=== PATIENT | male | born 1965 | race Caucasian/White ===

== ENCOUNTER → 2016-11-28 | Outpatient (CLI) | payer OTHER ==
[~2016-11-28] MED LIST: DOBUTamine DRIP for NUC MED 500 MG in DEXTROSE/WATER 1 250ML.BAG IV ONE; DOBUTamine DRIP for NUC MED 500 MG/250 ML BAG IV ONE
--- NOTE | 2016-11-28 09:05 | US ---
EXAMINATION TYPE: US thyroid st tissue head/neck DATE OF EXAM: 11/28/2016 8:47 AM COMPARISON: No previous CLINICAL HISTORY: R07.9 Chest Pain,R22.1 Mass of neck. Left neck palpable area x 6 months TECHNOLOGIST IMPRESSION: Scanned left neck palpable area: 0.5 x 0.5 x 0.5cm hypoechoic area, 0.7 x 0 .4 x 0.6cm hypoechoic vascular area - possible lymph node Scanned right neck for comparison: appears wnl at this time IMPRESSION: 2 small hypoechoic nodules in the region of the palpable mass on the left. These are not classic for lymph nodes. A CT scan of the neck would be suggested.
--- NOTE | 2016-11-28 10:47 | ECHOS ---
DATE OF SERVICE: 11/28/2016 AGE: 51Y SEX: M HT: 67" WT: 200 lbs. Protocol Colby: Others: Dobutamine Stress Echo Stage: 2 Dur. of Exercise: 8 min, 18 secs. *Heart Rate Blood Pressure *Rest: 90 Rest: 140/90 * *Max. Achieved: 148 Maximum BP: 116/50 85% PMHR: 143 100% PMHR: 168 *METS: - INDICATIONS: Chest pain. MEDICATIONS: Vitamins. Mr. Ortiz is a 51-year-old gentleman with history of smoking and shortness of breath and chest pain, being evaluated for cardiac status. STRESS DATA: Baseline EKG showed sinus rhythm with normal IA interval and QRS duration with mild ST-T changes in the inferolateral leads. Blood pressure at rest is 140/90 with a pulse rate of 90. Patient was given IV dobutamine and was titrated to 30 mcg, achieving a maximum heart rate of 148 with a blood pressure of 116/50. EKGs taken and during the exercise showed more pronounced ST-T abnormalities in the inferolateral leads, but felt to be nonspecific because of baseline EKG changes. Patient did not experience any chest pain. Baseline echo images show normal wall motion and thickening. Exercise echo images taken at low-dose and high-dose dobutamine showed augmentation of the wall motion and thickening in all the segments. FINAL IMPRESSION: 1. Nondiagnostic dobutamine stress test because of baseline EKG abnormalities. 2. Negative dobutamine stress echo.
== END | disposition home or self-care (01) ==
LOC: RADUSMAIN 08:07
PROVIDERS: ATTEND Family Medicine
DX: E04.2 Nontoxic multinodular goiter (principal); R07.9 Chest pain, unspecified
CPT/HCPCS: 76536; 93017; 93350

== ENCOUNTER → 2016-12-07 | Outpatient (CLI) | payer OTHER ==
--- NOTE | 2016-12-07 07:39 | CT ---
EXAMINATION TYPE: CT soft tissue neck w con DATE OF EXAM: 12/07/2016 7:12 AM COMPARISON: NONE HISTORY: Lt neck mass CT DLP: 746 mGycm Automated exposure control for dose reduction was used. CONTRAST: CT scan of the neck is performed following with IV Contrast, patient injected with 100 ml mL of Omnip aque 300. Axial images are obtained, coronal and sagittal reformatted images are reviewed. FINDINGS: Visualized intracranial structures are unremarkable. There are mild emphysematous changes throughout the lungs. Vertebral body height and alignment are maintained. Atlantoaxial relationships are normal. There is n o significant degenerative change. In the region of the patient's neck mass there is a prominent external jugular vein. No soft tissue m asses seen. Major salivary glands are unremarkable. The parapharyngeal, oropharyngeal and laryngeal soft tissues are normal. The thyroid gland enhances homogeneously. There is some shotty deep cervical adenopathy. No pathologically enlarged lymph nodes are seen. IMPRESSION: 1. Emphysematous changes within the lungs. 2. No soft tissue mass in the region of the patient's neck mass. There is a prominent external jugula r vein.
== END | disposition home or self-care (01) ==
LOC: RADCTMAIN 06:44
PROVIDERS: ATTEND Family Medicine
DX: R22.1 Localized swelling, mass and lump, neck (principal)
CPT/HCPCS: 70491; Q9967

== ENCOUNTER 2020-01-15 16:24 | Emergency (ER) | payer BC, OTHER ==
--- NOTE | 2020-01-15 17:29 | ED ---
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 No trauma. Patient notes slightly PG mostly in his left ankle but he does not some swelling in both legs tightness of his left calf no significant tenderness of his right calf. No cervical medical history takes no medication. Patient denying current chest pain no shortness of breath. No prior history of blood clot or DVT, no history of PE. Patient does smoke no significant alcohol history MD Complaint: extremity pain, extremity swelling, other (Bilateral lower extr emity edema and swelling worsen left) -: days(s) Location: lower extremity, bilateral lower extremity History of Same: No Radiation: none Severity scale (1-10): 3 Consistency: constant Improves with: nothing Worsens with: nothing Associated Symptoms: denies other symptoms - Related Data Allergies Allergy/AdvReac Type Severity Reaction Status Date / Time No Known Allergies Allergy Unverified 01/15/20 16:30 Review of Systems ROS Statement: Those systems with pertinent positive or pertinent negative responses have been documented in the HPI. ROS Other: All systems not noted in ROS Statement are negative. Past Medical History Past Medical History: Hypertension History of Any Multi-Drug Resistant Organisms: None Reported Past Surgical History: Orthopedic Surgery Past Psychological History: No Psychological Hx Reported Smoking Status: Former smoker Past Alcohol Use History: None Reported Past Drug Use History: None Reported General Exam Limitations: no limitations General appearance: alert, in no apparent distress Head exam: Present: atraumatic, normocephalic, normal inspection Eye exam: Present: normal appearance, PERRL, EOMI. Absent: scleral icterus, conjunctival injection, periorbital swelling ENT exam: Present: normal exam, mucous membranes moist Neck exam: Present: normal inspection. Absent: tenderness, meningismus, lymphadenopathy Respiratory exam: Present: normal lung sounds bilaterally. Absent: respiratory distress, wheezes, rales, rhonchi, stridor Cardiovascular Exam: Present: regular rate, normal rhythm, normal heart sounds. Absent: systolic murmur, diastolic murmur, rubs, gallop, clicks GI/Abdominal exam: Present: soft, normal bowel sounds. Absent: distended, tenderness, guarding, rebound, rigid Extremities exam: Present: normal inspection, full ROM, normal capillary refill. Absent: tenderness, pedal edema, joint swelling, calf tenderness Back exam: Present: normal inspection Neurological exam: Present: alert, oriented X3, CN II-XII intact Psychiatric exam: Present: normal affect, normal mood Skin exam: Present: warm, dry, intact, normal color. 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 Patient will be discharged - Radiology Data Radiology results: report reviewed (X-ray left ankle negative for traumatic injury bilateral ultrasound of lower extremities is negative for DVT), image reviewed Disposition Clinical Impression: Bilateral leg edema Disposition: HOME SELF-CARE Condition: Good Instructions (If sedation given, give patient instructions): Leg Edema (ED) Is patient prescribed a controlled substance at d/c from ED?: No Referrals: Ashlee Granados MD [Primary Care Provider] - 1-2 days
--- NOTE | 2020-01-15 17:53 | XR ---
EXAMINATION TYPE: XR chest 2V DATE OF EXAM: 01/15/2020 COMPARISON: NONE HISTORY: Swelling and pain TECHNIQUE: FINDINGS: Heart and mediastinum are normal. There is small linear density at the left lung base. The other lung hirsch are clear. There are no hilar masses. Bony thorax is intact. IMPRESSION: Subsegmental atelectasis at the left lung base. Normal heart.
--- NOTE | 2020-01-15 18:18 | US ---
EXAMINATION TYPE: US venous doppler duplex LE DATE OF EXAM: 01/15/2020 5:24 PM COMPARISON: NONE CLINICAL HISTORY: pain. bilateral feet swelling, no h/o dvt SIDE PERFORMED: Bilateral TECHNIQUE: The lower extremity deep venous system is examined utilizing real time linear array sonog nicole with graded compression, doppler sonography and color-flow sonography. VESSELS IMAGED: External Iliac Vein (EIV) Common Femoral Vein Deep Femoral Vein Greater Saphenous Vein * Femoral Vein Popliteal Vein Small Saphenous Vein * Proximal Calf Veins (* superficial vessels) Right Leg: Appears negative for DVT Left Leg: Appears negative for DVT IMPRESSION: Normal exam. No evidence of deep vein thrombosis in both legs.
[2020-01-15 18:35] VITALS: BP 144/100; PULSE 88; RESP 17; TEMP 97.6
--- NOTE | 2020-01-15 18:54 | XR ---
EXAMINATION TYPE: XR ankle complete LT DATE OF EXAM: 01/15/2020 COMPARISON: NONE HISTORY: Ankle pain and swelling TECHNIQUE: 3 views FINDINGS: Ankle mortise is anatomic. There is mild soft tissue swelling around the ankle joint. There is plantar calcaneal spurring. I see no fracture. IMPRESSION: Calcaneal spurring. No fracture seen.
== END 2020-01-15 19:10 | disposition home or self-care (01) ==
LOC: EC 16:24
DX: R60.0 Localized edema (principal); I10 Essential (primary) hypertension; Z87.891 Personal history of nicotine dependence
CPT/HCPCS: 71046; 93970; 99284

== ENCOUNTER 2021-03-01 13:35 | Inpatient (IN) | payer BC, OTHER ==
[2021-03-01] MEDS ORDERED: methylPREDNISolone SOD SUCCI 125 MG/2 ML VIAL IV STA (13:44)
[2021-03-01] MEDS ORDERED: ALBUTEROL HFA INHALER INHALATION STA (13:46)
--- NOTE | 2021-03-01 14:04 | ED ---
SOB HPI - General Chief Complaint: Shortness of Breath Stated Complaint: LUCINDA Time Seen by Provider: 03/01/21 13:35 Source: EMS, RN notes reviewed Mode of arrival: EMS Limitations: physical limitation - History of Present Illness Initial Comments: This is a 55-year-old male with a history of hypertension a former smoker who quit 5 years ago who states he had the onset 3 days ago of shortness of breath fever of up to 105 exertional dyspnea some cough no chest pain. He was seen at an outpatient clinic today and diagnosed with COVID-19 he was found be hypoxemic dyspneic. He was transported here by EMS. He did have saturations reported in the 70s or lower. Upon arrival here the patient was dyspneic he did seem to have some mildly and has abdominal area and chest. He was awake alert oriented 3. MD Complaint: shortness of breath - Related Data Home Medications Medication Instructions Recorded Confirmed amLODIPine [Norvasc] 10 mg PO HS 03/01/21 03/01/21 lisinopriL [Zestril] 5 mg PO HS 03/01/21 03/01/21 Allergies Allergy/AdvReac Type Severity Reaction Status Date / Time No Known Allergies Allergy Verified 03/01/21 15:07 Review of Systems ROS Statement: Those systems with pertinent positive or pertinent negative responses have been documented in the HPI. ROS Other: All systems not noted in ROS Statement are negative. Past Medical History Past Medical History: Hypertension History of Any Multi-Drug Resistant Organisms: None Reported Past Surgical History: Orthopedic Surgery Past Psychological History: No Psychological Hx Reported Smoking Status: Former smoker Past Alcohol Use History: None Reported Past Drug Use History: None Reported General Exam - General Exam Comments Initial Comments: This is a well-developed well-nourished awake alert oriented times 3 male Limitations: physical limitation General appearance: alert, anxious, in distress Head exam: Present: atraumatic, normocephalic, normal inspection Eye exam: Present: normal appearance, PERRL, EOMI. Absent: scleral icterus, conjunctival injection, periorbital swelling ENT exam: Present: mucous membranes dry Neck exam: Present: normal inspection. Absent: tenderness, meningismus, lymphadenopathy Respiratory exam: Present: respiratory distress, wheezes, rales, decreased breath sounds, other (Tachypnea). Absent: rhonchi, stridor Cardiovascular Exam: Present: normal rhythm, tachycardia, normal heart sounds. Absent: systolic murmur, diastolic murmur, rubs, gallop, clicks GI/Abdominal exam: Present: soft, normal bowel sounds. Absent: distended, tenderness, guarding, rebound, rigid Extremities exam: Present: normal inspection, full ROM, normal capillary refill. Absent: tenderness, pedal edema, joint swelling, calf tenderness Back exam: Present: normal inspection Neurological exam: Present: alert, oriented X3, CN II-XII intact Psychiatric exam: Present: normal affect, normal mood Skin exam: Present: warm, dry, intact, other (Some mottling of the chest abdominal wall to remedy involvement). Absent: rash Course Vital Signs 03/01/21 03/01/21 03/01/21 13:36 13:44 15:15 Temperature 98.3 F Pulse Rate 129 H 131 H 120 H Respiratory 30 H 30 H 29 H Rate Blood Pressure 151/88 148/90 145/87 O2 Sat by Pulse 88 L 92 L 90 L Oximetry 03/01/21 03/01/21 16:00 16:47 Temperature Pulse Rate 114 H Respiratory 26 H Rate Blood Pressure 123/97 O2 Sat by Pulse 83 L 86 L Oximetry - Reevaluation(s) Reevaluation #1: 03/01/21 17:15 I did reevaluate the patient's multiple occasions he is feeling somewhat improved he has shown some improvement in his pulse oximetry. Medical Decision Making - Medical Decision Making I did discuss findings with the patient and with Dr. Potts who did come see the patient in emergency department CT was negative for evidence of PE. Patient will be admitted for inpatient evaluation and treatment of COVID-19 pneumonia as well as hypoxemia bronchospasm. He does have an elevated lactic acid secondary to dehydration - Lab Data Result diagrams: 03/01/21 13:48 03/01/21 15:51 Lab Results 03/01/21 03/01/21 03/01/21 Range/Units 13:48 13:48 13:48 WBC 4.7 (3.8-10.6) k/uL RBC 6.03 H (4.30-5.90) m/uL Hgb 18.9 H (13.0-17.5) gm/dL Hct 54.7 H (39.0-53.0) % MCV 90.7 (80.0-100.0) fL MCH 31.3 (25.0-35.0) pg MCHC 34.5 (31.0-37.0) g/dL RDW 14.3 (11.5-15.5) % Plt Count 171 (150-450) k/uL MPV 8.5 Neutrophils % 82 % Lymphocytes % 10 % Monocytes % 5 % Eosinophils % 1 % Basophils % 1 % Neutrophils # 3.9 (1.3-7.7) k/uL Lymphocytes # 0.5 L (1.0-4.8) k/uL Monocytes # 0.2 (0-1.0) k/uL Eosinophils # 0.0 (0-0.7) k/uL Basophils # 0.1 (0-0.2) k/uL PT 10.5 (9.0-12.0) sec INR 1.0 (<1.2) APTT 21.6 L (22.0-30.0) sec D-Dimer 1.11 H (<0.60) mg/L FEU Sodium (137-145) mmol/L Potassium (3.5-5.1) mmol/L Chloride (98-107) mmol/L Carbon Dioxide (22-30) mmol/L Anion Gap mmol/L BUN (9-20) mg/dL Creatinine (0.66-1.25) mg/dL Est GFR (CKD-EPI)AfAm (>60 ml/min/1.73 sqM) Est GFR (CKD-EPI)NonAf (>60 ml/min/1.73 sqM) Glucose (74-99) mg/dL Lactic Ac Sepsis Rflx Plasma Lactic Acid Kavon 3.1 H* (0.7-2.0) mmol/L Calcium (8.4-10.2) mg/dL Magnesium (1.6-2.3) mg/dL Total Bilirubin (0.2-1.3) mg/dL AST (17-59) U/L ALT (4-49) U/L Alkaline Phosphatase (38-126) U/L Creatine Kinase (55-170) U/L Troponin I (0.000-0.034) ng/mL NT-Pro-B Natriuret Pep pg/mL Total Protein (6.3-8.2) g/dL Albumin (3.5-5.0) g/dL 05//21 05/05/21 05/05/21 Range/Units 13:48 13:48 14:42 WBC (3.8-10.6) k/uL RBC (4.30-5.90) m/uL Hgb (13.0-17.5) gm/dL Hct (39.0-53.0) % MCV (80.0-100.0) fL MCH (25.0-35.0) pg MCHC (31.0-37.0) g/dL RDW (11.5-15.5) % Plt Count (150-450) k/uL MPV Neutrophils % % Lymphocytes % % Monocytes % % Eosinophils % % Basophils % % Neutrophils # (1.3-7.7) k/uL Lymphocytes # (1.0-4.8) k/uL Monocytes # (0-1.0) k/uL Eosinophils # (0-0.7) k/uL Basophils # (0-0.2) k/uL PT (9.0-12.0) sec INR (<1.2) APTT (22.0-30.0) sec D-Dimer (<0.60) mg/L FEU Sodium (137-145) mmol/L Potassium (3.5-5.1) mmol/L Chloride (98-107) mmol/L Carbon Dioxide (22-30) mmol/L Anion Gap mmol/L BUN (9-20) mg/dL Creatinine (0.66-1.25) mg/dL Est GFR (CKD-EPI)AfAm (>60 ml/min/1.73 sqM) Est GFR (CKD-EPI)NonAf (>60 ml/min/1.73 sqM) Glucose (74-99) mg/dL Lactic Ac Sepsis Rflx Y Plasma Lactic Acid Kavon (0.7-2.0) mmol/L Calcium (8.4-10.2) mg/dL Magnesium (1.6-2.3) mg/dL Total Bilirubin (0.2-1.3) mg/dL AST (17-59) U/L ALT (4-49) U/L Alkaline Phosphatase (38-126) U/L Creatine Kinase (55-170) U/L Troponin I <0.012 (0.000-0.034) ng/mL NT-Pro-B Natriuret Pep 133 pg/mL Total Protein (6.3-8.2) g/dL Albumin (3.5-5.0) g/dL 03/01/21 Range/Units 15:51 WBC (3.8-10.6) k/uL RBC (4.30-5.90) m/uL Hgb (13.0-17.5) gm/dL Hct (39.0-53.0) % MCV (80.0-100.0) fL MCH (25.0-35.0) pg MCHC (31.0-37.0) g/dL RDW (11.5-15.5) % Plt Count (150-450) k/uL MPV Neutrophils % % Lymphocytes % % Monocytes % % Eosinophils % % Basophils % % Neutrophils # (1.3-7.7) k/uL Lymphocytes # (1.0-4.8) k/uL Monocytes # (0-1.0) k/uL Eosinophils # (0-0.7) k/uL Basophils # (0-0.2) k/uL PT (9.0-12.0) sec INR (<1.2) APTT (22.0-30.0) sec D-Dimer (<0.60) mg/L FEU Sodium 137 (137-145) mmol/L Potassium 4.3 (3.5-5.1) mmol/L Chloride 101 (98-107) mmol/L Carbon Dioxide 24 (22-30) mmol/L Anion Gap 12 mmol/L BUN 34 H (9-20) mg/dL Creatinine 1.42 H (0.66-1.25) mg/dL Est GFR (CKD-EPI)AfAm 64 (>60 ml/min/1.73 sqM) Est GFR (CKD-EPI)NonAf 55 (>60 ml/min/1.73 sqM) Glucose 168 H (74-99) mg/dL Lactic Ac Sepsis Rflx Plasma Lactic Acid Kavon (0.7-2.0) mmol/L Calcium 8.1 L (8.4-10.2) mg/dL Magnesium 2.1 (1.6-2.3) mg/dL Total Bilirubin 0.4 (0.2-1.3) mg/dL AST 58 (17-59) U/L ALT 30 (4-49) U/L Alkaline Phosphatase 85 (38-126) U/L Creatine Kinase 112 (55-170) U/L Troponin I (0.000-0.034) ng/mL NT-Pro-B Natriuret Pep pg/mL Total Protein 6.4 (6.3-8.2) g/dL Albumin 3.6 (3.5-5.0) g/dL - EKG Data -: EKG Interpreted by Me EKG shows normal: sinus rhythm EKG Comments: Sinus tachycardia rate 131. Interval 112 QRS duration 80 QT since QTC 386/[address] configuration - Radiology Data Radiology results: report reviewed (Imaging reviewed evidence of bilateral infiltrates consistent with COVID-19. No evidence of pulmonary emboli at this time), image reviewed Critical Care Time Critical Care Time: Yes Total Critical Care Time: 39 Critical Care Time: Critical care time includes initial presentation with history physical labs x- rays discussed with paramedics on arrival frequent reevaluation the patient response to treatment. Discussed with the patient regarding the findings discussed with the main physician admission orders and documentation of the above Disposition Clinical Impression: Pneumonia due to COVID-19 virus, Bronchospasm, acute, Dehydration, Hypoxemia, Lactic acidosis Disposition: ADMITTED IP TO THIS HOSP Condition: Serious Referrals: Ashlee Granados MD [Primary Care Provider] - 1-2 days
--- NOTE | 2021-03-01 14:09 | XR ---
EXAMINATION TYPE: XR chest 1V portable DATE OF EXAM: 03/01/2021 HISTORY: Dyspnea, Covid postitive COMPARISON: 01/15/2020 TECHNIQUE: Single view of the chest is submitted. FINDINGS: Demonstrated are scattered senescent parenchymal change. Interval development of interstitial perihilar and basilar infiltrates compatible with Covid 19 pneum onia. The heart is stable. Hilar and mediastinal structures are within normal limits. Degenerative changes are seen of the dorsal spine. IMPRESSION: 1. Interval development of interstitial perihilar and basilar infiltrates compatible with Covid 19 p neumonia.
[2021-03-01 14:21] LABS: Basophils # (A) 0.1 k/uL (0-0.2); Basophils % (A) 1 %; Eosinophils % (A) 1 %; HCT 54.7 % (39.0-53.0); HGB 18.9 gm/dL (13.0-17.5); Lymphocytes # (A) 0.5 k/uL (1.0-4.8); Lymphocytes % (A) 10 %; MCH 31.3 pg (25.0-35.0); MCHC 34.5 g/dL (31.0-37.0); MCV 90.7 fL (80.0-100.0); Mean Platelet Volume 8.5; Monocytes # (A) 0.2 k/uL (0-1.0); Monocytes % (A) 5 %; Neutrophils # (A) 3.9 k/uL (1.3-7.7); Neutrophils % (A) 82 %; Platelet Count 171 k/uL (150-450); RBC 6.03 m/uL (4.30-5.90); RDW 14.3 % (11.5-15.5); WBC 4.7 k/uL (3.8-10.6)
[2021-03-01 14:49] LABS: Partial Thromboplastin Time 21.6 sec (22.0-30.0); Prothrombin Time 10.5 sec (9.0-12.0)
[2021-03-01] MEDS ORDERED: SODIUM CHLORIDE 0.9% 1,000 ML IV STA ×2 (14:51)
--- NOTE | 2021-03-01 16:03 | CT ---
EXAMINATION TYPE: CT angio chest DATE OF EXAM: 03/01/2021 3:54 PM COMPARISON: Chest x-ray earlier today. HISTORY: Shortness of breath. Positive d-dimer. CT DLP: 548.2 mGycm Automated exposure control for dose reduction was used. CONTRAST: CTA scan of the thorax is performed with IV Contrast, patient injected with 100 mL of Isovue 370, pul monary embolism protocol. MIP images are created and reviewed. FINDINGS: LUNGS: Moderate emphysematous change greatest in the upper lungs. Overall mosaic attenuation with mor e confluent opacities in the lower lungs. No pleural effusion or pneumothorax. MEDIASTINUM: There is satisfactory enhancement of the pulmonary artery and its branches, there is no CT evidence for pulmonary embolism. Satisfactory enhancement of the aorta without dissection or aneu rysm There are prominent bilateral hilar lymph nodes. Coronary artery calcification noted. No cardi omegaly or pericardial effusion is seen. OTHER: Visualized liver hypodense consistent with diffuse fatty infiltration. Levoconvex scoliosis c entered upper to mid thoracic spine. IMPRESSION: No CT evidence for acute pulmonary embolism. Multifocal and confluent groundglass opaciti es with lower lung organizing consolidations bilaterally consistent with covid-19 infection.
[2021-03-01 16:22] LABS: Albumin 3.6 g/dL (3.5-5.0); Calcium 8.1 mg/dL (8.4-10.2); Magnesium 2.1 mg/dL (1.6-2.3); Potassium 4.3 mmol/L (3.5-5.1); Total Bilirubin 0.4 mg/dL (0.2-1.3); Total Protein 6.4 g/dL (6.3-8.2)
[2021-03-01] MEDS ORDERED: ACETAMINOPHEN TAB 325 MG TAB PO PRN (17:27)
[2021-03-01] MEDS ORDERED: NALOXONE 0.4 MG/ML 1 ML VIAL IV PRN (17:28)
[2021-03-01 18:38] LABS: Partial Thromboplastin Time 22.6 sec (22.0-30.0); Prothrombin Time 10.3 sec (9.0-12.0)
[2021-03-01 19:09] LABS: C Reactive Protein 15.4 mg/dL (<1.0)
[2021-03-01] MEDS: ALBUTEROL HFA INHALER INHALATION PRN (20:23)
[2021-03-01] MEDS ORDERED: lisinopriL 5 MG TAB PO SCH (21:00)
[2021-03-01] MEDS: amLODIPine 10 MG TAB PO SCH (21:19)
[2021-03-01] MEDS: FAMOTIDINE 20 MG TAB PO SCH (21:19)
--- NOTE | 2021-03-02 00:08 | P.HPIM ---
History of Present Illness H&P Date: 03/01/21 Chief Complaint: LUCINDA Patient is a 55-year-old male with a known history of hypertension and previous history of smoking presents to ER due to worsening shortness of breath since Saturday. Patient states that he flew from [place] about 3 days ago and since then he has been having fever exertional dyspnea and cough and shortness of breath which has been worsening since then. Patient was seen at outpatient clinic today and was diagnosed with COVID-19. Patient was found to be hypoxic and was having exertional dyspnea and sent to ER. Pulse ox was in the 70s as reported. Patient was dyspneic on on admission and was placed on 100% nonrebreather at 15 L oxygen and FiO2 90%. Her oxygen saturations went up to 88 to 90%. On admission blood pressure was 151/88 respiratory rate 30 heart rate 129 and pulse ox 88% on 15 L oxygen via nonrebreather. Chest x-ray showed interval development of interstitial perihilar and basilar infiltrates compatible with COVID-19 pneumonia. CTA chest showed no evidence of PE. Multifocal and confluent groundglass opacities with lower lung organizing consolidation bilaterally consistent with COVID-19 infection EKG showed sinus tachycardia Review of Systems Constitutional: Patient does have fever. no chills . generalized weakness and fatique. Abdomen: Patient denied nausea vomiting and diarrhea and abdominal pain. Cardiovascular: Patient denies any chest pain. +short of breath no palpitations. Respiratory:Patient does have cough without sputum production. + shortness of breath Neurologic: Patient denied any numbness or tingling headache. Musculoskeletal: Patient denies any complaints of joint swelling or deformity. Skin: Negative Psychiatric: Negative Endocrine: No heat or cold intolerance. No recent weight gain. Genitourinary: No dysuria or hematuria. All other 14 point ROS negative except the above Past Medical History Past Medical History: Hypertension History of Any Multi-Drug Resistant Organisms: None Reported Past Surgical History: Orthopedic Surgery Past Psychological History: No Psychological Hx Reported Smoking Status: Former smoker Past Alcohol Use History: None Reported Past Drug Use History: None Reported Medications and Allergies Home Medications Medication Instructions Recorded Confirmed Type amLODIPine [Norvasc] 10 mg PO HS 03/01/21 03/01/21 History lisinopriL [Zestril] 5 mg PO HS 03/01/21 03/01/21 History Allergies Allergy/AdvReac Type Severity Reaction Status Date / Time No Known Allergies Allergy Verified 03/01/21 15:07 Physical Exam Vitals: Vital Signs Temp Pulse Pulse Resp BP BP Pulse Ox 03/01/21 20:00 98.2 F 116 H 22 137/75 03/01/21 18:15 109 H 26 H 122/75 89 L 03/01/21 16:47 114 H 26 H 123/97 86 L 03/01/21 16:00 83 L 03/01/21 15:15 120 H 29 H 145/87 90 L 03/01/21 13:44 131 H 30 H 148/90 92 L 03/01/21 13:36 98.3 F 129 H 30 H 151/88 88 L Intake and Output 03/01/21 03/01/21 03/02/21 14:59 22:59 06:59 Other: Weight 99.79 kg 99.79 kg PHYSICAL EXAMINATION: Patient is lying in the bed comfortably, appears to be in mild distress, awake alert and oriented.. HEENT: Normocephalic. Neck is supple. Pupils reactive. Nostrils clear. Oral cavity is moist. Ears reveal no drainage. Neck reveals no JVD, carotid bruits, or thyromegaly. CHEST EXAMINATION: Trachea is central. Symmetrical expansion. Bilateral coarse breath sounds. No wheezing or rhonchi.. CARDIAC: Normal S1, S2 with no gallops. No murmurs ABDOMEN: Soft. Bowel sounds normal. No organomegaly. No abdominal bruits. Extremities: reveal no edema. No clubbing or cyanosis Neurologically awake, alert, oriented x3 with well-coordinated movements. No focal deficits noted Skin: No rash or skin lesions. Psychiatric: Coperative. Nonsuicidal Musculoskeletal: No joint swelling or deformity. Normal range of motion. Results CBC & Chem 7: 03/01/21 13:48 03/01/21 15:51 Labs: Abnormal Lab Results - Last 24 Hours (Table) 03/01/21 03/01/21 03/01/21 Range/Units 13:48 13:48 13:48 RBC 6.03 H (4.30-5.90) m/uL Hgb 18.9 H (13.0-17.5) gm/dL Hct 54.7 H (39.0-53.0) % Lymphocytes # 0.5 L (1.0-4.8) k/uL APTT 21.6 L (22.0-30.0) sec D-Dimer 1.11 H (<0.60) mg/L FEU BUN (9-20) mg/dL Creatinine (0.66-1.25) mg/dL Glucose (74-99) mg/dL Plasma Lactic Acid Kavon 3.1 H* (0.7-2.0) mmol/L Calcium (8.4-10.2) mg/dL Lactate Dehydrogenase (313-618) U/L C-Reactive Protein (<1.0) mg/dL 03/01/21 03/01/21 Range/Units 15:51 18:21 RBC (4.30-5.90) m/uL Hgb (13.0-17.5) gm/dL Hct (39.0-53.0) % Lymphocytes # (1.0-4.8) k/uL APTT (22.0-30.0) sec D-Dimer (<0.60) mg/L FEU BUN 34 H (9-20) mg/dL Creatinine 1.42 H (0.66-1.25) mg/dL Glucose 168 H (74-99) mg/dL Plasma Lactic Acid Kavon (0.7-2.0) mmol/L Calcium 8.1 L (8.4-10.2) mg/dL Lactate Dehydrogenase 2539 H (313-618) U/L C-Reactive Protein 15.4 H (<1.0) mg/dL Thrombosis Risk Factor Assmnt - DVT/VTE Prophylaxis DVT/VTE Prophylaxis: Pharmacologic Prophylaxis ordered Assessment and Plan Assessment: Acute hypoxic respiratory failure secondary to COVID-19 pneumonia Acute COVID-19 pneumonia with multifocal groundglass opacities with lower lung organizing consolidation. Elevated D-dimer level with no evidence of PE on CTA chest Lactic acidosis secondary to hypoxia improved now Leukopenia Acute kidney injury with creatinine 1.42 Elevated inflammatory markers Hypertension DVT prophylaxis Lovenox. Plan: Patient will be continued on oxygen supplementation at 15 L via nonrebreather. Patient was started on dexamethasone 6 mg daily, Lovenox 40 mg subcu daily and breathing treatments will be started. Continue with multivitamins and follow-up closely. Pulmonary will be consulted and further recommendations based on clinical course. Prognosis guarded at this time. Time with Patient: Greater than 30
[2021-03-02 07:55] LABS: Basophils % (A) 0 %; Eosinophils % (A) 0 %; HCT 47.3 % (39.0-53.0); HGB 16.6 gm/dL (13.0-17.5); Lymphocytes # (A) 0.4 k/uL (1.0-4.8); Lymphocytes % (A) 9 %; MCH 31.7 pg (25.0-35.0); MCHC 35.1 g/dL (31.0-37.0); MCV 90.2 fL (80.0-100.0); Mean Platelet Volume 7.7; Monocytes # (A) 0.3 k/uL (0-1.0); Monocytes % (A) 6 %; Neutrophils # (A) 3.5 k/uL (1.3-7.7); Neutrophils % (A) 83 %; Platelet Count 168 k/uL (150-450); RBC 5.24 m/uL (4.30-5.90); WBC 4.2 k/uL (3.8-10.6)
[2021-03-02 08:03] LABS: African American GFR (CKD) >90 (>60 ml/min/1.73 sqM); Anion Gap 9 mmol/L; Blood Urea Nitrogen 26 mg/dL (9-20); C Reactive Protein 8.9 mg/dL (<1.0); Calcium 8.3 mg/dL (8.4-10.2); Carbon Dioxide 23 mmol/L (22-30); Chloride 106 mmol/L (98-107); Glucose 191 mg/dL (74-99); Non-African American GFR(CKD) >90 (>60 ml/min/1.73 sqM); Potassium 4.5 mmol/L (3.5-5.1); Sodium 138 mmol/L (137-145)
[2021-03-02 08:40] LABS: LDH 2581 U/L (313-618)
[2021-03-02] MEDS ORDERED: dexAMETHasone 2 MG TAB PO SCH (09:00)
[2021-03-02] MEDS: ASCORBIC ACID 500 MG TAB PO SCH (09:39)
[2021-03-02] MEDS: ZINC SULFATE 220 MG CAP PO SCH (09:39)
[2021-03-02] MEDS: FAMOTIDINE 20 MG TAB PO SCH ×2 (09:39→21:43)
[2021-03-02] MEDS: ENOXAPARIN 40 MG/0.4 ML SYRINGE SQ SCH (09:40)
[2021-03-02] MEDS: CHOLECALCIFEROL 25 MCG (1000 IU) TABLET PO SCH (09:40)
--- NOTE | 2021-03-02 10:08 | P.CNPUL ---
History of Present Illness Consult date: 03/02/21 Reason for consult: dyspnea, hypoxemia History of present illness: 55-year-old male patient, diagnosed having COVID-19 infection, as the patient started getting symptomatic approximately 5 days ago. He started having some fevers initially and following that he started having increased cough and shortness of breath and for that reason he came into the hospital. He was diagnosed having COVID-19 pneumonia. In the emergency department, the patient was hypoxic with pulse ox of 70% and he was short of breath. He was placed on 100% nonrebreather facemask and his pulse ox was brought up to 90%. He was hemodynamically stable. His chest x-ray showed bilateral interstitial pulmonary infiltrates most on the lower lobes although difficulties are rather diffuse. His blood work at a time of admission showed normal white cell count of 4.2 with a lymphopenia. His d-dimer is at 1.1, he had an acute kidney injury with a creatinine of 1.4 which improvement in the creatinine is down to 0.9, LDH is significantly elevated at 2539, with a CRP level of 15.4 and appropriate acetone level of 0.4. Coagulation profile is within normal limits. Blood sugar was 168. He also underwent a CT angiogram of the chest that showed no evidence of any pulmonary embolism. There was found to have emphysema and a background in addition to bilateral groundglass pulmonary infiltrates scattered throughout the lung hirsch bilaterally both in the upper and lower lobes. Some minimal areas of consolidation in the lung bases. The rest is essentially consistent with groundglass pulmonary infiltrates. No mediastinal lymphadenopathy. No pulmonary embolism. 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 He was in [place] on his last trip, he started getting symptomatic approximately 5 days ago. He was in [place] and [place] the week prior. It, the patient's oxidation got worse and the patient was placed on high flow oxygen and currently is on 60 L of oxygen by nasal cannula with a 90% FiO2 and a nonrebreather facemask. He is currently on Decadron 6 mg by mouth on a daily basis and the patient is also on Lovenox 40 mg subcu daily. Comorbid conditions include COPD and hypertension. 69 was quite dehydrated as the patient was not taken oral intake and he was quite intrava scularly depleted with an acute kidney injury. Review of Systems Constitutional: Reports fatigue, Reports fever, Reports lethargy Eyes: denies as per HPI, denies blurred vision, denies bulging eye, denies decreased vision, denies diplopia, denies discharge, denies dry eye, denies irritation, denies itching, denies pain, denies photophobia, denies loss of peripheral vision, denies loss of vision, denies tunnel vision/blind spots Ears: deny: decreased hearing, ear discharge, earache, tinnitus Ears, nose, mouth and throat: Reports as per HPI Cardiovascular: Reports decreased exercise tolerance, Reports dyspnea on exertion Respiratory: Reports cough, Reports dyspnea Gastrointestinal: Reports as per HPI Genitourinary: Reports as per HPI Musculoskeletal: Reports as per HPI Musculoskeletal: absent: ankle pain, ankle stiffness, ankle swelling, as per HPI, elbow pain, elbow stiffness, elbow swelling, foot pain, foot stiffness, rafa t swelling, hand pain, hand stiffness, hand swelling, hip pain, hip stiffness, hip swelling, knee pain, knee stiffness, knee swelling, shoulder pain, shoulder stiffness, shoulder swelling, wrist pain, wrist stiffness, wrist swelling Integumentary: Reports as per HPI Neurological: Reports as per HPI Psychiatric: Reports as per HPI Endocrine: Reports as per HPI Hematologic/Lymphatic: Reports as per HPI Allergic/Immunologic: Reports as per HPI Past Medical History Past Medical History: COPD, Hypertension History of Any Multi-Drug Resistant Organisms: None Reported Past Surgical History: Orthopedic Surgery Past Psychological History: No Psychological Hx Reported Smoking Status: Former smoker Past Alcohol Use History: None Reported Past Drug Use History: None Reported Medications and Allergies Home Medications Medication Instructions Recorded Confirmed Type amLODIPine [Norvasc] 10 mg PO HS 03/01/21 03/01/21 History lisinopriL [Zestril] 5 mg PO HS 03/01/21 03/01/21 History Allergies Allergy/AdvReac Type Severity Reaction Status Date / Time No Known Allergies Allergy Verified 03/01/21 15:07 Physical Exam Vitals: Vital Signs Temp Pulse Pulse Resp BP BP Pulse Ox 03/02/21 04:00 107 H 20 130/75 91 L 03/02/21 02:00 109 H 20 03/02/21 00:00 98.2 F 109 H 20 123/75 03/01/21 20:00 98.2 F 116 H 22 137/75 03/01/21 18:15 109 H 26 H 122/75 89 L 03/01/21 16:47 114 H 26 H 123/97 86 L 03/01/21 16:00 83 L 03/01/21 15:15 120 H 29 H 145/87 90 L 03/01/21 13:44 131 H 30 H 148/90 92 L 03/01/21 13:36 98.3 F 129 H 30 H 151/88 88 L Intake and Output 03/01/21 03/02/21 03/02/21 22:59 06:59 14:59 Output Total 500 Balance -500 Output: Urine 500 Other: Voiding Method Urinal Weight 99.79 kg 97 kg Having some labored breathing and his a mild degree of respiratory distress currently on high flow oxygen at 60 L with 100% nonrebreather facemask Head exam was generally normal. There was no scleral icterus or corneal arcus. Mucous membranes were moist. Neck was supple and without jugular venous distension, thyromegaly, or carotid bruits. Carotids were easily palpable bilaterally. There was no adenopathy. Lungs sounds are diminished and the patient has crackles in the mid and lower lung hirsch bilaterally. Scattered expiratory wheeze Cardiac exam revealed the PMI to be normally situated and sized. The rhythm was regular and no extrasystoles were noted during several minutes of auscultation. The first and second heart sounds were normal and physiologic splitting of the second heart sound was noted. There were no murmurs, rubs, clicks, or gallops. Abdominal exam revealed normal bowel sounds. The abdomen was soft, non-tender, and without masses, organomegaly, or appreciable enlargement of the abdominal aorta. Examination of the extremities revealed easily palpable radial, femoral and pedal pulses. There was no cyanosis, clubbing or edema. Examination of the skin revealed no evidence of significant rashes, suspicious appearing nevi or other concerning lesions. Neurologically, the patient is awake and alert and the patient does not have any focal neurological deficit. Cranial nerves are essentially intact. Results - Laboratory Findings CBC and BMP: 03/02/21 06:58 03/02/21 06:58 PT/INR, D-dimer PT 10.3 sec (9.0-12.0) 03/01/21 18:21 INR 1.0 (<1.2) 03/01/21 18: D-Dimer 1.11 mg/L FEU (<0.60) H 03/01/21 13:48 Abnormal lab findings: Abnormal Labs 03/01/21 03/01/21 03/01/21 13:48 13:48 13:48 RBC 6.03 H Hgb 18.9 H Hct 54.7 H Lymphocytes # 0.5 L APTT 21.6 L D-Dimer 1.11 H BUN Creatinine Glucose Plasma Lactic Acid Kavon 3.1 H* Calcium Lactate Dehydrogenase C-Reactive Protein Procalcitonin 03/01/21 03/01/21 03/01/21 15:51 18:21 18:21 RBC Hgb Hct Lymphocytes # APTT D-Dimer BUN 34 H Creatinine 1.42 H Glucose 168 H Plasma Lactic Acid Kavon Calcium 8.1 L Lactate Dehydrogenase 2539 H C-Reactive Protein 15.4 H Procalcitonin 0.40 H 03/02/21 03/02/21 06:58 06:58 RBC Hgb Hct Lymphocytes # 0.4 L APTT D-Dimer BUN 26 H Creatinine Glucose 191 H Plasma Lactic Acid Kavon Calcium 8.3 L Lactate Dehydrogenase 2581 H C-Reactive Protein 8.9 H Procalcitonin - Diagnostic Findings Chest x-ray: image reviewed CT scan - chest: image reviewed Assessment and Plan Plan: 1 Acute COVID-19 related pneumonia with diffuse but the pulmonary infiltrates/groundglass changes. Patient started getting symptoms approximately 5 days ago and the patient was diagnosed having COVID-19 infection on 03/01/2021 and a diagnosis was established at [facility]. He is quite hypoxic and he presented with significant shortness of breath and hypoxemia the time of admission and currently is on high flow oxygen 60 L with an FiO2 of 90% and the patient is also utilizing 100% on a beta facemasks. 2 Acute hypoxic respiratory failure secondary to above 3 elevated inflammatory markers secondary to COVID-19 related infection/pneumonia 4 COPD 5 acute kidney injury, improving 6 hypertension Plan Continue high flow oxygen and titrate oxygen flow to maintain a saturation above 90%. For now, the patient is going to require high flow oxygen 6 L with an FiO2 of 90% and 100% on a beta facemask. We'll may utilize BiPAP or noninvasive modes for respiratory support based on his overall clinical condition and his oxygenation. High risk for intubation mechanical ventilation at this point in time. Continue with Decadron and increase the dose to 6 mg every 12 hours Order Tocilizumab 700 grams IV piggyback as the patient is felt to be in his inflammatory phase without any clear signs of an infection and he would benefit from a combination of immunosuppression including this medication and Decadron Lovenox 40 mg subcu daily prophylaxis Vitamin C vitamin D and zinc oxide IV fluids at 75 mL an hour normal saline Transfer the patient to the ICU for further monitoring Monitor inflammatory markers We'll continue to follow
[2021-03-02 11:35] LABS: Ferritin 2293.6 ng/mL (22.0-322.0)
[2021-03-02] MEDS ORDERED: TOCILIZUMAB 720 MG in SODIUM CHLORIDE 0.9% 64 ML IV ONE (12:00)
[2021-03-02 12:51] LABS: Glucose,Whole Blood 169 mg/dL (75-99)
[2021-03-02] MEDS: ALBUTEROL HFA INHALER INHALATION PRN ×3 (14:09→21:14)
[2021-03-02] MEDS ORDERED: FLUTICASONE 50MCG/SPRAY NASAL 16GM EA NOSTRIL PRN (14:46)
[2021-03-02 16:29] LABS: Glucose,Whole Blood 183 mg/dL (75-99)
[2021-03-02] MEDS: SODIUM CHLORIDE 0.9% 1,000 ML IV SCH (16:40)
[2021-03-02] MEDS: DEXAMETHASONE SOD PHOSPHATE 10 MG/ML 1 ML VIAL IV SCH (21:42)
[2021-03-02] MEDS: amLODIPine 10 MG TAB PO SCH (21:43)
[2021-03-02 22:17] LABS: Glucose,Whole Blood 178 mg/dL (75-99)
[2021-03-03 04:54] LABS: C Reactive Protein 4.6 mg/dL (<1.0)
--- NOTE | 2021-03-03 05:48 | XR ---
EXAMINATION TYPE: XR chest 1V portable DATE OF EXAM: 03/03/2021 CLINICAL HISTORY: Difficulty breathing and covid progress study. TECHNIQUE: Single AP portable upright view of the chest is obtained. COMPARISON: Chest x-ray and CT chest from 2 days earlier FINDINGS: Persistent bilateral multifocal and confluent opacities greatest in the lower lungs. Cardi ac silhouette size is stable and upper limits of normal. Underlying scoliosis is present. IMPRESSION: Bilateral multifocal and confluent opacities consistent with covid-19 infection, no signi ficant change from 2 days earlier.
[2021-03-03] MEDS: SODIUM CHLORIDE 0.9% 1,000 ML IV SCH ×2 (07:34→22:25)
[2021-03-03] MEDS: ALBUTEROL HFA INHALER INHALATION PRN ×3 (08:00→19:30)
--- NOTE | 2021-03-03 08:27 | P.PN ---
Subjective Progress Note Date: 03/03/21 55-year-old male patient, diagnosed having COVID-19 infection, as the patient started getting symptomatic approximately 5 days ago. He started having some fevers initially and following that he started having increased cough and shortness of breath and for that reason he came into the hospital. He was di agnosed having COVID-19 pneumonia. In the emergency department, the patient was hypoxic with pulse ox of 70% and he was short of breath. He was placed on 100% nonrebreather facemask and his pulse ox was brought up to 90%. He was hemodynamically stable. His chest x-ray showed bilateral interstitial pulmonary infiltrates most on the lower lobes although difficulties are rather diffuse. His blood work at a time of admission showed normal white cell count of 4.2 with a lymphopenia. His d-dimer is at 1.1, he had an acute kidney injury with a creatinine of 1.4 which improvement in the creatinine is down to 0.9, LDH is significantly elevated at 2539, with a CRP level of 15.4 and appropriate acetone level of 0.4. Coagulation profile is within normal limits. Blood sugar was 168. He also underwent a CT angiogram of the chest that showed no evidence of any pulmonary embolism. There was found to have emphysema and a background in addition to bilateral groundglass pulmonary infiltrates scattered throughout the lung hirsch bilaterally both in the upper and lower lobes. Some minimal areas of consolidation in the lung bases. The rest is essentially consistent with groundglass pulmonary infiltrates. No mediastinal lymphadenopathy. No pulmonary embolism. 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 He was in [place] on his last trip, he started getting symptomatic approximately 5 days ago. He was in [place] and [place] the week prior. It, the patient's oxidation got worse and the patient was placed on high flow oxygen and currently is on 60 L of oxygen by nasal cannula with a 90% FiO2 and a nonrebreather facemask. He is currently on Decadron 6 mg by mouth on a daily basis and the patient is also on Lovenox 40 mg subcu daily. Comorbid conditions include COPD and hypertension. 70 was quite dehydrated as the patient was not taken oral intake and he was quite intravascularly depleted with an acute kidney injury. On 03/03/2021 patient seen in follow-up in the intensive care unit, he is resting in bed on his left side, he is currently on Airvo 60 L and FiO2 of 90% and 100% nonrebreather mask and his pulse ox is 90-95%. He has 0.9 normal saline at 75 ML per hour, no other drips, he status post Tocilizumab 720 mg IV infusion yesterday on 03/02/2021. He is on Decadron 6 mg twice daily, she is on prophylactic dose of Lovenox, CTA chest showed no evidence of pulmonary embolism. Today's d-dimer is 1.16, LDH is 2590, and CRP is 4.6. Clinically patient states he is breathing easier, and she doesn't desaturate as low with repositioning, he has been positioning self in bed, and self proning, tolerating activity well, no nausea vomiting or diarrhea, and today she states she's actually feeling hungry. Today's chest x-ray also bilateral multifocal and confluent opacities consistent with COVID-19 infection stable in appearance compared to days ago. Objective - Vital Signs Vital signs: Vital Signs Temp 98.5 F 03/02/21 22:00 Pulse 92 03/03/21 08:00 Resp 41 H 03/03/21 08:00 BP 125/70 03/03/21 07:00 Pulse Ox 96 03/03/21 08:00 Intake & Output 03/02/21 03/03/21 03/03/21 18:59 06:59 18:59 Intake Total 450 1900 75 Output Total 710 850 50 Balance -260 1050 25 Weight 98.5 kg 96.1 kg Intake: IV 150 900 75 Sodium Chloride 0.9% 1, 150 900 75 000 ml @ 75 mls/hr IV . [id number] ELENA Rx#:[id number] Intake, IV Titration 60 Amount Sodium Chloride 0.9% 1, 60 000 ml @ 130 mls/hr IV . [id number] STA Rx#:[id number] Oral 240 1000 Output: Urine 710 850 50 Other: Voiding Method Urinal Indwelling Catheter - Exam GENERAL EXAM: Alert, , 55-year-old white male, laying on his left side in bed in the intensive care unit, on Airvo at 60 L and FiO2 of 90% and 100% nonrebreather mask, with pulse ox ranging between 90-95%comfortable in no apparent distress. HEAD: Normocephalic/atraumatic. EYES: Normal reaction of pupils, equal size. Conjunctiva pink, sclera white. NOSE: Clear with pink turbinates. THROAT: No erythema or exudates. NECK: No masses, no JVD, no thyroid enlargement, no adenopathy. CHEST: No chest wall deformity. Symmetrical expansion. LUNGS: Equal air entry with diminished breath sounds at the bases, no crackles, no rhonchi no wheezes CVS: Regular rate and rhythm, normal S1 and S2, no gallops, no murmurs, no rubs ABDOMEN: Soft, nontender. No hepatosplenomegaly, normal bowel sounds, no guarding or rigidity. EXTREMITIES: No clubbing, no edema, no cyanosis, 2+ pulses and upper and lower extremities. MUSCULOSKELETAL: Muscle strength and tone normal. SPINE: No scoliosis or deformity SKIN: No rashes CENTRAL NERVOUS SYSTEM: Alert and oriented -3. No focal deficits, tone is normal in all 4 extremities. PSYCHIATRIC: Alert and oriented -3. Appropriate affect. Intact judgment and insight. - Labs CBC & Chem 7: 03/02/21 06:58 03/02/21 06:58 Labs: Abnormal Lab Results - Last 24 Hours (Table) 03/02/21 03/02/21 03/02/21 Range/Units 06:58 06:58 12:49 D-Dimer 0.97 H (<0.60) mg/L FEU BUN 26 H (9-20) mg/dL Glucose 191 H (74-99) mg/dL POC Glucose (mg/dL) 169 H (75-99) mg/dL Calcium 8.3 L (8.4-10.2) mg/dL Ferritin 2293.6 H (22.0-322.0) ng/mL Lactate Dehydrogenase 2581 H (313-618) U/L C-Reactive Protein 8.9 H (<1.0) mg/dL 03/02/21 03/02/21 03/03/21 Range/Units 16:28 22:15 04:03 D-Dimer 1.16 H (<0.60) mg/L FEU BUN (9-20) mg/dL Glucose (74-99) mg/dL POC Glucose (mg/dL) 183 H 178 H (75-99) mg/dL Calcium (8.4-10.2) mg/dL Ferritin (22.0-322.0) ng/mL Lactate Dehydrogenase (313-618) U/L C-Reactive Protein (<1.0) mg/dL 03/03/21 Range/Units 04:03 D-Dimer (<0.60) mg/L FEU BUN (9-20) mg/dL Glucose (74-99) mg/dL POC Glucose (mg/dL) (75-99) mg/dL Calcium (8.4-10.2) mg/dL Ferritin (22.0-322.0) ng/mL Lactate Dehydrogenase 2590 H (313-618) U/L C-Reactive Protein 4.6 H (<1.0) mg/dL Microbiology - Last 24 Hours (Table) 03/01/21 14:14 Blood Culture - Preliminary Blood No Growth after 24 hours 03/01/21 14:14 Blood Culture - Preliminary Blood No Growth after 24 hours Assessment and Plan Plan: Assessment: 1 Acute COVID-19 related pneumonia with diffuse but the pulmonary infiltrates/groundglass changes. Patient started getting symptoms approximately 5 days ago and the patient was diagnosed having COVID-19 infection on 03/01/2021 and a diagnosis was established at [facility]. He is quite hypoxic and he presented with significant shortness of breath and hypoxemia the time of admission and currently is on high flow oxygen 60 L with an FiO2 of 90% and the patient is also utilizing 100% on a beta facemasks. Transferred to the intensive care unit on 03/02/2021 and received a dose of Tocilizumab on 03/02/2021 2 Acute hypoxic respiratory failure secondary to above 3 elevated inflammatory markers secondary to COVID-19 related infection/pneumonia 4 COPD 5 acute kidney injury, improving 6 hypertension Plan: Continue Airvo and NRB facemask to keep O2 sat saturation at 89-90% or above Today's chest x-ray has been reviewed showing stable findings of bilateral infiltrates Work of breathing is easier today Status post Tocilizumab Decadron 6 mg twice daily Laboratory markers and d-dimer were noted, and dose Lovenox Supplemental nutrition in the form of Ensure, and diet as tolerated We'll continue close monitoring in intensive care unit I performed a history & physical examination of the patient and discussed their management with my nurse practitioner, Carola Bourgeois. I reviewed the nurse practitioner's note and agree with the documented findings and plan of care. Lung sounds are positive for diminished breath sounds. The findings and the impression was discussed with the patient. I attest to the documentation by the nurse practitioner. Time with Patient: Greater than 30
[2021-03-03 08:41] LABS: Basophils % (A) 1 %; Eosinophils % (A) 0 %; HCT 45.5 % (39.0-53.0); HGB 15.2 gm/dL (13.0-17.5); Lymphocytes # (A) 0.3 k/uL (1.0-4.8); Lymphocytes % (A) 8 %; MCH 30.5 pg (25.0-35.0); MCHC 33.5 g/dL (31.0-37.0); Mean Platelet Volume 8.7; Monocytes # (A) 0.3 k/uL (0-1.0); Monocytes % (A) 7 %; Neutrophils # (A) 3.6 k/uL (1.3-7.7); Neutrophils % (A) 83 %; Platelet Count 127 k/uL (150-450); WBC 4.3 k/uL (3.8-10.6)
[2021-03-03] MEDS: DEXAMETHASONE SOD PHOSPHATE 10 MG/ML 1 ML VIAL IV SCH ×2 (08:47→22:25)
[2021-03-03] MEDS: ENOXAPARIN 40 MG/0.4 ML SYRINGE SQ SCH (08:47)
[2021-03-03] MEDS: FAMOTIDINE 20 MG TAB PO SCH ×2 (08:47→21:00)
[2021-03-03] MEDS: CHOLECALCIFEROL 25 MCG (1000 IU) TABLET PO SCH (08:48)
[2021-03-03] MEDS: ZINC SULFATE 220 MG CAP PO SCH (08:48)
[2021-03-03] MEDS: ASCORBIC ACID 500 MG TAB PO SCH (08:48)
[2021-03-03 08:53] LABS: ALT 29 U/L (4-49); AST 49 U/L (17-59); African American GFR (CKD) >90 (>60 ml/min/1.73 sqM); Albumin 3.4 g/dL (3.5-5.0); Alkaline Phosphatase 78 U/L (38-126); Anion Gap 8 mmol/L; Blood Urea Nitrogen 28 mg/dL (9-20); Calcium 8.2 mg/dL (8.4-10.2); Carbon Dioxide 26 mmol/L (22-30); Chloride 107 mmol/L (98-107); Glucose 171 mg/dL (74-99); Magnesium 2.3 mg/dL (1.6-2.3); Non-African American GFR(CKD) >90 (>60 ml/min/1.73 sqM); Sodium 141 mmol/L (137-145); Total Bilirubin 0.6 mg/dL (0.2-1.3); Total Protein 6.2 g/dL (6.3-8.2)
[2021-03-03 11:43] LABS: Glucose,Whole Blood 161 mg/dL (75-99)
[2021-03-03] MEDS: amLODIPine 10 MG TAB PO SCH (21:00)
--- NOTE | 2021-03-03 22:39 | P.PN ---
Subjective Progress Note Date: 03/02/21 Principal diagnosis: Acute hypoxic respiratory failure secondary to COVID-19 pneumonia Patient is a 55-year-old male with a known history of hypertension and previous history of smoking presents to ER due to worsening shortness of breath since Saturday. Patient states that he flew from [place] about 3 days ago and since then he has been having fever exertional dyspnea and cough and shortness of breath which has been worsening since then. Patient was seen at outpatient [facility] and was diagnosed with COVID-19. Patient was found to be hypoxic and was having exertional dyspnea and sent to ER. Pulse ox was in the 70s as reported. Patient was dyspneic on on admission and was placed on 100% nonrebreather at 15 L oxygen and FiO2 90%. Her oxygen saturations went up to 88 to 90%. On admission blood pressure was 151/88 respiratory rate 30 heart rate 129 and pulse ox 88% on 15 L oxygen via nonrebreather. Chest x-ray showed interval development of interstitial perihilar and basilar infiltrates compatible with COVID-19 pneumonia. CTA chest showed no evidence of PE. Multifocal and confluent groundglass opacities with lower lung organizing consolidation bilaterally consistent with COVID-19 infection EKG showed sinus tachycardia 03/02/2021 Patient is currently resting in the bed 100% nonrebreather with 90% FiO2. Patient has been afebrile. Tachycardic and tachypneic and appears to use accessory muscles. Patient is being transferred to intensive care unit. Lab oratory data showed WBC 4.2 hemoglobin 16.6 and platelets 168 D-dimer 0.97 Sodium 138 potassium 4.5 chloride 106 BUN 26 creatinine 0.92 calcium 8.3 ferritin two 293.6 CRP trending down to 8.9 and procalcitonin level was 0.4 Pulmonary is on board. Current medications reviewed. Objective - Vital Signs Vital signs: Vital Signs Temp 99.1 F 03/02/21 12:12 Pulse 111 H 03/02/21 12:12 Resp 40 H 03/02/21 12:12 BP 146/97 03/02/21 12:12 Pulse Ox 85 L 03/02/21 12:12 Intake & Output 03/01/21 03/02/21 03/02/21 18:59 06:59 18:59 Intake Total 240 Output Total 500 Balance -500 240 Weight 99.79 kg 97 kg 98.5 kg Intake: Oral 240 Output: Urine 500 Other: Voiding Method Urinal Urinal - Exam PHYSICAL EXAMINATION: Patient is lying in the bed comfortably, appears to be in mild distress, awake alert and oriented.. HEENT: Normocephalic. Neck is supple. Pupils reactive. Nostrils clear. Oral cavity is moist. Ears reveal no drainage. Neck reveals no JVD, carotid bruits, or thyromegaly. CHEST EXAMINATION: Trachea is central. Symmetrical expansion. Bilateral coarse breath sounds. No wheezing or rhonchi.. CARDIAC: Normal S1, S2 with no gallops. No murmurs ABDOMEN: Soft. Bowel sounds normal. No organomegaly. No abdominal bruits. Extremities: reveal no edema. No clubbing or cyanosis Neurologically awake, alert, oriented x3 with well-coordinated movements. No focal deficits noted Skin: No rash or skin lesions. Psychiatric: Coperative. Nonsuicidal Musculoskeletal: No joint swelling or deformity. Normal range of motion. - Labs CBC & Chem 7: 03/03/21 07:59 03/03/21 07:59 Labs: Abnormal Lab Results - Last 24 Hours (Table) 03/01/21 03/01/21 03/01/21 Range/Units 13:48 13:48 13:48 RBC 6.03 H (4.30-5.90) m/uL Hgb 18.9 H (13.0-17.5) gm/dL Hct 54.7 H (39.0-53.0) % Lymphocytes # 0.5 L (1.0-4.8) k/uL APTT 21.6 L (22.0-30.0) sec D-Dimer 1.11 H (<0.60) mg/L FEU BUN (9-20) mg/dL Creatinine (0.66-1.25) mg/dL Glucose (74-99) mg/dL Plasma Lactic Acid Kavon 3.1 H* (0.7-2.0) mmol/L Calcium (8.4-10.2) mg/dL Ferritin (22.0-322.0) ng/mL Lactate Dehydrogenase (313-618) U/L C-Reactive Protein (<1.0) mg/dL Procalcitonin (0.02-0.09) ng/mL 0503/01/21 03/01/21 Range/Units 15:51 18:21 18:21 RBC (4.30-5.90) m/uL Hgb (13.0-17.5) gm/dL Hct (39.0-53.0) % Lymphocytes # (1.0-4.8) k/uL APTT (22.0-30.0) sec D-Dimer (<0.60) mg/L FEU BUN 34 H (9-20) mg/dL Creatinine 1.42 H (0.66-1.25) mg/dL Glucose 168 H (74-99) mg/dL Plasma Lactic Acid Kavon (0.7-2.0) mmol/L Calcium 8.1 L (8.4-10.2) mg/dL Ferritin (22.0-322.0) ng/mL Lactate Dehydrogenase 2539 H (313-618) U/L C-Reactive Protein 15.4 H (<1.0) mg/dL Procalcitonin 0.40 H (0.02-0.09) ng/mL 03/02/21 03/02/21 03/02/21 Range/Units 06:58 06:58 06:58 RBC (4.30-5.90) m/uL Hgb (13.0-17.5) gm/dL Hct (39.0-53.0) % Lymphocytes # 0.4 L (1.0-4.8) k/uL APTT (22.0-30.0) sec D-Dimer 0.97 H (<0.60) mg/L FEU BUN 26 H (9-20) mg/dL Creatinine (0.66-1.25) mg/dL Glucose 191 H (74-99) mg/dL Plasma Lactic Acid Kavon (0.7-2.0) mmol/L Calcium 8.3 L (8.4-10.2) mg/dL Ferritin 2293.6 H (22.0-322.0) ng/mL Lactate Dehydrogenase 2581 H (313-618) U/L C-Reactive Protein 8.9 H (<1.0) mg/dL Procalcitonin (0.02-0.09) ng/mL Assessment and Plan Assessment: Acute hypoxic respiratory failure secondary to COVID-19 pneumonia Acute COVID-19 pneumonia with multifocal groundglass opacities with lower lung organizing consolidation. Elevated D-dimer level with no evidence of PE on CTA chest Lactic acidosis secondary to hypoxia improved now Leukopenia Acute kidney injury with creatinine 1.42 Elevated inflammatory markers Hypertension DVT prophylaxis Lovenox. Plan: Patient will be continued on oxygen supplementation at 15 L via nonrebreather. Patient was started on dexamethasone 6 mg daily--> BID, Lovenox 40 mg subcu daily and breathing treatments will be started. Patient was given a dose of Tocilizumab on 03/02/2021 Due to worsening respiratory status patient is being transferred to MICU. Continue with multivitamins and follow-up closely. Pulmonary will be consulted and further recommendations based on clinical course. Prognosis guarded at this time. Time with Patient: Greater than 30
[2021-03-03 23:17] LABS: Glucose,Whole Blood 143 mg/dL (75-99)
[2021-03-04 03:56] LABS: Basophils % (A) 1 %; Eosinophils % (A) 1 %; HCT 47.8 % (39.0-53.0); HGB 16.4 gm/dL (13.0-17.5); Lymphocytes # (A) 0.4 k/uL (1.0-4.8); Lymphocytes % (A) 6 %; MCH 31.1 pg (25.0-35.0); MCHC 34.4 g/dL (31.0-37.0); MCV 90.5 fL (80.0-100.0); Mean Platelet Volume 7.4; Monocytes # (A) 0.4 k/uL (0-1.0); Monocytes % (A) 7 %; Neutrophils % (A) 84 %; Platelet Count 231 k/uL (150-450); RBC 5.28 m/uL (4.30-5.90); RDW 13.7 % (11.5-15.5); WBC 5.9 k/uL (3.8-10.6)
[2021-03-04 04:07] LABS: African American GFR (CKD) >90 (>60 ml/min/1.73 sqM); Anion Gap 7 mmol/L; Blood Urea Nitrogen 26 mg/dL (9-20); Calcium 8.4 mg/dL (8.4-10.2); Carbon Dioxide 26 mmol/L (22-30); Chloride 106 mmol/L (98-107); Glucose 201 mg/dL (74-99); Non-African American GFR(CKD) >90 (>60 ml/min/1.73 sqM); Sodium 139 mmol/L (137-145)
[2021-03-04 04:21] LABS: LDH 2574 U/L (313-618)
[2021-03-04 04:49] LABS: C Reactive Protein 2.5 mg/dL (<1.0)
[2021-03-04] MEDS: SODIUM CHLORIDE 0.9% 1,000 ML IV SCH (04:50)
[2021-03-04 06:45] LABS: Glucose,Whole Blood 176 mg/dL (75-99)
[2021-03-04] MEDS: ALBUTEROL HFA INHALER INHALATION PRN ×2 (07:57→16:23)
--- NOTE | 2021-03-04 08:16 | XR ---
EXAMINATION TYPE: XR chest 1V portable DATE OF EXAM: 03/04/2021 COMPARISON: 03/03/2021 INDICATION: Covid TECHNIQUE: Single frontal view of the chest is obtained. FINDINGS: The heart size is mildly prominent. The pulmonary vasculature is normal. Diffuse mild increased lung markings are present bilaterally. This may have mildly improved over the interval. IMPRESSION: 1. Diffuse mild nonspecific infiltrate can be compatible with atypical pneumonia.
--- NOTE | 2021-03-04 09:05 | P.PN ---
Subjective Progress Note Date: 03/04/21 55-year-old male patient, diagnosed having COVID-19 infection, as the patient started getting symptomatic approximately 5 days ago. He started having some fevers initially and following that he started having increased cough and shortness of breath and for that reason he came into the hospital. He was diagnosed having COVID-19 pneumonia. In the emergency department, the patient was hypoxic with pulse ox of 70% and he was short of breath. He was placed on 100% nonrebreather facemask and his pulse ox was brought up to 90%. He was hemodynamically stable. His chest x-ray showed bilateral interstitial pulmonary infiltrates most on the lower lobes although difficulties are rather diffuse. His blood work at a time of admission showed normal white cell count of 4.2 with a lymphopenia. His d-dimer is at 1.1, he had an acute kidney injury with a creatinine of 1.4 which improvement in the creatinine is down to 0.9, LDH is significantly elevated at 2539, with a CRP level of 15.4 and appropriate acetone level of 0.4. Coagulation profile is within normal limits. Blood sugar was 168. He also underwent a CT angiogram of the chest that showed no evidence of any pulmonary embolism. There was found to have emphysema and a background in addition to bilateral groundglass pulmonary infiltrates scattered throughout the lung hirsch bilaterally both in the upper and lower lobes. Some minimal areas of consolidation in the lung bases. The rest is essentially consistent with groundglass pulmonary infiltrates. No mediastinal lymphadenopathy. No pulmonary embolism. 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 He was in [place] on his last trip, he started getting symptomatic approximately 5 days ago. He was in [place] and [place] the week prior. It, the patient's oxidation got worse and the patient was placed on high flow oxygen and currently is on 60 L of oxygen by nasal cannula with a 90% FiO2 and a nonrebreather facemask. He is currently on Decadron 6 mg by mouth on a daily basis and the patient is also on Lovenox 40 mg subcu daily. Comorbid conditions include COPD and hypertension. 70 was quite dehydrated as the patient was not taken oral intake and he was quite intravascularly depleted with an acute kidney injury. On 03/03/2021 patient seen in follow-up in the intensive care unit, he is resti ng in bed on his left side, he is currently on Airvo 60 L and FiO2 of 90% and 100% nonrebreather mask and his pulse ox is 90-95%. He has 0.9 normal saline at 75 ML per hour, no other drips, he status post Tocilizumab 720 mg IV infusion yesterday on 03/02/2021. He is on Decadron 6 mg twice daily, she is on prophylactic dose of Lovenox, CTA chest showed no evidence of pulmonary embolism. Today's d-dimer is 1.16, LDH is 2590, and CRP is 4.6. Clinically patient states he is breathing easier, and she doesn't desaturate as low with repositioning, he has been positioning self in bed, and self proning, tolerating activity well, no nausea vomiting or diarrhea, and today she states she's actually feeling hungry. Today's chest x-ray also bilateral multifocal and confluent opacities consistent with COVID-19 infection stable in appearance compared to days ago. 03/04/2021, the patient is in the intensive care unit. He remains on a low 60 L with an FiO2 of 90% and the 100% on a beta facemasks. Chest x-ray shows some limited improvement in infiltrates on the right. Infiltrates on the left arm essentially unchanged. He is switching body positions. He is able to go pruning. His pulse ox is currently somewhere between 89-91%. He remains on Decadron. He is also on Lovenox. Inflammatory markers include a d-dimer of 1.27. LDH is still elevated at 2574 and his CRP is down to 2.5. Electrodes are normal. Awake. Alert. Communicating. Taken oral intake. No nausea. No emesis. No altered mentation. Weak. Feels fatigued. Afebrile. No diarrhea. During no treatment for anxiety at this point in time. No altered mentation. No signs of any bleeding. Chest x-ray was noted. He is on Decadron 6 mg IV every 12 hours. The Objective - Vital Signs Vital signs: Vital Signs Temp 97.5 F L 03/04/21 08:00 Pulse 95 03/04/21 08:00 Resp 16 03/04/21 08:00 BP 116/72 03/04/21 08:00 Pulse Ox 89 L 03/04/21 08:00 Intake & Output 03/03/21 03/04/21 03/04/21 18:59 06:59 18:59 Intake Total 975 825 150 Output Total 870 930 240 Balance 105 -105 -90 Weight 98.1 kg Intake: IV 975 825 150 Sodium Chloride 0.9% 1, 975 825 150 000 ml @ 75 mls/hr IV . [id number] [facility] Rx#:[id number] Output: Urine 870 930 240 Other: Voiding Method Indwelling Catheter Indwelling Catheter - Exam GENERAL EXAM: Alert, , 55-year-old white male, laying on his left side in bed in the intensive care unit, on Airvo at 60 L and FiO2 of 90% and 100% nonrebreather mask, with pulse ox ranging between 90-95%comfortable in no apparent distress. HEAD: Normocephalic/atraumatic. EYES: Normal reaction of pupils, equal size. Conjunctiva pink, sclera white. NOSE: Clear with pink turbinates. THROAT: No erythema or exudates. NECK: No masses, no JVD, no thyroid enlargement, no adenopathy. CHEST: No chest wall deformity. Symmetrical expansion. LUNGS: Equal air entry with diminished breath sounds at the bases, no crackles, no rhonchi no wheezes CVS: Regular rate and rhythm, normal S1 and S2, no gallops, no murmurs, no rubs ABDOMEN: Soft, nontender. No hepatosplenomegaly, normal bowel sounds, no guarding or rigidity. EXTREMITIES: No clubbing, no edema, no cyanosis, 2+ pulses and upper and lower extremities. MUSCULOSKELETAL: Muscle strength and tone normal. SPINE: No scoliosis or deformity SKIN: No rashes CENTRAL NERVOUS SYSTEM: Alert and oriented -3. No focal deficits, tone is normal in all 4 extremities. PSYCHIATRIC: Alert and oriented -3. Appropriate affect. Intact judgment and insight. - Labs CBC & Chem 7: 03/04/21 03:46 03/04/21 03:46 Labs: Abnormal Lab Results - Last 24 Hours (Table) 03/03/21 03/03/21 03/04/21 Range/Units 11:41 23:04 03:46 Lymphocytes # 0.4 L (1.0-4.8) k/uL D-Dimer (<0.60) mg/L FEU BUN (9-20) mg/dL Glucose (74-99) mg/dL POC Glucose (mg/dL) 161 H 143 H (75-99) mg/dL Lactate Dehydrogenase (313-618) U/L C-Reactive Protein (<1.0) mg/dL 03/04/21 03/04/21 03/04/21 Range/Units 03:46 03:46 06:45 Lymphocytes # (1.0-4.8) k/uL D-Dimer 1.27 H (<0.60) mg/L FEU BUN 26 H (9-20) mg/dL Glucose 201 H (74-99) mg/dL POC Glucose (mg/dL) 176 H (75-99) mg/dL Lactate Dehydrogenase 2574 H (313-618) U/L C-Reactive Protein 2.5 H (<1.0) mg/dL Microbiology - Last 24 Hours (Table) 03/01/21 14:14 Blood Culture - Preliminary Blood No Growth after 48 hours 03/01/21 14:14 Blood Culture - Preliminary Blood No Growth after 48 hours Assessment and Plan Plan: 1 Acute COVID-19 related pneumonia with diffuse but the pulmonary infiltrates/groundglass changes. Patient started getting symptoms approximately 5 days ago and the patient was diagnosed having COVID-19 infection on 03/01/2021 and a diagnosis was established at [facility]. He is quite hypoxic and he presented with significant shortness of breath and hypoxemia the time of admission and currently is on high flow oxygen 60 L with an FiO2 of 90% and the patient is also utilizing 100% on a beta facemasks. Transferred to the intensive care unit on 03/02/2021 and received a dose of Tocilizumab on 03/02/2021. On today's evaluation, he is on a high flow oxygen at the same setting of 60 L with an FiO2 of 90% and on and off is using the 100% on a beta facemasks. Clinically is stable and he feels slightly better. No decompensation in his overall re spiratory status. 2 Acute hypoxic respiratory failure secondary to above 3 elevated inflammatory markers secondary to COVID-19 related infection/pneumonia 4 COPD 5 acute kidney injury, improving 6 hypertension Plan: Continue Airvo and NRB facemask to keep O2 sat saturation at 89-90% or above Try to wean off the nonrebreather facemask and keep the patient only on high flow oxygen at the same flow of 60 L Today's chest x-ray has been reviewed showing stable findings of bilateral infiltrates unchanged Work of breathing is easier today Status post Tocilizumab Decadron 6 mg twice daily Laboratory markers and d-dimer were noted, and dose Lovenox Supplemental nutrition in the form of Ensure, and diet as tolerated We'll continue close monitoring in intensive care unit As stated earlier, he is at the high risk of developing respiratory failure requiring intubation mechanical ventilation and for that reason the patient will be kept in ICU and be monitored very closely. crtical care time, >30 min Time with Patient: Greater than 30
[2021-03-04] MEDS: ZINC SULFATE 220 MG CAP PO SCH (10:17)
[2021-03-04] MEDS: DEXAMETHASONE SOD PHOSPHATE 10 MG/ML 1 ML VIAL IV SCH ×2 (10:17→20:21)
[2021-03-04] MEDS: CHOLECALCIFEROL 25 MCG (1000 IU) TABLET PO SCH (10:17)
[2021-03-04] MEDS: ASCORBIC ACID 500 MG TAB PO SCH (10:17)
[2021-03-04] MEDS: ENOXAPARIN 40 MG/0.4 ML SYRINGE SQ SCH (10:18)
[2021-03-04] MEDS: FAMOTIDINE 20 MG TAB PO SCH ×2 (10:18→20:21)
[2021-03-04 11:22] LABS: Glucose,Whole Blood 159 mg/dL (75-99)
[2021-03-04 18:21] LABS: Glucose,Whole Blood 186 mg/dL (75-99)
[2021-03-04] MEDS: amLODIPine 10 MG TAB PO SCH (20:21)
[2021-03-04 20:46] LABS: Glucose,Whole Blood 277 mg/dL (75-99)
--- NOTE | 2021-03-04 22:39 | P.PN ---
Subjective Progress Note Date: 03/03/21 Principal diagnosis: Acute hypoxic respiratory failure secondary to COVID-19 pneumonia Patient is a 55-year-old male with a known history of hypertension and previous history of smoking presents to ER due to worsening shortness of breath since Saturday. Patient states that he flew from [place] about 3 days ago and since then he has been having fever exertional dyspnea and cough and shortness of breath which has been worsening since then. Patient was seen at outpatient clinic [facility] [place] and was diagnosed with COVID-19. Patient was found to be hypoxic and was having exertional dyspnea and sent to ER. Pulse ox was in the 70s as reported. Patient was dyspneic on on admission and was placed on 100% nonrebreather at 15 L oxygen and FiO2 90%. Her oxygen saturations went up to 88 to 90%. On admission blood pressure was 151/88 respiratory rate 30 heart rate 129 and pulse ox 88% on 15 L oxygen via nonrebreather. Chest x-ray showed interval development of interstitial perihilar and basilar infiltrates compatible with COVID-19 pneumonia. CTA chest showed no evidence of PE. Multifocal and confluent groundglass opacities with lower lung organizing consolidation bilaterally consistent with COVID-19 infection EKG showed sinus tachycardia 03/02/2021 Patient is currently resting in the bed 100% nonrebreather with 90% FiO2. Patient has been afebrile. Tachycardic and tachypneic and appears to use accessory muscles. Patient is being transferred to intensive care unit. Lab oratory data showed WBC 4.2 hemoglobin 16.6 and platelets 168 D-dimer 0.97 Sodium 138 potassium 4.5 chloride 106 BUN 26 creatinine 0.92 calcium 8.3 ferritin two 293.6 CRP trending down to 8.9 and procalcitonin level was 0.4 Pulmonary is on board. 03/03/2021 Patient is currently in MICU. Awake alert and oriented. On Airvo 60 L with FiO2 90% and is saturating at 90%. Patient is being cannula dexamethasone 6 mg twice daily and Lovenox. Patient received 1 dose of Tocilizumab on 03/02/2021. Laboratory data showed BUN 28 creatinine 0.76, D-dimer 1.16, CRP 4.6 and LDH 2.90. Patient is being monitored in the ICU. Pulmonary is on board. Denied any complaints of chest pain. Tolerating oral diet. No nausea vomiting or abdominal pain or diarrhea. Current medications reviewed.On Objective - Vital Signs Vital signs: Vital Signs Temp 98.6 F 03/03/21 20:00 Pulse 105 H 03/03/21 20:00 Resp 28 H 03/03/21 20:00 BP 125/82 03/03/21 20:00 Pulse Ox 89 L 03/03/21 20:00 Intake & Output 03/03/21 03/03/21 03/04/21 06:59 18:59 06:59 Intake Total 1900 975 75 Output Total 850 870 100 Balance 1050 105 -25 Weight 96.1 kg Intake: IV 900 975 75 Sodium Chloride 0.9% 1, 900 975 75 000 ml @ 75 mls/hr IV . [id number] [facility] Rx#:[id number] Oral 1000 Output: Urine 850 870 100 Other: Voiding Method Indwelling Catheter Indwelling Catheter Indwelling Catheter - Exam PHYSICAL EXAMINATION: Patient is lying in the bed comfortably, appears to be in mild distress, awake alert and oriented.. HEENT: Normocephalic. Neck is supple. Pupils reactive. Nostrils clear. Oral cavity is moist. Ears reveal no drainage. Neck reveals no JVD, carotid bruits, or thyromegaly. CHEST EXAMINATION: Trachea is central. Symmetrical expansion. Bilateral coarse breath sounds. No wheezing or rhonchi.. CARDIAC: Normal S1, S2 with no gallops. No murmurs ABDOMEN: Soft. Bowel sounds normal. No organomegaly. No abdominal bruits. Extremities: reveal no edema. No clubbing or cyanosis Neurologically awake, alert, oriented x3 with well-coordinated movements. No focal deficits noted Skin: No rash or skin lesions. Psychiatric: Coperative. Nonsuicidal Musculoskeletal: No joint swelling or deformity. Normal range of motion. - Labs CBC & Chem 7: 03/04/21 03:46 03/04/21 03:46 Labs: Abnormal Lab Results - Last 24 Hours (Table) 03/03/21 03/03/21 03/03/21 Range/Units 04:03 04:03 07:59 Plt Count 127 L (150-450) k/uL Lymphocytes # 0.3 L (1.0-4.8) k/uL D-Dimer 1.16 H (<0.60) mg/L FEU BUN (9-20) mg/dL Glucose (74-99) mg/dL POC Glucose (mg/dL) (75-99) mg/dL Calcium (8.4-10.2) mg/dL Lactate Dehydrogenase 2590 H (313-618) U/L C-Reactive Protein 4.6 H (<1.0) mg/dL Total Protein (6.3-8.2) g/dL Albumin (3.5-5.0) g/dL 03/03/21 03/03/21 Range/Units 07:59 11:41 Plt Count (150-450) k/uL Lymphocytes # (1.0-4.8) k/uL D-Dimer (<0.60) mg/L FEU BUN 28 H (9-20) mg/dL Glucose 171 H (74-99) mg/dL POC Glucose (mg/dL) 161 H (75-99) mg/dL Calcium 8.2 L (8.4-10.2) mg/dL Lactate Dehydrogenase (313-618) U/L C-Reactive Protein (<1.0) mg/dL Total Protein 6.2 L (6.3-8.2) g/dL Albumin 3.4 L (3.5-5.0) g/dL Microbiology - Last 24 Hours (Table) 03/01/21 14:14 Blood Culture - Preliminary Blood No Growth after 48 hours 03/01/21 14:14 Blood Culture - Preliminary Blood No Growth after 48 hours Assessment and Plan Assessment: Acute hypoxic respiratory failure secondary to COVID-19 pneumonia. on Airvo 40L Acute COVID-19 pneumonia with multifocal groundglass opacities with lower lung organizing consolidation. Elevated D-dimer level with no evidence of PE on CTA chest Lactic acidosis secondary to hypoxia improved now Leukopenia Acute kidney injury with creatinine 1.42 Elevated inflammatory markers Hypertension DVT prophylaxis Lovenox. Plan: Patient will be continued on oxygen supplementation at 15 L via nonrebreather. Patient was started on dexamethasone 6 mg daily--> BID, Lovenox 40 mg subcu daily and breathing treatments will be started. Patient was given a dose of Tocilizumab on 03/02/2021 Continue to monitor the patient in MICU. Continue with multivitamins and follow-up closely. Pulmonary will be consulted and further recommendations based on clinical course. Prognosis guarded at this time. Time with Patient: Greater than 30
[2021-03-05 04:38] LABS: C Reactive Protein 1.9 mg/dL (<1.0)
[2021-03-05] MEDS: INSULIN ASPART (NovoLOG) 100 UNIT/ML VIAL SQ SCH ×5 (05:38→22:26)
[2021-03-05] MEDS: SODIUM CHLORIDE 0.9% 1,000 ML IV SCH ×2 (05:40→12:53)
[2021-03-05 07:02] LABS: Glucose,Whole Blood 182 mg/dL (75-99)
--- NOTE | 2021-03-05 07:51 | XR ---
EXAMINATION TYPE: XR chest 1V portable DATE OF EXAM: 03/05/2021 COMPARISON: 03/04/2021 INDICATION: Covid TECHNIQUE: Single frontal view of the chest is obtained. FINDINGS: The heart size is mildly prominent. The pulmonary vasculature is normal. Scattered bilaterally increased lung markings. Findings can be compatible with atypical pneumonia IMPRESSION: 1. Diffuse scattered increased lung markings can be compatible with atypical pneumonia. 2. Mild cardiomegaly
[2021-03-05] MEDS: ALBUTEROL HFA INHALER INHALATION PRN (08:03)
--- NOTE | 2021-03-05 08:29 | P.PN ---
Subjective Progress Note Date: 03/05/21 55-year-old male patient, diagnosed having COVID-19 infection, as the patient started getting symptomatic approximately 5 days ago. He started having some fevers initially and following that he started having increased cough and shortness of breath and for that reason he came into the hospital. He was diagnosed having COVID-19 pneumonia. In the emergency department, the patient was hypoxic with pulse ox of 70% and he was short of breath. He was placed on 100% nonrebreather facemask and his pulse ox was brought up to 90%. He was hemodynamically stable. His chest x-ray showed bilateral interstitial pulmonary infiltrates most on the lower lobes although difficulties are rather diffuse. His blood work at a time of admission showed normal white cell count of 4.2 with a lymphopenia. His d-dimer is at 1.1, he had an acute kidney injury with a creatinine of 1.4 which improvement in the creatinine is down to 0.9, LDH is significantly elevated at 2539, with a CRP level of 15.4 and appropriate acetone level of 0.4. Coagulation profile is within normal limits. Blood sugar was 168. He also underwent a CT angiogram of the chest that showed no evidence of any pulmonary embolism. There was found to have emphysema and a background in addition to bilateral groundglass pulmonary infiltrates scattered throughout the lung hirsch bilaterally both in the upper and lower lobes. Some minimal areas of consolidation in the lung bases. The rest is essentially consistent with groundglass pulmonary infiltrates. No mediastinal lymphadenopathy. No pulmonary embolism. 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 He was in [place] on his last trip, he started getting symptomatic approximately 5 days ago. He was in [place] and [place] the week prior. It, the patient's oxidation got worse and the patient was placed on high flow oxygen and currently is on 60 L of oxygen by nasal cannula with a 90% FiO2 and a nonrebreather facemask. He is currently on Decadron 6 mg by mouth on a daily basis and the patient is also on Lovenox 40 mg subcu daily. Comorbid conditions include COPD and hypertension. 70 was quite dehydrated as the patient was not taken oral intake and he was quite intravascularly depleted with an acute kidney injury. On 03/03/2021 patient seen in follow-up in the intensive care unit, he is resti ng in bed on his left side, he is currently on Airvo 60 L and FiO2 of 90% and 100% nonrebreather mask and his pulse ox is 90-95%. He has 0.9 normal saline at 75 ML per hour, no other drips, he status post Tocilizumab 720 mg IV infusion yesterday on 03/02/2021. He is on Decadron 6 mg twice daily, she is on prophylactic dose of Lovenox, CTA chest showed no evidence of pulmonary embolism. Today's d-dimer is 1.16, LDH is 2590, and CRP is 4.6. Clinically patient states he is breathing easier, and she doesn't desaturate as low with repositioning, he has been positioning self in bed, and self proning, tolerating activity well, no nausea vomiting or diarrhea, and today she states she's actually feeling hungry. Today's chest x-ray also bilateral multifocal and confluent opacities consistent with COVID-19 infection stable in appearance compared to days ago. 03/04/2021, the patient is in the intensive care unit. He remains on a low 60 L with an FiO2 of 90% and the 100% on a beta facemasks. Chest x-ray shows some limited improvement in infiltrates on the right. Infiltrates on the left arm essentially unchanged. He is switching body positions. He is able to go pruning. His pulse ox is currently somewhere between 89-91%. He remains on Decadron. He is also on Lovenox. Inflammatory markers include a d-dimer of 1.27. LDH is still elevated at 2574 and his CRP is down to 2.5. Electrodes are normal. Awake. Alert. Communicating. Taken oral intake. No nausea. No emesis. No altered mentation. Weak. Feels fatigued. Afebrile. No diarrhea. During no treatment for anxiety at this point in time. No altered mentation. No signs of any bleeding. Chest x-ray was noted. He is on Decadron 6 mg IV every 12 hours. 9 2020, the patient remains in the intensive care unit. There is a very borderline case of severe COVID-19 related pneumonia with diffuse bilateral pulmonary infiltrates and hypoxic respiratory failure was condition has been decompensated while on the floor and the patient got transferred to the intensive care unit for further monitoring. The patient is currently on high flow oxygen at 60 L with an FiO2 of 90% and he is also utilizing 100% nonrebreat her facemask. His current pulse ox is 90%. Chest x-ray showing diffuse bilateral pulmonary infiltrates consistent with pneumonia. The patient is short of breath. He is very fatigued and tired. He is awake and alert. He is spending most of the time in bed. He assumes different positions of the body and he is pruning himself on several hours during the day. He is able to tolerate oral intake. His oral intake is diminished yet it seems to be adequate at this point in time. No nausea. No vomiting. No diarrhea. No abdominal pain. No chest pain. No fever. Blood work for today is still pending. I have a d-dimer of 2.88. Meanwhile, the patient remains on Decadron at a dose of 60 mg IV push every 12 hours. The patient also is on Lovenox 40 mg subcu for DVT prophylaxis. No other significant events overnight. The patient reports that his condition is stable. He is receiving IV fluids with normal saline at the rate of 75 mL an hour. His overall fluid balance over the past 24 hours has been 0 balance. Objective - Vital Signs Vital signs: Vital Signs Temp 98.5 F 03/05/21 04:00 Pulse 85 03/05/21 06:00 Resp 23 03/05/21 06:00 BP 137/94 03/05/21 06:00 Pulse Ox 86 L 03/05/21 06:00 Intake & Output 03/04/21 03/05/21 03/05/21 18:59 06:59 18:59 Intake Total 600 900 Output Total 850 1160 Balance -250 -260 Intake: IV 600 900 Sodium Chloride 0.9% 1, 600 900 000 ml @ 75 mls/hr IV . [id number] [facility] Rx#:[id number] Output: Urine 850 1160 Other: Voiding Method Indwelling Catheter Indwelling Catheter - Exam GENERAL EXAM: Alert, , 55-year-old white male, laying on his left side in bed in the intensive care unit, on Airvo at 60 L and FiO2 of 90% and 100% nonrebreather mask, with pulse ox ranging between 90-95%comfortable in no apparent distress. HEAD: Normocephalic/atraumatic. EYES: Normal reaction of pupils, equal size. Conjunctiva pink, sclera white. NOSE: Clear with pink turbinates. THROAT: No erythema or exudates. NECK: No masses, no JVD, no thyroid enlargement, no adenopathy. CHEST: No chest wall deformity. Symmetrical expansion. LUNGS: Equal air entry with diminished breath sounds at the bases, no crackles, no rhonchi no wheezes CVS: Regular rate and rhythm, normal S1 and S2, no gallops, no murmurs, no rubs ABDOMEN: Soft, nontender. No hepatosplenomegaly, normal bowel sounds, no guarding or rigidity. EXTREMITIES: No clubbing, no edema, no cyanosis, 2+ pulses and upper and lower extremities. MUSCULOSKELETAL: Muscle strength and tone normal. SPINE: No scoliosis or deformity SKIN: No rashes CENTRAL NERVOUS SYSTEM: Alert and oriented -3. No focal deficits, tone is normal in all 4 extremities. PSYCHIATRIC: Alert and oriented -3. Appropriate affect. Intact judgment and insight. - Labs CBC & Chem 7: 03/04/21 03:46 03/04/21 03:46 Labs: Abnormal Lab Results - Last 24 Hours (Table) 03/04/21 03/04/21 03/04/21 Range/Units 11:21 18:20 20:44 D-Dimer (<0.60) mg/L FEU POC Glucose (mg/dL) 159 H 186 H 277 H (75-99) mg/dL Lactate Dehydrogenase (313-618) U/L C-Reactive Protein (<1.0) mg/dL 03/05/21 03/05/21 03/05/21 Range/Units 03:59 03:59 07:00 D-Dimer 2.88 H (<0.60) mg/L FEU POC Glucose (mg/dL) 182 H (75-99) mg/dL Lactate Dehydrogenase 2465 H (313-618) U/L C-Reactive Protein 1.9 H (<1.0) mg/dL Microbiology - Last 24 Hours (Table) 03/01/21 14:14 Blood Culture - Preliminary Blood No Growth after 72 hours 03/01/21 14:14 Blood Culture - Preliminary Blood No Growth after 72 hours Assessment and Plan Plan: 1 Acute COVID-19 related pneumonia with diffuse but the pulmonary infiltrates/groundglass changes. Patient started getting symptoms approximately 5 days ago and the patient was diagnosed having COVID-19 infection on 03/01/2021 and a diagnosis was established at [facility]. He is quite hypoxic and he presented with significant shortness of breath and hypoxemia the time of admission and currently is on high flow oxygen 60 L with an FiO2 of 90% and the patient is also utilizing 100% on a beta facemasks. Transferred to the intensive care unit on 03/02/2021 and received a dose of Tocilizumab on 03/02/2021. For now, he is on a high flow oxygen at the same setting of 60 L with an FiO2 of 90% and on and off is using the 100% on a beta facemasks. His condition has remained stable over the past 24-48 hours without any further interval decompensation. Chest x-ray still showing diffuse bilateral pulmonary infiltrates consistent with COVID-19 pneumonia. Oxygenation remains borderline. He remains and he is considered to be a high-risk of requiring intubation mechanical ventilation specially if there is any further decompensation worsening of his history status. 2 Acute hypoxic respiratory failure secondary to above 3 elevated inflammatory markers secondary to COVID-19 related infe ction/pneumonia 4 COPD 5 acute kidney injury, improving 6 hypertension Plan: Continue Airvo and NRB facemask to keep O2 sat saturation at 89-90% or above Try to wean off the nonrebreather facemask and keep the patient only on high flow oxygen at the same flow of 60 L Today's chest x-ray has been reviewed showing stable findings of bilateral infiltrates unchanged is done with diffuse bilateral pulmonary infiltrates and COVID-19 related pneumonia which remains essentially unchanged and stable. prone positioning for several hours during the day Status post Tocilizumab Decadron 6 mg twice daily [place] IV to milligrams subcu daily Laboratory markers and d-dimer were note Supplemental nutrition in the form of Ensure, and diet as tolerated We'll continue close monitoring in intensive care unit He remains at a high risk of developing respiratory failure requiring intubation mechanical ventilation and for that reason the patient will be kept in ICU and be monitored very closely. crtical care time, >30 min Time with Patient: Greater than 30
[2021-03-05] MEDS: FAMOTIDINE 20 MG TAB PO SCH ×2 (09:46→22:26)
[2021-03-05] MEDS: ASCORBIC ACID 500 MG TAB PO SCH (09:46)
[2021-03-05] MEDS: ENOXAPARIN 40 MG/0.4 ML SYRINGE SQ SCH (09:49)
[2021-03-05] MEDS: CHOLECALCIFEROL 25 MCG (1000 IU) TABLET PO SCH (09:49)
[2021-03-05] MEDS: DEXAMETHASONE SOD PHOSPHATE 10 MG/ML 1 ML VIAL IV SCH ×2 (09:49→22:25)
[2021-03-05] MEDS: ZINC SULFATE 220 MG CAP PO SCH (09:49)
[2021-03-05 12:49] LABS: Glucose,Whole Blood 142 mg/dL (75-99)
[2021-03-05 16:52] LABS: Glucose,Whole Blood 185 mg/dL (75-99)
[2021-03-05 20:54] LABS: Glucose,Whole Blood 157 mg/dL (75-99)
[2021-03-05] MEDS: amLODIPine 10 MG TAB PO SCH (22:25)
--- NOTE | 2021-03-06 00:59 | P.PN ---
Subjective Progress Note Date: 03/04/21 Principal diagnosis: Acute hypoxic respiratory failure secondary to COVID-19 pneumonia Patient is a 55-year-old male with a known history of hypertension and previous history of smoking presents to ER due to worsening shortness of breath since Saturday. Patient states that he flew from [place] about 3 days ago and since then he has been having fever exertional dyspnea and cough and shortness of breath which has been worsening since then. Patient was [facility] [place] and was diagnosed with COVID-19. Patient was found to be hypoxic and was having exertional dyspnea and sent to ER. Pulse ox was in the 70s as reported. Patient was dyspneic on on admission and was placed on 100% nonrebreather at 15 L oxygen and FiO2 90%. Her oxygen saturations went up to 88 to 90%. On admission blood pressure was 151/88 respiratory rate 30 heart rate 129 and pulse ox 88% on 15 L oxygen via nonrebreather. Chest x-ray showed interval development of interstitial perihilar and basilar infiltrates compatible with COVID-19 pneumonia. CTA chest showed no evidence of PE. Multifocal and confluent groundglass opacities with lower lung organizing consolidation bilaterally consistent with COVID-19 infection EKG showed sinus tachycardia 03/02/2021 Patient is currently resting in the bed 100% nonrebreather with 90% FiO2. Patient has been afebrile. Tachycardic and tachypneic and appears to use accessory muscles. Patient is being transferred to intensive care unit. Lab oratory data showed WBC 4.2 hemoglobin 16.6 and platelets 168 D-dimer 0.97 Sodium 138 potassium 4.5 chloride 106 BUN 26 creatinine 0.92 calcium 8.3 ferritin two 293.6 CRP trending down to 8.9 and procalcitonin level was 0.4 Pulmonary is on board. 03/03/2021 Patient is currently in MICU. Awake alert and oriented. On Airvo 60 L with FiO2 90% and is saturating at 90%. Patient is being cannula dexamethasone 6 mg twice daily and Lovenox. Patient received 1 dose of Tocilizumab on 03/02/2021. Laboratory data showed BUN 28 creatinine 0.76, D-dimer 1.16, CRP 4.6 and LDH 2.90. Patient is being monitored in the ICU. Pulmonary is on board. Denied any complaints of chest pain. Tolerating oral diet. No nausea vomiting or abdominal pain or diarrhea. 03/04/2021. Patient is currently in MICU. Requiring 60 L oxygen with FiO2 90%. Patient is getting prone ventilation. Chest x-ray showed diffuse mild nonspecific infiltrate can be compatible with atypical pneumonia. Laboratory pressure WBC 5.9 hemoglobin 16.4 platelets 231 lymphocytes 0.4 D- dimer 1.27 BUN 26 and creatinine 0.77 potassium 5.0 sodium 139 LDH 2574 and CRP 2.5 patient is afebrile. Remains dexamethasone IV 6 mg twice daily and Lovenox 40 mg subcu daily. Also on IV hydration with normal saline at 75 cc/h. Critical care team is on board. Current medications reviewed.On Objective - Vital Signs Vital signs: Vital Signs Temp 97.8 F 03/04/21 16:00 Pulse 82 03/04/21 16:00 Resp 46 H 03/04/21 16:00 BP 137/97 03/04/21 16:00 Pulse Ox 85 L 03/04/21 16:23 Intake & Output 03/03/21 03/04/21 03/04/21 18:59 06:59 18:59 Intake Total 975 825 450 Output Total 870 930 730 Balance 105 -105 -280 Weight 98.1 kg Intake: IV 975 825 450 Sodium Chloride 0.9% 1, 975 825 450 000 ml @ 75 mls/hr IV . [id number] [facility] Rx#:[id number] Output: Urine 870 930 730 Other: Voiding Method Indwelling Catheter Indwelling Catheter Indwelling Catheter - Exam PHYSICAL EXAMINATION: Patient is lying in the bed comfortably, appears to be in mild distress, awake alert and oriented.. HEENT: Normocephalic. Neck is supple. Pupils reactive. Nostrils clear. Oral cavity is moist. Ears reveal no drainage. Neck reveals no JVD, carotid bruits, or thyromegaly. CHEST EXAMINATION: Trachea is central. Symmetrical expansion. Bilateral coarse breath sounds. No wheezing or rhonchi.. CARDIAC: Normal S1, S2 with no gallops. No murmurs ABDOMEN: Soft. Bowel sounds normal. No organomegaly. No abdominal bruits. Extremities: reveal no edema. No clubbing or cyanosis Neurologically awake, alert, oriented x3 with well-coordinated movements. No focal deficits noted Skin: No rash or skin lesions. Psychiatric: Coperative. Nonsuicidal Musculoskeletal: No joint swelling or deformity. Normal range of motion. - Labs CBC & Chem 7: 03/04/21 03:46 03/04/21 03:46 Labs: Abnormal Lab Results - Last 24 Hours (Table) 03/03/21 03/04/21 03/04/21 Range/Units 23:04 03:46 03:46 Lymphocytes # 0.4 L (1.0-4.8) k/uL D-Dimer 1.27 H (<0.60) mg/L FEU BUN (9-20) mg/dL Glucose (74-99) mg/dL POC Glucose (mg/dL) 143 H (75-99) mg/dL Lactate Dehydrogenase (313-618) U/L C-Reactive Protein (<1.0) mg/dL 03/04/21 03/04/21 03/04/21 Range/Units 03:46 06:45 11:21 Lymphocytes # (1.0-4.8) k/uL D-Dimer (<0.60) mg/L FEU BUN 26 H (9-20) mg/dL Glucose 201 H (74-99) mg/dL POC Glucose (mg/dL) 176 H 159 H (75-99) mg/dL Lactate Dehydrogenase 2574 H (313-618) U/L C-Reactive Protein 2.5 H (<1.0) mg/dL Microbiology - Last 24 Hours (Table) 03/01/21 14:14 Blood Culture - Preliminary Blood No Growth after 72 hours 03/01/21 14:14 Blood Culture - Preliminary Blood No Growth after 72 hours Assessment and Plan Assessment: Acute hypoxic respiratory failure secondary to COVID-19 pneumonia. on Airvo 60L fio2 90% Acute COVID-19 pneumonia with multifocal groundglass opacities with lower lung organizing consolidation. Elevated D-dimer level with no evidence of PE on CTA chest Lactic acidosis secondary to hypoxia improved now Leukopenia Acute kidney injury with creatinine 1.42 Elevated inflammatory markers Hypertension DVT prophylaxis Lovenox. Plan: Patient will be continued on oxygen supplementation at 15 L via nonrebreather. Patient was started on dexamethasone 6 mg daily--> BID, Lovenox 40 mg subcu daily and breathing treatments will be started. Patient was given a dose of Tocilizumab on 03/02/2021 Continue to monitor the patient in MICU. Continue with multivitamins and follow-up closely. Pulmonary will be consulted and further recommendations based on clinical course. Prognosis guarded at this time. Time with Patient: Greater than 30
--- NOTE | 2021-03-06 01:03 | P.PN ---
Subjective Progress Note Date: 03/05/21 Principal diagnosis: Acute hypoxic respiratory failure secondary to COVID-19 pneumonia Patient is a 55-year-old male with a known history of hypertension and previous history of smoking presents to ER due to worsening shortness of breath since Saturday. Patient states that he flew from [place] about 3 days ago and since then he has been having fever exertional dyspnea and cough and shortness of breath which has been worsening since then. Patient was seen [place] [facility] [place] and was diagnosed with COVID-19. Patient was found to be hypoxic and was having exertional dyspnea and sent to ER. Pulse ox was in the 70s as reported. Patient was dyspneic on on admission and was placed on 100% nonrebreather at 15 L oxygen and FiO2 90%. Her oxygen saturations went up to 88 to 90%. On admission blood pressure was 151/88 respiratory rate 30 heart rate 129 and pulse ox 88% on 15 L oxygen via nonrebreather. Chest x-ray showed interval development of interstitial perihilar and basilar infiltrates compatible with COVID-19 pneumonia. CTA chest showed no evidence of PE. Multifocal and confluent groundglass opacities with lower lung organizing consolidation bilaterally consistent with COVID-19 infection EKG showed sinus tachycardia 03/02/2021 Patient is currently resting in the bed 100% nonrebreather with 90% FiO2. Patient has been afebrile. Tachycardic and tachypneic and appears to use accessory muscles. Patient is being transferred to intensive care unit. Lab oratory data showed WBC 4.2 hemoglobin 16.6 and platelets 168 D-dimer 0.97 Sodium 138 potassium 4.5 chloride 106 BUN 26 creatinine 0.92 calcium 8.3 ferritin two 293.6 CRP trending down to 8.9 and procalcitonin level was 0.4 Pulmonary is on board. 03/03/2021 Patient is currently in MICU. Awake alert and oriented. On Airvo 60 L with FiO2 90% and is saturating at 90%. Patient is being cannula dexamethasone 6 mg twice daily and Lovenox. Patient received 1 dose of Tocilizumab on 03/02/2021. Laboratory data showed BUN 28 creatinine 0.76, D-dimer 1.16, CRP 4.6 and LDH 2.90. Patient is being monitored in the ICU. Pulmonary is on board. Denied any complaints of chest pain. Tolerating oral diet. No nausea vomiting or abdominal pain or diarrhea. 03/04/2021. Patient is currently in MICU. Requiring 60 L oxygen with FiO2 90%. Patient is getting prone ventilation. Chest x-ray showed diffuse mild nonspecific infiltrate can be compatible with atypical pneumonia. Laboratory pressure WBC 5.9 hemoglobin 16.4 platelets 231 lymphocytes 0.4 D- dimer 1.27 BUN 26 and creatinine 0.77 potassium 5.0 sodium 139 LDH 2574 and CRP 2.5 patient is afebrile. Remains dexamethasone IV 6 mg twice daily and Lovenox 40 mg subcu daily. Also on IV hydration with normal saline at 75 cc/h. Critical care team is on board. 03/05/2021 Patient remains in MICU. Awake and alert. Currently requiring 60 L oxygen with FiO2 90%. Pulse ox around 90% to 89%. Patient has been afebrile. Chest x-ray showed diffuse scattered increased lung markings can be compatible with atypical pneumonia. Mild cardiomegaly. Laboratory data showed D-dimer 2.88, LDH 2465 and CRP 1.9. Blood sugar is controlled. Patient is being continued dexamethasone 6 mg IV twice daily and Lovenox and multivitamins and IV hydration with normal saline at 75 cc/h. Pulmonary is on board. Current medications reviewed.On Objective - Vital Signs Vital signs: Vital Signs Temp 98.1 F 03/05/21 20:00 Pulse 95 03/05/21 20:00 Resp 33 H 03/05/21 20:00 BP 125/77 03/05/21 20:00 Pulse Ox 88 L 03/05/21 23:33 Intake & Output 03/05/21 03/05/21 03/06/21 06:59 18:59 06:59 Intake Total 900 900 150 Output Total 1160 1125 245 Balance -260 -225 -95 Intake: IV 900 900 150 Sodium Chloride 0.9% 1, 900 900 150 000 ml @ 75 mls/hr IV . [id number] [facility] Rx#:[id number] Output: Urine 1160 1125 245 Other: Voiding Method Indwelling Catheter Indwelling Catheter - Exam PHYSICAL EXAMINATION: Patient is lying in the bed comfortably, appears to be in mild distress, awake alert and oriented.. HEENT: Normocephalic. Neck is supple. Pupils reactive. Nostrils clear. Oral cavity is moist. Ears reveal no drainage. Neck reveals no JVD, carotid bruits, or thyromegaly. CHEST EXAMINATION: Trachea is central. Symmetrical expansion. Bilateral coarse breath sounds. No wheezing or rhonchi.. CARDIAC: Normal S1, S2 with no gallops. No murmurs ABDOMEN: Soft. Bowel sounds normal. No organomegaly. No abdominal bruits. Extremities: reveal no edema. No clubbing or cyanosis Neurologically awake, alert, oriented x3 with well-coordinated movements. No focal deficits noted Skin: No rash or skin lesions. Psychiatric: Coperative. Nonsuicidal Musculoskeletal: No joint swelling or deformity. Normal range of motion. - Labs CBC & Chem 7: 03/04/21 03:46 03/04/21 03:46 Labs: Abnormal Lab Results - Last 24 Hours (Table) 03/05/21 03/05/21 03/05/21 Range/Units 03:59 03:59 07:00 D-Dimer 2.88 H (<0.60) mg/L FEU POC Glucose (mg/dL) 182 H (75-99) mg/dL Lactate Dehydrogenase 2465 H (313-618) U/L C-Reactive Protein 1.9 H (<1.0) mg/dL 03/05/21 03/05/21 03/05/21 Range/Units 12:48 16:40 20:52 D-Dimer (<0.60) mg/L FEU POC Glucose (mg/dL) 142 H 185 H 157 H (75-99) mg/dL Lactate Dehydrogenase (313-618) U/L C-Reactive Protein (<1.0) mg/dL Microbiology - Last 24 Hours (Table) 03/01/21 14:14 Blood Culture - Preliminary Blood No Growth after 96 hours 03/01/21 14:14 Blood Culture - Preliminary Blood No Growth after 96 hours Assessment and Plan Assessment: Acute hypoxic respiratory failure secondary to COVID-19 pneumonia. on Airvo 60L fio2 90% Acute COVID-19 pneumonia with multifocal groundglass opacities with lower lung organizing consolidation. Elevated D-dimer level with no evidence of PE on CTA chest Lactic acidosis secondary to hypoxia improved now Leukopenia Acute kidney injury with creatinine 1.42 Elevated inflammatory markers Hypertension DVT prophylaxis Lovenox. Plan: Patient will be continued on oxygen supplementation at 15 L via nonrebreather intermittently and Air vo 60L with 90% Fio2. continue on dexamethasone 6 mg daily--> BID, Lovenox 40 mg subcu daily and breathing treatments . Patient was given a dose of Tocilizumab on 03/02/2021 Continue to monitor the patient in MICU. Continue with multivitamins and follow-up closely. Pulmonary will be consulted and further recommendations based on clinical course. Prognosis guarded at this time. Time with Patient: Greater than 30
[2021-03-06 03:45] LABS: Basophils # (A) 0.1 k/uL (0-0.2); Basophils % (A) 1 %; Eosinophils # (A) 0.1 k/uL (0-0.7); Eosinophils % (A) 2 %; HCT 50.8 % (39.0-53.0); Lymphocytes # (A) 0.8 k/uL (1.0-4.8); Lymphocytes % (A) 11 %; MCH 30.1 pg (25.0-35.0); MCHC 33.5 g/dL (31.0-37.0); MCV 89.8 fL (80.0-100.0); Mean Platelet Volume 7.3; Monocytes # (A) 0.4 k/uL (0-1.0); Monocytes % (A) 5 %; Neutrophils # (A) 6.4 k/uL (1.3-7.7); Neutrophils % (A) 80 %; Platelet Count 262 k/uL (150-450); RBC 5.65 m/uL (4.30-5.90); RDW 13.9 % (11.5-15.5); WBC 7.9 k/uL (3.8-10.6)
[2021-03-06 03:57] LABS: ALT 108 U/L (4-49); AST 41 U/L (17-59); African American GFR (CKD) >90 (>60 ml/min/1.73 sqM); Albumin 3.6 g/dL (3.5-5.0); Alkaline Phosphatase 109 U/L (38-126); Anion Gap 6 mmol/L; Blood Urea Nitrogen 29 mg/dL (9-20); Calcium 8.6 mg/dL (8.4-10.2); Carbon Dioxide 24 mmol/L (22-30); Chloride 105 mmol/L (98-107); Glucose 146 mg/dL (74-99); Magnesium 2.2 mg/dL (1.6-2.3); Non-African American GFR(CKD) >90 (>60 ml/min/1.73 sqM); Phosphorus 4.4 mg/dL (2.5-4.5); Potassium 4.9 mmol/L (3.5-5.1); Sodium 135 mmol/L (137-145); Total Bilirubin 0.7 mg/dL (0.2-1.3); Total Protein 6.3 g/dL (6.3-8.2)
--- NOTE | 2021-03-06 07:19 | XR ---
EXAMINATION TYPE: XR chest 1V portable DATE OF EXAM: 03/06/2021 COMPARISON: 03/05/2021 HISTORY: Cough TECHNIQUE: Single frontal view of the chest is obtained. FINDINGS: Diffuse interstitial pattern with bibasilar subsegmental consolidation. No pneumothorax. H eart size normal. IMPRESSION: Bilateral interstitial infiltrate stable.
[2021-03-06] MEDS: ALBUTEROL HFA INHALER INHALATION PRN ×3 (07:34→19:17)
[2021-03-06] MEDS: ENOXAPARIN 40 MG/0.4 ML SYRINGE SQ SCH (08:05)
[2021-03-06] MEDS: DEXAMETHASONE SOD PHOSPHATE 10 MG/ML 1 ML VIAL IV SCH ×2 (08:05→22:00)
[2021-03-06] MEDS: ASCORBIC ACID 500 MG TAB PO SCH (08:05)
[2021-03-06] MEDS: FAMOTIDINE 20 MG TAB PO SCH ×2 (08:05→22:00)
[2021-03-06] MEDS: CHOLECALCIFEROL 25 MCG (1000 IU) TABLET PO SCH (08:05)
[2021-03-06] MEDS: ZINC SULFATE 220 MG CAP PO SCH (08:06)
[2021-03-06] MEDS: INSULIN ASPART (NovoLOG) 100 UNIT/ML VIAL SQ SCH ×4 (08:33→22:18)
[2021-03-06] MEDS: SODIUM CHLORIDE 0.9% 1,000 ML IV SCH ×2 (08:33→14:15)
[2021-03-06 11:23] LABS: Glucose,Whole Blood 174 mg/dL (75-99)
--- NOTE | 2021-03-06 12:06 | P.PN ---
Subjective Progress Note Date: 03/06/21 55-year-old male patient, diagnosed having COVID-19 infection, as the patient started getting symptomatic approximately 5 days ago. He started having some fevers initially and following that he started having increased cough and shortness of breath and for that reason he came into the hospital. He was di agnosed having COVID-19 pneumonia. In the emergency department, the patient was hypoxic with pulse ox of 70% and he was short of breath. He was placed on 100% nonrebreather facemask and his pulse ox was brought up to 90%. He was hemodynamically stable. His chest x-ray showed bilateral interstitial pulmonary infiltrates most on the lower lobes although difficulties are rather diffuse. His blood work at a time of admission showed normal white cell count of 4.2 with a lymphopenia. His d-dimer is at 1.1, he had an acute kidney injury with a creatinine of 1.4 which improvement in the creatinine is down to 0.9, LDH is significantly elevated at 2539, with a CRP level of 15.4 and appropriate acetone level of 0.4. Coagulation profile is within normal limits. Blood sugar was 168. He also underwent a CT angiogram of the chest that showed no evidence of any pulmonary embolism. There was found to have emphysema and a background in addition to bilateral groundglass pulmonary infiltrates scattered throughout the lung hirsch bilaterally both in the upper and lower lobes. Some minimal areas of consolidation in the lung bases. The rest is essentially consistent with groundglass pulmonary infiltrates. No mediastinal lymphadenopathy. No pulmonary embolism. 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 He was in [place] on his last trip, he started getting symptomatic approximately 5 days ago. He was in [place] and [place] the week prior. It, the patient's oxidation got worse and the patient was placed on high flow oxygen and currently is on 60 L of oxygen by nasal cannula with a 90% FiO2 and a nonrebreather facemask. He is currently on Decadron 6 mg by mouth on a daily basis and the patient is also on Lovenox 40 mg subcu daily. Comorbid conditions include COPD and hypertension. 69 was quite dehydrated as the patient was not taken oral intake and he was quite intravascularly depleted with an acute kidney injury. On 03/03/2021 patient seen in follow-up in the intensive care unit, he is resting in bed on his left side, he is currently on Airvo 60 L and FiO2 of 90% and 100% nonrebreather mask and his pulse ox is 90-95%. He has 0.9 normal saline at 75 ML per hour, no other drips, he status post Tocilizumab 720 mg IV infusion yesterday on 03/02/2021. He is on Decadron 6 mg twice daily, she is on prophylactic dose of Lovenox, CTA chest showed no evidence of pulmonary embolism. Today's d-dimer is 1.16, LDH is 2590, and CRP is 4.6. Clinically patient states he is breathing easier, and she doesn't desaturate as low with repositioning, he has been positioning self in bed, and self proning, tolerating activity well, no nausea vomiting or diarrhea, and today she states she's actually feeling hungry. Today's chest x-ray also bilateral multifocal and confluent opacities consistent with COVID-19 infection stable in appearance compared to days ago. On 03/06/2021 patient seen in follow-up in the intensive care unit. He remains on high flow oxygen, per Airvo at 60 L/m, and FiO2 of 90% in addition to her percent nonrebreather mask with a pulse ox between 85-87%, he is laying on his left side, he is unable to tolerate proning. His IV fluids are infusing at 75 ML per hour, his chest x-ray today shows bilateral interstitial infiltrates that are stable in appearance. Overall seems to be in no acute distress. His labs have been reviewed showing white blood cell, 7.9, hemoglobin of 17, his sodium is 135, the rest of electrolytes were within normal limits, BUN of 29 creatinine of 0.70, AST of 41, ALT of 108, alkaline phosphatase of 109. His last d-dimer from yesterday was 2.88, and patient remains on prophylactic dose of Lovenox at 40 mg once daily, he remains on IV Decadron 6 mg daily. He is on vitamins including vitamin C, vitamin D and zinc, he is on normal saline at 75 ML per hour, his appetite has been fair, as a matter fact his been ordering takeout via [employer]. His blood pressure has been stable, his been afebrile, he is in sinus mechanism. No complaints of chest discomfort no cough. Objective - Vital Signs Vital signs: Vital Signs Temp 97.7 F 03/06/21 09:00 Pulse 93 05/10/21 11:00 Resp 27 H 03/06/21 11:00 BP 113/76 03/06/21 11:00 Pulse Ox 87 L 03/06/21 11:00 Intake & Output 03/05/21 03/06/21 03/06/21 18:59 06:59 18:59 Intake Total 900 900 375 Output Total 1125 1030 330 Balance -225 -130 45 Weight 97.9 kg Intake: IV 900 900 375 Sodium Chloride 0.9% 1, 900 900 375 000 ml @ 75 mls/hr IV . [id number] [facility] Rx#:[id number] Output: Urine 1125 1030 330 Other: Voiding Method Indwelling Catheter Indwelling Catheter Indwelling Catheter - Exam GENERAL EXAM: Alert, , 55-year-old white male, laying on his left side in bed in the intensive care unit, on Airvo at 60 L and FiO2 of 90% and 100% nonrebreather mask, with pulse ox ranging between 85-89%comfortable in no appar ent distress. HEAD: Normocephalic/atraumatic. EYES: Normal reaction of pupils, equal size. Conjunctiva pink, sclera white. NOSE: Clear with pink turbinates. THROAT: No erythema or exudates. NECK: No masses, no JVD, no thyroid enlargement, no adenopathy. CHEST: No chest wall deformity. Symmetrical expansion. LUNGS: Equal air entry with diminished breath sounds at the bases, no crackles, no rhonchi no wheezes CVS: Regular rate and rhythm, normal S1 and S2, no gallops, no murmurs, no rubs ABDOMEN: Soft, nontender. No hepatosplenomegaly, normal bowel sounds, no guarding or rigidity. EXTREMITIES: No clubbing, no edema, no cyanosis, 2+ pulses and upper and lower extremities. MUSCULOSKELETAL: Muscle strength and tone normal. SPINE: No scoliosis or deformity SKIN: No rashes CENTRAL NERVOUS SYSTEM: Alert and oriented -3. No focal deficits, tone is normal in all 4 extremities. PSYCHIATRIC: Alert and oriented -3. Appropriate affect. Intact judgment and insight. - Labs CBC & Chem 7: 03/06/21 03:30 03/06/21 03:30 Labs: Abnormal Lab Results - Last 24 Hours (Table) 05/09/21 05/09/21 05/09/21 Range/Units 12:48 16:40 20:52 Lymphocytes # (1.0-4.8) k/uL Sodium (137-145) mmol/L BUN (9-20) mg/dL Glucose (74-99) mg/dL POC Glucose (mg/dL) 142 H 185 H 157 H (75-99) mg/dL ALT (4-49) U/L 03/06/21 03/06/21 03/06/21 Range/Units 03:30 03:30 11:20 Lymphocytes # 0.8 L (1.0-4.8) k/uL Sodium 135 L (137-145) mmol/L BUN 29 H (9-20) mg/dL Glucose 146 H (74-99) mg/dL POC Glucose (mg/dL) 174 H (75-99) mg/dL ALT 108 H (4-49) U/L Microbiology - Last 24 Hours (Table) 03/01/21 14:14 Blood Culture - Preliminary Blood No Growth after 96 hours 03/01/21 14:14 Blood Culture - Preliminary Blood No Growth after 96 hours Assessment and Plan Plan: Assessment: #1. Acute COVID-19 related pneumonia with diffuse but the pulmonary infiltrates/groundglass changes. Patient started getting symptoms approximately 5 days ago and the patient was diagnosed having COVID-19 infection on 03/01/2021 and a diagnosis was established at [facility]. He is quite hypoxic and he presented with significant shortness of breath and hypoxemia the time of admissi on and currently is on high flow oxygen 60 L with an FiO2 of 90% and the patient is also utilizing 100% on a beta facemasks. Transferred to the intensive care unit on 03/02/2021 and received a dose of Tocilizumab on 03/02/2021 #2. Acute hypoxic respiratory failure secondary to above #3. elevated inflammatory markers secondary to COVID-19 related infection/pneumonia #4. COPD #5. acute kidney injury, improving #6. hypertension Plan: Continue Airvo and NRB facemask to keep O2 sat saturation at 89-90% or above Today's chest x-ray has been reviewed showing stable findings of bilateral infiltrates Continue encouraging the patient to self prone or change positions from side to side Continue current dose Decadron Continue Lovenox, will obtain follow-up d-dimer Supplemental nutrition in the form of Ensure, and diet as tolerated Patient does not want intubation, and mechanical ventilation, or heroic life- sustaining measures in case of further deterioration CODE STATUS will be updated to DO NOT RESUSCITATE We'll continue supportive treatment I performed a history & physical examination of the patient and discussed their management with my nurse practitioner, Carola Bourgeois. I reviewed the nurse practitioner's note and agree with the documented findings and plan of care. Lung sounds are positive for diminished breath sounds. The findings and the impression was discussed with the patient. I attest to the documentation by the nurse practitioner. Time with Patient: Greater than 30
[2021-03-06] MEDS: ALPRAZolam 0.5 MG TAB PO PRN ×2 (12:20→16:40)
[2021-03-06 16:39] LABS: Glucose,Whole Blood 206 mg/dL (75-99)
[2021-03-06] MEDS: amLODIPine 10 MG TAB PO SCH (22:00)
[2021-03-06 22:08] LABS: Glucose,Whole Blood 175 mg/dL (75-99)
[2021-03-07 03:57] LABS: Basophils % (A) 1 %; Eosinophils # (A) 0.1 k/uL (0-0.7); Eosinophils % (A) 1 %; HGB 17.2 gm/dL (13.0-17.5); Lymphocytes # (A) 0.4 k/uL (1.0-4.8); Lymphocytes % (A) 5 %; MCH 32.2 pg (25.0-35.0); MCHC 35.7 g/dL (31.0-37.0); MCV 90.2 fL (80.0-100.0); Mean Platelet Volume 7.6; Monocytes # (A) 0.3 k/uL (0-1.0); Monocytes % (A) 4 %; Neutrophils # (A) 6.9 k/uL (1.3-7.7); Neutrophils % (A) 89 %; Platelet Count 247 k/uL (150-450); RBC 5.32 m/uL (4.30-5.90); RDW 13.9 % (11.5-15.5); WBC 7.8 k/uL (3.8-10.6)
[2021-03-07 04:10] LABS: ALT 85 U/L (4-49); AST 39 U/L (17-59); African American GFR (CKD) >90 (>60 ml/min/1.73 sqM); Albumin 3.4 g/dL (3.5-5.0); Alkaline Phosphatase 106 U/L (38-126); Anion Gap 7 mmol/L; Blood Urea Nitrogen 25 mg/dL (9-20); C Reactive Protein 0.8 mg/dL (<1.0); Calcium 8.2 mg/dL (8.4-10.2); Carbon Dioxide 24 mmol/L (22-30); Chloride 105 mmol/L (98-107); Glucose 187 mg/dL (74-99); LDH 1831 U/L (313-618); Non-African American GFR(CKD) >90 (>60 ml/min/1.73 sqM); Potassium 5.5 mmol/L (3.5-5.1); Sodium 136 mmol/L (137-145); Total Bilirubin 0.7 mg/dL (0.2-1.3)
[2021-03-07] MEDS: ALPRAZolam 0.5 MG TAB PO PRN ×3 (05:14→20:32)
--- NOTE | 2021-03-07 07:08 | XR ---
EXAMINATION TYPE: XR chest 1V portable DATE OF EXAM: 03/07/2021 COMPARISON: 03/06/2021 HISTORY: Difficulty breathing TECHNIQUE: Single frontal view of the chest is obtained. FINDINGS: Bilateral consolidation and small effusion. Coarsened interstitium. No pneumothorax. Heart size normal. IMPRESSION: Bilateral infiltrates are stable.
[2021-03-07] MEDS: ASCORBIC ACID 500 MG TAB PO SCH (08:06)
[2021-03-07] MEDS: SODIUM CHLORIDE 0.9% 1,000 ML IV SCH ×2 (08:06→16:59)
[2021-03-07] MEDS: ZINC SULFATE 220 MG CAP PO SCH (08:07)
[2021-03-07] MEDS: DEXAMETHASONE SOD PHOSPHATE 10 MG/ML 1 ML VIAL IV SCH ×2 (08:07→20:34)
[2021-03-07] MEDS: FAMOTIDINE 20 MG TAB PO SCH ×2 (08:07→20:32)
[2021-03-07] MEDS: CHOLECALCIFEROL 25 MCG (1000 IU) TABLET PO SCH (08:07)
[2021-03-07] MEDS: ENOXAPARIN 40 MG/0.4 ML SYRINGE SQ SCH (08:07)
[2021-03-07] MEDS: ALBUTEROL HFA INHALER INHALATION PRN ×2 (08:21→19:57)
[2021-03-07] MEDS: INSULIN ASPART (NovoLOG) 100 UNIT/ML VIAL SQ SCH ×4 (08:27→20:34)
[2021-03-07 08:36] LABS: Glucose,Whole Blood 202 mg/dL (75-99)
[2021-03-07] MEDS ORDERED: SODIUM POLYSTYRENE SULFONATE 15 GM/60 ML BOTTLE PO STA (09:12)
[2021-03-07 11:38] LABS: Magnesium 2.2 mg/dL (1.6-2.3); Phosphorus 3.8 mg/dL (2.5-4.5)
[2021-03-07 12:04] LABS: Glucose,Whole Blood 159 mg/dL (75-99)
--- NOTE | 2021-03-07 12:39 | P.PN ---
Subjective Progress Note Date: 03/07/21 Principal diagnosis: Acute hypoxic respiratory failure secondary to COVID-19 pneumonia 55-year-old male patient, diagnosed having COVID-19 infection, as the patient started getting symptomatic approximately 5 days ago. He started having some fevers initially and following that he started having increased cough and shortness of breath and for that reason he came into the hospital. He was diagnosed having COVID-19 pneumonia. In the emergency department, the patient was hypoxic with pulse ox of 70% and he was short of breath. He was placed on 100% nonrebreather facemask and his pulse ox was brought up to 90%. He was hemodynamically stable. His chest x-ray showed bilateral interstitial pulmonary infiltrates most on the lower lobes although difficulties are rather diffuse. His blood work at a time of admission showed normal white cell count of 4.2 with a lymphopenia. His d-dimer is at 1.1, he had an acute kidney injury with a creatinine of 1.4 which improvement in the creatinine is down to 0.9, LDH is significantly elevated at 2539, with a CRP level of 15.4 and appropriate acetone level of 0.4. Coagulation profile is within normal limits. Blood sugar was 16 8. He also underwent a CT angiogram of the chest that showed no evidence of any pulmonary embolism. There was found to have emphysema and a background in addition to bilateral groundglass pulmonary infiltrates scattered throughout the lung hirsch bilaterally both in the upper and lower lobes. Some minimal areas of consolidation in the lung bases. The rest is essentially consistent with groundglass pulmonary infiltrates. No mediastinal lymphadenopathy. No pulmonary embolism. 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 He was in [place] and [place] the week prior. It, the patient's oxidation got worse and the patient was placed on high flow oxygen and currently is on 60 L of oxygen by nasal cannula with a 90% FiO2 and a nonrebreather facemask. He is currently on Decadron 6 mg by mouth on a daily basis and the patient is also on Lovenox 40 mg subcu daily. Comorbid conditions include COPD and hypertension. 70 was quite dehydrated as the patient was not taken oral intake and he was quite intravascularly depleted with an acute kidney injury. On 03/03/2021 patient seen in follow-up in the intensive care unit, he is resting in bed on his left side, he is currently on Airvo 60 L and FiO2 of 90% and 100% nonrebreather mask and his pulse ox is 90-95%. He has 0.9 normal saline at 75 ML per hour, no other drips, he status post Tocilizumab 720 mg IV infusion yesterday on 03/02/2021. He is on Decadron 6 mg twice daily, she is on prophylactic dose of Lovenox, CTA chest showed no evidence of pulmonary embolis m. Today's d-dimer is 1.16, LDH is 2590, and CRP is 4.6. Clinically patient states he is breathing easier, and she doesn't desaturate as low with repositioning, he has been positioning self in bed, and self proning, tolerating activity well, no nausea vomiting or diarrhea, and today she states she's actually feeling hungry. Today's chest x-ray also bilateral multifocal and confluent opacities consistent with COVID-19 infection stable in appearance compared to days ago. On 03/06/2021 patient seen in follow-up in the intensive care unit. He remains on high flow oxygen, per Airvo at 60 L/m, and FiO2 of 90% in addition to her percent nonrebreather mask with a pulse ox between 85-87%, he is laying on his left side, he is unable to tolerate proning. His IV fluids are infusing at 75 ML per hour, his chest x-ray today shows bilateral interstitial infiltrates that are stable in appearance. Overall seems to be in no acute distress. His labs have been reviewed showing white blood cell, 7.9, hemoglobin of 17, his sodium is 135, the rest of electrolytes were within normal limits, BUN of 29 creatinine of 0.70, AST of 41, ALT of 108, alkaline phosphatase of 109. His last d-dimer from yesterday was 2.88, and patient remains on prophylactic dose of Lovenox at 40 mg once daily, he remains on IV Decadron 6 mg daily. He is on vitamins including vitamin C, vitamin D and zinc, he is on normal saline at 75 ML per hour, his appetite has been fair, as a matter fact his been ordering takeout via [employer]. His blood pressure has been stable, his been afebrile, he is in sinus mechanism. No complaints of chest discomfort no cough. Patient was reevaluated today on 03/07/2021, remains on high flow oxygen, we are utilizing airvo at 90% FiO2 and 60 L flow he is also on a nonrebreather mask on the percent, O2 saturation is 87% at best. Patient feels better when he lays on his left side, and his saturations improved, however he desaturates significantly when he lays flat. Patient is hemodynamically stable, his IV fluid is 0.9 normal saline at 75 mL/h, he is not requiring any pressors, however his potassium was noted to be a bit high today at 5.5, and the patient will receive a dose Kayexalate. Overall the patient states that he doesn't feel too bad, coping with his profound hypoxemia and again he does not want to be on mechanical ventilation no matter what. CBC is relatively normal. Electrolytes are normal except for elevated potassium. Renal profile is normal. Chest x-ray continues to show bilateral infiltrates consistent with COVID-19 pneumonia not much of a change in the last 24 hours. Objective - Vital Signs Vital signs: Vital Signs Temp 98.3 F 03/07/21 08:00 Pulse 92 03/07/21 09:00 Resp 28 H 03/07/21 09:00 BP 99/70 03/07/21 09:00 Pulse Ox 85 L 03/07/21 09:00 Intake & Output 03/06/21 03/07/21 03/07/21 18:59 06:59 18:59 Intake Total 900 900 150 Output Total 830 745 160 Balance 70 155 -10 Weight 98 kg Intake: IV 900 900 150 Sodium Chloride 0.9% 1, 900 900 150 000 ml @ 75 mls/hr IV . [id number] [facility] Rx#:[id number] Output: Urine 830 745 160 Other: Voiding Method Indwelling Catheter Indwelling Catheter Indwelling Catheter - Exam Physical Exam revealed 55-year-old white male on a relatively high FiO2 via nonrebreather mask and airvo, not in distress clinically. Head: Atraumatic, normocephalic. HEENT:[Neck is supple.] [No neck masses.] [No thyromegaly.] [No JVD.] Chest: Symmetrical expansion fine crackles at the bases no rhonchi and no wheezes.] Cardiac Exam: [Normal S1 and S2, no S3 gallop, no murmur.] Abdomen: [Soft, nontender, no megaly, no rebound, no guarding, normal bowel sounds.] Extremities: [No clubbing, no edema, no cyanosis.] Neurological Exam: [No focal neurologic deficit.] Alert and oriented 3. Psychiatric: Normal mood, affect and normal mental status examination. Skin: No rashes. Musculoskeletal: No deformities and no limitation in range of motion. - Labs CBC & Chem 7: 03/07/21 03:20 03/07/21 03:20 Labs: Abnormal Lab Results - Last 24 Hours (Table) 03/06/21 03/06/21 03/07/21 Range/Units 16:38 22:07 03:20 Lymphocytes # 0.4 L (1.0-4.8) k/uL D-Dimer (<0.60) mg/L FEU Sodium (137-145) mmol/L Potassium (3.5-5.1) mmol/L BUN (9-20) mg/dL Glucose (74-99) mg/dL POC Glucose (mg/dL) 206 H 175 H (75-99) mg/dL Calcium (8.4-10.2) mg/dL ALT (4-49) U/L Lactate Dehydrogenase (313-618) U/L Total Protein (6.3-8.2) g/dL Albumin (3.5-5.0) g/dL 03/07/21 03/07/21 03/07/21 Range/Units 03:20 03:20 08:25 Lymphocytes # (1.0-4.8) k/uL D-Dimer 3.78 H (<0.60) mg/L FEU Sodium 136 L (137-145) mmol/L Potassium 5.5 H (3.5-5.1) mmol/L BUN 25 H (9-20) mg/dL Glucose 187 H (74-99) mg/dL POC Glucose (mg/dL) 202 H (75-99) mg/dL Calcium 8.2 L (8.4-10.2) mg/dL ALT 85 H (4-49) U/L Lactate Dehydrogenase 1831 H (313-618) U/L Total Protein 6.0 L (6.3-8.2) g/dL Albumin 3.4 L (3.5-5.0) g/dL 03/07/21 Range/Units 12:02 Lymphocytes # (1.0-4.8) k/uL D-Dimer (<0.60) mg/L FEU Sodium (137-145) mmol/L Potassium (3.5-5.1) mmol/L BUN (9-20) mg/dL Glucose (74-99) mg/dL POC Glucose (mg/dL) 159 H (75-99) mg/dL Calcium (8.4-10.2) mg/dL ALT (4-49) U/L Lactate Dehydrogenase (313-618) U/L Total Protein (6.3-8.2) g/dL Albumin (3.5-5.0) g/dL Microbiology - Last 24 Hours (Table) 03/01/21 14:14 Blood Culture - Preliminary Blood No Growth after 120 hours 03/01/21 14:14 Blood Culture - Preliminary Blood No Growth after 120 hours Assessment and Plan Assessment: Impression: Acute hypoxic respiratory failure due to COVID-19 pneumonia his initial diagnosis was made on 03/01/2021, patient is requiring relatively high FiO2 and his O2 saturation is marginal. Patient was brought down to the ICU on 03/02 and he received a dose of toci elevated inflammatory markers secondary to above. History of underlying COPD. Acute kidney injury. Hypertension. Recommendation: Continue present supportive care measures Titrate FiO2 accordingly and maintain O2 saturation hopefully in the high 80s and low 90s. Encourage Prone position if possible. Continue Lovenox. Continue Decadron. CODE STATUS remains DO NOT RESUSCITATE. We'll continue to follow in the ICU Time with Patient: Less than 30
[2021-03-07 16:51] LABS: Glucose,Whole Blood 245 mg/dL (75-99)
[2021-03-07 20:23] LABS: Glucose,Whole Blood 217 mg/dL (75-99)
[2021-03-07] MEDS: amLODIPine 10 MG TAB PO SCH (20:32)
--- NOTE | 2021-03-07 23:05 | P.PN ---
Subjective Progress Note Date: 03/06/21 Principal diagnosis: Acute hypoxic respiratory failure secondary to COVID-19 pneumonia Patient is a 55-year-old male with a known history of hypertension and previous history of smoking presents to ER due to worsening shortness of breath since Saturday. Patient states that he flew from [place] about 3 days ago and since then he has been having fever exertional dyspnea and cough and shortness of breath which has been worsening since then. Patient was seen [facility] and was diagnosed with COVID-19. Patient was found to be hypoxic and was having exertional dyspnea and sent to ER. Pulse ox was in the 70s as reported. Patient was dyspneic on on admission and was placed on 100% nonrebreather at 15 L oxygen and FiO2 90%. Her oxygen saturations went up to 88 to 90%. On admission blood pressure was 151/88 respiratory rate 30 heart rate 129 and pulse ox 88% on 15 L oxygen via nonrebreather. Chest x-ray showed interval development of interstitial perihilar and basilar infiltrates compatible with COVID-19 pneumonia. CTA chest showed no evidence of PE. Multifocal and confluent groundglass opacities with lower lung organizing consolidation bilaterally consistent with COVID-19 infection EKG showed sinus tachycardia 03/02/2021 Patient is currently resting in the bed 100% nonrebreather with 90% FiO2. Patient has been afebrile. Tachycardic and tachypneic and appears to use accessory muscles. Patient is being transferred to intensive care unit. Lab oratory data showed WBC 4.2 hemoglobin 16.6 and platelets 168 D-dimer 0.97 Sodium 138 potassium 4.5 chloride 106 BUN 26 creatinine 0.92 calcium 8.3 ferritin two 293.6 CRP trending down to 8.9 and procalcitonin level was 0.4 Pulmonary is on board. 03/03/2021 Patient is currently in MICU. Awake alert and oriented. On Airvo 60 L with FiO2 90% and is saturating at 90%. Patient is being cannula dexamethasone 6 mg twice daily and Lovenox. Patient received 1 dose of Tocilizumab on 03/02/2021. Laboratory data showed BUN 28 creatinine 0.76, D-dimer 1.16, CRP 4.6 and LDH 2.90. Patient is being monitored in the ICU. Pulmonary is on board. Denied any complaints of chest pain. Tolerating oral diet. No nausea vomiting or abdominal pain or diarrhea. 03/04/2021. Patient is currently in MICU. Requiring 60 L oxygen with FiO2 90%. Patient is getting prone ventilation. Chest x-ray showed diffuse mild nonspecific infiltrate can be compatible with atypical pneumonia. Laboratory pressure WBC 5.9 hemoglobin 16.4 platelets 231 lymphocytes 0.4 D- dimer 1.27 BUN 26 and creatinine 0.77 potassium 5.0 sodium 139 LDH 2574 and CRP 2.5 patient is afebrile. Remains dexamethasone IV 6 mg twice daily and Lovenox 40 mg subcu daily. Also on IV hydration with normal saline at 75 cc/h. Critical care team is on board. 03/05/2021 Patient remains in MICU. Awake and alert. Currently requiring 60 L oxygen with FiO2 90%. Pulse ox around 90% to 89%. Patient has been afebrile. Chest x-ray showed diffuse scattered increased lung markings can be compatible with atypical pneumonia. Mild cardiomegaly. Laboratory data showed D-dimer 2.88, LDH 2465 and CRP 1.9. Blood sugar is controlled. Patient is being continued dexamethasone 6 mg IV twice daily and Lovenox and multivitamins and IV hydration with normal saline at 75 cc/h. Pulmonary is on board. 03/06/2021 Patient is currently in MICU. Remains high flow oxygen with 100% nonrebreather intermittently and Airvo 60 L with FiO2 90% patient is a study yet upper 80s. Chest x-ray showed bilateral infiltrates that are stable in appearance. Patient is resting in the bed awake alert and oriented. Laboratory data showed WBC 7.9 hemoglobin 17, sodium 135, BUN 20 and creatinine 0.7 D-dimer was 2.88. Patient is on Lovenox, IV dexamethasone 6 mg daily and multi vitamins. Continue IV hydration. Current medications reviewed.On Objective - Vital Signs Vital signs: Vital Signs Temp 98.1 F 03/06/21 20:00 Pulse 104 H 03/06/21 21:00 Resp 40 H 03/06/21 21:00 BP 123/75 03/06/21 21:00 Pulse Ox 80 L 03/06/21 21:00 Intake & Output 03/06/21 03/06/21 03/07/21 06:59 18:59 06:59 Intake Total 900 900 150 Output Total 1030 830 120 Balance -130 70 30 Weight 97.9 kg Intake: IV 900 900 150 Sodium Chloride 0.9% 1, 900 900 150 000 ml @ 75 mls/hr IV . [id number] [facility] Rx#:[id number] Output: Urine 1030 830 120 Other: Voiding Method Indwelling Catheter Indwelling Catheter Indwelling Catheter - Exam PHYSICAL EXAMINATION: Patient is lying in the bed comfortably, appears to be in mild distress, awake alert and oriented.. HEENT: Normocephalic. Neck is supple. Pupils reactive. Nostrils clear. Oral cavity is moist. Ears reveal no drainage. Neck reveals no JVD, carotid bruits, or thyromegaly. CHEST EXAMINATION: Trachea is central. Symmetrical expansion. Bilateral coarse breath sounds. No wheezing or rhonchi.. CARDIAC: Normal S1, S2 with no gallops. No murmurs ABDOMEN: Soft. Bowel sounds normal. No organomegaly. No abdominal bruits. Extremities: reveal no edema. No clubbing or cyanosis Neurologically awake, alert, oriented x3 with well-coordinated movements. No focal deficits noted Skin: No rash or skin lesions. Psychiatric: Coperative. Nonsuicidal Musculoskeletal: No joint swelling or deformity. Normal range of motion. - Labs CBC & Chem 7: 03/07/21 03:20 03/07/21 03:20 Labs: Abnormal Lab Results - Last 24 Hours (Table) 03/06/21 03/06/21 03/06/21 Range/Units 03:30 03:30 11:20 Lymphocytes # 0.8 L (1.0-4.8) k/uL Sodium 135 L (137-145) mmol/L BUN 29 H (9-20) mg/dL Glucose 146 H (74-99) mg/dL POC Glucose (mg/dL) 174 H (75-99) mg/dL ALT 108 H (4-49) U/L 03/06/21 Range/Units 16:38 Lymphocytes # (1.0-4.8) k/uL Sodium (137-145) mmol/L BUN (9-20) mg/dL Glucose (74-99) mg/dL POC Glucose (mg/dL) 206 H (75-99) mg/dL ALT (4-49) U/L Microbiology - Last 24 Hours (Table) 03/01/21 14:14 Blood Culture - Preliminary Blood No Growth after 120 hours 03/01/21 14:14 Blood Culture - Preliminary Blood No Growth after 120 hours Assessment and Plan Assessment: Acute hypoxic respiratory failure secondary to COVID-19 pneumonia. on Airvo 60L fio2 90% Acute COVID-19 pneumonia with multifocal groundglass opacities with lower lung organizing consolidation. Elevated D-dimer level with no evidence of PE on CTA chest Lactic acidosis secondary to hypoxia improved now Leukopenia Acute kidney injury with creatinine 1.42 Elevated inflammatory markers Hypertension DVT prophylaxis Lovenox. Plan: Patient will be continued on oxygen supplementation at 15 L via nonrebreather intermittently and Air vo 60L with 90% Fio2. continue on dexamethasone 6 mg daily--> BID, Lovenox 40 mg subcu daily and breathing treatments . Patient was given a dose of Tocilizumab on 03/02/2021 Continue to monitor the patient in MICU. Continue with multivitamins and follow-up closely. Pulmonary will be consulted and further recommendations based on clinical course. Prognosis guarded at this time. Time with Patient: Greater than 30
--- NOTE | 2021-03-07 23:13 | P.PN ---
Subjective Progress Note Date: 03/07/21 Principal diagnosis: Acute hypoxic respiratory failure secondary to COVID-19 pneumonia Patient is a 55-year-old male with a known history of hypertension and previous history of smoking presents to ER due to worsening shortness of breath since Saturday. Patient states that he flew from [place] about 3 days ago and since then he has been having fever exertional dyspnea and cough and shortness of breath which has been worsening since then. Patient was seen [place] [facility] [place] and was diagnosed with COVID-19. Patient was found to be hypoxic and was having exertional dyspnea and sent to ER. Pulse ox was in the 70s as reported. Patient was dyspneic on on admission and was placed on 100% nonrebreather at 15 L oxygen and FiO2 90%. Her oxygen saturations went up to 88 to 90%. On admission blood pressure was 151/88 respiratory rate 30 heart rate 129 and pulse ox 88% on 15 L oxygen via nonrebreather. Chest x-ray showed interval development of interstitial perihilar and basilar infiltrates compatible with COVID-19 pneumonia. CTA chest showed no evidence of PE. Multifocal and confluent groundglass opacities with lower lung organizing consolidation bilaterally consistent with COVID-19 infection EKG showed sinus tachycardia 03/02/2021 Patient is currently resting in the bed 100% nonrebreather with 90% FiO2. Patient has been afebrile. Tachycardic and tachypneic and appears to use accessory muscles. Patient is being transferred to intensive care unit. Lab oratory data showed WBC 4.2 hemoglobin 16.6 and platelets 168 D-dimer 0.97 Sodium 138 potassium 4.5 chloride 106 BUN 26 creatinine 0.92 calcium 8.3 ferritin two 293.6 CRP trending down to 8.9 and procalcitonin level was 0.4 Pulmonary is on board. 03/03/2021 Patient is currently in MICU. Awake alert and oriented. On Airvo 60 L with FiO2 90% and is saturating at 90%. Patient is being cannula dexamethasone 6 mg twice daily and Lovenox. Patient received 1 dose of Tocilizumab on 03/02/2021. Laboratory data showed BUN 28 creatinine 0.76, D-dimer 1.16, CRP 4.6 and LDH 2.90. Patient is being monitored in the ICU. Pulmonary is on board. Denied any complaints of chest pain. Tolerating oral diet. No nausea vomiting or abdominal pain or diarrhea. 03/04/2021. Patient is currently in MICU. Requiring 60 L oxygen with FiO2 90%. Patient is getting prone ventilation. Chest x-ray showed diffuse mild nonspecific infiltrate can be compatible with atypical pneumonia. Laboratory pressure WBC 5.9 hemoglobin 16.4 platelets 231 lymphocytes 0.4 D- dimer 1.27 BUN 26 and creatinine 0.77 potassium 5.0 sodium 139 LDH 2574 and CRP 2.5 patient is afebrile. Remains dexamethasone IV 6 mg twice daily and Lovenox 40 mg subcu daily. Also on IV hydration with normal saline at 75 cc/h. Critical care team is on board. 03/05/2021 Patient remains in MICU. Awake and alert. Currently requiring 60 L oxygen with FiO2 90%. Pulse ox around 90% to 89%. Patient has been afebrile. Chest x-ray showed diffuse scattered increased lung markings can be compatible with atypical pneumonia. Mild cardiomegaly. Laboratory data showed D-dimer 2.88, LDH 2465 and CRP 1.9. Blood sugar is controlled. Patient is being continued dexamethasone 6 mg IV twice daily and Lovenox and multivitamins and IV hydration with normal saline at 75 cc/h. Pulmonary is on board. 03/06/2021 Patient is currently in MICU. Remains high flow oxygen with 100% nonrebreather intermittently and Airvo 60 L with FiO2 90% patient is a study yet upper 80s. Chest x-ray showed bilateral infiltrates that are stable in appearance. Patient is resting in the bed awake alert and oriented. Laboratory data showed WBC 7.9 hemoglobin 17, sodium 135, BUN 20 and creatinine 0.7 D-dimer was 2.88. Patient is on Lovenox, IV dexamethasone 6 mg daily and multi vitamins. Continue IV hydration. 03/08/2021 Patient is currently resting in the bed. Requiring high flow oxygen 60 L with FiO2 90% and saturating at 90%. Awake alert and oriented. No complaints of chest pain. Chest x-ray showed bilateral infiltrates are stable. Patient is getting IV hydration with normal saline at 75 cc/h. Continued on dexamethasone 6 mg IV twice daily, Lovenox 40 mg subcu daily. Continue on multivitamins. Blood pressure is stable. Patient is tachypneic and mildly tachycardic. Afebrile. No complaints of nausea or vomiting abdominal pain or diarrhea. Lab data showed sodium 136 potassium 5.5 BUN 25 and creatinine 0.67 blood sugar 187 LDH 1831, CRP 0.8 AST 39 ALT 85. Pulmonary is on board. Current medications reviewed.On Objective - Vital Signs Vital signs: Vital Signs Temp 98.3 F 03/07/21 20:00 Pulse 101 H 03/07/21 20:00 Resp 50 H 03/07/21 20:00 BP 125/83 03/07/21 20:00 Pulse Ox 89 L 03/07/21 20:00 Intake & Output 03/07/21 03/07/21 03/08/21 06:59 18:59 06:59 Intake Total 900 825 625 Output Total 745 920 350 Balance 155 -95 275 Weight 98 kg 98 kg Intake: IV 900 825 225 Sodium Chloride 0.9% 1, 900 825 225 000 ml @ 75 mls/hr IV . [id number] [facility] Rx#:[id number] Oral 400 Output: Urine 745 920 350 Other: Voiding Method Indwelling Catheter Indwelling Catheter Indwelling Catheter - Exam PHYSICAL EXAMINATION: Patient is lying in the bed comfortably, appears to be in mild distress, awake alert and oriented.. HEENT: Normocephalic. Neck is supple. Pupils reactive. Nostrils clear. Oral cavity is moist. Ears reveal no drainage. Neck reveals no JVD, carotid bruits, or thyromegaly. CHEST EXAMINATION: Trachea is central. Symmetrical expansion. Bilateral coarse breath sounds. No wheezing or rhonchi.. CARDIAC: Normal S1, S2 with no gallops. No murmurs ABDOMEN: Soft. Bowel sounds normal. No organomegaly. No abdominal bruits. Extremities: reveal no edema. No clubbing or cyanosis Neurologically awake, alert, oriented x3 with well-coordinated movements. No focal deficits noted Skin: No rash or skin lesions. Psychiatric: Coperative. Nonsuicidal Musculoskeletal: No joint swelling or deformity. Normal range of motion. - Labs CBC & Chem 7: 03/07/21 03:20 03/07/21 03:20 Labs: Abnormal Lab Results - Last 24 Hours (Table) 03/06/21 03/07/21 03/07/21 Range/Units 22:07 03:20 03:20 Lymphocytes # 0.4 L (1.0-4.8) k/uL D-Dimer 3.78 H (<0.60) mg/L FEU Sodium (137-145) mmol/L Potassium (3.5-5.1) mmol/L BUN (9-20) mg/dL Glucose (74-99) mg/dL POC Glucose (mg/dL) 175 H (75-99) mg/dL Calcium (8.4-10.2) mg/dL ALT (4-49) U/L Lactate Dehydrogenase (313-618) U/L Total Protein (6.3-8.2) g/dL Albumin (3.5-5.0) g/dL 03/07/21 03/07/21 03/07/21 Range/Units 03:20 08:25 12:02 Lymphocytes # (1.0-4.8) k/uL D-Dimer (<0.60) mg/L FEU Sodium 136 L (137-145) mmol/L Potassium 5.5 H (3.5-5.1) mmol/L BUN 25 H (9-20) mg/dL Glucose 187 H (74-99) mg/dL POC Glucose (mg/dL) 202 H 159 H (75-99) mg/dL Calcium 8.2 L (8.4-10.2) mg/dL ALT 85 H (4-49) U/L Lactate Dehydrogenase 1831 H (313-618) U/L Total Protein 6.0 L (6.3-8.2) g/dL Albumin 3.4 L (3.5-5.0) g/dL 03/07/21 03/07/21 Range/Units 16:49 20:22 Lymphocytes # (1.0-4.8) k/uL D-Dimer (<0.60) mg/L FEU Sodium (137-145) mmol/L Potassium (3.5-5.1) mmol/L BUN (9-20) mg/dL Glucose (74-99) mg/dL POC Glucose (mg/dL) 245 H 217 H (75-99) mg/dL Calcium (8.4-10.2) mg/dL ALT (4-49) U/L Lactate Dehydrogenase (313-618) U/L Total Protein (6.3-8.2) g/dL Albumin (3.5-5.0) g/dL Microbiology - Last 24 Hours (Table) 03/01/21 14:14 Blood Culture - Final Blood No Growth after 144 hours 03/01/21 14:14 Blood Culture - Final Blood No Growth after 144 hours Assessment and Plan Assessment: Acute hypoxic respiratory failure secondary to COVID-19 pneumonia. on Airvo 60L fio2 90% Acute COVID-19 pneumonia with multifocal groundglass opacities with lower lung organizing consolidation. Elevated D-dimer level with no evidence of PE on CTA chest Lactic acidosis secondary to hypoxia improved now Leukopenia Acute kidney injury with creatinine 1.42 Elevated inflammatory markers Hypertension DVT prophylaxis Lovenox. Plan: Patient will be continued on oxygen supplementation at 15 L via nonrebreather intermittently and Air vo 60L with 90% Fio2. continue on dexamethasone 6 mg daily--> BID, Lovenox 40 mg subcu daily and breathing treatments . Patient was given a dose of Tocilizumab on 03/02/2021 Continue to monitor the patient in MICU. Continue with multivitamins and follow-up closely. Pulmonary will be consulted and further recommendations based on clinical course. Prognosis guarded at this time. Time with Patient: Greater than 30
[2021-03-08] MEDS: ALPRAZolam 0.5 MG TAB PO PRN ×2 (03:31→19:36)
[2021-03-08 03:42] LABS: Basophils % (A) 0 %; Eosinophils # (A) 0.1 k/uL (0-0.7); Eosinophils % (A) 1 %; HCT 49.9 % (39.0-53.0); HGB 16.8 gm/dL (13.0-17.5); Lymphocytes # (A) 0.3 k/uL (1.0-4.8); Lymphocytes % (A) 3 %; MCH 30.5 pg (25.0-35.0); MCHC 33.7 g/dL (31.0-37.0); MCV 90.5 fL (80.0-100.0); Mean Platelet Volume 7.5; Monocytes # (A) 0.4 k/uL (0-1.0); Monocytes % (A) 4 %; Neutrophils # (A) 9.2 k/uL (1.3-7.7); Neutrophils % (A) 91 %; Platelet Count 281 k/uL (150-450); RBC 5.51 m/uL (4.30-5.90); RDW 13.9 % (11.5-15.5); WBC 10.1 k/uL (3.8-10.6)
[2021-03-08 04:05] LABS: ALT 66 U/L (4-49); AST 28 U/L (17-59); African American GFR (CKD) >90 (>60 ml/min/1.73 sqM); Albumin 3.3 g/dL (3.5-5.0); Alkaline Phosphatase 115 U/L (38-126); Anion Gap 6 mmol/L; Blood Urea Nitrogen 26 mg/dL (9-20); Calcium 8.7 mg/dL (8.4-10.2); Carbon Dioxide 23 mmol/L (22-30); Chloride 107 mmol/L (98-107); Glucose 226 mg/dL (74-99); Non-African American GFR(CKD) >90 (>60 ml/min/1.73 sqM); Sodium 136 mmol/L (137-145); Total Bilirubin 0.6 mg/dL (0.2-1.3); Total Protein 5.8 g/dL (6.3-8.2)
[2021-03-08 04:18] LABS: Potassium 4.8 mmol/L (3.5-5.1)
[2021-03-08] MEDS: SODIUM CHLORIDE 0.9% 1,000 ML IV SCH ×2 (05:06→20:13)
[2021-03-08 06:30] LABS: Glucose,Whole Blood 232 mg/dL (75-99)
[2021-03-08] MEDS: INSULIN ASPART (NovoLOG) 100 UNIT/ML VIAL SQ SCH ×4 (06:31→19:36)
--- NOTE | 2021-03-08 07:18 | XR ---
EXAMINATION TYPE: XR chest 1V portable DATE OF EXAM: 03/08/2021 HISTORY: Shortness of breath. COMPARISON: 03/07/2021 TECHNIQUE: Single view of the chest is submitted. FINDINGS: Demonstrated are scattered senescent parenchymal change. Coarse interstitial infiltrates persist with mild improved aeration at the lung bases. The heart is stable. Hilar and mediastinal structures are within normal limits. Degenerative changes are seen of the dorsal spine. IMPRESSION: 1. Coarse interstitial infiltrates persist with mild improved aeration at the lung bases.
[2021-03-08] MEDS: ENOXAPARIN 40 MG/0.4 ML SYRINGE SQ SCH (08:20)
[2021-03-08] MEDS: CHOLECALCIFEROL 25 MCG (1000 IU) TABLET PO SCH (08:20)
[2021-03-08] MEDS: ASCORBIC ACID 500 MG TAB PO SCH (08:20)
[2021-03-08] MEDS: ZINC SULFATE 220 MG CAP PO SCH (08:21)
[2021-03-08] MEDS: DEXAMETHASONE SOD PHOSPHATE 10 MG/ML 1 ML VIAL IV SCH ×2 (08:21→20:10)
[2021-03-08] MEDS: FAMOTIDINE 20 MG TAB PO SCH ×2 (08:21→19:36)
[2021-03-08] MEDS: ALBUTEROL HFA INHALER INHALATION PRN (11:41)
[2021-03-08 11:58] LABS: Glucose,Whole Blood 175 mg/dL (75-99)
--- NOTE | 2021-03-08 13:52 | P.PN ---
Subjective Progress Note Date: 03/08/21 Principal diagnosis: Acute hypoxic respiratory failure secondary to COVID-19 pneumonia 55-year-old male patient, diagnosed having COVID-19 infection, as the patient started getting symptomatic approximately 5 days ago. He started having some fevers initially and following that he started having increased cough and shortness of breath and for that reason he came into the hospital. He was diagnosed having COVID-19 pneumonia. In the emergency department, the patient was hypoxic with pulse ox of 70% and he was short of breath. He was placed on 100% nonrebreather facemask and his pulse ox was brought up to 90%. He was hemodynamically stable. His chest x-ray showed bilateral interstitial pulmonary infiltrates most on the lower lobes although difficulties are rather diffuse. His blood work at a time of admission showed normal white cell count of 4.2 with a lymphopenia. His d-dimer is at 1.1, he had an acute kidney injury with a creatinine of 1.4 which improvement in the creatinine is down to 0.9, LDH is significantly elevated at 2539, with a CRP level of 15.4 and appropriate acetone level of 0.4. Coagulation profile is within normal limits. Blood sugar was 16 8. He also underwent a CT angiogram of the chest that showed no evidence of any pulmonary embolism. There was found to have emphysema and a background in addition to bilateral groundglass pulmonary infiltrates scattered throughout the lung hirsch bilaterally both in the upper and lower lobes. Some minimal areas of consolidation in the lung bases. The rest is essentially consistent with groundglass pulmonary infiltrates. No mediastinal lymphadenopathy. No pulmonary embolism. 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 He was in [place] on his last trip, he started getting symptomatic approximately 5 days ago. He was in [place] and [place] the week prior. It, the patient's oxidation got worse and the patient was placed on high flow oxygen and currently is on 60 L of oxygen by nasal cannula with a 90% FiO2 and a nonrebreather facemask. He is currently on Decadron 6 mg by mouth on a daily basis and the patient is also on Lovenox 40 mg subcu daily. Comorbid conditions include COPD and hypertension. 69 was quite dehydrated as the patient was not taken oral intake and he was quite intravascularly depleted with an acute kidney injury. On 03/03/2021 patient seen in follow-up in the intensive care unit, he is resting in bed on his left side, he is currently on Airvo 60 L and FiO2 of 90% and 100% nonrebreather mask and his pulse ox is 90-95%. He has 0.9 normal saline at 75 ML per hour, no other drips, he status post Tocilizumab 720 mg IV infusion yesterday on 03/02/2021. He is on Decadron 6 mg twice daily, she is on prophylactic dose of Lovenox, CTA chest showed no evidence of pulmonary embolis m. Today's d-dimer is 1.16, LDH is 2590, and CRP is 4.6. Clinically patient states he is breathing easier, and she doesn't desaturate as low with repositioning, he has been positioning self in bed, and self proning, tolerating activity well, no nausea vomiting or diarrhea, and today she states she's actually feeling hungry. Today's chest x-ray also bilateral multifocal and confluent opacities consistent with COVID-19 infection stable in appearance compared to days ago. On 03/06/2021 patient seen in follow-up in the intensive care unit. He remains on high flow oxygen, per Airvo at 60 L/m, and FiO2 of 90% in addition to her percent nonrebreather mask with a pulse ox between 85-87%, he is laying on his left side, he is unable to tolerate proning. His IV fluids are infusing at 75 ML per hour, his chest x-ray today shows bilateral interstitial infiltrates that are stable in appearance. Overall seems to be in no acute distress. His labs have been reviewed showing white blood cell, 7.9, hemoglobin of 17, his sodium is 135, the rest of electrolytes were within normal limits, BUN of 29 creatinine of 0.70, AST of 41, ALT of 108, alkaline phosphatase of 109. His last d-dimer from yesterday was 2.88, and patient remains on prophylactic dose of Lovenox at 40 mg once daily, he remains on IV Decadron 6 mg daily. He is on vitamins including vitamin C, vitamin D and zinc, he is on normal saline at 75 ML per hour, his appetite has been fair, as a matter fact his been ordering takeout via [employer]. His blood pressure has been stable, his been afebrile, he is in sinus mechanism. No complaints of chest discomfort no cough. Patient was reevaluated today on 03/07/2021, remains on high flow oxygen, we are utilizing airvo at 90% FiO2 and 60 L flow he is also on a nonrebreather mask on the percent, O2 saturation is 87% at best. Patient feels better when he lays on his left side, and his saturations improved, however he desaturates significantly when he lays flat. Patient is hemodynamically stable, his IV fluid is 0.9 normal saline at 75 mL/h, he is not requiring any pressors, however his potassium was noted to be a bit high today at 5.5, and the patient will receive a dose Kayexalate. Overall the patient states that he doesn't feel too bad, coping with his profound hypoxemia and again he does not want to be on mechanical ventilation no matter what. CBC is relatively normal. Electrolytes are normal except for elevated potassium. Renal profile is normal. Chest x-ray continues to show bilateral infiltrates consistent with COVID-19 pneumonia not much of a change in the last 24 hours. Patient was reevaluated today on 03/08/2021, patient is basically about the same, no major tire changer the last 24 hours. Patient remains on relatively high FiO2 90% and 60 L flow remains on a nonrebreather mask, O2 saturations are in the high 80s clinically however the patient feels better especially when he is laying on his left side. Chest x-ray showed worsening infiltrate in the left lung significant improvement of the infiltrates in the right lung. Patient remains hemodynamically stable, not requiring any pressors. CBC is relatively normal left lites are normal renal profile is normal and again no major tire changer the last 24 hours prognosis remains extremely guarded. Objective - Vital Signs Vital signs: Vital Signs Temp 98.5 F 03/08/21 12:00 Pulse 89 03/08/21 13:00 Resp 29 H 03/08/21 13:00 BP 132/82 03/08/21 13:00 Pulse Ox 90 L 03/08/21 13:00 Intake & Output 03/07/21 03/08/21 03/08/21 18:59 06:59 18:59 Intake Total 825 1300 525 Output Total 920 1250 505 Balance -95 50 20 Weight 98 kg Intake: IV 825 900 525 Sodium Chloride 0.9% 1, 825 900 525 000 ml @ 75 mls/hr IV . [id number] [facility] Rx#:[id number] Oral 400 Output: Urine 920 1250 505 Other: Voiding Method Indwelling Catheter Indwelling Catheter Indwelling Catheter - Exam Physical Exam revealed 55-year-old white male on a relatively high FiO2 via nonrebreather mask and airvo, not in distress clinically. Head: Atraumatic, normocephalic. HEENT:[Neck is supple.] [No neck masses.] [No thyromegaly.] [No JVD.] Chest: Symmetrical expansion fine crackles at the bases no rhonchi and no wheezes.] Cardiac Exam: [Normal S1 and S2, no S3 gallop, no murmur.] Abdomen: [Soft, nontender, no megaly, no rebound, no guarding, normal bowel sounds.] Extremities: [No clubbing, no edema, no cyanosis.] Neurological Exam: [No focal neurologic deficit.] Alert and oriented 3. Psychiatric: Normal mood, affect and normal mental status examination. Skin: No rashes. Musculoskeletal: No deformities and no limitation in range of motion. - Labs CBC & Chem 7: 03/08/21 03:22 03/08/21 03:22 Labs: Abnormal Lab Results - Last 24 Hours (Table) 03/07/21 03/07/21 03/08/21 Range/Units 16:49 20:22 03:22 Neutrophils # (1.3-7.7) k/uL Lymphocytes # (1.0-4.8) k/uL D-Dimer 3.66 H (<0.60) mg/L FEU Sodium (137-145) mmol/L BUN (9-20) mg/dL Creatinine (0.66-1.25) mg/dL Glucose (74-99) mg/dL POC Glucose (mg/dL) 245 H 217 H (75-99) mg/dL ALT (4-49) U/L Total Protein (6.3-8.2) g/dL Albumin (3.5-5.0) g/dL 03/08/21 03/08/21 03/08/21 Range/Units 03:22 03:22 06:28 Neutrophils # 9.2 H (1.3-7.7) k/uL Lymphocytes # 0.3 L (1.0-4.8) k/uL D-Dimer (<0.60) mg/L FEU Sodium 136 L (137-145) mmol/L BUN 26 H (9-20) mg/dL Creatinine 0.65 L (0.66-1.25) mg/dL Glucose 226 H (74-99) mg/dL POC Glucose (mg/dL) 232 H (75-99) mg/dL ALT 66 H (4-49) U/L Total Protein 5.8 L (6.3-8.2) g/dL Albumin 3.3 L (3.5-5.0) g/dL 03/08/21 Range/Units 11:57 Neutrophils # (1.3-7.7) k/uL Lymphocytes # (1.0-4.8) k/uL D-Dimer (<0.60) mg/L FEU Sodium (137-145) mmol/L BUN (9-20) mg/dL Creatinine (0.66-1.25) mg/dL Glucose (74-99) mg/dL POC Glucose (mg/dL) 175 H (75-99) mg/dL ALT (4-49) U/L Total Protein (6.3-8.2) g/dL Albumin (3.5-5.0) g/dL Microbiology - Last 24 Hours (Table) 03/01/21 14:14 Blood Culture - Final Blood No Growth after 144 hours 03/01/21 14:14 Blood Culture - Final Blood No Growth after 144 hours Assessment and Plan Assessment: Impression: Acute hypoxic respiratory failure due to COVID-19 pneumonia his initial diagnosis was made on 03/01/2021, patient is requiring relatively high FiO2 and his O2 saturation is marginal. Patient was brought down to the ICU on 03/02 and he received a dose of toci elevated inflammatory markers secondary to above. History of underlying COPD. Acute kidney injury. Hypertension. Recommendation: Continue present supportive care measures Titrate oxygen/FiO2 accordingly. Advised to try different positions including proposition and position on the right side. Patient seems to prepare laying on his left side and he feels best in that position. Continue Lovenox. Continue Decadron. Continue DO NOT RESUSCITATE CODE STATUS. We'll continue to follow in the ICU Time with Patient: Less than 30
[2021-03-08 17:10] LABS: Glucose,Whole Blood 260 mg/dL (75-99)
[2021-03-08 19:33] LABS: Glucose,Whole Blood 195 mg/dL (75-99)
[2021-03-08] MEDS: amLODIPine 10 MG TAB PO SCH (19:36)
[2021-03-09] MEDS: MORPHINE SULFATE 2 MG/ML SYRINGE IVP PRN (02:28)
[2021-03-09] MEDS: ALPRAZolam 0.5 MG TAB PO PRN ×2 (02:28→21:06)
[2021-03-09 04:47] LABS: Basophils % (A) 0 %; Eosinophils # (A) 0.1 k/uL (0-0.7); Eosinophils % (A) 1 %; HCT 50.9 % (39.0-53.0); HGB 16.3 gm/dL (13.0-17.5); Lymphocytes # (A) 0.3 k/uL (1.0-4.8); Lymphocytes % (A) 3 %; MCH 29.2 pg (25.0-35.0); MCV 91.5 fL (80.0-100.0); Mean Platelet Volume 7.8; Monocytes # (A) 0.4 k/uL (0-1.0); Monocytes % (A) 3 %; Neutrophils # (A) 10.1 k/uL (1.3-7.7); Neutrophils % (A) 93 %; Platelet Count 299 k/uL (150-450); RBC 5.57 m/uL (4.30-5.90); RDW 14.4 % (11.5-15.5); WBC 10.8 k/uL (3.8-10.6)
[2021-03-09 05:03] LABS: ALT 60 U/L (4-49); AST 30 U/L (17-59); African American GFR (CKD) >90 (>60 ml/min/1.73 sqM); Albumin 3.4 g/dL (3.5-5.0); Alkaline Phosphatase 129 U/L (38-126); Anion Gap 9 mmol/L; Blood Urea Nitrogen 22 mg/dL (9-20); Calcium 8.8 mg/dL (8.4-10.2); Carbon Dioxide 22 mmol/L (22-30); Chloride 103 mmol/L (98-107); Glucose 261 mg/dL (74-99); Non-African American GFR(CKD) >90 (>60 ml/min/1.73 sqM); Sodium 134 mmol/L (137-145); Total Bilirubin 0.6 mg/dL (0.2-1.3); Total Protein 5.9 g/dL (6.3-8.2)
--- NOTE | 2021-03-09 06:32 | XR ---
EXAMINATION TYPE: XR chest 1V portable DATE OF EXAM: 03/09/2021 COMPARISON: 03/08/2021. HISTORY: Pneumonia TECHNIQUE: Single frontal view of the chest is obtained. FINDINGS: . There is left retrocardiac consolidation and slightly more pronounced than prior examina tion. This could represent pneumonia and/or worsening atelectasis. There may be minor interval develo pment of atelectasis at the right lung base. Increased interstitial markings involving the left lung and decreased left-sided lung volume is again demonstrated. Mediastinum is within normal limits. Hear t appears slightly prominent. There is no pleural effusion or pneumothorax. IMPRESSION: Slight worsening.
[2021-03-09 06:38] LABS: Glucose,Whole Blood 221 mg/dL (75-99)
[2021-03-09] MEDS: INSULIN ASPART (NovoLOG) 100 UNIT/ML VIAL SQ SCH ×4 (06:42→21:07)
[2021-03-09] MEDS: SODIUM CHLORIDE 0.9% 1,000 ML IV SCH ×2 (07:32→21:19)
[2021-03-09] MEDS: ASCORBIC ACID 500 MG TAB PO SCH (07:33)
[2021-03-09] MEDS: CHOLECALCIFEROL 25 MCG (1000 IU) TABLET PO SCH (07:33)
[2021-03-09] MEDS: DEXAMETHASONE SOD PHOSPHATE 10 MG/ML 1 ML VIAL IV SCH ×2 (07:33→21:06)
[2021-03-09] MEDS: ENOXAPARIN 40 MG/0.4 ML SYRINGE SQ SCH (07:33)
[2021-03-09] MEDS: ZINC SULFATE 220 MG CAP PO SCH (07:34)
[2021-03-09] MEDS: FAMOTIDINE 20 MG TAB PO SCH ×2 (07:34→21:07)
[2021-03-09] MEDS: ALBUTEROL HFA INHALER INHALATION PRN ×3 (07:39→19:51)
[2021-03-09 11:27] LABS: Glucose,Whole Blood 221 mg/dL (75-99)
--- NOTE | 2021-03-09 13:18 | P.PN ---
Subjective Progress Note Date: 03/09/21 55-year-old male patient, diagnosed having COVID-19 infection, as the patient started getting symptomatic approximately 5 days ago. He started having some fevers initially and following that he started having increased cough and shortness of breath and for that reason he came into the hospital. He was di agnosed having COVID-19 pneumonia. In the emergency department, the patient was hypoxic with pulse ox of 70% and he was short of breath. He was placed on 100% nonrebreather facemask and his pulse ox was brought up to 90%. He was hemodynamically stable. His chest x-ray showed bilateral interstitial pulmonary infiltrates most on the lower lobes although difficulties are rather diffuse. His blood work at a time of admission showed normal white cell count of 4.2 with a lymphopenia. His d-dimer is at 1.1, he had an acute kidney injury with a creatinine of 1.4 which improvement in the creatinine is down to 0.9, LDH is significantly elevated at 2539, with a CRP level of 15.4 and appropriate acetone level of 0.4. Coagulation profile is within normal limits. Blood sugar was 168. He also underwent a CT angiogram of the chest that showed no evidence of any pulmonary embolism. There was found to have emphysema and a background in addition to bilateral groundglass pulmonary infiltrates scattered throughout the lung hirsch bilaterally both in the upper and lower lobes. Some minimal areas of consolidation in the lung bases. The rest is essentially consistent with groundglass pulmonary infiltrates. No mediastinal lymphadenopathy. No pulmonary embolism. 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 He was in [place] and [place] the week prior. It, the patient's oxidation got worse and the patient was placed on high flow oxygen and currently is on 60 L of oxygen by nasal cannula with a 90% FiO2 and a nonrebreather facemask. He is currently on Decadron 6 mg by mouth on a daily basis and the patient is also on Lovenox 40 mg subcu daily. Comorbid conditions include COPD and hypertension. 70 was quite dehydrated as the patient was not taken oral intake and he was quite intravascularly depleted with an acute kidney injury. On 03/03/2021 patient seen in follow-up in the intensive care unit, he is resting in bed on his left side, he is currently on Airvo 60 L and FiO2 of 90% and 100% nonrebreather mask and his pulse ox is 90-95%. He has 0.9 normal saline at 75 ML per hour, no other drips, he status post Tocilizumab 720 mg IV infusion yesterday on 03/02/2021. He is on Decadron 6 mg twice daily, she is on prophylactic dose of Lovenox, CTA chest showed no evidence of pulmonary embolism. Today's d-dimer is 1.16, LDH is 2590, and CRP is 4.6. Clinically patient states he is breathing easier, and she doesn't desaturate as low with repositioning, he has been positioning self in bed, and self proning, tolerating activity well, no nausea vomiting or diarrhea, and today she states she's actually feeling hungry. Today's chest x-ray also bilateral multifocal and confluent opacities consistent with COVID-19 infection stable in appearance compared to days ago. On 03/06/2021 patient seen in follow-up in the intensive care unit. He remains on high flow oxygen, per Airvo at 60 L/m, and FiO2 of 90% in addition to her percent nonrebreather mask with a pulse ox between 85-87%, he is laying on his left side, he is unable to tolerate proning. His IV fluids are infusing at 75 ML per hour, his chest x-ray today shows bilateral interstitial infiltrates that are stable in appearance. Overall seems to be in no acute distress. His labs have been reviewed showing white blood cell, 7.9, hemoglobin of 17, his sodium is 135, the rest of electrolytes were within normal limits, BUN of 29 creatinine of 0.70, AST of 41, ALT of 108, alkaline phosphatase of 109. His last d-dimer from yesterday was 2.88, and patient remains on prophylactic dose of Lovenox at 40 mg once daily, he remains on IV Decadron 6 mg daily. He is on vitamins including vitamin C, vitamin D and zinc, he is on normal saline at 75 ML per hour, his appetite has been fair, as a matter fact his been ordering takeout via [employer]. His blood pressure has been stable, his been afebrile, he is in sinus mechanism. No complaints of chest discomfort no cough. On 03/09/2021 patient seen in follow-up in intensive care unit, he is currently on Airvo at 60 L and FiO2 of 90%, in addition to 100% nonrebreather mask, his pulse ox was around 86-88%, he is very short of breath even with conversation, however in no acute distress, he has been repositioning self in bed, mostly prefers to lay on the left side, his been afebrile, hemodynamically he is stable, he is in sinus mechanism, he is receiving IV fluids at 75 ML per hour, his appetite is fair, and his family has been ordering him takeout food. Today's labs have been reviewed, his white blood cell count is 10.8, hemoglobin is 16.3, his d-dimer 3.79, stable, sodium is 134, the rest of electrolytes are within normal limits, BUN is 22 creatinine 0.64. Remains on Decadron 6 mg twice daily, he remains on Lovenox 40 mg once daily. On nausea vomiting or diarrhea, no chest discomfort, no swollen or tender calves. Patient is requesting to be transferred out of intensive care unit and he would like to go home tomorrow, which we told him that he is not anywhere close to going home yet Objective - Vital Signs Vital signs: Vital Signs Temp 97.6 F 03/09/21 08:00 Pulse 92 03/09/21 11:00 Resp 28 H 03/09/21 11:00 BP 123/77 03/09/21 11:00 Pulse Ox 88 L 03/09/21 11:00 Intake & Output 03/08/21 03/09/21 03/09/21 18:59 06:59 18:59 Intake Total 900 1305 450 Output Total 1215 1205 700 Balance -315 100 -250 Intake: IV 900 825 450 Sodium Chloride 0.9% 1, 900 825 450 000 ml @ 75 mls/hr IV . [id number] [facility] Rx#:[id number] Oral 480 Output: Urine 1215 1205 700 Other: Voiding Method Indwelling Catheter Indwelling Catheter Indwelling Catheter # Bowel Movements 1 1 - Exam GENERAL EXAM: Alert, , 55-year-old white male, laying on his left side in bed in the intensive care unit, on Airvo at 60 L and FiO2 of 90% and 100% nonrebreather mask, with pulse ox ranging between 85-89%comfortable in no apparent distress. HEAD: Normocephalic/atraumatic. EYES: Normal reaction of pupils, equal size. Conjunctiva pink, sclera white. NOSE: Clear with pink turbinates. THROAT: No erythema or exudates. NECK: No masses, no JVD, no thyroid enlargement, no adenopathy. CHEST: No chest wall deformity. Symmetrical expansion. LUNGS: Equal air entry with diminished breath sounds at the bases, no crackles, no rhonchi no wheezes CVS: Regular rate and rhythm, normal S1 and S2, no gallops, no murmurs, no rubs ABDOMEN: Soft, nontender. No hepatosplenomegaly, normal bowel sounds, no guarding or rigidity. EXTREMITIES: No clubbing, no edema, no cyanosis, 2+ pulses and upper and lower extremities. MUSCULOSKELETAL: Muscle strength and tone normal. SPINE: No scoliosis or deformity SKIN: No rashes CENTRAL NERVOUS SYSTEM: Alert and oriented -3. No focal deficits, tone is normal in all 4 extremities. PSYCHIATRIC: Alert and oriented -3. Appropriate affect. Intact judgment and insight. - Labs CBC & Chem 7: 03/09/21 04:01 03/09/21 04:01 Labs: Abnormal Lab Results - Last 24 Hours (Table) 03/08/21 03/08/21 03/09/21 Range/Units 17:09 19:32 04:01 WBC (3.8-10.6) k/uL Neutrophils # (1.3-7.7) k/uL Lymphocytes # (1.0-4.8) k/uL D-Dimer 3.79 H (<0.60) mg/L FEU Sodium (137-145) mmol/L BUN (9-20) mg/dL Creatinine (0.66-1.25) mg/dL Glucose (74-99) mg/dL POC Glucose (mg/dL) 260 H 195 H (75-99) mg/dL ALT (4-49) U/L Alkaline Phosphatase (38-126) U/L Total Protein (6.3-8.2) g/dL Albumin (3.5-5.0) g/dL 03/09/21 03/09/21 03/09/21 Range/Units 04:01 04:01 06:37 WBC 10.8 H (3.8-10.6) k/uL Neutrophils # 10.1 H (1.3-7.7) k/uL Lymphocytes # 0.3 L (1.0-4.8) k/uL D-Dimer (<0.60) mg/L FEU Sodium 134 L (137-145) mmol/L BUN 22 H (9-20) mg/dL Creatinine 0.64 L (0.66-1.25) mg/dL Glucose 261 H (74-99) mg/dL POC Glucose (mg/dL) 221 H (75-99) mg/dL ALT 60 H (4-49) U/L Alkaline Phosphatase 129 H (38-126) U/L Total Protein 5.9 L (6.3-8.2) g/dL Albumin 3.4 L (3.5-5.0) g/dL 03/09/21 Range/Units 11:16 WBC (3.8-10.6) k/uL Neutrophils # (1.3-7.7) k/uL Lymphocytes # (1.0-4.8) k/uL D-Dimer (<0.60) mg/L FEU Sodium (137-145) mmol/L BUN (9-20) mg/dL Creatinine (0.66-1.25) mg/dL Glucose (74-99) mg/dL POC Glucose (mg/dL) 221 H (75-99) mg/dL ALT (4-49) U/L Alkaline Phosphatase (38-126) U/L Total Protein (6.3-8.2) g/dL Albumin (3.5-5.0) g/dL Assessment and Plan Plan: Assessment: #1. Acute COVID-19 related pneumonia with diffuse but the pulmonary infiltrates/groundglass changes. Patient started getting symptoms approximately 5 days ago and the patient was diagnosed having COVID-19 infection on 03/01/2021 and a diagnosis was established at [facility]. He is quite hypoxic and he presented with significant shortness of breath and hypoxemia the time of admission and currently is on high flow oxygen 60 L with an FiO2 of 90% and the patient is also utilizing 100% on a beta facemasks. Transferred to the intensive care unit on 03/02/2021 and received a dose of Tocilizumab on 03/02/2021 #2. Acute hypoxic respiratory failure secondary to above #3. elevated inflammatory markers secondary to COVID-19 related infection/pneumonia #4. COPD #5. acute kidney injury, improving #6. hypertension Plan: Continue Airvo and NRB facemask to keep O2 sat saturation at 89-90% or above Today's chest x-ray has been reviewed showing slight worsening in the appearance of bilateral airspace disease Continue encouraging the patient to self prone or change positions from side to side Continue current dose Decadron Continue Lovenox, will obtain follow-up d-dimer Supplemental nutrition in the form of Ensure, and diet as tolerated Patient's oxygenation has been slow to improve, however it has not worsened either, and he has remained fairly stable over last several days He is requesting to be transferred out of intensive care unit to regular floor He can transfer out of intensive care unit to undergo medical surgical floor without telemetry Follow-up inflammatory markers, follow-up d-dimer tomorrow CODE STATUS will be updated to DO NOT RESUSCITATE We'll continue supportive treatment I performed a history & physical examination of the patient and discussed their management with my nurse practitioner, Carola Bourgeois. I reviewed the nurse practitioner's note and agree with the documented findings and plan of care. Lung sounds are positive for diminished breath sounds. The findings and the impression was discussed with the patient. I attest to the documentation by the nurse practitioner. Time with Patient: Less than 30
[2021-03-09 14:16] LABS: Glucose,Whole Blood 243 mg/dL (75-99)
[2021-03-09 17:21] LABS: Glucose,Whole Blood 283 mg/dL (75-99)
[2021-03-09 20:52] LABS: Glucose,Whole Blood 293 mg/dL (75-99)
[2021-03-09] MEDS: amLODIPine 10 MG TAB PO SCH (21:06)
--- NOTE | 2021-03-09 22:38 | P.PN ---
Subjective Progress Note Date: 03/08/21 Principal diagnosis: Acute hypoxic respiratory failure secondary to COVID-19 pneumonia Patient is a 55-year-old male with a known history of hypertension and previous history of smoking presents to ER due to worsening shortness of breath since Saturday. Patient states that he flew from [place] about 3 days ago and since then he has been having fever exertional dyspnea and cough and shortness of breath which has been worsening since then. Patient was seen at [facility] and was diagnosed with COVID-19. Patient was found to be hypoxic and was having exertional dyspnea and sent to ER. Pulse ox was in the 70s as reported. Patient was dyspneic on on admission and was placed on 100% nonrebreather at 15 L oxygen and FiO2 90%. Her oxygen saturations went up to 88 to 90%. On admission blood pressure was 151/88 respiratory rate 30 heart rate 129 and pulse ox 88% on 15 L oxygen via nonrebreather. Chest x-ray showed interval development of interstitial perihilar and basilar infiltrates compatible with COVID-19 pneumonia. CTA chest showed no evidence of PE. Multifocal and confluent groundglass opacities with lower lung organizing consolidation bilaterally consistent with COVID-19 infection EKG showed sinus tachycardia 03/02/2021 Patient is currently resting in the bed 100% nonrebreather with 90% FiO2. Patient has been afebrile. Tachycardic and tachypneic and appears to use accessory muscles. Patient is being transferred to intensive care unit. Lab oratory data showed WBC 4.2 hemoglobin 16.6 and platelets 168 D-dimer 0.97 Sodium 138 potassium 4.5 chloride 106 BUN 26 creatinine 0.92 calcium 8.3 ferritin two 293.6 CRP trending down to 8.9 and procalcitonin level was 0.4 Pulmonary is on board. 03/03/2021 Patient is currently in MICU. Awake alert and oriented. On Airvo 60 L with FiO2 90% and is saturating at 90%. Patient is being cannula dexamethasone 6 mg twice daily and Lovenox. Patient received 1 dose of Tocilizumab on 03/02/2021. Laboratory data showed BUN 28 creatinine 0.76, D-dimer 1.16, CRP 4.6 and LDH 2.90. Patient is being monitored in the ICU. Pulmonary is on board. Denied any complaints of chest pain. Tolerating oral diet. No nausea vomiting or abdominal pain or diarrhea. 03/04/2021. Patient is currently in MICU. Requiring 60 L oxygen with FiO2 90%. Patient is getting prone ventilation. Chest x-ray showed diffuse mild nonspecific infiltrate can be compatible with atypical pneumonia. Laboratory pressure WBC 5.9 hemoglobin 16.4 platelets 231 lymphocytes 0.4 D- dimer 1.27 BUN 26 and creatinine 0.77 potassium 5.0 sodium 139 LDH 2574 and CRP 2.5 patient is afebrile. Remains dexamethasone IV 6 mg twice daily and Lovenox 40 mg subcu daily. Also on IV hydration with normal saline at 75 cc/h. Critical care team is on board. 03/05/2021 Patient remains in MICU. Awake and alert. Currently requiring 60 L oxygen with FiO2 90%. Pulse ox around 90% to 89%. Patient has been afebrile. Chest x-ray showed diffuse scattered increased lung markings can be compatible with atypical pneumonia. Mild cardiomegaly. Laboratory data showed D-dimer 2.88, LDH 2465 and CRP 1.9. Blood sugar is controlled. Patient is being continued dexamethasone 6 mg IV twice daily and Lovenox and multivitamins and IV hydration with normal saline at 75 cc/h. Pulmonary is on board. 03/06/2021 Patient is currently in MICU. Remains high flow oxygen with 100% nonrebreather intermittently and Airvo 60 L with FiO2 90% patient is a study yet upper 80s. Chest x-ray showed bilateral infiltrates that are stable in appearance. Patient is resting in the bed awake alert and oriented. Laboratory data showed WBC 7.9 hemoglobin 17, sodium 135, BUN 20 and creatinine 0.7 D-dimer was 2.88. Patient is on Lovenox, IV dexamethasone 6 mg daily and multi vitamins. Continue IV hydration. 03/07/2021 Patient is currently resting in the bed. Requiring high flow oxygen 60 L with FiO2 90% and saturating at 90%. Awake alert and oriented. No complaints of chest pain. Chest x-ray showed bilateral infiltrates are stable. Patient is getting IV hydration with normal saline at 75 cc/h. Continued on dexamethasone 6 mg IV twice daily, Lovenox 40 mg subcu daily. Continue on multivitamins. Blood pressure is stable. Patient is tachypneic and mildly tachycardic. Afebrile. No complaints of nausea or vomiting abdominal pain or diarrhea. Lab data showed sodium 136 potassium 5.5 BUN 25 and creatinine 0.67 blood sugar 187 LDH 1831, CRP 0.8 AST 39 ALT 85. Pulmonary is on board. 03/08/2021 Patient is in the MICU. Awake alert and oriented. Remains on high flow oxygen at 60 L with 90% FiO2 and is saturating at upper 80s. Denied any complaints of chest pain or worsening breathing status. Chest x-ray showed coarse interstitial infiltrates persist with mild improved aeration at the lung bases. Patient has been afebrile. Laboratory data showed WBC 10.1 hemoglobin 16.8 and platelets 281 and lymphocytes 0.3 D-dimer 3.66 Sodium 136 potassium 4.8 BUN 26 and creatinine 0.65 and blood sugar is 226 patient is being continued on dexamethasone and Lovenox and multivitamins and breathing treatments. Current medications reviewed.On Objective - Vital Signs Vital signs: Vital Signs Temp 98 F 03/08/21 20:00 Pulse 98 03/08/21 21:00 Resp 46 H 03/08/21 21:00 BP 119/70 03/08/21 21:00 Pulse Ox 89 L 03/08/21 21:00 Intake & Output 03/08/21 03/08/21 03/09/21 06:59 18:59 06:59 Intake Total 1300 900 150 Output Total 1250 1215 355 Balance 50 -315 -205 Intake: IV 900 900 150 Sodium Chloride 0.9% 1, 900 900 150 000 ml @ 75 mls/hr IV . [id number] [facility] Rx#:[id number] Oral 400 Output: Urine 1250 1215 355 Other: Voiding Method Indwelling Catheter Indwelling Catheter Indwelling Catheter # Bowel Movements 1 - Exam PHYSICAL EXAMINATION: Patient is lying in the bed comfortably, appears to be in mild distress, awake alert and oriented.. HEENT: Normocephalic. Neck is supple. Pupils reactive. Nostrils clear. Oral cavity is moist. Ears reveal no drainage. Neck reveals no JVD, carotid bruits, or thyromegaly. CHEST EXAMINATION: Trachea is central. Symmetrical expansion. Bilateral coarse breath sounds. No wheezing or rhonchi.. CARDIAC: Normal S1, S2 with no gallops. No murmurs ABDOMEN: Soft. Bowel sounds normal. No organomegaly. No abdominal bruits. Extremities: reveal no edema. No clubbing or cyanosis Neurologically awake, alert, oriented x3 with well-coordinated movements. No focal deficits noted Skin: No rash or skin lesions. Psychiatric: Coperative. Nonsuicidal Musculoskeletal: No joint swelling or deformity. Normal range of motion. - Labs CBC & Chem 7: 03/09/21 04:01 03/09/21 04:01 Labs: Abnormal Lab Results - Last 24 Hours (Table) 03/08/21 03/08/21 03/08/21 Range/Units 03:22 03:22 03:22 Neutrophils # 9.2 H (1.3-7.7) k/uL Lymphocytes # 0.3 L (1.0-4.8) k/uL D-Dimer 3.66 H (<0.60) mg/L FEU Sodium 136 L (137-145) mmol/L BUN 26 H (9-20) mg/dL Creatinine 0.65 L (0.66-1.25) mg/dL Glucose 226 H (74-99) mg/dL POC Glucose (mg/dL) (75-99) mg/dL ALT 66 H (4-49) U/L Total Protein 5.8 L (6.3-8.2) g/dL Albumin 3.3 L (3.5-5.0) g/dL 03/08/21 03/08/21 03/08/21 Range/Units 06:28 11:57 17:09 Neutrophils # (1.3-7.7) k/uL Lymphocytes # (1.0-4.8) k/uL D-Dimer (<0.60) mg/L FEU Sodium (137-145) mmol/L BUN (9-20) mg/dL Creatinine (0.66-1.25) mg/dL Glucose (74-99) mg/dL POC Glucose (mg/dL) 232 H 175 H 260 H (75-99) mg/dL ALT (4-49) U/L Total Protein (6.3-8.2) g/dL Albumin (3.5-5.0) g/dL 03/08/21 Range/Units 19:32 Neutrophils # (1.3-7.7) k/uL Lymphocytes # (1.0-4.8) k/uL D-Dimer (<0.60) mg/L FEU Sodium (137-145) mmol/L BUN (9-20) mg/dL Creatinine (0.66-1.25) mg/dL Glucose (74-99) mg/dL POC Glucose (mg/dL) 195 H (75-99) mg/dL ALT (4-49) U/L Total Protein (6.3-8.2) g/dL Albumin (3.5-5.0) g/dL Assessment and Plan Assessment: Acute hypoxic respiratory failure secondary to COVID-19 pneumonia. on Airvo 60L fio2 90% Acute COVID-19 pneumonia with multifocal groundglass opacities with lower lung organizing consolidation. Elevated D-dimer level with no evidence of PE on CTA chest Lactic acidosis secondary to hypoxia improved now Leukopenia Acute kidney injury with creatinine 1.42 Elevated inflammatory markers Hypertension DVT prophylaxis Lovenox. Plan: Patient will be continued on oxygen supplementation at 15 L via nonrebreather intermittently and Air vo 60L with 90% Fio2. continue on dexamethasone 6 mg daily--> BID, Lovenox 40 mg subcu daily and breathing treatments . Patient was given a dose of Tocilizumab on 03/02/2021 Continue to monitor the patient in MICU. Continue with multivitamins and follow-up closely. Pulmonary will be consulted and further recommendations based on clinical course. Prognosis guarded at this time. Time with Patient: Greater than 30
--- NOTE | 2021-03-09 22:41 | P.PN ---
Subjective Progress Note Date: 03/09/21 Principal diagnosis: Acute hypoxic respiratory failure secondary to COVID-19 pneumonia Patient is a 55-year-old male with a known history of hypertension and previous history of smoking presents to ER due to worsening shortness of breath since Saturday. Patient states that he flew from [place] about 3 days ago and since then he has been having fever exertional dyspnea and cough and shortness of breath which has been worsening since then. Patient was seen [facility] and was diagnosed with COVID-19. Patient was found to be hypoxic and was having exertional dyspnea and sent to ER. Pulse ox was in the 70s as reported. Patient was dyspneic on on admission and was placed on 100% nonrebreather at 15 L oxygen and FiO2 90%. Her oxygen saturations went up to 88 to 90%. On admission blood pressure was 151/88 respiratory rate 30 heart rate 129 and pulse ox 88% on 15 L oxygen via nonrebreather. Chest x-ray showed interval development of interstitial perihilar and basilar infiltrates compatible with COVID-19 pneumonia. CTA chest showed no evidence of PE. Multifocal and confluent groundglass opacities with lower lung organizing consolidation bilaterally consistent with COVID-19 infection EKG showed sinus tachycardia 03/02/2021 Patient is currently resting in the bed 100% nonrebreather with 90% FiO2. Patient has been afebrile. Tachycardic and tachypneic and appears to use accessory muscles. Patient is being transferred to intensive care unit. Lab oratory data showed WBC 4.2 hemoglobin 16.6 and platelets 168 D-dimer 0.97 Sodium 138 potassium 4.5 chloride 106 BUN 26 creatinine 0.92 calcium 8.3 ferritin two 293.6 CRP trending down to 8.9 and procalcitonin level was 0.4 Pulmonary is on board. 03/03/2021 Patient is currently in MICU. Awake alert and oriented. On Airvo 60 L with FiO2 90% and is saturating at 90%. Patient is being cannula dexamethasone 6 mg twice daily and Lovenox. Patient received 1 dose of Tocilizumab on 03/02/2021. Laboratory data showed BUN 28 creatinine 0.76, D-dimer 1.16, CRP 4.6 and LDH 2.90. Patient is being monitored in the ICU. Pulmonary is on board. Denied any complaints of chest pain. Tolerating oral diet. No nausea vomiting or abdominal pain or diarrhea. 03/04/2021. Patient is currently in MICU. Requiring 60 L oxygen with FiO2 90%. Patient is getting prone ventilation. Chest x-ray showed diffuse mild nonspecific infiltrate can be compatible with atypical pneumonia. Laboratory pressure WBC 5.9 hemoglobin 16.4 platelets 231 lymphocytes 0.4 D- dimer 1.27 BUN 26 and creatinine 0.77 potassium 5.0 sodium 139 LDH 2574 and CRP 2.5 patient is afebrile. Remains dexamethasone IV 6 mg twice daily and Lovenox 40 mg subcu daily. Also on IV hydration with normal saline at 75 cc/h. Critical care team is on board. 03/05/2021 Patient remains in MICU. Awake and alert. Currently requiring 60 L oxygen with FiO2 90%. Pulse ox around 90% to 89%. Patient has been afebrile. Chest x-ray showed diffuse scattered increased lung markings can be compatible with atypical pneumonia. Mild cardiomegaly. Laboratory data showed D-dimer 2.88, LDH 2465 and CRP 1.9. Blood sugar is controlled. Patient is being continued dexamethasone 6 mg IV twice daily and Lovenox and multivitamins and IV hydration with normal saline at 75 cc/h. Pulmonary is on board. 03/06/2021 Patient is currently in MICU. Remains high flow oxygen with 100% nonrebreather intermittently and Airvo 60 L with FiO2 90% patient is a study yet upper 80s. Chest x-ray showed bilateral infiltrates that are stable in appearance. Patient is resting in the bed awake alert and oriented. Laboratory data showed WBC 7.9 hemoglobin 17, sodium 135, BUN 20 and creatinine 0.7 D-dimer was 2.88. Patient is on Lovenox, IV dexamethasone 6 mg daily and multi vitamins. Continue IV hydration. 03/07/2021 Patient is currently resting in the bed. Requiring high flow oxygen 60 L with FiO2 90% and saturating at 90%. Awake alert and oriented. No complaints of chest pain. Chest x-ray showed bilateral infiltrates are stable. Patient is getting IV hydration with normal saline at 75 cc/h. Continued on dexamethasone 6 mg IV twice daily, Lovenox 40 mg subcu daily. Continue on multivitamins. Blood pressure is stable. Patient is tachypneic and mildly tachycardic. Afebrile. No complaints of nausea or vomiting abdominal pain or diarrhea. Lab data showed sodium 136 potassium 5.5 BUN 25 and creatinine 0.67 blood sugar 187 LDH 1831, CRP 0.8 AST 39 ALT 85. Pulmonary is on board. 03/08/2021 Patient is in the MICU. Awake alert and oriented. Remains on high flow oxygen at 60 L with 90% FiO2 and is saturating at upper 80s. Denied any complaints of chest pain or worsening breathing status. Chest x-ray showed coarse interstitial infiltrates persist with mild improved aeration at the lung bases. Patient has been afebrile. Laboratory data showed WBC 10.1 hemoglobin 16.8 and platelets 281 and lymphocytes 0.3 D-dimer 3.66 Sodium 136 potassium 4.8 BUN 26 and creatinine 0.65 and blood sugar is 226 patient is being continued on dexamethasone and Lovenox and multivitamins and breathing treatments. 03/09/2021 Patient is transferred to medical floor from MICU. Still requiring high flow oxygen at 60 L and FiO2 90% and saturating at 90 to 91%. Denied any complaints of chest pain or worsening shortness of. Awake alert and oriented x3. Patient is being continued on dexamethasone, Lovenox which will be changed to twice daily. D-dimer is 3.79 today. Lab data showed WBC 10.8 hemoglobin 16.3 and platelets 299 BUN 22 and creatinine 0.64. Patient remains on IV hydration with normal saline at 75 cc/h. Chest x-ray showed slight worsening. Current medications reviewed.On Objective - Vital Signs Vital signs: Vital Signs Temp 99.1 F 03/09/21 18:18 Pulse 99 03/09/21 18:18 Resp 22 03/09/21 18:18 BP 121/69 03/09/21 18:18 Pulse Ox 90 L 03/09/21 18:18 Intake & Output 03/09/21 03/09/21 03/10/21 06:59 18:59 06:59 Intake Total 1305 1500 Output Total 1205 700 Balance 100 800 Weight 95.8 kg Intake: IV 825 450 Sodium Chloride 0.9% 1, 825 450 000 ml @ 75 mls/hr IV . [id number] [facility] Rx#:[id number] Intake, IV Titration 600 Amount Sodium Chloride 0.9% 1, 600 000 ml @ 75 mls/hr IV . [id number] [facility] Rx#:[id number] Oral 480 450 Output: Urine 1205 700 Other: Voiding Method Indwelling Catheter Indwelling Catheter # Voids 4 # Bowel Movements 1 1 - Exam PHYSICAL EXAMINATION: Patient is lying in the bed comfortably, appears to be in mild distress, awake alert and oriented.. HEENT: Normocephalic. Neck is supple. Pupils reactive. Nostrils clear. Oral cavity is moist. Ears reveal no drainage. Neck reveals no JVD, carotid bruits, or thyromegaly. CHEST EXAMINATION: Trachea is central. Symmetrical expansion. Bilateral coarse breath sounds. No wheezing or rhonchi.. CARDIAC: Normal S1, S2 with no gallops. No murmurs ABDOMEN: Soft. Bowel sounds normal. No organomegaly. No abdominal bruits. Extremities: reveal no edema. No clubbing or cyanosis Neurologically awake, alert, oriented x3 with well-coordinated movements. No focal deficits noted Skin: No rash or skin lesions. Psychiatric: Coperative. Nonsuicidal Musculoskeletal: No joint swelling or deformity. Normal range of motion. - Labs CBC & Chem 7: 03/09/21 04:01 03/09/21 04:01 Labs: Abnormal Lab Results - Last 24 Hours (Table) 03/09/21 03/09/21 03/09/21 Range/Units 04:01 04:01 04:01 WBC 10.8 H (3.8-10.6) k/uL Neutrophils # 10.1 H (1.3-7.7) k/uL Lymphocytes # 0.3 L (1.0-4.8) k/uL D-Dimer 3.79 H (<0.60) mg/L FEU Sodium 134 L (137-145) mmol/L BUN 22 H (9-20) mg/dL Creatinine 0.64 L (0.66-1.25) mg/dL Glucose 261 H (74-99) mg/dL POC Glucose (mg/dL) (75-99) mg/dL ALT 60 H (4-49) U/L Alkaline Phosphatase 129 H (38-126) U/L Total Protein 5.9 L (6.3-8.2) g/dL Albumin 3.4 L (3.5-5.0) g/dL 03/09/21 03/09/21 03/09/21 Range/Units 06:37 11:16 14:14 WBC (3.8-10.6) k/uL Neutrophils # (1.3-7.7) k/uL Lymphocytes # (1.0-4.8) k/uL D-Dimer (<0.60) mg/L FEU Sodium (137-145) mmol/L BUN (9-20) mg/dL Creatinine (0.66-1.25) mg/dL Glucose (74-99) mg/dL POC Glucose (mg/dL) 221 H 221 H 243 H (75-99) mg/dL ALT (4-49) U/L Alkaline Phosphatase (38-126) U/L Total Protein (6.3-8.2) g/dL Albumin (3.5-5.0) g/dL 03/09/21 03/09/21 Range/Units 17:19 20:51 WBC (3.8-10.6) k/uL Neutrophils # (1.3-7.7) k/uL Lymphocytes # (1.0-4.8) k/uL D-Dimer (<0.60) mg/L FEU Sodium (137-145) mmol/L BUN (9-20) mg/dL Creatinine (0.66-1.25) mg/dL Glucose (74-99) mg/dL POC Glucose (mg/dL) 283 H 293 H (75-99) mg/dL ALT (4-49) U/L Alkaline Phosphatase (38-126) U/L Total Protein (6.3-8.2) g/dL Albumin (3.5-5.0) g/dL Assessment and Plan Assessment: Acute hypoxic respiratory failure secondary to COVID-19 pneumonia. on Airvo 60L fio2 90% Acute COVID-19 pneumonia with multifocal groundglass opacities with lower lung organizing consolidation. Elevated D-dimer level with no evidence of PE on CTA chest Lactic acidosis secondary to hypoxia improved now Leukopenia Acute kidney injury with creatinine 1.42 on admission. improved. Elevated inflammatory markers Hypertension DVT prophylaxis Lovenox. Plan: Patient will be continued on oxygen supplementation at 15 L via nonrebreather intermittently and Air vo 60L with 90% Fio2. continue on dexamethasone 6 mg daily--> BID, Lovenox 40 mg subcu daily-- >BID and breathing treatments . Patient was given a dose of Tocilizumab on 03/02/2021 Continue with multivitamins and follow-up closely. Pulmonary will be consulted and further recommendations based on clinical course. Prognosis guarded at this time. Time with Patient: Greater than 30
[2021-03-10 07:16] LABS: Glucose,Whole Blood 194 mg/dL (75-99)
[2021-03-10] MEDS: ALBUTEROL HFA INHALER INHALATION PRN ×3 (08:13→21:08)
[2021-03-10] MEDS: INSULIN ASPART (NovoLOG) 100 UNIT/ML VIAL SQ SCH ×4 (08:21→21:01)
[2021-03-10] MEDS: CHOLECALCIFEROL 25 MCG (1000 IU) TABLET PO SCH (08:22)
[2021-03-10] MEDS: ZINC SULFATE 220 MG CAP PO SCH (08:22)
[2021-03-10] MEDS: FAMOTIDINE 20 MG TAB PO SCH ×2 (08:22→20:30)
[2021-03-10] MEDS: ASCORBIC ACID 500 MG TAB PO SCH (08:22)
[2021-03-10] MEDS: DEXAMETHASONE SOD PHOSPHATE 10 MG/ML 1 ML VIAL IV SCH (08:23)
[2021-03-10] MEDS ORDERED: ENOXAPARIN 40 MG/0.4 ML SYRINGE SQ SCH (09:00)
[2021-03-10] MEDS: SODIUM CHLORIDE 0.9% 1,000 ML IV SCH (10:51)
[2021-03-10 11:33] LABS: Glucose,Whole Blood 205 mg/dL (75-99)
[2021-03-10 12:59] LABS: African American GFR (CKD) 122.3 (60.0-200.0); BUN/Creat Ratio 38.57 Ratio (12.00-20.00); C Reactive Protein <0.4 mg/dL (0.0-0.8); Calcium 8.6 mg/dL (8.7-10.3); Carbon Dioxide 22.8 mmol/L (21.6-31.8); Chloride 102 mmol/L (96-109); Glucose 200 mg/dL (70-110); LDH 832 U/L (120-246); Non-African American GFR(CKD) 105.5 (60.0-200.0); Potassium 4.7 mmol/L (3.5-5.5); Sodium 135 mmol/L (135-145)
--- NOTE | 2021-03-10 13:47 | P.PN ---
Subjective Progress Note Date: 03/10/21 Principal diagnosis: COVID-19 pneumonia 55-year-old male patient, diagnosed having COVID-19 infection, as the patient started getting symptomatic approximately 5 days ago. He started having some fevers initially and following that he started having increased cough and shortness of breath and for that reason he came into the hospital. He was diagnosed having COVID-19 pneumonia. In the emergency department, the patient was hypoxic with pulse ox of 70% and he was short of breath. He was placed on 100% nonrebreather facemask and his pulse ox was brought up to 90%. He was hemodynamically stable. His chest x-ray showed bilateral interstitial pulmonary infiltrates most on the lower lobes although difficulties are rather diffuse. His blood work at a time of admission showed normal white cell count of 4.2 with a lymphopenia. His d-dimer is at 1.1, he had an acute kidney injury with a creatinine of 1.4 which improvement in the creatinine is down to 0.9, LDH is significantly elevated at 2539, with a CRP level of 15.4 and appropriate acetone level of 0.4. Coagulation profile is within normal limits. Blood sugar was 168. He also underwent a CT angiogram of the chest that showed no evidence of any pulmonary embolism. There was found to have emphysema and a background in addition to bilateral groundglass pulmonary infiltrates scattered throughout the lung hirsch bilaterally both in the upper and lower lobes. Some minimal areas of consolidation in the lung bases. The rest is essentially consistent with groundglass pulmonary infiltrates. No mediastinal lymphadenopathy. No pulmonary embolism. 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 He was in [place] on his last trip, he started getting symptomatic approximately 5 days ago. He was in [place] and [place] the week prior. It, the patient's oxidation got worse and the patient was placed on high flow oxygen and currently is on 60 L of oxygen by nasal cannula with a 90% FiO2 and a nonrebreather facemask. He is currently on Decadron 6 mg by mouth on a daily basis and the patient is also on Lovenox 40 mg subcu daily. Comorbid conditions include COPD and hypertension. 69 was quite dehydrated as the patient was not taken oral intake and he was quite intravascularly depleted with an acute kidney injury. On 03/03/2021 patient seen in follow-up in the intensive care unit, he is resting in bed on his left side, he is currently on Airvo 60 L and FiO2 of 90% and 100% nonrebreather mask and his pulse ox is 90-95%. He has 0.9 normal saline at 75 ML per hour, no other drips, he status post Tocilizumab 720 mg IV infusion yesterday on 03/02/2021. He is on Decadron 6 mg twice daily, she is on prophylactic dose of Lovenox, CTA chest showed no evidence of pulmonary embolism. Today's d-dimer is 1.16, LDH is 2590, and CRP is 4.6. Clinically patient states he is breathing easier, and she doesn't desaturate as low with repositioning, he has been positioning self in bed, and self proning, tolerating activity well, no nausea vomiting or diarrhea, and today she states she's actually feeling hungry. Today's chest x-ray also bilateral multifocal and confluent opacities consistent with COVID-19 infection stable in appearance compared to days ago. On 03/06/2021 patient seen in follow-up in the intensive care unit. He remains on high flow oxygen, per Airvo at 60 L/m, and FiO2 of 90% in addition to her percent nonrebreather mask with a pulse ox between 85-87%, he is laying on his left side, he is unable to tolerate proning. His IV fluids are infusing at 75 ML per hour, his chest x-ray today shows bilateral interstitial infiltrates that are stable in appearance. Overall seems to be in no acute distress. His labs have been reviewed showing white blood cell, 7.9, hemoglobin of 17, his sodium is 135, the rest of electrolytes were within normal limits, BUN of 29 creatinine of 0.70, AST of 41, ALT of 108, alkaline phosphatase of 109. His last d-dimer from yesterday was 2.88, and patient remains on prophylactic dose of Lovenox at 40 mg once daily, he remains on IV Decadron 6 mg daily. He is on vitamins including vitamin C, vitamin D and zinc, he is on normal saline at 75 ML per hour, his appetite has been fair, as a matter fact his been ordering takeout via [employer]. His blood pressure has been stable, his been afebrile, he is in sinus mechanism. No complaints of chest discomfort no cough. On 03/09/2021 patient seen in follow-up in intensive care unit, he is currently on Airvo at 60 L and FiO2 of 90%, in addition to 100% nonrebreather mask, his pulse ox was around 86-88%, he is very short of breath even with conversation, however in no acute distress, he has been repositioning self in bed, mostly prefers to lay on the left side, his been afebrile, hemodynamically he is stable, he is in sinus mechanism, he is receiving IV fluids at 75 ML per hour, his appetite is fair, and his family has been ordering him takeout food. Today's labs have been reviewed, his white blood cell count is 10.8, hemoglobin is 16.3, his d-dimer 3.79, stable, sodium is 134, the rest of electrolytes are within normal limits, BUN is 22 creatinine 0.64. Remains on Decadron 6 mg twice daily, he remains on Lovenox 40 mg once daily. On nausea vomiting or diarrhea, no chest discomfort, no swollen or tender calves. Patient is requesting to be transferred out of intensive care unit and he would like to go home tomorrow, which we told him that he is not anywhere close to going home yet The patient is seen today February 28 12/05/2020 in follow-up on the regular medical floor. He is currently resting fairly comfortably in bed. Awake and alert in no acute distress. He is still requiring AirVo high flow oxygen at 60 L and 90% FiO2 plus a nonrebreather mask to maintain O2 saturations in the low 90s. Curre ntly afebrile. Hemodynamically stable. Blood cultures reveal no growth. D- dimer up to 5.12. Sodium 135. Potassium 4.7. Creatinine 0.7. Glucose 200. LDH 832. C-reactive protein less than 0.4. He remains on Decadron, Lovenox, vitamin supplements. Objective - Vital Signs Vital signs: Vital Signs Temp 97.9 F 03/10/21 13:16 Pulse 103 H 03/10/21 13:16 Resp 22 03/10/21 13:16 BP 117/74 03/10/21 13:16 Pulse Ox 92 L 03/10/21 13:16 Intake & Output 03/09/21 03/10/21 03/10/21 18:59 06:59 18:59 Intake Total 1500 Output Total 700 1300 Balance 800 -1300 Weight 95.8 kg Intake: IV 450 Sodium Chloride 0.9% 1, 450 000 ml @ 75 mls/hr IV . [id number] ELENA Rx#:[id number] Intake, IV Titration 600 Amount Sodium Chloride 0.9% 1, 600 000 ml @ 75 mls/hr IV . [id number] ELENA Rx#:[id number] Oral 450 Output: Urine 700 1300 Other: Voiding Method Indwelling Catheter Indwelling Catheter Indwelling Catheter # Voids 4 # Bowel Movements 1 - Exam GENERAL EXAM: Alert, pleasant 55-year-old gentleman, on AirVo high flow oxygen at 60 L and 90% FiO2 plus a nonrebreather mask, fairly comfortable in no apparent distress. HEAD: Normocephalic. EYES: Normal reaction of pupils, equal size. NOSE: Clear with pink turbinates. THROAT: No erythema or exudates. NECK: No masses, no JVD. CHEST: No chest wall deformity. LUNGS: Equal air entry with coarse crackles in the bilateral posterior bases. CVS: S1 and S2 normal with no audible murmur, regular rhythm. ABDOMEN: No hepatosplenomegaly, normal bowel sounds, no guarding or rigidity. SPINE: No scoliosis or deformity SKIN: No rashes CENTRAL NERVOUS SYSTEM: No focal deficits, tone is normal in all 4 extremities. EXTREMITIES: There is no peripheral edema. No clubbing, no cyanosis. Peripheral pulses are intact. - Labs CBC & Chem 7: 03/09/21 04:01 03/10/21 06:34 Labs: Abnormal Lab Results - Last 24 Hours (Table) 03/09/21 03/09/21 03/09/21 Range/Units 14:14 17:19 20:51 D-Dimer (<0.60) mg/L FEU BUN/Creatinine Ratio (12.00-20.00) Ratio Glucose (70-110) mg/dL POC Glucose (mg/dL) 243 H 283 H 293 H (75-99) mg/dL Calcium (8.7-10.3) mg/dL Lactate Dehydrogenase (120-246) U/L 03/10/21 03/10/21 03/10/21 Range/Units 06:34 06:34 07:14 D-Dimer 5.12 H (<0.60) mg/L FEU BUN/Creatinine Ratio 38.57 H (12.00-20.00) Ratio Glucose 200 H (70-110) mg/dL POC Glucose (mg/dL) 194 H (75-99) mg/dL Calcium 8.6 L (8.7-10.3) mg/dL Lactate Dehydrogenase 832 H (120-246) U/L 03/10/21 Range/Units 11:31 D-Dimer (<0.60) mg/L FEU BUN/Creatinine Ratio (12.00-20.00) Ratio Glucose (70-110) mg/dL POC Glucose (mg/dL) 205 H (75-99) mg/dL Calcium (8.7-10.3) mg/dL Lactate Dehydrogenase (120-246) U/L Assessment and Plan Assessment: 1 Acute COVID-19 related pneumonia with diffuse but the pulmonary i nfiltrates/groundglass changes. Patient started getting symptoms approximately 5 days ago and the patient was diagnosed having COVID-19 infection on 03/01/2021 and a diagnosis was established at [facility]. He is quite hypoxic and he presented with significant shortness of breath and hypoxemia the time of admission and currently is on high flow oxygen 60 L with an FiO2 of 90% and the patient is also utilizing 100% on a nonrebreather facemask. Transferred to the intensive care unit on 03/02/2021 and received a dose of Tocilizumab on 03/02/2021 2 Acute hypoxic respiratory failure secondary to above 3 Elevated inflammatory markers secondary to COVID-19 related infection/pneumonia 4 COPD 5 Acute kidney injury, recovered, creatinine 0.7 6 Hypertension Plan: The patient was seen and evaluated by Dr. Alcaraz Increase Lovenox to 45 mg subcu twice a day Discontinue Decadron Initiate Solu-Medrol 60 mg every 6 hours Titrate the FiO2 as tolerated Follow-up chest x-ray and labs in a.m. Overall condition remains quite guarded DO NOT RESUSCITATE/DO NOT INTUBATE CODE STATUS per patient request We will continue to follow and make further recommendations based on his clinical status I, the cosigning physician, performed a history & physical examination of the patient. Lungs sounds are coarse crackles in the bilateral bases. Maintaining good O2 saturations in the 90s on AirVo 60 L and 90% FiO2 plus a nonrebreather mask. I discussed the assessment and plan of care with my nurse practitioner, Ann Gomes. I attest to the above note as dictated by her.
[2021-03-10] MEDS: methylPREDNISolone SOD SUCCI 125 MG/2 ML VIAL IV SCH ×2 (14:09→17:39)
[2021-03-10 16:23] LABS: Glucose,Whole Blood 213 mg/dL (75-99)
--- NOTE | 2021-03-10 17:22 | P.PN ---
Subjective Progress Note Date: 03/10/21 Principal diagnosis: Acute hypoxic respiratory failure secondary to COVID-19 pneumonia. on Airvo 60L fio2 90% Acute COVID-19 pneumonia with multifocal groundglass opacities with lower lung organizing consolidation. Elevated D-dimer level with no evidence of PE on CTA chest Lactic acidosis secondary to hypoxia 55-year-old male with a known history of hypertension and previous history of smoking presents to ER due to worsening shortness of breath since Saturday. Patient states that he flew from [place] about 3 days ago and since then he has been having fever exertional dyspnea and cough and shortness of breath which has been worsening since then. Patient was seen at outpatient clinic today and was diagnosed with COVID-19. Patient was found to be hypoxic and was having exertional dyspnea and sent to ER. Pulse ox was in the 70s as reported. Irasema taylor was dyspneic on on admission and was placed on 100% nonrebreather at 15 L oxygen and FiO2 90%. Her oxygen saturations went up to 88 to 90%. On admission blood pressure was 151/88 respiratory rate 30 heart rate 129 and pulse ox 88% on 15 L oxygen via nonrebreather. Chest x-ray showed interval development of interstitial perihilar and basilar infiltrates compatible with COVID-19 pneumonia. CTA chest showed no evidence of PE. Multifocal and confluent groundglass opacities with lower lung organizing consolidation bilaterally consistent with COVID-19 infection EKG showed sinus tachycardia 03/10/2021 Patient is seen and evaluated in follow-up on the regular medical floor. He is currently resting fairly comfortably in bed. Awake and alert in no acute distress. He is still requiring AirVo high flow oxygen at 60 L and 90% FiO2 plus a nonrebreather mask to maintain O2 saturations in the low 90s. Currently afebrile. Hemodynamically stable. Blood cultures reveal no growth. D-dimer up to 5.12. Sodium 135. Potassium 4.7. Creatinine 0.7. Glucose 200. LDH 832. C-reactive protein less than 0.4. He remains on Decadron, Lovenox, vitamin supplements. Pulmonary on board and recommending to increase Lovenox to 45 mg subcu twice a day; Decadron switched to IV Solu-Medrol 60 mg every 6 hours; continue to titrate FiO2 as able Repeat chest x-ray tomorrow morning; CODE STATUS has been changed to DO NOT RESUSCITATE/DO NOT INTUBATE per patient and family request Objective - Vital Signs Vital signs: Vital Signs Temp 97.9 F 03/10/21 13:16 Pulse 103 H 03/10/21 13:16 Resp 22 03/10/21 13:16 BP 117/74 03/10/21 13:16 Pulse Ox 92 L 03/10/21 13:16 Intake & Output 03/09/21 03/10/21 03/10/21 18:59 06:59 18:59 Intake Total 1500 Output Total 700 1300 Balance 800 -1300 Weight 95.8 kg Intake: IV 450 Sodium Chloride 0.9% 1, 450 000 ml @ 75 mls/hr IV . [id number] ELENA Rx#:[id number] Intake, IV Titration 600 Amount Sodium Chloride 0.9% 1, 600 000 ml @ 75 mls/hr IV . [id number] ELENA Rx#:[id number] Oral 450 Output: Urine 700 1300 Other: Voiding Method Indwelling Catheter Indwelling Catheter Indwelling Catheter # Voids 4 # Bowel Movements 1 - Exam Patient is lying in the bed comfortably, appears to be in mild distress, awake alert and oriented.. HEENT: Normocephalic. Neck is supple. Pupils reactive. Nostrils clear. Oral cavity is moist. Ears reveal no drainage. Neck reveals no JVD, carotid bruits, or thyromegaly. CHEST EXAMINATION: Trachea is central. Symmetrical expansion. Bilateral coarse breath sounds. No wheezing or rhonchi.. CARDIAC: Normal S1, S2 with no gallops. No murmurs ABDOMEN: Soft. Bowel sounds normal. No organomegaly. No abdominal bruits. Extremities: reveal no edema. No clubbing or cyanosis Neurologically awake, alert, oriented x3 with well-coordinated movements. No focal deficits noted Skin: No rash or skin lesions. Psychiatric: Coperative. Nonsuicidal Musculoskeletal: No joint swelling or deformity. Normal range of motion. - Labs CBC & Chem 7: 03/09/21 04:01 03/10/21 06:34 Labs: Abnormal Lab Results - Last 24 Hours (Table) 03/09/21 03/09/21 03/09/21 Range/Units 14:14 17:19 20:51 D-Dimer (<0.60) mg/L FEU BUN/Creatinine Ratio (12.00-20.00) Ratio Glucose (70-110) mg/dL POC Glucose (mg/dL) 243 H 283 H 293 H (75-99) mg/dL Calcium (8.7-10.3) mg/dL Lactate Dehydrogenase (120-246) U/L 03/10/21 03/10/21 03/10/21 Range/Units 06:34 06:34 07:14 D-Dimer 5.12 H (<0.60) mg/L FEU BUN/Creatinine Ratio 38.57 H (12.00-20.00) Ratio Glucose 200 H (70-110) mg/dL POC Glucose (mg/dL) 194 H (75-99) mg/dL Calcium 8.6 L (8.7-10.3) mg/dL Lactate Dehydrogenase 832 H (120-246) U/L 03/10/21 Range/Units 11:31 D-Dimer (<0.60) mg/L FEU BUN/Creatinine Ratio (12.00-20.00) Ratio Glucose (70-110) mg/dL POC Glucose (mg/dL) 205 H (75-99) mg/dL Calcium (8.7-10.3) mg/dL Lactate Dehydrogenase (120-246) U/L Assessment and Plan Assessment: Acute hypoxic respiratory failure secondary to COVID-19 pneumonia. on Airvo 60L fio2 90% Acute COVID-19 pneumonia with multifocal groundglass opacities with lower lung organizing consolidation. Elevated D-dimer level with no evidence of PE on CTA chest Lactic acidosis secondary to hypoxia improved now Leukopenia Acute kidney injury with creatinine 1.42 on admission. improved. Elevated inflammatory markers Hypertension DVT prophylaxis Lovenox. Plan: Patient will be continued on oxygen supplementation at 15 L via nonrebreather intermittently and Air vo 60L with 90% Fio2. continue on dexamethasone 6 mg daily--> BID, Lovenox 40 mg subcu daily-- >BID and breathing treatments . Patient was given a dose of Tocilizumab on 03/02/2021 Continue with multivitamins and follow-up closely. Pulmonary will be consulted and further recommendations based on clinical course. Prognosis guarded at this time.
[2021-03-10] MEDS: ALPRAZolam 0.5 MG TAB PO PRN (20:30)
[2021-03-10] MEDS: amLODIPine 10 MG TAB PO SCH (20:30)
[2021-03-10] MEDS: ENOXAPARIN 60 MG/0.6 ML SYRINGE SQ SCH (20:31)
[2021-03-10 20:36] LABS: Glucose,Whole Blood 180 mg/dL (75-99)
[2021-03-11] MEDS: methylPREDNISolone SOD SUCCI 125 MG/2 ML VIAL IV SCH ×4 (00:31→17:39)
[2021-03-11] MEDS: SODIUM CHLORIDE 0.9% 1,000 ML IV SCH ×3 (04:13→20:25)
[2021-03-11 07:12] LABS: Glucose,Whole Blood 254 mg/dL (75-99)
--- NOTE | 2021-03-11 07:23 | XR ---
EXAMINATION TYPE: XR chest 1V portable DATE OF EXAM: 03/11/2021 COMPARISON: 03/09/2021 HISTORY: Shortness of breath TECHNIQUE: Single frontal view of the chest is obtained. FINDINGS: Basilar infiltrates with diffuse interstitial pattern stable. Heart size unchanged. No pne umothorax. Hyperinflation of lungs. Osseous structures stable. IMPRESSION: Diffuse interstitial and alveolar infiltrate stable. Correlate for underlying COPD.
[2021-03-11] MEDS: CHOLECALCIFEROL 25 MCG (1000 IU) TABLET PO SCH (08:11)
[2021-03-11] MEDS: FAMOTIDINE 20 MG TAB PO SCH ×2 (08:11→20:40)
[2021-03-11] MEDS: ASCORBIC ACID 500 MG TAB PO SCH (08:11)
[2021-03-11] MEDS: ZINC SULFATE 220 MG CAP PO SCH (08:11)
[2021-03-11] MEDS: ENOXAPARIN 60 MG/0.6 ML SYRINGE SQ SCH ×2 (08:11→20:41)
[2021-03-11] MEDS: INSULIN ASPART (NovoLOG) 100 UNIT/ML VIAL SQ SCH ×4 (08:12→20:42)
--- NOTE | 2021-03-11 11:07 | P.PN ---
Subjective Progress Note Date: 03/11/21 Principal diagnosis: COVID-19 pneumonia 55-year-old male patient, diagnosed having COVID-19 infection, as the patient started getting symptomatic approximately 5 days ago. He started having some fevers initially and following that he started having increased cough and shortness of breath and for that reason he came into the hospital. He was diagnosed having COVID-19 pneumonia. In the emergency department, the patient was hypoxic with pulse ox of 70% and he was short of breath. He was placed on 100% nonrebreather facemask and his pulse ox was brought up to 90%. He was hemodynamically stable. His chest x-ray showed bilateral interstitial pulmonary infiltrates most on the lower lobes although difficulties are rather diffuse. His blood work at a time of admission showed normal white cell count of 4.2 with a lymphopenia. His d-dimer is at 1.1, he had an acute kidney injury with a creatinine of 1.4 which improvement in the creatinine is down to 0.9, LDH is significantly elevated at 2539, with a CRP level of 15.4 and appropriate acetone level of 0.4. Coagulation profile is within normal limits. Blood sugar was 168. He also underwent a CT angiogram of the chest that showed no evidence of any pulmonary embolism. There was found to have emphysema and a background in addition to bilateral groundglass pulmonary infiltrates scattered throughout the lung hirsch bilaterally both in the upper and lower lobes. Some minimal areas of consolidation in the lung bases. The rest is essentially consistent with groundglass pulmonary infiltrates. No mediastinal lymphadenopathy. No pulmonary embolism. 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 He was in [place] on his last trip, he started getting symptomatic approximately 5 days ago. He was in [place] and [place] the week prior. It, the patient's oxidation got worse and the patient was placed on high flow oxygen and currently is on 60 L of oxygen by nasal cannula with a 90% FiO2 and a nonrebreather facemask. He is currently on Decadron 6 mg by mouth on a daily basis and the patient is also on Lovenox 40 mg subcu daily. Comorbid conditions include COPD and hypertension. 69 was quite dehydrated as the patient was not taken oral intake and he was quite intravascularly depleted with an acute kidney injury. On 03/03/2021 patient seen in follow-up in the intensive care unit, he is resting in bed on his left side, he is currently on Airvo 60 L and FiO2 of 90% and 100% nonrebreather mask and his pulse ox is 90-95%. He has 0.9 normal saline at 75 ML per hour, no other drips, he status post Tocilizumab 720 mg IV infusion yesterday on 03/02/2021. He is on Decadron 6 mg twice daily, she is on prophylactic dose of Lovenox, CTA chest showed no evidence of pulmonary embolism. Today's d-dimer is 1.16, LDH is 2590, and CRP is 4.6. Clinically patient states he is breathing easier, and she doesn't desaturate as low with repositioning, he has been positioning self in bed, and self proning, tolerating activity well, no nausea vomiting or diarrhea, and today she states she's actually feeling hungry. Today's chest x-ray also bilateral multifocal and confluent opacities consistent with COVID-19 infection stable in appearance compared to days ago. On 03/06/2021 patient seen in follow-up in the intensive care unit. He remains on high flow oxygen, per Airvo at 60 L/m, and FiO2 of 90% in addition to her percent nonrebreather mask with a pulse ox between 85-87%, he is laying on his left side, he is unable to tolerate proning. His IV fluids are infusing at 75 ML per hour, his chest x-ray today shows bilateral interstitial infiltrates that are stable in appearance. Overall seems to be in no acute distress. His labs have been reviewed showing white blood cell, 7.9, hemoglobin of 17, his sodium is 135, the rest of electrolytes were within normal limits, BUN of 29 creatinine of 0.70, AST of 41, ALT of 108, alkaline phosphatase of 109. His last d-dimer from yesterday was 2.88, and patient remains on prophylactic dose of Lovenox at 40 mg once daily, he remains on IV Decadron 6 mg daily. He is on vitamins including vitamin C, vitamin D and zinc, he is on normal saline at 75 ML per hour, his appetite has been fair, as a matter fact his been ordering takeout via [employer]. His blood pressure has been stable, his been afebrile, he is in sinus mechanism. No complaints of chest discomfort no cough. On 03/09/2021 patient seen in follow-up in intensive care unit, he is currently on Airvo at 60 L and FiO2 of 90%, in addition to 100% nonrebreather mask, his pulse ox was around 86-88%, he is very short of breath even with conversation, however in no acute distress, he has been repositioning self in bed, mostly prefers to lay on the left side, his been afebrile, hemodynamically he is stable, he is in sinus mechanism, he is receiving IV fluids at 75 ML per hour, his appetite is fair, and his family has been ordering him takeout food. Today's labs have been reviewed, his white blood cell count is 10.8, hemoglobin is 16.3, his d-dimer 3.79, stable, sodium is 134, the rest of electrolytes are within normal limits, BUN is 22 creatinine 0.64. Remains on Decadron 6 mg twice daily, he remains on Lovenox 40 mg once daily. On nausea vomiting or diarrhea, no chest discomfort, no swollen or tender calves. Patient is requesting to be transferred out of intensive care unit and he would like to go home tomorrow, which we told him that he is not anywhere close to going home yet The patient is seen today Mar 10 2021 in follow-up on the regular medical floor. He is currently resting fairly comfortably in bed. Awake and alert in no acute distress. He is still requiring AirVo high flow oxygen at 60 L and 90% FiO2 plus a nonrebreather mask to maintain O2 saturations in the low 90s. Currently afebrile. Hemodynamically stable. Blood cultures reveal no growth. D-dimer up to 5.12. Sodium 135. Potassium 4.7. Creatinine 0.7. Glucose 200. LDH 832. C-reactive protein less than 0.4. He remains on Decadron, Lovenox, vitamin supplements. The patient is seen today 03/11/2021 in follow-up on the regular medical floor. He is currently resting in bed laying on his left side which is his preferred positioning. He is still on airflow high flow oxygen at 60 L and 90% FiO2 plus a nonrebreather mask. Not making much progress. Chest x-ray continues to show diffuse interstitial alveolar infiltrates. Stable compared to previous. D- dimer 6.68. Blood glucose 254. He remains on Lovenox 45 mg subcu twice a day. Continued on vitamin supplements. IV Solu-Medrol. His appetite is good. Working with the incentive spirometer. Objective - Vital Signs Vital signs: Vital Signs Temp 98.3 F 03/11/21 10:00 Pulse 92 03/11/21 10:00 Resp 20 03/11/21 10:00 BP 116/74 03/11/21 10:00 Pulse Ox 97 03/11/21 10:00 Intake & Output 03/10/21 03/11/21 03/11/21 18:59 06:59 18:59 Output Total 450 1300 Balance -450 -1300 Output: Urine 450 1300 Other: Voiding Method Indwelling Catheter Indwelling Catheter Indwelling Catheter - Exam GENERAL EXAM: Alert, pleasant 55-year-old gentleman, on AirVo high flow oxygen at 60 L and 90% FiO2 plus a nonrebreather mask, fairly comfortable in no apparent distress. HEAD: Normocephalic. EYES: Normal reaction of pupils, equal size. NOSE: Clear with pink turbinates. THROAT: No erythema or exudates. NECK: No masses, no JVD. CHEST: No chest wall deformity. LUNGS: Equal air entry with coarse crackles in the bilateral posterior bases. CVS: S1 and S2 normal with no audible murmur, regular rhythm. ABDOMEN: No hepatosplenomegaly, normal bowel sounds, no guarding or rigidity. SPINE: No scoliosis or deformity SKIN: No rashes CENTRAL NERVOUS SYSTEM: No focal deficits, tone is normal in all 4 extremities. EXTREMITIES: There is no peripheral edema. No clubbing, no cyanosis. Peripheral pulses are intact. - Labs CBC & Chem 7: 03/09/21 04:01 03/10/21 06:34 Labs: Abnormal Lab Results - Last 24 Hours (Table) 03/10/21 03/10/21 03/10/21 Range/Units 06:34 11:31 16:20 D-Dimer (<0.60) mg/L FEU BUN/Creatinine Ratio 38.57 H (12.00-20.00) Ratio Glucose 200 H (70-110) mg/dL POC Glucose (mg/dL) 205 H 213 H (75-99) mg/dL Calcium 8.6 L (8.7-10.3) mg/dL Lactate Dehydrogenase 832 H (120-246) U/L 03/10/21 03/11/21 03/11/21 Range/Units 20:35 06:36 07:09 D-Dimer 6.68 H (<0.60) mg/L FEU BUN/Creatinine Ratio (12.00-20.00) Ratio Glucose (70-110) mg/dL POC Glucose (mg/dL) 180 H 254 H (75-99) mg/dL Calcium (8.7-10.3) mg/dL Lactate Dehydrogenase (120-246) U/L Assessment and Plan Assessment: 1 Acute COVID-19 related pneumonia with diffuse but the pulmonary infiltrates/groundglass changes. Patient started getting symptoms approximately 5 days prior to and was diagnosed having COVID-19 infection on 03/01/2021 and a diagnosis was established at [facility]. He means hypoxic and currently is on AirVo high flow oxygen 60 L with an FiO2 of 90% and the patient is also utilizing 100% on a nonrebreather facemask. Transferred to the intensive care unit on 03/02/2021 and received a dose of Tocilizumab on 03/02/2021. Now being seen on the regular medical floor 2 Acute hypoxic respiratory failure secondary to above 3 Elevated inflammatory markers secondary to COVID-19 related infection/pneumonia 4 COPD 5 Acute kidney injury, recovered, creatinine 0.7 6 Hypertension Plan: The patient was seen and evaluated by Dr. Alcaraz Chest x-ray and labs reviewed Continue Lovenox to 45 mg subcu twice a day Continue Solu-Medrol 60 mg every 6 hours Titrate the FiO2 as tolerated Increase the incentive spirometry use and encourage cough and deep breathing Increase his activity as tolerated Overall condition remains quite guarded DO NOT RESUSCITATE/DO NOT INTUBATE CODE STATUS per patient request We will continue to follow I, the cosigning physician, performed a history & physical examination of the patient. Lungs sounds are coarse crackles in the bilateral bases. Maintaining good O2 saturations in the 90s on AirVo 60 L and 90% FiO2 plus a nonrebreather mask. I discussed the assessment and plan of care with my nurse practitioner, Ann Gomes. I attest to the above note as dictated by her.
[2021-03-11 11:41] LABS: Glucose,Whole Blood 202 mg/dL (75-99)
[2021-03-11 16:33] LABS: Glucose,Whole Blood 291 mg/dL (75-99)
[2021-03-11 20:17] LABS: Glucose,Whole Blood 372 mg/dL (75-99)
[2021-03-11] MEDS: amLODIPine 10 MG TAB PO SCH (20:41)
[2021-03-11] MEDS: ALPRAZolam 0.5 MG TAB PO PRN (20:41)
[2021-03-12] MEDS: methylPREDNISolone SOD SUCCI 125 MG/2 ML VIAL IV SCH ×4 (00:01→17:13)
[2021-03-12 07:22] LABS: Glucose,Whole Blood 286 mg/dL (75-99)
[2021-03-12] MEDS: FAMOTIDINE 20 MG TAB PO SCH ×2 (07:50→21:10)
[2021-03-12] MEDS: ASCORBIC ACID 500 MG TAB PO SCH (07:50)
[2021-03-12] MEDS: ZINC SULFATE 220 MG CAP PO SCH (07:50)
[2021-03-12] MEDS: CHOLECALCIFEROL 25 MCG (1000 IU) TABLET PO SCH (07:51)
[2021-03-12] MEDS: INSULIN ASPART (NovoLOG) 100 UNIT/ML VIAL SQ SCH ×4 (07:51→21:13)
[2021-03-12] MEDS: ENOXAPARIN 60 MG/0.6 ML SYRINGE SQ SCH ×2 (07:51→21:13)
[2021-03-12] MEDS: ALBUTEROL HFA INHALER INHALATION PRN ×2 (08:26→21:16)
[2021-03-12 11:43] LABS: Glucose,Whole Blood 243 mg/dL (75-99)
--- NOTE | 2021-03-12 14:20 | P.PN ---
Subjective Progress Note Date: 03/12/21 Principal diagnosis: COVID-19 pneumonia 55-year-old male patient, diagnosed having COVID-19 infection, as the patient started getting symptomatic approximately 5 days ago. He started having some fevers initially and following that he started having increased cough and shortness of breath and for that reason he came into the hospital. He was diagnosed having COVID-19 pneumonia. In the emergency department, the patient was hypoxic with pulse ox of 70% and he was short of breath. He was placed on 100% nonrebreather facemask and his pulse ox was brought up to 90%. He was hemodynamically stable. His chest x-ray showed bilateral interstitial pulmonary infiltrates most on the lower lobes although difficulties are rather diffuse. His blood work at a time of admission showed normal white cell count of 4.2 with a lymphopenia. His d-dimer is at 1.1, he had an acute kidney injury with a creatinine of 1.4 which improvement in the creatinine is down to 0.9, LDH is significantly elevated at 2539, with a CRP level of 15.4 and appropriate acetone level of 0.4. Coagulation profile is within normal limits. Blood sugar was 168. He also underwent a CT angiogram of the chest that showed no evidence of any pulmonary embolism. There was found to have emphysema and a background in addition to bilateral groundglass pulmonary infiltrates scattered throughout the lung hirsch bilaterally both in the upper and lower lobes. Some minimal areas of consolidation in the lung bases. The rest is essentially consistent with groundglass pulmonary infiltrates. No mediastinal lymphadenopathy. No pulmonary embolism. 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 He was in [place] and [place] the week prior. It, the patient's oxidation got worse and the patient was placed on high flow oxygen and currently is on 60 L of oxygen by nasal cannula with a 90% FiO2 and a nonrebreather facemask. He is currently on Decadron 6 mg by mouth on a daily basis and the patient is also on Lovenox 40 mg subcu daily. Comorbid conditions include COPD and hypertension. 70 was quite dehydrated as the patient was not taken oral intake and he was quite intravascularly depleted with an acute kidney injury. On 03/03/2021 patient seen in follow-up in the intensive care unit, he is resting in bed on his left side, he is currently on Airvo 60 L and FiO2 of 90% and 100% nonrebreather mask and his pulse ox is 90-95%. He has 0.9 normal saline at 75 ML per hour, no other drips, he status post Tocilizumab 720 mg IV infusion yesterday on 03/02/2021. He is on Decadron 6 mg twice daily, she is on prophylactic dose of Lovenox, CTA chest showed no evidence of pulmonary embolism. Today's d-dimer is 1.16, LDH is 2590, and CRP is 4.6. Clinically patient states he is breathing easier, and she doesn't desaturate as low with repositioning, he has been positioning self in bed, and self proning, tolerating activity well, no nausea vomiting or diarrhea, and today she states she's actually feeling hungry. Today's chest x-ray also bilateral multifocal and confluent opacities consistent with COVID-19 infection stable in appearance compared to days ago. On 03/06/2021 patient seen in follow-up in the intensive care unit. He remains on high flow oxygen, per Airvo at 60 L/m, and FiO2 of 90% in addition to her percent nonrebreather mask with a pulse ox between 85-87%, he is laying on his left side, he is unable to tolerate proning. His IV fluids are infusing at 75 ML per hour, his chest x-ray today shows bilateral interstitial infiltrates that are stable in appearance. Overall seems to be in no acute distress. His labs have been reviewed showing white blood cell, 7.9, hemoglobin of 17, his sodium is 135, the rest of electrolytes were within normal limits, BUN of 29 creatinine of 0.70, AST of 41, ALT of 108, alkaline phosphatase of 109. His last d-dimer from yesterday was 2.88, and patient remains on prophylactic dose of Lovenox at 40 mg once daily, he remains on IV Decadron 6 mg daily. He is on vitamins including vitamin C, vitamin D and zinc, he is on normal saline at 75 ML per hour, his appetite has been fair, as a matter fact his been ordering takeout via [employer]. His blood pressure has been stable, his been afebrile, he is in sinus mechanism. No complaints of chest discomfort no cough. On 03/09/2021 patient seen in follow-up in intensive care unit, he is currently on Airvo at 60 L and FiO2 of 90%, in addition to 100% nonrebreather mask, his pulse ox was around 86-88%, he is very short of breath even with conversation, however in no acute distress, he has been repositioning self in bed, mostly prefers to lay on the left side, his been afebrile, hemodynamically he is stable, he is in sinus mechanism, he is receiving IV fluids at 75 ML per hour, his appetite is fair, and his family has been ordering him takeout food. Today's labs have been reviewed, his white blood cell count is 10.8, hemoglobin is 16.3, his d-dimer 3.79, stable, sodium is 134, the rest of electrolytes are within normal limits, BUN is 22 creatinine 0.64. Remains on Decadron 6 mg twice daily, he remains on Lovenox 40 mg once daily. On nausea vomiting or diarrhea, no chest discomfort, no swollen or tender calves. Patient is requesting to be transferred out of intensive care unit and he would like to go home tomorrow, which we told him that he is not anywhere close to going home yet The patient is seen today Mar 10 2021 in follow-up on the regular medical floor. He is currently resting fairly comfortably in bed. Awake and alert in no acute distress. He is still requiring AirVo high flow oxygen at 60 L and 90% FiO2 plus a nonrebreather mask to maintain O2 saturations in the low 90s. Currently afebrile. Hemodynamically stable. Blood cultures reveal no growth. D-dimer up to 5.12. Sodium 135. Potassium 4.7. Creatinine 0.7. Glucose 200. LDH 832. C-reactive protein less than 0.4. He remains on Decadron, Lovenox, vitamin supplements. The patient is seen today 03/11/2021 in follow-up on the regular medical floor. He is currently resting in bed laying on his left side which is his preferred positioning. He is still on airflow high flow oxygen at 60 L and 90% FiO2 plus a nonrebreather mask. Not making much progress. Chest x-ray continues to show diffuse interstitial alveolar infiltrates. Stable compared to previous. D- dimer 6.68. Blood glucose 254. He remains on Lovenox 45 mg subcu twice a day. Continued on vitamin supplements. IV Solu-Medrol. His appetite is good. Working with the incentive spirometer. The patient is seen today 03/12/2021 in follow-up on the regular medical floor. He is currently resting comfortably in bed. No worsening shortness of breath, cough or congestion. Still dyspneic with exertion and conversation. He is able to be turned down on the airflow to 60 L and 85% FiO2 was then nonrebreather mask. O2 saturations in the low 90s. He remains on bronchodilators, IV Solu- Medrol, vitamin supplements. Lovenox at 45 mg subcu twice a day. Appetite is good. Continues to work well with the incentive spirometer. He has been slow to progress. Objective - Vital Signs Vital signs: Vital Signs Temp 97.9 F 03/12/21 10:00 Pulse 110 H 03/12/21 10:00 Resp 20 03/12/21 10:00 BP 134/91 03/12/21 10:00 Pulse Ox 90 L 03/12/21 10:00 Intake & Output 03/11/21 03/12/21 03/12/21 18:59 06:59 18:59 Output Total 700 900 Balance -700 -900 Output: Urine 700 900 Other: Voiding Method Indwelling Catheter Indwelling Catheter Indwelling Catheter # Bowel Movements 1 - Exam GENERAL EXAM: Alert, pleasant 55-year-old gentleman, on AirVo high flow oxygen at 60 L and 85% FiO2 plus a nonrebreather mask, fairly comfortable in no apparent distress. HEAD: Normocephalic. EYES: Normal reaction of pupils, equal size. NOSE: Clear with pink turbinates. THROAT: No erythema or exudates. NECK: No masses, no JVD. CHEST: No chest wall deformity. LUNGS: Equal air entry with coarse crackles in the bilateral posterior bases. CVS: S1 and S2 normal with no audible murmur, regular rhythm. ABDOMEN: No hepatosplenomegaly, normal bowel sounds, no guarding or rigidity. SPINE: No scoliosis or deformity SKIN: No rashes CENTRAL NERVOUS SYSTEM: No focal deficits, tone is normal in all 4 extremities. EXTREMITIES: There is no peripheral edema. No clubbing, no cyanosis. Peripheral pulses are intact. - Labs CBC & Chem 7: 03/09/21 04:01 03/10/21 06:34 Labs: Abnormal Lab Results - Last 24 Hours (Table) 03/11/21 03/11/21 03/12/21 Range/Units 16:27 20:15 07:06 POC Glucose (mg/dL) 291 H 372 H 286 H (75-99) mg/dL 03/12/21 Range/Units 11:39 POC Glucose (mg/dL) 243 H (75-99) mg/dL Assessment and Plan Assessment: 1 Acute COVID-19 related pneumonia with diffuse bilateral pulmonary infiltrates/groundglass changes. Patient started getting symptoms approximately 5 days prior to and was diagnosed having COVID-19 infection on 03/01/2021 and a diagnosis was established at [facility]. He means hypoxic and currently is on AirVo high flow oxygen 60 L with an FiO2 of 85% and the patient is also utilizing 100% on a nonrebreather facemask. Received Tocilizumab on 03/02/2021. 2 Acute hypoxic respiratory failure secondary to above 3 Elevated inflammatory markers secondary to COVID-19 related infection/pneumonia 4 COPD 5 Acute kidney injury, recovered, creatinine 0.7 6 Hypertension Plan: The patient was seen and evaluated by Dr. Alcaraz Continue the current treatment plan Titrate the FiO2 as tolerated Increase the incentive spirometry use and encourage cough and deep breathing Overall condition remains quite guarded DO NOT RESUSCITATE/DO NOT INTUBATE CODE STATUS per patient request Follow-up chest x-ray and inflammatory markers in the a.m. We will continue to follow I, the cosigning physician, performed a history & physical examination of the patient. Lungs sounds are coarse crackles in the bilateral bases. Maintaining good O2 saturations in the 90s on AirVo 60 L and 85% FiO2 plus a nonrebreather mask. I discussed the assessment and plan of care with my nurse practitioner, Ann Gomes. I attest to the above note as dictated by her.
[2021-03-12 16:28] LABS: Glucose,Whole Blood 375 mg/dL (75-99)
[2021-03-12] MEDS: SODIUM CHLORIDE 0.9% 1,000 ML IV SCH (16:30)
--- NOTE | 2021-03-12 17:06 | P.PN ---
Subjective Progress Note Date: 03/11/21 Principal diagnosis: Acute hypoxic respiratory failure secondary to COVID-19 pneumonia. on Airvo 60L fio2 90% Acute COVID-19 pneumonia with multifocal groundglass opacities with lower lung organizing consolidation. Elevated D-dimer level with no evidence of PE on CTA chest Lactic acidosis secondary to hypoxia 55-year-old male with a known history of hypertension and previous history of smoking presents to ER due to worsening shortness of breath since Saturday. Patient states that he flew from [place] about 3 days ago and since then he has been having fever exertional dyspnea and cough and shortness of breath which has been worsening since then. Patient was seen at outpatient clinic today and was diagnosed with COVID-19. Patient was found to be hypoxic and was having exertional dyspnea and sent to ER. Pulse ox was in the 70s as reported. Irasema taylor was dyspneic on on admission and was placed on 100% nonrebreather at 15 L oxygen and FiO2 90%. Her oxygen saturations went up to 88 to 90%. On admission blood pressure was 151/88 respiratory rate 30 heart rate 129 and pulse ox 88% on 15 L oxygen via nonrebreather. Chest x-ray showed interval development of interstitial perihilar and basilar infiltrates compatible with COVID-19 pneumonia. CTA chest showed no evidence of PE. Multifocal and confluent groundglass opacities with lower lung organizing consolidation bilaterally consistent with COVID-19 infection EKG showed sinus tachycardia 03/10/2021 Patient is seen and evaluated in follow-up on the regular medical floor. He is currently resting fairly comfortably in bed. Awake and alert in no acute distress. He is still requiring AirVo high flow oxygen at 60 L and 90% FiO2 plus a nonrebreather mask to maintain O2 saturations in the low 90s. Currently afebrile. Hemodynamically stable. Blood cultures reveal no growth. D-dimer up to 5.12. Sodium 135. Potassium 4.7. Creatinine 0.7. Glucose 200. LDH 832. C-reactive protein less than 0.4. He remains on Decadron, Lovenox, vitamin supplements. Pulmonary on board and recommending to increase Lovenox to 45 mg subcu twice a day; Decadron switched to IV Solu-Medrol 60 mg every 6 hours; continue to titrate FiO2 as able Repeat chest x-ray tomorrow morning; CODE STATUS has been changed to DO NOT RESUSCITATE/DO NOT INTUBATE per patient and family request 03/11/2021 Patient is seen in follow-up on the regular medical floor. He is currently resting in bed laying on his left side which is his preferred positioning. He is still on airflow high flow oxygen at 60 L and 90% FiO2 plus a nonrebreather mask. Not making much progress. Chest x-ray continues to show diffuse interstitial alveolar infiltrates. Stable compared to previous. D-dimer 6.68. Blood glucose 254. He remains on Lovenox 45 mg subcu twice a day. Continued on vitamin supplements. IV Solu-Medrol. His appetite is good. Working with the incentive spirometer. Objective - Vital Signs Vital signs: Vital Signs Temp 98.3 F 03/11/21 10:00 Pulse 92 03/11/21 10:00 Resp 20 03/11/21 10:00 BP 116/74 03/11/21 10:00 Pulse Ox 97 03/11/21 10:00 Intake & Output 03/10/21 03/11/21 03/11/21 18:59 06:59 18:59 Output Total 450 1300 Balance -450 -1300 Output: Urine 450 1300 Other: Voiding Method Indwelling Catheter Indwelling Catheter Indwelling Catheter - Exam Patient is lying in the bed comfortably, appears to be in mild distress, awake alert and oriented.. HEENT: Normocephalic. Neck is supple. Pupils reactive. Nostrils clear. Oral cavity is moist. Ears reveal no drainage. Neck reveals no JVD, carotid bruits, or thyromegaly. CHEST EXAMINATION: Trachea is central. Symmetrical expansion. Bilateral coarse breath sounds. No wheezing or rhonchi.. CARDIAC: Normal S1, S2 with no gallops. No murmurs ABDOMEN: Soft. Bowel sounds normal. No organomegaly. No abdominal bruits. Extremities: reveal no edema. No clubbing or cyanosis Neurologically awake, alert, oriented x3 with well-coordinated movements. No focal deficits noted Skin: No rash or skin lesions. Psychiatric: Coperative. Nonsuicidal Musculoskeletal: No joint swelling or deformity. Normal range of motion. - Labs CBC & Chem 7: 03/09/21 04:01 03/10/21 06:34 Labs: Abnormal Lab Results - Last 24 Hours (Table) 03/10/21 03/10/2121 Range/Units 06:34 16:20 20:35 D-Dimer (<0.60) mg/L FEU BUN/Creatinine Ratio 38.57 H (12.00-20.00) Ratio Glucose 200 H (70-110) mg/dL POC Glucose (mg/dL) 213 H 180 H (75-99) mg/dL Calcium 8.6 L (8.7-10.3) mg/dL Lactate Dehydrogenase 832 H (120-246) U/L 03/11/21 03/11/21 Range/Units 06:36 07:09 D-Dimer 6.68 H (<0.60) mg/L FEU BUN/Creatinine Ratio (12.00-20.00) Ratio Glucose (70-110) mg/dL POC Glucose (mg/dL) 254 H (75-99) mg/dL Calcium (8.7-10.3) mg/dL Lactate Dehydrogenase (120-246) U/L Assessment and Plan Assessment: Acute hypoxic respiratory failure secondary to COVID-19 pneumonia. on Airvo 60L fio2 90% Acute COVID-19 pneumonia with multifocal groundglass opacities with lower lung organizing consolidation. Elevated D-dimer level with no evidence of PE on CTA chest Lactic acidosis secondary to hypoxia improved now Leukopenia Acute kidney injury with creatinine 1.42 on admission. improved. Elevated inflammatory markers Hypertension DVT prophylaxis Lovenox. Plan: Patient will be continued on oxygen supplementation at 15 L via nonrebreather intermittently and Air vo 60L with 90% Fio2. continue on dexamethasone 6 mg daily--> BID, Lovenox 40 mg subcu daily-- >BID and breathing treatments . Patient was given a dose of Tocilizumab on 03/02/2021 Continue with multivitamins and follow-up closely. Pulmonary will be consulted and further recommendations based on clinical course. Prognosis guarded at this time.
--- NOTE | 2021-03-12 17:08 | P.PN ---
Subjective Progress Note Date: 03/12/21 Principal diagnosis: Acute hypoxic respiratory failure secondary to COVID-19 pneumonia. on Airvo 60L fio2 90% Acute COVID-19 pneumonia with multifocal groundglass opacities with lower lung organizing consolidation. Elevated D-dimer level with no evidence of PE on CTA chest Lactic acidosis secondary to hypoxia 55-year-old male with a known history of hypertension and previous history of smoking presents to ER due to worsening shortness of breath since Saturday. Patient states that he flew from [place] about 3 days ago and since then he has been having fever exertional dyspnea and cough and shortness of breath which has been worsening since then. Patient was seen at outpatient clinic today and was diagnosed with COVID-19. Patient was found to be hypoxic and was having exertional dyspnea and sent to ER. Pulse ox was in the 70s as reported. Irasema taylor was dyspneic on on admission and was placed on 100% nonrebreather at 15 L oxygen and FiO2 90%. Her oxygen saturations went up to 88 to 90%. On admission blood pressure was 151/88 respiratory rate 30 heart rate 129 and pulse ox 88% on 15 L oxygen via nonrebreather. Chest x-ray showed interval development of interstitial perihilar and basilar infiltrates compatible with COVID-19 pneumonia. CTA chest showed no evidence of PE. Multifocal and confluent groundglass opacities with lower lung organizing consolidation bilaterally consistent with COVID-19 infection EKG showed sinus tachycardia 03/10/2021 Patient is seen and evaluated in follow-up on the regular medical floor. He is currently resting fairly comfortably in bed. Awake and alert in no acute distress. He is still requiring AirVo high flow oxygen at 60 L and 90% FiO2 plus a nonrebreather mask to maintain O2 saturations in the low 90s. Currently afebrile. Hemodynamically stable. Blood cultures reveal no growth. D-dimer up to 5.12. Sodium 135. Potassium 4.7. Creatinine 0.7. Glucose 200. LDH 832. C-reactive protein less than 0.4. He remains on Decadron, Lovenox, vitamin supplements. Pulmonary on board and recommending to increase Lovenox to 45 mg subcu twice a day; Decadron switched to IV Solu-Medrol 60 mg every 6 hours; continue to titrate FiO2 as able Repeat chest x-ray tomorrow morning; CODE STATUS has been changed to DO NOT RESUSCITATE/DO NOT INTUBATE per patient and family request 03/11/2021 Patient is seen in follow-up on the regular medical floor. He is currently resting in bed laying on his left side which is his preferred positioning. He is still on airflow high flow oxygen at 60 L and 90% FiO2 plus a nonrebreather mask. Not making much progress. Chest x-ray continues to show diffuse interstitial alveolar infiltrates. Stable compared to previous. D-dimer 6.68. Blood glucose 254. He remains on Lovenox 45 mg subcu twice a day. Continued on vitamin supplements. IV Solu-Medrol. His appetite is good. Working with the incentive spirometer. 03/12/2021 Patient is seen and evaluated in follow-up on the regular medical floor. He is currently resting comfortably in bed. No worsening shortness of breath, cough or congestion. Still dyspneic with exertion and conversation. He is able to be turned down on the airflow to 60 L and 85% FiO2 was then nonrebreather mask. O2 saturations in the low 90s. He remains on bronchodilators, IV Solu-Medrol, vitamin supplements. Lovenox at 45 mg subcu twice a day. Appetite is good. Continues to work well with the incentive spirometer. We will continue with current management; titrate FiO2 as able; patient has been encouraged to use incentive spirometry; inflammatory markers and follow-up chest x-ray tomorrow morning; pulmonary on board and recommending to continue current treatment Objective - Vital Signs Vital signs: Vital Signs Temp 98.3 F 03/12/21 14:00 Pulse 112 H 03/12/21 14:00 Resp 22 03/12/21 14:00 BP 131/94 03/12/21 14:00 Pulse Ox 90 L 03/12/21 16:50 Intake & Output 03/11/21 03/12/21 03/12/21 18:59 06:59 18:59 Output Total 603 595 6960 Balance -700 -900 -1100 Output: Urine 830 482 0588 Other: Voiding Method Indwelling Catheter Indwelling Catheter Indwelling Catheter # Bowel Movements 1 - Exam Patient is lying in the bed comfortably, appears to be in mild distress, awake alert and oriented.. HEENT: Normocephalic. Neck is supple. Pupils reactive. Nostrils clear. Oral ca vity is moist. Ears reveal no drainage. Neck reveals no JVD, carotid bruits, or thyromegaly. CHEST EXAMINATION: Trachea is central. Symmetrical expansion. Bilateral coarse breath sounds. No wheezing or rhonchi.. CARDIAC: Normal S1, S2 with no gallops. No murmurs ABDOMEN: Soft. Bowel sounds normal. No organomegaly. No abdominal bruits. Extremities: reveal no edema. No clubbing or cyanosis Neurologically awake, alert, oriented x3 with well-coordinated movements. No focal deficits noted Skin: No rash or skin lesions. Psychiatric: Coperative. Nonsuicidal Musculoskeletal: No joint swelling or deformity. Normal range of motion. - Labs CBC & Chem 7: 03/09/21 04:01 03/10/21 06:34 Labs: Abnormal Lab Results - Last 24 Hours (Table) 03/11/21 03/12/21 03/12/21 Range/Units 20:15 07:06 11:39 POC Glucose (mg/dL) 372 H 286 H 243 H (75-99) mg/dL 03/12/21 Range/Units 16:13 POC Glucose (mg/dL) 375 H (75-99) mg/dL Assessment and Plan Assessment: Acute hypoxic respiratory failure secondary to COVID-19 pneumonia. on Airvo 60L fio2 90% Acute COVID-19 pneumonia with multifocal groundglass opacities with lower lung organizing consolidation. Elevated D-dimer level with no evidence of PE on CTA chest Lactic acidosis secondary to hypoxia improved now Leukopenia Acute kidney injury with creatinine 1.42 on admission. improved. Elevated inflammatory markers Hypertension DVT prophylaxis Lovenox. Plan: Patient will be continued on oxygen supplementation at 15 L via nonrebreather intermittently and Air vo 60L with 90% Fio2. continue on dexamethasone 6 mg daily--> BID, Lovenox 40 mg subcu daily-- >BID and breathing treatments . Patient was given a dose of Tocilizumab on 03/02/2021 Continue with multivitamins and follow-up closely. Pulmonary will be consulted and further recommendations based on clinical course. Prognosis guarded at this time.
[2021-03-12 20:29] LABS: Glucose,Whole Blood 338 mg/dL (75-99)
[2021-03-12] MEDS: amLODIPine 10 MG TAB PO SCH (21:13)
[2021-03-12] MEDS: ALPRAZolam 0.5 MG TAB PO PRN (21:19)
[2021-03-13] MEDS: methylPREDNISolone SOD SUCCI 125 MG/2 ML VIAL IV SCH ×5 (00:09→23:12)
[2021-03-13] MEDS: SODIUM CHLORIDE 0.9% 1,000 ML IV SCH ×2 (05:15→17:17)
[2021-03-13 06:48] LABS: Glucose,Whole Blood 302 mg/dL (75-99)
[2021-03-13] MEDS: ENOXAPARIN 60 MG/0.6 ML SYRINGE SQ SCH (07:34)
[2021-03-13] MEDS: INSULIN ASPART (NovoLOG) 100 UNIT/ML VIAL SQ SCH ×3 (07:34→17:14)
[2021-03-13] MEDS: FAMOTIDINE 20 MG TAB PO SCH ×2 (07:35→19:59)
[2021-03-13] MEDS: ASCORBIC ACID 500 MG TAB PO SCH (07:35)
[2021-03-13] MEDS: CHOLECALCIFEROL 25 MCG (1000 IU) TABLET PO SCH (07:35)
[2021-03-13] MEDS: ZINC SULFATE 220 MG CAP PO SCH (07:35)
--- NOTE | 2021-03-13 08:35 | XR ---
EXAMINATION TYPE: XR chest 1V portable DATE OF EXAM: 03/13/2021 CLINICAL HISTORY: Difficulty breathing and covid progress study. TECHNIQUE: Single AP portable upright view of the chest is obtained. COMPARISON: Chest x-ray from 2 days earlier and older studies FINDINGS: Multifocal left lung opacity redemonstrated. Left-sided volume loss with mediastinal shift again seen. Improved right lung reticulonodular opacity. Cardiac silhouette size stable and within n ormal limits. Osseous structures are intact IMPRESSION: Multifocal left lung opacities and left-sided volume loss redemonstrated thoughts stable. Improved right lung multifocal reticulonodular opacities.
[2021-03-13 09:34] LABS: C Reactive Protein <0.4 mg/dL (0.0-0.8); LDH 633 U/L (120-246)
[2021-03-13] MEDS: ALBUTEROL HFA INHALER INHALATION PRN (11:22)
[2021-03-13 11:57] LABS: Glucose,Whole Blood 308 mg/dL (75-99)
--- NOTE | 2021-03-13 14:26 | P.PN ---
Subjective Principal diagnosis: Acute hypoxic respiratory failure secondary to COVID-19 pneumonia. on Airvo 60L fio2 90% Acute COVID-19 pneumonia with multifocal groundglass opacities with lower lung organizing consolidation. Elevated D-dimer level with no evidence of PE on CTA chest Lactic acidosis secondary to hypoxia 55-year-old male with a known history of hypertension and previous history of smoking presents to ER due to worsening shortness of breath since Saturday. Patient states that he flew from [place] about 3 days ago and since then he has been having fever exertional dyspnea and cough and shortness of breath which has been worsening since then. Patient was seen at outpatient clinic today and was diagnosed with COVID-19. Patient was found to be hypoxic and was having exertional dyspnea and sent to ER. Pulse ox was in the 70s as reported. Patient was dyspneic on on admission and was placed on 100% nonrebreather at 15 L oxygen and FiO2 90%. Her oxygen saturations went up to 88 to 90%. On admission blood pressure was 151/88 respiratory rate 30 heart rate 129 and pulse ox 88% on 15 L oxygen via nonrebreather. Chest x-ray showed interval development of interstitial perihilar and basilar infiltrates compatible with COVID-19 pneumonia. CTA chest showed no evidence of PE. Multifocal and confluent groundglass opacities with lower lung organizing consolidation bilaterally consistent with COVID-19 infection EKG showed sinus tachycardia 03/10/2021 Patient is seen and evaluated in follow-up on the regular medical floor. He is currently resting fairly comfortably in bed. Awake and alert in no acute distress. He is still requiring AirVo high flow oxygen at 60 L and 90% FiO2 plus a nonrebreather mask to maintain O2 saturations in the low 90s. Currently afebrile. Hemodynamically stable. Blood cultures reveal no growth. D-dimer up to 5.12. Sodium 135. Potassium 4.7. Creatinine 0.7. Glucose 200. LDH 832. C-reactive protein less than 0.4. He remains on Decadron, Lovenox, vitamin supplements. Pulmonary on board and recommending to increase Lovenox to 45 mg subcu twice a day; Decadron switched to IV Solu-Medrol 60 mg every 6 hours; continue to titrate FiO2 as able Repeat chest x-ray tomorrow morning; CODE STATUS has been changed to DO NOT RESUSCITATE/DO NOT INTUBATE per patient and family request 03/11/2021 Patient is seen in follow-up on the regular medical floor. He is currently resting in bed laying on his left side which is his preferred positioning. He is still on airflow high flow oxygen at 60 L and 90% FiO2 plus a nonrebreather mask. Not making much progress. Chest x-ray continues to show diffuse interstitial alveolar infiltrates. Stable compared to previous. D-dimer 6.68. Blood glucose 254. He remains on Lovenox 45 mg subcu twice a day. Continued on vitamin supplements. IV Solu-Medrol. His appetite is good. Working with the incentive spirometer. 03/12/2021 Patient is seen and evaluated in follow-up on the regular medical floor. He is currently resting comfortably in bed. No worsening shortness of breath, cough or congestion. Still dyspneic with exertion and conversation. He is able to be turned down on the airflow to 60 L and 85% FiO2 was then nonrebreather mask. O2 saturations in the low 90s. He remains on bronchodilators, IV Solu-Medrol, vitamin supplements. Lovenox at 45 mg subcu twice a day. Appetite is good. Continues to work well with the incentive spirometer. We will continue with current management; titrate FiO2 as able; patient has been encouraged to use incentive spirometry; inflammatory markers and follow-up chest x-ray tomorrow morning; pulmonary on board and recommending to continue current treatment. 03/13/2021 Patient remains on aivo with FiO2 of 85% and 60 L of oxygen although saturating 99% patient is feeling better bit tachycardic. Constitutional: Denied any fatigue denied any fever. Cardio vascular: denied any chest pain, palpitations Gastrointestinal denied any nausea vomiting Pulmonary: As mentioned in the interval history Neurologic denied any new focal deficits All inpatient medications were reviewed and appropriate changes in these medications as dictated in the interval history and assessment and plan. Objective - Vital Signs Vital signs: Vital Signs Temp 97.2 F L 03/13/21 10:00 Pulse 111 H 03/13/21 10:00 Resp 18 03/13/21 10:00 BP 127/85 03/13/21 10:00 Pulse Ox 99 03/13/21 10:00 Intake & Output 03/12/21 03/13/21 03/13/21 18:59 06:59 18:59 Intake Total 118 Output Total 1100 1600 Balance -1100 -1600 118 Intake: Oral 118 Output: Urine 1100 1600 Other: Voiding Method Indwelling Catheter Indwelling Catheter Indwelling Catheter - Exam PHYSICAL EXAMINATION: GENERAL: The patient is alert and oriented x3, not in any acute distress. Well developed, well nourished. HEENT: Pupils are round and equally reacting to light. EOMI. No scleral icterus. No conjunctival pallor. Normocephalic, atraumatic. No pharyngeal erythema. No thyromegaly. CARDIOVASCULAR: S1 and S2 present. No murmurs, rubs, or gallops. PULMONARY: Bilateral rhonchi no wheezing was appreciated ABDOMEN: Soft, nontender, nondistended, normoactive bowel sounds. No palpable organomegaly. MUSCULOSKELETAL: No joint swelling or deformity. EXTREMITIES: No cyanosis, clubbing, or pedal edema. NEUROLOGICAL: Gross neurological examination did not reveal any focal deficits. SKIN: No rashes. Note: Because of COVID 19 isolation, some of the history and physical exam findings are indirect and obtained from nursing staff, and other physician examinations to avoid unnecessary contact with the patient. - Labs CBC & Chem 7: 03/09/21 04:01 03/10/21 06:34 Labs: Abnormal Lab Results - Last 24 Hours (Table) 03/12/21 03/12/21 03/13/21 Range/Units 16:13 20:20 06:02 D-Dimer 2.70 H (<0.60) mg/L FEU POC Glucose (mg/dL) 375 H 338 H (75-99) mg/dL Lactate Dehydrogenase (120-246) U/L 03/13/21 03/13/21 03/13/21 Range/Units 06:02 06:47 11:55 D-Dimer (<0.60) mg/L FEU POC Glucose (mg/dL) 302 H 308 H (75-99) mg/dL Lactate Dehydrogenase 633 H (120-246) U/L Assessment and Plan Plan: Acute hypoxic respiratory failure secondary to COVID-19 pneumonia. on Airvo 60L fio2 at 85%, saturating well is on Decadron, Lovenox, head Tocilizumab on 03/02/2021 Acute COVID-19 pneumonia with multifocal groundglass opacities with lower lung organizing consolidation. Elevated D-dimer level with no evidence of PE on CTA chest Lactic acidosis secondary to hypoxia improved now Leukopenia Acute kidney injury with creatinine 1.42 on admission. improved. Elevated inflammatory markers Hypertension DVT prophylaxis Lovenox.
--- NOTE | 2021-03-13 14:59 | P.PN ---
Subjective Progress Note Date: 03/13/21 55-year-old male patient, diagnosed having COVID-19 infection, as the patient started getting symptomatic approximately 5 days ago. He started having some fevers initially and following that he started having increased cough and shortness of breath and for that reason he came into the hospital. He was di agnosed having COVID-19 pneumonia. In the emergency department, the patient was hypoxic with pulse ox of 70% and he was short of breath. He was placed on 100% nonrebreather facemask and his pulse ox was brought up to 90%. He was hemodynamically stable. His chest x-ray showed bilateral interstitial pulmonary infiltrates most on the lower lobes although difficulties are rather diffuse. His blood work at a time of admission showed normal white cell count of 4.2 with a lymphopenia. His d-dimer is at 1.1, he had an acute kidney injury with a creatinine of 1.4 which improvement in the creatinine is down to 0.9, LDH is significantly elevated at 2539, with a CRP level of 15.4 and appropriate acetone level of 0.4. Coagulation profile is within normal limits. Blood sugar was 168. He also underwent a CT angiogram of the chest that showed no evidence of any pulmonary embolism. There was found to have emphysema and a background in addition to bilateral groundglass pulmonary infiltrates scattered throughout the lung hirsch bilaterally both in the upper and lower lobes. Some minimal areas of consolidation in the lung bases. The rest is essentially consistent with groundglass pulmonary infiltrates. No mediastinal lymphadenopathy. No pulmonary embolism. 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 He was in [place] on his last trip, he started getting symptomatic approximately 5 days ago. He was in [place] and [place] the week prior. It, the patient's oxidation got worse and the patient was placed on high flow oxygen and currently is on 60 L of oxygen by nasal cannula with a 90% FiO2 and a nonrebreather facemask. He is currently on Decadron 6 mg by mouth on a daily basis and the patient is also on Lovenox 40 mg subcu daily. Comorbid conditions include COPD and hypertension. 69 was quite dehydrated as the patient was not taken oral intake and he was quite intravascularly depleted with an acute kidney injury. On 03/03/2021 patient seen in follow-up in the intensive care unit, he is resting in bed on his left side, he is currently on Airvo 60 L and FiO2 of 90% and 100% nonrebreather mask and his pulse ox is 90-95%. He has 0.9 normal saline at 75 ML per hour, no other drips, he status post Tocilizumab 720 mg IV infusion yesterday on 03/02/2021. He is on Decadron 6 mg twice daily, she is on prophylactic dose of Lovenox, CTA chest showed no evidence of pulmonary embolism. Today's d-dimer is 1.16, LDH is 2590, and CRP is 4.6. Clinically patient states he is breathing easier, and she doesn't desaturate as low with repositioning, he has been positioning self in bed, and self proning, tolerating activity well, no nausea vomiting or diarrhea, and today she states she's actually feeling hungry. Today's chest x-ray also bilateral multifocal and confluent opacities consistent with COVID-19 infection stable in appearance compared to days ago. On 03/06/2021 patient seen in follow-up in the intensive care unit. He remains on high flow oxygen, per Airvo at 60 L/m, and FiO2 of 90% in addition to her percent nonrebreather mask with a pulse ox between 85-87%, he is laying on his left side, he is unable to tolerate proning. His IV fluids are infusing at 75 ML per hour, his chest x-ray today shows bilateral interstitial infiltrates that are stable in appearance. Overall seems to be in no acute distress. His labs have been reviewed showing white blood cell, 7.9, hemoglobin of 17, his sodium is 135, the rest of electrolytes were within normal limits, BUN of 29 creatinine of 0.70, AST of 41, ALT of 108, alkaline phosphatase of 109. His last d-dimer from yesterday was 2.88, and patient remains on prophylactic dose of Lovenox at 40 mg once daily, he remains on IV Decadron 6 mg daily. He is on vitamins including vitamin C, vitamin D and zinc, he is on normal saline at 75 ML per hour, his appetite has been fair, as a matter fact his been ordering takeout via [employer]. His blood pressure has been stable, his been afebrile, he is in sinus mechanism. No complaints of chest discomfort no cough. On 03/09/2021 patient seen in follow-up in intensive care unit, he is currently on Airvo at 60 L and FiO2 of 90%, in addition to 100% nonrebreather mask, his pulse ox was around 86-88%, he is very short of breath even with conversation, however in no acute distress, he has been repositioning self in bed, mostly prefers to lay on the left side, his been afebrile, hemodynamically he is stable, he is in sinus mechanism, he is receiving IV fluids at 75 ML per hour, his appetite is fair, and his family has been ordering him takeout food. Today's labs have been reviewed, his white blood cell count is 10.8, hemoglobin is 16.3, his d-dimer 3.79, stable, sodium is 134, the rest of electrolytes are within normal limits, BUN is 22 creatinine 0.64. Remains on Decadron 6 mg twice daily, he remains on Lovenox 40 mg once daily. On nausea vomiting or diarrhea, no chest discomfort, no swollen or tender calves. Patient is requesting to be transferred out of intensive care unit and he would like to go home tomorrow, which we told him that he is not anywhere close to going home yet On 03/13/2021 patient seen in follow-up on medical surgical floor, he is still on Airvo currently at 60 L and FiO2 of 90% in addition to partial rebreather mask and his pulse ox earlier on the full 100% nonrebreather and Airvo was 99% and for that reason the tab was removed from inside the mask and tone in 20 partial rebreather mask. He is still very short of breath with any activity and conversation, but essentially stable, has not gotten worse, his been afebrile. D-dimer is 2.7, his Lovenox will be adjusted, his d-dimer is improving and so are his inflammatory markers, his LDH is down to 633, and CRP is less than 0.4. Patient continues on IV Solu-Medrol 60 g every 6 hours, he is on multivitamins, and his current dose Lovenox is 45 mg subcu twice daily. No nausea vomiting or diarrhea, he is tolerating oral intake. Today's chest x-ray shows multifocal left lung opacities and a left-sided volume loss improved right lung multifocal reticulonodular opacities. Objective - Vital Signs Vital signs: Vital Signs Temp 97.2 F L 03/13/21 14:30 Pulse 119 H 03/13/21 14:30 Resp 18 03/13/21 14:30 BP 127/70 03/13/21 14:30 Pulse Ox 91 L 03/13/21 14:30 Intake & Output 03/12/21 03/13/21 03/13/21 18:59 06:59 18:59 Intake Total 118 Output Total 1100 1600 Balance -1100 -1600 118 Intake: Oral 118 Output: Urine 1100 1600 Other: Voiding Method Indwelling Catheter Indwelling Catheter Indwelling Catheter - Exam GENERAL EXAM: Alert, , 55-year-old white male, laying on his left side in bed on medical surgical unit, on Airvo at 60 L and FiO2 of 90% and partial rebreather mask, with pulse ox ranging between 91%comfortable in no apparent distress. HEAD: Normocephalic/atraumatic. EYES: Normal reaction of pupils, equal size. Conjunctiva pink, sclera white. NOSE: Clear with pink turbinates. THROAT: No erythema or exudates. NECK: No masses, no JVD, no thyroid enlargement, no adenopathy. CHEST: No chest wall deformity. Symmetrical expansion. LUNGS: Equal air entry with diminished breath sounds at the bases, no crackles, no rhonchi no wheezes CVS: Regular rate and rhythm, normal S1 and S2, no gallops, no murmurs, no rubs ABDOMEN: Soft, nontender. No hepatosplenomegaly, normal bowel sounds, no guarding or rigidity. EXTREMITIES: No clubbing, no edema, no cyanosis, 2+ pulses and upper and lower extremities. MUSCULOSKELETAL: Muscle strength and tone normal. SPINE: No scoliosis or deformity SKIN: No rashes CENTRAL NERVOUS SYSTEM: Alert and oriented -3. No focal deficits, tone is normal in all 4 extremities. PSYCHIATRIC: Alert and oriented -3. Appropriate affect. Intact judgment and insight. - Labs CBC & Chem 7: 03/09/21 04:01 03/10/21 06:34 Labs: Abnormal Lab Results - Last 24 Hours (Table) 03/12/21 03/12/21 03/13/21 Range/Units 16:13 20:20 06:02 D-Dimer 2.70 H (<0.60) mg/L FEU POC Glucose (mg/dL) 375 H 338 H (75-99) mg/dL Lactate Dehydrogenase (120-246) U/L 03/13/21 03/13/21 03/13/21 Range/Units 06:02 06:47 11:55 D-Dimer (<0.60) mg/L FEU POC Glucose (mg/dL) 302 H 308 H (75-99) mg/dL Lactate Dehydrogenase 633 H (120-246) U/L Assessment and Plan Plan: Assessment: #1. Acute COVID-19 related pneumonia with diffuse but the pulmonary infiltrates/groundglass changes. Patient started getting symptoms approximately 5 days ago and the patient was diagnosed having COVID-19 infection on 03/01/2021 and a diagnosis was established at [facility]. He is quite hypoxic and he presented with significant shortness of breath and hypoxemia the time of admission and currently is on high flow oxygen 60 L with an FiO2 of 90% and the patient is also utilizing 100% on a beta facemasks. Transferred to the intensive care unit on 03/02/2021 and received a dose of Tocilizumab on 03/02/2021. On 03/13/2021 remains on Airvo at 60 L and FiO2 of 90% in addition to partial rebreather mask #2. Acute hypoxic respiratory failure secondary to above #3. elevated inflammatory markers secondary to COVID-19 related infection/pneumo eliud #4. COPD #5. acute kidney injury, improving #6. hypertension Plan: Continue weaning FiO2 to keep O2 sats ration is at 88% or above Remains on Airvo and partial rebreather mask Patient's oxygenation has been slow to improve, however it has not worsened either, and he has remained fairly stable over last several days His d-dimer and inflammatory markers are improving We'll dropped on his d-dimer to 40 mg once daily Continue current dose IV Solu-Medrol and multivitamins We'll continue supportive treatment I performed a history & physical examination of the patient and discussed their management with my nurse practitioner, Carola Bourgeois. I reviewed the nurse practitioner's note and agree with the documented findings and plan of care. Lung sounds are positive for diminished breath sounds. The findings and the impression was discussed with the patient. I attest to the documentation by the nurse practitioner. Time with Patient: Less than 30
[2021-03-13 17:01] LABS: Glucose,Whole Blood 509 mg/dL (75-99)
[2021-03-13] MEDS ORDERED: INSULIN REGULAR 100 UNIT/ML VIAL (IV) IV ONE (18:00)
[2021-03-13] MEDS: INSULIN REGULAR 100 UNIT in SODIUM CHLORIDE 0.9% 100 ML IV SCH (18:01)
[2021-03-13 18:03] LABS: Glucose,Whole Blood 485 mg/dL (75-99)
[2021-03-13 18:46] LABS: Glucose,Whole Blood 388 mg/dL (75-99)
[2021-03-13 19:29] LABS: Glucose,Whole Blood 324 mg/dL (75-99)
[2021-03-13 19:58] LABS: Glucose,Whole Blood 332 mg/dL (75-99)
[2021-03-13] MEDS: amLODIPine 10 MG TAB PO SCH (19:59)
[2021-03-13 20:36] LABS: Glucose,Whole Blood 265 mg/dL (75-99)
[2021-03-13 21:03] LABS: Glucose,Whole Blood 255 mg/dL (75-99)
[2021-03-13 21:38] LABS: Glucose,Whole Blood 205 mg/dL (75-99)
[2021-03-13] MEDS: ALPRAZolam 0.5 MG TAB PO PRN (23:12)
[2021-03-13 23:35] LABS: Glucose,Whole Blood 176 mg/dL (75-99)
[2021-03-14 01:26] LABS: Glucose,Whole Blood 162 mg/dL (75-99)
[2021-03-14 03:32] LABS: Glucose,Whole Blood 190 mg/dL (75-99)
[2021-03-14] MEDS: methylPREDNISolone SOD SUCCI 125 MG/2 ML VIAL IV SCH ×3 (05:36→17:41)
[2021-03-14 05:37] LABS: Glucose,Whole Blood 156 mg/dL (75-99)
[2021-03-14 07:34] LABS: Glucose,Whole Blood 282 mg/dL (75-99)
[2021-03-14] MEDS: CHOLECALCIFEROL 25 MCG (1000 IU) TABLET PO SCH (09:26)
[2021-03-14] MEDS: SODIUM CHLORIDE 0.9% 1,000 ML IV SCH ×2 (09:27→21:50)
[2021-03-14] MEDS: ASCORBIC ACID 500 MG TAB PO SCH (09:27)
[2021-03-14] MEDS: ZINC SULFATE 220 MG CAP PO SCH (09:27)
[2021-03-14] MEDS: ENOXAPARIN 40 MG/0.4 ML SYRINGE SQ SCH (09:27)
[2021-03-14] MEDS: FAMOTIDINE 20 MG TAB PO SCH ×2 (09:27→21:48)
[2021-03-14 09:36] LABS: Glucose,Whole Blood 256 mg/dL (75-99)
[2021-03-14] MEDS: INSULIN REGULAR 100 UNIT in SODIUM CHLORIDE 0.9% 100 ML IV SCH (11:20)
[2021-03-14 11:25] LABS: Glucose,Whole Blood 177 mg/dL (75-99)
--- NOTE | 2021-03-14 13:02 | P.PN ---
Subjective Progress Note Date: 03/14/21 55-year-old male patient, diagnosed having COVID-19 infection, as the patient started getting symptomatic approximately 5 days ago. He started having some fevers initially and following that he started having increased cough and shortness of breath and for that reason he came into the hospital. He was di agnosed having COVID-19 pneumonia. In the emergency department, the patient was hypoxic with pulse ox of 70% and he was short of breath. He was placed on 100% nonrebreather facemask and his pulse ox was brought up to 90%. He was hemodynamically stable. His chest x-ray showed bilateral interstitial pulmonary infiltrates most on the lower lobes although difficulties are rather diffuse. His blood work at a time of admission showed normal white cell count of 4.2 with a lymphopenia. His d-dimer is at 1.1, he had an acute kidney injury with a creatinine of 1.4 which improvement in the creatinine is down to 0.9, LDH is significantly elevated at 2539, with a CRP level of 15.4 and appropriate acetone level of 0.4. Coagulation profile is within normal limits. Blood sugar was 168. He also underwent a CT angiogram of the chest that showed no evidence of any pulmonary embolism. There was found to have emphysema and a background in addition to bilateral groundglass pulmonary infiltrates scattered throughout the lung hirsch bilaterally both in the upper and lower lobes. Some minimal areas of consolidation in the lung bases. The rest is essentially consistent with groundglass pulmonary infiltrates. No mediastinal lymphadenopathy. No pulmonary embolism. 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 He was in [place] and [place] the week prior. It, the patient's oxidation got worse and the patient was placed on high flow oxygen and currently is on 60 L of oxygen by nasal cannula with a 90% FiO2 and a nonrebreather facemask. He is currently on Decadron 6 mg by mouth on a daily basis and the patient is also on Lovenox 40 mg subcu daily. Comorbid conditions include COPD and hypertension. 70 was quite dehydrated as the patient was not taken oral intake and he was quite intravascularly depleted with an acute kidney injury. On 03/03/2021 patient seen in follow-up in the intensive care unit, he is resting in bed on his left side, he is currently on Airvo 60 L and FiO2 of 90% and 100% nonrebreather mask and his pulse ox is 90-95%. He has 0.9 normal saline at 75 ML per hour, no other drips, he status post Tocilizumab 720 mg IV infusion yesterday on 03/02/2021. He is on Decadron 6 mg twice daily, she is on prophylactic dose of Lovenox, CTA chest showed no evidence of pulmonary embolism. Today's d-dimer is 1.16, LDH is 2590, and CRP is 4.6. Clinically patient states he is breathing easier, and she doesn't desaturate as low with repositioning, he has been positioning self in bed, and self proning, tolerating activity well, no nausea vomiting or diarrhea, and today she states she's actually feeling hungry. Today's chest x-ray also bilateral multifocal and confluent opacities consistent with COVID-19 infection stable in appearance compared to days ago. On 03/06/2021 patient seen in follow-up in the intensive care unit. He remains on high flow oxygen, per Airvo at 60 L/m, and FiO2 of 90% in addition to her percent nonrebreather mask with a pulse ox between 85-87%, he is laying on his left side, he is unable to tolerate proning. His IV fluids are infusing at 75 ML per hour, his chest x-ray today shows bilateral interstitial infiltrates that are stable in appearance. Overall seems to be in no acute distress. His labs have been reviewed showing white blood cell, 7.9, hemoglobin of 17, his sodium is 135, the rest of electrolytes were within normal limits, BUN of 29 creatinine of 0.70, AST of 41, ALT of 108, alkaline phosphatase of 109. His last d-dimer from yesterday was 2.88, and patient remains on prophylactic dose of Lovenox at 40 mg once daily, he remains on IV Decadron 6 mg daily. He is on vitamins including vitamin C, vitamin D and zinc, he is on normal saline at 75 ML per hour, his appetite has been fair, as a matter fact his been ordering takeout via [employer]. His blood pressure has been stable, his been afebrile, he is in sinus mechanism. No complaints of chest discomfort no cough. On 03/09/2021 patient seen in follow-up in intensive care unit, he is currently on Airvo at 60 L and FiO2 of 90%, in addition to 100% nonrebreather mask, his pulse ox was around 86-88%, he is very short of breath even with conversation, however in no acute distress, he has been repositioning self in bed, mostly prefers to lay on the left side, his been afebrile, hemodynamically he is stable, he is in sinus mechanism, he is receiving IV fluids at 75 ML per hour, his appetite is fair, and his family has been ordering him takeout food. Today's labs have been reviewed, his white blood cell count is 10.8, hemoglobin is 16.3, his d-dimer 3.79, stable, sodium is 134, the rest of electrolytes are within normal limits, BUN is 22 creatinine 0.64. Remains on Decadron 6 mg twice daily, he remains on Lovenox 40 mg once daily. On nausea vomiting or diarrhea, no chest discomfort, no swollen or tender calves. Patient is requesting to be transferred out of intensive care unit and he would like to go home tomorrow, which we told him that he is not anywhere close to going home yet On 03/13/2021 patient seen in follow-up on medical surgical floor, he is still on Airvo currently at 60 L and FiO2 of 90% in addition to partial rebreather mask and his pulse ox earlier on the full 100% nonrebreather and Airvo was 99% and for that reason the tab was removed from inside the mask and tone in 20 partial rebreather mask. He is still very short of breath with any activity and conversation, but essentially stable, has not gotten worse, his been afebrile. D-dimer is 2.7, his Lovenox will be adjusted, his d-dimer is improving and so are his inflammatory markers, his LDH is down to 633, and CRP is less than 0.4. Patient continues on IV Solu-Medrol 60 g every 6 hours, he is on multivitamins, and his current dose Lovenox is 45 mg subcu twice daily. No nausea vomiting or diarrhea, he is tolerating oral intake. Today's chest x-ray shows multifocal left lung opacities and a left-sided volume loss improved right lung multifocal reticulonodular opacities. On 03/14/2031 patient seen in follow-up on medical surgical floor, continues to require high flow oxygen, remains on Airvo at 60 L and FiO2 of 82% and partial nonrebreather mask 92-94%. He states he is feeling just fine, he is asking when he can go home. Denies any acute distress, his been repositioning self in bed, mostly from side to side. He has been afebrile, hemodynamically has been stable, no complaints of chest discomfort, his last chest x-ray from yesterday showed multifocal left lung opacities and left-sided volume loss that appear to be stable in appearance, and improved right lung multifocal reticulonodular opacities. Yesterday's d-dimer was trending down, and was down to 2.7 and his Lovenox dose was adjusted down to 40 mg once daily, his inflammatory markers were improving. He's been tolerating oral intake, no nausea vomiting or diarrhea. His blood cultures have shown no growth, has had no fever or chills, he remains on high-dose IV steroids 60 mg every 6 hours, IV fluids at 75 ML per hour. Is on multivitamins, and prophylactic dose Lovenox Objective - Vital Signs Vital signs: Vital Signs Temp 97.3 F L 03/14/21 10:30 Pulse 111 H 03/14/21 10:30 Resp 18 03/14/21 10:30 BP 117/79 03/14/21 05:40 Pulse Ox 91 L 03/14/21 10:30 Intake & Output 03/13/21 03/14/21 03/14/21 18:59 06:59 18:59 Intake Total 139 80.000 Output Total 1500 1500 Balance -1361 -1420.000 Intake: Intake, IV Titration 21 80.000 Amount Insulin Regular 100 unit 21 80.000 In Sodium Chloride 0.9% 100 ml @ Titrate IV .Q0M [facility] Rx#:[id number] Oral 118 Output: Urine 1500 1500 Other: Voiding Method Indwelling Catheter Indwelling Catheter Indwelling Catheter - Exam GENERAL EXAM: Alert, , 55-year-old white male, laying on his left side in bed on medical surgical unit, on Airvo at 60 L and FiO2 of 90% and partial rebreather mask, with pulse ox ranging between 91%comfortable in no apparent distress. HEAD: Normocephalic/atraumatic. EYES: Normal reaction of pupils, equal size. Conjunctiva pink, sclera white. NOSE: Clear with pink turbinates. THROAT: No erythema or exudates. NECK: No masses, no JVD, no thyroid enlargement, no adenopathy. CHEST: No chest wall deformity. Symmetrical expansion. LUNGS: Equal air entry with diminished breath sounds at the bases, no crackles, no rhonchi no wheezes CVS: Regular rate and rhythm, normal S1 and S2, no gallops, no murmurs, no rubs ABDOMEN: Soft, nontender. No hepatosplenomegaly, normal bowel sounds, no guarding or rigidity. EXTREMITIES: No clubbing, no edema, no cyanosis, 2+ pulses and upper and lower extremities. MUSCULOSKELETAL: Muscle strength and tone normal. SPINE: No scoliosis or deformity SKIN: No rashes CENTRAL NERVOUS SYSTEM: Alert and oriented -3. No focal deficits, tone is normal in all 4 extremities. PSYCHIATRIC: Alert and oriented -3. Appropriate affect. Intact judgment and insight. - Labs CBC & Chem 7: 03/09/21 04:01 03/10/21 06:34 Labs: Abnormal Lab Results - Last 24 Hours (Table) 03/13/21 03/13/21 03/13/21 Range/Units 17:00 18:01 18:44 POC Glucose (mg/dL) 509 H 485 H 388 H (75-99) mg/dL 03/13/21 03/13/21 03/13/21 Range/Units 19:27 19:57 20:34 POC Glucose (mg/dL) 324 H 332 H 265 H (75-99) mg/dL 03/13/21 03/13/21 03/13/21 Range/Units 21:02 21:36 23:33 POC Glucose (mg/dL) 255 H 205 H 176 H (75-99) mg/dL 03/14/21 03/14/21 03/14/21 Range/Units 01:24 03:30 05:35 POC Glucose (mg/dL) 162 H 190 H 156 H (75-99) mg/dL 03/14/21 03/14/21 03/14/21 Range/Units 07:33 09:35 11:23 POC Glucose (mg/dL) 282 H 256 H 177 H (75-99) mg/dL Assessment and Plan Plan: Assessment: #1. Acute COVID-19 related pneumonia with diffuse but the pulmonary infiltrates/groundglass changes. Patient started getting symptoms approximately 5 days ago and the patient was diagnosed having COVID-19 infection on 03/01/2021 and a diagnosis was established at [facility]. He is quite hypoxic and he presented with significant shortness of breath and hypoxemia the time of admission and currently is on high flow oxygen 60 L with an FiO2 of 90% and the patient is also utilizing 100% on a beta facemasks. Transferred to the intensive care unit on 03/02/2021 and received a dose of Tocilizumab on 03/02/2021. On 03/13/2021 remains on Airvo at 60 L and FiO2 of 90% in addition to partial rebreather mask #2. Acute hypoxic respiratory failure secondary to above #3. elevated inflammatory markers secondary to COVID-19 related infection/pneumonia, and inflammatory markers are improving #4. COPD #5. acute kidney injury, resolved #6. hypertension Plan: Remains on Airvo and partial rebreather mask Encourage the patient to prone in bed, and reposition self in bed Wean FiO2, and his partial rebreather mask and probably be removed D-dimer and inflammatory marker follow-up tomorrow Continue IV Solu-Medrol, continue current dose Lovenox We'll continue supportive treatment I performed a history & physical examination of the patient and discussed their management with my nurse practitioner, Carola Bourgeois. I reviewed the nurse practitioner's note and agree with the documented findings and plan of care. Lung sounds are positive for diminished breath sounds. The findings and the impression was discussed with the patient. I attest to the documentation by the nurse practitioner. Time with Patient: Less than 30
[2021-03-14 13:33] LABS: Glucose,Whole Blood 327 mg/dL (75-99)
--- NOTE | 2021-03-14 15:11 | P.PN ---
Subjective Progress Note Date: 03/14/21 Acute hypoxic respiratory failure secondary to COVID-19 pneumonia. on Airvo 60L fio2 90% Acute COVID-19 pneumonia with multifocal groundglass opacities with lower lung organizing consolidation. Elevated D-dimer level with no evidence of PE on CTA chest Lactic acidosis secondary to hypoxia 55-year-old male with a known history of hypertension and previous history of smoking presents to ER due to worsening shortness of breath since Saturday. Patient states that he flew from [place] about 3 days ago and since then he has been having fever exertional dyspnea and cough and shortness of breath which has been worsening since then. Patient was seen at outpatient clinic today and was diagnosed with COVID-19. Patient was found to be hypoxic and was having exertional dyspnea and sent to ER. Pulse ox was in the 70s as reported. Patient was dyspneic on on admission and was placed on 100% nonrebreather at 15 L oxygen and FiO2 90%. Her oxygen saturations went up to 88 to 90%. On admission blood pressure was 151/88 respiratory rate 30 heart rate 129 and pulse ox 88% on 15 L oxygen via nonrebreather. Chest x-ray showed interval development of interstitial perihilar and basilar infiltrates compatible with COVID-19 pneumonia. CTA chest showed no evidence of PE. Multifocal and confluent groundglass opacities with lower lung organizing consolidation bilaterally consistent with COVID-19 infection EKG showed sinus tachycardia 03/10/2021 Patient is seen and evaluated in follow-up on the regular medical floor. He is currently resting fairly comfortably in bed. Awake and alert in no acute distr ess. He is still requiring AirVo high flow oxygen at 60 L and 90% FiO2 plus a nonrebreather mask to maintain O2 saturations in the low 90s. Currently afebrile. Hemodynamically stable. Blood cultures reveal no growth. D-dimer up to 5.12. Sodium 135. Potassium 4.7. Creatinine 0.7. Glucose 200. LDH 832. C-reactive protein less than 0.4. He remains on Decadron, Lovenox, vitamin supplements. Pulmonary on board and recommending to increase Lovenox to 45 mg subcu twice a day; Decadron switched to IV Solu-Medrol 60 mg every 6 hours; continue to titrate FiO2 as able Repeat chest x-ray tomorrow morning; CODE STATUS has been changed to DO NOT RESUSCITATE/DO NOT INTUBATE per patient and family request 03/11/2021 Patient is seen in follow-up on the regular medical floor. He is currently resting in bed laying on his left side which is his preferred positioning. He is still on airflow high flow oxygen at 60 L and 90% FiO2 plus a nonrebreather mask. Not making much progress. Chest x-ray continues to show diffuse interstitial alveolar infiltrates. Stable compared to previous. D-dimer 6.68. Blood glucose 254. He remains on Lovenox 45 mg subcu twice a day. Continued on vitamin supplements. IV Solu-Medrol. His appetite is good. Working with the incentive spirometer. 03/12/2021 Patient is seen and evaluated in follow-up on the regular medical floor. He is currently resting comfortably in bed. No worsening shortness of breath, cough or congestion. Still dyspneic with exertion and conversation. He is able to be turned down on the airflow to 60 L and 85% FiO2 was then nonrebreather mask. O2 saturations in the low 90s. He remains on bronchodilators, IV Solu-Medrol, vitamin supplements. Lovenox at 45 mg subcu twice a day. Appetite is good. Continues to work well with the incentive spirometer. We will continue with current management; titrate FiO2 as able; patient has been encouraged to use incentive spirometry; inflammatory markers and follow-up chest x-ray tomorrow morning; pulmonary on board and recommending to continue current treatment. 03/13/2021 Patient remains on aivo with FiO2 of 85% and 60 L of oxygen although saturating 99% patient is feeling better bit tachycardic. 03/14/2021 Patient is seen and evaluated and follow-up continues to be on Airvo with a flow rate of 60 and an FiO2 of 82 with 91% oxygen saturation. Patient also continues to use a partial nonrebreather intermittently. Patient states he hasn't been up out of the bed much although continues to rotate from side to side on his own. Patient is tolerating diet with no reported nausea or vomiting noted. Pulmonary is following closely. Blood sugars continue to be elevated and patient is on an insulin drip at 13 mL's per hour currently. Patient also continues with IV Solu-Medrol every 6 hours along with vitamin and zinc supplements and Lovenox has been adjusted to 40 mg subcutaneous daily. Will repeat basic labs along with inflammatory markers and monitor closely. Constitutional: Denied any fatigue denied any fever. Cardio vascular: denied any chest pain, palpitations Gastrointestinal denied any nausea vomiting Pulmonary: As mentioned in the interval history Neurologic denied any new focal deficits All inpatient medications were reviewed and appropriate changes in these medications as dictated in the interval history and assessment and plan. Objective - Vital Signs Vital signs: Vital Signs Temp 97.5 F L 03/14/21 05:40 Pulse 99 03/14/21 05:40 Resp 21 03/14/21 05:40 BP 117/79 03/14/21 05:40 Pulse Ox 92 L 03/14/21 05:40 Intake & Output 03/13/21 03/14/21 03/14/21 18:59 06:59 18:59 Intake Total 139 80.000 Output Total 1500 1500 Balance -1361 -1420.000 Intake: Intake, IV Titration 21 80.000 Amount Insulin Regular 100 unit 21 80.000 In Sodium Chloride 0.9% 100 ml @ Titrate IV .Q0M [facility] Rx#:[id number] Oral 118 Output: Urine 1500 1500 Other: Voiding Method Indwelling Catheter Indwelling Catheter - Exam GENERAL: The patient is alert and oriented x3, not in any acute distress. Well developed, well nourished. HEENT: Pupils are round and equally reacting to light. EOMI. No scleral icterus. No conjunctival pallor. Normocephalic, atraumatic. No pharyngeal erythema. No thyromegaly. CARDIOVASCULAR: S1 and S2 present. No murmurs, rubs, or gallops. PULMONARY: Diminished breath sounds with scattered Bilateral rhonchi noted on exam ABDOMEN: Soft, non-tender, non-distended, normoactive bowel sounds. No palpable organomegaly. MUSCULOSKELETAL: No joint swelling or deformity. EXTREMITIES: No cyanosis, clubbing, or pedal edema. NEUROLOGICAL: Gross neurological examination did not reveal any focal deficits. SKIN: No rashes. - Labs CBC & Chem 7: 03/09/21 04:01 03/10/21 06:34 Labs: Abnormal Lab Results - Last 24 Hours (Table) 03/13/21 03/13/21 03/13/21 Range/Units 06:02 11:55 17:00 POC Glucose (mg/dL) 308 H 509 H (75-99) mg/dL Lactate Dehydrogenase 633 H (120-246) U/L 03/13/21 03/13/21 03/13/21 Range/Units 18:01 18:44 19:27 POC Glucose (mg/dL) 485 H 388 H 324 H (75-99) mg/dL Lactate Dehydrogenase (120-246) U/L 03/13/21 03/13/21 03/13/21 Range/Units 19:57 20:34 21:02 POC Glucose (mg/dL) 332 H 265 H 255 H (75-99) mg/dL Lactate Dehydrogenase (120-246) U/L 03/13/21 03/13/21 03/14/21 Range/Units 21:36 23:33 01:24 POC Glucose (mg/dL) 205 H 176 H 162 H (75-99) mg/dL Lactate Dehydrogenase (120-246) U/L 03/14/21 03/14/21 03/14/21 Range/Units 03:30 05:35 07:33 POC Glucose (mg/dL) 190 H 156 H 282 H (75-99) mg/dL Lactate Dehydrogenase (120-246) U/L Assessment and Plan Assessment: Acute hypoxic respiratory failure secondary to COVID-19 pneumonia. on Airvo 60L fio2 at 90%, saturating well is on IV Solu-Medrol, Lovenox, received Tocilizumab on 03/02/2021 Acute COVID-19 pneumonia with multifocal groundglass opacities with lower lung organizing consolidation. Hyperglycemia secondary to steroids, continue with insulin drip and monitor sugars closely Elevated D-dimer level with no evidence of PE on CTA chest Lactic acidosis secondary to hypoxia improved now Leukopenia Acute kidney injury with creatinine 1.42 on admission. improved. Elevated inflammatory markers Hypertension DVT prophylaxis Lovenox. Plan: Continue with current medications and continue to wean FiO2 as tolerated. Continue with inhalers and IV steroids at this time. Patient is also maintained on insulin drip for elevated blood sugars most likely due to steroids and will continue to monitor closely. Follow-up with repeat basic labs along with inflammatory markers. Patient continues to be on Airvo with a flow rate of 60 and an FiO2 of 90% and also partial nonrebreather intermittently. Patient instructed to continue with prone position as tolerated.
[2021-03-14 15:37] LABS: Glucose,Whole Blood 265 mg/dL (75-99)
[2021-03-14 17:00] LABS: Glucose,Whole Blood 238 mg/dL (75-99)
[2021-03-14 19:25] LABS: Glucose,Whole Blood 208 mg/dL (75-99)
[2021-03-14 21:20] LABS: Glucose,Whole Blood 253 mg/dL (75-99)
[2021-03-14] MEDS: ALPRAZolam 0.5 MG TAB PO PRN (21:49)
[2021-03-14] MEDS: amLODIPine 10 MG TAB PO SCH (21:49)
[2021-03-14 23:15] LABS: Glucose,Whole Blood 221 mg/dL (75-99)
[2021-03-15] MEDS: methylPREDNISolone SOD SUCCI 125 MG/2 ML VIAL IV SCH ×5 (00:01→23:19)
[2021-03-15] MEDS: INSULIN REGULAR 100 UNIT in SODIUM CHLORIDE 0.9% 100 ML IV SCH (00:57)
[2021-03-15 00:59] LABS: Glucose,Whole Blood 177 mg/dL (75-99)
[2021-03-15 03:16] LABS: Glucose,Whole Blood 220 mg/dL (75-99)
[2021-03-15 05:06] LABS: Glucose,Whole Blood 194 mg/dL (75-99)
[2021-03-15 07:00] LABS: Glucose,Whole Blood 167 mg/dL (75-99)
[2021-03-15] MEDS: ENOXAPARIN 40 MG/0.4 ML SYRINGE SQ SCH (09:28)
[2021-03-15] MEDS: ZINC SULFATE 220 MG CAP PO SCH (09:28)
[2021-03-15] MEDS: CHOLECALCIFEROL 25 MCG (1000 IU) TABLET PO SCH (09:29)
[2021-03-15] MEDS: FAMOTIDINE 20 MG TAB PO SCH ×2 (09:29→20:30)
[2021-03-15] MEDS: ASCORBIC ACID 500 MG TAB PO SCH (09:29)
[2021-03-15 09:42] LABS: Glucose,Whole Blood 267 mg/dL (75-99)
[2021-03-15 10:44] LABS: Basophils # (A) 0.03 X 10*3/uL (0.00-0.10); Basophils % (A) 0.2 %; Eosinophils # (A) 0 X 10*3/uL (0.04-0.35); Eosinophils % (A) 0 %; HCT 55.5 % (39.6-50.0); HGB 18.4 g/dL (13.0-17.0); Lymphocytes # (A) 0.46 X 10*3/uL (0.90-5.00); Lymphocytes % (A) 2.8 %; MCH 30.1 pg (27.0-32.0); MCHC 33.2 g/dL (32.0-37.0); MCV 90.7 fL (80.0-97.0); Mean Platelet Volume 10.5 fL (9.5-12.2); Monocytes # (A) 0.73 X 10*3/uL (0.20-1.00); Monocytes % (A) 4.4 %; Neutrophils # (A) 15.33 X 10*3/uL (1.80-7.70); Neutrophils % (A) 91.7 %; Platelet Count 289 X 10*3/uL (140-440); RBC 6.12 X 10*6/uL (4.40-5.60); RDW 13.8 % (11.5-14.5)
[2021-03-15 11:04] LABS: African American GFR (CKD) 115.7 (60.0-200.0); C Reactive Protein <0.4 mg/dL (0.0-0.8); Calcium 8.8 mg/dL (8.7-10.3); Carbon Dioxide 27.6 mmol/L (21.6-31.8); Chloride 100 mmol/L (96-109); Glucose 209 mg/dL (70-110); LDH 550 U/L (120-246); Non-African American GFR(CKD) 99.9 (60.0-200.0); Potassium 5.2 mmol/L (3.5-5.5); Sodium 137 mmol/L (135-145)
[2021-03-15 11:09] LABS: Glucose,Whole Blood 227 mg/dL (75-99)
[2021-03-15] MEDS: SODIUM CHLORIDE 0.9% 1,000 ML IV SCH ×2 (11:34→23:20)
[2021-03-15] MEDS ORDERED: INSULIN ASPART (NovoLOG) 100 UNIT/ML VIAL SQ SCH (12:30)
--- NOTE | 2021-03-15 12:55 | P.PN ---
Subjective Progress Note Date: 03/15/21 55-year-old male patient, diagnosed having COVID-19 infection, as the patient started getting symptomatic approximately 5 days ago. He started having some fevers initially and following that he started having increased cough and shortness of breath and for that reason he came into the hospital. He was di agnosed having COVID-19 pneumonia. In the emergency department, the patient was hypoxic with pulse ox of 70% and he was short of breath. He was placed on 100% nonrebreather facemask and his pulse ox was brought up to 90%. He was hemodynamically stable. His chest x-ray showed bilateral interstitial pulmonary infiltrates most on the lower lobes although difficulties are rather diffuse. His blood work at a time of admission showed normal white cell count of 4.2 with a lymphopenia. His d-dimer is at 1.1, he had an acute kidney injury with a creatinine of 1.4 which improvement in the creatinine is down to 0.9, LDH is significantly elevated at 2539, with a CRP level of 15.4 and appropriate acetone level of 0.4. Coagulation profile is within normal limits. Blood sugar was 168. He also underwent a CT angiogram of the chest that showed no evidence of any pulmonary embolism. There was found to have emphysema and a background in addition to bilateral groundglass pulmonary infiltrates scattered throughout the lung hirsch bilaterally both in the upper and lower lobes. Some minimal areas of consolidation in the lung bases. The rest is essentially consistent with groundglass pulmonary infiltrates. No mediastinal lymphadenopathy. No pulmonary embolism. 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 He was in [place] on his last trip, he started getting symptomatic approximately 5 days ago. He was in [place] and [place] the week prior. It, the patient's oxidation got worse and the patient was placed on high flow oxygen and currently is on 60 L of oxygen by nasal cannula with a 90% FiO2 and a nonrebreather facemask. He is currently on Decadron 6 mg by mouth on a daily basis and the patient is also on Lovenox 40 mg subcu daily. Comorbid conditions include COPD and hypertension. 69 was quite dehydrated as the patient was not taken oral intake and he was quite intravascularly depleted with an acute kidney injury. On 03/03/2021 patient seen in follow-up in the intensive care unit, he is resting in bed on his left side, he is currently on Airvo 60 L and FiO2 of 90% and 100% nonrebreather mask and his pulse ox is 90-95%. He has 0.9 normal saline at 75 ML per hour, no other drips, he status post Tocilizumab 720 mg IV infusion yesterday on 03/02/2021. He is on Decadron 6 mg twice daily, she is on prophylactic dose of Lovenox, CTA chest showed no evidence of pulmonary embolism. Today's d-dimer is 1.16, LDH is 2590, and CRP is 4.6. Clinically patient states he is breathing easier, and she doesn't desaturate as low with repositioning, he has been positioning self in bed, and self proning, tolerating activity well, no nausea vomiting or diarrhea, and today she states she's actually feeling hungry. Today's chest x-ray also bilateral multifocal and confluent opacities consistent with COVID-19 infection stable in appearance compared to days ago. On 03/06/2021 patient seen in follow-up in the intensive care unit. He remains on high flow oxygen, per Airvo at 60 L/m, and FiO2 of 90% in addition to her percent nonrebreather mask with a pulse ox between 85-87%, he is laying on his left side, he is unable to tolerate proning. His IV fluids are infusing at 75 ML per hour, his chest x-ray today shows bilateral interstitial infiltrates that are stable in appearance. Overall seems to be in no acute distress. His labs have been reviewed showing white blood cell, 7.9, hemoglobin of 17, his sodium is 135, the rest of electrolytes were within normal limits, BUN of 29 creatinine of 0.70, AST of 41, ALT of 108, alkaline phosphatase of 109. His last d-dimer from yesterday was 2.88, and patient remains on prophylactic dose of Lovenox at 40 mg once daily, he remains on IV Decadron 6 mg daily. He is on vitamins including vitamin C, vitamin D and zinc, he is on normal saline at 75 ML per hour, his appetite has been fair, as a matter fact his been ordering takeout via [employer]. His blood pressure has been stable, his been afebrile, he is in sinus mechanism. No complaints of chest discomfort no cough. On 03/09/2021 patient seen in follow-up in intensive care unit, he is currently on Airvo at 60 L and FiO2 of 90%, in addition to 100% nonrebreather mask, his pulse ox was around 86-88%, he is very short of breath even with conversation, however in no acute distress, he has been repositioning self in bed, mostly prefers to lay on the left side, his been afebrile, hemodynamically he is stable, he is in sinus mechanism, he is receiving IV fluids at 75 ML per hour, his appetite is fair, and his family has been ordering him takeout food. Today's labs have been reviewed, his white blood cell count is 10.8, hemoglobin is 16.3, his d-dimer 3.79, stable, sodium is 134, the rest of electrolytes are within normal limits, BUN is 22 creatinine 0.64. Remains on Decadron 6 mg twice daily, he remains on Lovenox 40 mg once daily. On nausea vomiting or diarrhea, no chest discomfort, no swollen or tender calves. Patient is requesting to be transferred out of intensive care unit and he would like to go home tomorrow, which we told him that he is not anywhere close to going home yet On 03/13/2021 patient seen in follow-up on medical surgical floor, he is still on Airvo currently at 60 L and FiO2 of 90% in addition to partial rebreather mask and his pulse ox earlier on the full 100% nonrebreather and Airvo was 99% and for that reason the tab was removed from inside the mask and tone in 20 partial rebreather mask. He is still very short of breath with any activity and conversation, but essentially stable, has not gotten worse, his been afebrile. D-dimer is 2.7, his Lovenox will be adjusted, his d-dimer is improving and so are his inflammatory markers, his LDH is down to 633, and CRP is less than 0.4. Patient continues on IV Solu-Medrol 60 g every 6 hours, he is on multivitamins, and his current dose Lovenox is 45 mg subcu twice daily. No nausea vomiting or diarrhea, he is tolerating oral intake. Today's chest x-ray shows multifocal left lung opacities and a left-sided volume loss improved right lung multifocal reticulonodular opacities. On 03/14/2031 patient seen in follow-up on medical surgical floor, continues to require high flow oxygen, remains on Airvo at 60 L and FiO2 of 82% and partial nonrebreather mask 92-94%. He states he is feeling just fine, he is asking when he can go home. Denies any acute distress, his been repositioning self in bed, mostly from side to side. He has been afebrile, hemodynamically has been stable, no complaints of chest discomfort, his last chest x-ray from yesterday showed multifocal left lung opacities and left-sided volume loss that appear to be stable in appearance, and improved right lung multifocal reticulonodular opacities. Yesterday's d-dimer was trending down, and was down to 2.7 and his Lovenox dose was adjusted down to 40 mg once daily, his inflammatory markers were improving. He's been tolerating oral intake, no nausea vomiting or diarrhea. His blood cultures have shown no growth, has had no fever or chills, he remains on high-dose IV steroids 60 mg every 6 hours, IV fluids at 75 ML per hour. Is on multivitamins, and prophylactic dose Lovenox On 03/15/2021 patient seen in follow-up on medical surgical floor, patient continues to require high flow oxygen per Airvo at 60 L and FiO2 of 70%, and maintaining O2 saturations between 86-89%. Nonrebreather mask has been removed, hemodynamically stable, his breathing is stable, no worsening, does have exertional dyspnea, but no acute distress, has been afebrile. On planes of chest discomfort, no cough. Last chest x-ray from couple days ago showed multifocal left lung opacities and left-sided volume loss, with improved right lung multifocal reticulonodular opacities. Patient remains on high-dose IV Solu-Medrol 60 mg every 6 hours, remains on Lovenox 40 mg daily, today's d-dimer is 4.33. White blood cell count is 16.7, hemoglobin is 18.4, electrolytes within normal limits, BUN of 36 and creatinine 0.8. Inflammatory markers are improving, LDH is 550 and CRP is less than 0.4 Objective - Vital Signs Vital signs: Vital Signs Temp 98.4 F 03/15/21 10:00 Pulse 106 H 03/15/21 10:00 Resp 22 03/15/21 10:00 BP 128/79 03/15/21 10:00 Pulse Ox 89 L 03/15/21 10:00 Intake & Output 03/14/21 03/15/21 03/15/21 18:59 06:59 18:59 Intake Total 799.616 63.600 29.575 Output Total 500 2200 Balance 299.616 -2136.400 29.575 Intake: Intake, IV Titration 49.616 63.600 29.575 Amount Insulin Regular 100 unit 49.616 63.600 29.575 In Sodium Chloride 0.9% 100 ml @ Titrate IV .Q0M [facility] Rx#:[id number] Oral 750 Output: Urine 500 2200 Stool 0 0 Other: Voiding Method Indwelling Catheter Indwelling Catheter Indwelling Catheter - Exam GENERAL EXAM: Alert, , 55-year-old white male, laying on his left side in bed on medical surgical unit, on Airvo at 60 L and FiO2 of 70%, with a pulse ox between 86-89% HEAD: Normocephalic/atraumatic. EYES: Normal reaction of pupils, equal size. Conjunctiva pink, sclera white. NOSE: Clear with pink turbinates. THROAT: No erythema or exudates. NECK: No masses, no JVD, no thyroid enlargement, no adenopathy. CHEST: No chest wall deformity. Symmetrical expansion. LUNGS: Equal air entry with diminished breath sounds at the bases, no crackles, no rhonchi no wheezes CVS: Regular rate and rhythm, normal S1 and S2, no gallops, no murmurs, no rubs ABDOMEN: Soft, nontender. No hepatosplenomegaly, normal bowel sounds, no guarding or rigidity. EXTREMITIES: No clubbing, no edema, no cyanosis, 2+ pulses and upper and lower extremities. MUSCULOSKELETAL: Muscle strength and tone normal. SPINE: No scoliosis or deformity SKIN: No rashes CENTRAL NERVOUS SYSTEM: Alert and oriented -3. No focal deficits, tone is normal in all 4 extremities. PSYCHIATRIC: Alert and oriented -3. Appropriate affect. Intact judgment and insight. - Labs CBC & Chem 7: 03/15/21 06:17 03/15/21 06:17 Labs: Abnormal Lab Results - Last 24 Hours (Table) 03/14/21 03/14/21 03/14/21 Range/Units 13:32 15:34 16:59 WBC (4.50-10.00) X 10*3/uL RBC (4.40-5.60) X 10*6/uL Hgb (13.0-17.0) g/dL Hct (39.6-50.0) % Immature Gran # (0.00-0.04) X 10*3/uL Neutrophils # (1.80-7.70) X 10*3/uL Lymphocytes # (0.90-5.00) X 10*3/uL Eosinophils # (0.04-0.35) X 10*3/uL D-Dimer (<0.60) mg/L FEU BUN (9.0-27.0) mg/dL BUN/Creatinine Ratio (12.00-20.00) Ratio Glucose (70-110) mg/dL POC Glucose (mg/dL) 327 H 265 H 238 H (75-99) mg/dL Lactate Dehydrogenase (120-246) U/L 03/14/21 03/14/21 03/14/21 Range/Units 19:24 21:19 23:13 WBC (4.50-10.00) X 10*3/uL RBC (4.40-5.60) X 10*6/uL Hgb (13.0-17.0) g/dL Hct (39.6-50.0) % Immature Gran # (0.00-0.04) X 10*3/uL Neutrophils # (1.80-7.70) X 10*3/uL Lymphocytes # (0.90-5.00) X 10*3/uL Eosinophils # (0.04-0.35) X 10*3/uL D-Dimer (<0.60) mg/L FEU BUN (9.0-27.0) mg/dL BUN/Creatinine Ratio (12.00-20.00) Ratio Glucose (70-110) mg/dL POC Glucose (mg/dL) 208 H 253 H 221 H (75-99) mg/dL Lactate Dehydrogenase (120-246) U/L 03/15/21 03/15/21 03/15/21 Range/Units 00:57 03:14 05:04 WBC (4.50-10.00) X 10*3/uL RBC (4.40-5.60) X 10*6/uL Hgb (13.0-17.0) g/dL Hct (39.6-50.0) % Immature Gran # (0.00-0.04) X 10*3/uL Neutrophils # (1.80-7.70) X 10*3/uL Lymphocytes # (0.90-5.00) X 10*3/uL Eosinophils # (0.04-0.35) X 10*3/uL D-Dimer (<0.60) mg/L FEU BUN (9.0-27.0) mg/dL BUN/Creatinine Ratio (12.00-20.00) Ratio Glucose (70-110) mg/dL POC Glucose (mg/dL) 177 H 220 H 194 H (75-99) mg/dL Lactate Dehydrogenase (120-246) U/L 03/15/21 03/15/21 03/15/21 Range/Units 06:17 06:17 06:17 WBC 16.70 H (4.50-10.00) X 10*3/uL RBC 6.12 H (4.40-5.60) X 10*6/uL Hgb 18.4 H (13.0-17.0) g/dL Hct 55.5 H (39.6-50.0) % Immature Gran # 0.15 H (0.00-0.04) X 10*3/uL Neutrophils # 15.33 H (1.80-7.70) X 10*3/uL Lymphocytes # 0.46 L (0.90-5.00) X 10*3/uL Eosinophils # 0 L (0.04-0.35) X 10*3/uL D-Dimer 4.33 H (<0.60) mg/L FEU BUN 36.0 H (9.0-27.0) mg/dL BUN/Creatinine Ratio 45.00 H (12.00-20.00) Ratio Glucose 209 H (70-110) mg/dL POC Glucose (mg/dL) (75-99) mg/dL Lactate Dehydrogenase 550 H (120-246) U/L 03/15/21 03/15/21 03/15/21 Range/Units 06:56 09:31 11:08 WBC (4.50-10.00) X 10*3/uL RBC (4.40-5.60) X 10*6/uL Hgb (13.0-17.0) g/dL Hct (39.6-50.0) % Immature Gran # (0.00-0.04) X 10*3/uL Neutrophils # (1.80-7.70) X 10*3/uL Lymphocytes # (0.90-5.00) X 10*3/uL Eosinophils # (0.04-0.35) X 10*3/uL D-Dimer (<0.60) mg/L FEU BUN (9.0-27.0) mg/dL BUN/Creatinine Ratio (12.00-20.00) Ratio Glucose (70-110) mg/dL POC Glucose (mg/dL) 167 H 267 H 227 H (75-99) mg/dL Lactate Dehydrogenase (120-246) U/L Assessment and Plan Plan: Assessment: #1. Acute COVID-19 related pneumonia with diffuse but the pulmonary infiltrates/groundglass changes. Patient started getting symptoms approximately 5 days ago and the patient was diagnosed having COVID-19 infection on 03/01/2021 and a diagnosis was established at [facility]. He is quite hypoxic and he presented with significant shortness of breath and hypoxemia the time of admission and currently is on high flow oxygen 60 L with an FiO2 of 90% and the patient is also utilizing 100% on a beta facemasks. Transferred to the intensive care unit on 03/02/2021 and received a dose of Tocilizumab on 03/02/2021. On 03/13/2021 remains on Airvo at 60 L and FiO2 of 90% in addition to partial rebreather mask #2. Acute hypoxic respiratory failure secondary to above #3. elevated inflammatory markers secondary to COVID-19 related i nfection/pneumonia, and inflammatory markers are improving #4. COPD #5. acute kidney injury, resolved #6. hypertension Plan: Remains on Airvo, at 60 L and FiO2 is down to 70% Partial rebreather mask removed, breathing comfortably Continue current dose Solu-Medrol, increase Lovenox to 45 mg twice daily Continue following d-dimer on a daily basis Continue multivitamins, continue Xanax Encouraged patient to self prone in bed, and reposition We'll continue to closely follow Making slow improvement I performed a history & physical examination of the patient and discussed their management with my nurse practitioner, Carola Bourgeois. I reviewed the nurse practitioner's note and agree with the documented findings and plan of care. Lung sounds are positive for diminished breath sounds. The findings and the impression was discussed with the patient. I attest to the documentation by the nurse practitioner. Time with Patient: Less than 30
[2021-03-15] MEDS ORDERED: INSULIN DETEMIR (LEVEMIR) 100 UNIT/ML SYR SQ STA (13:37)
[2021-03-15 16:50] LABS: Glucose,Whole Blood 200 mg/dL (75-99)
[2021-03-15] MEDS: ALBUTEROL HFA INHALER INHALATION PRN ×2 (17:02→21:04)
--- NOTE | 2021-03-15 17:02 | P.PN ---
Subjective Progress Note Date: 03/15/21 Acute hypoxic respiratory failure secondary to COVID-19 pneumonia. on Airvo 60L fio2 90% Acute COVID-19 pneumonia with multifocal groundglass opacities with lower lung organizing consolidation. Elevated D-dimer level with no evidence of PE on CTA chest Lactic acidosis secondary to hypoxia 55-year-old male with a known history of hypertension and previous history of smoking presents to ER due to worsening shortness of breath since Saturday. Patient states that he flew from [place] about 3 days ago and since then he has been having fever exertional dyspnea and cough and shortness of breath which has been worsening since then. Patient was seen at outpatient clinic today and was diagnosed with COVID-19. Patient was found to be hypoxic and was having exertional dyspnea and sent to ER. Pulse ox was in the 70s as reported. Patient was dyspneic on on admission and was placed on 100% nonrebreather at 15 L oxygen and FiO2 90%. Her oxygen saturations went up to 88 to 90%. On admission blood pressure was 151/88 respiratory rate 30 heart rate 129 and pulse ox 88% on 15 L oxygen via nonrebreather. Chest x-ray showed interval development of interstitial perihilar and basilar infiltrates compatible with COVID-19 pneumonia. CTA chest showed no evidence of PE. Multifocal and confluent groundglass opacities with lower lung organizing consolidation bilaterally consistent with COVID-19 infection EKG showed sinus tachycardia 03/10/2021 Patient is seen and evaluated in follow-up on the regular medical floor. He is currently resting fairly comfortably in bed. Awake and alert in no acute distr ess. He is still requiring AirVo high flow oxygen at 60 L and 90% FiO2 plus a nonrebreather mask to maintain O2 saturations in the low 90s. Currently afebrile. Hemodynamically stable. Blood cultures reveal no growth. D-dimer up to 5.12. Sodium 135. Potassium 4.7. Creatinine 0.7. Glucose 200. LDH 832. C-reactive protein less than 0.4. He remains on Decadron, Lovenox, vitamin supplements. Pulmonary on board and recommending to increase Lovenox to 45 mg subcu twice a day; Decadron switched to IV Solu-Medrol 60 mg every 6 hours; continue to titrate FiO2 as able Repeat chest x-ray tomorrow morning; CODE STATUS has been changed to DO NOT RESUSCITATE/DO NOT INTUBATE per patient and family request 03/11/2021 Patient is seen in follow-up on the regular medical floor. He is currently resting in bed laying on his left side which is his preferred positioning. He is still on airflow high flow oxygen at 60 L and 90% FiO2 plus a nonrebreather mask. Not making much progress. Chest x-ray continues to show diffuse interstitial alveolar infiltrates. Stable compared to previous. D-dimer 6.68. Blood glucose 254. He remains on Lovenox 45 mg subcu twice a day. Continued on vitamin supplements. IV Solu-Medrol. His appetite is good. Working with the incentive spirometer. 03/12/2021 Patient is seen and evaluated in follow-up on the regular medical floor. He is currently resting comfortably in bed. No worsening shortness of breath, cough or congestion. Still dyspneic with exertion and conversation. He is able to be turned down on the airflow to 60 L and 85% FiO2 was then nonrebreather mask. O2 saturations in the low 90s. He remains on bronchodilators, IV Solu-Medrol, vitamin supplements. Lovenox at 45 mg subcu twice a day. Appetite is good. Continues to work well with the incentive spirometer. We will continue with current management; titrate FiO2 as able; patient has been encouraged to use incentive spirometry; inflammatory markers and follow-up chest x-ray tomorrow morning; pulmonary on board and recommending to continue current treatment. 03/13/2021 Patient remains on aivo with FiO2 of 85% and 60 L of oxygen although saturating 99% patient is feeling better bit tachycardic. 03/14/2021 Patient is seen and evaluated and follow-up continues to be on Airvo with a flow rate of 60 and an FiO2 of 82 with 91% oxygen saturation. Patient also continues to use a partial nonrebreather intermittently. Patient states he hasn't been up out of the bed much although continues to rotate from side to side on his own. Patient is tolerating diet with no reported nausea or vomiting noted. Pulmonary is following closely. Blood sugars continue to be elevated and patient is on an insulin drip at 13 mL's per hour currently. Patient also continues with IV Solu-Medrol every 6 hours along with vitamin and zinc supplements and Lovenox has been adjusted to 40 mg subcutaneous daily. Will repeat basic labs along with inflammatory markers and monitor closely. 03/15/2021 Patient is seen in follow-up continues on airvo with titrating as tolerated current flow rate is 60 and FiO2 has been decreased to 70 and maintaining 87-90% oxygen saturation. Patient continues on IV steroids every 6 hours and was on insulin drip and will transition to sliding scale along with long-acting and monitor closely. Inflammatory markers trending down although d-dimer is elevated again at 4.33 and increasing Lovenox to twice daily. White blood count 16.70 and hemoglobin is 18.4. Constitutional: Denied any fatigue denied any fever. Cardio vascular: denied any chest pain, palpitations Gastrointestinal denied any nausea vomiting Pulmonary: As mentioned in the interval history Neurologic denied any new focal deficits All inpatient medications were reviewed and appropriate changes in these medications as dictated in the interval history and assessment and plan. Objective - Vital Signs Vital signs: Vital Signs Temp 98.4 F 03/15/21 10:00 Pulse 106 H 03/15/21 10:00 Resp 22 03/15/21 10:00 BP 128/79 03/15/21 10:00 Pulse Ox 89 L 03/15/21 10:00 Intake & Output 03/14/21 03/15/21 03/15/21 18:59 06:59 18:59 Intake Total 799.616 63.600 29.575 Output Total 500 2200 Balance 299.616 -2136.400 29.575 Intake: Intake, IV Titration 49.616 63.600 29.575 Amount Insulin Regular 100 unit 49.616 63.600 29.575 In Sodium Chloride 0.9% 100 ml @ Titrate IV .Q0M [facility] Rx#:[id number] Oral 750 Output: Urine 500 2200 Stool 0 0 Other: Voiding Method Indwelling Catheter Indwelling Catheter Indwelling Catheter - Exam GENERAL: The patient is alert and oriented x3, not in any acute distress. Well developed, well nourished. HEENT: Pupils are round and equally reacting to light. EOMI. No scleral icterus. No conjunctival pallor. Normocephalic, atraumatic. No pharyngeal erythema. No thyromegaly. CARDIOVASCULAR: S1 and S2 present. No murmurs, rubs, or gallops. PULMONARY: Diminished breath sounds with scattered Bilateral rhonchi noted on exam ABDOMEN: Soft, non-tender, non-distended, normoactive bowel sounds. No palpable organomegaly. MUSCULOSKELETAL: No joint swelling or deformity. EXTREMITIES: No cyanosis, clubbing, or pedal edema. NEUROLOGICAL: Gross neurological examination did not reveal any focal deficits. SKIN: No rashes. - Labs CBC & Chem 7: 03/15/21 06:17 03/15/21 06:17 Labs: Abnormal Lab Results - Last 24 Hours (Table) 03/14/21 03/14/21 03/14/21 Range/Units 13:32 15:34 16:59 WBC (4.50-10.00) X 10*3/uL RBC (4.40-5.60) X 10*6/uL Hgb (13.0-17.0) g/dL Hct (39.6-50.0) % Immature Gran # (0.00-0.04) X 10*3/uL Neutrophils # (1.80-7.70) X 10*3/uL Lymphocytes # (0.90-5.00) X 10*3/uL Eosinophils # (0.04-0.35) X 10*3/uL D-Dimer (<0.60) mg/L FEU BUN (9.0-27.0) mg/dL BUN/Creatinine Ratio (12.00-20.00) Ratio Glucose (70-110) mg/dL POC Glucose (mg/dL) 327 H 265 H 238 H (75-99) mg/dL Lactate Dehydrogenase (120-246) U/L 03/14/21 03/14/21 03/14/21 Range/Units 19:24 21:19 23:13 WBC (4.50-10.00) X 10*3/uL RBC (4.40-5.60) X 10*6/uL Hgb (13.0-17.0) g/dL Hct (39.6-50.0) % Immature Gran # (0.00-0.04) X 10*3/uL Neutrophils # (1.80-7.70) X 10*3/uL Lymphocytes # (0.90-5.00) X 10*3/uL Eosinophils # (0.04-0.35) X 10*3/uL D-Dimer (<0.60) mg/L FEU BUN (9.0-27.0) mg/dL BUN/Creatinine Ratio (12.00-20.00) Ratio Glucose (70-110) mg/dL POC Glucose (mg/dL) 208 H 253 H 221 H (75-99) mg/dL Lactate Dehydrogenase (120-246) U/L 03/15/21 03/15/21 03/15/21 Range/Units 00:57 03:14 05:04 WBC (4.50-10.00) X 10*3/uL RBC (4.40-5.60) X 10*6/uL Hgb (13.0-17.0) g/dL Hct (39.6-50.0) % Immature Gran # (0.00-0.04) X 10*3/uL Neutrophils # (1.80-7.70) X 10*3/uL Lymphocytes # (0.90-5.00) X 10*3/uL Eosinophils # (0.04-0.35) X 10*3/uL D-Dimer (<0.60) mg/L FEU BUN (9.0-27.0) mg/dL BUN/Creatinine Ratio (12.00-20.00) Ratio Glucose (70-110) mg/dL POC Glucose (mg/dL) 177 H 220 H 194 H (75-99) mg/dL Lactate Dehydrogenase (120-246) U/L 03/15/21 03/15/21 03/15/21 Range/Units 06:17 06:17 06:17 WBC 16.70 H (4.50-10.00) X 10*3/uL RBC 6.12 H (4.40-5.60) X 10*6/uL Hgb 18.4 H (13.0-17.0) g/dL Hct 55.5 H (39.6-50.0) % Immature Gran # 0.15 H (0.00-0.04) X 10*3/uL Neutrophils # 15.33 H (1.80-7.70) X 10*3/uL Lymphocytes # 0.46 L (0.90-5.00) X 10*3/uL Eosinophils # 0 L (0.04-0.35) X 10*3/uL D-Dimer 4.33 H (<0.60) mg/L FEU BUN 36.0 H (9.0-27.0) mg/dL BUN/Creatinine Ratio 45.00 H (12.00-20.00) Ratio Glucose 209 H (70-110) mg/dL POC Glucose (mg/dL) (75-99) mg/dL Lactate Dehydrogenase 550 H (120-246) U/L 03/15/21 03/15/21 03/15/21 Range/Units 06:56 09:31 11:08 WBC (4.50-10.00) X 10*3/uL RBC (4.40-5.60) X 10*6/uL Hgb (13.0-17.0) g/dL Hct (39.6-50.0) % Immature Gran # (0.00-0.04) X 10*3/uL Neutrophils # (1.80-7.70) X 10*3/uL Lymphocytes # (0.90-5.00) X 10*3/uL Eosinophils # (0.04-0.35) X 10*3/uL D-Dimer (<0.60) mg/L FEU BUN (9.0-27.0) mg/dL BUN/Creatinine Ratio (12.00-20.00) Ratio Glucose (70-110) mg/dL POC Glucose (mg/dL) 167 H 267 H 227 H (75-99) mg/dL Lactate Dehydrogenase (120-246) U/L Assessment and Plan Assessment: Acute hypoxic respiratory failure secondary to COVID-19 pneumonia. on Airvo 60L fio2 at 70%, saturating well is on IV Solu-Medrol, Lovenox, received Tocilizumab on 03/02/2021 Acute COVID-19 pneumonia with multifocal groundglass opacities with lower lung organizing consolidation. Hyperglycemia secondary to steroids, we'll transition to sliding scale and long- acting and continue to monitor Accu-Cheks before meals and at bedtime Elevated D-dimer level with no evidence of PE on CTA chest, d-dimer at 4.33 and will increase Lovenox to twice daily Lactic acidosis secondary to hypoxia improved now Leukopenia Acute kidney injury with creatinine 1.42, improved current creatinine is 0.8 Elevated inflammatory markers Hypertension DVT prophylaxis Lovenox. Plan: Continue with current medications and continue to wean FiO2 as tolerated. Continue with inhalers and IV steroids at this time. Will transition to sliding scale and long-acting and continue to monitor Accu-Cheks before meals and at bedtime and discontinue insulin drip Patient continues to be on Airvo with a flow rate of 60 and an FiO2 of 70% pulmonary is following.. Patient instructed to continue with prone position as tolerated.
[2021-03-15] MEDS: INSULIN ASPART (NovoLOG) 100 UNIT/ML VIAL SQ SCH ×2 (17:25→21:09)
[2021-03-15] MEDS: ENOXAPARIN 60 MG/0.6 ML SYRINGE SQ SCH (20:30)
[2021-03-15] MEDS: amLODIPine 10 MG TAB PO SCH (20:31)
[2021-03-15] MEDS: ALPRAZolam 0.5 MG TAB PO PRN (20:33)
[2021-03-15 20:57] LABS: Glucose,Whole Blood 312 mg/dL (75-99)
[2021-03-16] MEDS: methylPREDNISolone SOD SUCCI 125 MG/2 ML VIAL IV SCH ×3 (05:31→16:59)
[2021-03-16 07:00] LABS: Glucose,Whole Blood 277 mg/dL (75-99)
[2021-03-16] MEDS ORDERED: INSULIN DETEMIR (LEVEMIR) 100 UNIT/ML SYR SQ SCH (07:00)
[2021-03-16] MEDS: ZINC SULFATE 220 MG CAP PO SCH (07:18)
[2021-03-16] MEDS: ASCORBIC ACID 500 MG TAB PO SCH (07:18)
[2021-03-16] MEDS: FAMOTIDINE 20 MG TAB PO SCH ×2 (07:18→20:54)
[2021-03-16] MEDS: INSULIN ASPART (NovoLOG) 100 UNIT/ML VIAL SQ SCH ×4 (07:18→20:54)
[2021-03-16] MEDS: ENOXAPARIN 60 MG/0.6 ML SYRINGE SQ SCH ×2 (07:19→20:53)
[2021-03-16] MEDS: CHOLECALCIFEROL 25 MCG (1000 IU) TABLET PO SCH (07:19)
[2021-03-16] MEDS: ALBUTEROL HFA INHALER INHALATION PRN ×3 (08:49→18:31)
[2021-03-16 11:35] LABS: Glucose,Whole Blood 206 mg/dL (75-99)
--- NOTE | 2021-03-16 12:29 | P.PN ---
Subjective Progress Note Date: 03/16/21 55-year-old male patient, diagnosed having COVID-19 infection, as the patient started getting symptomatic approximately 5 days ago. He started having some fevers initially and following that he started having increased cough and shortness of breath and for that reason he came into the hospital. He was di agnosed having COVID-19 pneumonia. In the emergency department, the patient was hypoxic with pulse ox of 70% and he was short of breath. He was placed on 100% nonrebreather facemask and his pulse ox was brought up to 90%. He was hemodynamically stable. His chest x-ray showed bilateral interstitial pulmonary infiltrates most on the lower lobes although difficulties are rather diffuse. His blood work at a time of admission showed normal white cell count of 4.2 with a lymphopenia. His d-dimer is at 1.1, he had an acute kidney injury with a creatinine of 1.4 which improvement in the creatinine is down to 0.9, LDH is significantly elevated at 2539, with a CRP level of 15.4 and appropriate acetone level of 0.4. Coagulation profile is within normal limits. Blood sugar was 168. He also underwent a CT angiogram of the chest that showed no evidence of any pulmonary embolism. There was found to have emphysema and a background in addition to bilateral groundglass pulmonary infiltrates scattered throughout the lung hirsch bilaterally both in the upper and lower lobes. Some minimal areas of consolidation in the lung bases. The rest is essentially consistent with groundglass pulmonary infiltrates. No mediastinal lymphadenopathy. No pulmonary embolism. 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 He was in [place] on his last trip, he started getting symptomatic approximately 5 days ago. He was in [place] and [place] the week prior. It, the patient's oxidation got worse and the patient was placed on high flow oxygen and currently is on 60 L of oxygen by nasal cannula with a 90% FiO2 and a nonrebreather facemask. He is currently on Decadron 6 mg by mouth on a daily basis and the patient is also on Lovenox 40 mg subcu daily. Comorbid conditions include COPD and hypertension. 69 was quite dehydrated as the patient was not taken oral intake and he was quite intravascularly depleted with an acute kidney injury. On 03/03/2021 patient seen in follow-up in the intensive care unit, he is resting in bed on his left side, he is currently on Airvo 60 L and FiO2 of 90% and 100% nonrebreather mask and his pulse ox is 90-95%. He has 0.9 normal saline at 75 ML per hour, no other drips, he status post Tocilizumab 720 mg IV infusion yesterday on 03/02/2021. He is on Decadron 6 mg twice daily, she is on prophylactic dose of Lovenox, CTA chest showed no evidence of pulmonary embolism. Today's d-dimer is 1.16, LDH is 2590, and CRP is 4.6. Clinically patient states he is breathing easier, and she doesn't desaturate as low with repositioning, he has been positioning self in bed, and self proning, tolerating activity well, no nausea vomiting or diarrhea, and today she states she's actually feeling hungry. Today's chest x-ray also bilateral multifocal and confluent opacities consistent with COVID-19 infection stable in appearance compared to days ago. On 03/06/2021 patient seen in follow-up in the intensive care unit. He remains on high flow oxygen, per Airvo at 60 L/m, and FiO2 of 90% in addition to her percent nonrebreather mask with a pulse ox between 85-87%, he is laying on his left side, he is unable to tolerate proning. His IV fluids are infusing at 75 ML per hour, his chest x-ray today shows bilateral interstitial infiltrates that are stable in appearance. Overall seems to be in no acute distress. His labs have been reviewed showing white blood cell, 7.9, hemoglobin of 17, his sodium is 135, the rest of electrolytes were within normal limits, BUN of 29 creatinine of 0.70, AST of 41, ALT of 108, alkaline phosphatase of 109. His last d-dimer from yesterday was 2.88, and patient remains on prophylactic dose of Lovenox at 40 mg once daily, he remains on IV Decadron 6 mg daily. He is on vitamins including vitamin C, vitamin D and zinc, he is on normal saline at 75 ML per hour, his appetite has been fair, as a matter fact his been ordering takeout via [employer]. His blood pressure has been stable, his been afebrile, he is in sinus mechanism. No complaints of chest discomfort no cough. On 03/09/2021 patient seen in follow-up in intensive care unit, he is currently on Airvo at 60 L and FiO2 of 90%, in addition to 100% nonrebreather mask, his pulse ox was around 86-88%, he is very short of breath even with conversation, however in no acute distress, he has been repositioning self in bed, mostly prefers to lay on the left side, his been afebrile, hemodynamically he is stable, he is in sinus mechanism, he is receiving IV fluids at 75 ML per hour, his appetite is fair, and his family has been ordering him takeout food. Today's labs have been reviewed, his white blood cell count is 10.8, hemoglobin is 16.3, his d-dimer 3.79, stable, sodium is 134, the rest of electrolytes are within normal limits, BUN is 22 creatinine 0.64. Remains on Decadron 6 mg twice daily, he remains on Lovenox 40 mg once daily. On nausea vomiting or diarrhea, no chest discomfort, no swollen or tender calves. Patient is requesting to be transferred out of intensive care unit and he would like to go home tomorrow, which we told him that he is not anywhere close to going home yet On 03/13/2021 patient seen in follow-up on medical surgical floor, he is still on Airvo currently at 60 L and FiO2 of 90% in addition to partial rebreather mask and his pulse ox earlier on the full 100% nonrebreather and Airvo was 99% and for that reason the tab was removed from inside the mask and tone in 20 partial rebreather mask. He is still very short of breath with any activity and conversation, but essentially stable, has not gotten worse, his been afebrile. D-dimer is 2.7, his Lovenox will be adjusted, his d-dimer is improving and so are his inflammatory markers, his LDH is down to 633, and CRP is less than 0.4. Patient continues on IV Solu-Medrol 60 g every 6 hours, he is on multivitamins, and his current dose Lovenox is 45 mg subcu twice daily. No nausea vomiting or diarrhea, he is tolerating oral intake. Today's chest x-ray shows multifocal left lung opacities and a left-sided volume loss improved right lung multifocal reticulonodular opacities. On 03/14/2031 patient seen in follow-up on medical surgical floor, continues to require high flow oxygen, remains on Airvo at 60 L and FiO2 of 82% and partial nonrebreather mask 92-94%. He states he is feeling just fine, he is asking when he can go home. Denies any acute distress, his been repositioning self in bed, mostly from side to side. He has been afebrile, hemodynamically has been stable, no complaints of chest discomfort, his last chest x-ray from yesterday showed multifocal left lung opacities and left-sided volume loss that appear to be stable in appearance, and improved right lung multifocal reticulonodular opacities. Yesterday's d-dimer was trending down, and was down to 2.7 and his Lovenox dose was adjusted down to 40 mg once daily, his inflammatory markers were improving. He's been tolerating oral intake, no nausea vomiting or diarrhea. His blood cultures have shown no growth, has had no fever or chills, he remains on high-dose IV steroids 60 mg every 6 hours, IV fluids at 75 ML per hour. Is on multivitamins, and prophylactic dose Lovenox On 03/15/2021 patient seen in follow-up on medical surgical floor, patient continues to require high flow oxygen per Airvo at 60 L and FiO2 of 70%, and maintaining O2 saturations between 86-89%. Nonrebreather mask has been removed, hemodynamically stable, his breathing is stable, no worsening, does have exertional dyspnea, but no acute distress, has been afebrile. On planes of chest discomfort, no cough. Last chest x-ray from couple days ago showed multifocal left lung opacities and left-sided volume loss, with improved right lung multifocal reticulonodular opacities. Patient remains on high-dose IV Solu-Medrol 60 mg every 6 hours, remains on Lovenox 40 mg daily, today's d-dimer is 4.33. White blood cell count is 16.7, hemoglobin is 18.4, electrolytes within normal limits, BUN of 36 and creatinine 0.8. Inflammatory markers are improving, LDH is 550 and CRP is less than 0.4 On 03/16/2021 patient seen in follow-up on medical surgical floor. He still remains on Airvo however FiO2 is currently down to 65%, and the flow is currently at 60 L/m, his pulse ox is 90-94%, seems to be breathing comfortably, appears to be in no acute distress, he sleep right now, we did not wake him. His vital signs have been stable in the last 24 hours, his had no fever or chills, no new chest x-ray, no new labs. 0.9 is infusing at 75 ML per hour, he remains on Lovenox 45 mg twice daily, follow d-dimer will be ordered for tomhi row, and patient remains on Solu-Medrol at 60 mg every 6 hours. Objective - Vital Signs Vital signs: Vital Signs Temp 98.8 F 03/16/21 10:00 Pulse 100 03/16/21 10:00 Resp 20 03/16/21 10:00 BP 125/86 03/16/21 10:00 Pulse Ox 94 L 03/16/21 10:00 Intake & Output 03/15/21 03/16/21 03/16/21 18:59 06:59 18:59 Intake Total 29.575 Output Total 800 1450 300 Balance -770.425 -1450 -300 Intake: Intake, IV Titration 29.575 Amount Insulin Regular 100 unit 29.575 In Sodium Chloride 0.9% 100 ml @ Titrate IV .Q0M [facility] Rx#:[id number] Output: Urine 800 1450 300 Stool 0 Other: Voiding Method Indwelling Catheter Urinal Urinal # Voids 2 # Bowel Movements 1 - Exam GENERAL EXAM: Alert, , 55-year-old white male, laying on his left side in bed on medical surgical unit, on Airvo at 60 L and FiO2 of %65, with a pulse ox between 90-94% HEAD: Normocephalic/atraumatic. EYES: Normal reaction of pupils, equal size. Conjunctiva pink, sclera white. NOSE: Clear with pink turbinates. THROAT: No erythema or exudates. NECK: No masses, no JVD, no thyroid enlargement, no adenopathy. CHEST: No chest wall deformity. Symmetrical expansion. LUNGS: Equal air entry with diminished breath sounds at the bases, no crackles, no rhonchi no wheezes CVS: Regular rate and rhythm, normal S1 and S2, no gallops, no murmurs, no rubs ABDOMEN: Soft, nontender. No hepatosplenomegaly, normal bowel sounds, no guar ding or rigidity. EXTREMITIES: No clubbing, no edema, no cyanosis, 2+ pulses and upper and lower extremities. MUSCULOSKELETAL: Muscle strength and tone normal. SPINE: No scoliosis or deformity SKIN: No rashes CENTRAL NERVOUS SYSTEM: Alert and oriented -3. No focal deficits, tone is normal in all 4 extremities. PSYCHIATRIC: Alert and oriented -3. Appropriate affect. Intact judgment and insight. - Labs CBC & Chem 7: 03/15/21 06:17 03/15/21 06:17 Labs: Abnormal Lab Results - Last 24 Hours (Table) 03/15/21 03/15/21 03/16/21 Range/Units 16:48 20:55 06:58 POC Glucose (mg/dL) 200 H 312 H 277 H (75-99) mg/dL 03/16/21 Range/Units 11:34 POC Glucose (mg/dL) 206 H (75-99) mg/dL Assessment and Plan Plan: Assessment: #1. Acute COVID-19 related pneumonia with diffuse but the pulmonary infiltrates/groundglass changes. Patient started getting symptoms approximately 5 days ago and the patient was diagnosed having COVID-19 infection on 03/01/2021 and a diagnosis was established at [facility]. He is quite hypoxic and he presented with significant shortness of breath and hypoxemia the time of admission and currently is on high flow oxygen 60 L with an FiO2 of 90% and the patient is also utilizing 100% on a beta facemasks. Transferred to the intensive care unit on 03/02/2021 and received a dose of Tocilizumab on 03/02/2021. On 03/13/2021 remains on Airvo at 60 L and FiO2 of 90% in addition to partial rebreather mask #2. Acute hypoxic respiratory failure secondary to above #3. elevated inflammatory markers secondary to COVID-19 related i nfection/pneumonia, and inflammatory markers are improving #4. COPD #5. acute kidney injury, resolved #6. hypertension Plan: Remains on Airvo, at 60 L and FiO2 is down to 65% Continue current dose Solu-Medrol, increase Lovenox to 45 mg twice daily Continue following d-dimer on a daily basis We'll obtain a follow-up d-dimer today, and tomorrow Continue multivitamins, continue Solu-Medrol We'll continue to closely follow Making slow improvement I performed a history & physical examination of the patient and discussed their management with my nurse practitioner, Carola Bourgeois. I reviewed the nurse practitioner's note and agree with the documented findings and plan of care. Lung sounds are positive for diminished breath sounds. The findings and the impression was discussed with the patient. I attest to the documentation by the nurse practitioner. Time with Patient: Less than 30
[2021-03-16] MEDS: SODIUM CHLORIDE 0.9% 1,000 ML IV SCH (12:40)
[2021-03-16 16:41] LABS: Glucose,Whole Blood 377 mg/dL (75-99)
--- NOTE | 2021-03-16 16:44 | P.PN ---
Subjective Progress Note Date: 03/16/21 Acute hypoxic respiratory failure secondary to COVID-19 pneumonia. on Airvo 60L fio2 90% Acute COVID-19 pneumonia with multifocal groundglass opacities with lower lung organizing consolidation. Elevated D-dimer level with no evidence of PE on CTA chest Lactic acidosis secondary to hypoxia 55-year-old male with a known history of hypertension and previous history of smoking presents to ER due to worsening shortness of breath since Saturday. Patient states that he flew from [place] about 3 days ago and since then he has been having fever exertional dyspnea and cough and shortness of breath which has been worsening since then. Patient was seen at outpatient clinic today and was diagnosed with COVID-19. Patient was found to be hypoxic and was having exertional dyspnea and sent to ER. Pulse ox was in the 70s as reported. Patient was dyspneic on on admission and was placed on 100% nonrebreather at 15 L oxygen and FiO2 90%. Her oxygen saturations went up to 88 to 90%. On admission blood pressure was 151/88 respiratory rate 30 heart rate 129 and pulse ox 88% on 15 L oxygen via nonrebreather. Chest x-ray showed interval development of interstitial perihilar and basilar infiltrates compatible with COVID-19 pneumonia. CTA chest showed no evidence of PE. Multifocal and confluent groundglass opacities with lower lung organizing consolidation bilaterally consistent with COVID-19 infection EKG showed sinus tachycardia 03/10/2021 Patient is seen and evaluated in follow-up on the regular medical floor. He is currently resting fairly comfortably in bed. Awake and alert in no acute distr ess. He is still requiring AirVo high flow oxygen at 60 L and 90% FiO2 plus a nonrebreather mask to maintain O2 saturations in the low 90s. Currently afebrile. Hemodynamically stable. Blood cultures reveal no growth. D-dimer up to 5.12. Sodium 135. Potassium 4.7. Creatinine 0.7. Glucose 200. LDH 832. C-reactive protein less than 0.4. He remains on Decadron, Lovenox, vitamin supplements. Pulmonary on board and recommending to increase Lovenox to 45 mg subcu twice a day; Decadron switched to IV Solu-Medrol 60 mg every 6 hours; continue to titrate FiO2 as able Repeat chest x-ray tomorrow morning; CODE STATUS has been changed to DO NOT RESUSCITATE/DO NOT INTUBATE per patient and family request 03/11/2021 Patient is seen in follow-up on the regular medical floor. He is currently resting in bed laying on his left side which is his preferred positioning. He is still on airflow high flow oxygen at 60 L and 90% FiO2 plus a nonrebreather mask. Not making much progress. Chest x-ray continues to show diffuse interstitial alveolar infiltrates. Stable compared to previous. D-dimer 6.68. Blood glucose 254. He remains on Lovenox 45 mg subcu twice a day. Continued on vitamin supplements. IV Solu-Medrol. His appetite is good. Working with the incentive spirometer. 03/12/2021 Patient is seen and evaluated in follow-up on the regular medical floor. He is currently resting comfortably in bed. No worsening shortness of breath, cough or congestion. Still dyspneic with exertion and conversation. He is able to be turned down on the airflow to 60 L and 85% FiO2 was then nonrebreather mask. O2 saturations in the low 90s. He remains on bronchodilators, IV Solu-Medrol, vitamin supplements. Lovenox at 45 mg subcu twice a day. Appetite is good. Continues to work well with the incentive spirometer. We will continue with current management; titrate FiO2 as able; patient has been encouraged to use incentive spirometry; inflammatory markers and follow-up chest x-ray tomorrow morning; pulmonary on board and recommending to continue current treatment. 03/13/2021 Patient remains on aivo with FiO2 of 85% and 60 L of oxygen although saturating 99% patient is feeling better bit tachycardic. 03/14/2021 Patient is seen and evaluated and follow-up continues to be on Airvo with a flow rate of 60 and an FiO2 of 82 with 91% oxygen saturation. Patient also continues to use a partial nonrebreather intermittently. Patient states he hasn't been up out of the bed much although continues to rotate from side to side on his own. Patient is tolerating diet with no reported nausea or vomiting noted. Pulmonary is following closely. Blood sugars continue to be elevated and patient is on an insulin drip at 13 mL's per hour currently. Patient also continues with IV Solu-Medrol every 6 hours along with vitamin and zinc supplements and Lovenox has been adjusted to 40 mg subcutaneous daily. Will repeat basic labs along with inflammatory markers and monitor closely. 03/15/2021 Patient is seen in follow-up continues on airvo with titrating as tolerated current flow rate is 60 and FiO2 has been decreased to 70 and maintaining 87-90% oxygen saturation. Patient continues on IV steroids every 6 hours and was on insulin drip and will transition to sliding scale along with long-acting and monitor closely. Inflammatory markers trending down although d-dimer is elevated again at 4.33 and increasing Lovenox to twice daily. White blood count 16.70 and hemoglobin is 18.4. 03/16/2021 Patient is seen in follow-up maintained on Airvo with a flow rate of 60 and an FiO2 of 60 maintaining 89-94% oxygen saturation. Last night patient was having some irritation and redness and feeling of fullness in the bladder and did have indwelling Cabrera catheter which I ordered to discontinue and patient was able to fully void and felt much better with no difficulties in urinating. Patient has been urinating in the urinal no problems today. Blood sugars are variable and off the insulin drip and will continue with sliding scale and will increase long-acting and repeat a.m. labs. Constitutional: Denied any fatigue denied any fever. Cardio vascular: denied any chest pain, palpitations Gastrointestinal denied any nausea vomiting Pulmonary: As mentioned in the interval history Neurologic denied any new focal deficits All inpatient medications were reviewed and appropriate changes in these medications as dictated in the interval history and assessment and plan. Objective - Vital Signs Vital signs: Vital Signs Temp 98.8 F 03/16/21 10:00 Pulse 100 03/16/21 10:00 Resp 20 03/16/21 10:00 BP 125/86 03/16/21 10:00 Pulse Ox 94 L 03/16/21 10:00 Intake & Output 03/15/21 03/16/21 03/16/21 18:59 06:59 18:59 Intake Total 29.575 Output Total 800 1450 300 Balance -770.425 -1450 -300 Intake: Intake, IV Titration 29.575 Amount Insulin Regular 100 unit 29.575 In Sodium Chloride 0.9% 100 ml @ Titrate IV .Q0M [facility] Rx#:[id number] Output: Urine 800 1450 300 Stool 0 Other: Voiding Method Indwelling Catheter Urinal Urinal # Voids 2 # Bowel Movements 1 - Exam GENERAL: The patient is alert and oriented x3, not in any acute distress. Well developed, well nourished. HEENT: Pupils are round and equally reacting to light. EOMI. No scleral icterus. No conjunctival pallor. Normocephalic, atraumatic. No pharyngeal erythema. No thyromegaly. CARDIOVASCULAR: S1 and S2 present. No murmurs, rubs, or gallops. PULMONARY: Diminished breath sounds with scattered Bilateral rhonchi noted on exam ABDOMEN: Soft, non-tender, non-distended, normoactive bowel sounds. No palpable organomegaly. MUSCULOSKELETAL: No joint swelling or deformity. EXTREMITIES: No cyanosis, clubbing, or pedal edema. NEUROLOGICAL: Gross neurological examination did not reveal any focal deficits. SKIN: No rashes. - Labs CBC & Chem 7: 03/15/21 06:17 03/15/21 06:17 Labs: Abnormal Lab Results - Last 24 Hours (Table) 03/15/21 03/15/21 03/16/21 Range/Units 16:48 20:55 06:58 POC Glucose (mg/dL) 200 H 312 H 277 H (75-99) mg/dL Assessment and Plan Assessment: Acute hypoxic respiratory failure secondary to COVID-19 pneumonia. on Airvo 60L fio2 at 60%, saturating well is on IV Solu-Medrol, Lovenox, received Tocilizumab on 03/02/2021 Acute COVID-19 pneumonia with multifocal groundglass opacities with lower lung organizing consolidation. Hyperglycemia secondary to steroids, continue with sliding scale and long-acting and will increase long-acting and continue to monitor Accu-Cheks before meals and at bedtime Elevated D-dimer level with no evidence of PE on CTA chest, d-dimer at 4.33 and will increase Lovenox to twice daily Lactic acidosis secondary to hypoxia improved now Leukopenia Acute kidney injury with creatinine 1.42, improved current creatinine is 0.8 Elevated inflammatory markers Hypertension DVT prophylaxis Lovenox. Plan: Continue with current medications and continue to wean FiO2 as tolerated. Continue with inhalers and IV steroids at this time. Will transition to sliding scale and increase long-acting and continue to monitor Accu-Cheks before meals and at bedtime. Indwelling Cabrera catheter discontinued as patient was having some irritation and redness around the catheter site and feelings of fullness and unable to void fully. Patient is voiding with no difficulties and no discomfort status post indwelling catheter removal. Patient continues to be on Airvo with a flow rate of 60 and an FiO2 of 60% pulmonary is following.. Patient instructed to continue with prone position as tolerated.
[2021-03-16 20:45] LABS: Glucose,Whole Blood 569 mg/dL (75-99)
[2021-03-16] MEDS: ALPRAZolam 0.5 MG TAB PO PRN (20:54)
[2021-03-16] MEDS: amLODIPine 10 MG TAB PO SCH (20:55)
[2021-03-17] MEDS: methylPREDNISolone SOD SUCCI 125 MG/2 ML VIAL IV SCH ×5 (00:58→23:32)
[2021-03-17 03:54] LABS: Glucose,Whole Blood 264 mg/dL (75-99)
[2021-03-17] MEDS: SODIUM CHLORIDE 0.9% 1,000 ML IV SCH ×2 (03:58→17:06)
[2021-03-17 06:43] LABS: Basophils % (A) 0 %; Eosinophils # (A) 0.1 k/uL (0-0.7); Eosinophils % (A) 0 %; HCT 53.7 % (39.0-53.0); HGB 17.9 gm/dL (13.0-17.5); Lymphocytes # (A) 0.2 k/uL (1.0-4.8); Lymphocytes % (A) 1 %; MCH 30.8 pg (25.0-35.0); MCHC 33.3 g/dL (31.0-37.0); MCV 92.4 fL (80.0-100.0); Mean Platelet Volume 7.2; Monocytes # (A) 0.8 k/uL (0-1.0); Monocytes % (A) 5 %; Neutrophils # (A) 16.2 k/uL (1.3-7.7); Neutrophils % (A) 94 %; Platelet Count 177 k/uL (150-450); RBC 5.81 m/uL (4.30-5.90); RDW 14.1 % (11.5-15.5); WBC 17.3 k/uL (3.8-10.6)
[2021-03-17 06:52] LABS: African American GFR (CKD) >90 (>60 ml/min/1.73 sqM); Anion Gap 7 mmol/L; Blood Urea Nitrogen 34 mg/dL (9-20); Calcium 8.2 mg/dL (8.4-10.2); Carbon Dioxide 24 mmol/L (22-30); Chloride 103 mmol/L (98-107); Glucose 229 mg/dL (74-99); LDH 1381 U/L (313-618); Non-African American GFR(CKD) >90 (>60 ml/min/1.73 sqM); Potassium 4.8 mmol/L (3.5-5.1); Sodium 134 mmol/L (137-145)
[2021-03-17 06:57] LABS: Glucose,Whole Blood 246 mg/dL (75-99)
[2021-03-17] MEDS: ASCORBIC ACID 500 MG TAB PO SCH (07:10)
[2021-03-17] MEDS: ZINC SULFATE 220 MG CAP PO SCH (07:10)
[2021-03-17] MEDS: INSULIN ASPART (NovoLOG) 100 UNIT/ML VIAL SQ SCH ×4 (07:10→21:19)
[2021-03-17] MEDS: FAMOTIDINE 20 MG TAB PO SCH ×2 (07:10→21:18)
[2021-03-17] MEDS: CHOLECALCIFEROL 25 MCG (1000 IU) TABLET PO SCH (07:10)
[2021-03-17] MEDS: INSULIN DETEMIR (LEVEMIR) 100 UNIT/ML SYR SQ SCH ×2 (07:11→21:21)
[2021-03-17] MEDS: ENOXAPARIN 60 MG/0.6 ML SYRINGE SQ SCH (07:11)
[2021-03-17] MEDS: ALBUTEROL HFA INHALER INHALATION PRN ×3 (09:11→16:08)
[2021-03-17 11:47] LABS: Glucose,Whole Blood 240 mg/dL (75-99)
--- NOTE | 2021-03-17 14:37 | P.PN ---
Subjective Progress Note Date: 03/17/21 Principal diagnosis: Acute hypoxemic respiratory failure secondary to coronavirus pneumonia. On 03/13/2021 patient seen in follow-up on medical surgical floor, he is still on Airvo currently at 60 L and FiO2 of 90% in addition to partial rebreather mask and his pulse ox earlier on the full 100% nonrebreather and Airvo was 99% and for that reason the tab was removed from inside the mask and tone in 20 partial rebreather mask. He is still very short of breath with any activity and conversation, but essentially stable, has not gotten worse, his been afebrile. D-dimer is 2.7, his Lovenox will be adjusted, his d-dimer is improving and so are his inflammatory markers, his LDH is down to 633, and CRP is less than 0.4. Patient continues on IV Solu-Medrol 60 g every 6 hours, he is on multivitamins, and his current dose Lovenox is 45 mg subcu twice daily. No nausea vomiting or diarrhea, he is tolerating oral intake. Today's chest x-ray shows multifocal left lung opacities and a left-sided volume loss improved right lung multifocal reticulonodular opacities. On 03/14/2031 patient seen in follow-up on medical surgical floor, continues to require high flow oxygen, remains on Airvo at 60 L and FiO2 of 82% and partial nonrebreather mask 92-94%. He states he is feeling just fine, he is asking when he can go home. Denies any acute distress, his been repositioning self in bed, mostly from side to side. He has been afebrile, hemodynamically has been stable, no complaints of chest discomfort, his last chest x-ray from yesterday showed multifocal left lung opacities and left-sided volume loss that appear to be stable in appearance, and improved right lung multifocal reticulonodular opacities. Yesterday's d-dimer was trending down, and was down to 2.7 and his L ovenox dose was adjusted down to 40 mg once daily, his inflammatory markers were improving. He's been tolerating oral intake, no nausea vomiting or diarrhea. His blood cultures have shown no growth, has had no fever or chills, he remains on high-dose IV steroids 60 mg every 6 hours, IV fluids at 75 ML per hour. Is on multivitamins, and prophylactic dose Lovenox On 03/15/2021 patient seen in follow-up on medical surgical floor, patient continues to require high flow oxygen per Airvo at 60 L and FiO2 of 70%, and maintaining O2 saturations between 86-89%. Nonrebreather mask has been removed, hemodynamically stable, his breathing is stable, no worsening, does have exertional dyspnea, but no acute distress, has been afebrile. On planes of chest discomfort, no cough. Last chest x-ray from couple days ago showed multifocal left lung opacities and left-sided volume loss, with improved right lung multifocal reticulonodular opacities. Patient remains on high-dose IV Solu-Medrol 60 mg every 6 hours, remains on Lovenox 40 mg daily, today's d-dimer is 4.33. White blood cell count is 16.7, hemoglobin is 18.4, electrolytes within normal limits, BUN of 36 and creatinine 0.8. Inflammatory markers are improving, LDH is 550 and CRP is less than 0.4 On 03/16/2021 patient seen in follow-up on medical surgical floor. He still remains on Airvo however FiO2 is currently down to 65%, and the flow is currently at 60 L/m, his pulse ox is 90-94%, seems to be breathing comfortably, appears to be in no acute distress, he sleep right now, we did not wake him. His vital signs have been stable in the last 24 hours, his had no fever or chills, no new chest x-ray, no new labs. 0.9 is infusing at 75 ML per hour, he remains on Lovenox 45 mg twice daily, follow d-dimer will be ordered for kimberley dumont, and patient remains on Solu-Medrol at 60 mg every 6 hours. Progress note dated 03/17/2021. Currently, the patient appears to be doing better. He is lying on his left side. He remains on AIRVO, with settings of 55 L/m, and 55%. This is better than it was yesterday. His saturations are in the low 90s. Clinically he feels like he is getting better. He feels less short of breath. He seemed to be pretty upbeat. Labs today include a white count 17.3, hemoglobin 17.9, hematocrit 53.7, and platelet count of 177,000. D-dimer 0.82. Sodium 134, potassium 4.8, chlorides 103, CO2 24, anion gap is 7, BUN 34, creatinine 0.6. Pro-calcitonin level is 0.15. LDH is 1381. Objective - Vital Signs Vital signs: Vital Signs Temp 98.4 F 03/17/21 10:00 Pulse 105 H 03/17/21 10:00 Resp 20 03/17/21 10:00 BP 118/77 03/17/21 10:00 Pulse Ox 87 L 03/17/21 10:00 Intake & Output 03/16/21 03/17/21 03/17/21 18:59 06:59 18:59 Output Total 300 250 Balance -300 -250 Output: Urine 300 250 Stool 0 Other: Voiding Method Urinal Urinal Urinal # Voids 3 - Exam No acute distress, oriented 3. AIRVO cannula in place, with saturations in the low 90s. HEENT examination is grossly unremarkable. Neck supple. Full range of motion. No adenopathy thyromegaly or neck vein distention. Cardiovascular examination reveals regular rhythm rate. S1-S2 normal. No S3 or S4. No discernible murmur noted. Heart rate about 100 bpm. Heart sounds are distant. Lungs reveal few some bilateral rhonchi and crackles. Breath sounds equal bilaterally but diminished throughout. There are no wheezes. Abdomen soft bowel sounds are heard. No masses or tenderness. Extremities are intact. No cyanosis clubbing or edema. Skin is without rash or lesion. Neurologic examination is brief but nonfocal. - Labs CBC & Chem 7: 03/17/21 06:19 03/17/21 06:19 Labs: Abnormal Lab Results - Last 24 Hours (Table) 03/16/21 03/16/21 03/17/21 Range/Units 16:40 20:42 03:52 WBC (3.8-10.6) k/uL Hgb (13.0-17.5) gm/dL Hct (39.0-53.0) % Neutrophils # (1.3-7.7) k/uL Lymphocytes # (1.0-4.8) k/uL D-Dimer (<0.60) mg/L FEU Sodium (137-145) mmol/L BUN (9-20) mg/dL Creatinine (0.66-1.25) mg/dL Glucose (74-99) mg/dL POC Glucose (mg/dL) 377 H 569 H 264 H (75-99) mg/dL Calcium (8.4-10.2) mg/dL Lactate Dehydrogenase (313-618) U/L Procalcitonin (0.02-0.09) ng/mL 03/17/21 03/17/21 03/17/21 Range/Units 06:19 06:19 06:19 WBC 17.3 H (3.8-10.6) k/uL Hgb 17.9 H (13.0-17.5) gm/dL Hct 53.7 H (39.0-53.0) % Neutrophils # 16.2 H (1.3-7.7) k/uL Lymphocytes # 0.2 L (1.0-4.8) k/uL D-Dimer 0.82 H (<0.60) mg/L FEU Sodium (137-145) mmol/L BUN (9-20) mg/dL Creatinine (0.66-1.25) mg/dL Glucose (74-99) mg/dL POC Glucose (mg/dL) (75-99) mg/dL Calcium (8.4-10.2) mg/dL Lactate Dehydrogenase (313-618) U/L Procalcitonin 0.15 H (0.02-0.09) ng/mL 03/17/21 03/17/21 03/17/21 Range/Units 06:19 06:56 11:45 WBC (3.8-10.6) k/uL Hgb (13.0-17.5) gm/dL Hct (39.0-53.0) % Neutrophils # (1.3-7.7) k/uL Lymphocytes # (1.0-4.8) k/uL D-Dimer (<0.60) mg/L FEU Sodium 134 L (137-145) mmol/L BUN 34 H (9-20) mg/dL Creatinine 0.60 L (0.66-1.25) mg/dL Glucose 229 H (74-99) mg/dL POC Glucose (mg/dL) 246 H 240 H (75-99) mg/dL Calcium 8.2 L (8.4-10.2) mg/dL Lactate Dehydrogenase 1381 H (313-618) U/L Procalcitonin (0.02-0.09) ng/mL Assessment and Plan Assessment: #1. Acute COVID-19 related pneumonia with diffuse but the pulmonary infiltrates/groundglass changes. Patient started getting symptoms approximately 5 days ago and the patient was diagnosed having COVID-19 infection on 03/01/2021 and a diagnosis was established at [facility] [employer]. He is quite hypoxic and he presented with significant shortness of breath and hypoxemia the time of admission and currently is on high flow oxygen 60 L with an FiO2 of 90% and the patient is also utilizing 100% on a beta facemasks. Transferred to the intensive care unit on 03/02/2021 and received a dose of Tocilizumab on 03/02/2021. On 03/13/2021 remains on Airvo at 60 L and FiO2 of 90% in addition to partial rebreather mask. #2. Acute hypoxic respiratory failure secondary to above. #3. elevated inflammatory markers secondary to COVID-19 related infection/pneumonia, and inflammatory markers are improving. #4. COPD. #5. acute kidney injury, resolved. #6. hypertension. Plan: Plan dated 03/17/2021. The patient will have a portable chest x-ray ordered for tomorrow. Additional recommendations and suggestions are forthcoming. Prognosis is guarded. Cl inically, the patient does feel better, and his oxygen requirements have decreased. We will continue to follow make recommendations where appropriate. Labs x-rays and medications are all reviewed. Time with Patient: Less than 30
--- NOTE | 2021-03-17 15:14 | P.PN ---
Subjective Progress Note Date: 03/17/21 Acute hypoxic respiratory failure secondary to COVID-19 pneumonia. on Airvo 60L fio2 90% Acute COVID-19 pneumonia with multifocal groundglass opacities with lower lung organizing consolidation. Elevated D-dimer level with no evidence of PE on CTA chest Lactic acidosis secondary to hypoxia 55-year-old male with a known history of hypertension and previous history of smoking presents to ER due to worsening shortness of breath since Saturday. Patient states that he flew from [place] about 3 days ago and since then he has been having fever exertional dyspnea and cough and shortness of breath which has been worsening since then. Patient was seen at outpatient clinic today and was diagnosed with COVID-19. Patient was found to be hypoxic and was having exertional dyspnea and sent to ER. Pulse ox was in the 70s as reported. Patient was dyspneic on on admission and was placed on 100% nonrebreather at 15 L oxygen and FiO2 90%. Her oxygen saturations went up to 88 to 90%. On admission blood pressure was 151/88 respiratory rate 30 heart rate 129 and pulse ox 88% on 15 L oxygen via nonrebreather. Chest x-ray showed interval development of interstitial perihilar and basilar infiltrates compatible with COVID-19 pneumonia. CTA chest showed no evidence of PE. Multifocal and confluent groundglass opacities with lower lung organizing consolidation bilaterally consistent with COVID-19 infection EKG showed sinus tachycardia 03/10/2021 Patient is seen and evaluated in follow-up on the regular medical floor. He is currently resting fairly comfortably in bed. Awake and alert in no acute distr ess. He is still requiring AirVo high flow oxygen at 60 L and 90% FiO2 plus a nonrebreather mask to maintain O2 saturations in the low 90s. Currently afebrile. Hemodynamically stable. Blood cultures reveal no growth. D-dimer up to 5.12. Sodium 135. Potassium 4.7. Creatinine 0.7. Glucose 200. LDH 832. C-reactive protein less than 0.4. He remains on Decadron, Lovenox, vitamin supplements. Pulmonary on board and recommending to increase Lovenox to 45 mg subcu twice a day; Decadron switched to IV Solu-Medrol 60 mg every 6 hours; continue to titrate FiO2 as able Repeat chest x-ray tomorrow morning; CODE STATUS has been changed to DO NOT RESUSCITATE/DO NOT INTUBATE per patient and family request 03/11/2021 Patient is seen in follow-up on the regular medical floor. He is currently resting in bed laying on his left side which is his preferred positioning. He is still on airflow high flow oxygen at 60 L and 90% FiO2 plus a nonrebreather mask. Not making much progress. Chest x-ray continues to show diffuse interstitial alveolar infiltrates. Stable compared to previous. D-dimer 6.68. Blood glucose 254. He remains on Lovenox 45 mg subcu twice a day. Continued on vitamin supplements. IV Solu-Medrol. His appetite is good. Working with the incentive spirometer. 03/12/2021 Patient is seen and evaluated in follow-up on the regular medical floor. He is currently resting comfortably in bed. No worsening shortness of breath, cough or congestion. Still dyspneic with exertion and conversation. He is able to be turned down on the airflow to 60 L and 85% FiO2 was then nonrebreather mask. O2 saturations in the low 90s. He remains on bronchodilators, IV Solu-Medrol, vitamin supplements. Lovenox at 45 mg subcu twice a day. Appetite is good. Continues to work well with the incentive spirometer. We will continue with current management; titrate FiO2 as able; patient has been encouraged to use incentive spirometry; inflammatory markers and follow-up chest x-ray tomorrow morning; pulmonary on board and recommending to continue current treatment. 03/13/2021 Patient remains on aivo with FiO2 of 85% and 60 L of oxygen although saturating 99% patient is feeling better bit tachycardic. 03/14/2021 Patient is seen and evaluated and follow-up continues to be on Airvo with a flow rate of 60 and an FiO2 of 82 with 91% oxygen saturation. Patient also continues to use a partial nonrebreather intermittently. Patient states he hasn't been up out of the bed much although continues to rotate from side to side on his own. Patient is tolerating diet with no reported nausea or vomiting noted. Pulmonary is following closely. Blood sugars continue to be elevated and patient is on an insulin drip at 13 mL's per hour currently. Patient also continues with IV Solu-Medrol every 6 hours along with vitamin and zinc supplements and Lovenox has been adjusted to 40 mg subcutaneous daily. Will repeat basic labs along with inflammatory markers and monitor closely. 03/15/2021 Patient is seen in follow-up continues on airvo with titrating as tolerated current flow rate is 60 and FiO2 has been decreased to 70 and maintaining 87-90% oxygen saturation. Patient continues on IV steroids every 6 hours and was on insulin drip and will transition to sliding scale along with long-acting and monitor closely. Inflammatory markers trending down although d-dimer is elevated again at 4.33 and increasing Lovenox to twice daily. White blood count 16.70 and hemoglobin is 18.4. 03/16/2021 Patient is seen in follow-up maintained on Airvo with a flow rate of 60 and an FiO2 of 60 maintaining 89-94% oxygen saturation. Last night patient was having some irritation and redness and feeling of fullness in the bladder and did have indwelling Cabrera catheter which I ordered to discontinue and patient was able to fully void and felt much better with no difficulties in urinating. Patient has been urinating in the urinal no problems today. Blood sugars are variable and off the insulin drip and will continue with sliding scale and will increase long-acting and repeat a.m. labs. 03/17/2021 Patient is seen and evaluated in follow-up continuing to wean FiO2 as tolerated. Patient continues on Airvo with current settings of a flow rate of 55 and FiO2 of 55 maintaining low 90s oxygen saturation. Patient states his breathing is slightly improved although remains dyspneic with minimal exertion and continues to a on his side to side alternating. Continues to have elevated blood sugars and attempting to avoid an insulin drip again and will continue with long-acting and will add long-acting at night as well and continue sliding scale. Patient has been educated multiple times on his choice of foods as he continues to drink pop, eat chocolate doughnuts and candy throughout the day. pedorthist has been consulted. Continue with consistent carb diet. Will repeat a.m. chest x-ray. White blood count 17.3, sodium 134 with a potassium of 4.8 and creatinine is 0.60. LDH is 1381 and pro-calcitonin is 0.15. D-dimer has gone d own to 0.82 and will titrate Lovenox to daily. Constitutional: Denied any fatigue denied any fever. Cardio vascular: denied any chest pain, palpitations Gastrointestinal denied any nausea vomiting Pulmonary: As mentioned in the interval history Neurologic denied any new focal deficits All inpatient medications were reviewed and appropriate changes in these medications as dictated in the interval history and assessment and plan. Objective - Vital Signs Vital signs: Vital Signs Temp 97.5 F L 03/17/21 05:35 Pulse 112 H 03/17/21 05:35 Resp 18 03/17/21 05:35 BP 117/74 03/17/21 05:35 Pulse Ox 85 L 03/17/21 05:35 Intake & Output 03/16/21 03/17/21 03/17/21 18:59 06:59 18:59 Output Total 300 250 Balance -300 -250 Output: Urine 300 250 Stool 0 Other: Voiding Method Urinal Urinal # Voids 3 - Exam GENERAL: The patient is alert and oriented x3, not in any acute distress. Well developed, well nourished. HEENT: Pupils are round and equally reacting to light. EOMI. No scleral icterus. No conjunctival pallor. Normocephalic, atraumatic. No pharyngeal erythema. No thyromegaly. CARDIOVASCULAR: S1 and S2 present. No murmurs, rubs, or gallops. PULMONARY: Diminished breath sounds with scattered Bilateral rhonchi noted on exam ABDOMEN: Soft, non-tender, non-distended, normoactive bowel sounds. No palpable organomegaly. MUSCULOSKELETAL: No joint swelling or deformity. EXTREMITIES: No cyanosis, clubbing, or pedal edema. NEUROLOGICAL: Gross neurological examination did not reveal any focal deficits. SKIN: No rashes. - Labs CBC & Chem 7: 03/17/21 06:19 03/17/21 06:19 Labs: Abnormal Lab Results - Last 24 Hours (Table) 03/16/21 03/16/21 03/16/21 Range/Units 11:34 16:40 20:42 WBC (3.8-10.6) k/uL Hgb (13.0-17.5) gm/dL Hct (39.0-53.0) % Neutrophils # (1.3-7.7) k/uL Lymphocytes # (1.0-4.8) k/uL D-Dimer (<0.60) mg/L FEU Sodium (137-145) mmol/L BUN (9-20) mg/dL Creatinine (0.66-1.25) mg/dL Glucose (74-99) mg/dL POC Glucose (mg/dL) 206 H 377 H 569 H (75-99) mg/dL Calcium (8.4-10.2) mg/dL Lactate Dehydrogenase (313-618) U/L 03/17/21 03/17/21 03/17/21 Range/Units 03:52 06:19 06:19 WBC 17.3 H (3.8-10.6) k/uL Hgb 17.9 H (13.0-17.5) gm/dL Hct 53.7 H (39.0-53.0) % Neutrophils # 16.2 H (1.3-7.7) k/uL Lymphocytes # 0.2 L (1.0-4.8) k/uL D-Dimer 0.82 H (<0.60) mg/L FEU Sodium (137-145) mmol/L BUN (9-20) mg/dL Creatinine (0.66-1.25) mg/dL Glucose (74-99) mg/dL POC Glucose (mg/dL) 264 H (75-99) mg/dL Calcium (8.4-10.2) mg/dL Lactate Dehydrogenase (313-618) U/L 03/17/21 03/17/21 Range/Units 06:19 06:56 WBC (3.8-10.6) k/uL Hgb (13.0-17.5) gm/dL Hct (39.0-53.0) % Neutrophils # (1.3-7.7) k/uL Lymphocytes # (1.0-4.8) k/uL D-Dimer (<0.60) mg/L FEU Sodium 134 L (137-145) mmol/L BUN 34 H (9-20) mg/dL Creatinine 0.60 L (0.66-1.25) mg/dL Glucose 229 H (74-99) mg/dL POC Glucose (mg/dL) 246 H (75-99) mg/dL Calcium 8.2 L (8.4-10.2) mg/dL Lactate Dehydrogenase 1381 H (313-618) U/L Assessment and Plan Assessment: Acute hypoxic respiratory failure secondary to COVID-19 pneumonia. on Airvo 55L fio2 at 55%, saturating well is on IV Solu-Medrol, Lovenox, received Tocilizumab on 03/02/2021 Acute COVID-19 pneumonia with multifocal groundglass opacities with lower lung organizing consolidation. Hyperglycemia secondary to steroids, continue with sliding scale and long-acting and will increase long-acting and continue to monitor Accu-Cheks before meals and at bedtime Elevated D-dimer level with no evidence of PE on CTA chest, d-dimer at 0.82 and we'll decrease Lovenox to daily Lactic acidosis secondary to hypoxia improved now Leukopenia Acute kidney injury with creatinine 1.42, improved current creatinine is 0.6 Elevated inflammatory markers Hypertension DVT prophylaxis Lovenox. Plan: Continue with current medications and continue to wean FiO2 as tolerated. Continue with inhalers and IV steroids at this time. Will transition to sliding scale and increase long-acting and will continue with long-acting twice daily an d continue to monitor Accu-Cheks before meals and at bedtime. Patient also educated on choice of foods as he continues to snack on junk foods throughout the day. Patient continues to be on Airvo with a flow rate of 55 and an FiO2 of 55% pulmonary is following.. Patient instructed to continue with prone position as tolerated. Will repeat a.m. chest x-ray.
[2021-03-17 17:11] LABS: Glucose,Whole Blood 316 mg/dL (75-99)
[2021-03-17 20:58] LABS: Glucose,Whole Blood 335 mg/dL (75-99)
[2021-03-17] MEDS: amLODIPine 10 MG TAB PO SCH (21:19)
[2021-03-17] MEDS: ALPRAZolam 0.5 MG TAB PO PRN (21:19)
[2021-03-18] MEDS: methylPREDNISolone SOD SUCCI 125 MG/2 ML VIAL IV SCH ×4 (05:12→23:01)
[2021-03-18 07:15] LABS: Glucose,Whole Blood 201 mg/dL (75-99)
--- NOTE | 2021-03-18 07:20 | XR ---
EXAMINATION TYPE: XR chest 1V portable DATE OF EXAM: 03/18/2021 CLINICAL HISTORY: Difficulty breathing and covid pneumonia progress study. TECHNIQUE: Single AP portable upright view of the chest is obtained. COMPARISON: Chest x-ray from 5 days earlier and older studies FINDINGS: Multifocal left lung opacity redemonstrated. Left-sided volume loss with mediastinal shift again seen. Persistent right basilar reticulonodular opacity. Cardiac silhouette size stable and wit hin normal limits. Osseous structures are intact. IMPRESSION: Multifocal left lung opacities and left-sided volume loss redemonstrated thought stable. Persistent right basilar reticulonodular opacity. No significant change from most recent x-ray.
[2021-03-18] MEDS: ALBUTEROL HFA INHALER INHALATION PRN ×2 (08:05→11:51)
[2021-03-18] MEDS: INSULIN ASPART (NovoLOG) 100 UNIT/ML VIAL SQ SCH ×4 (08:22→20:39)
[2021-03-18] MEDS: ENOXAPARIN 60 MG/0.6 ML SYRINGE SQ SCH (08:23)
[2021-03-18] MEDS: CHOLECALCIFEROL 25 MCG (1000 IU) TABLET PO SCH (08:23)
[2021-03-18] MEDS: INSULIN DETEMIR (LEVEMIR) 100 UNIT/ML SYR SQ SCH ×2 (08:23→20:40)
[2021-03-18] MEDS: FAMOTIDINE 20 MG TAB PO SCH ×2 (08:23→20:39)
[2021-03-18] MEDS: ASCORBIC ACID 500 MG TAB PO SCH (08:24)
[2021-03-18] MEDS: ZINC SULFATE 220 MG CAP PO SCH (08:24)
[2021-03-18 11:31] LABS: Glucose,Whole Blood 326 mg/dL (75-99)
--- NOTE | 2021-03-18 12:53 | P.PN ---
Subjective Progress Note Date: 03/18/21 Principal diagnosis: COVID-19 pneumonia 55-year-old male patient, diagnosed having COVID-19 infection, as the patient started getting symptomatic approximately 5 days ago. He started having some fevers initially and following that he started having increased cough and shortness of breath and for that reason he came into the hospital. He was diagnosed having COVID-19 pneumonia. In the emergency department, the patient was hypoxic with pulse ox of 70% and he was short of breath. He was placed on 100% nonrebreather facemask and his pulse ox was brought up to 90%. He was hemodynamically stable. His chest x-ray showed bilateral interstitial pulmonary infiltrates most on the lower lobes although difficulties are rather diffuse. His blood work at a time of admission showed normal white cell count of 4.2 with a lymphopenia. His d-dimer is at 1.1, he had an acute kidney injury with a creatinine of 1.4 which improvement in the creatinine is down to 0.9, LDH is significantly elevated at 2539, with a CRP level of 15.4 and appropriate acetone level of 0.4. Coagulation profile is within normal limits. Blood sugar was 168. He also underwent a CT angiogram of the chest that showed no evidence of any pulmonary embolism. There was found to have emphysema and a background in addition to bilateral groundglass pulmonary infiltrates scattered throughout the lung hirsch bilaterally both in the upper and lower lobes. Some minimal areas of consolidation in the lung bases. The rest is essentially consistent with groundglass pulmonary infiltrates. No mediastinal lymphadenopathy. No pulmonary embolism. 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 He was in [place] and [place] the week prior. It, the patient's oxidation got worse and the patient was placed on high flow oxygen and currently is on 60 L of oxygen by nasal cannula with a 90% FiO2 and a nonrebreather facemask. He is currently on Decadron 6 mg by mouth on a daily basis and the patient is also on Lovenox 40 mg subcu daily. Comorbid conditions include COPD and hypertension. 69 was quite dehydrated as the patient was not taken oral intake and he was quite intravascularly depleted with an acute kidney injury. On 03/03/2021 patient seen in follow-up in the intensive care unit, he is resting in bed on his left side, he is currently on Airvo 60 L and FiO2 of 90% and 100% nonrebreather mask and his pulse ox is 90-95%. He has 0.9 normal saline at 75 ML per hour, no other drips, he status post Tocilizumab 720 mg IV infusion yesterday on 03/02/2021. He is on Decadron 6 mg twice daily, she is on prophylactic dose of Lovenox, CTA chest showed no evidence of pulmonary embolism. Today's d-dimer is 1.16, LDH is 2590, and CRP is 4.6. Clinically patient states he is breathing easier, and she doesn't desaturate as low with repositioning, he has been positioning self in bed, and self proning, tolerating activity well, no nausea vomiting or diarrhea, and today she states she's actually feeling hungry. Today's chest x-ray also bilateral multifocal and confluent opacities consistent with COVID-19 infection stable in appearance compared to days ago. On 03/06/2021 patient seen in follow-up in the intensive care unit. He remains on high flow oxygen, per Airvo at 60 L/m, and FiO2 of 90% in addition to her percent nonrebreather mask with a pulse ox between 85-87%, he is laying on his left side, he is unable to tolerate proning. His IV fluids are infusing at 75 ML per hour, his chest x-ray today shows bilateral interstitial infiltrates that are stable in appearance. Overall seems to be in no acute distress. His labs have been reviewed showing white blood cell, 7.9, hemoglobin of 17, his sodium is 135, the rest of electrolytes were within normal limits, BUN of 29 creatinine of 0.70, AST of 41, ALT of 108, alkaline phosphatase of 109. His last d-dimer from yesterday was 2.88, and patient remains on prophylactic dose of Lovenox at 40 mg once daily, he remains on IV Decadron 6 mg daily. He is on vitamins including vitamin C, vitamin D and zinc, he is on normal saline at 75 ML per hour, his appetite has been fair, as a matter fact his been ordering takeout via [employer]. His blood pressure has been stable, his been afebrile, he is in sinus mechanism. No complaints of chest discomfort no cough. On 03/09/2021 patient seen in follow-up in intensive care unit, he is currently on Airvo at 60 L and FiO2 of 90%, in addition to 100% nonrebreather mask, his pulse ox was around 86-88%, he is very short of breath even with conversation, however in no acute distress, he has been repositioning self in bed, mostly prefers to lay on the left side, his been afebrile, hemodynamically he is stable, he is in sinus mechanism, he is receiving IV fluids at 75 ML per hour, his appetite is fair, and his family has been ordering him takeout food. Today's labs have been reviewed, his white blood cell count is 10.8, hemoglobin is 16.3, his d-dimer 3.79, stable, sodium is 134, the rest of electrolytes are within normal limits, BUN is 22 creatinine 0.64. Remains on Decadron 6 mg twice daily, he remains on Lovenox 40 mg once daily. On nausea vomiting or diarrhea, no chest discomfort, no swollen or tender calves. Patient is requesting to be transferred out of intensive care unit and he would like to go home tomorrow, which we told him that he is not anywhere close to going home yet The patient is seen today Mar 10 2021 in follow-up on the regular medical floor. He is currently resting fairly comfortably in bed. Awake and alert in no acute distress. He is still requiring AirVo high flow oxygen at 60 L and 90% FiO2 plus a nonrebreather mask to maintain O2 saturations in the low 90s. Currently afebrile. Hemodynamically stable. Blood cultures reveal no growth. D-dimer up to 5.12. Sodium 135. Potassium 4.7. Creatinine 0.7. Glucose 200. LDH 832. C-reactive protein less than 0.4. He remains on Decadron, Lovenox, vitamin supplements. The patient is seen today 03/11/2021 in follow-up on the regular medical floor. He is currently resting in bed laying on his left side which is his preferred positioning. He is still on airflow high flow oxygen at 60 L and 90% FiO2 plus a nonrebreather mask. Not making much progress. Chest x-ray continues to show diffuse interstitial alveolar infiltrates. Stable compared to previous. D- dimer 6.68. Blood glucose 254. He remains on Lovenox 45 mg subcu twice a day. Continued on vitamin supplements. IV Solu-Medrol. His appetite is good. Working with the incentive spirometer. The patient is seen today 03/12/2021 in follow-up on the regular medical floor. He is currently resting comfortably in bed. No worsening shortness of breath, cough or congestion. Still dyspneic with exertion and conversation. He is able to be turned down on the airflow to 60 L and 85% FiO2 was then nonrebreather mask. O2 saturations in the low 90s. He remains on bronchodilators, IV Solu- Medrol, vitamin supplements. Lovenox at 45 mg subcu twice a day. Appetite is good. Continues to work well with the incentive spirometer. He has been slow to progress. The patient is seen today 03/18/2021 in follow-up on the regular medical floor. He is currently laying on his left side. Awake and alert in no acute distress. Remains on airflow high flow oxygen at 15 L and 50% FiO2 with O2 saturations 87- 90%. Chest x-ray continues to show multifocal left lung opacities and left- sided volume loss redemonstrated those stable. Persistent right basilar reticulonodular opacity. No significant change from previous. Blood glucose 326. Pro-calcitonin 0.15. He remains on IV Solu-Medrol, Lovenox, vitamin supplements. His Lovenox was decreased yesterday to daily dosing. His INR came back down to 0.82. Objective - Vital Signs Vital signs: Vital Signs Temp 97.9 F 03/18/21 10:00 Pulse 110 H 03/18/21 10:00 Resp 20 03/18/21 10:00 BP 113/66 03/18/21 10:00 Pulse Ox 87 L 03/18/21 11:51 Intake & Output 03/17/21 03/18/21 03/18/21 18:59 06:59 18:59 Intake Total 200 Output Total 900 0 Balance -900 200 Intake: Oral 200 Output: Urine 900 Stool 0 Other: Voiding Method Urinal Urinal Urinal # Voids 2 - Exam GENERAL EXAM: Alert, pleasant 55-year-old gentleman, on AirVo high flow oxygen at 50 L and 50% FiO2, fairly comfortable in no apparent distress. HEAD: Normocephalic. EYES: Normal reaction of pupils, equal size. NOSE: Clear with pink turbinates. THROAT: No erythema or exudates. NECK: No masses, no JVD. CHEST: No chest wall deformity. LUNGS: Equal air entry with coarse crackles in the bilateral posterior bases. CVS: S1 and S2 normal with no audible murmur, regular rhythm. ABDOMEN: No hepatosplenomegaly, normal bowel sounds, no guarding or rigidity. SPINE: No scoliosis or deformity SKIN: No rashes CENTRAL NERVOUS SYSTEM: No focal deficits, tone is normal in all 4 extremities. EXTREMITIES: There is no peripheral edema. No clubbing, no cyanosis. Peripheral pulses are intact. - Labs CBC & Chem 7: 03/17/21 06:19 03/17/21 06:19 Labs: Abnormal Lab Results - Last 24 Hours (Table) 03/17/21 03/17/21 03/18/21 Range/Units 17:10 20:55 07:04 POC Glucose (mg/dL) 316 H 335 H 201 H (75-99) mg/dL 03/18/21 Range/Units 11:21 POC Glucose (mg/dL) 326 H (75-99) mg/dL Assessment and Plan Assessment: 1 Acute COVID-19 related pneumonia with diffuse bilateral pulmonary infiltrates/groundglass changes. Patient started getting symptoms approximately 5 days prior to and was diagnosed having COVID-19 infection on 03/01/2021 and a diagnosis was established at [facility]. He remains hypoxic and currently is on AirVo high flow oxygen 50 L with an FiO2 of 50%. Received Tocilizumab on 03/02/2021. 2 Acute hypoxic respiratory failure secondary to above 3 Elevated inflammatory markers secondary to COVID-19 related infection/ pneumonia 4 COPD 5 Acute kidney injury, recovered, creatinine 0.6 6 Hypertension Plan: The patient was seen and evaluated by Dr. Harvey Continue the current treatment plan Titrate the FiO2 as tolerated Increase the incentive spirometry use and encourage cough and deep breathing We will continue to follow I, the cosigning physician, performed a history & physical examination of the patient. Lungs sounds are coarse crackles in the bilateral bases. Maintaining good O2 saturations in the 90s on AirVo 50 L and 50% FiO2. I discussed the assessment and plan of care with my nurse practitioner, Ann Gomes. I attest to the above note as dictated by her.
--- NOTE | 2021-03-18 16:35 | P.PN ---
Subjective Progress Note Date: 03/18/21 Acute hypoxic respiratory failure secondary to COVID-19 pneumonia. on Airvo 60L fio2 90% Acute COVID-19 pneumonia with multifocal groundglass opacities with lower lung organizing consolidation. Elevated D-dimer level with no evidence of PE on CTA chest Lactic acidosis secondary to hypoxia 55-year-old male with a known history of hypertension and previous history of smoking presents to ER due to worsening shortness of breath since Saturday. Patient states that he flew from [place] about 3 days ago and since then he has been having fever exertional dyspnea and cough and shortness of breath which has been worsening since then. Patient was seen at outpatient clinic today and was diagnosed with COVID-19. Patient was found to be hypoxic and was having exertional dyspnea and sent to ER. Pulse ox was in the 70s as reported. Patient was dyspneic on on admission and was placed on 100% nonrebreather at 15 L oxygen and FiO2 90%. Her oxygen saturations went up to 88 to 90%. On admission blood pressure was 151/88 respiratory rate 30 heart rate 129 and pulse ox 88% on 15 L oxygen via nonrebreather. Chest x-ray showed interval development of interstitial perihilar and basilar infiltrates compatible with COVID-19 pneumonia. CTA chest showed no evidence of PE. Multifocal and confluent groundglass opacities with lower lung organizing consolidation bilaterally consistent with COVID-19 infection EKG showed sinus tachycardia 03/10/2021 Patient is seen and evaluated in follow-up on the regular medical floor. He is currently resting fairly comfortably in bed. Awake and alert in no acute distr ess. He is still requiring AirVo high flow oxygen at 60 L and 90% FiO2 plus a nonrebreather mask to maintain O2 saturations in the low 90s. Currently afebrile. Hemodynamically stable. Blood cultures reveal no growth. D-dimer up to 5.12. Sodium 135. Potassium 4.7. Creatinine 0.7. Glucose 200. LDH 832. C-reactive protein less than 0.4. He remains on Decadron, Lovenox, vitamin supplements. Pulmonary on board and recommending to increase Lovenox to 45 mg subcu twice a day; Decadron switched to IV Solu-Medrol 60 mg every 6 hours; continue to titrate FiO2 as able Repeat chest x-ray tomorrow morning; CODE STATUS has been changed to DO NOT RESUSCITATE/DO NOT INTUBATE per patient and family request 03/11/2021 Patient is seen in follow-up on the regular medical floor. He is currently resting in bed laying on his left side which is his preferred positioning. He is still on airflow high flow oxygen at 60 L and 90% FiO2 plus a nonrebreather mask. Not making much progress. Chest x-ray continues to show diffuse interstitial alveolar infiltrates. Stable compared to previous. D-dimer 6.68. Blood glucose 254. He remains on Lovenox 45 mg subcu twice a day. Continued on vitamin supplements. IV Solu-Medrol. His appetite is good. Working with the incentive spirometer. 03/12/2021 Patient is seen and evaluated in follow-up on the regular medical floor. He is currently resting comfortably in bed. No worsening shortness of breath, cough or congestion. Still dyspneic with exertion and conversation. He is able to be turned down on the airflow to 60 L and 85% FiO2 was then nonrebreather mask. O2 saturations in the low 90s. He remains on bronchodilators, IV Solu-Medrol, vitamin supplements. Lovenox at 45 mg subcu twice a day. Appetite is good. Continues to work well with the incentive spirometer. We will continue with current management; titrate FiO2 as able; patient has been encouraged to use incentive spirometry; inflammatory markers and follow-up chest x-ray tomorrow morning; pulmonary on board and recommending to continue current treatment. 03/13/2021 Patient remains on aivo with FiO2 of 85% and 60 L of oxygen although saturating 99% patient is feeling better bit tachycardic. 03/14/2021 Patient is seen and evaluated and follow-up continues to be on Airvo with a flow rate of 60 and an FiO2 of 82 with 91% oxygen saturation. Patient also continues to use a partial nonrebreather intermittently. Patient states he hasn't been up out of the bed much although continues to rotate from side to side on his own. Patient is tolerating diet with no reported nausea or vomiting noted. Pulmonary is following closely. Blood sugars continue to be elevated and patient is on an insulin drip at 13 mL's per hour currently. Patient also continues with IV Solu-Medrol every 6 hours along with vitamin and zinc supplements and Lovenox has been adjusted to 40 mg subcutaneous daily. Will repeat basic labs along with inflammatory markers and monitor closely. 03/15/2021 Patient is seen in follow-up continues on airvo with titrating as tolerated current flow rate is 60 and FiO2 has been decreased to 70 and maintaining 87-90% oxygen saturation. Patient continues on IV steroids every 6 hours and was on insulin drip and will transition to sliding scale along with long-acting and monitor closely. Inflammatory markers trending down although d-dimer is elevated again at 4.33 and increasing Lovenox to twice daily. White blood count 16.70 and hemoglobin is 18.4. 03/16/2021 Patient is seen in follow-up maintained on Airvo with a flow rate of 60 and an FiO2 of 60 maintaining 89-94% oxygen saturation. Last night patient was having some irritation and redness and feeling of fullness in the bladder and did have indwelling Cabrera catheter which I ordered to discontinue and patient was able to fully void and felt much better with no difficulties in urinating. Patient has been urinating in the urinal no problems today. Blood sugars are variable and off the insulin drip and will continue with sliding scale and will increase long-acting and repeat a.m. labs. 03/17/2021 Patient is seen and evaluated in follow-up continuing to wean FiO2 as tolerated. Patient continues on Airvo with current settings of a flow rate of 55 and FiO2 of 55 maintaining low 90s oxygen saturation. Patient states his breathing is slightly improved although remains dyspneic with minimal exertion and continues to a on his side to side alternating. Continues to have elevated blood sugars and attempting to avoid an insulin drip again and will continue with long-acting and will add long-acting at night as well and continue sliding scale. Patient has been educated multiple times on his choice of foods as he continues to drink pop, eat chocolate doughnuts and candy throughout the day. art educator has been consulted. Continue with consistent carb diet. Will repeat a.m. chest x-ray. White blood count 17.3, sodium 134 with a potassium of 4.8 and creatinine is 0.60. LDH is 1381 and pro-calcitonin is 0.15. D-dimer has gone d own to 0.82 and will titrate Lovenox to daily. 03/18/2021 Patient seen on follow-up, on Airvo 50 L a minute, marginal O2 saturations, no fever. Does get somewhat short of breath when speaking. Chest x-ray showing multifocal opacities left-sided volume loss, stable from previous. He is continued on IV Solu-Medrol 60 every 6 hours, hyperglycemic blood glucose 326. Constitutional: Denied any fatigue denied any fever. Cardio vascular: denied any chest pain, palpitations Gastrointestinal denied any nausea vomiting Pulmonary: As mentioned in the interval history Neurologic denied any new focal deficits All inpatient medications were reviewed and appropriate changes in these medications as dictated in the interval history and assessment and plan. Objective - Vital Signs Vital signs: Vital Signs Temp 97.8 F 03/18/21 15:28 Pulse 116 H 03/18/21 15:28 Resp 22 03/18/21 15:28 BP 116/77 03/18/21 15:28 Pulse Ox 85 L 03/18/21 15:28 Intake & Output 03/17/21 03/18/21 03/18/21 18:59 06:59 18:59 Intake Total 200 Output Total 900 0 Balance -900 200 Intake: Oral 200 Output: Urine 900 Stool 0 Other: Voiding Method Urinal Urinal Urinal # Voids 2 2 # Bowel Movements 1 - Exam GENERAL: The patient is alert and oriented x3, not in any acute distress. Well developed, well nourished. HEENT: Pupils are round and equally reacting to light. EOMI. No scleral icterus. No conjunctival pallor. Normocephalic, atraumatic. No pharyngeal erythema. No thyromegaly. CARDIOVASCULAR: S1 and S2 present. No murmurs, rubs, or gallops. PULMONARY: Diminished breath sounds with scattered Bilateral rhonchi noted on exam ABDOMEN: Soft, non-tender, non-distended, normoactive bowel sounds. No palpable organomegaly. MUSCULOSKELETAL: No joint swelling or deformity. EXTREMITIES: No cyanosis, clubbing, or pedal edema. NEUROLOGICAL: Gross neurological examination did not reveal any focal deficits. SKIN: No rashes. - Labs CBC & Chem 7: 03/17/21 06:19 03/17/21 06:19 Labs: Abnormal Lab Results - Last 24 Hours (Table) 03/17/21 03/17/21 03/18/21 Range/Units 17:10 20:55 07:04 POC Glucose (mg/dL) 316 H 335 H 201 H (75-99) mg/dL 03/18/21 Range/Units 11:21 POC Glucose (mg/dL) 326 H (75-99) mg/dL Assessment and Plan Assessment: Acute hypoxic respiratory failure secondary to COVID-19 pneumonia. on Airvo 55L fio2 at 50%, saturating well is on IV Solu-Medrol, Lovenox, received Tocilizumab on 03/02/2021 Acute COVID-19 pneumonia with multifocal groundglass opacities with lower lung organizing consolidation. Hyperglycemia secondary to steroids, continue with sliding scale and long-acting and will increase long-acting and continue to monitor Accu-Cheks before meals and at bedtime Elevated D-dimer level with no evidence of PE on CTA chest, d-dimer at 0.82 and we'll decrease Lovenox to daily Lactic acidosis secondary to hypoxia improved now Leukopenia Acute kidney injury with creatinine 1.42, improved current creatinine is 0.6 Elevated inflammatory markers Hypertension DVT prophylaxis Lovenox. Plan: Continue with current medications and continue to wean FiO2 as tolerated. C ontinue with inhalers and IV steroids at this time. Continue on sliding scale coverage and continues on Levemir, we will increase evening dose to 32 units. Accu-Cheks before meals and at bedtime. Patient also educated on choice of foods as he continues to snack on junk foods throughout the day. Patient continues to be on Airvo with a flow rate of 55 and an FiO2 of 55%, O2 saturations are marginal pulmonary is following.. Patient instructed to continue with prone position as tolerated. Chest x-ray stable
[2021-03-18 17:14] LABS: Glucose,Whole Blood 278 mg/dL (75-99)
[2021-03-18 20:27] LABS: Glucose,Whole Blood 362 mg/dL (75-99)
[2021-03-18] MEDS: ALPRAZolam 0.5 MG TAB PO PRN (20:39)
[2021-03-18] MEDS: amLODIPine 10 MG TAB PO SCH (20:39)
[2021-03-18] MEDS: SODIUM CHLORIDE 0.9% 1,000 ML IV SCH (20:40)
[2021-03-19] MEDS: methylPREDNISolone SOD SUCCI 125 MG/2 ML VIAL IV SCH ×2 (05:26→11:55)
[2021-03-19 07:11] LABS: Glucose,Whole Blood 215 mg/dL (75-99)
[2021-03-19] MEDS: ALBUTEROL HFA INHALER INHALATION PRN ×3 (07:49→20:57)
[2021-03-19] MEDS: CHOLECALCIFEROL 25 MCG (1000 IU) TABLET PO SCH (08:07)
[2021-03-19] MEDS: INSULIN DETEMIR (LEVEMIR) 100 UNIT/ML SYR SQ SCH ×2 (08:08→20:07)
[2021-03-19] MEDS: ZINC SULFATE 220 MG CAP PO SCH (08:08)
[2021-03-19] MEDS: ASCORBIC ACID 500 MG TAB PO SCH (08:08)
[2021-03-19] MEDS: FAMOTIDINE 20 MG TAB PO SCH ×2 (08:08→20:06)
[2021-03-19] MEDS: ENOXAPARIN 60 MG/0.6 ML SYRINGE SQ SCH (08:09)
[2021-03-19] MEDS: INSULIN ASPART (NovoLOG) 100 UNIT/ML VIAL SQ SCH ×4 (08:09→20:06)
[2021-03-19 11:38] LABS: Glucose,Whole Blood 274 mg/dL (75-99)
--- NOTE | 2021-03-19 13:40 | P.PN ---
Subjective Progress Note Date: 03/19/21 Principal diagnosis: Acute hypoxemic respiratory failure secondary to coronavirus pneumonia. On 03/13/2021 patient seen in follow-up on medical surgical floor, he is still on Airvo currently at 60 L and FiO2 of 90% in addition to partial rebreather mask and his pulse ox earlier on the full 100% nonrebreather and Airvo was 99% and for that reason the tab was removed from inside the mask and tone in 20 partial rebreather mask. He is still very short of breath with any activity and conversation, but essentially stable, has not gotten worse, his been afebrile. D-dimer is 2.7, his Lovenox will be adjusted, his d-dimer is improving and so are his inflammatory markers, his LDH is down to 633, and CRP is less than 0.4. Patient continues on IV Solu-Medrol 60 g every 6 hours, he is on multivitamins, and his current dose Lovenox is 45 mg subcu twice daily. No nausea vomiting or diarrhea, he is tolerating oral intake. Today's chest x-ray shows multifocal left lung opacities and a left-sided volume loss improved right lung multifocal reticulonodular opacities. On 03/14/2031 patient seen in follow-up on medical surgical floor, continues to require high flow oxygen, remains on Airvo at 60 L and FiO2 of 82% and partial nonrebreather mask 92-94%. He states he is feeling just fine, he is asking when he can go home. Denies any acute distress, his been repositioning self in bed, mostly from side to side. He has been afebrile, hemodynamically has been stable, no complaints of chest discomfort, his last chest x-ray from yesterday showed multifocal left lung opacities and left-sided volume loss that appear to be stable in appearance, and improved right lung multifocal reticulonodular opacities. Yesterday's d-dimer was trending down, and was down to 2.7 and his L ovenox dose was adjusted down to 40 mg once daily, his inflammatory markers were improving. He's been tolerating oral intake, no nausea vomiting or diarrhea. His blood cultures have shown no growth, has had no fever or chills, he remains on high-dose IV steroids 60 mg every 6 hours, IV fluids at 75 ML per hour. Is on multivitamins, and prophylactic dose Lovenox On 03/15/2021 patient seen in follow-up on medical surgical floor, patient continues to require high flow oxygen per Airvo at 60 L and FiO2 of 70%, and maintaining O2 saturations between 86-89%. Nonrebreather mask has been removed, hemodynamically stable, his breathing is stable, no worsening, does have exertional dyspnea, but no acute distress, has been afebrile. On planes of chest discomfort, no cough. Last chest x-ray from couple days ago showed multifocal left lung opacities and left-sided volume loss, with improved right lung multifocal reticulonodular opacities. Patient remains on high-dose IV Solu-Medrol 60 mg every 6 hours, remains on Lovenox 40 mg daily, today's d-dimer is 4.33. White blood cell count is 16.7, hemoglobin is 18.4, electrolytes within normal limits, BUN of 36 and creatinine 0.8. Inflammatory markers are improving, LDH is 550 and CRP is less than 0.4 On 03/16/2021 patient seen in follow-up on medical surgical floor. He still remains on Airvo however FiO2 is currently down to 65%, and the flow is currently at 60 L/m, his pulse ox is 90-94%, seems to be breathing comfortably, appears to be in no acute distress, he sleep right now, we did not wake him. His vital signs have been stable in the last 24 hours, his had no fever or chills, no new chest x-ray, no new labs. 0.9 is infusing at 75 ML per hour, he remains on Lovenox 45 mg twice daily, follow d-dimer will be ordered for kimberley dumont, and patient remains on Solu-Medrol at 60 mg every 6 hours. Progress note dated 03/17/2021. Currently, the patient appears to be doing better. He is lying on his left side. He remains on AIRVO, with settings of 55 L/m, and 55%. This is better than it was yesterday. His saturations are in the low 90s. Clinically he feels like he is getting better. He feels less short of breath. He seemed to be pretty upbeat. Labs today include a white count 17.3, hemoglobin 17.9, hematocrit 53.7, and platelet count of 177,000. D-dimer 0.82. Sodium 134, potassium 4.8, chlorides 103, CO2 24, anion gap is 7, BUN 34, creatinine 0.6. Pro-calcitonin level is 0.15. LDH is 1381. Progress note dated 03/19/2021. Currently, the patient does feel better. He is again seen in room 479. The patient remains on AIRVO. He is at 50 L/m and 45%. Clinically, the patient looks better. He actually states that he feels better. He denies any chest pain or chest discomfort. No fever or chills. No new lab data to report. Chest x-ray from March 18 was reviewed already. Objective - Vital Signs Vital signs: Vital Signs Temp 96.5 F L 03/19/21 10:00 Pulse 111 H 03/19/21 10:00 Resp 20 03/19/21 10:00 BP 124/79 03/19/21 10:00 Pulse Ox 86 L 03/19/21 10:00 Intake & Output 03/18/21 03/19/21 03/19/21 18:59 06:59 18:59 Intake Total 200 Output Total 1500 750 0 Balance -1300 -750 0 Intake: Oral 200 Output: Urine 1500 750 Stool 0 0 Other: Voiding Method Urinal Urinal Urinal # Voids 2 1 # Bowel Movements 1 - Exam No acute distress, oriented 3. AIRVO cannula in place, with saturations in the low 90s. HEENT examination is grossly unremarkable. Neck supple. Full range of motion. No adenopathy thyromegaly or neck vein distention. Cardiovascular examination reveals regular rhythm rate. S1-S2 normal. No S3 or S4. No discernible murmur noted. Heart rate about 105 bpm. Heart sounds are distant. Lungs reveal few some bilateral rhonchi and crackles. Breath sounds equal bilaterally but diminished throughout. There are no wheezes. Abdomen soft bowel sounds are heard. No masses or tenderness. Extremities are intact. No cyanosis clubbing or edema. Skin is without rash or lesion. Neurologic examination is brief but nonfocal. - Labs CBC & Chem 7: 03/17/21 06:19 03/17/21 06:19 Labs: Abnormal Lab Results - Last 24 Hours (Table) 03/18/21 03/18/21 03/19/21 Range/Units 17:10 20:25 07:10 POC Glucose (mg/dL) 278 H 362 H 215 H (75-99) mg/dL 03/19/21 Range/Units 11:36 POC Glucose (mg/dL) 274 H (75-99) mg/dL Assessment and Plan Assessment: #1. Acute COVID-19 related pneumonia with diffuse but the pulmonary infiltrat es/groundglass changes. Patient started getting symptoms approximately 5 days ago and the patient was diagnosed having COVID-19 infection on 03/01/2021 and a diagnosis was established at [facility]. He is quite hypoxic and he presented with significant shortness of breath and hypoxemia the time of admission and currently is on high flow oxygen 60 L with an FiO2 of 90% and the patient is also utilizing 100% on a beta facemasks. Transferred to the intensive care unit on 03/02/2021 and received a dose of Tocilizumab on 03/02/2021. On 03/19/2021 remains on AIRVO at 50 L/m and FiO2 of 46%. #2. Acute hypoxic respiratory failure secondary to above. #3. elevated inflammatory markers secondary to COVID-19 related infection/pneumonia, and inflammatory markers are improving. #4. COPD. #5. acute kidney injury, resolved. #6. hypertension. Plan: Plan dated 03/17/2021. The patient will have a portable chest x-ray ordered for tomorrow. Additional recommendations and suggestions are forthcoming. Prognosis is guarded. Clinically, the patient does feel better, and his oxygen requirements have decreased. We will continue to follow make recommendations where appropriate. Labs x-rays and medications are all reviewed. Plan dated 03/19/2021. The patient appears to be clinically better. He is responding to therapy slowly. His been weaned down on AIRVO to 15 L/m and FiO2 of 46%. He's been steadily being titrated. The patient has no major complaints today. Additional recommendations and suggestions are forthcoming. Prognosis is guarded. Chest x-ray from March 18 is reviewed. No additional recommendations are made at this time. Prognosis is still thought to be guarded. Time with Patient: Less than 30
--- NOTE | 2021-03-19 15:25 | P.PN ---
Subjective Acute hypoxic respiratory failure secondary to COVID-19 pneumonia. on Airvo 60L fio2 90% Acute COVID-19 pneumonia with multifocal groundglass opacities with lower lung organizing consolidation. Elevated D-dimer level with no evidence of PE on CTA chest Lactic acidosis secondary to hypoxia 55-year-old male with a known history of hypertension and previous history of smoking presents to ER due to worsening shortness of breath since Saturday. Irasema taylor states that he flew from [place] about 3 days ago and since then he has been having fever exertional dyspnea and cough and shortness of breath which has been worsening since then. Patient was seen at outpatient clinic today and was diagnosed with COVID-19. Patient was found to be hypoxic and was having exertional dyspnea and sent to ER. Pulse ox was in the 70s as reported. Patient was dyspneic on on admission and was placed on 100% nonrebreather at 15 L oxygen and FiO2 90%. Her oxygen saturations went up to 88 to 90%. On admission blood pressure was 151/88 respiratory rate 30 heart rate 129 and pulse ox 88% on 15 L oxygen via nonrebreather. Chest x-ray showed interval development of interstitial perihilar and basilar infiltrates compatible with COVID-19 pneumonia. CTA chest showed no evidence of PE. Multifocal and confluent groundglass opacities with lower lung organizing consolidation bilaterally consistent with COVID-19 infection EKG showed sinus tachycardia 03/10/2021 Patient is seen and evaluated in follow-up on the regular medical floor. He is currently resting fairly comfortably in bed. Awake and alert in no acute distress. He is still requiring AirVo high flow oxygen at 60 L and 90% FiO2 plus a nonrebreather mask to maintain O2 saturations in the low 90s. Currently afebrile. Hemodynamically stable. Blood cultures reveal no growth. D-dimer up to 5.12. Sodium 135. Potassium 4.7. Creatinine 0.7. Glucose 200. LDH 832. C-reactive protein less than 0.4. He remains on Decadron, Lovenox, vitamin supplements. Pulmonary on board and recommending to increase Lovenox to 45 mg subcu twice a day; Decadron switched to IV Solu-Medrol 60 mg every 6 hours; continue to titrate FiO2 as able Repeat chest x-ray tomorrow morning; CODE STATUS has been changed to DO NOT RESUSCITATE/DO NOT INTUBATE per patient and family request 03/11/2021 Patient is seen in follow-up on the regular medical floor. He is currently resting in bed laying on his left side which is his preferred positioning. He is still on airflow high flow oxygen at 60 L and 90% FiO2 plus a nonrebreather mask. Not making much progress. Chest x-ray continues to show diffuse interstitial alveolar infiltrates. Stable compared to previous. D-dimer 6.68. Blood glucose 254. He remains on Lovenox 45 mg subcu twice a day. Continued on vitamin supplements. IV Solu-Medrol. His appetite is good. Working with the incentive spirometer. 03/12/2021 Patient is seen and evaluated in follow-up on the regular medical floor. He is currently resting comfortably in bed. No worsening shortness of breath, cough or congestion. Still dyspneic with exertion and conversation. He is able to be turned down on the airflow to 60 L and 85% FiO2 was then nonrebreather mask. O2 saturations in the low 90s. He remains on bronchodilators, IV Solu-Medrol, vitamin supplements. Lovenox at 45 mg subcu twice a day. Appetite is good. Continues to work well with the incentive spirometer. We will continue with current management; titrate FiO2 as able; patient has been encouraged to use incentive spirometry; inflammatory markers and follow-up chest x-ray tomorrow morning; pulmonary on board and recommending to continue current treatment. 03/13/2021 Patient remains on aivo with FiO2 of 85% and 60 L of oxygen although saturating 99% patient is feeling better bit tachycardic. 03/14/2021 Patient is seen and evaluated and follow-up continues to be on Airvo with a flow rate of 60 and an FiO2 of 82 with 91% oxygen saturation. Patient also continues to use a partial nonrebreather intermittently. Patient states he hasn't been up out of the bed much although continues to rotate from side to side on his own. Patient is tolerating diet with no reported nausea or vomiting noted. Pulmonary is following closely. Blood sugars continue to be elevated and patient is on an insulin drip at 13 mL's per hour currently. Patient also continues with IV Solu-Medrol every 6 hours along with vitamin and zinc supplements and Lovenox has been adjusted to 40 mg subcutaneous daily. Will repeat basic labs along with inflammatory markers and monitor closely. 03/15/2021 Patient is seen in follow-up continues on airvo with titrating as tolerated current flow rate is 60 and FiO2 has been decreased to 70 and maintaining 87-90% oxygen saturation. Patient continues on IV steroids every 6 hours and was on insulin drip and will transition to sliding scale along with long-acting and monitor closely. Inflammatory markers trending down although d-dimer is elevated again at 4.33 and increasing Lovenox to twice daily. White blood count 16.70 and hemoglobin is 18.4. 03/16/2021 Patient is seen in follow-up maintained on Airvo with a flow rate of 60 and an FiO2 of 60 maintaining 89-94% oxygen saturation. Last night patient was having some irritation and redness and feeling of fullness in the bladder and did have indwelling Cabrera catheter which I ordered to discontinue and patient was able to fully void and felt much better with no difficulties in urinating. Patient has been urinating in the urinal no problems today. Blood sugars are variable and off the insulin drip and will continue with sliding scale and will increase long-acting and repeat a.m. labs. 03/17/2021 Patient is seen and evaluated in follow-up continuing to wean FiO2 as tolerated. Patient continues on Airvo with current settings of a flow rate of 55 and FiO2 of 55 maintaining low 90s oxygen saturation. Patient states his breathing is slightly improved although remains dyspneic with minimal exertion and continues to a on his side to side alternating. Continues to have elevated blood sugars and attempting to avoid an insulin drip again and will continue with long-acting and will add long-acting at night as well and continue sliding scale. Patient has been educated multiple times on his choice of foods as he continues to drink pop, eat chocolate doughnuts and candy throughout the day. personal development educator has been consulted. Continue with consistent carb diet. Will repeat a.m. chest x-ray. White blood count 17.3, sodium 134 with a potassium of 4.8 and creatinine is 0.60. LDH is 1381 and pro-calcitonin is 0.15. D-dimer has gone down to 0.82 and will titrate Lovenox to daily. 03/18/2021 Patient seen on follow-up, on Airvo 50 L a minute, marginal O2 saturations, no fever. Does get somewhat short of breath when speaking. Chest x-ray showing multifocal opacities left-sided volume loss, stable from previous. He is continued on IV Solu-Medrol 60 every 6 hours, hyperglycemic blood glucose 326. 03/19/2021 Patient seen on reevaluation, on [place] O 40 L a minute, O2 saturations are marginal. Increased respiratory rate, tachycardic, blood pressure is stable, patient is quite anxious to go home despite his high oxygen requirements, explained that his oxygen requirements would have to come down significantly until he can be discharged. His continued on IV Solu-Medrol 40 twice daily, Colin sánchez, had difficulty sleeping last night was started on Restoril. Blood sugars are running in the 200s, we will hold off on adjusting insulin as steroids have been cut down. Constitutional: Denied any fatigue denied any fever. Cardio vascular: denied any chest pain, palpitations Gastrointestinal denied any nausea vomiting Pulmonary: As mentioned in the interval history Neurologic denied any new focal deficits All inpatient medications were reviewed and appropriate changes in these medications as dictated in the interval history and assessment and plan. Objective - Vital Signs Vital signs: Vital Signs Temp 96.5 F L 03/19/21 10:00 Pulse 111 H 03/19/21 10:00 Resp 20 03/19/21 10:00 BP 124/79 03/19/21 10:00 Pulse Ox 86 L 03/19/21 10:00 Intake & Output 03/18/21 03/19/21 03/19/21 18:59 06:59 18:59 Intake Total 200 Output Total 1500 750 0 Balance -1300 -750 0 Intake: Oral 200 Output: Urine 1500 750 Stool 0 0 Other: Voiding Method Urinal Urinal Urinal # Voids 2 1 # Bowel Movements 1 - Exam GENERAL: The patient is alert and oriented x3, not in any acute distress. Well developed, well nourished. HEENT: Pupils are round and equally reacting to light. EOMI. No scleral icterus. No conjunctival pallor. Normocephalic, atraumatic. No pharyngeal erythema. No thyromegaly. CARDIOVASCULAR: S1 and S2 present. No murmurs, rubs, or gallops. PULMONARY: Diminished breath sounds with scattered Bilateral rhonchi noted on exam ABDOMEN: Soft, non-tender, non-distended, normoactive bowel sounds. No palpable organomegaly. MUSCULOSKELETAL: No joint swelling or deformity. EXTREMITIES: No cyanosis, clubbing, or pedal edema. NEUROLOGICAL: Gross neurological examination did not reveal any focal deficits. SKIN: No rashes. - Labs CBC & Chem 7: 03/17/21 06:19 03/17/21 06:19 Labs: Abnormal Lab Results - Last 24 Hours (Table) 03/18/21 03/18/21 03/19/21 Range/Units 17:10 20:25 07:10 POC Glucose (mg/dL) 278 H 362 H 215 H (75-99) mg/dL 03/19/21 Range/Units 11:36 POC Glucose (mg/dL) 274 H (75-99) mg/dL Assessment and Plan Assessment: Acute hypoxic respiratory failure secondary to COVID-19 pneumonia. on Airvo 55L fio2 at 50%, saturating well is on IV Solu-Medrol, Lovenox, received Tocilizumab on 03/02/2021 Acute COVID-19 pneumonia with multifocal groundglass opacities with lower lung organizing consolidation. Hyperglycemia secondary to steroids, continue with sliding scale and long-acting and will increase long-acting and continue to monitor Accu-Cheks before meals and at bedtime Elevated D-dimer level with no evidence of PE on CTA chest, d-dimer at 0.82 and we'll decrease Lovenox to daily Lactic acidosis secondary to hypoxia improved now Leukopenia Acute kidney injury with creatinine 1.42, improved current creatinine is 0.6 Elevated inflammatory markers Hypertension DVT prophylaxis Lovenox. Plan: Continue with current medications and continue to wean FiO2 as tolerated. Continue with, IV Solu-Medrol cut down to 40 twice daily. Continues on Levemir 40 units daily, 25 units at night, blood sugars running in the 200s to hold off on adjusting insulin steroids of been cut down Was started on Restoril due to difficulty sleeping, possible steroid-related effect as well. Patient is on Arvo 40 L a minute marginal O2 saturations. Patient is anxious to be discharged home, was explained that of oxygen requirements have come down significantly prior to discharge.
[2021-03-19 17:13] LABS: Glucose,Whole Blood 326 mg/dL (75-99)
[2021-03-19 19:57] LABS: Glucose,Whole Blood 321 mg/dL (75-99)
[2021-03-19] MEDS: amLODIPine 10 MG TAB PO SCH (20:06)
[2021-03-19] MEDS: methylPREDNISolone SOD SUCCI 40 MG/ML 1 ML VIAL IV SCH (20:07)
[2021-03-19] MEDS: SODIUM CHLORIDE 0.9% 1,000 ML IV SCH ×2 (20:07→23:29)
[2021-03-19] MEDS ORDERED: TEMAZEPAM 15 MG CAP PO SCH (21:00)
[2021-03-19] MEDS ORDERED: TEMAZEPAM 30 MG CAP PO SCH (21:00)
[2021-03-20] MEDS: MORPHINE SULFATE 2 MG/ML SYRINGE IVP PRN ×4 (02:57→20:56)
[2021-03-20] MEDS: ALBUTEROL HFA INHALER INHALATION PRN ×3 (03:32→21:43)
[2021-03-20] MEDS: ALPRAZolam 0.5 MG TAB PO PRN ×2 (05:18→22:03)
[2021-03-20 07:12] LABS: Glucose,Whole Blood 168 mg/dL (75-99)
--- NOTE | 2021-03-20 07:16 | XR ---
EXAMINATION TYPE: XR chest 1V DATE OF EXAM: 03/20/2021 COMPARISON: 03/18/2021 CLINICAL HISTORY: Difficulty breathing and covid pneumonia progress study. TECHNIQUE: Single AP portable upright view of the chest is obtained. COMPARISON: Chest x-ray from 03/18/2021 FINDINGS: Multifocal left lung airspace opacities redemonstrated. Left-sided volume loss with medias tinal shift again seen. Persistent right basilar reticulonodular opacity. Cardiac silhouette size sta ble and within normal limits. No pneumothorax. Osseous structures are intact. IMPRESSION: Multifocal left lung opacities and left-sided volume loss appear stable. Persistent right basilar reticulonodular opacity. No significant change from most recent x-ray.
[2021-03-20] MEDS: ENOXAPARIN 60 MG/0.6 ML SYRINGE SQ SCH (09:09)
[2021-03-20] MEDS: INSULIN DETEMIR (LEVEMIR) 100 UNIT/ML SYR SQ SCH ×2 (09:09→20:48)
[2021-03-20] MEDS: methylPREDNISolone SOD SUCCI 40 MG/ML 1 ML VIAL IV SCH (09:10)
[2021-03-20] MEDS: INSULIN ASPART (NovoLOG) 100 UNIT/ML VIAL SQ SCH ×4 (09:10→20:49)
[2021-03-20 10:53] LABS: African American GFR (CKD) >90 (>60 ml/min/1.73 sqM); Anion Gap 10 mmol/L; Blood Urea Nitrogen 39 mg/dL (9-20); Calcium 8.5 mg/dL (8.4-10.2); Carbon Dioxide 22 mmol/L (22-30); Chloride 104 mmol/L (98-107); Glucose 161 mg/dL (74-99); Non-African American GFR(CKD) >90 (>60 ml/min/1.73 sqM); Potassium 4.9 mmol/L (3.5-5.1); Sodium 136 mmol/L (137-145)
[2021-03-20] MEDS: SODIUM CHLORIDE 0.9% 1,000 ML IV SCH (11:13)
[2021-03-20 12:04] LABS: Glucose,Whole Blood 195 mg/dL (75-99)
[2021-03-20] MEDS ORDERED: NAPROXEN 250 MG TAB PO SCH (12:15)
--- NOTE | 2021-03-20 12:24 | P.PN ---
Subjective Progress Note Date: 03/20/21 Acute hypoxic respiratory failure secondary to COVID-19 pneumonia. on Airvo 60L fio2 90% Acute COVID-19 pneumonia with multifocal groundglass opacities with lower lung organizing consolidation. Elevated D-dimer level with no evidence of PE on CTA chest Lactic acidosis secondary to hypoxia 55-year-old male with a known history of hypertension and previous history of smoking presents to ER due to worsening shortness of breath since Saturday. Patient states that he flew from [place] about 3 days ago and since then he has been having fever exertional dyspnea and cough and shortness of breath which has been worsening since then. Patient was seen at outpatient clinic today and was diagnosed with COVID-19. Patient was found to be hypoxic and was having exertional dyspnea and sent to ER. Pulse ox was in the 70s as reported. Patient was dyspneic on on admission and was placed on 100% nonrebreather at 15 L oxygen and FiO2 90%. Her oxygen saturations went up to 88 to 90%. On admission blood pressure was 151/88 respiratory rate 30 heart rate 129 and pulse ox 88% on 15 L oxygen via nonrebreather. Chest x-ray showed interval development of interstitial perihilar and basilar infiltrates compatible with COVID-19 pneumonia. CTA chest showed no evidence of PE. Multifocal and confluent groundglass opacities with lower lung organizing consolidation bilaterally consistent with COVID-19 infection EKG showed sinus tachycardia 03/10/2021 Patient is seen and evaluated in follow-up on the regular medical floor. He is currently resting fairly comfortably in bed. Awake and alert in no acute distr ess. He is still requiring AirVo high flow oxygen at 60 L and 90% FiO2 plus a nonrebreather mask to maintain O2 saturations in the low 90s. Currently afebrile. Hemodynamically stable. Blood cultures reveal no growth. D-dimer up to 5.12. Sodium 135. Potassium 4.7. Creatinine 0.7. Glucose 200. LDH 832. C-reactive protein less than 0.4. He remains on Decadron, Lovenox, vitamin supplements. Pulmonary on board and recommending to increase Lovenox to 45 mg subcu twice a day; Decadron switched to IV Solu-Medrol 60 mg every 6 hours; continue to titrate FiO2 as able Repeat chest x-ray tomorrow morning; CODE STATUS has been changed to DO NOT RESUSCITATE/DO NOT INTUBATE per patient and family request 03/11/2021 Patient is seen in follow-up on the regular medical floor. He is currently resting in bed laying on his left side which is his preferred positioning. He is still on airflow high flow oxygen at 60 L and 90% FiO2 plus a nonrebreather mask. Not making much progress. Chest x-ray continues to show diffuse interstitial alveolar infiltrates. Stable compared to previous. D-dimer 6.68. Blood glucose 254. He remains on Lovenox 45 mg subcu twice a day. Continued on vitamin supplements. IV Solu-Medrol. His appetite is good. Working with the incentive spirometer. 03/12/2021 Patient is seen and evaluated in follow-up on the regular medical floor. He is currently resting comfortably in bed. No worsening shortness of breath, cough or congestion. Still dyspneic with exertion and conversation. He is able to be turned down on the airflow to 60 L and 85% FiO2 was then nonrebreather mask. O2 saturations in the low 90s. He remains on bronchodilators, IV Solu-Medrol, vitamin supplements. Lovenox at 45 mg subcu twice a day. Appetite is good. Continues to work well with the incentive spirometer. We will continue with current management; titrate FiO2 as able; patient has been encouraged to use incentive spirometry; inflammatory markers and follow-up chest x-ray tomorrow morning; pulmonary on board and recommending to continue current treatment. 03/13/2021 Patient remains on aivo with FiO2 of 85% and 60 L of oxygen although saturating 99% patient is feeling better bit tachycardic. 03/14/2021 Patient is seen and evaluated and follow-up continues to be on Airvo with a flow rate of 60 and an FiO2 of 82 with 91% oxygen saturation. Patient also continues to use a partial nonrebreather intermittently. Patient states he hasn't been up out of the bed much although continues to rotate from side to side on his own. Patient is tolerating diet with no reported nausea or vomiting noted. Pulmonary is following closely. Blood sugars continue to be elevated and patient is on an insulin drip at 13 mL's per hour currently. Patient also continues with IV Solu-Medrol every 6 hours along with vitamin and zinc supplements and Lovenox has been adjusted to 40 mg subcutaneous daily. Will repeat basic labs along with inflammatory markers and monitor closely. 03/15/2021 Patient is seen in follow-up continues on airvo with titrating as tolerated current flow rate is 60 and FiO2 has been decreased to 70 and maintaining 87-90% oxygen saturation. Patient continues on IV steroids every 6 hours and was on insulin drip and will transition to sliding scale along with long-acting and monitor closely. Inflammatory markers trending down although d-dimer is elevated again at 4.33 and increasing Lovenox to twice daily. White blood count 16.70 and hemoglobin is 18.4. 03/16/2021 Patient is seen in follow-up maintained on Airvo with a flow rate of 60 and an FiO2 of 60 maintaining 89-94% oxygen saturation. Last night patient was having some irritation and redness and feeling of fullness in the bladder and did have indwelling Cabrera catheter which I ordered to discontinue and patient was able to fully void and felt much better with no difficulties in urinating. Patient has been urinating in the urinal no problems today. Blood sugars are variable and off the insulin drip and will continue with sliding scale and will increase long-acting and repeat a.m. labs. 03/17/2021 Patient is seen and evaluated in follow-up continuing to wean FiO2 as tolerated. Patient continues on Airvo with current settings of a flow rate of 55 and FiO2 of 55 maintaining low 90s oxygen saturation. Patient states his breathing is slightly improved although remains dyspneic with minimal exertion and continues to a on his side to side alternating. Continues to have elevated blood sugars and attempting to avoid an insulin drip again and will continue with long-acting and will add long-acting at night as well and continue sliding scale. Patient has been educated multiple times on his choice of foods as he continues to drink pop, eat chocolate doughnuts and candy throughout the day. certified breastfeeding educator has been consulted. Continue with consistent carb diet. Will repeat a.m. chest x-ray. White blood count 17.3, sodium 134 with a potassium of 4.8 and creatinine is 0.60. LDH is 1381 and pro-calcitonin is 0.15. D-dimer has gone d own to 0.82 and will titrate Lovenox to daily. 03/18/2021 Patient seen on follow-up, on Airvo 50 L a minute, marginal O2 saturations, no fever. Does get somewhat short of breath when speaking. Chest x-ray showing multifocal opacities left-sided volume loss, stable from previous. He is continued on IV Solu-Medrol 60 every 6 hours, hyperglycemic blood glucose 326. 03/19/2021 Patient seen on reevaluation, on [place] O 40 L a minute, O2 saturations are marginal. Increased respiratory rate, tachycardic, blood pressure is stable, patient is quite anxious to go home despite his high oxygen requirements, explained that his oxygen requirements would have to come down significantly until he can be discharged. His continued on IV Solu-Medrol 40 twice daily, Colin sánchez, had difficulty sleeping last night was started on Restoril. Blood sugars are running in the 200s, we will hold off on adjusting insulin as steroids have been cut down. 03/20/2021 Patient is seen and evaluated in follow-up this morning is having some right- sided rib and flank pain on continues have shortness of breath with minimal exertion. Patient is requesting aleve for pain. Kidney function stable and will add Naprosyn. Chest x-ray shows slight focal left lung opacification left- sided volume loss appears stable with persistent right basilar reticulonodular opacities and no significant change from previous x-ray. Patient has been alternating positions from side to side and feels he slept on the side wrong and that is what is causing the discomfort. D-dimer repeated today slightly elevated at 1.62 and is maintained on Lovenox. TSH was done which was normal. Blood sugars variable although a little more controlled and will continue with long-acting twice daily along with sliding scale. Constitutional: Denied any fatigue denied any fever. Cardio vascular: denied any chest pain, palpitations Gastrointestinal denied any nausea vomiting Pulmonary: Having right-sided sharp rib and side pain Neurologic denied any new focal deficits All inpatient medications were reviewed and appropriate changes in these medications as dictated in the interval history and assessment and plan. Objective - Vital Signs Vital signs: Vital Signs Temp 98.6 F 03/20/21 07:51 Pulse 131 H 03/20/21 07:51 Resp 24 03/20/21 07:51 BP 130/98 03/20/21 07:51 Pulse Ox 84 L 03/20/21 07:51 Intake & Output 03/19/21 03/20/21 03/20/21 18:59 06:59 18:59 Intake Total 600 Output Total 0 500 Balance 600 -500 Intake: Intake, IV Titration 600 Amount Sodium Chloride 0.9% 1, 600 000 ml @ 75 mls/hr IV . [id number] [facility] Rx#:[id number] Output: Urine 500 Stool 0 Other: Voiding Method Urinal Urinal # Voids 4 - Exam GENERAL: The patient is alert and oriented x3, not in any acute distress. Well developed, well nourished. HEENT: Pupils are round and equally reacting to light. EOMI. No scleral icterus. No conjunctival pallor. Normocephalic, atraumatic. No pharyngeal erythema. No thyromegaly. CARDIOVASCULAR: S1 and S2 present. No murmurs, rubs, or gallops. PULMONARY: Diminished breath sounds with scattered Bilateral rhonchi noted on exam ABDOMEN: Soft, obese, non-tender, non-distended, normoactive bowel sounds. No palpable organomegaly. MUSCULOSKELETAL: No joint swelling or deformity. Right-sided rib discomfort EXTREMITIES: No cyanosis, clubbing, or pedal edema. NEUROLOGICAL: Gross neurological examination did not reveal any focal deficits. SKIN: No rashes. - Labs CBC & Chem 7: 03/17/21 06:19 03/20/21 10:11 Labs: Abnormal Lab Results - Last 24 Hours (Table) 03/19/21 03/19/21 03/19/21 Range/Units 11:36 17:11 19:55 POC Glucose (mg/dL) 274 H 326 H 321 H (75-99) mg/dL 03/20/21 Range/Units 07:11 POC Glucose (mg/dL) 168 H (75-99) mg/dL Assessment and Plan Assessment: Acute hypoxic respiratory failure secondary to COVID-19 pneumonia. on Airvo 45L fio2 at 55%, continues in the high 84-87% oxygen saturation and also using 15 L nonrebreather. Transition to oral prednisone, Lovenox, received Tocilizumab on 03/02/2021 Acute COVID-19 pneumonia with multifocal groundglass opacities with lower lung organizing consolidation. Hyperglycemia secondary to steroids, continue with sliding scale and long-acting and twice daily long-acting and continue to monitor Accu-Cheks before meals and at bedtime Elevated D-dimer level with no evidence of PE on CTA chest, d-dimer at 1.62 and maintained on Lovenox daily Lactic acidosis secondary to hypoxia improved now Leukopenia Acute kidney injury with creatinine 1.42, improved current creatinine is 0.56 Elevated inflammatory markers Hypertension DVT prophylaxis Lovenox. Plan: Continue with current medications and continue to wean FiO2 as tolerated. Continue with inhalers and have transitioned oral prednisone. Continue with sliding scale and twice daily long-acting and will continue and continue to monitor Accu-Cheks before meals and at bedtime. Patient continues to be on Airvo with a flow rate of 45 and an FiO2 of 55% pulmonary is following.. Also requiring 15 L nonrebreather. Patient is having some right-sided chest and rib pain and chest x-ray shows no significant change from previous. Patient instructed to continue with prone position as tolerated.
--- NOTE | 2021-03-20 13:31 | P.PN ---
Subjective Progress Note Date: 03/20/21 55-year-old male patient, diagnosed having COVID-19 infection 03/20/2021, the patient is being seen for a follow-up. Is a case of severe COVID-19 related pneumonia with diffuse but the pulmonary infiltrates/ARDS. He has required high flow oxygen and currently is on oxygen at 45 L with an FiO2 of 55%. The patient is also using 100% on a beta facemasks. Over the past 2 weeks, there has been some limited progress in his condition. Chest x-ray findings are essentially unchanged and stable. He is able to tolerate diet. Mentally is alert and awake in his communicating. Of course he is a bit di scouraged and disappointed due to his prolonged hospitalization. He d-dimer is at 1.62. His pro-calcitonin level is at 0.15. Normal renal function. Most recent LDH from 03/17/2021 is 1381. He is on medication which includes 40 mg of prednisone a daily basis, he remains on Lovenox 45 mg subcu once a day and he is also on Levemir 40 units in the morning 25 units in the evening and a NovoLog sliding scale coverage.No leg swelling. No nausea. No vomiting. No diarrhea. No abdominal pain. Objective - Vital Signs Vital signs: Vital Signs Temp 96.8 F L 03/20/21 10:00 Pulse 130 H 03/20/21 10:00 Resp 42 H 03/20/21 10:00 BP 123/85 03/20/21 10:00 Pulse Ox 87 L 03/20/21 10:00 Intake & Output 03/19/21 03/20/21 03/20/21 18:59 06:59 18:59 Intake Total 600 Output Total 0 500 Balance 600 -500 Intake: Intake, IV Titration 600 Amount Sodium Chloride 0.9% 1, 600 000 ml @ 75 mls/hr IV . [id number] [facility] Rx#:[id number] Output: Urine 500 Stool 0 Other: Voiding Method Urinal Urinal # Voids 4 - Exam GENERAL EXAM: Alert, pleasant 55-year-old gentleman, on AirVo high flow oxygen at 45 L and 55% FiO2, fairly comfortable in no apparent distress. He is back on 100% nonrebreather facemask HEAD: Normocephalic. EYES: Normal reaction of pupils, equal size. NOSE: Clear with pink turbinates. THROAT: No erythema or exudates. NECK: No masses, no JVD. CHEST: No chest wall deformity. LUNGS: Equal air entry with coarse crackles in the bilateral posterior bases. CVS: S1 and S2 normal with no audible murmur, regular rhythm. ABDOMEN: No hepatosplenomegaly, normal bowel sounds, no guarding or rigidity. SPINE: No scoliosis or deformity SKIN: No rashes CENTRAL NERVOUS SYSTEM: No focal deficits, tone is normal in all 4 extremities. EXTREMITIES: There is no peripheral edema. No clubbing, no cyanosis. Peripheral pulses are intact. - Labs CBC & Chem 7: 03/17/21 06:19 03/20/21 10:11 Labs: Abnormal Lab Results - Last 24 Hours (Table) 03/19/21 03/19/21 03/20/21 Range/Units 17:11 19:55 07:11 D-Dimer (<0.60) mg/L FEU Sodium (137-145) mmol/L BUN (9-20) mg/dL Creatinine (0.66-1.25) mg/dL Glucose (74-99) mg/dL POC Glucose (mg/dL) 326 H 321 H 168 H (75-99) mg/dL 03/20/21 03/20/21 03/20/21 Range/Units 10:11 10:11 12:03 D-Dimer 1.62 H (<0.60) mg/L FEU Sodium 136 L (137-145) mmol/L BUN 39 H (9-20) mg/dL Creatinine 0.56 L (0.66-1.25) mg/dL Glucose 161 H (74-99) mg/dL POC Glucose (mg/dL) 195 H (75-99) mg/dL Assessment and Plan Plan: 1 Acute COVID-19 related pneumonia with diffuse bilateral pulmonary infiltrates/groundglass changes. Patient started getting symptoms approximately 5 days prior to and was diagnosed having COVID-19 infection on 03/01/2021 and a diagnosis was established at [facility]. He remains hypoxic and currently is on AirVo high flow oxygen 45 L with an FiO2 of 55%. Received Tocilizumab on 03/02/2021. Fortunately, the patient's recovery has been extremely slow. The patient has COVID-19 related pneumonia with diffuse bilateral pulmonary infiltrates and the patient has limited recovery and he is still requiring high flow oxygen. He remains on prednisone 40 mg by mouth daily. He is on Lovenox 40 mg subcu every 24 hours. His most recent LDH from 03/17/2021 was still elevated. 2 Acute hypoxic respiratory failure secondary to above 3 Elevated inflammatory markers secondary to COVID-19 related infection/pneumonia 4 COPD 5 Acute kidney injury, recovered, creatinine 0.6 6 Hypertension Plan: IV fluids to KVO Encourage use of incentive spirometer Restoril 15 mg at bedtime Chest x-ray from today is essentially unchanged Continue the current treatment plan Titrate the FiO2 as tolerated Increase the incentive spirometry use and encourage cough and deep breathing We will continue to follow
[2021-03-20] MEDS: ASCORBIC ACID 500 MG TAB PO SCH (15:13)
[2021-03-20] MEDS: ZINC SULFATE 220 MG CAP PO SCH (15:13)
[2021-03-20] MEDS: CHOLECALCIFEROL 25 MCG (1000 IU) TABLET PO SCH (15:13)
[2021-03-20] MEDS: FAMOTIDINE 20 MG TAB PO SCH ×2 (15:13→20:47)
[2021-03-20] MEDS: predniSONE 20 MG TAB PO SCH (15:13)
[2021-03-20] MEDS: NAPROXEN 250 MG TAB PO PRN ×2 (16:55→20:46)
[2021-03-20 17:14] LABS: Glucose,Whole Blood 179 mg/dL (75-99)
[2021-03-20 20:39] LABS: Glucose,Whole Blood 217 mg/dL (75-99)
[2021-03-20] MEDS: TEMAZEPAM 15 MG CAP PO SCH (20:47)
[2021-03-20] MEDS: amLODIPine 10 MG TAB PO SCH (20:47)
[2021-03-21] MEDS: SODIUM CHLORIDE 0.9% 1,000 ML IV SCH ×2 (00:57→12:44)
[2021-03-21 07:01] LABS: Glucose,Whole Blood 81 mg/dL (75-99)
[2021-03-21] MEDS: INSULIN DETEMIR (LEVEMIR) 100 UNIT/ML SYR SQ SCH ×2 (08:21→21:31)
[2021-03-21] MEDS: predniSONE 20 MG TAB PO SCH (08:22)
[2021-03-21] MEDS: FAMOTIDINE 20 MG TAB PO SCH ×2 (08:22→21:30)
[2021-03-21] MEDS: ENOXAPARIN 40 MG/0.4 ML SYRINGE SQ SCH (08:22)
[2021-03-21] MEDS: ASCORBIC ACID 500 MG TAB PO SCH (08:22)
[2021-03-21] MEDS: INSULIN ASPART (NovoLOG) 100 UNIT/ML VIAL SQ SCH ×4 (08:22→21:31)
[2021-03-21] MEDS: ZINC SULFATE 220 MG CAP PO SCH (08:22)
[2021-03-21] MEDS: CHOLECALCIFEROL 25 MCG (1000 IU) TABLET PO SCH (08:22)
[2021-03-21] MEDS: ALBUTEROL HFA INHALER INHALATION PRN ×3 (09:27→16:18)
[2021-03-21 12:10] LABS: Glucose,Whole Blood 235 mg/dL (75-99)
--- NOTE | 2021-03-21 13:08 | P.PN ---
Subjective Progress Note Date: 03/21/21 55-year-old male patient, diagnosed having COVID-19 infection 03/20/2021, the patient is being seen for a follow-up. Is a case of severe COVID-19 related pneumonia with diffuse but the pulmonary infiltrates/ARDS. He has required high flow oxygen and currently is on oxygen at 45 L with an FiO2 of 55%. The patient is also using 100% on a beta facemasks. Over the past 2 weeks, there has been some limited progress in his condition. Chest x-ray findings are essentially unchanged and stable. He is able to tolerate diet. Mentally is alert and awake in his communicating. Of course he is a bit di scouraged and disappointed due to his prolonged hospitalization. He d-dimer is at 1.62. His pro-calcitonin level is at 0.15. Normal renal function. Most recent LDH from 03/17/2021 is 1381. He is on medication which includes 40 mg of prednisone a daily basis, he remains on Lovenox 45 mg subcu once a day and he is also on Levemir 40 units in the morning 25 units in the evening and a NovoLog sliding scale coverage.No leg swelling. No nausea. No vomiting. No diarrhea. No abdominal pain. 2020, the patient is feeling better according to himself. He feels less short of breath. He is off the 100% nonrebreather facemask and he remains on high flow oxygen at 55 L with an FiO2 of 85%. He is being titrated to maintain a saturation above 90%. This current pulse ox is 91%. Alert and awake and communicating. Tolerating diet. Labs showed a d-dimer of 1.62 from yesterday, sugars from today's at 235. Otherwise, the rest of the labs are still pending for now. He remains on prednisone 40 mg by mouth daily. He is on Lovenox 40 mg subcu every 24 hours. He remains on Levemir insulin 40 units daily a.m. and 25 units in p.m. along with a sliding scale coverage. Afebrile. No signs of any fluid overload. IV fluids are running at the rate of 75 mL an hour of normal saline. Remains on multivitamins. Remains on restoril for sleep. Objective - Vital Signs Vital signs: Vital Signs Temp 96.8 F L 03/21/21 11:26 Pulse 113 H 03/21/21 11:26 Resp 22 03/21/21 11:26 BP 107/74 03/21/21 11:26 Pulse Ox 91 L 03/21/21 11:26 Intake & Output 03/20/21 03/21/21 03/21/21 18:59 06:59 18:59 Output Total 0 Balance 0 Output: Stool 0 Other: Voiding Method Urinal Urinal Urinal # Voids 3 1 - Exam GENERAL EXAM: Alert, pleasant 55-year-old gentleman, on AirVo high flow oxygen at 55 L and 85% FiO2, fairly comfortable in no apparent distress. He is back on 100% nonrebreather facemask HEAD: Normocephalic. EYES: Normal reaction of pupils, equal size. NOSE: Clear with pink turbinates. THROAT: No erythema or exudates. NECK: No masses, no JVD. CHEST: No chest wall deformity. LUNGS: Equal air entry with coarse crackles in the bilateral posterior bases. CVS: S1 and S2 normal with no audible murmur, regular rhythm. ABDOMEN: No hepatosplenomegaly, normal bowel sounds, no guarding or rigidity. SPINE: No scoliosis or deformity SKIN: No rashes CENTRAL NERVOUS SYSTEM: No focal deficits, tone is normal in all 4 extremities. EXTREMITIES: There is no peripheral edema. No clubbing, no cyanosis. Peripheral pulses are intact. - Labs CBC & Chem 7: 03/17/21 06:19 03/20/21 10:11 Labs: Abnormal Lab Results - Last 24 Hours (Table) 03/20/21 03/20/21 03/21/21 Range/Units 17:12 20:38 12:08 POC Glucose (mg/dL) 179 H 217 H 235 H (75-99) mg/dL Assessment and Plan Plan: 1 Acute COVID-19 related pneumonia with diffuse bilateral pulmonary infiltrates/groundglass changes. Patient started getting symptoms approximately 5 days prior to and was diagnosed having COVID-19 infection on 03/01/2021 and a diagnosis was established at [facility]. He remains hypoxic and currently is on AirVo high flow oxygen 55 L with an FiO2 of 85%. Received Tocilizumab on 03/02/2021. Fortunately, the patient's recovery has been extremely slow. The patient has COVID-19 related pneumonia with diffuse bilateral pulmonary infiltrates and the patient has limited recovery and he is still requiring high flow oxygen. He remains on prednisone 40 mg by mouth daily. He is on Lovenox 40 mg subcu every 24 hours. His most recent LDH from 03/17/2021 was still elevated. This morning, he is off the 100% rebreather facemask and he is u tilizing only the high flow oxygen. 2 Acute hypoxic respiratory failure secondary to above 3 Elevated inflammatory markers secondary to COVID-19 related infection/pneumonia 4 COPD 5 Acute kidney injury, recovered, creatinine 0.6 6 Hypertension Plan: IV fluids to KVO Encourage use of incentive spirometer, currently pulling approximately 8000 on his incentive spirometer Continue prednisone 40 mg by mouth daily Continue Lovenox 40 mg subcu daily Restoril 15 mg at bedtime Chest x-ray from today is essentially unchanged Continue the current treatment plan Titrate the FiO2 as tolerated Increase the incentive spirometry use and encourage cough and deep breathing We will continue to follow
[2021-03-21 17:03] LABS: Glucose,Whole Blood 451 mg/dL (75-99)
--- NOTE | 2021-03-21 19:38 | P.PN ---
Subjective Progress Note Date: 03/21/21 Acute hypoxic respiratory failure secondary to COVID-19 pneumonia. on Airvo 60L fio2 90% Acute COVID-19 pneumonia with multifocal groundglass opacities with lower lung organizing consolidation. Elevated D-dimer level with no evidence of PE on CTA chest Lactic acidosis secondary to hypoxia 55-year-old male with a known history of hypertension and previous history of smoking presents to ER due to worsening shortness of breath since Saturday. Patient states that he flew from [place] about 3 days ago and since then he has been having fever exertional dyspnea and cough and shortness of breath which has been worsening since then. Patient was seen at outpatient clinic today and was diagnosed with COVID-19. Patient was found to be hypoxic and was having exertional dyspnea and sent to ER. Pulse ox was in the 70s as reported. Patient was dyspneic on on admission and was placed on 100% nonrebreather at 15 L oxygen and FiO2 90%. Her oxygen saturations went up to 88 to 90%. On admission blood pressure was 151/88 respiratory rate 30 heart rate 129 and pulse ox 88% on 15 L oxygen via nonrebreather. Chest x-ray showed interval development of interstitial perihilar and basilar infiltrates compatible with COVID-19 pneumonia. CTA chest showed no evidence of PE. Multifocal and confluent groundglass opacities with lower lung organizing consolidation bilaterally consistent with COVID-19 infection EKG showed sinus tachycardia 03/10/2021 Patient is seen and evaluated in follow-up on the regular medical floor. He is currently resting fairly comfortably in bed. Awake and alert in no acute distr ess. He is still requiring AirVo high flow oxygen at 60 L and 90% FiO2 plus a nonrebreather mask to maintain O2 saturations in the low 90s. Currently afebrile. Hemodynamically stable. Blood cultures reveal no growth. D-dimer up to 5.12. Sodium 135. Potassium 4.7. Creatinine 0.7. Glucose 200. LDH 832. C-reactive protein less than 0.4. He remains on Decadron, Lovenox, vitamin supplements. Pulmonary on board and recommending to increase Lovenox to 45 mg subcu twice a day; Decadron switched to IV Solu-Medrol 60 mg every 6 hours; continue to titrate FiO2 as able Repeat chest x-ray tomorrow morning; CODE STATUS has been changed to DO NOT RESUSCITATE/DO NOT INTUBATE per patient and family request 03/11/2021 Patient is seen in follow-up on the regular medical floor. He is currently resting in bed laying on his left side which is his preferred positioning. He is still on airflow high flow oxygen at 60 L and 90% FiO2 plus a nonrebreather mask. Not making much progress. Chest x-ray continues to show diffuse interstitial alveolar infiltrates. Stable compared to previous. D-dimer 6.68. Blood glucose 254. He remains on Lovenox 45 mg subcu twice a day. Continued on vitamin supplements. IV Solu-Medrol. His appetite is good. Working with the incentive spirometer. 03/12/2021 Patient is seen and evaluated in follow-up on the regular medical floor. He is currently resting comfortably in bed. No worsening shortness of breath, cough or congestion. Still dyspneic with exertion and conversation. He is able to be turned down on the airflow to 60 L and 85% FiO2 was then nonrebreather mask. O2 saturations in the low 90s. He remains on bronchodilators, IV Solu-Medrol, vitamin supplements. Lovenox at 45 mg subcu twice a day. Appetite is good. Continues to work well with the incentive spirometer. We will continue with current management; titrate FiO2 as able; patient has been encouraged to use incentive spirometry; inflammatory markers and follow-up chest x-ray tomorrow morning; pulmonary on board and recommending to continue current treatment. 03/13/2021 Patient remains on aivo with FiO2 of 85% and 60 L of oxygen although saturating 99% patient is feeling better bit tachycardic. 03/14/2021 Patient is seen and evaluated and follow-up continues to be on Airvo with a flow rate of 60 and an FiO2 of 82 with 91% oxygen saturation. Patient also continues to use a partial nonrebreather intermittently. Patient states he hasn't been up out of the bed much although continues to rotate from side to side on his own. Patient is tolerating diet with no reported nausea or vomiting noted. Pulmonary is following closely. Blood sugars continue to be elevated and patient is on an insulin drip at 13 mL's per hour currently. Patient also continues with IV Solu-Medrol every 6 hours along with vitamin and zinc supplements and Lovenox has been adjusted to 40 mg subcutaneous daily. Will repeat basic labs along with inflammatory markers and monitor closely. 03/15/2021 Patient is seen in follow-up continues on airvo with titrating as tolerated current flow rate is 60 and FiO2 has been decreased to 70 and maintaining 87-90% oxygen saturation. Patient continues on IV steroids every 6 hours and was on insulin drip and will transition to sliding scale along with long-acting and monitor closely. Inflammatory markers trending down although d-dimer is elevated again at 4.33 and increasing Lovenox to twice daily. White blood count 16.70 and hemoglobin is 18.4. 03/16/2021 Patient is seen in follow-up maintained on Airvo with a flow rate of 60 and an FiO2 of 60 maintaining 89-94% oxygen saturation. Last night patient was having some irritation and redness and feeling of fullness in the bladder and did have indwelling Cabrera catheter which I ordered to discontinue and patient was able to fully void and felt much better with no difficulties in urinating. Patient has been urinating in the urinal no problems today. Blood sugars are variable and off the insulin drip and will continue with sliding scale and will increase long-acting and repeat a.m. labs. 03/17/2021 Patient is seen and evaluated in follow-up continuing to wean FiO2 as tolerated. Patient continues on Airvo with current settings of a flow rate of 55 and FiO2 of 55 maintaining low 90s oxygen saturation. Patient states his breathing is slightly improved although remains dyspneic with minimal exertion and continues to a on his side to side alternating. Continues to have elevated blood sugars and attempting to avoid an insulin drip again and will continue with long-acting and will add long-acting at night as well and continue sliding scale. Patient has been educated multiple times on his choice of foods as he continues to drink pop, eat chocolate doughnuts and candy throughout the day. parent educator has been consulted. Continue with consistent carb diet. Will repeat a.m. chest x-ray. White blood count 17.3, sodium 134 with a potassium of 4.8 and creatinine is 0.60. LDH is 1381 and pro-calcitonin is 0.15. D-dimer has gone d own to 0.82 and will titrate Lovenox to daily. 03/18/2021 Patient seen on follow-up, on Airvo 50 L a minute, marginal O2 saturations, no fever. Does get somewhat short of breath when speaking. Chest x-ray showing multifocal opacities left-sided volume loss, stable from previous. He is continued on IV Solu-Medrol 60 every 6 hours, hyperglycemic blood glucose 326. 03/19/2021 Patient seen on reevaluation, on [place] O 40 L a minute, O2 saturations are marginal. Increased respiratory rate, tachycardic, blood pressure is stable, patient is quite anxious to go home despite his high oxygen requirements, explained that his oxygen requirements would have to come down significantly until he can be discharged. His continued on IV Solu-Medrol 40 twice daily, Colin sánchez, had difficulty sleeping last night was started on Restoril. Blood sugars are running in the 200s, we will hold off on adjusting insulin as steroids have been cut down. 03/20/2021 Patient is seen and evaluated in follow-up this morning is having some right- sided rib and flank pain on continues have shortness of breath with minimal exertion. Patient is requesting aleve for pain. Kidney function stable and will add Naprosyn. Chest x-ray shows slight focal left lung opacification left- sided volume loss appears stable with persistent right basilar reticulonodular opacities and no significant change from previous x-ray. Patient has been alternating positions from side to side and feels he slept on the side wrong and that is what is causing the discomfort. D-dimer repeated today slightly elevated at 1.62 and is maintained on Lovenox. TSH was done which was normal. Blood sugars variable although a little more controlled and will continue with long-acting twice daily along with sliding scale. 03/21/2021 Patient seen this morning and weaning FI02 as tolerated. Currently remains on Airvo with a flow rate of 55 and Fi02 of 85% but not using additional oxygen with non-rebreather today and states he feels his breathing has improved. Patient continue to be dyspneic with minimal exertion. Patient denying any further right side pain on exam. Patient sugar was 80 this am and morning dose of long acting held and then continued steady rise in the 200s for lunch. Continue current medication regimen. Repeat labs and inflammatory markers with repeat chest xray in the am. Constitutional: Denied any fatigue denied any fever. Cardio vascular: denied any chest pain, palpitations Gastrointestinal denied any nausea vomiting Pulmonary: continued shortness of breath with exertion and position changes Neurologic denied any new focal deficits All inpatient medications were reviewed and appropriate changes in these medications as dictated in the interval history and assessment and plan. Objective - Vital Signs Vital signs: Vital Signs Temp 98.1 F 03/21/21 06:09 Pulse 110 H 03/21/21 06:09 Resp 22 03/20/21 20:00 BP 121/82 03/21/21 06:09 Pulse Ox 90 L 03/21/21 06:09 Intake & Output 03/20/21 03/21/21 03/21/21 18:59 06:59 18:59 Output Total 0 Balance 0 Output: Stool 0 Other: Voiding Method Urinal Urinal # Voids 3 1 - Exam GENERAL: The patient is alert and oriented x3, not in any acute distress. Well developed, well nourished. HEENT: Pupils are round and equally reacting to light. EOMI. No scleral icterus. No conjunctival pallor. Normocephalic, atraumatic. No pharyngeal erythema. No thyromegaly. CARDIOVASCULAR: S1 and S2 present. No murmurs, rubs, or gallops. PULMONARY: Diminished breath sounds with scattered Bilateral rhonchi noted on exam ABDOMEN: Soft, obese, non-tender, non-distended, normoactive bowel sounds. No palpable organomegaly. MUSCULOSKELETAL: No joint swelling or deformity. Right-sided rib discomfort EXTREMITIES: No cyanosis, clubbing, or pedal edema. NEUROLOGICAL: Gross neurological examination did not reveal any focal deficits. SKIN: No rashes. - Labs CBC & Chem 7: 03/17/21 06:19 03/20/21 10:11 Labs: Abnormal Lab Results - Last 24 Hours (Table) 03/20/21 03/20/21 03/20/21 Range/Units 10:11 10:11 12:03 D-Dimer 1.62 H (<0.60) mg/L FEU Sodium 136 L (137-145) mmol/L BUN 39 H (9-20) mg/dL Creatinine 0.56 L (0.66-1.25) mg/dL Glucose 161 H (74-99) mg/dL POC Glucose (mg/dL) 195 H (75-99) mg/dL 03/20/21 03/20/21 Range/Units 17:12 20:38 D-Dimer (<0.60) mg/L FEU Sodium (137-145) mmol/L BUN (9-20) mg/dL Creatinine (0.66-1.25) mg/dL Glucose (74-99) mg/dL POC Glucose (mg/dL) 179 H 217 H (75-99) mg/dL Assessment and Plan Assessment: Acute hypoxic respiratory failure secondary to COVID-19 pneumonia. on Airvo 55L fio2 at 85%, continues in the low 90% oxygen saturation and not requiring additional 15 L nonrebreather. Transition to oral prednisone, Lovenox, received Tocilizumab on 03/02/2021 Acute COVID-19 pneumonia with multifocal groundglass opacities with lower lung organizing consolidation. Hyperglycemia secondary to steroids, continue with sliding scale and long-acting and twice daily long-acting and continue to monitor Accu-Cheks before meals and at bedtime Elevated D-dimer level with no evidence of PE on CTA chest, d-dimer at 1.62 and maintained on Lovenox daily Lactic acidosis secondary to hypoxia improved now Leukopenia Acute kidney injury with creatinine 1.42, improved Elevated inflammatory markers Hypertension DVT prophylaxis Lovenox. Plan: Continue with current medications and continue to wean FiO2 as tolerated. Continue with inhalers and have transitioned oral prednisone. Continue with sliding scale and twice daily long-acting and will continue and continue to mon itor Accu-Cheks before meals and at bedtime. Patient continues to be on Airvo with a flow rate of 55 and an FiO2 of 85% pulmonary is following.. Not requiring additional 15 L nonrebreather today. Repeat chest xray, inflammatory markers, and basic labs in the am.
[2021-03-21 20:25] LABS: Glucose,Whole Blood 338 mg/dL (75-99)
[2021-03-21] MEDS: TEMAZEPAM 15 MG CAP PO SCH (21:29)
[2021-03-21] MEDS: amLODIPine 10 MG TAB PO SCH (21:31)
[2021-03-21] MEDS: NAPROXEN 250 MG TAB PO PRN (22:40)
[2021-03-21] MEDS: MORPHINE SULFATE 2 MG/ML SYRINGE IVP PRN (23:22)
[2021-03-21] MEDS: ALPRAZolam 0.5 MG TAB PO PRN (23:53)
[2021-03-22] MEDS: MORPHINE SULFATE 2 MG/ML SYRINGE IVP PRN ×2 (03:50→09:12)
[2021-03-22] MEDS: SODIUM CHLORIDE 0.9% 1,000 ML IV SCH ×2 (04:11→17:17)
[2021-03-22 07:17] LABS: Glucose,Whole Blood 100 mg/dL (75-99)
[2021-03-22 08:02] LABS: African American GFR (CKD) >90 (>60 ml/min/1.73 sqM); Anion Gap 7 mmol/L; Blood Urea Nitrogen 36 mg/dL (9-20); Calcium 8.4 mg/dL (8.4-10.2); Carbon Dioxide 25 mmol/L (22-30); Chloride 104 mmol/L (98-107); Glucose 100 mg/dL (74-99); LDH 1002 U/L (313-618); Non-African American GFR(CKD) >90 (>60 ml/min/1.73 sqM); Potassium 4.2 mmol/L (3.5-5.1); Sodium 136 mmol/L (137-145)
[2021-03-22 08:05] LABS: Basophils % (A) 0 %; Eosinophils # (A) 0.2 k/uL (0-0.7); Eosinophils % (A) 2 %; HCT 54.4 % (39.0-53.0); HGB 17.9 gm/dL (13.0-17.5); Lymphocytes # (A) 0.4 k/uL (1.0-4.8); Lymphocytes % (A) 4 %; MCH 29.7 pg (25.0-35.0); MCHC 32.8 g/dL (31.0-37.0); MCV 90.5 fL (80.0-100.0); Mean Platelet Volume 9.9; Monocytes # (A) 0.3 k/uL (0-1.0); Monocytes % (A) 3 %; Neutrophils % (A) 89 %; RBC 6.02 m/uL (4.30-5.90); RDW 14.8 % (11.5-15.5); WBC 10.1 k/uL (3.8-10.6)
[2021-03-22] MEDS: INSULIN DETEMIR (LEVEMIR) 100 UNIT/ML SYR SQ SCH ×2 (08:22→20:36)
[2021-03-22] MEDS: INSULIN ASPART (NovoLOG) 100 UNIT/ML VIAL SQ SCH ×4 (08:22→20:37)
[2021-03-22] MEDS: ENOXAPARIN 40 MG/0.4 ML SYRINGE SQ SCH (09:00)
[2021-03-22] MEDS: FAMOTIDINE 20 MG TAB PO SCH ×2 (09:00→20:34)
[2021-03-22] MEDS: ZINC SULFATE 220 MG CAP PO SCH (09:00)
[2021-03-22] MEDS: ASCORBIC ACID 500 MG TAB PO SCH (09:00)
[2021-03-22] MEDS: CHOLECALCIFEROL 25 MCG (1000 IU) TABLET PO SCH (09:00)
[2021-03-22] MEDS: predniSONE 20 MG TAB PO SCH (09:00)
[2021-03-22 09:08] LABS: C Reactive Protein 26.4 mg/dL (<1.0)
--- NOTE | 2021-03-22 09:13 | XR ---
EXAMINATION TYPE: XR chest 1V portable DATE OF EXAM: 03/22/2021 COMPARISON: 03/20/2021 HISTORY: Shortness of breath TECHNIQUE: Single frontal view of the chest is obtained. FINDINGS: Low lung volumes.Multifocal left lung airspace opacities redemonstrated. Left-sided volume loss with mediastinal shift again seen. Increasing right basilar airspace opacity with mild diffuse interstitial prominence. Cardiac silhouette size stable and within normal limits. No pneumothorax. IMPRESSION: 1. Multifocal left lung opacities and left-sided volume loss appear stable. These findings appear sta ble to slightly increased since prior exam. 2. Increasing right basilar airspace opacity. Mild diffuse right lung interstitial prominence.
[2021-03-22 09:24] LABS: Platelet Count 22 k/uL (150-450)
[2021-03-22 09:25] LABS: Anisocytosis (M) Present; Poikilocytosis (M) Present
[2021-03-22 11:27] LABS: Glucose,Whole Blood 122 mg/dL (75-99)
--- NOTE | 2021-03-22 15:55 | P.PN ---
Subjective Progress Note Date: 03/22/21 55-year-old male patient, diagnosed having COVID-19 infection, as the patient started getting symptomatic approximately 5 days ago. He started having some fevers initially and following that he started having increased cough and shortness of breath and for that reason he came into the hospital. He was di agnosed having COVID-19 pneumonia. In the emergency department, the patient was hypoxic with pulse ox of 70% and he was short of breath. He was placed on 100% nonrebreather facemask and his pulse ox was brought up to 90%. He was hemodynamically stable. His chest x-ray showed bilateral interstitial pulmonary infiltrates most on the lower lobes although difficulties are rather diffuse. His blood work at a time of admission showed normal white cell count of 4.2 with a lymphopenia. His d-dimer is at 1.1, he had an acute kidney injury with a creatinine of 1.4 which improvement in the creatinine is down to 0.9, LDH is significantly elevated at 2539, with a CRP level of 15.4 and appropriate acetone level of 0.4. Coagulation profile is within normal limits. Blood sugar was 168. He also underwent a CT angiogram of the chest that showed no evidence of any pulmonary embolism. There was found to have emphysema and a background in addition to bilateral groundglass pulmonary infiltrates scattered throughout the lung hirsch bilaterally both in the upper and lower lobes. Some minimal areas of consolidation in the lung bases. The rest is essentially consistent with groundglass pulmonary infiltrates. No mediastinal lymphadenopathy. No pulmonary embolism. 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 He was in [place] on his last trip, he started getting symptomatic approximately 5 days ago. He was in [place] and [place] the week prior. It, the patient's oxidation got worse and the patient was placed on high flow oxygen and currently is on 60 L of oxygen by nasal cannula with a 90% FiO2 and a nonrebreather facemask. He is currently on Decadron 6 mg by mouth on a daily basis and the patient is also on Lovenox 40 mg subcu daily. Comorbid conditions include COPD and hypertension. 69 was quite dehydrated as the patient was not taken oral intake and he was quite intravascularly depleted with an acute kidney injury. On 03/03/2021 patient seen in follow-up in the intensive care unit, he is resting in bed on his left side, he is currently on Airvo 60 L and FiO2 of 90% and 100% nonrebreather mask and his pulse ox is 90-95%. He has 0.9 normal saline at 75 ML per hour, no other drips, he status post Tocilizumab 720 mg IV infusion yesterday on 03/02/2021. He is on Decadron 6 mg twice daily, she is on prophylactic dose of Lovenox, CTA chest showed no evidence of pulmonary embolism. Today's d-dimer is 1.16, LDH is 2590, and CRP is 4.6. Clinically patient states he is breathing easier, and she doesn't desaturate as low with repositioning, he has been positioning self in bed, and self proning, tolerating activity well, no nausea vomiting or diarrhea, and today she states she's actually feeling hungry. Today's chest x-ray also bilateral multifocal and confluent opacities consistent with COVID-19 infection stable in appearance compared to days ago. On 03/06/2021 patient seen in follow-up in the intensive care unit. He remains on high flow oxygen, per Airvo at 60 L/m, and FiO2 of 90% in addition to her percent nonrebreather mask with a pulse ox between 85-87%, he is laying on his left side, he is unable to tolerate proning. His IV fluids are infusing at 75 ML per hour, his chest x-ray today shows bilateral interstitial infiltrates that are stable in appearance. Overall seems to be in no acute distress. His labs have been reviewed showing white blood cell, 7.9, hemoglobin of 17, his sodium is 135, the rest of electrolytes were within normal limits, BUN of 29 creatinine of 0.70, AST of 41, ALT of 108, alkaline phosphatase of 109. His last d-dimer from yesterday was 2.88, and patient remains on prophylactic dose of Lovenox at 40 mg once daily, he remains on IV Decadron 6 mg daily. He is on vitamins including vitamin C, vitamin D and zinc, he is on normal saline at 75 ML per hour, his appetite has been fair, as a matter fact his been ordering takeout via [employer]. His blood pressure has been stable, his been afebrile, he is in sinus mechanism. No complaints of chest discomfort no cough. On 03/09/2021 patient seen in follow-up in intensive care unit, he is currently on Airvo at 60 L and FiO2 of 90%, in addition to 100% nonrebreather mask, his pulse ox was around 86-88%, he is very short of breath even with conversation, however in no acute distress, he has been repositioning self in bed, mostly prefers to lay on the left side, his been afebrile, hemodynamically he is stable, he is in sinus mechanism, he is receiving IV fluids at 75 ML per hour, his appetite is fair, and his family has been ordering him takeout food. Today's labs have been reviewed, his white blood cell count is 10.8, hemoglobin is 16.3, his d-dimer 3.79, stable, sodium is 134, the rest of electrolytes are within normal limits, BUN is 22 creatinine 0.64. Remains on Decadron 6 mg twice daily, he remains on Lovenox 40 mg once daily. On nausea vomiting or diarrhea, no chest discomfort, no swollen or tender calves. Patient is requesting to be transferred out of intensive care unit and he would like to go home tomorrow, which we told him that he is not anywhere close to going home yet On 03/13/2021 patient seen in follow-up on medical surgical floor, he is still on Airvo currently at 60 L and FiO2 of 90% in addition to partial rebreather mask and his pulse ox earlier on the full 100% nonrebreather and Airvo was 99% and for that reason the tab was removed from inside the mask and tone in 20 partial rebreather mask. He is still very short of breath with any activity and conversation, but essentially stable, has not gotten worse, his been afebrile. D-dimer is 2.7, his Lovenox will be adjusted, his d-dimer is improving and so are his inflammatory markers, his LDH is down to 633, and CRP is less than 0.4. Patient continues on IV Solu-Medrol 60 g every 6 hours, he is on multivitamins, and his current dose Lovenox is 45 mg subcu twice daily. No nausea vomiting or diarrhea, he is tolerating oral intake. Today's chest x-ray shows multifocal left lung opacities and a left-sided volume loss improved right lung multifocal reticulonodular opacities. On 03/14/2031 patient seen in follow-up on medical surgical floor, continues to require high flow oxygen, remains on Airvo at 60 L and FiO2 of 82% and partial nonrebreather mask 92-94%. He states he is feeling just fine, he is asking when he can go home. Denies any acute distress, his been repositioning self in bed, mostly from side to side. He has been afebrile, hemodynamically has been stable, no complaints of chest discomfort, his last chest x-ray from yesterday showed multifocal left lung opacities and left-sided volume loss that appear to be stable in appearance, and improved right lung multifocal reticulonodular opacities. Yesterday's d-dimer was trending down, and was down to 2.7 and his Lovenox dose was adjusted down to 40 mg once daily, his inflammatory markers were improving. He's been tolerating oral intake, no nausea vomiting or diarrhea. His blood cultures have shown no growth, has had no fever or chills, he remains on high-dose IV steroids 60 mg every 6 hours, IV fluids at 75 ML per hour. Is on multivitamins, and prophylactic dose Lovenox On 03/15/2021 patient seen in follow-up on medical surgical floor, patient continues to require high flow oxygen per Airvo at 60 L and FiO2 of 70%, and maintaining O2 saturations between 86-89%. Nonrebreather mask has been removed, hemodynamically stable, his breathing is stable, no worsening, does have exertional dyspnea, but no acute distress, has been afebrile. On planes of chest discomfort, no cough. Last chest x-ray from couple days ago showed multifocal left lung opacities and left-sided volume loss, with improved right lung multifocal reticulonodular opacities. Patient remains on high-dose IV Solu-Medrol 60 mg every 6 hours, remains on Lovenox 40 mg daily, today's d-dimer is 4.33. White blood cell count is 16.7, hemoglobin is 18.4, electrolytes within normal limits, BUN of 36 and creatinine 0.8. Inflammatory markers are improving, LDH is 550 and CRP is less than 0.4 On 03/16/2021 patient seen in follow-up on medical surgical floor. He still remains on Airvo however FiO2 is currently down to 65%, and the flow is currently at 60 L/m, his pulse ox is 90-94%, seems to be breathing comfortably, appears to be in no acute distress, he sleep right now, we did not wake him. His vital signs have been stable in the last 24 hours, his had no fever or chills, no new chest x-ray, no new labs. 0.9 is infusing at 75 ML per hour, he remains on Lovenox 45 mg twice daily, follow d-dimer will be ordered for adriane larkin, and patient remains on Solu-Medrol at 60 mg every 6 hours. 03/22/2021 patient seen in follow-up on medical surgical floor, he remains on irritable at 55 L/m and FiO2 of 80%, and his pulse ox is 90%, he denies any worsening dyspnea. No fever or chills, hemodynamically he has been stable, no altered mentation, he is short of breath with conversation and exertion, and he has been for the most part bedbound. Yesterday patient set up on the edge of the bed with help and he states getting up position made him cough a lot and cause some chest discomfort however he would like to continue increasing his activity because it helps his lungs and his strength. His chest x-ray has been reviewed and multifocal opacities and left-sided volume loss that appears to be stable, there was increasing right basilar airspace opacity, and mild diffuse right lung interstitial prominence. Fluids have been hep-locked, he continues on prednisone at 40 mg daily, and Lovenox was discontinued today because the platelet count had dropped to 22,000, there is no obvious signs of bleeding, today's hemoglobin is 17.9, d-dimer today is 1.11, lites were unremarkable, B1 is 36, creatinine 0.56, patient remains on prednisone 40 mg daily. Ho hemoptysis, no hematemesis, no black tarry stools Objective - Vital Signs Vital signs: Vital Signs Temp 97.9 F 03/22/21 15:31 Pulse 65 03/22/21 15:31 Resp 21 03/22/21 15:31 BP 122/79 03/22/21 15:31 Pulse Ox 90 L 03/22/21 15:31 Intake & Output 03/21/21 03/22/21 03/22/21 18:59 06:59 18:59 Output Total 400 Balance -400 Weight 95.8 kg Output: Urine 400 Stool 0 Other: Voiding Method Urinal Urinal Urinal - Exam GENERAL EXAM: Alert, , 55-year-old white male, laying on his left side in bed on medical surgical unit, on Airvo at 55 L and FiO2 of %80, with a pulse ox between 90-94% HEAD: Normocephalic/atraumatic. EYES: Normal reaction of pupils, equal size. Conjunctiva pink, sclera white. NOSE: Clear with pink turbinates. THROAT: No erythema or exudates. NECK: No masses, no JVD, no thyroid enlargement, no adenopathy. CHEST: No chest wall deformity. Symmetrical expansion. LUNGS: Equal air entry with diminished breath sounds at the bases, no crackles, no rhonchi no wheezes CVS: Regular rate and rhythm, normal S1 and S2, no gallops, no murmurs, no rubs ABDOMEN: Soft, nontender. No hepatosplenomegaly, normal bowel sounds, no guarding or rigidity. EXTREMITIES: No clubbing, no edema, no cyanosis, 2+ pulses and upper and lower extremities. MUSCULOSKELETAL: Muscle strength and tone normal. SPINE: No scoliosis or deformity SKIN: No rashes CENTRAL NERVOUS SYSTEM: Alert and oriented -3. No focal deficits, tone is normal in all 4 extremities. PSYCHIATRIC: Alert and oriented -3. Appropriate affect. Intact judgment and insight. - Labs CBC & Chem 7: 03/22/21 07:33 03/22/21 07:33 Labs: Abnormal Lab Results - Last 24 Hours (Table) 03/21/21 03/21/21 03/22/21 Range/Units 17:02 20:22 07:16 RBC (4.30-5.90) m/uL Hgb (13.0-17.5) gm/dL Hct (39.0-53.0) % Plt Count (150-450) k/uL Neutrophils # (1.3-7.7) k/uL Lymphocytes # (1.0-4.8) k/uL D-Dimer (<0.60) mg/L FEU Sodium (137-145) mmol/L BUN (9-20) mg/dL Creatinine (0.66-1.25) mg/dL Glucose (74-99) mg/dL POC Glucose (mg/dL) 451 H 338 H 100 H (75-99) mg/dL Lactate Dehydrogenase (313-618) U/L C-Reactive Protein (<1.0) mg/dL 03/22/21 03/22/21 03/22/21 Range/Units 07:33 07:33 07:33 RBC 6.02 H (4.30-5.90) m/uL Hgb 17.9 H (13.0-17.5) gm/dL Hct 54.4 H (39.0-53.0) % Plt Count 22 L D (150-450) k/uL Neutrophils # 9.0 H (1.3-7.7) k/uL Lymphocytes # 0.4 L (1.0-4.8) k/uL D-Dimer 1.11 H (<0.60) mg/L FEU Sodium 136 L (137-145) mmol/L BUN 36 H (9-20) mg/dL Creatinine 0.56 L (0.66-1.25) mg/dL Glucose 100 H (74-99) mg/dL POC Glucose (mg/dL) (75-99) mg/dL Lactate Dehydrogenase 1002 H (313-618) U/L C-Reactive Protein 26.4 H (<1.0) mg/dL 03/22/21 Range/Units 11:26 RBC (4.30-5.90) m/uL Hgb (13.0-17.5) gm/dL Hct (39.0-53.0) % Plt Count (150-450) k/uL Neutrophils # (1.3-7.7) k/uL Lymphocytes # (1.0-4.8) k/uL D-Dimer (<0.60) mg/L FEU Sodium (137-145) mmol/L BUN (9-20) mg/dL Creatinine (0.66-1.25) mg/dL Glucose (74-99) mg/dL POC Glucose (mg/dL) 122 H (75-99) mg/dL Lactate Dehydrogenase (313-618) U/L C-Reactive Protein (<1.0) mg/dL Assessment and Plan Plan: Assessment: #1. Acute COVID-19 related pneumonia with diffuse but the pulmonary infiltrates/groundglass changes. Patient started getting symptoms approximately 5 days ago and the patient was diagnosed having COVID-19 infection on 03/01/2021 and a diagnosis was established at [facility]. He is quite hypoxic and he presented with significant shortness of breath and hypoxemia the time of admission and currently is on high flow oxygen 60 L with an FiO2 of 90% and the patient is also utilizing 100% on a beta facemasks. Transferred to the intensive care unit on 03/02/2021 and received a dose of Tocilizumab on 03/02/2021. 03/22/2021 patient remains on Airvo at 55 L and FiO2 of 80% #2. Acute hypoxic respiratory failure secondary to above #3. elevated inflammatory markers secondary to COVID-19 related infection/pneumonia, and inflammatory markers are improving #4. COPD #5. acute kidney injury, resolved #6. hypertension #7. Thrombocytopenia, rule out HIT Plan: Remains on Airvo, at 55 L and FiO2 is down to 80% Lovenox Is on hold related to thrombocytopenia Will send HIT antibodies, PT/INR, PTT Continue multivitamins, continue prednisone We'll continue to closely follow I performed a history & physical examination of the patient and discussed their management with my nurse practitioner, Carola Bourgeois. I reviewed the nurse practitioner's note and agree with the documented findings and plan of care. Lung sounds are positive for diminished breath sounds. The findings and the impression was discussed with the patient. I attest to the documentation by the nurse practitioner. Time with Patient: Less than 30
--- NOTE | 2021-03-22 16:16 | P.PN ---
Subjective Progress Note Date: 03/22/21 Acute hypoxic respiratory failure secondary to COVID-19 pneumonia. on Airvo 60L fio2 90% Acute COVID-19 pneumonia with multifocal groundglass opacities with lower lung organizing consolidation. Elevated D-dimer level with no evidence of PE on CTA chest Lactic acidosis secondary to hypoxia 55-year-old male with a known history of hypertension and previous history of smoking presents to ER due to worsening shortness of breath since Saturday. Patient states that he flew from [place] about 3 days ago and since then he has been having fever exertional dyspnea and cough and shortness of breath which has been worsening since then. Patient was seen at outpatient clinic today and was diagnosed with COVID-19. Patient was found to be hypoxic and was having exertional dyspnea and sent to ER. Pulse ox was in the 70s as reported. Patient was dyspneic on on admission and was placed on 100% nonrebreather at 15 L oxygen and FiO2 90%. Her oxygen saturations went up to 88 to 90%. On admission blood pressure was 151/88 respiratory rate 30 heart rate 129 and pulse ox 88% on 15 L oxygen via nonrebreather. Chest x-ray showed interval development of interstitial perihilar and basilar infiltrates compatible with COVID-19 pneumonia. CTA chest showed no evidence of PE. Multifocal and confluent groundglass opacities with lower lung organizing consolidation bilaterally consistent with COVID-19 infection EKG showed sinus tachycardia 03/10/2021 Patient is seen and evaluated in follow-up on the regular medical floor. He is currently resting fairly comfortably in bed. Awake and alert in no acute distr ess. He is still requiring AirVo high flow oxygen at 60 L and 90% FiO2 plus a nonrebreather mask to maintain O2 saturations in the low 90s. Currently afebrile. Hemodynamically stable. Blood cultures reveal no growth. D-dimer up to 5.12. Sodium 135. Potassium 4.7. Creatinine 0.7. Glucose 200. LDH 832. C-reactive protein less than 0.4. He remains on Decadron, Lovenox, vitamin supplements. Pulmonary on board and recommending to increase Lovenox to 45 mg subcu twice a day; Decadron switched to IV Solu-Medrol 60 mg every 6 hours; continue to titrate FiO2 as able Repeat chest x-ray tomorrow morning; CODE STATUS has been changed to DO NOT RESUSCITATE/DO NOT INTUBATE per patient and family request 03/11/2021 Patient is seen in follow-up on the regular medical floor. He is currently resting in bed laying on his left side which is his preferred positioning. He is still on airflow high flow oxygen at 60 L and 90% FiO2 plus a nonrebreather mask. Not making much progress. Chest x-ray continues to show diffuse interstitial alveolar infiltrates. Stable compared to previous. D-dimer 6.68. Blood glucose 254. He remains on Lovenox 45 mg subcu twice a day. Continued on vitamin supplements. IV Solu-Medrol. His appetite is good. Working with the incentive spirometer. 03/12/2021 Patient is seen and evaluated in follow-up on the regular medical floor. He is currently resting comfortably in bed. No worsening shortness of breath, cough or congestion. Still dyspneic with exertion and conversation. He is able to be turned down on the airflow to 60 L and 85% FiO2 was then nonrebreather mask. O2 saturations in the low 90s. He remains on bronchodilators, IV Solu-Medrol, vitamin supplements. Lovenox at 45 mg subcu twice a day. Appetite is good. Continues to work well with the incentive spirometer. We will continue with current management; titrate FiO2 as able; patient has been encouraged to use incentive spirometry; inflammatory markers and follow-up chest x-ray tomorrow morning; pulmonary on board and recommending to continue current treatment. 03/13/2021 Patient remains on aivo with FiO2 of 85% and 60 L of oxygen although saturating 99% patient is feeling better bit tachycardic. 03/14/2021 Patient is seen and evaluated and follow-up continues to be on Airvo with a flow rate of 60 and an FiO2 of 82 with 91% oxygen saturation. Patient also continues to use a partial nonrebreather intermittently. Patient states he hasn't been up out of the bed much although continues to rotate from side to side on his own. Patient is tolerating diet with no reported nausea or vomiting noted. Pulmonary is following closely. Blood sugars continue to be elevated and patient is on an insulin drip at 13 mL's per hour currently. Patient also continues with IV Solu-Medrol every 6 hours along with vitamin and zinc supplements and Lovenox has been adjusted to 40 mg subcutaneous daily. Will repeat basic labs along with inflammatory markers and monitor closely. 03/15/2021 Patient is seen in follow-up continues on airvo with titrating as tolerated current flow rate is 60 and FiO2 has been decreased to 70 and maintaining 87-90% oxygen saturation. Patient continues on IV steroids every 6 hours and was on insulin drip and will transition to sliding scale along with long-acting and monitor closely. Inflammatory markers trending down although d-dimer is elevated again at 4.33 and increasing Lovenox to twice daily. White blood count 16.70 and hemoglobin is 18.4. 03/16/2021 Patient is seen in follow-up maintained on Airvo with a flow rate of 60 and an FiO2 of 60 maintaining 89-94% oxygen saturation. Last night patient was having some irritation and redness and feeling of fullness in the bladder and did have indwelling Cabrera catheter which I ordered to discontinue and patient was able to fully void and felt much better with no difficulties in urinating. Patient has been urinating in the urinal no problems today. Blood sugars are variable and off the insulin drip and will continue with sliding scale and will increase long-acting and repeat a.m. labs. 03/17/2021 Patient is seen and evaluated in follow-up continuing to wean FiO2 as tolerated. Patient continues on Airvo with current settings of a flow rate of 55 and FiO2 of 55 maintaining low 90s oxygen saturation. Patient states his breathing is slightly improved although remains dyspneic with minimal exertion and continues to a on his side to side alternating. Continues to have elevated blood sugars and attempting to avoid an insulin drip again and will continue with long-acting and will add long-acting at night as well and continue sliding scale. Patient has been educated multiple times on his choice of foods as he continues to drink pop, eat chocolate doughnuts and candy throughout the day. inclusion paraeducator has been consulted. Continue with consistent carb diet. Will repeat a.m. chest x-ray. White blood count 17.3, sodium 134 with a potassium of 4.8 and creatinine is 0.60. LDH is 1381 and pro-calcitonin is 0.15. D-dimer has gone d own to 0.82 and will titrate Lovenox to daily. 03/18/2021 Patient seen on follow-up, on Airvo 50 L a minute, marginal O2 saturations, no fever. Does get somewhat short of breath when speaking. Chest x-ray showing multifocal opacities left-sided volume loss, stable from previous. He is continued on IV Solu-Medrol 60 every 6 hours, hyperglycemic blood glucose 326. 03/19/2021 Patient seen on reevaluation, on [place] O 40 L a minute, O2 saturations are marginal. Increased respiratory rate, tachycardic, blood pressure is stable, patient is quite anxious to go home despite his high oxygen requirements, explained that his oxygen requirements would have to come down significantly until he can be discharged. His continued on IV Solu-Medrol 40 twice daily, Colin sánchez, had difficulty sleeping last night was started on Restoril. Blood sugars are running in the 200s, we will hold off on adjusting insulin as steroids have been cut down. 03/20/2021 Patient is seen and evaluated in follow-up this morning is having some right- sided rib and flank pain on continues have shortness of breath with minimal exertion. Patient is requesting aleve for pain. Kidney function stable and will add Naprosyn. Chest x-ray shows slight focal left lung opacification left- sided volume loss appears stable with persistent right basilar reticulonodular opacities and no significant change from previous x-ray. Patient has been alternating positions from side to side and feels he slept on the side wrong and that is what is causing the discomfort. D-dimer repeated today slightly elevated at 1.62 and is maintained on Lovenox. TSH was done which was normal. Blood sugars variable although a little more controlled and will continue with long-acting twice daily along with sliding scale. 03/21/2021 Patient seen this morning and weaning FI02 as tolerated. Currently remains on Airvo with a flow rate of 55 and Fi02 of 85% but not using additional oxygen with non-rebreather today and states he feels his breathing has improved. Patient continue to be dyspneic with minimal exertion. Patient denying any further right side pain on exam. Patient sugar was 80 this am and morning dose of long acting held and then continued steady rise in the 200s for lunch. Continue current medication regimen. Repeat labs and inflammatory markers with repeat chest xray in the am. 03/22/2021. Patient is seen this morning in follow-up continues to have some right right- sided discomfort that he states occurred last night but was able to sit up in the chair and felt better. Patient continues on Airvo with continued attempts at weaning FiO2 as tolerated and currently the flow rate is 55 with an FiO2 of 80. Chest x-ray today shows multifocal left lung opacities and left-sided volume loss appears stable with increasing right basilar airspace opacification with mild diffuse right lung interstitial prominence. Platelets [address] Lovenox on hold for now. D-dimer trending down. LDH slightly down at 1002 although CRP is elevated at 26.4. BMP within normal limits. Blood sugar slightly on the lower side and will decrease daily long-acting and continue with current regimen. Constitutional: Denied any fatigue denied any fever. Cardio vascular: denied any chest pain, palpitations Gastrointestinal denied any nausea vomiting Pulmonary: continued shortness of breath with exertion and position changes Neurologic denied any new focal deficits All inpatient medications were reviewed and appropriate changes in these medications as dictated in the interval history and assessment and plan. Objective - Vital Signs Vital signs: Vital Signs Temp 97.9 F 03/22/21 15:31 Pulse 65 03/22/21 15:31 Resp 21 03/22/21 15:31 BP 122/79 03/22/21 15:31 Pulse Ox 90 L 03/22/21 15:31 Intake & Output 03/21/21 03/22/21 03/22/21 18:59 06:59 18:59 Output Total 400 Balance -400 Weight 95.8 kg Output: Urine 400 Stool 0 Other: Voiding Method Urinal Urinal Urinal - Exam GENERAL: The patient is alert and oriented x3, not in any acute distress. Well developed, well nourished. HEENT: Pupils are round and equally reacting to light. EOMI. No scleral icterus. No conjunctival pallor. Normocephalic, atraumatic. No pharyngeal erythema. No thyromegaly. CARDIOVASCULAR: S1 and S2 present. No murmurs, rubs, or gallops. PULMONARY: Diminished breath sounds with scattered Bilateral rhonchi noted on exam ABDOMEN: Soft, obese, non-tender, non-distended, normoactive bowel sounds. No palpable organomegaly. MUSCULOSKELETAL: No joint swelling or deformity. Right-sided rib discomfort EXTREMITIES: No cyanosis, clubbing, or pedal edema. NEUROLOGICAL: Gross neurological examination did not reveal any focal deficits. SKIN: No rashes. - Labs CBC & Chem 7: 03/22/21 07:33 03/22/21 07:33 Labs: Abnormal Lab Results - Last 24 Hours (Table) 03/21/21 03/21/21 03/22/21 Range/Units 17:02 20:22 07:16 RBC (4.30-5.90) m/uL Hgb (13.0-17.5) gm/dL Hct (39.0-53.0) % Plt Count (150-450) k/uL Neutrophils # (1.3-7.7) k/uL Lymphocytes # (1.0-4.8) k/uL D-Dimer (<0.60) mg/L FEU Sodium (137-145) mmol/L BUN (9-20) mg/dL Creatinine (0.66-1.25) mg/dL Glucose (74-99) mg/dL POC Glucose (mg/dL) 451 H 338 H 100 H (75-99) mg/dL Lactate Dehydrogenase (313-618) U/L C-Reactive Protein (<1.0) mg/dL 03/22/21 03/22/21 03/22/21 Range/Units 07:33 07:33 07:33 RBC 6.02 H (4.30-5.90) m/uL Hgb 17.9 H (13.0-17.5) gm/dL Hct 54.4 H (39.0-53.0) % Plt Count 22 L D (150-450) k/uL Neutrophils # 9.0 H (1.3-7.7) k/uL Lymphocytes # 0.4 L (1.0-4.8) k/uL D-Dimer 1.11 H (<0.60) mg/L FEU Sodium 136 L (137-145) mmol/L BUN 36 H (9-20) mg/dL Creatinine 0.56 L (0.66-1.25) mg/dL Glucose 100 H (74-99) mg/dL POC Glucose (mg/dL) (75-99) mg/dL Lactate Dehydrogenase 1002 H (313-618) U/L C-Reactive Protein 26.4 H (<1.0) mg/dL 03/22/21 Range/Units 11:26 RBC (4.30-5.90) m/uL Hgb (13.0-17.5) gm/dL Hct (39.0-53.0) % Plt Count (150-450) k/uL Neutrophils # (1.3-7.7) k/uL Lymphocytes # (1.0-4.8) k/uL D-Dimer (<0.60) mg/L FEU Sodium (137-145) mmol/L BUN (9-20) mg/dL Creatinine (0.66-1.25) mg/dL Glucose (74-99) mg/dL POC Glucose (mg/dL) 122 H (75-99) mg/dL Lactate Dehydrogenase (313-618) U/L C-Reactive Protein (<1.0) mg/dL Assessment and Plan Assessment: Acute hypoxic respiratory failure secondary to COVID-19 pneumonia. on Airvo 55L fio2 at 85%, continues in the low 90% oxygen saturation and not requiring additional 15 L nonrebreather. Transition to oral prednisone, Lovenox, received Tocilizumab on 03/02/2021 Acute thrombocytopenia; platelets found to be 22 today and will hold Lovenox and naproxen has been discontinued. Will repeat CBC Acute COVID-19 pneumonia with multifocal groundglass opacities with lower lung organizing consolidation. Hyperglycemia secondary to steroids, continue with sliding scale and long-acting and twice daily long-acting and continue to monitor Accu-Cheks before meals and at bedtime Elevated D-dimer level with no evidence of PE on CTA chest, d-dimer trending down Lactic acidosis secondary to hypoxia improved now Leukopenia Acute kidney injury, improved Elevated inflammatory markers Hypertension DVT prophylaxis SCDs/Lovenox on hold for thrombocytopenia. Plan: Continue with current medications and continue to wean FiO2 as tolerated. Continue with inhalers and have transitioned oral prednisone. Continue with sliding scale and twice daily long-acting and will continue and continue to monitor Accu-Cheks before meals and at bedtime. Daily long-acting continues to be held for blood sugar of 100 and will decrease dose of a.m. long-acting and continue with current regimen. Patient continues to be on Airvo with a flow rate of 55 and an FiO2 of 80% pulmonary is following. Will repeat CBC and monitor platelets closely.
[2021-03-22 16:51] LABS: INR 0.9 (<1.2); Partial Thromboplastin Time 22.6 sec (22.0-30.0)
[2021-03-22 17:03] LABS: Glucose,Whole Blood 355 mg/dL (75-99)
[2021-03-22] MEDS: ALPRAZolam 0.5 MG TAB PO PRN (20:33)
[2021-03-22] MEDS: HYDROcodone/APAP 5-325MG 1 EACH TAB PO PRN (20:34)
[2021-03-22 20:36] LABS: Glucose,Whole Blood 353 mg/dL (75-99)
[2021-03-22] MEDS: amLODIPine 10 MG TAB PO SCH (20:36)
[2021-03-22] MEDS: TEMAZEPAM 15 MG CAP PO SCH (20:36)
[2021-03-22] MEDS: ALBUTEROL HFA INHALER INHALATION PRN (21:46)
[2021-03-23] MEDS: HYDROcodone/APAP 5-325MG 1 EACH TAB PO PRN ×2 (04:27→11:07)
[2021-03-23] MEDS: ALPRAZolam 0.5 MG TAB PO PRN (04:27)
[2021-03-23] MEDS: SODIUM CHLORIDE 0.9% 1,000 ML IV SCH ×2 (05:29→18:21)
[2021-03-23 06:57] LABS: Glucose,Whole Blood 199 mg/dL (75-99)
[2021-03-23 07:40] LABS: Basophils # (A) 0.1 k/uL (0-0.2); Basophils % (A) 1 %; Eosinophils # (A) 0.2 k/uL (0-0.7); Eosinophils % (A) 2 %; HCT 49.2 % (39.0-53.0); HGB 16.7 gm/dL (13.0-17.5); Lymphocytes # (A) 0.6 k/uL (1.0-4.8); Lymphocytes % (A) 6 %; MCH 31.5 pg (25.0-35.0); MCV 92.7 fL (80.0-100.0); Monocytes # (A) 0.3 k/uL (0-1.0); Monocytes % (A) 3 %; Neutrophils # (A) 7.6 k/uL (1.3-7.7); Neutrophils % (A) 87 %; RBC 5.31 m/uL (4.30-5.90); RDW 14.5 % (11.5-15.5); WBC 8.8 k/uL (3.8-10.6)
[2021-03-23 07:49] LABS: Platelet Count 43 k/uL (150-450)
[2021-03-23] MEDS: FAMOTIDINE 20 MG TAB PO SCH ×2 (08:31→21:48)
[2021-03-23] MEDS: CHOLECALCIFEROL 25 MCG (1000 IU) TABLET PO SCH (08:32)
[2021-03-23] MEDS: INSULIN DETEMIR (LEVEMIR) 100 UNIT/ML SYR SQ SCH ×2 (08:33→21:41)
[2021-03-23] MEDS: ASCORBIC ACID 500 MG TAB PO SCH (08:33)
[2021-03-23] MEDS: ZINC SULFATE 220 MG CAP PO SCH (08:33)
[2021-03-23] MEDS: predniSONE 20 MG TAB PO SCH (08:33)
[2021-03-23] MEDS: INSULIN ASPART (NovoLOG) 100 UNIT/ML VIAL SQ SCH ×4 (08:34→21:41)
[2021-03-23] MEDS: ALPRAZolam 0.5 MG TAB PO SCH ×3 (11:07→21:48)
[2021-03-23 11:26] LABS: Glucose,Whole Blood 149 mg/dL (75-99)
[2021-03-23] MEDS ORDERED: MORPHINE SULFATE 2 MG/ML SYRINGE IVP PRN (12:15)
[2021-03-23] MEDS ORDERED: ADENOSINE 3 MG/ML 2 ML VIAL IVP STA (12:39)
[2021-03-23] MEDS ORDERED: LIDOCAINE 1% INJ 10MG/ML (20 ML MDV) SQ ONE (12:56)
--- NOTE | 2021-03-23 12:57 | P.PN ---
Subjective Progress Note Date: 03/23/21 55-year-old male patient, diagnosed having COVID-19 infection 03/23/2021, the patient is being seen for a follow-up. Earlier this morning, the patient was on high flow oxygen with 55 L with an FiO2 of 81%. Subsequently, he became progressively more dyspneic and hypoxic and the patient also developed right-sided chest pain. At that point, he was placed on 100% nonrebreather facemask in addition to his high flow oxygen. His current pulse ox is at 85%. His high flow oxygen is running at extremity liters with an FiO2 of 90%. A chest x-ray was done and showed development of a large right-sided pneumothorax. The patient has also ongoing diffuse pulmonary infiltration involving the left lung. He is currently short of breath. The Neck. Tachycardic. Heart rate is around 147, sinus. He is afebrile. He remains on prednisone orally 40 mg by mouth daily. There is COVID-19 related pneumoni a/ARDS. The patient will be transferred to the intensive care unit. I will put a Thoravent for him. His platelet count is improving is currently up to 43. HIV antibodies have been sent and results are still pending. LDH from yesterday was 1002 with a CRP level of 26.4. His inflammatory markers remain elevated although they're not as high as earlier values in regards to his LVH. He is awake. He is conscious. His communicating. He is a bit tachypneic and his current respiratory rate in the mid 30s. IV fluids are running at the rate of 75 mL an hour of normal saline. Remains on multivitamins. Remains on restoril for sleep. He remains on Levemir insulin 40 units daily a.m. and 25 units in p.m. along with a sliding scale coverage. Afebrile. No signs of any fluid overload. Objective - Vital Signs Vital signs: Vital Signs Temp 98.4 F 03/23/21 10:00 Pulse 162 H 03/23/21 11:01 Resp 29 H 03/23/21 11:01 BP 149/102 03/23/21 11:01 Pulse Ox 80 L 03/23/21 11:01 Intake & Output 03/22/21 03/23/21 03/23/21 18:59 06:59 18:59 Output Total 750 Balance -750 Output: Urine 750 Stool 0 Other: Voiding Method Urinal Urinal # Voids 2 - Exam GENERAL EXAM: Alert, pleasant 55-year-old gentleman, on AirVo high flow oxygen at 60 L and 90% FiO2, fairly comfortable in no apparent distress. He is back on 100% nonrebreather facemask HEAD: Normocephalic. EYES: Normal reaction of pupils, equal size. NOSE: Clear with pink turbinates. THROAT: No erythema or exudates. NECK: No masses, no JVD. CHEST: No chest wall deformity. LUNGS: Equal air entry with coarse crackles in the bilateral posterior bases. Breath sounds are diminished on the right compared to the left CVS: S1 and S2 normal with no audible murmur, regular rhythm. The patient is quite tachycardic, sinus with a heart rate in the 140s ABDOMEN: No hepatosplenomegaly, normal bowel sounds, no guarding or rigidity. SPINE: No scoliosis or deformity SKIN: No rashes CENTRAL NERVOUS SYSTEM: No focal deficits, tone is normal in all 4 extremities. EXTREMITIES: There is no peripheral edema. No clubbing, no cyanosis. Peripheral pulses are intact. - Labs CBC & Chem 7: 03/23/21 07:27 03/22/21 07:33 Labs: Abnormal Lab Results - Last 24 Hours (Table) 03/22/21 03/22/21 03/23/21 Range/Units 17:03 20:34 06:56 Plt Count (150-450) k/uL Lymphocytes # (1.0-4.8) k/uL POC Glucose (mg/dL) 355 H 353 H 199 H (75-99) mg/dL 03/23/21 03/23/21 Range/Units 07:27 11:25 Plt Count 43 L D (150-450) k/uL Lymphocytes # 0.6 L (1.0-4.8) k/uL POC Glucose (mg/dL) 149 H (75-99) mg/dL Assessment and Plan Plan: 1 Acute COVID-19 related pneumonia with diffuse bilateral pulmonary infiltrates/groundglass changes. Patient started getting symptoms approximately 5 days prior to and was diagnosed having COVID-19 infection on 03/01/2021 and a diagnosis was established at [facility]. He remains hypoxic and currently is on AirVo high flow oxygen 55 L with an FiO2 of 85%. Received Tocilizumab on 03/02/2021. Fortunately, the patient's recovery has been extremely slow. The patient has COVID-19 related pneumonia with diffuse bilateral pulmonary infiltrates and the patient has limited recovery and he is still requiring high flow oxygen. He remains on prednisone 40 mg by mouth daily. His most recent LDH from 03/17/2021 was still elevated. Repeat implementing markers was still showing elevated LDH although slightly improved at 1002. Nevertheless, this morning, the patient developed acute decompensation worsening shortness of breath and hypoxemia. Currently is on high flow oxygen 60 L with an FiO2 of 90% along with 100% nonrebreather facemask his current pulse ox is around 87%. Chest x-ray showing a new onset right-sided pneumothorax. 2 Acute hypoxic respiratory failure secondary to above 3 Elevated inflammatory markers secondary to COVID-19 related infection/pneumonia 4 COPD 5 Acute kidney injury, recovered, 6 Hypertension 7 diabetes mellitus with steroid-induced hyperglycemia currently on Levemir insulin 8 thrombocytopenia with stable platelet count of 42. Awaiting hit antibodies. Currently the patient is off Lovenox.\ Plan: IV fluids with 75 mL of normal saline Transfer the patient back to the intensive care unit Was inserted Thoravent and possibly a chest tube if incomplete reexpansion of the right lung Monitor the platelet count Awaiting hit antibody results Encourage use of incentive spirometer Continue prednisone 40 mg by mouth daily Continue Lovenox 40 mg subcu daily Restoril 15 mg at bedtime We will continue to follow her condition is critical at this point in time.
--- NOTE | 2021-03-23 13:02 | P.CRDCN ---
History of Present Illness History of present illness: Patient is a 55-year-old male with past medical history of hypertension and former smoker who presents to emergency department on 03/01/2021 due to worsening shortness of breath since 02/25/2021. Patient states that he was traveling from [place] and since then he has been having fever exertional dyspnea and cough and shortness of breath which has been worsening since then. Patient was seen at outpatient clinic and was diagnosed with COVID-19. Patient was found to be hypoxic and was having exertional dyspnea and sent to ER. He does not follow with a valve repairer. He denies history of [place], stroke, coronary artery disease, dyslipidemia. He denies any family history of cardiac disease. We are being consulted for tachycardia. Patient seen and examined at bedside, He is short of breath. Has significant Right sided chest pain. He is on a non-rebreather mask at 100% and Airvo. pulse ox is 80%, BP 149/102. He is tachypneic in 30s. EKG reveals supraventricular tachycardia HR 160s. Patient is not on telemetry. He is currently being maintained on amlodipine 10 mg daily, IV fluids, Lovenox subcu, Levemir Insulin. He is currently afebrile. Patient has significant right sided pain. Patient is alert and oriented x3. REVIEW OF SYSTEMS At the time of my exam: CONSTITUTIONAL: + fever + chills. CARDIOVASCULAR: Denies chest pain, shortness of breath, orthopnea, PND or palpitations. RESPIRATORY: +cough, +shortness of breath. GASTROINTESTINAL: Denies abdominal pain, diarrhea, constipation, nausea or vomiting. MUSCULOSKELETAL: Denies myalgias. NEUROLOGIC: Denies numbness, tingling, headacbe or weakness. ENDOCRINE: +Fatigue. Denies weight change, polydipsia or polyurina. GENITOURINARY: Denies burning, hematuria or urgency with micturation. HEMATOLOGIC: Denies history of anemia or bleeding. PHYSICAL EXAMINATION Blood pressure 149/102 heart rate 162 afebrile . CONSTITUTIONAL: No apparent distress. HEENT: Head is normocephalic. Pupils are equal, round. Sclerae anicteric. Mucous membranes of the mouth are moist. No JVD. No carotid bruit. CHEST EXAMINATION: Lungs crackles bilaterally. Right sided chest wall tenderness. HEART EXAMINATION: Regular Tachycardic rate and rhythm. S1, S2 heard. No murmurs, gallops or rub. ABDOMEN: Soft, nontender. Positive bowel sounds. EXTREMITIES: 2+ peripheral pulses, no lower extremity edema and no calf tenderness. NEUROLOGIC EXAMINATION: Patient is awake, alert and oriented x3. ASSESSMENT Supraventricular Tachycardia Acute COVID-19 related pneumonia Acute hypoxic respiratory failure Right Sided Pneumothorax Hypertension PLAN EKG completed and reviewed with Dr. Martinez, patient in SVT Recommend IV Adenosine, however, 4S unable to give an IV cardiac medications on the floor. Recommend RN call A team and have patient transferred to ICU Stat Chest Xray completed showed large right-sided pneumothorax Pulmonary following patient, plan to place chest tube in ICU Further recommendations to follow. Nurse Practitioner note has been reviewed, I agree with a documented findings and plan of care. Patient was seen and examined. Past Medical History Past Medical History: COPD, Hypertension History of Any Multi-Drug Resistant Organisms: None Reported Past Surgical History: Orthopedic Surgery Past Psychological History: No Psychological Hx Reported Smoking Status: Former smoker Past Alcohol Use History: None Reported Past Drug Use History: None Reported Medications and Allergies Home Medications Medication Instructions Recorded Confirmed Type amLODIPine [Norvasc] 10 mg PO HS 03/01/21 03/01/21 History lisinopriL [Zestril] 5 mg PO HS 03/01/21 03/01/21 History Allergies Allergy/AdvReac Type Severity Reaction Status Date / Time No Known Allergies Allergy Verified 03/01/21 15:07 Physical Exam Vitals: Vital Signs Temp Pulse Resp BP Pulse Ox 03/23/21 11:01 162 H 29 H 149/102 80 L 03/23/21 10:00 98.4 F 135 H 25 H 128/89 82 L 03/23/21 05:29 98.3 F 120 H 18 118/84 86 L 03/23/21 04:10 90 L 03/23/21 01:45 98.3 F 120 H 21 122/83 87 L 03/23/21 01:20 91 L 03/22/21 21:48 98.4 F 127 H 22 126/82 87 L 03/22/21 21:47 89 L 03/22/21 20:00 104 H 22 03/22/21 18:00 97.3 F L 128 H 17 130/91 87 L 03/22/21 16:30 88 L 03/22/21 15:31 97.9 F 65 21 122/79 90 L Intake and Output 03/22/21 03/23/21 03/23/21 22:59 06:59 14:59 Output Total 500 250 Balance -500 -250 Output: Urine 500 250 Stool 0 Other: Voiding Method Urinal # Voids 2 Results 03/23/21 07:27 03/22/21 07:33 Coagulation 03/22/21 Range/Units 16:01 PT 10.0 (9.0-12.0) sec APTT 22.6 (22.0-30.0) sec CBC 03/23/21 Range/Units 07:27 WBC 8.8 (3.8-10.6) k/uL RBC 5.31 (4.30-5.90) m/uL Hgb 16.7 (13.0-17.5) gm/dL Hct 49.2 (39.0-53.0) % Plt Count 43 L D (150-450) k/uL Current Medications Generic Name Dose Route Start Last Admin Trade Name Freq PRN Reason Stop Dose Admin Acetaminophen 650 mg 03/01/21 17:27 03/20/21 22:03 Acetaminophen Tab 325 Mg Tab PO 650 mg Q4HR PRN Administration Fever>101 Hydrocodone Bitart/Acetaminophen 1 each 03/22/21 12:51 03/23/21 11:07 Hydrocodone/Apap 5-325mg 1 Each Tab PO 1 each Q6HR PRN Administration Pain Albuterol Sulfate 2 puff 03/01/21 17:27 03/22/21 21:46 Albuterol Hfa Inhaler INHALATION 2 puff RT-Q6H PRN Administration Shortness Of Breath Or Wheezing Alprazolam 0.5 mg 03/23/21 13:00 03/23/21 11:07 Alprazolam 0.5 Mg Tab PO 0.5 mg QID ELENA Administration Amlodipine Besylate 10 mg 03/01/21 21:00 03/22/21 20:36 Amlodipine 10 Mg Tab PO 10 mg HS ELENA Administration Ascorbic Acid 1,000 mg 03/02/21 09:00 03/23/21 08:33 Ascorbic Acid 500 Mg Tab PO 1,000 mg DAILY ELENA Administration Cholecalciferol 125 mcg 03/02/21 09:00 03/23/21 08:32 Cholecalciferol 25 Mcg (1000 Iu) Tablet PO 125 mcg DAILY ELENA Administration Famotidine 10 mg 03/01/21 21:00 03/23/21 08:31 Famotidine 20 Mg Tab PO 10 mg BID ELENA Administration Fluticasone Propionate 2 spray 03/02/21 14:46 03/02/21 17:24 Fluticasone 50mcg/[place] Nasal 16gm EA NOSTRIL 2 spray DAILY PRN Administration Allergy Symptoms Sodium Chloride 1,000 mls @ 75 mls/hr 03/02/21 16:45 03/23/21 05:29 Saline 0.9% IV Not Given .[id number] ELENA Insulin Aspart 0 unit 03/15/21 17:30 03/23/21 08:34 Insulin Aspart (Novolog) 100 Unit/Ml Vial SQ 3 unit ACHS ELENA Administration Protocol Insulin Detemir 25 unit 03/17/21 21:00 03/22/21 20:36 Insulin Detemir (Levemir) 100 Unit/Ml Syr SQ 25 unit HS ELENA Administration Insulin Detemir 20 unit 03/23/21 07:00 03/23/21 08:33 Insulin Detemir (Levemir) 100 Unit/Ml Syr SQ 20 unit DAILY@0700 ELENA Administration Naloxone HCl 0.2 mg 03/01/21 17:28 Naloxone 0.4 Mg/Ml 1 Ml Vial IV Q2M PRN Opioid Reversal Prednisone 40 mg 03/20/21 10:15 03/23/21 08:33 Prednisone 20 Mg Tab PO 40 mg DAILY ELENA Administration Temazepam 15 mg 03/20/21 21:00 03/22/21 20:36 Temazepam 15 Mg Cap PO 15 mg HS ELENA Administration Zinc Sulfate 220 mg 03/02/21 09:00 03/23/21 08:33 Zinc Sulfate 220 Mg Cap PO 220 mg DAILY ELENA Administration Intake and Output 03/22/21 03/23/21 03/23/21 22:59 06:59 14:59 Output Total 500 250 Balance -500 -250 Output: Urine 500 250 Stool 0 Other: Voiding Method Urinal # Voids 2 03/23/21 07:27 03/22/21 07:33
--- NOTE | 2021-03-23 13:06 | XR ---
EXAMINATION TYPE: XR chest 1V portable DATE OF EXAM: 03/23/2021 COMPARISON: 03/22/2021 HISTORY: Right chest pain TECHNIQUE: Single frontal view of the chest is obtained. FINDINGS: There is a large 3 cm right pneumothorax. There is diffuse airspace opacities throughout t lungs are again visualized, left greater than right with mild mediastinal shift. Probable small le ft pleural effusion. Heart size appears stable. IMPRESSION: 1. There has been collapse of the right lung with a large 3 cm right pneumothorax. 2. Diffuse airspace opacities throughout the lungs are again visualized. Probable small left pleural effusion. Findings were discussed with the patient's nurse [facility] who stated patient was being transferred to [facility] ICU at time of dictation at 1:00 PM on 03/23/2021.
[2021-03-23 13:28] LABS: Basophils # (A) 0.1 k/uL (0-0.2); Basophils % (A) 1 %; Eosinophils # (A) 0.1 k/uL (0-0.7); Eosinophils % (A) 1 %; HCT 53.1 % (39.0-53.0); HGB 17.9 gm/dL (13.0-17.5); Lymphocytes # (A) 0.3 k/uL (1.0-4.8); Lymphocytes % (A) 3 %; MCH 30.9 pg (25.0-35.0); MCHC 33.7 g/dL (31.0-37.0); MCV 91.6 fL (80.0-100.0); Mean Platelet Volume 9.3; Monocytes # (A) 0.5 k/uL (0-1.0); Monocytes % (A) 5 %; Neutrophils # (A) 7.6 k/uL (1.3-7.7); Neutrophils % (A) 89 %; RBC 5.79 m/uL (4.30-5.90); RDW 14.5 % (11.5-15.5); WBC 8.6 k/uL (3.8-10.6)
[2021-03-23 13:30] LABS: Glucose,Whole Blood 143 mg/dL (75-99)
[2021-03-23 13:42] LABS: African American GFR (CKD) >90 (>60 ml/min/1.73 sqM); Anion Gap 9 mmol/L; Blood Urea Nitrogen 30 mg/dL (9-20); Calcium 8.7 mg/dL (8.4-10.2); Carbon Dioxide 24 mmol/L (22-30); Chloride 103 mmol/L (98-107); Glucose 152 mg/dL (74-99); LDH 1029 U/L (313-618); Non-African American GFR(CKD) >90 (>60 ml/min/1.73 sqM); Potassium 4.5 mmol/L (3.5-5.1); Sodium 136 mmol/L (137-145)
[2021-03-23 13:45] LABS: Platelet Count 36 k/uL (150-450)
[2021-03-23 13:56] LABS: C Reactive Protein 25.2 mg/dL (<1.0)
--- NOTE | 2021-03-23 13:56 | P.PN ---
Subjective Progress Note Date: 03/23/21 Acute hypoxic respiratory failure secondary to COVID-19 pneumonia. on Airvo 60L fio2 90% Acute COVID-19 pneumonia with multifocal groundglass opacities with lower lung organizing consolidation. Elevated D-dimer level with no evidence of PE on CTA chest Lactic acidosis secondary to hypoxia 55-year-old male with a known history of hypertension and previous history of smoking presents to ER due to worsening shortness of breath since Saturday. Patient states that he flew from [place] about 3 days ago and since then he has been having fever exertional dyspnea and cough and shortness of breath which has been worsening since then. Patient was seen at outpatient clinic today and was diagnosed with COVID-19. Patient was found to be hypoxic and was having exertional dyspnea and sent to ER. Pulse ox was in the 70s as reported. Patient was dyspneic on on admission and was placed on 100% nonrebreather at 15 L oxygen and FiO2 90%. Her oxygen saturations went up to 88 to 90%. On admission blood pressure was 151/88 respiratory rate 30 heart rate 129 and pulse ox 88% on 15 L oxygen via nonrebreather. Chest x-ray showed interval development of interstitial perihilar and basilar infiltrates compatible with COVID-19 pneumonia. CTA chest showed no evidence of PE. Multifocal and confluent groundglass opacities with lower lung organizing consolidation bilaterally consistent with COVID-19 infection EKG showed sinus tachycardia 03/10/2021 Patient is seen and evaluated in follow-up on the regular medical floor. He is currently resting fairly comfortably in bed. Awake and alert in no acute distr ess. He is still requiring AirVo high flow oxygen at 60 L and 90% FiO2 plus a nonrebreather mask to maintain O2 saturations in the low 90s. Currently afebrile. Hemodynamically stable. Blood cultures reveal no growth. D-dimer up to 5.12. Sodium 135. Potassium 4.7. Creatinine 0.7. Glucose 200. LDH 832. C-reactive protein less than 0.4. He remains on Decadron, Lovenox, vitamin supplements. Pulmonary on board and recommending to increase Lovenox to 45 mg subcu twice a day; Decadron switched to IV Solu-Medrol 60 mg every 6 hours; continue to titrate FiO2 as able Repeat chest x-ray tomorrow morning; CODE STATUS has been changed to DO NOT RESUSCITATE/DO NOT INTUBATE per patient and family request 03/11/2021 Patient is seen in follow-up on the regular medical floor. He is currently resting in bed laying on his left side which is his preferred positioning. He is still on airflow high flow oxygen at 60 L and 90% FiO2 plus a nonrebreather mask. Not making much progress. Chest x-ray continues to show diffuse interstitial alveolar infiltrates. Stable compared to previous. D-dimer 6.68. Blood glucose 254. He remains on Lovenox 45 mg subcu twice a day. Continued on vitamin supplements. IV Solu-Medrol. His appetite is good. Working with the incentive spirometer. 03/12/2021 Patient is seen and evaluated in follow-up on the regular medical floor. He is currently resting comfortably in bed. No worsening shortness of breath, cough or congestion. Still dyspneic with exertion and conversation. He is able to be turned down on the airflow to 60 L and 85% FiO2 was then nonrebreather mask. O2 saturations in the low 90s. He remains on bronchodilators, IV Solu-Medrol, vitamin supplements. Lovenox at 45 mg subcu twice a day. Appetite is good. Continues to work well with the incentive spirometer. We will continue with current management; titrate FiO2 as able; patient has been encouraged to use incentive spirometry; inflammatory markers and follow-up chest x-ray tomorrow morning; pulmonary on board and recommending to continue current treatment. 03/13/2021 Patient remains on aivo with FiO2 of 85% and 60 L of oxygen although saturating 99% patient is feeling better bit tachycardic. 03/14/2021 Patient is seen and evaluated and follow-up continues to be on Airvo with a flow rate of 60 and an FiO2 of 82 with 91% oxygen saturation. Patient also continues to use a partial nonrebreather intermittently. Patient states he hasn't been up out of the bed much although continues to rotate from side to side on his own. Patient is tolerating diet with no reported nausea or vomiting noted. Pulmonary is following closely. Blood sugars continue to be elevated and patient is on an insulin drip at 13 mL's per hour currently. Patient also continues with IV Solu-Medrol every 6 hours along with vitamin and zinc supplements and Lovenox has been adjusted to 40 mg subcutaneous daily. Will repeat basic labs along with inflammatory markers and monitor closely. 03/15/2021 Patient is seen in follow-up continues on airvo with titrating as tolerated current flow rate is 60 and FiO2 has been decreased to 70 and maintaining 87-90% oxygen saturation. Patient continues on IV steroids every 6 hours and was on insulin drip and will transition to sliding scale along with long-acting and monitor closely. Inflammatory markers trending down although d-dimer is elevated again at 4.33 and increasing Lovenox to twice daily. White blood count 16.70 and hemoglobin is 18.4. 03/16/2021 Patient is seen in follow-up maintained on Airvo with a flow rate of 60 and an FiO2 of 60 maintaining 89-94% oxygen saturation. Last night patient was having some irritation and redness and feeling of fullness in the bladder and did have indwelling Cabrera catheter which I ordered to discontinue and patient was able to fully void and felt much better with no difficulties in urinating. Patient has been urinating in the urinal no problems today. Blood sugars are variable and off the insulin drip and will continue with sliding scale and will increase long-acting and repeat a.m. labs. 03/17/2021 Patient is seen and evaluated in follow-up continuing to wean FiO2 as tolerated. Patient continues on Airvo with current settings of a flow rate of 55 and FiO2 of 55 maintaining low 90s oxygen saturation. Patient states his breathing is slightly improved although remains dyspneic with minimal exertion and continues to a on his side to side alternating. Continues to have elevated blood sugars and attempting to avoid an insulin drip again and will continue with long-acting and will add long-acting at night as well and continue sliding scale. Patient has been educated multiple times on his choice of foods as he continues to drink pop, eat chocolate doughnuts and candy throughout the day. adaptive physical educator has been consulted. Continue with consistent carb diet. Will repeat a.m. chest x-ray. White blood count 17.3, sodium 134 with a potassium of 4.8 and creatinine is 0.60. LDH is 1381 and pro-calcitonin is 0.15. D-dimer has gone d own to 0.82 and will titrate Lovenox to daily. 03/18/2021 Patient seen on follow-up, on Airvo 50 L a minute, marginal O2 saturations, no fever. Does get somewhat short of breath when speaking. Chest x-ray showing multifocal opacities left-sided volume loss, stable from previous. He is continued on IV Solu-Medrol 60 every 6 hours, hyperglycemic blood glucose 326. 03/19/2021 Patient seen on reevaluation, on [place] O 40 L a minute, O2 saturations are marginal. Increased respiratory rate, tachycardic, blood pressure is stable, patient is quite anxious to go home despite his high oxygen requirements, explained that his oxygen requirements would have to come down significantly until he can be discharged. His continued on IV Solu-Medrol 40 twice daily, Colin sánchez, had difficulty sleeping last night was started on Restoril. Blood sugars are running in the 200s, we will hold off on adjusting insulin as steroids have been cut down. 03/20/2021 Patient is seen and evaluated in follow-up this morning is having some right- sided rib and flank pain on continues have shortness of breath with minimal exertion. Patient is requesting aleve for pain. Kidney function stable and will add Naprosyn. Chest x-ray shows slight focal left lung opacification left- sided volume loss appears stable with persistent right basilar reticulonodular opacities and no significant change from previous x-ray. Patient has been alternating positions from side to side and feels he slept on the side wrong and that is what is causing the discomfort. D-dimer repeated today slightly elevated at 1.62 and is maintained on Lovenox. TSH was done which was normal. Blood sugars variable although a little more controlled and will continue with long-acting twice daily along with sliding scale. 03/21/2021 Patient seen this morning and weaning FI02 as tolerated. Currently remains on Airvo with a flow rate of 55 and Fi02 of 85% but not using additional oxygen with non-rebreather today and states he feels his breathing has improved. Patient continue to be dyspneic with minimal exertion. Patient denying any further right side pain on exam. Patient sugar was 80 this am and morning dose of long acting held and then continued steady rise in the 200s for lunch. Continue current medication regimen. Repeat labs and inflammatory markers with repeat chest xray in the am. 03/22/2021. Patient is seen this morning in follow-up continues to have some right right- sided discomfort that he states occurred last night but was able to sit up in the chair and felt better. Patient continues on Airvo with continued attempts at weaning FiO2 as tolerated and currently the flow rate is 55 with an FiO2 of 80. Chest x-ray today shows multifocal left lung opacities and left-sided volume loss appears stable with increasing right basilar airspace opacification with mild diffuse right lung interstitial prominence. Platelets [address] Lovenox on hold for now. D-dimer trending down. LDH slightly down at 1002 although CRP is elevated at 26.4. BMP within normal limits. Blood sugar slightly on the lower side and will decrease daily long-acting and continue with current regimen. 03/23/2021 Issue is seen and evaluated this morning and follow-up currently sitting up in the chair and continues on Airvo with settings of 55 and an FiO2 of 80 along with 15 L nonrebreather stating he is having continuing right-sided chest discomfort and inability to catch his breath. Chest x-ray was done showing a pneumothorax on the right approximately 3 cm. Patient was also noted to have elevated heart rate in the 130s to 160s and cardiology was consulted emergently. Pulmonary also following and was rounding and will be taking the patient to the ICU and will be placing a chest tube and will continue in the ICU for close monitoring. CODE STATUS was discussed with pulmonary and patient changed his status to full code. Constitutional: Denied any fatigue denied any fever. Cardio vascular: Reported right side chest pain, and palpitations Gastrointestinal denied any nausea vomiting Pulmonary: Reports increased shortness of breath inability to catch his breath Neurologic denied any new focal deficits, diffuse weak All inpatient medications were reviewed and appropriate changes in these medications as dictated in the interval history and assessment and plan. Objective - Vital Signs Vital signs: Vital Signs Temp 98.4 F 03/23/21 10:00 Pulse 162 H 03/23/21 11:01 Resp 29 H 03/23/21 11:01 BP 149/102 03/23/21 11:01 Pulse Ox 80 L 03/23/21 11:01 Intake & Output 03/22/21 03/23/21 03/23/21 18:59 06:59 18:59 Output Total 750 0 Balance -750 0 Output: Urine 750 Stool 0 0 Other: Voiding Method Urinal Urinal Urinal # Voids 2 - Exam GENERAL: The patient is alert and oriented x3, currently in respiratory distress unable to catch his breath on high flow along with nonrebreather and extremely anxious. Well developed, well nourished. HEENT: Pupils are round and equally reacting to light. EOMI. No scleral icterus. No conjunctival pallor. Normocephalic, atraumatic. No pharyngeal erythema. No thyromegaly. CARDIOVASCULAR: S1 and S2 present. No murmurs, rubs, or gallops. PULMONARY: Diminished breath sounds more so on the right than the left with some coarse rhonchi noted throughout the left ABDOMEN: Soft, obese, non-tender, non-distended, normoactive bowel sounds. No palpable organomegaly. MUSCULOSKELETAL: No joint swelling or deformity. Right-sided discomfort EXTREMITIES: No cyanosis, clubbing, or pedal edema. NEUROLOGICAL: Gross neurological examination did not reveal any focal deficits. Diffusely weak SKIN: No rashes. - Labs CBC & Chem 7: 03/23/21 13:09 03/22/21 07:33 Labs: Abnormal Lab Results - Last 24 Hours (Table) 03/22/21 03/22/21 03/23/21 Range/Units 17:03 20:34 06:56 Hgb (13.0-17.5) gm/dL Hct (39.0-53.0) % Plt Count (150-450) k/uL Lymphocytes # (1.0-4.8) k/uL POC Glucose (mg/dL) 355 H 353 H 199 H (75-99) mg/dL 03/23/21 03/23/21 03/23/21 Range/Units 07:27 11:25 13:09 Hgb 17.9 H (13.0-17.5) gm/dL Hct 53.1 H (39.0-53.0) % Plt Count 43 L D 36 L (150-450) k/uL Lymphocytes # 0.6 L 0.3 L (1.0-4.8) k/uL POC Glucose (mg/dL) 149 H (75-99) mg/dL 03/23/21 Range/Units 13:29 Hgb (13.0-17.5) gm/dL Hct (39.0-53.0) % Plt Count (150-450) k/uL Lymphocytes # (1.0-4.8) k/uL POC Glucose (mg/dL) 143 H (75-99) mg/dL Assessment and Plan Assessment: Acute hypoxic respiratory failure secondary to COVID-19 pneumonia. on Airvo 55L fio2 at 80% along with 15 L nonrebreather with low oxygen saturations in the 80s, stat chest x-ray ordered showing a collapse in the right lung with a large 3 cm right pneumothorax with diffuse airspace opacification is in his probable small left pleural effusion Right sided pneumothorax as noted on chest x-ray; pulmonary following and patient will be transferred to the ICU and have chest tube placement Acute thrombocytopenia; platelets improving slightly at 43 currently holding anticoagulant due to the low platelets Acute COVID-19 pneumonia with multifocal groundglass opacities with lower lung organizing consolidation. Hyperglycemia secondary to steroids, continue with sliding scale and long-acting and twice daily long-acting and continue to monitor Accu-Cheks before meals and at bedtime Elevated D-dimer level with no evidence of PE on CTA chest, d-dimer trending down Lactic acidosis secondary to hypoxia improved now Leukopenia Acute kidney injury, improved Elevated inflammatory markers Hypertension DVT prophylaxis SCDs/Lovenox on hold for thrombocytopenia. Plan: Continue with current medications and continue to wean FiO2 as tolerated. Patient being transferred to the ICU for close monitoring and chest tube placement status post increasing shortness of breath and right-sided chest pain with a chest x-ray done showing right-sided pneumothorax. Patient had an episode of elevated heart rate in the 130s and 160s and cardiology was consulted stat. Elevated heart rate most likely secondary to the pneumothorax. Continue with inhalers and have transitioned oral prednisone. Continue with sliding scale and twice daily long-acting and will continue and continue to monitor Accu-Cheks before meals and at bedtime. Daily long-acting continues to be held for blood sugar of 100 and will decrease dose of a.m. long-acting and continue with current regimen. Patient continues to be on Airvo with a flow rate of 55 and an FiO2 of 80% pulmonary is following. Will repeat a.m. labs and continue to monitor closely. Prognosis is guarded. Time with Patient: Greater than 30
--- NOTE | 2021-03-23 14:36 | XR ---
EXAMINATION TYPE: XR chest 1V portable DATE OF EXAM: 03/23/2021 COMPARISON: 03/23/2021 12:33 PM HISTORY: Right pneumothorax, Covid TECHNIQUE: Single frontal view of the chest is obtained. FINDINGS: Heart size is within normal limits. The previously seen right pneumothorax has significantl y decreased in size with small residual pneumothorax remaining. There is now a right-sided chest tube . There is a tiny residual component measuring 7 mm, previously 3 cm. Diffuse patchy airspace opaciti es are seen throughout the lungs, relatively stable when considering differences in technique. Small right pleural effusion. The left pleural effusion. No left pneumothorax. IMPRESSION: 1. Significant decrease in size of right pneumothorax with right-sided chest tube now seen. Small res idual pneumothorax remains. 2. Diffuse patchy airspace opacities are seen throughout the lungs. Small right pleural effusion.
--- NOTE | 2021-03-23 14:59 | P.PCN ---
Date of Procedure: 03/23/21 Preoperative Diagnosis: pneumothorax, right-sided Postoperative Diagnosis: pneumothorax, right-sided Procedure(s) Performed: Thoravent catheter insertion Anesthesia: local Surgeon: Lin Pruitt Pathology: other Condition: critical Disposition: ICU Operative Findings: A time-out was completed verifying correct patient, procedure, site, positioning, and special equipment if applicable. The patient was positioned appropriately fin a supine body position The patient' s right chest was prepped and draped in sterile fashion. 1% Lidocaine was used to anesthetize the surrounding skin area. A 2 cm skin incision was made in the third intercostal space, anterior chest, lateral to the sternum. Utilizing a fluoroscopy vent catheter, 13-Tai[place]ese, over trocar, the tube was easily passed just adjacent to the superior rib. The pleural space was entered bluntly and gush of air was observed. A finger was inserted into the pleural space to check for anatomy and guide tube insertion. The thoravent catheter was securely to the skin and a sterile dressing applied. A pleurevac was attached to the chest tube and a chest x-ray obtained. I personally performed this procedure and I was was present for the entire procedure. Estimated Blood Loss: 0 The patient tolerated the procedure well and there were no complications. the chest x-ray showed expansion of the right lung without evidence of any complication. There was obvious diminution of the right-sided pneumothorax.there is positive air leak within the Pleur-evac.
--- NOTE | 2021-03-23 16:31 | XR ---
EXAMINATION TYPE: XR chest 1V portable DATE OF EXAM: 03/23/2021 CLINICAL HISTORY: Central line placement. TECHNIQUE: Single AP portable sitting upright view of the chest is obtained. COMPARISON: Chest x-ray from earlier today FINDINGS: New Right internal jugular central venous catheter extends into the right brachial and axi llary artery and needs to be repositioned. Persistent bilateral right-sided chest tube with lateral tiny right pneumothorax. Persistent low lung volumes with multifocal and confluent reticulonodular opacities bilaterally. Persistent small to tin y right pleural effusion. Cardiac silhouette stable and within normal limits. Levoconvex scoliosis ce ntered mid thoracic spine redemonstrated. IMPRESSION: As above.
--- NOTE | 2021-03-23 16:36 | P.PCN ---
Date of Procedure: 03/23/21 Preoperative Diagnosis: COVID pneumonia Postoperative Diagnosis: COVID pneumonia and respiratory failure Procedure(s) Performed: Tripple lumen cath insertion Anesthesia: local Surgeon: Lin Pruitt Pathology: other Condition: critical Disposition: ICU Operative Findings: Indication: Hemodynamic monitoring/Intravenous access. A time-out was completed verifying correct patient, procedure, site, positioning, and implant(s) or special equipment if applicable. The patient was placed in a dependent position appropriate for central line placement based on the vein to be cannulated. The patients right neck was prepped and draped in sterile fashion. 1% Lidocaine was used to anesthetize the surrounding skin area. A triple lumen 9F Cordis catheter was introduced into the internal jugular vein using Seldinger technique. The catheter was threaded smoothly over the guide wire and appropriate blood return was obtained. Each lumen of the catheter was evacuated of air and flushed with sterile saline. The catheter was then sutured in place to the skin and a sterile dressing applied. Perfusion to the extremity distal to the point of catheter insertion was checked and found to be adequate. The patient tolerated the procedure well and there were no complications.
[2021-03-23] MEDS: HYDROmorphone 1 MG/ML 1 ML SYRINGE IVP PRN ×2 (16:39→19:33)
--- NOTE | 2021-03-23 16:47 | XR ---
EXAMINATION TYPE: XR chest 1V confirm line [facility] DATE OF EXAM: 03/23/2021 COMPARISON: chest xray same day earlier time HISTORY: line manipulation TECHNIQUE: Single frontal view of the chest is obtained. FINDINGS: There has been interval repositioning of the central venous catheter and the tip is now at the level of the superior vena cava. No other significant interval change. IMPRESSION: interval line reposition.
[2021-03-23 17:39] LABS: Glucose,Whole Blood 189 mg/dL (75-99)
[2021-03-23 20:58] LABS: Glucose,Whole Blood 140 mg/dL (75-99)
[2021-03-23] MEDS: TEMAZEPAM 15 MG CAP PO SCH (21:48)
[2021-03-23] MEDS: amLODIPine 10 MG TAB PO SCH (21:48)
[2021-03-23 21:55] LABS: ABG Base Excess -2.4 mmol/L; ABG HCO3 24 mmol/L (21-25); ABG Oxygen Saturation 67.1 % (94-97); ABG PCO2 48 mmHg (35-45); ABG PH 7.31 (7.35-7.45); ABG TCO2 25 mmol/L (19-24); Allen Test Performed? Yes
[2021-03-23] MEDS ORDERED: propofoL 100 ML IV ONE (22:01)
[2021-03-23 22:02] LABS: ABG PO2 39 mmHg (83-108)
[2021-03-23] MEDS ORDERED: IPRATROPIUM-ALBUTEROL 3 ML NEB INHALATION PRN (22:03)
--- NOTE | 2021-03-23 22:49 | XR ---
EXAMINATION TYPE: XR chest 1V portable DATE OF EXAM: 03/23/2021 COMPARISON: Today HISTORY: Tube placement TECHNIQUE: Single view FINDINGS: There is endotracheal tube 4.5 cm from the rimma. There is right jugular catheter with tip in the superior vena cava. There is nasogastric tube. There is a large right-sided tension pneumothorax. Heart is shifted to the left side. There is comple te collapse of the right lung. Mediastinum shifted to the left side. There is inflation of the right hemithorax and flattening of the diaphragm. IMPRESSION: Tension right-sided pneumothorax. The nursing staff in the ICU was contacted and this exa m discussed. The right-sided chest tube appears to be partly pulled out of the chest compared to the exam 6 hours ago. Right chest tube is probably not in the pleural space.
[2021-03-23] MEDS ORDERED: NOREPINEPHRIN 4 MG-0.9% NS PMX 4 MG/250 ML ML IV ONE (22:59)
[2021-03-23] MEDS ORDERED: LIDOCAINE 2% (PF) 20 MG/ML 5 ML VIAL ONE (23:09)
[2021-03-23] MEDS ORDERED: NOREPINEPHRINE 4 MG in SODIUM CHLORIDE 0.9% 250 ML IV SCH (23:15)
--- NOTE | 2021-03-23 23:36 | ED ---
Medical Decision Making - Medical Decision Making This is a procedure note. I was working in the emergency department and received a call from Dr. Pruitt. This patient is in the ICU and had an enlarging right-sided pneumothorax with concern of developing tension pneumothorax. I was requested that I see the patient about placing a chest tube. I went directly to the ICU and the patient was beginning to become more hypotensive despite being on pressors. I reviewed the chest x-ray that was at the bedside and proceeded to place the right-sided thoracostomy tube based on emergent consent. Chest tube placed in the standard fashion, without complication, see the note attached. Pressures began to improve immediately after release of pneumothorax. I was summoned back to the emergency department but chest x-ray is ordered and w ill be reviewed. Chest X-ray reviewed showing partial resolution of pneumothorax and moderate reinflation of right lung. - Lab Data Result diagrams: 03/23/21 13:09 03/23/21 13:09 Lab Results 03/01/21 03/01/21 03/01/21 Range/Units 13:48 13:48 13:48 WBC 4.7 (3.8-10.6) k/uL RBC 6.03 H (4.30-5.90) m/uL Hgb 18.9 H (13.0-17.5) gm/dL Hct 54.7 H (39.0-53.0) % MCV 90.7 (80.0-100.0) fL MCH 31.3 (25.0-35.0) pg MCHC 34.5 (31.0-37.0) g/dL RDW 14.3 (11.5-15.5) % Plt Count 171 (150-450) k/uL MPV 8.5 Neutrophils % 82 % Lymphocytes % 10 % Monocytes % 5 % Eosinophils % 1 % Basophils % 1 % Neutrophils # 3.9 (1.3-7.7) k/uL Lymphocytes # 0.5 L (1.0-4.8) k/uL Monocytes # 0.2 (0-1.0) k/uL Eosinophils # 0.0 (0-0.7) k/uL Basophils # 0.1 (0-0.2) k/uL PT 10.5 (9.0-12.0) sec INR 1.0 (<1.2) APTT 21.6 L (22.0-30.0) sec D-Dimer 1.11 H (<0.60) mg/L FEU Sodium (137-145) mmol/L Potassium (3.5-5.1) mmol/L Chloride (98-107) mmol/L Carbon Dioxide (22-30) mmol/L Anion Gap mmol/L BUN (9-20) mg/dL Creatinine (0.66-1.25) mg/dL Est GFR (CKD-EPI)AfAm (>60 ml/min/1.73 sqM) Est GFR (CKD-EPI)NonAf (>60 ml/min/1.73 sqM) Glucose (74-99) mg/dL Lactic Ac Sepsis Rflx Plasma Lactic Acid Kavon 3.1 H* (0.7-2.0) mmol/L Calcium (8.4-10.2) mg/dL Magnesium (1.6-2.3) mg/dL Total Bilirubin (0.2-1.3) mg/dL AST (17-59) U/L ALT (4-49) U/L Alkaline Phosphatase (38-126) U/L Creatine Kinase (55-170) U/L Troponin I (0.000-0.034) ng/mL NT-Pro-B Natriuret Pep pg/mL Total Protein (6.3-8.2) g/dL Albumin (3.5-5.0) g/dL 03/01/21 03/01/21 03/01/21 Range/Units 13:48 13:48 14:42 WBC (3.8-10.6) k/uL RBC (4.30-5.90) m/uL Hgb (13.0-17.5) gm/dL Hct (39.0-53.0) % MCV (80.0-100.0) fL MCH (25.0-35.0) pg MCHC (31.0-37.0) g/dL RDW (11.5-15.5) % Plt Count (150-450) k/uL MPV Neutrophils % % Lymphocytes % % Monocytes % % Eosinophils % % Basophils % % Neutrophils # (1.3-7.7) k/uL Lymphocytes # (1.0-4.8) k/uL Monocytes # (0-1.0) k/uL Eosinophils # (0-0.7) k/uL Basophils # (0-0.2) k/uL PT (9.0-12.0) sec INR (<1.2) APTT (22.0-30.0) sec D-Dimer (<0.60) mg/L FEU Sodium (137-145) mmol/L Potassium (3.5-5.1) mmol/L Chloride (98-107) mmol/L Carbon Dioxide (22-30) mmol/L Anion Gap mmol/L BUN (9-20) mg/dL Creatinine (0.66-1.25) mg/dL Est GFR (CKD-EPI)AfAm (>60 ml/min/1.73 sqM) Est GFR (CKD-EPI)NonAf (>60 ml/min/1.73 sqM) Glucose (74-99) mg/dL Lactic Ac Sepsis Rflx Y Plasma Lactic Acid Kavon (0.7-2.0) mmol/L Calcium (8.4-10.2) mg/dL Magnesium (1.6-2.3) mg/dL Total Bilirubin (0.2-1.3) mg/dL AST (17-59) U/L ALT (4-49) U/L Alkaline Phosphatase (38-126) U/L Creatine Kinase (55-170) U/L Troponin I <0.012 (0.000-0.034) ng/mL NT-Pro-B Natriuret Pep 133 pg/mL Total Protein (6.3-8.2) g/dL Albumin (3.5-5.0) g/dL 03/01/21 03/01/21 Range/Units 15:51 17:19 WBC (3.8-10.6) k/uL RBC (4.30-5.90) m/uL Hgb (13.0-17.5) gm/dL Hct (39.0-53.0) % MCV (80.0-100.0) fL MCH (25.0-35.0) pg MCHC (31.0-37.0) g/dL RDW (11.5-15.5) % Plt Count (150-450) k/uL MPV Neutrophils % % Lymphocytes % % Monocytes % % Eosinophils % % Basophils % % Neutrophils # (1.3-7.7) k/uL Lymphocytes # (1.0-4.8) k/uL Monocytes # (0-1.0) k/uL Eosinophils # (0-0.7) k/uL Basophils # (0-0.2) k/uL PT (9.0-12.0) sec INR (<1.2) APTT (22.0-30.0) sec D-Dimer (<0.60) mg/L FEU Sodium 137 (137-145) mmol/L Potassium 4.3 (3.5-5.1) mmol/L Chloride 101 (98-107) mmol/L Carbon Dioxide 24 (22-30) mmol/L Anion Gap 12 mmol/L BUN 34 H (9-20) mg/dL Creatinine 1.42 H (0.66-1.25) mg/dL Est GFR (CKD-EPI)AfAm 64 (>60 ml/min/1.73 sqM) Est GFR (CKD-EPI)NonAf 55 (>60 ml/min/1.73 sqM) Glucose 168 H (74-99) mg/dL Lactic Ac Sepsis Rflx Plasma Lactic Acid Kavon 1.5 (0.7-2.0) mmol/L Calcium 8.1 L (8.4-10.2) mg/dL Magnesium 2.1 (1.6-2.3) mg/dL Total Bilirubin 0.4 (0.2-1.3) mg/dL AST 58 (17-59) U/L ALT 30 (4-49) U/L Alkaline Phosphatase 85 (38-126) U/L Creatine Kinase 112 (55-170) U/L Troponin I (0.000-0.034) ng/mL NT-Pro-B Natriuret Pep pg/mL Total Protein 6.4 (6.3-8.2) g/dL Albumin 3.6 (3.5-5.0) g/dL Disposition Clinical Impression: Pneumonia due to COVID-19 virus, Bronchospasm, acute, Dehydration, Hypoxemia, Lactic acidosis Disposition: ADMITTED IP TO THIS [facility] Condition: Serious Procedures - [place] Protocol (Time Out) Nurse: Charmaine Brito T - Chest Tube Insertion Consent Obtained: emergent situation Side of Procedure: right Indication: Pneumothorax Placed on monitor/pulse oximetry: Yes Site Prep: Chloroprep, Sterile Drape Applied Local Anesthesia: Lidocaine 1% Insertion Site: 5th Intercostal Space Scalpel: #15 Open into Pleural Space Using: Tiffanie Clamp Tube Size (Swedish): 32 Returns: Air, Other (Pleural fluid) Sutured in Place: Yes Type of Suture: Silk Dressing Applied: Tape Attached to Suction: Yes Type of Suction: Pleuravac Patient Tolerated Procedure: well, no complications
[2021-03-23] MEDS: CISATRACURIUM 200 MG in SODIUM CHLORIDE 0.9% 180 ML IV SCH (23:42)
[2021-03-23] MEDS: NOREPINEPHRINE 8 MG in SODIUM CHLORIDE 0.9% 250 ML IV SCH ×2 (23:44→23:57)
--- NOTE | 2021-03-23 23:45 | XR ---
EXAMINATION TYPE: XR chest 1V portable DATE OF EXAM: 03/23/2021 COMPARISON: Today HISTORY: Tube placement TECHNIQUE: Single view FINDINGS: There is large right-sided pneumothorax with shift of heart and mediastinum to the left chase e. There is right jugular catheter with tip in the superior vena cava. Endotracheal tube is 5 cm from the rimma. There is depression of the right hemidiaphragm. IMPRESSION: There is tension right-sided pneumothorax without change. Malfunctioning right chest tube .
[2021-03-23 23:48] LABS: ABG Base Excess -8.2 mmol/L; ABG HCO3 21 mmol/L (21-25); ABG Oxygen Saturation 91.8 % (94-97); ABG PCO2 67 mmHg (35-45); ABG PO2 86 mmHg (83-108); ABG TCO2 23 mmol/L (19-24); Allen Test Performed? Yes
[2021-03-23 23:51] LABS: ABG PH 7.11 (7.35-7.45)
[2021-03-24] MEDS ORDERED: IPRATROPIUM-ALBUTEROL 3 ML NEB INHALATION SCH
--- NOTE | 2021-03-24 | XR ---
EXAMINATION TYPE: XR chest 1V portable DATE OF EXAM: 03/23/2021 COMPARISON: Today HISTORY: Tube placement TECHNIQUE: Single view FINDINGS: There are 2 right-sided chest tubes. The right larger chest tube is in good position with t he tip at the right lung apex. There is clearing of the large tension pneumothorax compared to recent exam. Trachea is midline. There is right jugular catheter with tip in the superior vena cava. The en dotracheal tube is 3 cm from the rimma. There is nasogastric tube in the stomach. There is coarse in terstitial pulmonary infiltrates. IMPRESSION: There is clearing of the tension pneumothorax. There is small amount of soft tissue air o n the right chest wall. No residual pneumothorax seen. Moderate pulmonary interstitial pneumonia.
[2021-03-24] MEDS: ALBUTEROL HFA INHALER INHALATION PRN ×5 (00:36→15:22)
[2021-03-24] MEDS: NOREPINEPHRINE 8 MG in SODIUM CHLORIDE 0.9% 250 ML IV SCH (04:29)
[2021-03-24 04:50] LABS: HCT 51.6 % (39.0-53.0); HGB 17.5 gm/dL (13.0-17.5); Hypochromasia Slight; MCH 32.8 pg (25.0-35.0); MCV 96.5 fL (80.0-100.0); Mean Platelet Volume 9.6; RBC 5.35 m/uL (4.30-5.90); RDW 14.8 % (11.5-15.5); WBC 14.3 k/uL (3.8-10.6)
[2021-03-24 05:07] LABS: Calcium 7.8 mg/dL (8.4-10.2)
[2021-03-24 05:16] LABS: ABG Base Excess -7.6 mmol/L; ABG HCO3 22 mmol/L (21-25); ABG Oxygen Saturation 93.9 % (94-97); ABG PO2 90 mmHg (83-108); ABG TCO2 25 mmol/L (19-24); Allen Test Performed? Yes
[2021-03-24 05:19] LABS: ABG PCO2 74 mmHg (35-45); ABG PH 7.09 (7.35-7.45)
[2021-03-24 05:39] LABS: C Reactive Protein 38.1 mg/dL (<1.0)
[2021-03-24 05:56] LABS: Platelet Count 54 k/uL (150-450)
[2021-03-24] MEDS ORDERED: SODIUM BICARB 8.4% 50 ML SYR (1 MEQ/ML) IV STA (06:04)
[2021-03-24] MEDS: DEXTROSE 5% IN WATER 1,000 ML with SODIUM BICARB (1 MEQ/ML) 150 ML IV SCH ×2 (06:30→20:19)
[2021-03-24 06:54] LABS: Band Neutrophils % 23 %; Lymphocytes # (M) 0.57 k/uL (1.0-4.8); Metamyelocytes # (M) 0.14 k/uL (0); Metamyelocytes % 1 %; Monocytes # (M) 0.43 k/uL (0-1.0); Neutrophils % (M) 70 %; Nucleated Red Blood Cells 0 /100 WBC (0-0); Total Cells Counted 200
[2021-03-24 06:56] LABS: Glucose,Whole Blood 177 mg/dL (75-99)
[2021-03-24 06:57] LABS: Large Platelets Present
[2021-03-24 06:58] LABS: Poikilocytosis (M) Present
[2021-03-24] MEDS: INSULIN DETEMIR (LEVEMIR) 100 UNIT/ML SYR SQ SCH ×2 (07:02→20:19)
[2021-03-24] MEDS: INSULIN ASPART (NovoLOG) 100 UNIT/ML VIAL SQ SCH ×3 (07:02→18:18)
[2021-03-24 08:09] LABS: ABG Base Excess -0.1 mmol/L; ABG HCO3 28 mmol/L (21-25); ABG PCO2 68 mmHg (35-45); ABG PH 7.22 (7.35-7.45); ABG PO2 103 mmHg (83-108); ABG TCO2 30 mmol/L (19-24); Allen Test Performed? Yes
--- NOTE | 2021-03-24 08:12 | XR ---
EXAMINATION TYPE: XR chest 1V portable DATE OF EXAM: 03/24/2021 COMPARISON: 03/23/2021 HISTORY: Tube placement TECHNIQUE: Portable AP semiupright single view chest FINDINGS: There are 2 right-sided chest tubes. The right larger chest tube is in good position with t he tip at the right lung apex.. There is right jugular catheter with tip in the superior vena cava. T he endotracheal tube is 5 cm from the rimma. There is enteric catheter coursing towards the stomach, tip not seen. There is coarse diffuse interstitial pulmonary airspace opacities. IMPRESSION: 1. Right-sided chest tubes. No residual pneumothorax seen. 2. Diffuse pulmonary interstitial airspace opacities are stable.
[2021-03-24] MEDS: ASCORBIC ACID 500 MG TAB PO SCH (08:37)
[2021-03-24] MEDS: FAMOTIDINE 20 MG TAB PO SCH (08:37)
[2021-03-24] MEDS: CHLORHEXIDINE GLUCONATE 15 ML CUP MUCOUS MEM SCH ×2 (08:37→20:19)
[2021-03-24] MEDS: CHOLECALCIFEROL 25 MCG (1000 IU) TABLET PO SCH (08:37)
[2021-03-24] MEDS: ALPRAZolam 0.5 MG TAB PO SCH (08:37)
[2021-03-24] MEDS: ZINC SULFATE 220 MG CAP PO SCH (08:37)
--- NOTE | 2021-03-24 10:24 | P.PN ---
Subjective Progress Note Date: 03/24/21 55-year-old male patient, diagnosed having COVID-19 infection 03/23/2021, the patient is being seen for a follow-up. Earlier this morning, the patient was on high flow oxygen with 55 L with an FiO2 of 81%. Subsequently, he became progressively more dyspneic and hypoxic and the patient also developed right-sided chest pain. At that point, he was placed on 100% nonrebreather facemask in addition to his high flow oxygen. His current pulse ox is at 85%. His high flow oxygen is running at extremity liters with an FiO2 of 90%. A chest x-ray was done and showed development of a large right-sided pneumothorax. The patient has also ongoing diffuse pulmonary infiltration involving the left lung. He is currently short of breath. The Neck. Tachycardic. Heart rate is around 147, sinus. He is afebrile. He remains on prednisone orally 40 mg by mouth daily. There is COVID-19 related pneumoni a/ARDS. The patient will be transferred to the intensive care unit. I will put a Thoravent for him. His platelet count is improving is currently up to 43. HIV antibodies have been sent and results are still pending. LDH from yesterday was 1002 with a CRP level of 26.4. His inflammatory markers remain elevated although they're not as high as earlier values in regards to his LVH. He is awake. He is conscious. His communicating. He is a bit tachypneic and his current respiratory rate in the mid 30s. IV fluids are running at the rate of 75 mL an hour of normal saline. Remains on multivitamins. Remains on restoril for sleep. He remains on Levemir insulin 40 units daily a.m. and 25 units in p.m. along with a sliding scale coverage. Afebrile. No signs of any fluid overload. \ 03/24, the patient is being seen in follow-up in intensive care unit. He is critically ill and currently intubated on a mechanical ventilator. Events from yesterday were noted. Noted initially the patient developed this moderate- sized right-sided pneumothorax. A Thoravent was inserted and it was successful and the right lung expanded. He was moved to the intensive care unit where he was kept on a combination of high flow oxygen and on the percent nonrebreather facemask. Nevertheless, overnight, his condition decompensated. He became progressively more hypoxic. He became progressively more agitated and restless. His pulse ox dropped further and his pO2 on a blood gas was down to 37. At that point, I decided to assess for intubation mechanical ventilation. The patient was intubated successfully and the patient currently has kristen tracheal tube #8. Post intubation, the patient became hypotensive. Immediately a chest x-ray was done that showed a large tension pneumothorax. Immediately a 28- Bruneian chest tube was inserted in the right lung with complete reexpansion of the right chest. Note that the Thoravent is still an adequate location the right chest. He has a right IJ triple-lumen catheter in place. At this point in time, the patient is an assist-control mode at the rate of 36 with a tidal volume of 400 and FiO2 of 100% with a PEEP of 15. Chest x-ray showing diffuse bilateral pulmonary infiltrates right more than left. There is no residual pneumothorax. The right-sided chest tube is in a good location. Output from the chest tube is in the order of 80 mL since the chest tube has been inserted. Also positive air leak. The patient is currently on propofol at 50 mg/kg/m. Patient is also paralyzed with Nimbex at 1 mcg/kg per minute. He is quite successful the mechanical ventilator. Note that post chest tube insertion, the patient improved and the patient's hemodynamics improved. He was taken off pressors. Currently is receiving IV fluids at the rate of 100 mL an hour of D5 150 mEq of sodium bicarbonate. This wish the bicarb infusion was done earlier this morning as the patient was getting acidotic and he has also developed some hyperkalemia. He received also a total of 150 mEq of sodium bicarb IV push which brought his potassium from 6.2 down to 5.4. The most recent blood gas shows a pH of 7.22 with a pCO2 of 68 and pO2 of 103. His peak airway pressure is 36. In terms of COVID-19 treatment, the patient has been maintained on oral prednisone 40 mg IV daily basis. His been on steroids for more than 3 weeks for now. He will be started on enteral feeding for nutritional support. His urine output is known that of 20 mL an hour. His platelet count today is up to 54 and the patient is off Lovenox for now. The antibodies for heparin-induced thrombocytopenia was negative. The d-dimer is down to 1.8. Objective - Vital Signs Vital signs: Vital Signs Temp 98.4 F 03/24/21 04:00 Pulse 126 H 03/24/21 09:30 Resp 36 H 03/24/21 09:30 BP 114/83 03/24/21 07:00 Pulse Ox 94 L 03/24/21 09:30 Intake & Output 03/23/21 03/24/21 03/24/21 18:59 06:59 18:59 Intake Total 225 1006.088 276.001 Output Total 200 320 75 Balance 25 686.088 201.001 Weight 89.8 kg Intake: IV 225 900 275 Dextrose 5% in Water 1, 200 000 ml @ 100 mls/hr IV . [id number] ELENA with Sodium Bicarb (1 Meq/ml) 150 ml Rx#:[id number] Sodium Chloride 0.9% 1, 225 900 75 000 ml @ 75 mls/hr IV . [id number] ELENA Rx#:[id number] Intake, IV Titration 106.088 1.001 Amount Cisatracurium 200 mg In 3.641 1.001 Sodium Chloride 0.9% 180 ml @ 1 MCG/KG/MIN 5.748 mls/hr IV .Q24H ELENA Rx#: [id number] Norepinephrine 8 mg In 2.255 Sodium Chloride 0.9% 250 ml @ 0.05 MCG/KG/MIN 9. 269 mls/hr IV .Q24H ELENA Rx#:[id number] propofoL 1,000 mg In 100.192 Empty Bag 1 bag @ Titrate IV .Q0M ELENA Rx#: [id number] Output: Chest Tube Drainage 140 Chest Tube Right 140 Urine 200 180 75 Stool 0 Other: Voiding Method Urinal Indwelling Catheter Indwelling Catheter Diaper # Voids 1 0 ABP, PAP, CO, CI - Last Documented Arterial Blood Pressure 100/62 - Exam GENERAL EXAM: Alert, pleasant 55-year-old gentleman, a mechanical ventilator. Sedated and paralyzed. Orogastric and orotracheal tube are both in place. HEAD: Normocephalic. EYES: Normal reaction of pupils, equal size. NOSE: Clear with pink turbinates. THROAT: No erythema or exudates. NECK: No masses, no JVD. CHEST: No chest wall deformity. LUNGS: Equal air entry with coarse crackles in the bilateral posterior bases. Breath sounds are diminished and symmetrical and the patient has a right-sided chest tube in place, a 28-Bruneian chest tube has been inserted successfully and there is positive air leak. Sedated and paralyzed this morning CVS: S1 and S2 normal with no audible murmur, regular rhythm. The patient is quite tachycardic, sinus with a heart rate in the 140s ABDOMEN: No hepatosplenomegaly, normal bowel sounds, no guarding or rigidity. SPINE: No scoliosis or deformity SKIN: No rashes CENTRAL NERVOUS SYSTEM: sedated and paralyzed this morning EXTREMITIES: There is no peripheral edema. No clubbing, no cyanosis. Peripheral pulses are intact. - Labs CBC & Chem 7: 03/24/21 04:30 03/24/21 08:12 Labs: Abnormal Lab Results - Last 24 Hours (Table) 03/23/21 03/23/21 03/23/21 Range/Units 11:25 13:09 13:09 WBC (3.8-10.6) k/uL Hgb 17.9 H (13.0-17.5) gm/dL Hct 53.1 H (39.0-53.0) % Plt Count 36 L (150-450) k/uL Neutrophils # (Manual) (1.3-7.7) k/uL Lymphocytes # 0.3 L (1.0-4.8) k/uL Lymphocytes # (Manual) (1.0-4.8) k/uL Metamyelocytes # (Man) (0) k/uL D-Dimer (<0.60) mg/L FEU ABG pH (7.35-7.45) ABG pCO2 (35-45) mmHg ABG pO2 (83-108) mmHg ABG HCO3 (21-25) mmol/L ABG Total CO2 (19-24) mmol/L ABG O2 Saturation (94-97) % Sodium 136 L (137-145) mmol/L Potassium (3.5-5.1) mmol/L Carbon Dioxide (22-30) mmol/L BUN 30 H (9-20) mg/dL Creatinine 0.63 L (0.66-1.25) mg/dL Glucose 152 H (74-99) mg/dL POC Glucose (mg/dL) 149 H (75-99) mg/dL Calcium (8.4-10.2) mg/dL Lactate Dehydrogenase 1029 H (313-618) U/L C-Reactive Protein 25.2 H (<1.0) mg/dL 03/23/21 03/23/21 03/23/21 Range/Units 13:29 17:38 20:56 WBC (3.8-10.6) k/uL Hgb (13.0-17.5) gm/dL Hct (39.0-53.0) % Plt Count (150-450) k/uL Neutrophils # (Manual) (1.3-7.7) k/uL Lymphocytes # (1.0-4.8) k/uL Lymphocytes # (Manual) (1.0-4.8) k/uL Metamyelocytes # (Man) (0) k/uL D-Dimer (<0.60) mg/L FEU ABG pH (7.35-7.45) ABG pCO2 (35-45) mmHg ABG pO2 (83-108) mmHg ABG HCO3 (21-25) mmol/L ABG Total CO2 (19-24) mmol/L ABG O2 Saturation (94-97) % Sodium (137-145) mmol/L Potassium (3.5-5.1) mmol/L Carbon Dioxide (22-30) mmol/L BUN (9-20) mg/dL Creatinine (0.66-1.25) mg/dL Glucose (74-99) mg/dL POC Glucose (mg/dL) 143 H 189 H 140 H (75-99) mg/dL Calcium (8.4-10.2) mg/dL Lactate Dehydrogenase (313-618) U/L C-Reactive Protein (<1.0) mg/dL 03/23/21 03/23/21 03/24/21 Range/Units 21:53 23:44 04:30 WBC 14.3 H (3.8-10.6) k/uL Hgb (13.0-17.5) gm/dL Hct (39.0-53.0) % Plt Count 54 L (150-450) k/uL Neutrophils # (Manual) 13.20 H (1.3-7.7) k/uL Lymphocytes # (1.0-4.8) k/uL Lymphocytes # (Manual) 0.57 L (1.0-4.8) k/uL Metamyelocytes # (Man) 0.14 H (0) k/uL D-Dimer (<0.60) mg/L FEU ABG pH 7.31 L 7.11 L* (7.35-7.45) ABG pCO2 48 H 67 H (35-45) mmHg ABG pO2 39 L* (83-108) mmHg ABG HCO3 (21-25) mmol/L ABG Total CO2 25 H (19-24) mmol/L ABG O2 Saturation 67.1 L 91.8 L (94-97) % Sodium (137-145) mmol/L Potassium (3.5-5.1) mmol/L Carbon Dioxide (22-30) mmol/L BUN (9-20) mg/dL Creatinine (0.66-1.25) mg/dL Glucose (74-99) mg/dL POC Glucose (mg/dL) (75-99) mg/dL Calcium (8.4-10.2) mg/dL Lactate Dehydrogenase (313-618) U/L C-Reactive Protein (<1.0) mg/dL 03/24/21 03/24/21 03/24/21 Range/Units 04:30 04:30 05:10 WBC (3.8-10.6) k/uL Hgb (13.0-17.5) gm/dL Hct (39.0-53.0) % Plt Count (150-450) k/uL Neutrophils # (Manual) (1.3-7.7) k/uL Lymphocytes # (1.0-4.8) k/uL Lymphocytes # (Manual) (1.0-4.8) k/uL Metamyelocytes # (Man) (0) k/uL D-Dimer 1.80 H (<0.60) mg/L FEU ABG pH 7.09 L* (7.35-7.45) ABG pCO2 74 H* (35-45) mmHg ABG pO2 (83-108) mmHg ABG HCO3 (21-25) mmol/L ABG Total CO2 25 H (19-24) mmol/L ABG O2 Saturation 93.9 L (94-97) % Sodium 136 L (137-145) mmol/L Potassium (3.5-5.1) mmol/L Carbon Dioxide 20 L (22-30) mmol/L BUN 49 H (9-20) mg/dL Creatinine 1.38 H (0.66-1.25) mg/dL Glucose 200 H (74-99) mg/dL POC Glucose (mg/dL) (75-99) mg/dL Calcium 7.8 L (8.4-10.2) mg/dL Lactate Dehydrogenase 2141 H (313-618) U/L C-Reactive Protein 38.1 H (<1.0) mg/dL 03/24/21 03/24/21 03/24/21 Range/Units 05:29 06:54 08:06 WBC (3.8-10.6) k/uL Hgb (13.0-17.5) gm/dL Hct (39.0-53.0) % Plt Count (150-450) k/uL Neutrophils # (Manual) (1.3-7.7) k/uL Lymphocytes # (1.0-4.8) k/uL Lymphocytes # (Manual) (1.0-4.8) k/uL Metamyelocytes # (Man) (0) k/uL D-Dimer (<0.60) mg/L FEU ABG pH 7.22 L (7.35-7.45) ABG pCO2 68 H (35-45) mmHg ABG pO2 (83-108) mmHg ABG HCO3 28 H (21-25) mmol/L ABG Total CO2 30 H (19-24) mmol/L ABG O2 Saturation (94-97) % Sodium (137-145) mmol/L Potassium 6.2 H* (3.5-5.1) mmol/L Carbon Dioxide (22-30) mmol/L BUN (9-20) mg/dL Creatinine (0.66-1.25) mg/dL Glucose (74-99) mg/dL POC Glucose (mg/dL) 177 H (75-99) mg/dL Calcium (8.4-10.2) mg/dL Lactate Dehydrogenase (313-618) U/L C-Reactive Protein (<1.0) mg/dL 03/24/21 Range/Units 08:12 WBC (3.8-10.6) k/uL Hgb (13.0-17.5) gm/dL Hct (39.0-53.0) % Plt Count (150-450) k/uL Neutrophils # (Manual) (1.3-7.7) k/uL Lymphocytes # (1.0-4.8) k/uL Lymphocytes # (Manual) (1.0-4.8) k/uL Metamyelocytes # (Man) (0) k/uL D-Dimer (<0.60) mg/L FEU ABG pH (7.35-7.45) ABG pCO2 (35-45) mmHg ABG pO2 (83-108) mmHg ABG HCO3 (21-25) mmol/L ABG Total CO2 (19-24) mmol/L ABG O2 Saturation (94-97) % Sodium (137-145) mmol/L Potassium 5.4 H (3.5-5.1) mmol/L Carbon Dioxide (22-30) mmol/L BUN (9-20) mg/dL Creatinine (0.66-1.25) mg/dL Glucose (74-99) mg/dL POC Glucose (mg/dL) (75-99) mg/dL Calcium (8.4-10.2) mg/dL Lactate Dehydrogenase (313-618) U/L C-Reactive Protein (<1.0) mg/dL Microbiology - Last 24 Hours (Table) 03/24/21 00:17 Sputum Culture - Preliminary Sputum 03/23/21 23:40 Urine Culture - Preliminary Urine,Catheterized Assessment and Plan Plan: 1 Acute COVID-19 related pneumonia with diffuse bilateral pulmonary infiltrates/groundglass changes. Patient started getting symptoms approximately 5 days prior to and was diagnosed having COVID-19 infection on 03/01/2021 and a diagnosis was established at [email or web address]. He remains hypoxic and currently is on AirVo high flow oxygen 55 L with an FiO2 of 85%. Received Tocilizumab on 03/02/2021. Fortunately, the patient's recovery has been extremely slow. The patient has COVID-19 related pneumonia with diffuse bilateral pulmonary infiltrates and the patient has limited recovery and he was requiring high flow oxygen. Condition decompensated yesterday with development of a large right- sided pneumothorax. Initially treated with oral ventilator on intubated and placed on a mechanical ventilator requiring a 28-Bruneian chest tube being inserted in the right lung. The chest is well expanded and there is no residual pneumothorax. Is positive air leak. Currently intubated on a mechanical ventilator, sedated and paralyzed. 2 Large right-sided pneumothorax, developed right-sided pneumothorax requiring placement of right-sided Thoravent on 03/23/2021 with re-expansion of right lung. Subsequently in the evening of 03/23/2021 patient developed recurrent right pneumothorax with tension requiring placement of #28 chest tube with re- expansion of right lung 2 Acute hypoxic respiratory failure secondary to above, patient required intubation and placement on mech vent on 03/23/2021, currently sedated and p aralyzed on FIO2 of 100%, PEEP 15, chest x-ray was noted, blood gases was noted. Positive air leak. 3 Elevated inflammatory markers secondary to COVID-19 related infection/pneumonia, d-dimer is low at this point in time 4 COPD 5 Acute kidney injury, recovered, 6 Hypertension 7 diabetes mellitus with steroid-induced hyperglycemia currently on Levemir insulin 8 thrombocytopenia, improving, up to 54, Lovenox remains on hold, HIIT antibodies negative 9 anemia hyperkalemia secondary to respiratory acidosis, treated with bicarb infusion and potassium level is down to 5.4 Plan: CXR reviewed, Right lung is re-expanded following placement of right chest tube continue with current vent setting, The FiO2 down to 80% Paralytic holiday Keep sedation for now with propofol Monitor platelet count and restart Lovenox once the patient's platelet count is above 50 K Initiate tube feeds Steroids will be switched to Decadron 4 mg or milligrams on a daily basis Hemodynamically stable Continue the bicarb infusion Monitor the potassium level Repeat blood. Around noontime Had a lengthy discussion with the daughter and updated her on the condition. Condition is critical. Prognosis is poor baseline above-mentioned comorbidities. I may consider an early tracheostomy tube on this patient pro bably by early next week. Meanwhile, I surgery consultation will be obtained. He may benefit from a early tracheostomy tube insertion of a PEG tube insertion. Critical care evaluation that was done more than 30 minutes. Time with Patient: Greater than 30
[2021-03-24 11:21] LABS: Glucose,Whole Blood 238 mg/dL (75-99)
--- NOTE | 2021-03-24 12:37 | P.GSCN ---
History of Present Illness Consult date: 03/24/21 Reason for Consult: Respiratory failure History of present illness: We were consulted to see Thom for tracheostomy and PEG tube placement possibly next week. Patient has been in the hospital for the last several weeks as a result of COVID-19 infection. Patient developed a right-sided pneumothorax. He was in the ICU and had progressive respiratory failure yesterday requiring intubation. Patient is on 80% FiO2 and high levels of PEEP at present. It appears this is his first intubation since admission. Review of Systems ROS unobtainable: due to endotracheal tube Past Medical History Past Medical History: COPD, Hypertension History of Any Multi-Drug Resistant Organisms: None Reported Past Surgical History: Orthopedic Surgery Past Psychological History: No Psychological Hx Reported Smoking Status: Former smoker Past Alcohol Use History: None Reported Past Drug Use History: None Reported Medications and Allergies Home Medications Medication Instructions Recorded Confirmed Type amLODIPine [Norvasc] 10 mg PO HS 03/01/21 03/01/21 History lisinopriL [Zestril] 5 mg PO HS 03/01/21 03/01/21 History Allergies Allergy/AdvReac Type Severity Reaction Status Date / Time No Known Allergies Allergy Verified 03/01/21 15:07 Surgical - Exam Vital Signs Temp Pulse Resp BP Pulse Ox 98.3 F 129 H 30 H 151/88 88 L 03/01/21 13:36 03/01/21 13:36 03/01/21 13:36 03/01/21 13:36 03/01/21 13:36 Physical exam: General: Well-developed, well-nourished HEENT: Normocephalic, sclerae nonicteric, endotracheal tube in place Chest: Right-sided chest tube in place Abdomen: Nontender, nondistended Extremities: Mild lower extremity edema Neuro: On ventilator Results - Labs 03/24/21 04:30 03/24/21 08:12 Abnormal Lab Results - Last 24 Hours (Table) 03/23/21 03/23/21 03/23/21 Range/Units 13:09 13:09 13:29 WBC (3.8-10.6) k/uL Hgb 17.9 H (13.0-17.5) gm/dL Hct 53.1 H (39.0-53.0) % Plt Count 36 L (150-450) k/uL Neutrophils # (Manual) (1.3-7.7) k/uL Lymphocytes # 0.3 L (1.0-4.8) k/uL Lymphocytes # (Manual) (1.0-4.8) k/uL Metamyelocytes # (Man) (0) k/uL D-Dimer (<0.60) mg/L FEU ABG pH (7.35-7.45) ABG pCO2 (35-45) mmHg ABG pO2 (83-108) mmHg ABG HCO3 (21-25) mmol/L ABG Total CO2 (19-24) mmol/L ABG O2 Saturation (94-97) % Sodium 136 L (137-145) mmol/L Potassium (3.5-5.1) mmol/L Carbon Dioxide (22-30) mmol/L BUN 30 H (9-20) mg/dL Creatinine 0.63 L (0.66-1.25) mg/dL Glucose 152 H (74-99) mg/dL POC Glucose (mg/dL) 143 H (75-99) mg/dL Calcium (8.4-10.2) mg/dL Lactate Dehydrogenase 1029 H (313-618) U/L C-Reactive Protein 25.2 H (<1.0) mg/dL 03/23/21 03/23/21 03/23/21 Range/Units 17:38 20:56 21:53 WBC (3.8-10.6) k/uL Hgb (13.0-17.5) gm/dL Hct (39.0-53.0) % Plt Count (150-450) k/uL Neutrophils # (Manual) (1.3-7.7) k/uL Lymphocytes # (1.0-4.8) k/uL Lymphocytes # (Manual) (1.0-4.8) k/uL Metamyelocytes # (Man) (0) k/uL D-Dimer (<0.60) mg/L FEU ABG pH 7.31 L (7.35-7.45) ABG pCO2 48 H (35-45) mmHg ABG pO2 39 L* (83-108) mmHg ABG HCO3 (21-25) mmol/L ABG Total CO2 25 H (19-24) mmol/L ABG O2 Saturation 67.1 L (94-97) % Sodium (137-145) mmol/L Potassium (3.5-5.1) mmol/L Carbon Dioxide (22-30) mmol/L BUN (9-20) mg/dL Creatinine (0.66-1.25) mg/dL Glucose (74-99) mg/dL POC Glucose (mg/dL) 189 H 140 H (75-99) mg/dL Calcium (8.4-10.2) mg/dL Lactate Dehydrogenase (313-618) U/L C-Reactive Protein (<1.0) mg/dL 03/23/21 03/24/21 03/24/21 Range/Units 23:44 04:30 04:30 WBC 14.3 H (3.8-10.6) k/uL Hgb (13.0-17.5) gm/dL Hct (39.0-53.0) % Plt Count 54 L (150-450) k/uL Neutrophils # (Manual) 13.20 H (1.3-7.7) k/uL Lymphocytes # (1.0-4.8) k/uL Lymphocytes # (Manual) 0.57 L (1.0-4.8) k/uL Metamyelocytes # (Man) 0.14 H (0) k/uL D-Dimer (<0.60) mg/L FEU ABG pH 7.11 L* (7.35-7.45) ABG pCO2 67 H (35-45) mmHg ABG pO2 (83-108) mmHg ABG HCO3 (21-25) mmol/L ABG Total CO2 (19-24) mmol/L ABG O2 Saturation 91.8 L (94-97) % Sodium 136 L (137-145) mmol/L Potassium (3.5-5.1) mmol/L Carbon Dioxide 20 L (22-30) mmol/L BUN 49 H (9-20) mg/dL Creatinine 1.38 H (0.66-1.25) mg/dL Glucose 200 H (74-99) mg/dL POC Glucose (mg/dL) (75-99) mg/dL Calcium 7.8 L (8.4-10.2) mg/dL Lactate Dehydrogenase 2141 H (313-618) U/L C-Reactive Protein 38.1 H (<1.0) mg/dL 03/24/21 03/24/21 03/24/21 Range/Units 04:30 05:10 05:29 WBC (3.8-10.6) k/uL Hgb (13.0-17.5) gm/dL Hct (39.0-53.0) % Plt Count (150-450) k/uL Neutrophils # (Manual) (1.3-7.7) k/uL Lymphocytes # (1.0-4.8) k/uL Lymphocytes # (Manual) (1.0-4.8) k/uL Metamyelocytes # (Man) (0) k/uL D-Dimer 1.80 H (<0.60) mg/L FEU ABG pH 7.09 L* (7.35-7.45) ABG pCO2 74 H* (35-45) mmHg ABG pO2 (83-108) mmHg ABG HCO3 (21-25) mmol/L ABG Total CO2 25 H (19-24) mmol/L ABG O2 Saturation 93.9 L (94-97) % Sodium (137-145) mmol/L Potassium 6.2 H* (3.5-5.1) mmol/L Carbon Dioxide (22-30) mmol/L BUN (9-20) mg/dL Creatinine (0.66-1.25) mg/dL Glucose (74-99) mg/dL POC Glucose (mg/dL) (75-99) mg/dL Calcium (8.4-10.2) mg/dL Lactate Dehydrogenase (313-618) U/L C-Reactive Protein (<1.0) mg/dL 03/24/21 03/24/21 03/24/21 Range/Units 06:54 08:06 08:12 WBC (3.8-10.6) k/uL Hgb (13.0-17.5) gm/dL Hct (39.0-53.0) % Plt Count (150-450) k/uL Neutrophils # (Manual) (1.3-7.7) k/uL Lymphocytes # (1.0-4.8) k/uL Lymphocytes # (Manual) (1.0-4.8) k/uL Metamyelocytes # (Man) (0) k/uL D-Dimer (<0.60) mg/L FEU ABG pH 7.22 L (7.35-7.45) ABG pCO2 68 H (35-45) mmHg ABG pO2 (83-108) mmHg ABG HCO3 28 H (21-25) mmol/L ABG Total CO2 30 H (19-24) mmol/L ABG O2 Saturation (94-97) % Sodium (137-145) mmol/L Potassium 5.4 H (3.5-5.1) mmol/L Carbon Dioxide (22-30) mmol/L BUN (9-20) mg/dL Creatinine (0.66-1.25) mg/dL Glucose (74-99) mg/dL POC Glucose (mg/dL) 177 H (75-99) mg/dL Calcium (8.4-10.2) mg/dL Lactate Dehydrogenase (313-618) U/L C-Reactive Protein (<1.0) mg/dL 03/24/21 Range/Units 11:20 WBC (3.8-10.6) k/uL Hgb (13.0-17.5) gm/dL Hct (39.0-53.0) % Plt Count (150-450) k/uL Neutrophils # (Manual) (1.3-7.7) k/uL Lymphocytes # (1.0-4.8) k/uL Lymphocytes # (Manual) (1.0-4.8) k/uL Metamyelocytes # (Man) (0) k/uL D-Dimer (<0.60) mg/L FEU ABG pH (7.35-7.45) ABG pCO2 (35-45) mmHg ABG pO2 (83-108) mmHg ABG HCO3 (21-25) mmol/L ABG Total CO2 (19-24) mmol/L ABG O2 Saturation (94-97) % Sodium (137-145) mmol/L Potassium (3.5-5.1) mmol/L Carbon Dioxide (22-30) mmol/L BUN (9-20) mg/dL Creatinine (0.66-1.25) mg/dL Glucose (74-99) mg/dL POC Glucose (mg/dL) 238 H (75-99) mg/dL Calcium (8.4-10.2) mg/dL Lactate Dehydrogenase (313-618) U/L C-Reactive Protein (<1.0) mg/dL Microbiology - Last 24 Hours (Table) 03/24/21 00:17 Sputum Culture - Preliminary Sputum 03/23/21 23:40 Urine Culture - Preliminary Urine,Catheterized Diabetes panel 03/23/21 03/24/21 03/24/21 Range/Units 13:09 04:30 05:29 Sodium 136 L 136 L (137-145) mmol/L Potassium 4.5 6.2 H* (3.5-5.1) mmol/L Chloride 103 103 (98-107) mmol/L Carbon Dioxide 24 20 L (22-30) mmol/L BUN 30 H 49 H (9-20) mg/dL Creatinine 0.63 L 1.38 H (0.66-1.25) mg/dL Glucose 152 H 200 H (74-99) mg/dL Calcium 8.7 7.8 L (8.4-10.2) mg/dL 03/24/21 Range/Units 08:12 Sodium (137-145) mmol/L Potassium 5.4 H (3.5-5.1) mmol/L Chloride (98-107) mmol/L Carbon Dioxide (22-30) mmol/L BUN (9-20) mg/dL Creatinine (0.66-1.25) mg/dL Glucose (74-99) mg/dL Calcium (8.4-10.2) mg/dL Calcium panel 03/23/21 03/24/21 Range/Units 13:09 04:30 Calcium 8.7 7.8 L (8.4-10.2) mg/dL Pituitary panel 03/23/21 03/24/21 03/24/21 Range/Units 13:09 04:30 05:29 Sodium 136 L 136 L (137-145) mmol/L Potassium 4.5 6.2 H* (3.5-5.1) mmol/L Chloride 103 103 (98-107) mmol/L Carbon Dioxide 24 20 L (22-30) mmol/L BUN 30 H 49 H (9-20) mg/dL Creatinine 0.63 L 1.38 H (0.66-1.25) mg/dL Glucose 152 H 200 H (74-99) mg/dL Calcium 8.7 7.8 L (8.4-10.2) mg/dL 03/24/21 Range/Units 08:12 Sodium (137-145) mmol/L Potassium 5.4 H (3.5-5.1) mmol/L Chloride (98-107) mmol/L Carbon Dioxide (22-30) mmol/L BUN (9-20) mg/dL Creatinine (0.66-1.25) mg/dL Glucose (74-99) mg/dL Calcium (8.4-10.2) mg/dL Adrenal panel 03/23/21 03/24/21 03/24/21 Range/Units 13:09 04:30 05:29 Sodium 136 L 136 L (137-145) mmol/L Potassium 4.5 6.2 H* (3.5-5.1) mmol/L Chloride 103 103 (98-107) mmol/L Carbon Dioxide 24 20 L (22-30) mmol/L BUN 30 H 49 H (9-20) mg/dL Creatinine 0.63 L 1.38 H (0.66-1.25) mg/dL Glucose 152 H 200 H (74-99) mg/dL Calcium 8.7 7.8 L (8.4-10.2) mg/dL 03/24/21 Range/Units 08:12 Sodium (137-145) mmol/L Potassium 5.4 H (3.5-5.1) mmol/L Chloride (98-107) mmol/L Carbon Dioxide (22-30) mmol/L BUN (9-20) mg/dL Creatinine (0.66-1.25) mg/dL Glucose (74-99) mg/dL Calcium (8.4-10.2) mg/dL Assessment and Plan Assessment: 55-year-old male with respiratory failure. We'll follow closely with you. Tentatively we will proceed with tracheostomy and PEG tube placement next week. We'll discuss further with the family prior to doing so.
[2021-03-24 12:43] LABS: ABG Base Excess 3.4 mmol/L; ABG HCO3 30 mmol/L (21-25); ABG Oxygen Saturation 96.2 % (94-97); ABG PCO2 66 mmHg (35-45); ABG PH 7.27 (7.35-7.45); ABG PO2 86 mmHg (83-108); ABG TCO2 32 mmol/L (19-24); Allen Test Performed? Yes
--- NOTE | 2021-03-24 13:08 | P.PN ---
Subjective Progress Note Date: 03/24/21 This is a 55-year-old male who was admitted for worsening shortness of breath with recent diagnosis of COVID-19 at an outpatient urgent center and is being closely monitored. Patient was recently transferred to the ICU after experiencing worsening dyspnea and inability to catch his breath while on Airvo along with nonrebreather and a stat chest x-ray was repeated showing a right- sided pneumothorax approximately 3 cm. Patient was brought immediately to the ICU and had chest tube placement by mechanics supervisor. Per nursing staff patient continued to have worsening dyspnea and was reevaluated by pulmonary and underwent mechanical ventilation and intubation. Patient is currently sedated. Pulmonary mechanics supervisor is following closely. Patient continued to have pneumothorax with repeat chest x-ray showing tension right-sided pneumothorax and ER physician inserted another chest tube with repeat chest x-ray showing clearing of the tension pneumothorax with a small amount of soft tissue air on the right chest wall with continued moderate pulmonary interstitial pneumonia noted. Multiple medical consultations following and surgery was also consulted with the possibility of tracheostomy intact PEG tube placement. Patient had been on Lovenox and current d-dimer is 1.8 and Lovenox is on hold as patient developed thrombocytopenia with a platelet count of 22. Platelets today slightly improved at [address] Carreno hematology and appreciate recommendations. Patient does have some petechia noted on the chest wall. Review of Systems: Unable to obtain as patient is currently intubated and sedated Labs: White blood count slightly elevated at 14.3, hemoglobin is 17.5, platelets are 54, d-dimer is 1.80, sodium is 136, potassium is 5.6, creatinine worsened at 1.38 and inflammatory markers are elevated as well with an LDH of 2141 and CRP is 38.1. HIIP was 0.166. Active Medications Acetaminophen (Acetaminophen Tab 325 Mg Tab) 650 mg PO Q4HR PRN PRN Reason: Fever>101 Last Admin: 03/20/21 22:03 Dose: 650 mg Documented by: Albuterol Sulfate (Albuterol Hfa Inhaler) 2 puff INHALATION RT-Q4H PRN PRN Reason: Shortness Of Breath Or Wheezing Last Admin: 03/24/21 11:07 Dose: 2 puff Documented by: Chlorhexidine Gluconate (Chlorhexidine Gluconate 15 Ml Cup) 15 ml MUCOUS MEM BID [facility] Last Admin: 03/24/21 08:37 Dose: 15 ml Documented by: Dexamethasone Sodium Phosphate (Dexamethasone Sod Phosphate 4 Mg/Ml 1 Ml Vial) 4 mg IV DAILY [facility] Hydromorphone HCl (Hydromorphone 1 Mg/Ml 1 Ml Syringe) 1 mg IVP Q3HR PRN PRN Reason: Pain Last Admin: 03/23/21 19:33 Dose: 1 mg Documented by: Propofol 1,000 mg/ IV Solution 100 mls @ 0 mls/hr IV .Q0M [facility]; Protocol Last Admin: 03/24/21 05:15 Dose: 50 mcg/kg/min, 28.74 mls/hr Documented by: Cisatracurium Besylate 200 mg/ (Sodium Chloride) 200 mls @ 5.748 mls/hr IV .Q24H [facility]; Protocol Last Titration: 03/24/21 12:10 Dose: 0 mcg/kg/min, 0 mls/hr Documented by: Norepinephrine Bitartrate 8 mg (/ Sodium Chloride) 258 mls @ 9.269 mls/hr IV .Q24H [facility]; Protocol Last Titration: 03/24/21 05:15 Dose: 0 mcg/kg/min, 0 mls/hr Documented by: Sodium Bicarbonate 150 ml/ (Dextrose/Water) 1,150 mls @ 100 mls/hr IV .[id number] [facility] Last Admin: 03/24/21 06:30 Dose: 100 mls/hr Documented by: Insulin Aspart (Insulin Aspart (Novolog) 100 Unit/Ml Vial) 0 unit SQ Q6H [facility]; Protocol Last Admin: 03/24/21 12:13 Dose: 3 unit Documented by: Insulin Detemir (Insulin Detemir (Levemir) 100 Unit/Ml Syr) 25 unit SQ HS [facility] Last Admin: 03/23/21 21:41 Dose: 25 unit Documented by: Insulin Detemir (Insulin Detemir (Levemir) 100 Unit/Ml Syr) 20 unit SQ DAILY@0700 [facility] Last Admin: 03/24/21 07:02 Dose: 20 unit Documented by: Naloxone HCl (Naloxone 0.4 Mg/Ml 1 Ml Vial) 0.2 mg IV Q2M PRN PRN Reason: Opioid Reversal Pantoprazole Sodium (Pantoprazole 40 Mg/10 Ml Vial) 40 mg IVP DAILY [facility] Objective - Vital Signs Vital signs: Vital Signs Temp 98.4 F 03/24/21 04:00 Pulse 128 H 03/24/21 08:00 Resp 36 H 03/24/21 08:00 BP 114/83 03/24/21 07:00 Pulse Ox 92 L 03/24/21 08:00 Intake & Output 03/23/21 03/24/21 03/24/21 18:59 06:59 18:59 Intake Total 225 1006.088 75 Output Total 200 320 10 Balance 25 686.088 65 Weight 89.8 kg Intake: IV 225 900 75 Sodium Chloride 0.9% 1, 225 900 75 000 ml @ 75 mls/hr IV . [id number] [facility] Rx#:[id number] Intake, IV Titration 106.088 Amount Cisatracurium 200 mg In 3.641 Sodium Chloride 0.9% 180 ml @ 1 MCG/KG/MIN 5.748 mls/hr IV .Q24H [facility] Rx#: [id number] Norepinephrine 8 mg In 2.255 Sodium Chloride 0.9% 250 ml @ 0.05 MCG/KG/MIN 9. 269 mls/hr IV .Q24H [facility] Rx#:[id number] propofoL 1,000 mg In 100.192 Empty Bag 1 bag @ Titrate IV .Q0M [facility] Rx#: [id number] Output: Chest Tube Drainage 140 Chest Tube Right 140 Urine 200 180 10 Stool 0 Other: Voiding Method Urinal Indwelling Catheter Diaper # Voids 1 0 ABP, PAP, CO, CI - Last Documented Arterial Blood Pressure 90/58 - Exam GENERAL: The patient is recently intubated on mechanical vent and sedated. Temp is 98.4F, heart rate is 128, respirations are 36, blood pressure is 90/58, oxygen saturation is 92% on 100% FiO2. HEENT: Pupils are round and equally reacting to light. EOMI. No scleral icterus. No conjunctival pallor. Normocephalic, atraumatic. No pharyngeal erythema. No thyromegaly. CARDIOVASCULAR: S1, S2 are muffled, tachycardic PULMONARY: Diminished breath sounds more so on the right than the left with some coarse rhonchi noted throughout ABDOMEN: Soft, obese, non-tender, non-distended, normoactive bowel sounds. No palpable organomegaly. Petechia noted on the chest and abdominal areas MUSCULOSKELETAL: No joint swelling or deformity. EXTREMITIES: No cyanosis, clubbing, or pedal edema. NEUROLOGICAL: Unable to assess as patient is currently intubated and sedated SKIN: Petechia noted on the upper chest and abdominal area. - Labs CBC & Chem 7: 03/24/21 04:30 03/24/21 08:12 Labs: Abnormal Lab Results - Last 24 Hours (Table) 03/23/21 03/23/21 03/23/21 Range/Units 11:25 13:09 13:09 WBC (3.8-10.6) k/uL Hgb 17.9 H (13.0-17.5) gm/dL Hct 53.1 H (39.0-53.0) % Plt Count 36 L (150-450) k/uL Neutrophils # (Manual) (1.3-7.7) k/uL Lymphocytes # 0.3 L (1.0-4.8) k/uL Lymphocytes # (Manual) (1.0-4.8) k/uL Metamyelocytes # (Man) (0) k/uL D-Dimer (<0.60) mg/L FEU ABG pH (7.35-7.45) ABG pCO2 (35-45) mmHg ABG pO2 (83-108) mmHg ABG HCO3 (21-25) mmol/L ABG Total CO2 (19-24) mmol/L ABG O2 Saturation (94-97) % Sodium 136 L (137-145) mmol/L Potassium (3.5-5.1) mmol/L Carbon Dioxide (22-30) mmol/L BUN 30 H (9-20) mg/dL Creatinine 0.63 L (0.66-1.25) mg/dL Glucose 152 H (74-99) mg/dL POC Glucose (mg/dL) 149 H (75-99) mg/dL Calcium (8.4-10.2) mg/dL Lactate Dehydrogenase 1029 H (313-618) U/L C-Reactive Protein 25.2 H (<1.0) mg/dL 03/23/21 03/23/21 03/23/21 Range/Units 13:29 17:38 20:56 WBC (3.8-10.6) k/uL Hgb (13.0-17.5) gm/dL Hct (39.0-53.0) % Plt Count (150-450) k/uL Neutrophils # (Manual) (1.3-7.7) k/uL Lymphocytes # (1.0-4.8) k/uL Lymphocytes # (Manual) (1.0-4.8) k/uL Metamyelocytes # (Man) (0) k/uL D-Dimer (<0.60) mg/L FEU ABG pH (7.35-7.45) ABG pCO2 (35-45) mmHg ABG pO2 (83-108) mmHg ABG HCO3 (21-25) mmol/L ABG Total CO2 (19-24) mmol/L ABG O2 Saturation (94-97) % Sodium (137-145) mmol/L Potassium (3.5-5.1) mmol/L Carbon Dioxide (22-30) mmol/L BUN (9-20) mg/dL Creatinine (0.66-1.25) mg/dL Glucose (74-99) mg/dL POC Glucose (mg/dL) 143 H 189 H 140 H (75-99) mg/dL Calcium (8.4-10.2) mg/dL Lactate Dehydrogenase (313-618) U/L C-Reactive Protein (<1.0) mg/dL 03/23/21 03/23/21 03/24/21 Range/Units 21:53 23:44 04:30 WBC 14.3 H (3.8-10.6) k/uL Hgb (13.0-17.5) gm/dL Hct (39.0-53.0) % Plt Count 54 L (150-450) k/uL Neutrophils # (Manual) 13.20 H (1.3-7.7) k/uL Lymphocytes # (1.0-4.8) k/uL Lymphocytes # (Manual) 0.57 L (1.0-4.8) k/uL Metamyelocytes # (Man) 0.14 H (0) k/uL D-Dimer (<0.60) mg/L FEU ABG pH 7.31 L 7.11 L* (7.35-7.45) ABG pCO2 48 H 67 H (35-45) mmHg ABG pO2 39 L* (83-108) mmHg ABG HCO3 (21-25) mmol/L ABG Total CO2 25 H (19-24) mmol/L ABG O2 Saturation 67.1 L 91.8 L (94-97) % Sodium (137-145) mmol/L Potassium (3.5-5.1) mmol/L Carbon Dioxide (22-30) mmol/L BUN (9-20) mg/dL Creatinine (0.66-1.25) mg/dL Glucose (74-99) mg/dL POC Glucose (mg/dL) (75-99) mg/dL Calcium (8.4-10.2) mg/dL Lactate Dehydrogenase (313-618) U/L C-Reactive Protein (<1.0) mg/dL 03/24/21 03/24/21 03/24/21 Range/Units 04:30 04:30 05:10 WBC (3.8-10.6) k/uL Hgb (13.0-17.5) gm/dL Hct (39.0-53.0) % Plt Count (150-450) k/uL Neutrophils # (Manual) (1.3-7.7) k/uL Lymphocytes # (1.0-4.8) k/uL Lymphocytes # (Manual) (1.0-4.8) k/uL Metamyelocytes # (Man) (0) k/uL D-Dimer 1.80 H (<0.60) mg/L FEU ABG pH 7.09 L* (7.35-7.45) ABG pCO2 74 H* (35-45) mmHg ABG pO2 (83-108) mmHg ABG HCO3 (21-25) mmol/L ABG Total CO2 25 H (19-24) mmol/L ABG O2 Saturation 93.9 L (94-97) % Sodium 136 L (137-145) mmol/L Potassium (3.5-5.1) mmol/L Carbon Dioxide 20 L (22-30) mmol/L BUN 49 H (9-20) mg/dL Creatinine 1.38 H (0.66-1.25) mg/dL Glucose 200 H (74-99) mg/dL POC Glucose (mg/dL) (75-99) mg/dL Calcium 7.8 L (8.4-10.2) mg/dL Lactate Dehydrogenase 2141 H (313-618) U/L C-Reactive Protein 38.1 H (<1.0) mg/dL 03/24/21 03/24/21 03/24/21 Range/Units 05:29 06:54 08:06 WBC (3.8-10.6) k/uL Hgb (13.0-17.5) gm/dL Hct (39.0-53.0) % Plt Count (150-450) k/uL Neutrophils # (Manual) (1.3-7.7) k/uL Lymphocytes # (1.0-4.8) k/uL Lymphocytes # (Manual) (1.0-4.8) k/uL Metamyelocytes # (Man) (0) k/uL D-Dimer (<0.60) mg/L FEU ABG pH 7.22 L (7.35-7.45) ABG pCO2 68 H (35-45) mmHg ABG pO2 (83-108) mmHg ABG HCO3 28 H (21-25) mmol/L ABG Total CO2 30 H (19-24) mmol/L ABG O2 Saturation (94-97) % Sodium (137-145) mmol/L Potassium 6.2 H* (3.5-5.1) mmol/L Carbon Dioxide (22-30) mmol/L BUN (9-20) mg/dL Creatinine (0.66-1.25) mg/dL Glucose (74-99) mg/dL POC Glucose (mg/dL) 177 H (75-99) mg/dL Calcium (8.4-10.2) mg/dL Lactate Dehydrogenase (313-618) U/L C-Reactive Protein (<1.0) mg/dL 03/24/21 Range/Units 08:12 WBC (3.8-10.6) k/uL Hgb (13.0-17.5) gm/dL Hct (39.0-53.0) % Plt Count (150-450) k/uL Neutrophils # (Manual) (1.3-7.7) k/uL Lymphocytes # (1.0-4.8) k/uL Lymphocytes # (Manual) (1.0-4.8) k/uL Metamyelocytes # (Man) (0) k/uL D-Dimer (<0.60) mg/L FEU ABG pH (7.35-7.45) ABG pCO2 (35-45) mmHg ABG pO2 (83-108) mmHg ABG HCO3 (21-25) mmol/L ABG Total CO2 (19-24) mmol/L ABG O2 Saturation (94-97) % Sodium (137-145) mmol/L Potassium 5.4 H (3.5-5.1) mmol/L Carbon Dioxide (22-30) mmol/L BUN (9-20) mg/dL Creatinine (0.66-1.25) mg/dL Glucose (74-99) mg/dL POC Glucose (mg/dL) (75-99) mg/dL Calcium (8.4-10.2) mg/dL Lactate Dehydrogenase (313-618) U/L C-Reactive Protein (<1.0) mg/dL Microbiology - Last 24 Hours (Table) 03/23/21 23:40 Urine Culture - Preliminary Urine,Catheterized Assessment and Plan Assessment: Acute hypoxic respiratory failure secondary to COVID-19 pneumonia, recently requiring mechanical ventilation and intubation Right sided pneumothorax on 03/23/2021 as noted on chest x-ray with 2 chest tube placements thrombocytopenia Acute COVID-19 pneumonia with multifocal groundglass opacities with lower lung organizing consolidation. Hyperglycemia secondary to steroids Elevated D-dimer level with no evidence of PE on CTA chest Lactic acidosis secondary to hypoxia improved now Leukopenia Acute kidney injury, improved Elevated inflammatory markers Hypertension DVT prophylaxis SCDs/Lovenox on hold for thrombocytopenia Full code Recommendations and discussion: Recommend to continue with current medications, management, and symptomatic treatment. Patient's prognosis is extremely guarded. Multiple medical consultations following. Yesterday patient had some worsening dyspnea and her stat chest x-ray showed a pneumothorax and patient was brought to the ICU for close monitoring and chest tube placement. Patient continued to have right- sided pneumothorax and repeat chest x-ray were done showing tension pneumothorax and ER physician was paged for an emergent chest tube placement with last night. Repeat chest x-ray showed no further tension pneumothorax and will continue with daily chest x-rays. Patient's respiratory status continued to deteriorate requiring mechanical intubation and is now currently on a ventilator with sedation. Patient's blood pressure is on the lower side although not requiring pressors at this time. Blood sugars continue to be variable and will continue with Accu-Cheks and current medication regimen. Patient may require insulin drip per protocol and nursing staff is aware. Patient will likely need enteral nutrition shortly and this was discussed with pulmonary mechanics supervisor. Hematology consulted as platelets continue to be low although are improving but anticoagulation is on hold at this time. Petechial rash noted on the chest wall. Patient is currently afebrile although continues to be tachycardia and tachypnea and on 100% FiO2. Surgery was also consulted for the possibility of trach and PEG tube placement sometime next week. Due to multiple complex medical issues prognosis is extremely guarded. Per mechanics supervisor family has been updated on current clinical status. Further recommendations to follow.
--- NOTE | 2021-03-24 15:39 | P.CONS ---
History of Present Illness - Reason for Consult Consult date: 03/24/21 Thrombocytopenia Requesting physician: Winsome Burrows - Chief Complaint covid - History of Present Illness Thom is a 55 year old male patient who was admitted with acute respiratory failure secondary to COVID 19 infection. On admission platelet count 22K, now greater than 50K. He is on mechanical ventilation Review of Systems ROS unobtainable: due to endotracheal tube Past Medical History Past Medical History: COPD, Hypertension History of Any Multi-Drug Resistant Organisms: None Reported Past Surgical History: Orthopedic Surgery Past Psychological History: No Psychological Hx Reported Smoking Status: Former smoker Past Alcohol Use History: None Reported Past Drug Use History: None Reported Medications and Allergies Home Medications Medication Instructions Recorded Confirmed Type amLODIPine [Norvasc] 10 mg PO HS 03/01/21 03/01/21 History lisinopriL [Zestril] 5 mg PO HS 03/01/21 03/01/21 History Allergies Allergy/AdvReac Type Severity Reaction Status Date / Time No Known Allergies Allergy Verified 03/01/21 15:07 Physical Exam Vitals: Vital Signs Temp Pulse Resp BP Pulse Ox 03/24/21 13:00 125 H 37 H 92 L 03/24/21 12:00 125 H 36 H 92 L 03/24/21 11:00 125 H 25 H 92 L 03/24/21 10:00 126 H 36 H 94 L 03/24/21 09:30 126 H 36 H 94 L 03/24/21 09:00 128 H 36 H 94 L 03/24/21 08:30 126 H 36 H 94 L 03/24/21 08:00 128 H 36 H 92 L 03/24/21 07:00 128 H 36 H 114/83 93 L 03/24/21 06:00 126 H 36 H 110/89 91 L 03/24/21 05:00 123 H 36 H 110/87 90 L 03/24/21 04:00 98.4 F 121 H 9 L 110/88 91 L 03/24/21 03:00 122 H 36 H 117/79 91 L 03/24/21 02:00 126 H 29 H 86/51 90 L 03/24/21 01:00 134 H 36 H 95/70 89 L 03/24/21 00:00 98.2 F 138 H 37 H 93/73 90 L 03/23/21 23:00 104 H 37 H 101/71 78 L 03/23/21 22:00 151 H 45 H 160/108 80 L 03/23/21 21:00 149 H 25 H 160/108 83 L 03/23/21 20:00 98.4 F 138 H 26 H 138/111 83 L 03/23/21 19:00 137 H 33 H 129/102 82 L 03/23/21 18:00 133 H 26 H 133/90 83 L 03/23/21 17:00 126 H 28 H 119/88 83 L 03/23/21 16:00 98.2 F 131 H 23 121/92 85 L Intake and Output 03/24/21 03/24/21 03/24/21 06:59 14:59 22:59 Intake Total 706.088 600.909 Output Total 320 195 Balance 386.088 405.909 Intake: IV 600 575 Dextrose 5% in Water 1, 500 000 ml @ 100 mls/hr IV . [id number] [facility] with Sodium Bicarb (1 Meq/ml) 150 ml Rx#:[id number] Sodium Chloride 0.9% 1, 600 75 000 ml @ 75 mls/hr IV . [id number] [facility] Rx#:[id number] Intake, IV Titration 106.088 25.909 Amount Cisatracurium 200 mg In 3.641 25.909 Sodium Chloride 0.9% 180 ml @ 1 MCG/KG/MIN 5.748 mls/hr IV .Q24H [facility] Rx#: [id number] Norepinephrine 8 mg In 2.255 Sodium Chloride 0.9% 250 ml @ 0.05 MCG/KG/MIN 9. 269 mls/hr IV .Q24H [facility] Rx#:[id number] propofoL 1,000 mg In 100.192 Empty Bag 1 bag @ Titrate IV .Q0M [facility] Rx#: [id number] Output: Chest Tube Drainage 140 Chest Tube Right 140 Urine 180 195 Other: Voiding Method Indwelling Catheter Indwelling Catheter # Voids 0 Weight 89.8 kg 89.8 kg ABP, PAP, CO, CI - Last 8 Hours Arterial Blood Pressure 104/65 Arterial Blood Pressure 98/62 Arterial Blood Pressure 99/60 Arterial Blood Pressure 102/62 Arterial Blood Pressure 100/62 Arterial Blood Pressure 91/59 Arterial Blood Pressure 97/60 Arterial Blood Pressure 90/58 mechanical Ventilation NAD Head NCAT Heart: Tachy Abd soft Lungs: Ventilator trace lower edema Results CBC & Chem 7: 03/24/21 04:30 03/24/21 08:12 Labs: Abnormal Lab Results - Last 24 Hours (Table) 03/23/21 03/23/21 03/23/21 Range/Units 17:38 20:56 21:53 WBC (3.8-10.6) k/uL Plt Count (150-450) k/uL Neutrophils # (Manual) (1.3-7.7) k/uL Lymphocytes # (Manual) (1.0-4.8) k/uL Metamyelocytes # (Man) (0) k/uL D-Dimer (<0.60) mg/L FEU ABG pH 7.31 L (7.35-7.45) ABG pCO2 48 H (35-45) mmHg ABG pO2 39 L* (83-108) mmHg ABG HCO3 (21-25) mmol/L ABG Total CO2 25 H (19-24) mmol/L ABG O2 Saturation 67.1 L (94-97) % Sodium (137-145) mmol/L Potassium (3.5-5.1) mmol/L Carbon Dioxide (22-30) mmol/L BUN (9-20) mg/dL Creatinine (0.66-1.25) mg/dL Glucose (74-99) mg/dL POC Glucose (mg/dL) 189 H 140 H (75-99) mg/dL Calcium (8.4-10.2) mg/dL Lactate Dehydrogenase (313-618) U/L C-Reactive Protein (<1.0) mg/dL 03/23/21 03/24/21 03/24/21 Range/Units 23:44 04:30 04:30 WBC 14.3 H (3.8-10.6) k/uL Plt Count 54 L (150-450) k/uL Neutrophils # (Manual) 13.20 H (1.3-7.7) k/uL Lymphocytes # (Manual) 0.57 L (1.0-4.8) k/uL Metamyelocytes # (Man) 0.14 H (0) k/uL D-Dimer (<0.60) mg/L FEU ABG pH 7.11 L* (7.35-7.45) ABG pCO2 67 H (35-45) mmHg ABG pO2 (83-108) mmHg ABG HCO3 (21-25) mmol/L ABG Total CO2 (19-24) mmol/L ABG O2 Saturation 91.8 L (94-97) % Sodium 136 L (137-145) mmol/L Potassium (3.5-5.1) mmol/L Carbon Dioxide 20 L (22-30) mmol/L BUN 49 H (9-20) mg/dL Creatinine 1.38 H (0.66-1.25) mg/dL Glucose 200 H (74-99) mg/dL POC Glucose (mg/dL) (75-99) mg/dL Calcium 7.8 L (8.4-10.2) mg/dL Lactate Dehydrogenase 2141 H (313-618) U/L C-Reactive Protein 38.1 H (<1.0) mg/dL 03/24/21 03/24/21 03/24/21 Range/Units 04:30 05:10 05:29 WBC (3.8-10.6) k/uL Plt Count (150-450) k/uL Neutrophils # (Manual) (1.3-7.7) k/uL Lymphocytes # (Manual) (1.0-4.8) k/uL Metamyelocytes # (Man) (0) k/uL D-Dimer 1.80 H (<0.60) mg/L FEU ABG pH 7.09 L* (7.35-7.45) ABG pCO2 74 H* (35-45) mmHg ABG pO2 (83-108) mmHg ABG HCO3 (21-25) mmol/L ABG Total CO2 25 H (19-24) mmol/L ABG O2 Saturation 93.9 L (94-97) % Sodium (137-145) mmol/L Potassium 6.2 H* (3.5-5.1) mmol/L Carbon Dioxide (22-30) mmol/L BUN (9-20) mg/dL Creatinine (0.66-1.25) mg/dL Glucose (74-99) mg/dL POC Glucose (mg/dL) (75-99) mg/dL Calcium (8.4-10.2) mg/dL Lactate Dehydrogenase (313-618) U/L C-Reactive Protein (<1.0) mg/dL 03/24/21 03/24/21 03/24/21 Range/Units 06:54 08:06 08:12 WBC (3.8-10.6) k/uL Plt Count (150-450) k/uL Neutrophils # (Manual) (1.3-7.7) k/uL Lymphocytes # (Manual) (1.0-4.8) k/uL Metamyelocytes # (Man) (0) k/uL D-Dimer (<0.60) mg/L FEU ABG pH 7.22 L (7.35-7.45) ABG pCO2 68 H (35-45) mmHg ABG pO2 (83-108) mmHg ABG HCO3 28 H (21-25) mmol/L ABG Total CO2 30 H (19-24) mmol/L ABG O2 Saturation (94-97) % Sodium (137-145) mmol/L Potassium 5.4 H (3.5-5.1) mmol/L Carbon Dioxide (22-30) mmol/L BUN (9-20) mg/dL Creatinine (0.66-1.25) mg/dL Glucose (74-99) mg/dL POC Glucose (mg/dL) 177 H (75-99) mg/dL Calcium (8.4-10.2) mg/dL Lactate Dehydrogenase (313-618) U/L C-Reactive Protein (<1.0) mg/dL 03/24/21 03/24/21 Range/Units 11:20 12:40 WBC (3.8-10.6) k/uL Plt Count (150-450) k/uL Neutrophils # (Manual) (1.3-7.7) k/uL Lymphocytes # (Manual) (1.0-4.8) k/uL Metamyelocytes # (Man) (0) k/uL D-Dimer (<0.60) mg/L FEU ABG pH 7.27 L (7.35-7.45) ABG pCO2 66 H (35-45) mmHg ABG pO2 (83-108) mmHg ABG HCO3 30 H (21-25) mmol/L ABG Total CO2 32 H (19-24) mmol/L ABG O2 Saturation (94-97) % Sodium (137-145) mmol/L Potassium (3.5-5.1) mmol/L Carbon Dioxide (22-30) mmol/L BUN (9-20) mg/dL Creatinine (0.66-1.25) mg/dL Glucose (74-99) mg/dL POC Glucose (mg/dL) 238 H (75-99) mg/dL Calcium (8.4-10.2) mg/dL Lactate Dehydrogenase (313-618) U/L C-Reactive Protein (<1.0) mg/dL Microbiology - Last 24 Hours (Table) 03/24/21 00:17 Sputum Culture - Preliminary Sputum 03/23/21 23:40 Urine Culture - Preliminary Urine,Catheterized Assessment and Plan (1) Acute respiratory failure due to COVID-19 Current Visit: Yes Status: Acute Code(s): U07.1 - COVID-19; J96.00 - ACUTE RESPIRATORY FAILURE, UNSP W HYPOXIA OR HYPERCAPNIA SNOMED Code(s): 510823658 (2) Thrombocytopenia associated with COVID-19 Current Visit: Yes Status: Acute Code(s): U07.1 - COVID-19; D69.59 - OTHER SECONDARY THROMBOCYTOPENIA SNOMED Code(s): 860439400 (3) Pneumonia due to COVID-19 virus Current Visit: Yes Status: Acute Code(s): U07.1 - COVID-19; J12.82 - Pneumonia due to coronavirus disease 2019 SNOMED Code(s): 233671227973073990 Plan: Assessment and recommendations: Thrombocytopenia Associated with COVID-19 - Secondary to infectious/inflammatory response - Monitor Coags, Hepatic Function, D-dimer, and Daily CBC/CMP - Monitor for DIC - Platelets have been trending up, they are now greater than 50k and therefore id no s/s bleeding anticoagualtion prophylaxis is recommended with increased risk of thrombolic event during covid-19 Physician attest: I have completed the full history and physical and developed the above impression and plan, agree with MICRO COMPUTER SPECIALIST dictation, dictated as a scribe.
[2021-03-24 15:47] LABS: Albumin 2.5 g/dL (3.5-5.0); Bilirubin, Delta 0.1 mg/dL (0.0-0.2); Bilirubin,Unconjugated 0.3 mg/dL (0.0-1.1); Calcium 6.9 mg/dL (8.4-10.2); Potassium 5.1 mmol/L (3.5-5.1); Total Bilirubin 0.4 mg/dL (0.2-1.3); Total Protein 5.2 g/dL (6.3-8.2)
[2021-03-24 15:51] LABS: Partial Thromboplastin Time 22.3 sec (22.0-30.0); Prothrombin Time 10.7 sec (9.0-12.0)
[2021-03-24 18:17] LABS: Glucose,Whole Blood 181 mg/dL (75-99)
[2021-03-24 18:37] LABS: Ferritin 5675.6 ng/mL (22.0-322.0)
[2021-03-25 00:02] LABS: Glucose,Whole Blood 210 mg/dL (75-99)
[2021-03-25] MEDS: INSULIN ASPART (NovoLOG) 100 UNIT/ML VIAL SQ SCH ×4 (00:19→17:45)
[2021-03-25] MEDS: CISATRACURIUM 200 MG in SODIUM CHLORIDE 0.9% 180 ML IV SCH (01:01)
[2021-03-25] MEDS ORDERED: SODIUM CHLORIDE 0.9% 1,000 ML IV ONE (01:28)
[2021-03-25 04:02] LABS: HCT 48.5 % (39.0-53.0); HGB 15.6 gm/dL (13.0-17.5); MCH 30.5 pg (25.0-35.0); MCHC 32.1 g/dL (31.0-37.0); Mean Platelet Volume 9.6; RBC 5.11 m/uL (4.30-5.90)
[2021-03-25 04:09] LABS: Platelet Count 62 k/uL (150-450)
[2021-03-25 04:26] LABS: Albumin 2.2 g/dL (3.5-5.0); Calcium 6.8 mg/dL (8.4-10.2); Potassium 4.9 mmol/L (3.5-5.1); Total Bilirubin 0.5 mg/dL (0.2-1.3); Total Protein 4.8 g/dL (6.3-8.2)
[2021-03-25 04:38] LABS: Band Neutrophils % 60 %; Lymphocytes # (M) 0.35 k/uL (1.0-4.8); Metamyelocytes # (M) 0.28 k/uL (0); Metamyelocytes % 4 %; Monocytes # (M) 0.21 k/uL (0-1.0); Neutrophils % (M) 28 %; Nucleated Red Blood Cells 0 /100 WBC (0-0); Total Cells Counted 200
[2021-03-25 04:39] LABS: Toxic Granulation Present; Toxic Vacuolation Present
[2021-03-25 04:54] LABS: ABG Base Excess 5.2 mmol/L; ABG HCO3 32 mmol/L (21-25); ABG Oxygen Saturation 92.6 % (94-97); ABG PH 7.27 (7.35-7.45); ABG PO2 72 mmHg (83-108); ABG TCO2 34 mmol/L (19-24); Allen Test Performed? Yes
[2021-03-25 04:56] LABS: ABG PCO2 71 mmHg (35-45)
[2021-03-25 05:56] LABS: Glucose,Whole Blood 179 mg/dL (75-99)
[2021-03-25] MEDS: INSULIN DETEMIR (LEVEMIR) 100 UNIT/ML SYR SQ SCH ×2 (06:10→20:18)
[2021-03-25 06:12] LABS: C Reactive Protein 36.3 mg/dL (<1.0)
[2021-03-25] MEDS: ALBUTEROL HFA INHALER INHALATION PRN ×3 (07:28→15:20)
--- NOTE | 2021-03-25 07:50 | XR ---
EXAMINATION TYPE: XR chest 1V portable DATE OF EXAM: 03/25/2021 COMPARISON: Chest x-ray 03/24/2021 HISTORY: Chest tube, intubated TECHNIQUE: Single frontal view of the chest is obtained. FINDINGS: Right-sided thoracic vent is been removed, right-sided chest tube remains in place. The [facility] jugular central venous catheter shows the distal tip near the cavoatrial junction level, endotrac heal tube and NG tube are overlying appropriate positions. Interstitium remains increased. Patchy air space disease has improved. No evident pneumothorax or sizable effusion. There is some subcutaneous e mphysema. Cardiac mediastinal silhouette is stable. Aorta is dense. Patient is rotated. IMPRESSION: There is some improvement in aeration as compared to prior exam. Correlate for edema, pn eumonia.
[2021-03-25] MEDS ORDERED: FUROSEMIDE 10 MG/ML 10 ML VIAL IV STA ×2 (08:54→08:59)
--- NOTE | 2021-03-25 09:01 | P.PN ---
Subjective Progress Note Date: 03/25/21 55-year-old male patient, diagnosed having COVID-19 infection 03/23/2021, the patient is being seen for a follow-up. Earlier this morning, the patient was on high flow oxygen with 55 L with an FiO2 of 81%. Subsequently, he became progressively more dyspneic and hypoxic and the patient also developed right-sided chest pain. At that point, he was placed on 100% nonrebreather facemask in addition to his high flow oxygen. His current pulse ox is at 85%. His high flow oxygen is running at extremity liters with an FiO2 of 90%. A chest x-ray was done and showed development of a large right-sided pneumothorax. The patient has also ongoing diffuse pulmonary infiltration involving the left lung. He is currently short of breath. The Neck. Tachycardic. Heart rate is around 147, sinus. He is afebrile. He remains on prednisone orally 40 mg by mouth daily. There is COVID-19 related pneumoni a/ARDS. The patient will be transferred to the intensive care unit. I will put a Thoravent for him. His platelet count is improving is currently up to 43. HIV antibodies have been sent and results are still pending. LDH from yesterday was 1002 with a CRP level of 26.4. His inflammatory markers remain elevated although they're not as high as earlier values in regards to his LVH. He is awake. He is conscious. His communicating. He is a bit tachypneic and his current respiratory rate in the mid 30s. IV fluids are running at the rate of 75 mL an hour of normal saline. Remains on multivitamins. Remains on restoril for sleep. He remains on Levemir insulin 40 units daily a.m. and 25 units in p.m. along with a sliding scale coverage. Afebrile. No signs of any fluid overload. \ 03/24, the patient is being seen in follow-up in intensive care unit. He is critically ill and currently intubated on a mechanical ventilator. Events from yesterday were noted. Noted initially the patient developed this moderate- sized right-sided pneumothorax. A Thoravent was inserted and it was successful and the right lung expanded. He was moved to the intensive care unit where he was kept on a combination of high flow oxygen and on the percent nonrebreather facemask. Nevertheless, overnight, his condition decompensated. He became progressively more hypoxic. He became progressively more agitated and restless. His pulse ox dropped further and his pO2 on a blood gas was down to 37. At that point, I decided to assess for intubation mechanical ventilation. The patient was intubated successfully and the patient currently has kritsen tracheal tube #8. Post intubation, the patient became hypotensive. Immediately a chest x-ray was done that showed a large tension pneumothorax. Immediately a 28- Kyrgyz chest tube was inserted in the right lung with complete reexpansion of the right chest. Note that the Thoravent is still an adequate location the right chest. He has a right IJ triple-lumen catheter in place. At this point in time, the patient is an assist-control mode at the rate of 36 with a tidal volume of 400 and FiO2 of 100% with a PEEP of 15. Chest x-ray showing diffuse bilateral pulmonary infiltrates right more than left. There is no residual pneumothorax. The right-sided chest tube is in a good location. Output from the chest tube is in the order of 80 mL since the chest tube has been inserted. Also positive air leak. The patient is currently on propofol at 50 mg/kg/m. Patient is also paralyzed with Nimbex at 1 mcg/kg per minute. He is quite successful the mechanical ventilator. Note that post chest tube insertion, the patient improved and the patient's hemodynamics improved. He was taken off pressors. Currently is receiving IV fluids at the rate of 100 mL an hour of D5 150 mEq of sodium bicarbonate. This wish the bicarb infusion was done earlier this morning as the patient was getting acidotic and he has also developed some hyperkalemia. He received also a total of 150 mEq of sodium bicarb IV push which brought his potassium from 6.2 down to 5.4. The most recent blood gas shows a pH of 7.22 with a pCO2 of 68 and pO2 of 103. His peak airway pressure is 36. In terms of COVID-19 treatment, the patient has been maintained on oral prednisone 40 mg IV daily basis. His been on steroids for more than 3 weeks for now. He will be started on enteral feeding for nutritional support. His urine output is known that of 20 mL an hour. His platelet count today is up to 54 and the patient is off Lovenox for now. The antibodies for heparin-induced thrombocytopenia was negative. The d-dimer is down to 1.8. 03/25/2021, the patient is in the intensive care unit, intubated on a mechanical ventilator, sedated and paralyzed. This occurred due to complications of COVID- 19 related pneumonia, ARDS, right-sided pneumothorax. At this point in time, the patient is sedated with propofol which is running at 50 mics of aspirin kilogram per minute and index is at 1 mcg/kg per minute. The patient is quite successful mechanical ventilator. He is an assist-control mode with permissive hypercapnia.. At the rate of 36 with a tidal volume of 400 and FiO2 of 100% with a PEEP of 14. He did have some desaturation in his FiO2 was brought up from 80% to 100%. PH is at 7.27 with a pCO2 of 71 and pO2 of 72 this was done on FiO2 of 100%. His peak airway pressures 34. His static pressures around 32. There is intermittent air leak from the chest tube. The chest x-ray showing diffuse bilateral pulmonary infiltrates consistent with ARDS and there is no evidence of any pneumothorax on today's chest x-ray. Hemodynamically, the patient is on no pressors. Nevertheless, the patient has developed an acute kidney injury. Creatinine is double since yesterday and the patient is not producing any urine output. His creatinine is up to 2.87 with a BUN of 71. I have him on a bicarb infusion to counteract his permissive hypercapnia. His potassium level is at 4.9 and his serum bicarbs at 32 and bicarb infusion is still running at 150 mEq of sodium bicarbonate the rate of 100 mL an hour. He has become somewhat alkalotic, this is essentially metabolic alkalosis. Nevertheless, the overall acid base status is still acidosis in the form of respiratory acidosis with permissive hypercapnia. His platelet count is currently at 62. He was seen by hematology oncology. Heparin-induced thrombocytopenia antibodies have been negative. Lovenox will be started on low- dose knowing that the patient has developed also an acute kidney injury. His d- dimer is down to 1.02. His inflammatory markers including LDH is down to 1212 and his CRP is also added 36. He is receiving enteral feeding for nutritional support and currently is on Nepro at the rate of 14 mL an hour. In terms of his steroids treatment, the patient hasn't placed on Decadron at a dose of 4 mg IV every 24 hours. Condition is critical. Family arrived and was given a full explanation condition. Objective - Vital Signs Vital signs: Vital Signs Temp 97.8 F 03/25/21 04:00 Pulse 134 H 03/25/21 08:00 Resp 36 H 03/25/21 08:00 BP 91/64 03/25/21 02:00 Pulse Ox 90 L 03/25/21 08:00 Intake & Output 03/24/21 03/25/21 03/25/21 18:59 06:59 18:59 Intake Total 2300.129 7119.260 197.237 Output Total 410 320 20 Balance 290.151 5299.260 177.237 Weight 89.8 kg 87.5 kg Intake: IV 1175 1100 100 Dextrose 5% in Water 1, 1100 1100 100 000 ml @ 100 mls/hr IV . [id number] ELENA with Sodium Bicarb (1 Meq/ml) 150 ml Rx#:[id number] Sodium Chloride 0.9% 1, 75 000 ml @ 75 mls/hr IV . [id number] [facility] Rx#:[id number] Intake, IV Titration 563.727 1038.260 97.237 Amount Cisatracurium 200 mg In 25.909 68.593 Sodium Chloride 0.9% 180 ml @ 1 MCG/KG/MIN 5.748 mls/hr IV .Q24H [facility] Rx#: [id number] Sodium Chloride 0.9% 1, 1000 000 ml @ 999 mls/hr IV . Q1H1M ONE Rx#:[id number] propofoL 1,000 mg In 100 178.667 97.237 Empty Bag 1 bag @ Titrate IV .Q0M [facility] Rx#: [id number] Tube Feeding 28 112 Other 30 60 Output: Chest Tube Drainage 60 Chest Tube Right 60 Urine 410 260 20 Other: Voiding Method Indwelling Catheter Indwelling Catheter Indwelling Catheter ABP, PAP, CO, CI - Last Documented Arterial Blood Pressure 100/63 - Exam GENERAL EXAM: Alert, pleasant 55-year-old gentleman, a mechanical ventilator. Sedated and paralyzed. Orogastric and orotracheal tube are both in place. HEAD: Normocephalic. EYES: Normal reaction of pupils, equal size. NOSE: Clear with pink turbinates. THROAT: No erythema or exudates. NECK: No masses, no JVD. CHEST: No chest wall deformity. LUNGS: Equal air entry with coarse crackles in the bilateral posterior bases. Breath sounds are diminished and symmetrical and the patient has a right-sided chest tube in place, a 28-Kyrgyz chest tube has been inserted successfully and there is positive air leak. Sedated and paralyzed this morning CVS: S1 and S2 normal with no audible murmur, regular rhythm. The patient is quite tachycardic, sinus ABDOMEN: No hepatosplenomegaly, normal bowel sounds, no guarding or rigidity. SPINE: No scoliosis or deformity SKIN: No rashes CENTRAL NERVOUS SYSTEM: sedated and paralyzed this morning EXTREMITIES: There is peripheral edema. No clubbing, no cyanosis. Peripheral pulses are intact. - Labs CBC & Chem 7: 03/25/21 03:50 03/25/21 03:50 Labs: Abnormal Lab Results - Last 24 Hours (Table) 03/24/21 03/24/21 03/24/21 Range/Units 04:30 11:20 12:40 Plt Count (150-450) k/uL Lymphocytes # (Manual) (1.0-4.8) k/uL Metamyelocytes # (Man) (0) k/uL Fibrinogen (200-500) mg/dL D-Dimer (<0.60) mg/L FEU ABG pH 7.27 L (7.35-7.45) ABG pCO2 66 H (35-45) mmHg ABG pO2 (83-108) mmHg ABG HCO3 30 H (21-25) mmol/L ABG Total CO2 32 H (19-24) mmol/L ABG O2 Saturation (94-97) % Sodium (137-145) mmol/L Chloride (98-107) mmol/L Carbon Dioxide (22-30) mmol/L BUN (9-20) mg/dL Creatinine (0.66-1.25) mg/dL Glucose (74-99) mg/dL POC Glucose (mg/dL) 238 H (75-99) mg/dL Calcium (8.4-10.2) mg/dL Ferritin 5675.6 H (22.0-322.0) ng/mL AST (17-59) U/L ALT (4-49) U/L Alkaline Phosphatase (38-126) U/L Lactate Dehydrogenase (313-618) U/L C-Reactive Protein (<1.0) mg/dL Total Protein (6.3-8.2) g/dL Albumin (3.5-5.0) g/dL 03/24/21 03/24/21 03/24/21 Range/Units 15:20 15:20 18:16 Plt Count (150-450) k/uL Lymphocytes # (Manual) (1.0-4.8) k/uL Metamyelocytes # (Man) (0) k/uL Fibrinogen 916 H (200-500) mg/dL D-Dimer (<0.60) mg/L FEU ABG pH (7.35-7.45) ABG pCO2 (35-45) mmHg ABG pO2 (83-108) mmHg ABG HCO3 (21-25) mmol/L ABG Total CO2 (19-24) mmol/L ABG O2 Saturation (94-97) % Sodium (137-145) mmol/L Chloride (98-107) mmol/L Carbon Dioxide (22-30) mmol/L BUN 62 H (9-20) mg/dL Creatinine 1.84 H (0.66-1.25) mg/dL Glucose 246 H (74-99) mg/dL POC Glucose (mg/dL) 181 H (75-99) mg/dL Calcium 6.9 L (8.4-10.2) mg/dL Ferritin (22.0-322.0) ng/mL AST 178 H (17-59) U/L ALT 446 H (4-49) U/L Alkaline Phosphatase 131 H (38-126) U/L Lactate Dehydrogenase (313-618) U/L C-Reactive Protein (<1.0) mg/dL Total Protein 5.2 L (6.3-8.2) g/dL Albumin 2.5 L (3.5-5.0) g/dL 03/25/21 03/25/21 03/25/21 Range/Units 00:01 03:50 03:50 Plt Count (150-450) k/uL Lymphocytes # (Manual) (1.0-4.8) k/uL Metamyelocytes # (Man) (0) k/uL Fibrinogen (200-500) mg/dL D-Dimer 1.02 H (<0.60) mg/L FEU ABG pH (7.35-7.45) ABG pCO2 (35-45) mmHg ABG pO2 (83-108) mmHg ABG HCO3 (21-25) mmol/L ABG Total CO2 (19-24) mmol/L ABG O2 Saturation (94-97) % Sodium 136 L (137-145) mmol/L Chloride 97 L (98-107) mmol/L Carbon Dioxide 32 H (22-30) mmol/L BUN 71 H (9-20) mg/dL Creatinine 2.87 H (0.66-1.25) mg/dL Glucose 231 H (74-99) mg/dL POC Glucose (mg/dL) 210 H (75-99) mg/dL Calcium 6.8 L (8.4-10.2) mg/dL Ferritin (22.0-322.0) ng/mL AST 142 H (17-59) U/L ALT 382 H (4-49) U/L Alkaline Phosphatase (38-126) U/L Lactate Dehydrogenase 1212 H (313-618) U/L C-Reactive Protein 36.3 H (<1.0) mg/dL Total Protein 4.8 L (6.3-8.2) g/dL Albumin 2.2 L (3.5-5.0) g/dL 03/25/21 03/25/21 03/25/21 Range/Units 03:50 04:50 05:55 Plt Count 62 L (150-450) k/uL Lymphocytes # (Manual) 0.35 L (1.0-4.8) k/uL Metamyelocytes # (Man) 0.28 H (0) k/uL Fibrinogen (200-500) mg/dL D-Dimer (<0.60) mg/L FEU ABG pH 7.27 L (7.35-7.45) ABG pCO2 71 H* (35-45) mmHg ABG pO2 72 L (83-108) mmHg ABG HCO3 32 H (21-25) mmol/L ABG Total CO2 34 H (19-24) mmol/L ABG O2 Saturation 92.6 L (94-97) % Sodium (137-145) mmol/L Chloride (98-107) mmol/L Carbon Dioxide (22-30) mmol/L BUN (9-20) mg/dL Creatinine (0.66-1.25) mg/dL Glucose (74-99) mg/dL POC Glucose (mg/dL) 179 H (75-99) mg/dL Calcium (8.4-10.2) mg/dL Ferritin (22.0-322.0) ng/mL AST (17-59) U/L ALT (4-49) U/L Alkaline Phosphatase (38-126) U/L Lactate Dehydrogenase (313-618) U/L C-Reactive Protein (<1.0) mg/dL Total Protein (6.3-8.2) g/dL Albumin (3.5-5.0) g/dL Microbiology - Last 24 Hours (Table) 03/24/21 00:17 Gram Stain - Preliminary Sputum Sputum Culture - Preliminary 03/23/21 23:40 Urine Culture - Preliminary Urine,Catheterized Assessment and Plan Plan: 1 Acute COVID-19 related pneumonia with diffuse bilateral pulmonary infiltrates/groundglass changes. Patient started getting symptoms approximately 5 days prior to and was diagnosed having COVID-19 infection on 03/01/2021 and a diagnosis was established at [facility]. He remains hypoxic and currently is on AirVo high flow oxygen 55 L with an FiO2 of 85%. Received Tocilizumab on 03/02/2021. Fortunately, the patient's recovery has been extremely slow. The patient has COVID-19 related pneumonia with diffuse bilateral pulmonary infiltrates and the patient has limited recovery and he was requiring high flow oxygen. Condition decompensated yesterday with development of a large right- sided pneumothorax. Initially treated with oral ventilator on intubated and placed on a mechanical ventilator requiring a 28-Kyrgyz chest tube being inserted in the right lung. The chest is well expanded and there is no residual pneumothorax. Is positive air leak. Currently intubated on a mechanical ventilator, sedated and paralyzed. On today's evaluation, the patient remains sedated and paralyzed. The chest x-ray from today showing ARDS. No evidence of any pneumothorax on the right-sided chest tube is still in place. There is positive air leak still. Blood gases was noted. We are allowing permissive hypercapnia and the patient is also on a bicarb infusion. No room for any further weaning. We'll keep him sedated and paralyzed for today. Oxygenation is quite borderline at this point in time. 2 Large right-sided pneumothorax, developed right-sided pneumothorax requiring placement of right-sided Thoravent on 03/23/2021 with re-expansion of right lung. Subsequently in the evening of 03/23/2021 patient developed recurrent right pneumothorax with tension requiring placement of #28 chest tube with re-expansion of right lung 2 Acute hypoxic respiratory failure secondary to above, patient required intuba tion and placement on mech vent on 03/23/2021, currently sedated and paralyzed on FIO2 of 100%, PEEP 14 3 Elevated inflammatory markers secondary to COVID-19 related infection/pneumonia, d-dimer is low at this point in time 4 COPD 5 Acute kidney injury, with progressive worsening renal function in the creatinine is up to 2.87 6 Hypertension 7 diabetes mellitus with steroid-induced hyperglycemia currently on Levemir insulin 8 thrombocytopenia, improving, up to 62, Lovenox remains on hold, HIIT antibodies negative 9 anemia hyperkalemia secondary to respiratory acidosis, treated with bicarb infusion and potassium level is down to 5.4 Plan: Continue vent support, no vent changes for today Keep the patient sedated and paralyzed A bolus of 1 L was given without any response in terms of urine output. We'll give him a dose of Lasix 80 mg IV push and consult nephrology Restart Lovenox at a dose of 30 mg subcu every 24 hours Continue enteral feeding Continue Decadron Monitor renal function Continue the bicarb infusion Monitor the potassium level Repeat blood. Around noontime Had a lengthy discussion with the daughter and updated her on the condition. Family arrived to the bedside yesterday and further discussion took place. Condition is critical. Prognosis is poor baseline above-mentioned comorbidities. I may consider an early tracheostomy tube on this patient probably by early next week. Meanwhile, I surgery consultation will be obtained. He may benefit from a early tracheostomy tube insertion of a PEG tube insertion. Critical care evaluation that was done more than 30 minutes. Time with Patient: Greater than 30
[2021-03-25] MEDS: ENOXAPARIN 30 MG/0.3 ML SYRINGE SQ SCH (09:30)
[2021-03-25] MEDS: CHLORHEXIDINE GLUCONATE 15 ML CUP MUCOUS MEM SCH ×2 (09:30→20:18)
[2021-03-25] MEDS: DEXAMETHASONE SOD PHOSPHATE 4 MG/ML 1 ML VIAL IV SCH (09:30)
[2021-03-25] MEDS: PANTOPRAZOLE 40 MG/10 ML VIAL IVP SCH (09:30)
[2021-03-25] MEDS: DEXTROSE 5% IN WATER 1,000 ML with SODIUM BICARB (1 MEQ/ML) 150 ML IV SCH ×3 (09:31→20:18)
--- NOTE | 2021-03-25 10:40 | P.PN ---
Progress Note - Text Progress Note Date: 03/25/21 Patient remains sedated on the ventilator. Patient is tolerating tube feeds at goal. Oxygen requirements with 100% FiO2 and 14 of PEEP. Labs noted. Low-dose Levophed has been started. Abdomen: Soft, nondistended, nontender Continue optimization of pulmonary status. Continue tube feeds at goal. Will remain on standby for possible trach and PEG next week.
[2021-03-25 11:36] LABS: ABG Base Excess 5.9 mmol/L; ABG HCO3 33 mmol/L (21-25); ABG Oxygen Saturation 91.2 % (94-97); ABG PH 7.26 (7.35-7.45); ABG PO2 68 mmHg (83-108); ABG TCO2 35 mmol/L (19-24)
[2021-03-25 11:38] LABS: ABG PCO2 74 mmHg (35-45); Allen Test Performed? no
[2021-03-25 12:26] LABS: Glucose,Whole Blood 174 mg/dL (75-99)
[2021-03-25] MEDS: MIDODRINE 5 MG TAB PO SCH ×2 (12:44→17:45)
--- NOTE | 2021-03-25 14:35 | CONS ---
CONSULTATION REASON FOR CONSULT: Renal failure. HISTORY OF PRESENT ILLNESS: Patient is a 55-year-old male who was initially admitted to the hospital on March 01 for respiratory failure. He was diagnosed with COVID pneumonia. He was initially hypoxic and was in the ICU and subsequently transferred to the floor. It appears that patient's respiratory status worsened and he was brought back to the ICU and then eventually intubated. Blood pressure had been low yesterday. Systolic blood pressure currently in the 90s occasionally dipping down into the 80s today. The patient the patient's FiO2 has been at 100%. He is currently on 14 of PEEP. He was also found to have a tension pneumothorax for which he has a chest tube in place. Patient received IV contrast on initial admission on 03/01/2021. He did not receive any IV contrast recently. His serum creatinine today it is at 2.87 and it was at 0.63 on 03/23/2021. Medication-rea, the patient is currently maintained on a bicarb drip. He did get one dose of Lasix with no significant improvement in urine output. Currently patient has an indwelling Cabrera catheter with urine output at 10-0 mL an hour. His heart rate is currently 134-135 beats per minute and this is mostly sinus tachycardia. He will be started on Levophed as well. PAST MEDICAL HISTORY: Significant for COPD, hypertension. PAST SURGICAL HISTORY: He has had orthopedic surgery. SOCIAL HISTORY: He is a former smoker. MEDICATIONS: Medications prior to admission included Zestril and Norvasc only. ALLERGIES: None. PHYSICAL EXAMINATION: On examination, currently patient is intubated. He is on the vent. The case is discussed with nursing staff. Patient is seen from the door. He is paralyzed. Urine output 0-5 an hour. Patient is tolerating tube feeds. There is some edema noted as per nursing staff. LAB: Show sodium 136, potassium 4.9, chloride 97, CO2 is 32, BUN 71, creatinine 2.87, albumin 2.2. ASSESSMENT: 1. Acute kidney injury, acute tubular necrosis, secondary to hypotension, underlying COVID pneumonia, currently oliguric. The patient may need to be started on dialysis if there is no improvement in renal function at this time. His potassium is borderline. There is no significant acidosis. We will continue to monitor on a daily basis for need for dialysis. 2. Acute hypoxic respiratory failure. 3. Respiratory acidosis with permissive hypercapnia. 4. Thrombocytopenia. 5. History of chronic obstructive pulmonary disease. 6. Large right-sided pneumothorax, currently with chest tube. PLAN: Agree with trying Lasix, if no response, patient will need to start dialysis, particularly if we are not able to oxygenate him. Thank you for this consultation. We will continue to follow the patient with you during his hospitalization. DANK / MARTHAN: [id number] /
[2021-03-25 17:35] LABS: Glucose,Whole Blood 159 mg/dL (75-99)
[2021-03-25 21:42] LABS: Calcium 6.7 mg/dL (8.4-10.2); Potassium 4.9 mmol/L (3.5-5.1)
--- NOTE | 2021-03-25 23:10 | PN ---
PROGRESS NOTE DATE OF SERVICE: 03/25/2021 This 55-year-old gentleman admitted with Covid 19 had multiple complications, being closely monitored in ICU. The patient had acute hypoxic respiratory failure. The patient also had a pneumothorax. The patient also had multifocal ground-glass opacities, multiple consultants are following the patient closely. Dr. rAnett was consulted for possible tracheostomy and PEG tube placement. According to Dr. Pruitt, the patient had features of ARDS. The patient also was on bicarb drip to counter hypercapnia. PAST MEDICAL HISTORY: Reviewed. REVIEW OF SYSTEMS: Could not be taken. CURRENT MEDICATIONS: Reviewed and include: Tylenol, Ventolin, Rocephin, dexamethasone. PHYSICAL EXAM: Patient is mechanically ventilated and sedated. Pulse 120. Blood pressure 94/52, respiration 16, temperature normal, pulse ox 92 percent. Vent settings are noted. HEENT: Conjunctivae normal. NECK: No JVD. CARDIOVASCULAR: S1, S2. RESPIRATIONS: Breath sounds diminished in the bases. A few scattered rhonchi. ABDOMEN: Soft, nontender. LEGS: Legs are no edema. No swelling. NERVOUS SYSTEM: No focal deficits. LABS: ABGs, pH are noted. pCO2 noted. WBC 7, hemoglobin 15.6. ASSESSMENT: 1. Acute hypoxic hypercarbic respiratory failure secondary to COVID-19 pneumonia with possibly ARDS on mechanical ventilation intubation. 2. Prolonged mechanical ventilation. 3. Right-sided pneumothorax on chest tubes. 4. Thrombocytopenia. 5. Acute Covid 19 pneumonia with multifocal ground-glass opacities with consolidation. 6. Hyperglycemia. 7. Elevated D-dimer. 8. Lactic acidosis. 9. Leukopenia. 10.Acute kidney injury. 11.Elevated inflammatory markers of Covid 19. 12.Hypertension. 13.FULL CODE. RECOMMENDATIONS AND DISCUSSION: In this 55-year-old gentleman who presented with multiple complex medical issues. We will monitor the patient closely. Continue the current medications, management and symptomatic treatment. Otherwise, closely follow with Dr. Pruitt. Tracheostomy and PEG tube. Otherwise continue with empiric antibiotics. The urine culture showed gram- negative bacilli. Final cultures pending at this time. The most recent chest x- ray which was reviewed personally by me showed significant persistent bilateral lesions. Further recommendations to follow. MMODL / IJN: [id number] / [facility]
[2021-03-26 00:14] LABS: Glucose,Whole Blood 172 mg/dL (75-99)
[2021-03-26] MEDS: INSULIN ASPART (NovoLOG) 100 UNIT/ML VIAL SQ SCH ×5 (00:24→23:46)
[2021-03-26 04:43] LABS: Basophils % (A) 0 %; Eosinophils % (A) 0 %; HCT 40.3 % (39.0-53.0); Lymphocytes # (A) 0.5 k/uL (1.0-4.8); Lymphocytes % (A) 5 %; MCH 29.2 pg (25.0-35.0); MCHC 31.2 g/dL (31.0-37.0); MCV 93.7 fL (80.0-100.0); Mean Platelet Volume 9.4; Monocytes # (A) 0.2 k/uL (0-1.0); Monocytes % (A) 3 %; Neutrophils # (A) 7.9 k/uL (1.3-7.7); Neutrophils % (A) 90 %; RDW 15.3 % (11.5-15.5); WBC 8.8 k/uL (3.8-10.6)
[2021-03-26 04:56] LABS: ABG Base Excess 11.1 mmol/L; ABG HCO3 37 mmol/L (21-25); ABG Oxygen Saturation 95.3 % (94-97); ABG PCO2 68 mmHg (35-45); ABG PH 7.34 (7.35-7.45); ABG PO2 82 mmHg (83-108); ABG TCO2 39 mmol/L (19-24); Allen Test Performed? Yes
[2021-03-26 04:58] LABS: Albumin 2.1 g/dL (3.5-5.0); Calcium 6.5 mg/dL (8.4-10.2); Potassium 4.4 mmol/L (3.5-5.1); Total Bilirubin 0.3 mg/dL (0.2-1.3); Total Protein 4.7 g/dL (6.3-8.2)
[2021-03-26 05:16] LABS: HGB 12.6 gm/dL (13.0-17.5); Platelet Count 72 k/uL (150-450)
[2021-03-26 05:38] LABS: C Reactive Protein 57.8 mg/dL (<1.0)
[2021-03-26] MEDS: CISATRACURIUM 200 MG in SODIUM CHLORIDE 0.9% 180 ML IV SCH ×2 (06:09→23:46)
[2021-03-26 06:15] LABS: Glucose,Whole Blood 96 mg/dL (75-99)
[2021-03-26] MEDS: INSULIN DETEMIR (LEVEMIR) 100 UNIT/ML SYR SQ SCH ×2 (06:29→18:30)
[2021-03-26] MEDS: MIDODRINE 5 MG TAB PO SCH ×3 (06:30→17:56)
[2021-03-26] MEDS: ALBUTEROL HFA INHALER INHALATION PRN ×4 (07:31→21:05)
--- NOTE | 2021-03-26 08:13 | XR ---
EXAMINATION TYPE: XR chest 1V portable DATE OF EXAM: 03/26/2021 COMPARISON: Chest x-ray 03/25/2021 HISTORY: Intubated TECHNIQUE: Single frontal view of the chest is obtained. FINDINGS: Endotracheal tube, orogastric tube, right jugular central venous catheter, right-sided shabnam st tube are stable overlying appropriate positions. Pleural parenchymal changes are similar to prior exam. Cardiac mediastinal silhouette does not show significant interval change. No sizable pneumothor ax. IMPRESSION: Findings are similar to prior exam. Correlate for possible interstitial edema, pneumonia
--- NOTE | 2021-03-26 08:46 | P.PN ---
Subjective Progress Note Date: 03/26/21 55-year-old male patient, diagnosed having COVID-19 infection 03/23/2021, the patient is being seen for a follow-up. Earlier this morning, the patient was on high flow oxygen with 55 L with an FiO2 of 81%. Subsequently, he became progressively more dyspneic and hypoxic and the patient also developed right-sided chest pain. At that point, he was placed on 100% nonrebreather facemask in addition to his high flow oxygen. His current pulse ox is at 85%. His high flow oxygen is running at extremity liters with an FiO2 of 90%. A chest x-ray was done and showed development of a large right-sided pneumothorax. The patient has also ongoing diffuse pulmonary infiltration involving the left lung. He is currently short of breath. The Neck. Tachycardic. Heart rate is around 147, sinus. He is afebrile. He remains on prednisone orally 40 mg by mouth daily. There is COVID-19 related pneumoni a/ARDS. The patient will be transferred to the intensive care unit. I will put a Thoravent for him. His platelet count is improving is currently up to 43. HIV antibodies have been sent and results are still pending. LDH from yesterday was 1002 with a CRP level of 26.4. His inflammatory markers remain elevated although they're not as high as earlier values in regards to his LVH. He is awake. He is conscious. His communicating. He is a bit tachypneic and his current respiratory rate in the mid 30s. IV fluids are running at the rate of 75 mL an hour of normal saline. Remains on multivitamins. Remains on restoril for sleep. He remains on Levemir insulin 40 units daily a.m. and 25 units in p.m. along with a sliding scale coverage. Afebrile. No signs of any fluid overload. \ 03/24, the patient is being seen in follow-up in intensive care unit. He is critically ill and currently intubated on a mechanical ventilator. Events from yesterday were noted. Noted initially the patient developed this moderate- sized right-sided pneumothorax. A Thoravent was inserted and it was successful and the right lung expanded. He was moved to the intensive care unit where he was kept on a combination of high flow oxygen and on the percent nonrebreather facemask. Nevertheless, overnight, his condition decompensated. He became progressively more hypoxic. He became progressively more agitated and restless. His pulse ox dropped further and his pO2 on a blood gas was down to 37. At that point, I decided to assess for intubation mechanical ventilation. The patient was intubated successfully and the patient currently has kristen tracheal tube #8. Post intubation, the patient became hypotensive. Immediately a chest x-ray was done that showed a large tension pneumothorax. Immediately a 28- Georgian chest tube was inserted in the right lung with complete reexpansion of the right chest. Note that the Thoravent is still an adequate location the right chest. He has a right IJ triple-lumen catheter in place. At this point in time, the patient is an assist-control mode at the rate of 36 with a tidal volume of 400 and FiO2 of 100% with a PEEP of 15. Chest x-ray showing diffuse bilateral pulmonary infiltrates right more than left. There is no residual pneumothorax. The right-sided chest tube is in a good location. Output from the chest tube is in the order of 80 mL since the chest tube has been inserted. Also positive air leak. The patient is currently on propofol at 50 mg/kg/m. Patient is also paralyzed with Nimbex at 1 mcg/kg per minute. He is quite successful the mechanical ventilator. Note that post chest tube insertion, the patient improved and the patient's hemodynamics improved. He was taken off pressors. Currently is receiving IV fluids at the rate of 100 mL an hour of D5 150 mEq of sodium bicarbonate. This wish the bicarb infusion was done earlier this morning as the patient was getting acidotic and he has also developed some hyperkalemia. He received also a total of 150 mEq of sodium bicarb IV push which brought his potassium from 6.2 down to 5.4. The most recent blood gas shows a pH of 7.22 with a pCO2 of 68 and pO2 of 103. His peak airway pressure is 36. In terms of COVID-19 treatment, the patient has been maintained on oral prednisone 40 mg IV daily basis. His been on steroids for more than 3 weeks for now. He will be started on enteral feeding for nutritional support. His urine output is known that of 20 mL an hour. His platelet count today is up to 54 and the patient is off Lovenox for now. The antibodies for heparin-induced thrombocytopenia was negative. The d-dimer is down to 1.8. 03/25/2021, the patient is in the intensive care unit, intubated on a mechanical ventilator, sedated and paralyzed. This occurred due to complications of COVID- 19 related pneumonia, ARDS, right-sided pneumothorax. At this point in time, the patient is sedated with propofol which is running at 50 mics of aspirin kilogram per minute and index is at 1 mcg/kg per minute. The patient is quite successful mechanical ventilator. He is an assist-control mode with permissive hypercapnia.. At the rate of 36 with a tidal volume of 400 and FiO2 of 100% with a PEEP of 14. He did have some desaturation in his FiO2 was brought up from 80% to 100%. PH is at 7.27 with a pCO2 of 71 and pO2 of 72 this was done on FiO2 of 100%. His peak airway pressures 34. His static pressures around 32. There is intermittent air leak from the chest tube. The chest x-ray showing diffuse bilateral pulmonary infiltrates consistent with ARDS and there is no evidence of any pneumothorax on today's chest x-ray. Hemodynamically, the patient is on no pressors. Nevertheless, the patient has developed an acute kidney injury. Creatinine is double since yesterday and the patient is not producing any urine output. His creatinine is up to 2.87 with a BUN of 71. I have him on a bicarb infusion to counteract his permissive hypercapnia. His potassium level is at 4.9 and his serum bicarbs at 32 and bicarb infusion is still running at 150 mEq of sodium bicarbonate the rate of 100 mL an hour. He has become somewhat alkalotic, this is essentially metabolic alkalosis. Nevertheless, the overall acid base status is still acidosis in the form of respiratory acidosis with permissive hypercapnia. His platelet count is currently at 62. He was seen by hematology oncology. Heparin-induced thrombocytopenia antibodies have been negative. Lovenox will be started on low- dose knowing that the patient has developed also an acute kidney injury. His d- dimer is down to 1.02. His inflammatory markers including LDH is down to 1212 and his CRP is also added 36. He is receiving enteral feeding for nutritional support and currently is on Nepro at the rate of 14 mL an hour. In terms of his steroids treatment, the patient hasn't placed on Decadron at a dose of 4 mg IV every 24 hours. Condition is critical. Family arrived and was given a full explanation condition. [id number], the patient is being seen in follow-up in the intensive care unit. He remains intubated, sedated and paralyzed. He is a case of COVID-19 related pneumonia. By ARDS and right-sided pneumothorax. This morning, he still sedated and paralyzed. Propofol still running at 50 g. Nimbex is still running at 1 mcg/kg per minute. Ventilator settings are essentially unchanged compared to yesterday with a rate of 36 and a tidal volume of 400 and FiO2 of 100% with a PEEP of 14. Peak airway pressures 34 which is essentially the same as yesterday. There is still intermittent air leak and the chest tube and output is minimal at this point in time. There is no evidence of pneumothorax on today's chest x-ray. The blood gases showed some limited improvement in oxygenation. PO2 is up to 82 with a pCO2 of 68 and a pH of 7.34. I dropped FiO2 down to 80%. At the same time, I'm going to give this patient a paralytic holiday today. In terms of his d-dimer, he is at 1.52 and he is on Lovenox 30 mg subcu daily. His inflammatory markers from today shows an LDH level of 97 7 which is improved, CRP level is up to 57.8. The patient remains on a bicarb infusion. Serum bicarb is 3060significant acidosis at this point in time. His acidosis is improved and is at 27.34 and the patient's potassium level is down to 4.4. Nevertheless, he has developed an acute kidney injury as mentioned earlier in his creatinine is at 4.59 and his urine output is order of 5 mL an hour. His net fluid balance is positive in the order of 3.1 and 3.2 L over the past 24-48 hours. As such, nephrology is on the case and the patient may be considered for hemodialysis for fluid retention. He is still requiring pressors and he is on low dose norepinephrine infusion running at 0.03 mics of aspirin kilogram per minute. The patient's platelet counts have been improving and t hey're up to 72,000. The patient also is on enteral feeding for nutritional support and the patient is receiving Nepro at the rate of 40 mL an hour which is the same as yesterday and the patient is tolerating the enteral feeding without any major issues. No other significant events otherwise for now. Objective - Vital Signs Vital signs: Vital Signs Temp 99.8 F H 03/26/21 04:00 Pulse 116 H 03/26/21 07:00 Resp 36 H 03/26/21 07:00 BP 91/63 03/26/21 05:00 Pulse Ox 94 L 03/26/21 07:00 Intake & Output 03/25/21 03/26/21 03/26/21 18:59 06:59 18:59 Intake Total 3482.187 3109.906 114 Output Total 70 352 5 Balance 8131.234 5915.906 109 Weight 90 kg Intake: IV 1200 1100 100 Dextrose 5% in Water 1, 1200 1100 100 000 ml @ 100 mls/hr IV . [id number] [facility] with Sodium Bicarb (1 Meq/ml) 150 ml Rx#:[id number] Intake, IV Titration 311.072 548.906 Amount Cisatracurium 200 mg In 167.458 Sodium Chloride 0.9% 180 ml @ 1 MCG/KG/MIN 5.748 mls/hr IV .Q24H [facility] Rx#: [id number] Norepinephrine 8 mg In 44.859 67.814 Sodium Chloride 0.9% 250 ml @ 0.05 MCG/KG/MIN 9. 269 mls/hr IV .Q24H [facility] Rx#:[id number] propofoL 1,000 mg In 266.213 313.634 Empty Bag 1 bag @ Titrate IV .Q0M [facility] Rx#: [id number] Tube Feeding 154 154 14 Other 90 120 Output: Chest Tube Drainage 200 Chest Tube Right 200 Urine 70 152 5 Other: Voiding Method Indwelling Catheter Indwelling Catheter ABP, PAP, CO, CI - Last Documented Arterial Blood Pressure 110/58 - Exam GENERAL EXAM: Alert, pleasant 55-year-old gentleman, a mechanical ventilator. Sedated and paralyzed. Orogastric and orotracheal tube are both in place. HEAD: Normocephalic. EYES: Normal reaction of pupils, equal size. NOSE: Clear with pink turbinates. THROAT: No erythema or exudates. NECK: No masses, no JVD. CHEST: No chest wall deformity. LUNGS: Equal air entry with coarse crackles in the bilateral posterior bases. Breath sounds are diminished and symmetrical and the patient has a right-sided chest tube in place, a 28-Georgian chest tube has been inserted successfully and there is positive air leak. Sedated and paralyzed this morning CVS: S1 and S2 normal with no audible murmur, regular rhythm. The patient is quite tachycardic, sinus ABDOMEN: No hepatosplenomegaly, normal bowel sounds, no guarding or rigidity. SPINE: No scoliosis or deformity SKIN: No rashes CENTRAL NERVOUS SYSTEM: sedated and paralyzed this morning EXTREMITIES: There is peripheral edema. No clubbing, no cyanosis. Peripheral pulses are intact. - Labs CBC & Chem 7: 03/26/21 04:20 03/26/21 04:20 Labs: Abnormal Lab Results - Last 24 Hours (Table) 03/25/21 03/25/21 03/25/21 Range/Units 11:35 12:25 17:34 Hgb (13.0-17.5) gm/dL Plt Count (150-450) k/uL Neutrophils # (1.3-7.7) k/uL Lymphocytes # (1.0-4.8) k/uL D-Dimer (<0.60) mg/L FEU ABG pH 7.26 L (7.35-7.45) ABG pCO2 74 H* (35-45) mmHg ABG pO2 68 L (83-108) mmHg ABG HCO3 33 H (21-25) mmol/L ABG Total CO2 35 H (19-24) mmol/L ABG O2 Saturation 91.2 L (94-97) % Sodium (137-145) mmol/L Chloride (98-107) mmol/L Carbon Dioxide (22-30) mmol/L BUN (9-20) mg/dL Creatinine (0.66-1.25) mg/dL Glucose (74-99) mg/dL POC Glucose (mg/dL) 174 H 159 H (75-99) mg/dL Calcium (8.4-10.2) mg/dL AST (17-59) U/L ALT (4-49) U/L Lactate Dehydrogenase (313-618) U/L C-Reactive Protein (<1.0) mg/dL Total Protein (6.3-8.2) g/dL Albumin (3.5-5.0) g/dL 0503/26/21 03/26/21 Range/Units 20:59 00:13 04:20 Hgb 12.6 L D (13.0-17.5) gm/dL Plt Count 72 L (150-450) k/uL Neutrophils # 7.9 H (1.3-7.7) k/uL Lymphocytes # 0.5 L (1.0-4.8) k/uL D-Dimer (<0.60) mg/L FEU ABG pH (7.35-7.45) ABG pCO2 (35-45) mmHg ABG pO2 (83-108) mmHg ABG HCO3 (21-25) mmol/L ABG Total CO2 (19-24) mmol/L ABG O2 Saturation (94-97) % Sodium 135 L (137-145) mmol/L Chloride 90 L (98-107) mmol/L Carbon Dioxide 35 H (22-30) mmol/L BUN 83 H (9-20) mg/dL Creatinine 4.33 H (0.66-1.25) mg/dL Glucose 153 H (74-99) mg/dL POC Glucose (mg/dL) 172 H (75-99) mg/dL Calcium 6.7 L (8.4-10.2) mg/dL AST (17-59) U/L ALT (4-49) U/L Lactate Dehydrogenase (313-618) U/L C-Reactive Protein (<1.0) mg/dL Total Protein (6.3-8.2) g/dL Albumin (3.5-5.0) g/dL 03/26/21 03/26/21 03/26/21 Range/Units 04:20 04:20 04:50 Hgb (13.0-17.5) gm/dL Plt Count (150-450) k/uL Neutrophils # (1.3-7.7) k/uL Lymphocytes # (1.0-4.8) k/uL D-Dimer 1.52 H (<0.60) mg/L FEU ABG pH 7.34 L (7.35-7.45) ABG pCO2 68 H (35-45) mmHg ABG pO2 82 L (83-108) mmHg ABG HCO3 37 H (21-25) mmol/L ABG Total CO2 39 H (19-24) mmol/L ABG O2 Saturation (94-97) % Sodium 135 L (137-145) mmol/L Chloride 89 L (98-107) mmol/L Carbon Dioxide 36 H (22-30) mmol/L BUN 89 H (9-20) mg/dL Creatinine 4.59 H (0.66-1.25) mg/dL Glucose 110 H (74-99) mg/dL POC Glucose (mg/dL) (75-99) mg/dL Calcium 6.5 L (8.4-10.2) mg/dL AST 68 H (17-59) U/L ALT 265 H (4-49) U/L Lactate Dehydrogenase 977 H (313-618) U/L C-Reactive Protein 57.8 H (<1.0) mg/dL Total Protein 4.7 L (6.3-8.2) g/dL Albumin 2.1 L (3.5-5.0) g/dL Microbiology - Last 24 Hours (Table) 03/23/21 23:40 Urine Culture - Preliminary Urine,Catheterized Gram Neg Bacilli Assessment and Plan Plan: 1 Acute COVID-19 related pneumonia with diffuse bilateral pulmonary infiltrates/groundglass changes. Patient started getting symptoms approximately 5 days prior to and was diagnosed having COVID-19 infection on 03/01/2021 and a diagnosis was established at [facility]. He remains hypoxic and currently is on AirVo high flow oxygen 55 L with an FiO2 of 85%. Received Tocilizumab on 03/02/2021. Fortunately, the patient's recovery has been extremely slow. The patient has COVID-19 related pneumonia with diffuse bilateral pulmonary infiltrates and the patient has limited recovery and he was requiring high flow oxygen. Condition decompensated yesterday with development of a large right- sided pneumothorax. The patient remains in ARDS. PEEP is at 14 with an FiO2 of 100%. Oxygenation is improved slightly. We'll try to wean down the FiO2 slowly down to 80% if possible. We'll also give the patient paralytic holiday. There is still persistent air leak and the right-sided chest tube which we'll be kept in place. We'll keep the sedation for now. Not ready for any further weaning at this point in time. Of significance, is development of an acute kidney injury in the creatinine is up to 4.59 2 Large right-sided pneumothorax, developed right-sided pneumothorax requiring placement of right-sided Thoravent on 03/23/2021 with re-expansion of right jaleel g. Subsequently in the evening of 03/23/2021 patient developed recurrent right pneumothorax with tension requiring placement of #28 chest tube with re- expansion of right lung 2 Acute hypoxic respiratory failure secondary to above, patient required intubation and placement on mech vent on 03/23/2021, currently sedated and paralyzed on FIO2 of 100%, PEEP 14 3 Elevated inflammatory markers secondary to COVID-19 related infection/pneumonia, d-dimer is low at this point in time 4 COPD 5 Acute kidney injury, with progressive worsening renal function in the creatinine is up to 4.59 6 Hypertension 7 diabetes mellitus with steroid-induced hyperglycemia currently on Levemir insulin 8 thrombocytopenia, improving, up to 62, Lovenox remains on hold, HIIT antibodies negative 9 anemia hyperkalemia secondary to respiratory acidosis, treated with bicarb infusion and potassium level is down to 4.4 Plan: Continue vent support, no vent changes for today temp to wean the FiO2 down to 80% and a low pulse ox is above 85% Keep the patient sedated and paralytic holiday be given today Lasix 80 mg IV every 12 hours and initiated consultation to vascular surgery for potential vascular access for any subsequent dialysis within next 24 hours Lovenox at a dose of 30 mg subcu every 24 hours Continue enteral feeding Continue Decadron Monitor renal function Discontinue the bicarb infusion Monitor the potassium level Repeat blood. Around noontime keep the chest tube in place and the patient has positive air leak Had a lengthy discussion with the daughter and updated her on the condition. Family arrived to the bedside yesterday and further discussion took place. Condition is critical. Prognosis is poor baseline above-mentioned comorbidities. I may consider an early tracheostomy tube on this patient probably by early next week. Meanwhile, I surgery consultation will be obtained. He may benefit from a early tracheostomy tube insertion of a PEG tube insertion. Critical care evaluation that was done more than 30 minutes.
[2021-03-26] MEDS: ENOXAPARIN 30 MG/0.3 ML SYRINGE SQ SCH (09:06)
[2021-03-26] MEDS: FUROSEMIDE 10 MG/ML 10 ML VIAL IV SCH ×2 (09:39→20:00)
[2021-03-26] MEDS: CHLORHEXIDINE GLUCONATE 15 ML CUP MUCOUS MEM SCH ×2 (09:39→20:00)
[2021-03-26] MEDS: PANTOPRAZOLE 40 MG/10 ML VIAL IVP SCH (09:39)
[2021-03-26] MEDS: DEXAMETHASONE SOD PHOSPHATE 4 MG/ML 1 ML VIAL IV SCH (09:39)
--- NOTE | 2021-03-26 10:19 | P.PN ---
Subjective Progress Note Date: 03/26/21 Principal diagnosis: Respiratory failure Patient remains paralyzed and sedated on the ventilator. Tolerating tube feeds at 40 mL per hour. FiO2 improved to 80% today. Remains on low-dose pressors. Objective - Vital Signs Vital signs: Vital Signs Temp 99.8 F H 03/26/21 04:00 Pulse 121 H 03/26/21 09:00 Resp 36 H 03/26/21 09:00 BP 91/63 03/26/21 05:00 Pulse Ox 89 L 03/26/21 09:00 Intake & Output 03/25/21 03/26/21 03/26/21 18:59 06:59 18:59 Intake Total 7309.698 9987.906 327.623 Output Total 70 352 20 Balance 1767.723 4212.906 307.623 Weight 90 kg Intake: IV 1200 1100 200 Dextrose 5% in Water 1, 1200 1100 200 000 ml @ 100 mls/hr IV . [id number] [facility] with Sodium Bicarb (1 Meq/ml) 150 ml Rx#:[id number] Intake, IV Titration 311.072 548.906 55.623 Amount Cisatracurium 200 mg In 167.458 16.573 Sodium Chloride 0.9% 180 ml @ 1 MCG/KG/MIN 5.748 mls/hr IV .Q24H [facility] Rx#: [id number] Norepinephrine 8 mg In 44.859 67.814 39.050 Sodium Chloride 0.9% 250 ml @ 0.05 MCG/KG/MIN 9. 269 mls/hr IV .Q24H [facility] Rx#:[id number] propofoL 1,000 mg In 266.213 313.634 Empty Bag 1 bag @ Titrate IV .Q0M [facility] Rx#: [id number] Tube Feeding 154 154 42 Other 90 120 30 Output: Chest Tube Drainage 200 Chest Tube Right 200 Urine 70 152 20 Other: Voiding Method Indwelling Catheter Indwelling Catheter Indwelling Catheter ABP, PAP, CO, CI - Last Documented Arterial Blood Pressure 114/58 - Exam Abdomen: Soft, nontender, nondistended Chest: Chest tube in place, equal breath sounds - Labs CBC & Chem 7: 03/26/21 04:20 03/26/21 04:20 Labs: Abnormal Lab Results - Last 24 Hours (Table) 03/25/21 03/25/21 03/25/21 Range/Units 11:35 12:25 17:34 Hgb (13.0-17.5) gm/dL Plt Count (150-450) k/uL Neutrophils # (1.3-7.7) k/uL Lymphocytes # (1.0-4.8) k/uL D-Dimer (<0.60) mg/L FEU ABG pH 7.26 L (7.35-7.45) ABG pCO2 74 H* (35-45) mmHg ABG pO2 68 L (83-108) mmHg ABG HCO3 33 H (21-25) mmol/L ABG Total CO2 35 H (19-24) mmol/L ABG O2 Saturation 91.2 L (94-97) % Sodium (137-145) mmol/L Chloride (98-107) mmol/L Carbon Dioxide (22-30) mmol/L BUN (9-20) mg/dL Creatinine (0.66-1.25) mg/dL Glucose (74-99) mg/dL POC Glucose (mg/dL) 174 H 159 H (75-99) mg/dL Calcium (8.4-10.2) mg/dL AST (17-59) U/L ALT (4-49) U/L Lactate Dehydrogenase (313-618) U/L C-Reactive Protein (<1.0) mg/dL Total Protein (6.3-8.2) g/dL Albumin (3.5-5.0) g/dL 03/25/21 03/26/21 03/26/21 Range/Units 20:59 00:13 04:20 Hgb 12.6 L D (13.0-17.5) gm/dL Plt Count 72 L (150-450) k/uL Neutrophils # 7.9 H (1.3-7.7) k/uL Lymphocytes # 0.5 L (1.0-4.8) k/uL D-Dimer (<0.60) mg/L FEU ABG pH (7.35-7.45) ABG pCO2 (35-45) mmHg ABG pO2 (83-108) mmHg ABG HCO3 (21-25) mmol/L ABG Total CO2 (19-24) mmol/L ABG O2 Saturation (94-97) % Sodium 135 L (137-145) mmol/L Chloride 90 L (98-107) mmol/L Carbon Dioxide 35 H (22-30) mmol/L BUN 83 H (9-20) mg/dL Creatinine 4.33 H (0.66-1.25) mg/dL Glucose 153 H (74-99) mg/dL POC Glucose (mg/dL) 172 H (75-99) mg/dL Calcium 6.7 L (8.4-10.2) mg/dL AST (17-59) U/L ALT (4-49) U/L Lactate Dehydrogenase (313-618) U/L C-Reactive Protein (<1.0) mg/dL Total Protein (6.3-8.2) g/dL Albumin (3.5-5.0) g/dL 03/26/21 03/26/21 03/26/21 Range/Units 04:20 04:20 04:50 Hgb (13.0-17.5) gm/dL Plt Count (150-450) k/uL Neutrophils # (1.3-7.7) k/uL Lymphocytes # (1.0-4.8) k/uL D-Dimer 1.52 H (<0.60) mg/L FEU ABG pH 7.34 L (7.35-7.45) ABG pCO2 68 H (35-45) mmHg ABG pO2 82 L (83-108) mmHg ABG HCO3 37 H (21-25) mmol/L ABG Total CO2 39 H (19-24) mmol/L ABG O2 Saturation (94-97) % Sodium 135 L (137-145) mmol/L Chloride 89 L (98-107) mmol/L Carbon Dioxide 36 H (22-30) mmol/L BUN 89 H (9-20) mg/dL Creatinine 4.59 H (0.66-1.25) mg/dL Glucose 110 H (74-99) mg/dL POC Glucose (mg/dL) (75-99) mg/dL Calcium 6.5 L (8.4-10.2) mg/dL AST 68 H (17-59) U/L ALT 265 H (4-49) U/L Lactate Dehydrogenase 977 H (313-618) U/L C-Reactive Protein 57.8 H (<1.0) mg/dL Total Protein 4.7 L (6.3-8.2) g/dL Albumin 2.1 L (3.5-5.0) g/dL Microbiology - Last 24 Hours (Table) 03/23/21 23:40 Urine Culture - Preliminary Urine,Catheterized Escherichia coli Klebsiella oxytoca 03/24/21 00:17 Gram Stain - Final Sputum Sputum Culture - Final Assessment and Plan (1) Acute respiratory failure due to COVID-19 Narrative/Plan: Patient showing some gradual improvement. Will remain on standby for possible tracheostomy and PEG tube placement later this week. Current Visit: Yes Status: Acute Code(s): U07.1 - COVID-19; J96.00 - ACUTE RESPIRATORY FAILURE, UNSP W HYPOXIA OR HYPERCAPNIA SNOMED Code(s): 057120602
[2021-03-26 10:57] LABS: Ferritin 2485.1 ng/mL (22.0-322.0)
[2021-03-26 12:02] LABS: Glucose,Whole Blood 73 mg/dL (75-99)
--- NOTE | 2021-03-26 12:32 | PN ---
PROGRESS NOTE The patient is seen for followup for acute kidney injury. The patient remains on the vent. His urine output remains low, although it was noted to be around 15 mL/hour for a few hours and then back down to about 5 mL/hour. The patient's FiO2 has been decreased to 80%. He remains on high PEEP. The patient is maintained on steroids as well for COVID pneumonia. He is not on any pressors. PHYSICAL EXAMINATION: On examination today, blood pressure was 165/76, heart rate 115 per minute. Patient is sedated on the vent. 1+ edema noted lower extremities. Abdomen is soft, nontender. The patient is tolerating tube feeds. LAB: Show sodium 135, potassium 4.4, chloride 89. CO2 is 36, BUN 89, creatinine 4.59, calcium 6.5, albumin 2.1, hemoglobin 12.6 g/dL. ASSESSMENT: 1. Acute kidney injury, acute tubular necrosis, currently oliguric maintained on IV Lasix 80 mg q.12 hours with no significant improvement in urine output. We will monitor on a daily basis for need for dialysis. At this point we can continue to monitor. The patient does not need emergency renal replacement therapy. 2. Acute hypoxic respiratory failure secondary to COVID pneumonia. 3. Respiratory acidosis with permissive hypercapnia, status post bicarb drip which was discontinued today. 4. Urinary tract infection with urine culture growing Escherichia coli and Klebsiella oxytoca. PLAN: Repeat labs in a.m. Avoid nephrotoxic agents. Evaluate on a daily basis for need for dialysis. MMODL / IJN: [id number] /
[2021-03-26] MEDS: HYDROmorphone 1 MG/ML 1 ML SYRINGE IVP PRN (13:47)
--- NOTE | 2021-03-26 17:39 | XR ---
EXAMINATION TYPE: XR chest 1V portable DATE OF EXAM: 03/26/2021 COMPARISON: Today HISTORY: Tube placement TECHNIQUE: Single view FINDINGS: The endotracheal tube is 8 cm from the rimma. There is bilateral pulmonary interstitial an d airspace peripheral infiltrates. There is right side chest tube with the tip at the right lung apex . No pneumothorax. There is right jugular catheter with tip in the superior vena cava. There is nasog astric tube in the stomach. IMPRESSION: Pulmonary infiltrates with some basilar mild atelectasis that is not significantly differ ent than exam this morning. No pneumothorax.
[2021-03-26 17:59] LABS: Glucose,Whole Blood 73 mg/dL (75-99)
[2021-03-26 18:09] LABS: Glucose,Whole Blood 70 mg/dL (75-99)
--- NOTE | 2021-03-26 18:12 | PN ---
PROGRESS NOTE DATE OF SERVICE: 03/26/2021 This 55-year-old gentleman who was admitted with acute hypoxic respiratory failure and COVID-19 pneumonia is being closely monitored at this time. Patient also has right- sided pneumothorax. The patient also had elevated D-dimer. The most recent chest x- ray done today which was reviewed personally by me showed extensive bilateral lung lesions. The patient also had some renal failure with creatinine worsened to 4.59. Inflammatory markers of COVID-19 are still elevated. Patient also thrombocytopenic, platelets are 72 at this time. PAST MEDICAL HISTORY: Reviewed. REVIEW OF SYSTEMS: Could not be taken. CURRENT MEDICATIONS: Reviewed include Tylenol, Ventolin, Rocephin, dexamethasone, Lovenox, Lasix. PHYSICAL EXAMINATION: Patient is mechanically sedated. Pulse is 112, blood pressure is ( ), respiration 13, temperature 97.2, pulse ox ( )% on mechanical ventilation. HEENT: Conjunctivae normal. Oral mucosa moist. NECK: No jugular venous distention. No lymph node enlargement. CARDIOVASCULAR: S1, S2, muffled. No S3, no S4, RESPIRATORY: Diminished breath sounds at the bases. A few scattered rhonchi and crackles. ABDOMEN: Soft, nontender. NERVOUS SYSTEM: Patient is mechanically sedated. Right chest tube present. LABS: At this time WBC 8.8, hemoglobin 12.3, platelets 72. Other labs are sodium 135, creatinine 4.5. Other labs are noted. ASSESSMENT: 1. Acute hypoxic hypercarbic respiratory failure secondary to COVID-19 pneumonia with possible adult respiratory distress syndrome, on mechanical ventilation and intubation. 2. Prolonged mechanical ventilation. 3. Urinary tract infection with E. coli and Klebsiella oxytoca. 4. Change in mental status, acute metabolic encephalopathy secondary to COVID-19. 5. Right-sided pneumothorax, on chest tube. 6. Elevated AST/ALT, possible hepatitis related to COVID-19. 7. Hypocalcemia. 8. Thrombocytopenia. 9. Acute COVID-19 pneumonia with multifocal ground-glass opacities with consolidation. 10.Hyperglycemia. 11.Elevated D-dimer. 12.Lactic acidosis. 13.Acute renal failure with acute tubular necrosis. 14.Leukopenia. 15.Elevated inflammatory markers of COVID-19. 16.Hypertension. 17.Hyponatremia. 18.Anemia. 19.Elevated D-dimer. RECOMMENDATIONS: Recommend to continue current management and symptomatic treatment. Otherwise, closely follow with multiple consultants. The patient is on DVT prophylaxis at this time. The patient is on empiric antibiotics. The urine culture showed E coli and Klebsiella oxytoca. The patient is rather oliguric at this time. We will continue to monitor. The prognosis guarded. Further recommendations to follow. MMODL / IJN: [id number] /
--- NOTE | 2021-03-26 18:13 | XR ---
EXAMINATION TYPE: XR chest 1V portable DATE OF EXAM: 03/26/2021 COMPARISON: Today HISTORY: Tube placement TECHNIQUE: Single view FINDINGS: Endotracheal tube is 5.5 cm from the rimma. There is nasogastric tube in the stomach. Ther e is right jugular catheter with tip in the superior vena cava. There is extensive pulmonary infiltra clovis. No pneumothorax. There is right side chest tube. IMPRESSION: Pulmonary infiltrates and atelectasis without change.
[2021-03-26] MEDS: NOREPINEPHRINE 8 MG in SODIUM CHLORIDE 0.9% 250 ML IV SCH (23:24)
[2021-03-26 23:38] LABS: Glucose,Whole Blood 54 mg/dL (75-99)
[2021-03-26] MEDS ORDERED: DEXTROSE 50% SYRINGE 50 ML IVP ONE (23:39)
[2021-03-27 00:05] LABS: Glucose,Whole Blood 139 mg/dL (75-99)
[2021-03-27 04:24] LABS: Basophils % (A) 0 %; Eosinophils % (A) 0 %; HCT 36.3 % (39.0-53.0); HGB 11.7 gm/dL (13.0-17.5); Lymphocytes # (A) 0.3 k/uL (1.0-4.8); Lymphocytes % (A) 4 %; MCH 29.7 pg (25.0-35.0); MCHC 32.2 g/dL (31.0-37.0); MCV 92.1 fL (80.0-100.0); Mean Platelet Volume 9.9; Monocytes # (A) 0.3 k/uL (0-1.0); Monocytes % (A) 3 %; Neutrophils # (A) 7.1 k/uL (1.3-7.7); Neutrophils % (A) 91 %; RBC 3.94 m/uL (4.30-5.90); RDW 15.4 % (11.5-15.5); WBC 7.8 k/uL (3.8-10.6)
[2021-03-27 04:25] LABS: Platelet Count 75 k/uL (150-450)
[2021-03-27 04:57] LABS: ABG Base Excess 10.1 mmol/L; ABG HCO3 35 mmol/L (21-25); ABG Oxygen Saturation 91.3 % (94-97); ABG PCO2 61 mmHg (35-45); ABG PH 7.37 (7.35-7.45); ABG PO2 67 mmHg (83-108); ABG TCO2 37 mmol/L (19-24); Allen Test Performed? Yes
[2021-03-27 05:02] LABS: Albumin 2.3 g/dL (3.5-5.0); Potassium 4.8 mmol/L (3.5-5.1); Total Bilirubin 0.3 mg/dL (0.2-1.3); Total Protein 4.9 g/dL (6.3-8.2)
[2021-03-27 06:05] LABS: Glucose,Whole Blood 71 mg/dL (75-99)
[2021-03-27] MEDS: INSULIN DETEMIR (LEVEMIR) 100 UNIT/ML SYR SQ SCH ×2 (06:11→19:55)
[2021-03-27] MEDS: INSULIN ASPART (NovoLOG) 100 UNIT/ML VIAL SQ SCH ×3 (06:11→18:10)
[2021-03-27 06:14] LABS: C Reactive Protein 43.6 mg/dL (<1.0); Calcium 6.4 mg/dL (8.4-10.2)
[2021-03-27] MEDS: MIDODRINE 5 MG TAB PO SCH ×3 (06:31→18:13)
[2021-03-27] MEDS: ALBUTEROL HFA INHALER INHALATION PRN ×4 (07:30→21:42)
--- NOTE | 2021-03-27 07:35 | XR ---
EXAMINATION TYPE: XR chest 1V portable DATE OF EXAM: 03/27/2021 COMPARISON: Chest x-ray 03/26/2021 HISTORY: Intubated TECHNIQUE: Single frontal view of the chest is obtained. FINDINGS: Endotracheal tube, orogastric tube, right jugular central venous catheter are stable overl katelin appropriate positions, right chest tube is again noted. There is no sizable pneumothorax. Inters titium is increased bilaterally, patchy bibasilar density is again noted. Cardiac mediastinal silhoue tte is stable. IMPRESSION: Findings similar to prior exam. Correlate for interstitial edema, pneumonia
[2021-03-27] MEDS: FUROSEMIDE 10 MG/ML 10 ML VIAL IV SCH ×2 (08:01→19:54)
[2021-03-27] MEDS: DEXAMETHASONE SOD PHOSPHATE 4 MG/ML 1 ML VIAL IV SCH (08:01)
[2021-03-27] MEDS: CHLORHEXIDINE GLUCONATE 15 ML CUP MUCOUS MEM SCH ×2 (08:01→19:54)
[2021-03-27] MEDS: PANTOPRAZOLE 40 MG/10 ML VIAL IVP SCH (08:01)
--- NOTE | 2021-03-27 08:23 | P.PN ---
Subjective Progress Note Date: 03/27/21 55-year-old male patient, diagnosed having COVID-19 infection 03/23/2021, the patient is being seen for a follow-up. Earlier this morning, the patient was on high flow oxygen with 55 L with an FiO2 of 81%. Subsequently, he became progressively more dyspneic and hypoxic and the patient also developed right-sided chest pain. At that point, he was placed on 100% nonrebreather facemask in addition to his high flow oxygen. His current pulse ox is at 85%. His high flow oxygen is running at extremity liters with an FiO2 of 90%. A chest x-ray was done and showed development of a large right-sided pneumothorax. The patient has also ongoing diffuse pulmonary infiltration involving the left lung. He is currently short of breath. The Neck. Tachycardic. Heart rate is around 147, sinus. He is afebrile. He remains on prednisone orally 40 mg by mouth daily. There is COVID-19 related pneumoni a/ARDS. The patient will be transferred to the intensive care unit. I will put a Thoravent for him. His platelet count is improving is currently up to 43. HIV antibodies have been sent and results are still pending. LDH from yesterday was 1002 with a CRP level of 26.4. His inflammatory markers remain elevated although they're not as high as earlier values in regards to his LVH. He is awake. He is conscious. His communicating. He is a bit tachypneic and his current respiratory rate in the mid 30s. IV fluids are running at the rate of 75 mL an hour of normal saline. Remains on multivitamins. Remains on restoril for sleep. He remains on Levemir insulin 40 units daily a.m. and 25 units in p.m. along with a sliding scale coverage. Afebrile. No signs of any fluid overload. \ 03/24, the patient is being seen in follow-up in intensive care unit. He is critically ill and currently intubated on a mechanical ventilator. Events from yesterday were noted. Noted initially the patient developed this moderate- sized right-sided pneumothorax. A Thoravent was inserted and it was successful and the right lung expanded. He was moved to the intensive care unit where he was kept on a combination of high flow oxygen and on the percent nonrebreather facemask. Nevertheless, overnight, his condition decompensated. He became progressively more hypoxic. He became progressively more agitated and restless. His pulse ox dropped further and his pO2 on a blood gas was down to 37. At that point, I decided to assess for intubation mechanical ventilation. The patient was intubated successfully and the patient currently has kristen tracheal tube #8. Post intubation, the patient became hypotensive. Immediately a chest x-ray was done that showed a large tension pneumothorax. Immediately a 28- [place] chest tube was inserted in the right lung with complete reexpansion of the right chest. Note that the Thoravent is still an adequate location the right chest. He has a right IJ triple-lumen catheter in place. At this point in time, the patient is an assist-control mode at the rate of 36 with a tidal volume of 400 and FiO2 of 100% with a PEEP of 15. Chest x-ray showing diffuse bilateral pulmonary infiltrates right more than left. There is no residual pneumothorax. The right-sided chest tube is in a good location. Output from the chest tube is in the order of 80 mL since the chest tube has been inserted. Also positive air leak. The patient is currently on propofol at 50 mg/kg/m. Patient is also paralyzed with Nimbex at 1 mcg/kg per minute. He is quite successful the mechanical ventilator. Note that post chest tube insertion, the patient improved and the patient's hemodynamics improved. He was taken off pressors. Currently is receiving IV fluids at the rate of 100 mL an hour of D5 150 mEq of sodium bicarbonate. This wish the bicarb infusion was done earlier this morning as the patient was getting acidotic and he has also developed some hyperkalemia. He received also a total of 150 mEq of sodium bicarb IV push which brought his potassium from 6.2 down to 5.4. The most recent blood gas shows a pH of 7.22 with a pCO2 of 68 and pO2 of 103. His peak airway pressure is 36. In terms of COVID-19 treatment, the patient has been maintained on oral prednisone 40 mg IV daily basis. His been on steroids for more than 3 weeks for now. He will be started on enteral feeding for nutritional support. His urine output is known that of 20 mL an hour. His platelet count today is up to 54 and the patient is off Lovenox for now. The antibodies for heparin-induced thrombocytopenia was negative. The d-dimer is down to 1.8. 03/25/2021, the patient is in the intensive care unit, intubated on a mechanical ventilator, sedated and paralyzed. This occurred due to complications of COVID- 19 related pneumonia, ARDS, right-sided pneumothorax. At this point in time, the patient is sedated with propofol which is running at 50 mics of aspirin kilogram per minute and index is at 1 mcg/kg per minute. The patient is quite successful mechanical ventilator. He is an assist-control mode with permissive hypercapnia.. At the rate of 36 with a tidal volume of 400 and FiO2 of 100% with a PEEP of 14. He did have some desaturation in his FiO2 was brought up from 80% to 100%. PH is at 7.27 with a pCO2 of 71 and pO2 of 72 this was done on FiO2 of 100%. His peak airway pressures 34. His static pressures around 32. There is intermittent air leak from the chest tube. The chest x-ray showing diffuse bilateral pulmonary infiltrates consistent with ARDS and there is no evidence of any pneumothorax on today's chest x-ray. Hemodynamically, the patient is on no pressors. Nevertheless, the patient has developed an acute kidney injury. Creatinine is double since yesterday and the patient is not producing any urine output. His creatinine is up to 2.87 with a BUN of 71. I have him on a bicarb infusion to counteract his permissive hypercapnia. His potassium level is at 4.9 and his serum bicarbs at 32 and bicarb infusion is still running at 150 mEq of sodium bicarbonate the rate of 100 mL an hour. He has become somewhat alkalotic, this is essentially metabolic alkalosis. Nevertheless, the overall acid base status is still acidosis in the form of respiratory acidosis with permissive hypercapnia. His platelet count is currently at 62. He was seen by hematology oncology. Heparin-induced thrombocytopenia antibodies have been negative. Lovenox will be started on low- dose knowing that the patient has developed also an acute kidney injury. His d- dimer is down to 1.02. His inflammatory markers including LDH is down to 1212 and his CRP is also added 36. He is receiving enteral feeding for nutritional support and currently is on Nepro at the rate of 14 mL an hour. In terms of his steroids treatment, the patient hasn't placed on Decadron at a dose of 4 mg IV every 24 hours. Condition is critical. Family arrived and was given a full explanation condition. 03/26/2021, the patient is being seen in follow-up in the intensive care unit. He remains intubated, sedated and paralyzed. He is a case of COVID-19 related pneumonia. By ARDS and right-sided pneumothorax. This morning, he still sedated and paralyzed. Propofol still running at 50 g. Nimbex is still running at 1 mcg/kg per minute. Ventilator settings are essentially unchanged compared to yesterday with a rate of 36 and a tidal volume of 400 and FiO2 of 100% with a PEEP of 14. Peak airway pressures 34 which is essentially the same as yesterday. There is still intermittent air leak and the chest tube and output is minimal at this point in time. There is no evidence of pneumothorax on today's chest x-ray. The blood gases showed some limited improvement in oxygenation. PO2 is up to 82 with a pCO2 of 68 and a pH of 7.34. I dropped FiO2 down to 80%. At the same time, I'm going to give this patient a paralytic holiday today. In terms of his d-dimer, he is at 1.52 and he is on Lovenox 30 mg subcu daily. His inflammatory markers from today shows an LDH level of 97 7 which is improved, CRP level is up to 57.8. The patient remains on a bicarb inf usion. Serum bicarb is 3060significant acidosis at this point in time. His acidosis is improved and is at 27.34 and the patient's potassium level is down to 4.4. Nevertheless, he has developed an acute kidney injury as mentioned earlier in his creatinine is at 4.59 and his urine output is order of 5 mL an hour. His net fluid balance is positive in the order of 3.1 and 3.2 L over the past 24-48 hours. As such, nephrology is on the case and the patient may be considered for hemodialysis for fluid retention. He is still requiring pressors and he is on low dose norepinephrine infusion running at 0.03 mics of aspirin kilogram per minute. The patient's platelet counts have been improving and they're up to 72,000. The patient also is on enteral feeding for nutritional support and the patient is receiving Nepro at the rate of 40 mL an hour which is the same as yesterday and the patient is tolerating the enteral feeding without any major issues. No other significant events otherwise for now. 03/27/2021 - seeing this patient for a follow-up. Patient remains intubated on a mechanical ventilator. This morning, the patient is on a propofol running at 60 mcg/kg per minute and the patient is also Nimbex at to make progress. Kilogram per minute.. Quite sick visit a mechanical ventilator. The patient is an assist-control mode at the rate of 36 with tidal volume of 400 and FiO2 of 80% with a PEEP of 14. Morning blood gases showed a pH of 7.37 with a pCO2 of 61 and pO2 of 67. The chest x-ray from this morning is showing no evidence of any pneumothorax. The right-sided chest tube is in place. There is still persistent episodic air leak. Output is minimal as mentioned. Nevertheless, the chest x-ray is not showing any significant pneumothorax. His consistent with COVID-19 related pneumonia/ARDS. Peak airway pressures around 31 static pressures around 28. Anorexia, the patient is on no pressors. Urine output is minimal and the patient continues to be an acute kidney injury. The creatinine from today is at 5.7 with a BUN of 111. This has been discussed with ne phrology. I will see the patient is in a positive fluid balance. The patient will need hemodialysis. Vascular surgery has been consulted yesterday and the vascular access has not been established yet. This will be important to be done today. I'm hoping that we can establish hemodialysis today. White cell count at 7.8 with a hemoglobin of 11.7. Potassium level is at 4.8. Serum bicarbs at 34. She will feeds are still running in the form of Nepro at the rate of 40 mL an hour. The patient otherwise has a right IJ triple-lumen catheter, right radial arterial line. Right-sided chest tube. Most recent LDH is at 1113 and the d-dimer is at 1.65. The patient remains on Lovenox. That examination was held yesterday in preparation for a temporary dialysis catheter insertion. Objective - Vital Signs Vital signs: Vital Signs Temp 98.7 F 03/27/21 04:00 Pulse 98 03/27/21 07:00 Resp 36 H 03/27/21 07:00 BP 91/63 03/26/21 05:00 Pulse Ox 90 L 03/27/21 07:00 Intake & Output 03/26/21 03/27/21 03/27/21 18:59 06:59 18:59 Intake Total 685.255 751.386 81.56 Output Total 230 297 20 Balance 455.255 454.386 61.56 Weight 90 kg 93.4 kg Intake: IV 200 66 6 Dextrose 5% in Water 1, 200 000 ml @ 100 mls/hr IV . [id number] ELENA with Sodium Bicarb (1 Meq/ml) 150 ml Rx#:[id number] pressure bag 66 6 Intake, IV Titration 255.255 441.386 61.56 Amount Cisatracurium 200 mg In 16.573 36.596 Sodium Chloride 0.9% 180 ml @ 1 MCG/KG/MIN 5.748 mls/hr IV .Q24H ELENA Rx#: [id number] Norepinephrine 8 mg In 39.050 34.013 Sodium Chloride 0.9% 250 ml @ 0.05 MCG/KG/MIN 9. 269 mls/hr IV .Q24H ELENA Rx#:[id number] propofoL 1,000 mg In 199.632 370.777 61.56 Empty Bag 1 bag @ Titrate IV .Q0M ELENA Rx#: [id number] Tube Feeding 140 154 14 Other 90 90 Output: Urine 230 297 20 Other: Voiding Method Indwelling Catheter Indwelling Catheter ABP, PAP, CO, CI - Last Documented Arterial Blood Pressure 97/57 - Exam GENERAL EXAM: Alert, pleasant 55-year-old gentleman, a mechanical ventilator. Sedated and paralyzed. Orogastric and orotracheal tube are both in place. HEAD: Normocephalic. EYES: Normal reaction of pupils, equal size. NOSE: Clear with pink turbinates. THROAT: No erythema or exudates. NECK: No masses, no JVD. CHEST: No chest wall deformity. LUNGS: Equal air entry with coarse crackles in the bilateral posterior bases. Breath sounds are diminished and symmetrical and the patient has a right-sided chest tube in place, a 28-[place] chest tube has been inserted successfully and there is positive air leak. Sedated and paralyzed this morning CVS: S1 and S2 normal with no audible murmur, regular rhythm. The patient is quite tachycardic, sinus ABDOMEN: No hepatosplenomegaly, normal bowel sounds, no guarding or rigidity. SPINE: No scoliosis or deformity SKIN: No rashes CENTRAL NERVOUS SYSTEM: sedated and paralyzed this morning EXTREMITIES: There is peripheral edema. No clubbing, no cyanosis. Peripheral pulses are intact. - Labs CBC & Chem 7: 03/27/21 04:15 03/27/21 04:15 Labs: Abnormal Lab Results - Last 24 Hours (Table) 03/26/21 03/26/21 03/26/21 Range/Units 04:20 12:00 17:57 RBC (4.30-5.90) m/uL Hgb (13.0-17.5) gm/dL Hct (39.0-53.0) % Plt Count (150-450) k/uL Lymphocytes # (1.0-4.8) k/uL D-Dimer (<0.60) mg/L FEU ABG pCO2 (35-45) mmHg ABG pO2 (83-108) mmHg ABG HCO3 (21-25) mmol/L ABG Total CO2 (19-24) mmol/L ABG O2 Saturation (94-97) % Sodium (137-145) mmol/L Chloride (98-107) mmol/L Carbon Dioxide (22-30) mmol/L BUN (9-20) mg/dL Creatinine (0.66-1.25) mg/dL Glucose (74-99) mg/dL POC Glucose (mg/dL) 73 L 73 L (75-99) mg/dL Calcium (8.4-10.2) mg/dL Ferritin 2485.1 H (22.0-322.0) ng/mL ALT (4-49) U/L Lactate Dehydrogenase (313-618) U/L Creatine Kinase (55-170) U/L C-Reactive Protein (<1.0) mg/dL Total Protein (6.3-8.2) g/dL Albumin (3.5-5.0) g/dL 03/26/21 03/26/21 03/27/21 Range/Units 18:08 23:37 00:04 RBC (4.30-5.90) m/uL Hgb (13.0-17.5) gm/dL Hct (39.0-53.0) % Plt Count (150-450) k/uL Lymphocytes # (1.0-4.8) k/uL D-Dimer (<0.60) mg/L FEU ABG pCO2 (35-45) mmHg ABG pO2 (83-108) mmHg ABG HCO3 (21-25) mmol/L ABG Total CO2 (19-24) mmol/L ABG O2 Saturation (94-97) % Sodium (137-145) mmol/L Chloride (98-107) mmol/L Carbon Dioxide (22-30) mmol/L BUN (9-20) mg/dL Creatinine (0.66-1.25) mg/dL Glucose (74-99) mg/dL POC Glucose (mg/dL) 70 L 54 L 139 H (75-99) mg/dL Calcium (8.4-10.2) mg/dL Ferritin (22.0-322.0) ng/mL ALT (4-49) U/L Lactate Dehydrogenase (313-618) U/L Creatine Kinase (55-170) U/L C-Reactive Protein (<1.0) mg/dL Total Protein (6.3-8.2) g/dL Albumin (3.5-5.0) g/dL 03/27/21 03/27/21 03/27/21 Range/Units 04:15 04:15 04:15 RBC 3.94 L (4.30-5.90) m/uL Hgb 11.7 L (13.0-17.5) gm/dL Hct 36.3 L (39.0-53.0) % Plt Count 75 L (150-450) k/uL Lymphocytes # 0.3 L (1.0-4.8) k/uL D-Dimer 1.65 H (<0.60) mg/L FEU ABG pCO2 (35-45) mmHg ABG pO2 (83-108) mmHg ABG HCO3 (21-25) mmol/L ABG Total CO2 (19-24) mmol/L ABG O2 Saturation (94-97) % Sodium 134 L (137-145) mmol/L Chloride 86 L (98-107) mmol/L Carbon Dioxide 34 H (22-30) mmol/L BUN 111 H* (9-20) mg/dL Creatinine 5.74 H (0.66-1.25) mg/dL Glucose 69 L (74-99) mg/dL POC Glucose (mg/dL) (75-99) mg/dL Calcium 6.4 L* (8.4-10.2) mg/dL Ferritin (22.0-322.0) ng/mL ALT 161 H (4-49) U/L Lactate Dehydrogenase 1113 H (313-618) U/L Creatine Kinase 205 H (55-170) U/L C-Reactive Protein 43.6 H (<1.0) mg/dL Total Protein 4.9 L (6.3-8.2) g/dL Albumin 2.3 L (3.5-5.0) g/dL 03/27/21 03/27/21 Range/Units 04:53 06:04 RBC (4.30-5.90) m/uL Hgb (13.0-17.5) gm/dL Hct (39.0-53.0) % Plt Count (150-450) k/uL Lymphocytes # (1.0-4.8) k/uL D-Dimer (<0.60) mg/L FEU ABG pCO2 61 H (35-45) mmHg ABG pO2 67 L (83-108) mmHg ABG HCO3 35 H (21-25) mmol/L ABG Total CO2 37 H (19-24) mmol/L ABG O2 Saturation 91.3 L (94-97) % Sodium (137-145) mmol/L Chloride (98-107) mmol/L Carbon Dioxide (22-30) mmol/L BUN (9-20) mg/dL Creatinine (0.66-1.25) mg/dL Glucose (74-99) mg/dL POC Glucose (mg/dL) 71 L (75-99) mg/dL Calcium (8.4-10.2) mg/dL Ferritin (22.0-322.0) ng/mL ALT (4-49) U/L Lactate Dehydrogenase (313-618) U/L Creatine Kinase (55-170) U/L C-Reactive Protein (<1.0) mg/dL Total Protein (6.3-8.2) g/dL Albumin (3.5-5.0) g/dL Microbiology - Last 24 Hours (Table) 03/23/21 23:40 Urine Culture - Final Urine,Catheterized Escherichia coli Klebsiella oxytoca 03/24/21 00:17 Gram Stain - Final Sputum Sputum Culture - Final Assessment and Plan Plan: 1 Acute COVID-19 related pneumonia with diffuse bilateral pulmonary infiltrates/ groundglass changes. Patient started getting symptoms approximately 5 days prior to and was diagnosed having COVID-19 infection on 03/01/2021 and a diagnosis was established at [facility] . Received Tocilizumab on 03/02/2021. The patient's course was further complicated by development of ventilator dependent respiratory failure and the patient has been intubated since 03/23/2021. He remains sedated. He remains paralyzed. Course was further complicated by development of a right-sided pneumothorax requiring a right-sided chest tube insertion. His course was further complicated by development of an acute kidney injury with progressive worsening in her renal function. Will need dialysis today. Right-sided chest tube in place. Right lung is well expanded. 2 Large right-sided pneumothorax, developed right-sided pneumothorax requiring initially placement of right-sided Thoravent on 03/23/2021 with re-expansion of right lung. Subsequently in the evening of 03/23/2021 patient developed recurrent right pneumothorax with tension requiring placement of #28 chest tube with re-expansion of right lung and there is persistent intermittent air leak 2 Acute hypoxic respiratory failure secondary to above, patient required intubation and placement on [facility] vent on 03/23/2021, currently sedated and paralyzed on FIO2 of 80%, PEEP 14 3 Elevated inflammatory markers secondary to COVID-19 related infection/pneumonia, d-dimer is low at this point in time 4 COPD 5 Acute kidney injury, with progressive worsening renal function in the creatinine is up to 5.7 6 Hypertension 7 diabetes mellitus with steroid-induced hyperglycemia currently on Levemir insulin 8 thrombocytopenia, improving, up to 75, Lovenox remains on hold, HIIT antibodies negative 9 anemia 10 hyperkalemia secondary to respiratory acidosis, treated with bicarb infusion and potassium level is down to 4.8 currently the patient is off the bicarb infusion. Plan: Continue vent support, no vent changes for today Keep the patient sedated and paralytic holiday be given, and I'm hoping that we are going to illuminate the paralytics today Lasix 80 mg IV every 12 hours and initiated consultation to vascular surgery for potential vascular access for any subsequent dialysis within next 24 hours Lovenox at a dose of 30 mg subcu every 24 hours, currently on hold and need for vascular access for dialysis [facility] vascular surgery for access Initiated dialysis today Continue enteral feeding Continue Decadron Monitor renal function Had a lengthy discussion with the daughter and updated her on the condition. Family arrived to the bedside yesterday and further discussion took place. Condition is critical. Prognosis is poor baseline above-mentioned comorbidities. I may consider an early tracheostomy tube on this patient probably by early next week. Meanwhile, I surgery consultation will be obtained. He may benefit from a early tracheostomy tube insertion of a PEG tube insertion. Critical care evaluation that was done more than 30 minutes. Time with Patient: Greater than 30
[2021-03-27] MEDS: ENOXAPARIN 30 MG/0.3 ML SYRINGE SQ SCH (08:29)
--- NOTE | 2021-03-27 09:35 | P.PN ---
Subjective Progress Note Date: 03/27/21 Principal diagnosis: Respiratory failure Patient remains on the ventilator. He is on both propofol and Nimbex. Then settings similar to yesterday with 80% FiO2 and 14 of PEEP. He will begin hemodialysis. Objective - Vital Signs Vital signs: Vital Signs Temp 97.6 F 03/27/21 08:00 Pulse 102 H 03/27/21 09:00 Resp 36 H 03/27/21 09:00 BP 91/63 03/27/21 08:00 Pulse Ox 91 L 03/27/21 09:00 Intake & Output 03/26/21 03/27/21 03/27/21 18:59 06:59 18:59 Intake Total 685.255 751.386 159.56 Output Total 230 297 144 Balance 455.255 454.386 15.56 Weight 90 kg 93.4 kg Intake: IV 200 66 12 Dextrose 5% in Water 1, 200 000 ml @ 100 mls/hr IV . [id number] [facility] with Sodium Bicarb (1 Meq/ml) 150 ml Rx#:[id number] pressure bag 66 12 Intake, IV Titration 255.255 441.386 61.56 Amount Cisatracurium 200 mg In 16.573 36.596 Sodium Chloride 0.9% 180 ml @ 1 MCG/KG/MIN 5.748 mls/hr IV .Q24H [facility] Rx#: [id number] Norepinephrine 8 mg In 39.050 34.013 Sodium Chloride 0.9% 250 ml @ 0.05 MCG/KG/MIN 9. 269 mls/hr IV .Q24H [facility] Rx#:[id number] propofoL 1,000 mg In 199.632 370.777 61.56 Empty Bag 1 bag @ Titrate IV .Q0M E[facility] Rx#: [id number] Tube Feeding 140 154 56 Other 90 90 30 Output: Chest Tube Drainage 0 Chest Tube Right 0 Urine 230 297 144 Other: Voiding Method Indwelling Catheter Indwelling Catheter ABP, PAP, CO, CI - Last Documented Arterial Blood Pressure 140/65 - Exam Abdomen: Soft, nontender, nondistended - Labs CBC & Chem 7: 03/27/21 04:15 03/27/21 04:15 Labs: Abnormal Lab Results - Last 24 Hours (Table) 03/26/21 03/26/21 03/26/21 Range/Units 04:20 12:00 17:57 RBC (4.30-5.90) m/uL Hgb (13.0-17.5) gm/dL Hct (39.0-53.0) % Plt Count (150-450) k/uL Lymphocytes # (1.0-4.8) k/uL D-Dimer (<0.60) mg/L FEU ABG pCO2 (35-45) mmHg ABG pO2 (83-108) mmHg ABG HCO3 (21-25) mmol/L ABG Total CO2 (19-24) mmol/L ABG O2 Saturation (94-97) % Sodium (137-145) mmol/L Chloride (98-107) mmol/L Carbon Dioxide (22-30) mmol/L BUN (9-20) mg/dL Creatinine (0.66-1.25) mg/dL Glucose (74-99) mg/dL POC Glucose (mg/dL) 73 L 73 L (75-99) mg/dL Calcium (8.4-10.2) mg/dL Ferritin 2485.1 H (22.0-322.0) ng/mL ALT (4-49) U/L Lactate Dehydrogenase (313-618) U/L Creatine Kinase (55-170) U/L C-Reactive Protein (<1.0) mg/dL Total Protein (6.3-8.2) g/dL Albumin (3.5-5.0) g/dL 03/26/21 03/26/21 03/27/21 Range/Units 18:08 23:37 00:04 RBC (4.30-5.90) m/uL Hgb (13.0-17.5) gm/dL Hct (39.0-53.0) % Plt Count (150-450) k/uL Lymphocytes # (1.0-4.8) k/uL D-Dimer (<0.60) mg/L FEU ABG pCO2 (35-45) mmHg ABG pO2 (83-108) mmHg ABG HCO3 (21-25) mmol/L ABG Total CO2 (19-24) mmol/L ABG O2 Saturation (94-97) % Sodium (137-145) mmol/L Chloride (98-107) mmol/L Carbon Dioxide (22-30) mmol/L BUN (9-20) mg/dL Creatinine (0.66-1.25) mg/dL Glucose (74-99) mg/dL POC Glucose (mg/dL) 70 L 54 L 139 H (75-99) mg/dL Calcium (8.4-10.2) mg/dL Ferritin (22.0-322.0) ng/mL ALT (4-49) U/L Lactate Dehydrogenase (313-618) U/L Creatine Kinase (55-170) U/L C-Reactive Protein (<1.0) mg/dL Total Protein (6.3-8.2) g/dL Albumin (3.5-5.0) g/dL 03/27/21 03/27/21 03/27/21 Range/Units 04:15 04:15 04:15 RBC 3.94 L (4.30-5.90) m/uL Hgb 11.7 L (13.0-17.5) gm/dL Hct 36.3 L (39.0-53.0) % Plt Count 75 L (150-450) k/uL Lymphocytes # 0.3 L (1.0-4.8) k/uL D-Dimer 1.65 H (<0.60) mg/L FEU ABG pCO2 (35-45) mmHg ABG pO2 (83-108) mmHg ABG HCO3 (21-25) mmol/L ABG Total CO2 (19-24) mmol/L ABG O2 Saturation (94-97) % Sodium 134 L (137-145) mmol/L Chloride 86 L (98-107) mmol/L Carbon Dioxide 34 H (22-30) mmol/L BUN 111 H* (9-20) mg/dL Creatinine 5.74 H (0.66-1.25) mg/dL Glucose 69 L (74-99) mg/dL POC Glucose (mg/dL) (75-99) mg/dL Calcium 6.4 L* (8.4-10.2) mg/dL Ferritin (22.0-322.0) ng/mL ALT 161 H (4-49) U/L Lactate Dehydrogenase 1113 H (313-618) U/L Creatine Kinase 205 H (55-170) U/L C-Reactive Protein 43.6 H (<1.0) mg/dL Total Protein 4.9 L (6.3-8.2) g/dL Albumin 2.3 L (3.5-5.0) g/dL 03/27/21 03/27/21 Range/Units 04:53 06:04 RBC (4.30-5.90) m/uL Hgb (13.0-17.5) gm/dL Hct (39.0-53.0) % Plt Count (150-450) k/uL Lymphocytes # (1.0-4.8) k/uL D-Dimer (<0.60) mg/L FEU ABG pCO2 61 H (35-45) mmHg ABG pO2 67 L (83-108) mmHg ABG HCO3 35 H (21-25) mmol/L ABG Total CO2 37 H (19-24) mmol/L ABG O2 Saturation 91.3 L (94-97) % Sodium (137-145) mmol/L Chloride (98-107) mmol/L Carbon Dioxide (22-30) mmol/L BUN (9-20) mg/dL Creatinine (0.66-1.25) mg/dL Glucose (74-99) mg/dL POC Glucose (mg/dL) 71 L (75-99) mg/dL Calcium (8.4-10.2) mg/dL Ferritin (22.0-322.0) ng/mL ALT (4-49) U/L Lactate Dehydrogenase (313-618) U/L Creatine Kinase (55-170) U/L C-Reactive Protein (<1.0) mg/dL Total Protein (6.3-8.2) g/dL Albumin (3.5-5.0) g/dL Microbiology - Last 24 Hours (Table) 03/23/21 23:40 Urine Culture - Final Urine,Catheterized Escherichia coli Klebsiella oxytoca 03/24/21 00:17 Gram Stain - Final Sputum Sputum Culture - Final Assessment and Plan (1) Acute respiratory failure due to COVID-19 Narrative/Plan: Overall patient without significant changes since yesterday. Continue tube feeds at goal. Initiate hemodialysis. Possible trach and PEG later this week. Current Visit: Yes Status: Acute Code(s): U07.1 - COVID-19; J96.00 - ACUTE RESPIRATORY FAILURE, UNSP W HYPOXIA OR HYPERCAPNIA SNOMED Code(s): 413591936
[2021-03-27] MEDS: CISATRACURIUM 200 MG in SODIUM CHLORIDE 0.9% 180 ML IV SCH (10:12)
--- NOTE | 2021-03-27 11:30 | P.GSCN ---
History of Present Illness History of present illness: 55-year-old gentleman, patient has history of acute kidney injury, and high PEEP COPD, positive for: Pneumonia patient also has chest tube due to pneumothorax. I was consulted for placement of the dialysis catheter. Patient has been of 18 and creatinine is 4.59 Neck examination neck is supple patient has been intubated bilateral crackles the lung bases Abdomen soft nontender vascular examination femorals are 1+ bilateral Plan is placement of the dialysis catheter risk and complication discussed Past Medical History Past Medical History: COPD, Hypertension History of Any Multi-Drug Resistant Organisms: None Reported Past Surgical History: Orthopedic Surgery Past Psychological History: No Psychological Hx Reported Smoking Status: Former smoker Past Alcohol Use History: None Reported Past Drug Use History: None Reported Medications and Allergies Home Medications Medication Instructions Recorded Confirmed Type amLODIPine [Norvasc] 10 mg PO HS 03/01/21 03/01/21 History lisinopriL [Zestril] 5 mg PO HS 03/01/21 03/01/21 History Allergies Allergy/AdvReac Type Severity Reaction Status Date / Time No Known Allergies Allergy Verified 03/01/21 15:07 Surgical - Exam Vital Signs Temp Pulse Resp BP Pulse Ox 98.3 F 129 H 30 H 151/88 88 L 03/01/21 13:36 03/01/21 13:36 03/01/21 13:36 03/01/21 13:36 03/01/21 13:36 Results - Labs 03/27/21 04:15 03/27/21 04:15 Abnormal Lab Results - Last 24 Hours (Table) 03/26/21 03/26/21 03/26/21 Range/Units 12:00 17:57 18:08 RBC (4.30-5.90) m/uL Hgb (13.0-17.5) gm/dL Hct (39.0-53.0) % Plt Count (150-450) k/uL Lymphocytes # (1.0-4.8) k/uL D-Dimer (<0.60) mg/L FEU ABG pCO2 (35-45) mmHg ABG pO2 (83-108) mmHg ABG HCO3 (21-25) mmol/L ABG Total CO2 (19-24) mmol/L ABG O2 Saturation (94-97) % Sodium (137-145) mmol/L Chloride (98-107) mmol/L Carbon Dioxide (22-30) mmol/L BUN (9-20) mg/dL Creatinine (0.66-1.25) mg/dL Glucose (74-99) mg/dL POC Glucose (mg/dL) 73 L 73 L 70 L (75-99) mg/dL Calcium (8.4-10.2) mg/dL ALT (4-49) U/L Lactate Dehydrogenase (313-618) U/L Creatine Kinase (55-170) U/L C-Reactive Protein (<1.0) mg/dL Total Protein (6.3-8.2) g/dL Albumin (3.5-5.0) g/dL 03/26/21 03/27/21 03/27/21 Range/Units 23:37 00:04 04:15 RBC 3.94 L (4.30-5.90) m/uL Hgb 11.7 L (13.0-17.5) gm/dL Hct 36.3 L (39.0-53.0) % Plt Count 75 L (150-450) k/uL Lymphocytes # 0.3 L (1.0-4.8) k/uL D-Dimer (<0.60) mg/L FEU ABG pCO2 (35-45) mmHg ABG pO2 (83-108) mmHg ABG HCO3 (21-25) mmol/L ABG Total CO2 (19-24) mmol/L ABG O2 Saturation (94-97) % Sodium (137-145) mmol/L Chloride (98-107) mmol/L Carbon Dioxide (22-30) mmol/L BUN (9-20) mg/dL Creatinine (0.66-1.25) mg/dL Glucose (74-99) mg/dL POC Glucose (mg/dL) 54 L 139 H (75-99) mg/dL Calcium (8.4-10.2) mg/dL ALT (4-49) U/L Lactate Dehydrogenase (313-618) U/L Creatine Kinase (55-170) U/L C-Reactive Protein (<1.0) mg/dL Total Protein (6.3-8.2) g/dL Albumin (3.5-5.0) g/dL 03/27/21 03/27/21 03/27/21 Range/Units 04:15 04:15 04:53 RBC (4.30-5.90) m/uL Hgb (13.0-17.5) gm/dL Hct (39.0-53.0) % Plt Count (150-450) k/uL Lymphocytes # (1.0-4.8) k/uL D-Dimer 1.65 H (<0.60) mg/L FEU ABG pCO2 61 H (35-45) mmHg ABG pO2 67 L (83-108) mmHg ABG HCO3 35 H (21-25) mmol/L ABG Total CO2 37 H (19-24) mmol/L ABG O2 Saturation 91.3 L (94-97) % Sodium 134 L (137-145) mmol/L Chloride 86 L (98-107) mmol/L Carbon Dioxide 34 H (22-30) mmol/L BUN 111 H* (9-20) mg/dL Creatinine 5.74 H (0.66-1.25) mg/dL Glucose 69 L (74-99) mg/dL POC Glucose (mg/dL) (75-99) mg/dL Calcium 6.4 L* (8.4-10.2) mg/dL ALT 161 H (4-49) U/L Lactate Dehydrogenase 1113 H (313-618) U/L Creatine Kinase 205 H (55-170) U/L C-Reactive Protein 43.6 H (<1.0) mg/dL Total Protein 4.9 L (6.3-8.2) g/dL Albumin 2.3 L (3.5-5.0) g/dL 03/27/21 Range/Units 06:04 RBC (4.30-5.90) m/uL Hgb (13.0-17.5) gm/dL Hct (39.0-53.0) % Plt Count (150-450) k/uL Lymphocytes # (1.0-4.8) k/uL D-Dimer (<0.60) mg/L FEU ABG pCO2 (35-45) mmHg ABG pO2 (83-108) mmHg ABG HCO3 (21-25) mmol/L ABG Total CO2 (19-24) mmol/L ABG O2 Saturation (94-97) % Sodium (137-145) mmol/L Chloride (98-107) mmol/L Carbon Dioxide (22-30) mmol/L BUN (9-20) mg/dL Creatinine (0.66-1.25) mg/dL Glucose (74-99) mg/dL POC Glucose (mg/dL) 71 L (75-99) mg/dL Calcium (8.4-10.2) mg/dL ALT (4-49) U/L Lactate Dehydrogenase (313-618) U/L Creatine Kinase (55-170) U/L C-Reactive Protein (<1.0) mg/dL Total Protein (6.3-8.2) g/dL Albumin (3.5-5.0) g/dL Microbiology - Last 24 Hours (Table) 03/23/21 23:40 Urine Culture - Final Urine,Catheterized Escherichia coli Klebsiella oxytoca 03/24/21 00:17 Gram Stain - Final Sputum Sputum Culture - Final Diabetes panel 03/27/21 Range/Units 04:15 Sodium 134 L (137-145) mmol/L Potassium 4.8 (3.5-5.1) mmol/L Chloride 86 L (98-107) mmol/L Carbon Dioxide 34 H (22-30) mmol/L BUN 111 H* (9-20) mg/dL Creatinine 5.74 H (0.66-1.25) mg/dL Glucose 69 L (74-99) mg/dL Calcium 6.4 L* (8.4-10.2) mg/dL AST 42 (17-59) U/L ALT 161 H (4-49) U/L Alkaline Phosphatase 124 (38-126) U/L Total Protein 4.9 L (6.3-8.2) g/dL Albumin 2.3 L (3.5-5.0) g/dL Calcium panel 03/27/21 Range/Units 04:15 Calcium 6.4 L* (8.4-10.2) mg/dL Albumin 2.3 L (3.5-5.0) g/dL Pituitary panel 03/27/21 Range/Units 04:15 Sodium 134 L (137-145) mmol/L Potassium 4.8 (3.5-5.1) mmol/L Chloride 86 L (98-107) mmol/L Carbon Dioxide 34 H (22-30) mmol/L BUN 111 H* (9-20) mg/dL Creatinine 5.74 H (0.66-1.25) mg/dL Glucose 69 L (74-99) mg/dL Calcium 6.4 L* (8.4-10.2) mg/dL Adrenal panel 03/27/21 Range/Units 04:15 Sodium 134 L (137-145) mmol/L Potassium 4.8 (3.5-5.1) mmol/L Chloride 86 L (98-107) mmol/L Carbon Dioxide 34 H (22-30) mmol/L BUN 111 H* (9-20) mg/dL Creatinine 5.74 H (0.66-1.25) mg/dL Glucose 69 L (74-99) mg/dL Calcium 6.4 L* (8.4-10.2) mg/dL Total Bilirubin 0.3 (0.2-1.3) mg/dL AST 42 (17-59) U/L ALT 161 H (4-49) U/L Alkaline Phosphatase 124 (38-126) U/L Total Protein 4.9 L (6.3-8.2) g/dL Albumin 2.3 L (3.5-5.0) g/dL
--- NOTE | 2021-03-27 11:31 | P.PCN ---
Description of Procedure: Preoperative diagnoses is acu kidney injury, colon was removed pneumonia patient on ventilator with high BUN/creatinine posterior same Procedure patient's in the disc care unit right groin were prepped and draped applied in standard manner. Ultrasound-guided micropuncture introduced right femoral vein micropuncture guidewire was passed and 4 finger lateral to the top of guidewire. After that we passed a regular guidewire, after that we placed a dilator. The guidewire then we placed a triple-lumen dialysis catheter without any resistance flushed with heparin saline and Hep-Lock secured with 3-0 nylon patient for the procedure well
[2021-03-27 12:19] LABS: Glucose,Whole Blood 112 mg/dL (75-99)
--- NOTE | 2021-03-27 12:39 | PN ---
PROGRESS NOTE Patient is seen for followup for acute kidney injury mostly acute tubular necrosis associated with underlying COVID pneumonia and infection. The patient continues to have no significant urine output. It had improved slightly at about 20-40 mL an hour but then dropped back down. Patient's BUN has increased to 111 and creatinine up to 5.7. His FiO2 remains at 80% and PEEP of 14. EXAMINATION: On examination today, patient remains on the vent. Blood pressure was 136/66, heart rate 101 per minute he is afebrile. Examination shows trace edema bilaterally. [employer] exam cannot be performed. LAB: Show sodium 134, potassium 4.8, chloride 86, BUN 111, serum creatinine 5.74, hemoglobin of 11.7 g/dL. ASSESSMENT: 1. Acute kidney injury acute tubular necrosis currently nonoliguric with worsening BUN and creatinine. We will proceed with renal replacement therapy. Vascular surgery has been consulted. We will plan for dialysis today. We will also try to remove about 1-2 L as tolerated. 2. Acute hypoxic respiratory failure secondary to Covid pneumonia/ARDS. 3. Respiratory acidosis status post bicarb drip. 4. Urinary tract infection, urine culture growing Escherichia coli and Klebsiella oxytoca. PLAN: Hemodialysis today and then again in a.m. Proceed with vascular surgery consult. MMODL / IJN: [id number] /
--- NOTE | 2021-03-27 14:51 | PN ---
PROGRESS NOTE DATE OF SERVICE: 03/27/2021 This 55-year-old gentleman who was admitted with acute hypoxic respiratory failure and COVID-19 pneumonia also had possible ARDS. Patient is mechanically intubated. Patient is currently on tidal volume 400 and assist control 80% FiO2 PEEP of 14, saturating satisfactorily. The patient had a right-sided pneumothorax and chest tube draining at this time. The PEG tube and tracheostomy are on hold. Dr. Pruitt is following the patient closely. The patient also had inflammatory markers of COVID-19 also. A surgical consultation has also been sought for dialysis catheter insertion by Dr. Mclean at this time. PAST MEDICAL HISTORY: Reviewed. REVIEW OF SYSTEMS: Could not be taken, the patient is mechanically sedated. CURRENT MEDICATIONS: Tylenol, Ventolin, Rocephin, ( ), dexamethasone Lovenox, Lasix, Dilaudid. PHYSICAL EXAM: Patient is mechanically sedated. Pulse 108, blood pressure 132/61, respiration 13, temperature normal, pulse ox 88% on mechanical ventilation. HEENT: Conjunctivae normal. Oral mucosa moist. NECK: No jugular venous distention. No lymph node enlargement. CARDIOVASCULAR: S1, S2, muffled. No S3, no S4, RESPIRATORY: Diminished breath sounds at the bases. A few scattered rhonchi. ABDOMEN: Soft, nontender. LEGS: No edema, no swelling. NERVOUS SYSTEM: Mechanically sedated. LAB STUDIES: WBC 7.3, hemoglobin 11.7 and platelets 75. D-dimer is 1.65. The BUN is 111, creatinine is 5.74. ASSESSMENT: 1. Acute hypoxic hypercarbic respiratory failure secondary to COVID pneumonia, bilateral, with possibly ARDS on mechanical ventilation and intubation. 2. Urinary tract infection with Escherichia coli and Klebsiella oxytoca. 3. Acute renal failure with acute tubular necrosis, oliguric, planning on new onset hemodialysis. 4. Change in mental status, acute metabolic encephalopathy. 5. Right-sided pneumothorax on chest tube. 6. Elevated AST/ALT, possibly acute hepatitis related to COVID-19. 7. Hypocalcemia. 8. Thrombocytopenia. 9. Acute COVID-19 pneumonia with multifocal ground-glass opacity with consolidations. 10.Hyperglycemia. 11.Elevated D-dimer. 12.Lactic acidosis. 13.Acute renal failure with acute tubular necrosis. 14.Leukopenia. 15.Elevated inflammatory markers of COVID-19. 16.Hypertension. 17.Hyponatremia. 18.Anemia. 19.Elevated D-dimer. 20.Obesity. 21.FULL CODE. RECOMMENDATIONS: In this 55-year-old gentleman who presented with multiple complex medical issues, we will monitor the patient closely, continue the current management and symptomatic treatment. Cultures as above. The patient is currently on Rocephin. Continue the bronchodilators. Continue dexamethasone. Monitor blood sugars closely. Hemodialysis. Otherwise, the prognosis guarded because of multiple complex medical issues and further recommendations to follow. Will closely monitor with multiple consultants. MMODL / IJN: [id number] /
[2021-03-27 17:34] LABS: Glucose,Whole Blood 134 mg/dL (75-99)
[2021-03-27 17:47] LABS: Ferritin 2569.2 ng/mL (22.0-322.0)
[2021-03-27 19:14] LABS: Hepatitis B Surface AB- Quant <3.5 mIU/mL; Hepatitis B Surface Antibody Non-Reactive (Non-Reactive); Hepatitis B Surface Antigen Non-Reactive (Non-Reactive)
[2021-03-27 23:52] LABS: Glucose,Whole Blood 139 mg/dL (75-99)
[2021-03-27] MEDS: NOREPINEPHRINE 8 MG in SODIUM CHLORIDE 0.9% 250 ML IV SCH (23:58)
[2021-03-28] MEDS: INSULIN ASPART (NovoLOG) 100 UNIT/ML VIAL SQ SCH ×4 (00:08→18:02)
[2021-03-28 04:19] LABS: Basophils % (A) 0 %; Eosinophils # (A) 0.1 k/uL (0-0.7); Eosinophils % (A) 1 %; HCT 35.9 % (39.0-53.0); HGB 12.2 gm/dL (13.0-17.5); Lymphocytes # (A) 0.2 k/uL (1.0-4.8); Lymphocytes % (A) 3 %; MCH 31.3 pg (25.0-35.0); MCHC 34.1 g/dL (31.0-37.0); MCV 91.9 fL (80.0-100.0); Mean Platelet Volume 8.9; Monocytes # (A) 0.3 k/uL (0-1.0); Monocytes % (A) 4 %; Neutrophils # (A) 6.6 k/uL (1.3-7.7); Neutrophils % (A) 92 %; RBC 3.91 m/uL (4.30-5.90); RDW 15.1 % (11.5-15.5); WBC 7.2 k/uL (3.8-10.6)
[2021-03-28 04:35] LABS: Albumin 2.6 g/dL (3.5-5.0); Total Bilirubin 0.4 mg/dL (0.2-1.3); Total Protein 5.5 g/dL (6.3-8.2)
[2021-03-28 04:37] LABS: Platelet Count 94 k/uL (150-450)
[2021-03-28 05:05] LABS: C Reactive Protein 24.1 mg/dL (<1.0)
[2021-03-28] MEDS: CISATRACURIUM 200 MG in SODIUM CHLORIDE 0.9% 180 ML IV SCH ×2 (05:18→22:56)
[2021-03-28 05:45] LABS: ABG Base Excess 2.8 mmol/L; ABG HCO3 30 mmol/L (21-25); ABG Oxygen Saturation 87.3 % (94-97); ABG PCO2 62 mmHg (35-45); ABG PH 7.29 (7.35-7.45); ABG PO2 62 mmHg (83-108); ABG TCO2 31 mmol/L (19-24); Allen Test Performed? Yes
[2021-03-28] MEDS: MIDODRINE 5 MG TAB PO SCH ×2 (06:38→17:50)
[2021-03-28] MEDS: INSULIN DETEMIR (LEVEMIR) 100 UNIT/ML SYR SQ SCH ×2 (06:38→20:08)
[2021-03-28] MEDS: ALBUTEROL HFA INHALER INHALATION PRN ×4 (07:29→21:54)
[2021-03-28] MEDS: CHLORHEXIDINE GLUCONATE 15 ML CUP MUCOUS MEM SCH ×2 (08:48→20:08)
[2021-03-28] MEDS: FUROSEMIDE 10 MG/ML 10 ML VIAL IV SCH ×2 (08:48→20:08)
[2021-03-28] MEDS: DEXAMETHASONE SOD PHOSPHATE 4 MG/ML 1 ML VIAL IV SCH (08:48)
[2021-03-28] MEDS: ENOXAPARIN 30 MG/0.3 ML SYRINGE SQ SCH (08:49)
[2021-03-28] MEDS: PANTOPRAZOLE 40 MG/10 ML VIAL IVP SCH (08:49)
--- NOTE | 2021-03-28 10:24 | XR ---
EXAMINATION TYPE: XR chest 1V portable DATE OF EXAM: 03/28/2021 COMPARISON: Chest x-ray 03/27/2021 HISTORY: Intubated TECHNIQUE: Single frontal view of the chest is obtained. FINDINGS: Endotracheal tube, NG tube, right jugular central venous catheter are again noted, there i s right-sided chest tube again seen. There is no sizable pneumothorax. Patchy basilar density, blunti ng the costophrenic angles is again noted. Interstitium is increased. Cardiac mediastinal silhouette is likely stable accounting for rotation. There are overlying artifacts. IMPRESSION: Findings similar to prior exam. There may be a component of interstitial edema, difficul t to exclude pneumonia, basilar effusions
--- NOTE | 2021-03-28 11:02 | P.PN ---
Subjective Progress Note Date: 03/28/21 Principal diagnosis: Respiratory failure Patient remains sedated and paralyzed on the ventilator. His oxygen requirements increased and he is now at 100% FiO2 and 16 of PEEP. He is receiving dialysis again today. Tolerating tube feeds. Objective - Vital Signs Vital signs: Vital Signs Temp 98.7 F 03/28/21 08:00 Pulse 114 H 03/28/21 10:00 Resp 36 H 03/28/21 10:00 BP 91/63 03/28/21 10:00 Pulse Ox 93 L 03/28/21 10:00 Intake & Output 03/27/21 03/28/21 03/28/21 18:59 06:59 18:59 Intake Total 978.203 894.044 176 Output Total 2584 275 50 Balance -1605.797 619.044 126 Weight 90.9 kg Intake: IV 272 160 48 D5W 150 100 30 cefTRIAXone 1 gm In 50 Sodium Chloride 0.9% 50 ml @ 100 mls/hr IVPB Q24H [facility] Rx#:[id number] pressure bag 72 60 18 Intake, IV Titration 436.203 504.044 100 Amount Cisatracurium 200 mg In 174.643 145.107 Sodium Chloride 0.9% 180 ml @ 1 MCG/KG/MIN 5.748 mls/hr IV .Q24H [facility] Rx#: [id number] propofoL 1,000 mg In 261.56 358.937 100 Empty Bag 1 bag @ Titrate IV .Q0M [facility] Rx#: [id number] Tube Feeding 210 140 28 Other 60 90 Output: Chest Tube Drainage 0 0 0 Chest Tube Right 0 0 0 Urine 584 275 50 Stool 0 Hemodialysis 2000 Other: Voiding Method Indwelling Catheter Indwelling Catheter Indwelling Catheter ABP, PAP, CO, CI - Last Documented Arterial Blood Pressure 97/51 - Exam Abdomen: Soft, nontender, nondistended - Labs CBC & Chem 7: 03/28/21 03:55 03/28/21 03:55 Labs: Abnormal Lab Results - Last 24 Hours (Table) 03/27/21 03/27/21 03/27/21 Range/Units 04:15 12:16 17:33 RBC (4.30-5.90) m/uL Hgb (13.0-17.5) gm/dL Hct (39.0-53.0) % Plt Count (150-450) k/uL Lymphocytes # (1.0-4.8) k/uL ABG pH (7.35-7.45) ABG pCO2 (35-45) mmHg ABG pO2 (83-108) mmHg ABG HCO3 (21-25) mmol/L ABG Total CO2 (19-24) mmol/L ABG O2 Saturation (94-97) % Sodium (137-145) mmol/L Chloride (98-107) mmol/L BUN (9-20) mg/dL Creatinine (0.66-1.25) mg/dL Glucose (74-99) mg/dL POC Glucose (mg/dL) 112 H 134 H (75-99) mg/dL Calcium (8.4-10.2) mg/dL Ferritin 2569.2 H (22.0-322.0) ng/mL ALT (4-49) U/L Alkaline Phosphatase (38-126) U/L Lactate Dehydrogenase (313-618) U/L Creatine Kinase (55-170) U/L C-Reactive Protein (<1.0) mg/dL Total Protein (6.3-8.2) g/dL Albumin (3.5-5.0) g/dL 03/27/21 03/28/21 03/28/21 Range/Units 23:51 03:55 03:55 RBC 3.91 L (4.30-5.90) m/uL Hgb 12.2 L (13.0-17.5) gm/dL Hct 35.9 L (39.0-53.0) % Plt Count 94 L (150-450) k/uL Lymphocytes # 0.2 L (1.0-4.8) k/uL ABG pH (7.35-7.45) ABG pCO2 (35-45) mmHg ABG pO2 (83-108) mmHg ABG HCO3 (21-25) mmol/L ABG Total CO2 (19-24) mmol/L ABG O2 Saturation (94-97) % Sodium 133 L (137-145) mmol/L Chloride 89 L (98-107) mmol/L BUN 91 H (9-20) mg/dL Creatinine 4.81 H (0.66-1.25) mg/dL Glucose 119 H (74-99) mg/dL POC Glucose (mg/dL) 139 H (75-99) mg/dL Calcium 7.0 L (8.4-10.2) mg/dL Ferritin (22.0-322.0) ng/mL ALT 114 H (4-49) U/L Alkaline Phosphatase 185 H (38-126) U/L Lactate Dehydrogenase 1147 H (313-618) U/L Creatine Kinase 206 H (55-170) U/L C-Reactive Protein 24.1 H (<1.0) mg/dL Total Protein 5.5 L (6.3-8.2) g/dL Albumin 2.6 L (3.5-5.0) g/dL 03/28/21 Range/Units 05:40 RBC (4.30-5.90) m/uL Hgb (13.0-17.5) gm/dL Hct (39.0-53.0) % Plt Count (150-450) k/uL Lymphocytes # (1.0-4.8) k/uL ABG pH 7.29 L (7.35-7.45) ABG pCO2 62 H (35-45) mmHg ABG pO2 62 L (83-108) mmHg ABG HCO3 30 H (21-25) mmol/L ABG Total CO2 31 H (19-24) mmol/L ABG O2 Saturation 87.3 L (94-97) % Sodium (137-145) mmol/L Chloride (98-107) mmol/L BUN (9-20) mg/dL Creatinine (0.66-1.25) mg/dL Glucose (74-99) mg/dL POC Glucose (mg/dL) (75-99) mg/dL Calcium (8.4-10.2) mg/dL Ferritin (22.0-322.0) ng/mL ALT (4-49) U/L Alkaline Phosphatase (38-126) U/L Lactate Dehydrogenase (313-618) U/L Creatine Kinase (55-170) U/L C-Reactive Protein (<1.0) mg/dL Total Protein (6.3-8.2) g/dL Albumin (3.5-5.0) g/dL Assessment and Plan (1) Acute respiratory failure due to COVID-19 Narrative/Plan: 55-year-old male with respiratory failure secondary to Covid pneumonia. Patient has shown some decline since yesterday. Continue optimization of pulmonary status. Remain on standby for possible tracheostomy and PEG tube placement. Current Visit: Yes Status: Acute Code(s): U07.1 - COVID-19; J96.00 - ACUTE RESPIRATORY FAILURE, UNSP W HYPOXIA OR HYPERCAPNIA SNOMED Code(s): 230637791
--- NOTE | 2021-03-28 11:24 | PN ---
PROGRESS NOTE Patient is seen for followup for acute kidney injury. He has been started on dialysis for progressive renal failure volume overload. The patient continues to have urine output roughly at about 15 to 30 mL an hour. He is currently seen on dialysis, receiving his second treatment today. We had about 2 L of fluid removed yesterday. PHYSICAL EXAMINATION: On examination today, patient remains on the vent. He is seen on dialysis. Discussed with nursing staff and dialysis staff. Blood pressure 110/58, heart rate 113 per minute. Patient remains with edema of lower extremities. He is tolerating tube feeds. LAB: Show sodium 133, potassium 5.0, chloride 89, BUN 91, creatinine 4.8, hemoglobin 12.2 g/dL. ASSESSMENT: 1. Acute kidney injury, acute tubular necrosis, nonoliguric currently but with progressive renal failure and volume overload. Started on dialysis. We will try for another 2 L today and plan for treatment again tomorrow. We did take off about 2 L yesterday. 2. Acute hypoxic respiratory failure secondary to COVID pneumonia. 3. COVID pneumonia, maintained on steroids. 4. Volume overload. PLAN: Repeat hemodialysis in a.m. Continue to avoid nephrotoxic agents. MMODL / IJN: [id number] /
[2021-03-28 11:30] LABS: Ferritin 1744.2 ng/mL (22.0-322.0)
[2021-03-28 12:18] LABS: Glucose,Whole Blood 132 mg/dL (75-99)
[2021-03-28 14:43] VITALS: BMI 31.4
--- NOTE | 2021-03-28 15:19 | P.PN ---
Subjective Progress Note Date: 03/28/21 Principal diagnosis: Acute hypoxic respiratory failure secondary to COVID-19 pneumonia 03/23/2021, the patient is being seen for a follow-up. Earlier this morning, the patient was on high flow oxygen with 55 L with an FiO2 of 81%. Subsequently, he became progressively more dyspneic and hypoxic and the patient also developed right-sided chest pain. At that point, he was placed on 100% nonrebreather facemask in addition to his high flow oxygen. His current pulse ox is at 85%. His high flow oxygen is running at extremity liters with an FiO2 of 90%. A chest x-ray was done and showed development of a large right-sided pneumothorax. The patient has also ongoing diffuse pulmonary infiltration involving the left lung. He is currently short of breath. The Neck. Tachyc ardic. Heart rate is around 147, sinus. He is afebrile. He remains on prednisone orally 40 mg by mouth daily. There is COVID-19 related pneumonia/ARDS. The patient will be transferred to the intensive care unit. I will put a Thoravent for him. His platelet count is improving is currently up t o 43. HIV antibodies have been sent and results are still pending. LDH from yesterday was 1002 with a CRP level of 26.4. His inflammatory markers remain elevated although they're not as high as earlier values in regards to his LVH. He is awake. He is conscious. His communicating. He is a bit tachypneic and his current respiratory rate in the mid 30s. IV fluids are running at the rate of 75 mL an hour of normal saline. Remains on multivitamins. Remains on restoril for sleep. He remains on Levemir insulin 40 units daily a.m. and 25 units in p.m. along with a sliding scale coverage. Afebrile. No signs of any fluid overload. \ 03/24, the patient is being seen in follow-up in intensive care unit. He is critically ill and currently intubated on a mechanical ventilator. Events from yesterday were noted. Noted initially the patient developed this moderate- sized right-sided pneumothorax. A Thoravent was inserted and it was successful and the right lung expanded. He was moved to the intensive care unit where he was kept on a combination of high flow oxygen and on the percent nonrebreather facemask. Nevertheless, overnight, his condition decompensated. He became pro gressively more hypoxic. He became progressively more agitated and restless. His pulse ox dropped further and his pO2 on a blood gas was down to 37. At that point, I decided to assess for intubation mechanical ventilation. The patient was intubated successfully and the patient currently has kristen tracheal tube #8. Post intubation, the patient became hypotensive. Immediately a chest x-ray was done that showed a large tension pneumothorax. Immediately a 28-Serbian chest tube was inserted in the right lung with complete reexpansion of the right chest. Note that the Thoravent is still an adequate location the right chest. He has a right IJ triple-lumen catheter in place. At this point in time, the patient is an assist-control mode at the rate of 36 with a tidal volume of 400 and FiO2 of 100% with a PEEP of 15. Chest x-ray showing diffuse bilateral pulmonary infiltrates right more than left. There is no residual pneumothorax. The right-sided chest tube is in a good location. Output from the chest tube is in the order of 80 mL since the chest tube has been inserted. Also positive air leak. The patient is currently on propofol at 50 mg/kg/m. Patient is also paralyzed with Nimbex at 1 mcg/kg per minute. He is quite successful the mechanical ventilator. Note that post chest tube insertion, the patient improved and the patient's hemodynamics improved. He was taken off pressors. Currently is receiving IV fluids at the rate of 100 mL an hour of D5 150 mEq of sodium bicarbonate. This wish the bicarb infusion was done earlier this morning as the patient was getting acidotic and he has also developed some hyperkalemia. He received also a total of 150 mEq of sodium bicarb IV push which brought his potassium from 6.2 down to 5.4. The most recent blood gas shows a pH of 7.22 with a pCO2 of 68 and pO2 of 103. His peak airway pressure is 36. In terms of COVID-19 treatment, the patient has been maintained on oral prednisone 40 mg IV daily basis. His been on steroids for more than 3 weeks for now. He will be started on enteral feeding for nutritional support. His urine output is known that of 20 mL an hour. His platelet count today is up to 54 and the patient is off Lovenox for now. The antibodies for heparin-induced thrombocytopenia was negative. The d-dimer is down to 1.8. 03/25/2021, the patient is in the intensive care unit, intubated on a mechanical ventilator, sedated and paralyzed. This occurred due to complications of COVID- 19 related pneumonia, ARDS, right-sided pneumothorax. At this point in time, the patient is sedated with propofol which is running at 50 mics of aspirin kilogram per minute and index is at 1 mcg/kg per minute. The patient is quite successful mechanical ventilator. He is an assist-control mode with permissive hypercapnia.. At the rate of 36 with a tidal volume of 400 and FiO2 of 100% with a PEEP of 14. He did have some desaturation in his FiO2 was brought up from 80% to 100%. PH is at 7.27 with a pCO2 of 71 and pO2 of 72 this was done on FiO2 of 100%. His peak airway pressures 34. His static pressures around 32. There is intermittent air leak from the chest tube. The chest x-ray showing diffuse bilateral pulmonary infiltrates consistent with ARDS and there is no evidence of any pneumothorax on today's chest x-ray. Hemodynamically, the patient is on no pressors. Nevertheless, the patient has developed an acute kidney injury. Creatinine is double since yesterday and the patient is not producing any urine output. His creatinine is up to 2.87 with a BUN of 71. I have him on a bicarb infusion to counteract his permissive hypercapnia. His potassium level is at 4.9 and his serum bicarbs at 32 and bicarb infusion is still running at 150 mEq of sodium bicarbonate the rate of 100 mL an hour. He has become somewhat alkalotic, this is essentially metabolic alkalosis. Nevertheless, the overall acid base status is still acidosis in the form of respiratory acidosis with permissive hypercapnia. His platelet count is currently at 62. He was seen by hematology oncology. Heparin-induced thrombocytopenia antibodies have been negative. Lovenox will be started on low- dose knowing that the patient has developed also an acute kidney injury. His d- dimer is down to 1.02. His inflammatory markers including LDH is down to 1212 and his CRP is also added 36. He is receiving enteral feeding for nutritional support and currently is on Nepro at the rate of 14 mL an hour. In terms of his steroids treatment, the patient hasn't placed on Decadron at a dose of 4 mg IV every 24 hours. Condition is critical. Family arrived and was given a full explanation condition. 03/26/2021, the patient is being seen in follow-up in the intensive care unit. He remains intubated, sedated and paralyzed. He is a case of COVID-19 related pneumonia. By ARDS and right-sided pneumothorax. This morning, he still sedated and paralyzed. Propofol still running at 50 g. Nimbex is still running at 1 mcg/kg per minute. Ventilator settings are essentially unchanged compared to yesterday with a rate of 36 and a tidal volume of 400 and FiO2 of 100% with a PEEP of 14. Peak airway pressures 34 which is essentially the same as yesterday. There is still intermittent air leak and the chest tube and out put is minimal at this point in time. There is no evidence of pneumothorax on today's chest x-ray. The blood gases showed some limited improvement in oxygenation. PO2 is up to 82 with a pCO2 of 68 and a pH of 7.34. I dropped FiO2 down to 80%. At the same time, I'm going to give this patient a paralytic holiday today. In terms of his d-dimer, he is at 1.52 and he is on Lovenox 30 mg subcu daily. His inflammatory markers from today shows an LDH level of 97 7 which is improved, CRP level is up to 57.8. The patient remains on a bicarb infusion. Serum bicarb is 3060significant acidosis at this point in time. His acidosis is improved and is at 27.34 and the patient's potassium level is down to 4.4. Nevertheless, he has developed an acute kidney injury as mentioned earlier in his creatinine is at 4.59 and his urine output is order of 5 mL an hour. His net fluid balance is positive in the order of 3.1 and 3.2 L over the past 24-48 hours. As such, nephrology is on the case and the patient may be considered for hemodialysis for fluid retention. He is still requiring pressors and he is on low dose norepinephrine infusion running at 0.03 mics of aspirin kilogram per minute. The patient's platelet counts have been improving and they're up to 72,000. The patient also is on enteral feeding for nutritional support and the patient is receiving Nepro at the rate of 40 mL an hour which is the same as yesterday and the patient is tolerating the enteral feeding without any major issues. No other significant events otherwise for now. 03/27/2021 - seeing this patient for a follow-up. Patient remains intubated on a mechanical ventilator. This morning, the patient is on a propofol running at 60 mcg/kg per minute and the patient is also Nimbex at to make progress. Kilogram per minute.. Quite sick visit a mechanical ventilator. The patient is an assist-control mode at the rate of 36 with tidal volume of 400 and FiO2 of 80% with a PEEP of 14. Morning blood gases showed a pH of 7.37 with a pCO2 of 61 and pO2 of 67. The chest x-ray from this morning is showing no evidence of any pneumothorax. The right-sided chest tube is in place. There is still persistent episodic air leak. Output is minimal as mentioned. Nevertheless, the chest x-ray is not showing any significant pneumothorax. His consistent with COVID-19 related pneumonia/ARDS. Peak airway pressures around 31 static pressures around 28. Anorexia, the patient is on no pressors. Urine output is minimal and the patient continues to be an acute kidney injury. The creatinine from today is at 5.7 with a BUN of 111. This has been discussed with nephrology. I will see the patient is in a positive fluid balance. The patient will need hemodialysis. Vascular surgery has been consulted yesterday and the vascular access has not been established yet. This will be important to be done today. I'm hoping that we can establish hemodialysis today. White cell count at 7.8 with a hemoglobin of 11.7. Potassium level is at 4.8. Serum bicarbs at 34. She will feeds are still running in the form of Nepro at the rate of 40 mL an hour. The patient otherwise has a right IJ triple-lumen catheter, right radial arterial line. Right-sided chest tube. Most recent LDH is at 1113 and the d-dimer is at 1.65. The patient remains on Lovenox. That examination was held yesterday in preparation for a temporary dialysis catheter insertion. Patient was reevaluated today 03/28/2021, patient remains in the ICU, intubated and mechanically ventilated. His assist-control rate is 36, tidal volume is 400 FiO2 is 100% PEEP is 14, ABG showed a pO2 of 62 pCO2 of 62 pH of 7.29. This was on 80% FiO2, and I increased her FiO2 to 100%. Patient is sedated, and paralyzed, he is on propofol at 70 mcg/kg/m, his also on Nimbex at 2 mcg/kg/m. Patient is receiving Nepro for nutritional support/enteral feeding. PEEP was increased today to 16, and the patient is undergoing hemodialysis, recommended norepinephrine if blood pressure is marginal during dialysis. Patient will definitely benefit from more fluid removal and may have to support the low blood pressure with norepinephrine. Patient was intubated on 03/23, his urine has been positive for E. coli and Klebsiella. Remains on Rocephin 1 g every 24 hours. Chest x-ray continues to show bilateral interstitial infiltrates. Consistent with COVID-19 pneumonia. CBC showed WBC count of 7.2 hemoglobin is 12.2 hematocrit is 35.9. Electrolytes are normal. Renal profile is abnormal with BUN of 91 creatinine 4.81 elevated inflammatory markers including LDH of 1147 C- reactive protein of 24 and slightly elevated liver enzymes. Patient remains on Decadron at 4 mg IV push daily, remains on Lovenox at 50 mg subcu daily, Lasix 80 mg IV push every 12 hours Dilaudid every 3 hours when necessary midodrine, and insulin. Objective - Vital Signs Vital signs: Vital Signs Temp 97.3 F L 03/28/21 12:28 Pulse 113 H 03/28/21 12:28 Resp 36 H 03/28/21 12:28 BP 102/65 03/28/21 12:28 Pulse Ox 94 L 03/28/21 11:00 Intake & Output 03/27/21 03/28/21 03/28/21 18:59 06:59 18:59 Intake Total 978.203 894.044 208 Output Total 2584 275 1505 Balance -1605.797 619.044 -1297 Weight 90.9 kg 90.9 kg Intake: IV 272 160 80 D5W 150 100 50 cefTRIAXone 1 gm In 50 Sodium Chloride 0.9% 50 ml @ 100 mls/hr IVPB Q24H [facility] Rx#:[id number] pressure bag 72 60 30 Intake, IV Titration 436.203 504.044 100 Amount Cisatracurium 200 mg In 174.643 145.107 Sodium Chloride 0.9% 180 ml @ 1 MCG/KG/MIN 5.748 mls/hr IV .Q24H [facility] Rx#: [id number] propofoL 1,000 mg In 261.56 358.937 100 Empty Bag 1 bag @ Titrate IV .Q0M [facility] Rx#: [id number] Tube Feeding 210 140 28 Other 60 90 Output: Chest Tube Drainage 0 0 0 Chest Tube Right 0 0 0 Urine 584 275 105 Stool 0 Hemodialysis 2000 1400 Other: Voiding Method Indwelling Catheter Indwelling Catheter Indwelling Catheter ABP, PAP, CO, CI - Last Documented Arterial Blood Pressure 94/49 - Exam Physical Exam revealed 55-year-old white male sedated and paralyzed, on mechanical ventilation. Head: Atraumatic, normocephalic. Endotracheal tube and orogastric tube are intact. Right-sided chest tube is also intact HEENT:[Neck is supple.] [No neck masses.] [No thyromegaly.] [No JVD.] Chest: Symmetrical expansion fine crackles at the bases no rhonchi and no wheezes.] Right-sided chest tube is intact, no leak noted from the right-sided chest tube. Cardiac Exam: [Normal S1 and S2, no S3 gallop, no murmur.] Abdomen: [Soft, nontender, no megaly, no rebound, no guarding, normal bowel sounds.] Extremities: [No clubbing, no edema, no cyanosis.] Neurological Exam: Not assess., patient is sedated and paralyzed. Psychiatric: Could not assess. Skin: No rashes. Musculoskeletal: No deformities. - Labs CBC & Chem 7: 03/28/21 03:55 03/28/21 03:55 Labs: Abnormal Lab Results - Last 24 Hours (Table) 03/27/21 03/27/21 03/27/21 Range/Units 04:15 17:33 23:51 RBC (4.30-5.90) m/uL Hgb (13.0-17.5) gm/dL Hct (39.0-53.0) % Plt Count (150-450) k/uL Lymphocytes # (1.0-4.8) k/uL ABG pH (7.35-7.45) ABG pCO2 (35-45) mmHg ABG pO2 (83-108) mmHg ABG HCO3 (21-25) mmol/L ABG Total CO2 (19-24) mmol/L ABG O2 Saturation (94-97) % Sodium (137-145) mmol/L Chloride (98-107) mmol/L BUN (9-20) mg/dL Creatinine (0.66-1.25) mg/dL Glucose (74-99) mg/dL POC Glucose (mg/dL) 134 H 139 H (75-99) mg/dL Calcium (8.4-10.2) mg/dL Ferritin 2569.2 H (22.0-322.0) ng/mL ALT (4-49) U/L Alkaline Phosphatase (38-126) U/L Lactate Dehydrogenase (313-618) U/L Creatine Kinase (55-170) U/L C-Reactive Protein (<1.0) mg/dL Total Protein (6.3-8.2) g/dL Albumin (3.5-5.0) g/dL 03/28/21 03/28/21 03/28/21 Range/Units 03:55 03:55 05:40 RBC 3.91 L (4.30-5.90) m/uL Hgb 12.2 L (13.0-17.5) gm/dL Hct 35.9 L (39.0-53.0) % Plt Count 94 L (150-450) k/uL Lymphocytes # 0.2 L (1.0-4.8) k/uL ABG pH 7.29 L (7.35-7.45) ABG pCO2 62 H (35-45) mmHg ABG pO2 62 L (83-108) mmHg ABG HCO3 30 H (21-25) mmol/L ABG Total CO2 31 H (19-24) mmol/L ABG O2 Saturation 87.3 L (94-97) % Sodium 133 L (137-145) mmol/L Chloride 89 L (98-107) mmol/L BUN 91 H (9-20) mg/dL Creatinine 4.81 H (0.66-1.25) mg/dL Glucose 119 H (74-99) mg/dL POC Glucose (mg/dL) (75-99) mg/dL Calcium 7.0 L (8.4-10.2) mg/dL Ferritin 1744.2 H (22.0-322.0) ng/mL ALT 114 H (4-49) U/L Alkaline Phosphatase 185 H (38-126) U/L Lactate Dehydrogenase 1147 H (313-618) U/L Creatine Kinase 206 H (55-170) U/L C-Reactive Protein 24.1 H (<1.0) mg/dL Total Protein 5.5 L (6.3-8.2) g/dL Albumin 2.6 L (3.5-5.0) g/dL 03/28/21 Range/Units 12:16 RBC (4.30-5.90) m/uL Hgb (13.0-17.5) gm/dL Hct (39.0-53.0) % Plt Count (150-450) k/uL Lymphocytes # (1.0-4.8) k/uL ABG pH (7.35-7.45) ABG pCO2 (35-45) mmHg ABG pO2 (83-108) mmHg ABG HCO3 (21-25) mmol/L ABG Total CO2 (19-24) mmol/L ABG O2 Saturation (94-97) % Sodium (137-145) mmol/L Chloride (98-107) mmol/L BUN (9-20) mg/dL Creatinine (0.66-1.25) mg/dL Glucose (74-99) mg/dL POC Glucose (mg/dL) 132 H (75-99) mg/dL Calcium (8.4-10.2) mg/dL Ferritin (22.0-322.0) ng/mL ALT (4-49) U/L Alkaline Phosphatase (38-126) U/L Lactate Dehydrogenase (313-618) U/L Creatine Kinase (55-170) U/L C-Reactive Protein (<1.0) mg/dL Total Protein (6.3-8.2) g/dL Albumin (3.5-5.0) g/dL Assessment and Plan Assessment: Impression: Acute hypoxic respiratory failure secondary to acute COVID-19 pneumonia initial diagnosis was on 03/01/2021, received actemra on 03/02/2021, patient was intubated on 03/23/2021, remains sedated and paralyzed since then. Required chest tube placement for barotrauma and right-sided pneumothorax. Patient developed kidney injury requiring hemodialysis and remains on hemodialysis. Acute barotrauma with a right-sided pneumothorax requiring chest tube placement on 03/23. This is expected Elevated inflammatory markers secondary to COVID-19 infection. Acute kidney injury requiring hemodialysis remains on hemodialysis. History of hypertension. Type 2 diabetes. Thrombocytopenia, improving. Hit antibodies negative. History of underlying COPD. Patient will be a failure to wean considering his overall condition, may eventually consult surgery for PEG tube placement and tracheostomy. Will need to discuss his status with family/ and address CODE STATUS again. Patient was DO NOT RESUSCITATE prior to intubation. Recommendation: Continue ventilatory support. Minimal changes made today, PEEP up to 16. FiO2 up to 100%. Continue paralytics and sedatives. Continue hemodialysis. Norepinephrine for hemodynamic support if needed while on hemodialysis. Continue enteral feeding/interstitial support. Continue Decadron. Continue to monitor daily x-rays of the chest and daily labs and renal profile Family has been updated yesterday by Dr. Pruitt, made aware that his condition is critical, and at least given an idea that the patient may require early tracheostomy and PEG tube placement. Continue GI and DVT prophylaxis. No plans to perform any weaning since the patient is still requiring high FiO2 and high PEEP as well as still requiring Nimbex. We'll continue to follow, patient remains critically ill. Critical care time is over 30 minutes. Time with Patient: Greater than 30
--- NOTE | 2021-03-28 16:47 | P.PN ---
Subjective Progress Note Date: 03/28/21 This is a 55-year-old male who has had prolonged hospitalization and admitted for acute hypoxic respiratory failure and COVID-19 pneumonia also possible arts and is being closely monitored. Patient continues to be intubated and sedated on mechanical vent and being closely monitored in the ICU. Multiple medical consultations including pulmonary, nephrology, and surgery following. Patient has been started on hemodialysis with nephrology following closely and will continue. Patient continues to require high amounts of oxygen and PEEP has been increased to 16 and FiO2 is at 100%. General surgery also following with plans of possible PEG and trach placement. Review of Systems: Unable to obtain as patient is currently intubated and sedated Active Medications Acetaminophen (Acetaminophen Tab 325 Mg Tab) 650 mg PO Q4HR PRN PRN Reason: Fever>101 Last Admin: 03/20/21 22:03 Dose: 650 mg Documented by: Albuterol Sulfate (Albuterol Hfa Inhaler) 2 puff INHALATION RT-Q4H PRN PRN Reason: Shortness Of Breath Or Wheezing Last Admin: 03/28/21 15:47 Dose: 2 puff Documented by: Chlorhexidine Gluconate (Chlorhexidine Gluconate 15 Ml Cup) 15 ml MUCOUS MEM BID [facility] Last Admin: 03/28/21 08:48 Dose: 15 ml Documented by: Dexamethasone Sodium Phosphate (Dexamethasone Sod Phosphate 4 Mg/Ml 1 Ml Vial) 4 mg IV DAILY [facility] Last Admin: 03/28/21 08:48 Dose: 4 mg Documented by: Enoxaparin Sodium (Enoxaparin 30 Mg/0.3 Ml Syringe) 30 mg SQ DAILY [facility] Last Admin: 03/28/21 08:49 Dose: 30 mg Documented by: Furosemide (Furosemide 10 Mg/Ml 10 Ml Vial) 80 mg IV Q12HR [facility] Last Admin: 03/28/21 08:48 Dose: 80 mg Documented by: Hydromorphone HCl (Hydromorphone 1 Mg/Ml 1 Ml Syringe) 1 mg IVP Q3HR PRN PRN Reason: Pain Last Admin: 03/26/21 13:47 Dose: 1 mg Documented by: Propofol 1,000 mg/ IV Solution 100 mls @ 0 mls/hr IV .Q0M [facility]; Protocol Last Admin: 03/28/21 08:49 Dose: 70 mcg/kg/min, 39.228 mls/hr Documented by: Cisatracurium Besylate 200 mg/ (Sodium Chloride) 200 mls @ 5.748 mls/hr IV .Q24H [facility]; Protocol Last Admin: 03/28/21 05:18 Dose: 2 mcg/kg/min, 11.496 mls/hr Documented by: Norepinephrine Bitartrate 8 mg (/ Sodium Chloride) 258 mls @ 9.269 mls/hr IV .Q24H [facility]; Protocol Last Admin: 03/27/21 23:58 Dose: Not Given Documented by: Ceftriaxone Sodium 1 gm/ (Sodium Chloride) 50 mls @ 100 mls/hr IVPB Q24H [facility] Last Admin: 03/27/21 18:13 Dose: 100 mls/hr Documented by: Insulin Aspart (Insulin Aspart (Novolog) 100 Unit/Ml Vial) 0 unit SQ Q6H [facility]; Protocol Last Admin: 03/28/21 05:20 Dose: Not Given Documented by: Insulin Detemir (Insulin Detemir (Levemir) 100 Unit/Ml Syr) 25 unit SQ HS [facility] Last Admin: 03/27/21 19:55 Dose: 25 unit Documented by: Insulin Detemir (Insulin Detemir (Levemir) 100 Unit/Ml Syr) 20 unit SQ DAILY@0700 [facility] Last Admin: 03/28/21 06:38 Dose: 20 unit Documented by: Midodrine (Midodrine 5 Mg Tab) 10 mg PO AC-TID [facility] Last Admin: 03/28/21 06:38 Dose: Not Given Documented by: Naloxone HCl (Naloxone 0.4 Mg/Ml 1 Ml Vial) 0.2 mg IV Q2M PRN PRN Reason: Opioid Reversal Pantoprazole Sodium (Pantoprazole 40 Mg/10 Ml Vial) 40 mg IVP DAILY [facility] Last Admin: 03/28/21 08:49 Dose: 40 mg Documented by: Objective - Vital Signs Vital signs: Vital Signs Temp 97.3 F L 03/28/21 12:28 Pulse 113 H 03/28/21 12:28 Resp 36 H 03/28/21 12:28 BP 102/65 03/28/21 12:28 Pulse Ox 94 L 03/28/21 11:00 Intake & Output 03/27/21 03/28/21 03/28/21 18:59 06:59 18:59 Intake Total 978.203 894.044 208 Output Total 2584 275 1505 Balance -1605.797 619.044 -1297 Weight 90.9 kg Intake: IV 272 160 80 D5W 150 100 50 cefTRIAXone 1 gm In 50 Sodium Chloride 0.9% 50 ml @ 100 mls/hr IVPB Q24H [facility] Rx#:[id number] pressure bag 72 60 30 Intake, IV Titration 436.203 504.044 100 Amount Cisatracurium 200 mg In 174.643 145.107 Sodium Chloride 0.9% 180 ml @ 1 MCG/KG/MIN 5.748 mls/hr IV .Q24H [facility] Rx#: [id number] propofoL 1,000 mg In 261.56 358.937 100 Empty Bag 1 bag @ Titrate IV .Q0M [facility] Rx#: [id number] Tube Feeding 210 140 28 Other 60 90 Output: Chest Tube Drainage 0 0 0 Chest Tube Right 0 0 0 Urine 584 275 105 Stool 0 Hemodialysis 2000 1400 Other: Voiding Method Indwelling Catheter Indwelling Catheter Indwelling Catheter ABP, PAP, CO, CI - Last Documented Arterial Blood Pressure 94/49 - Exam GENERAL: The patient remains intubated on mechanical vent and sedated. Temp is 97.3F, heart rate is 113, respirations are 36, blood pressure is 102/65, oxygen saturation is 94% on 100% FiO2. HEENT: Pupils are round and equally reacting to light. EOMI. No scleral icterus. No conjunctival pallor. Normocephalic, atraumatic. No pharyngeal erythema. No thyromegaly. CARDIOVASCULAR: S1, S2 are muffled, tachycardic PULMONARY: Diminished breath sounds bilaterally with some coarse rhonchi noted throughout ABDOMEN: Soft, obese, non-tender, non-distended, normoactive bowel sounds. No palpable organomegaly. Petechia noted on the chest and abdominal areas MUSCULOSKELETAL: No joint swelling or deformity. EXTREMITIES: No cyanosis, clubbing, or pedal edema. NEUROLOGICAL: Unable to assess as patient is currently intubated and sedated SKIN: Petechia noted on the upper chest and abdominal area. - Labs CBC & Chem 7: 03/28/21 03:55 03/28/21 03:55 Labs: Abnormal Lab Results - Last 24 Hours (Table) 03/27/21 03/27/21 03/27/21 Range/Units 04:15 17:33 23:51 RBC (4.30-5.90) m/uL Hgb (13.0-17.5) gm/dL Hct (39.0-53.0) % Plt Count (150-450) k/uL Lymphocytes # (1.0-4.8) k/uL ABG pH (7.35-7.45) ABG pCO2 (35-45) mmHg ABG pO2 (83-108) mmHg ABG HCO3 (21-25) mmol/L ABG Total CO2 (19-24) mmol/L ABG O2 Saturation (94-97) % Sodium (137-145) mmol/L Chloride (98-107) mmol/L BUN (9-20) mg/dL Creatinine (0.66-1.25) mg/dL Glucose (74-99) mg/dL POC Glucose (mg/dL) 134 H 139 H (75-99) mg/dL Calcium (8.4-10.2) mg/dL Ferritin 2569.2 H (22.0-322.0) ng/mL ALT (4-49) U/L Alkaline Phosphatase (38-126) U/L Lactate Dehydrogenase (313-618) U/L Creatine Kinase (55-170) U/L C-Reactive Protein (<1.0) mg/dL Total Protein (6.3-8.2) g/dL Albumin (3.5-5.0) g/dL 03/28/21 03/28/21 03/28/21 Range/Units 03:55 03:55 05:40 RBC 3.91 L (4.30-5.90) m/uL Hgb 12.2 L (13.0-17.5) gm/dL Hct 35.9 L (39.0-53.0) % Plt Count 94 L (150-450) k/uL Lymphocytes # 0.2 L (1.0-4.8) k/uL ABG pH 7.29 L (7.35-7.45) ABG pCO2 62 H (35-45) mmHg ABG pO2 62 L (83-108) mmHg ABG HCO3 30 H (21-25) mmol/L ABG Total CO2 31 H (19-24) mmol/L ABG O2 Saturation 87.3 L (94-97) % Sodium 133 L (137-145) mmol/L Chloride 89 L (98-107) mmol/L BUN 91 H (9-20) mg/dL Creatinine 4.81 H (0.66-1.25) mg/dL Glucose 119 H (74-99) mg/dL POC Glucose (mg/dL) (75-99) mg/dL Calcium 7.0 L (8.4-10.2) mg/dL Ferritin 1744.2 H (22.0-322.0) ng/mL ALT 114 H (4-49) U/L Alkaline Phosphatase 185 H (38-126) U/L Lactate Dehydrogenase 1147 H (313-618) U/L Creatine Kinase 206 H (55-170) U/L C-Reactive Protein 24.1 H (<1.0) mg/dL Total Protein 5.5 L (6.3-8.2) g/dL Albumin 2.6 L (3.5-5.0) g/dL 03/28/21 Range/Units 12:16 RBC (4.30-5.90) m/uL Hgb (13.0-17.5) gm/dL Hct (39.0-53.0) % Plt Count (150-450) k/uL Lymphocytes # (1.0-4.8) k/uL ABG pH (7.35-7.45) ABG pCO2 (35-45) mmHg ABG pO2 (83-108) mmHg ABG HCO3 (21-25) mmol/L ABG Total CO2 (19-24) mmol/L ABG O2 Saturation (94-97) % Sodium (137-145) mmol/L Chloride (98-107) mmol/L BUN (9-20) mg/dL Creatinine (0.66-1.25) mg/dL Glucose (74-99) mg/dL POC Glucose (mg/dL) 132 H (75-99) mg/dL Calcium (8.4-10.2) mg/dL Ferritin (22.0-322.0) ng/mL ALT (4-49) U/L Alkaline Phosphatase (38-126) U/L Lactate Dehydrogenase (313-618) U/L Creatine Kinase (55-170) U/L C-Reactive Protein (<1.0) mg/dL Total Protein (6.3-8.2) g/dL Albumin (3.5-5.0) g/dL Assessment and Plan Assessment: Acute hypoxic hypercarbic respiratory failure secondary to COVID-19 pneumonia, bilateral with possible arts on mechanical ventilation and intubation Urinary tract infection with E. coli and Klebsiella oxytoca Acute renal failure with acute tubular necrosis, oliguric, recently started on hemodialysis Change in mental status, acute metabolic encephalopathy Right sided pneumothorax on 03/23/2021 as noted on chest x-ray with 2 chest tube placements Hypocalcemia Elevated AST, ALT, possibly acute hepatitis related to COVID-19 thrombocytopenia Acute COVID-19 pneumonia with multifocal groundglass opacities with lower lung organizing consolidation. Hyperglycemia Elevated D-dimer Lactic acidosis Acute renal failure with acute tubular necrosis Leukopenia Acute kidney injury, improved Elevated inflammatory markers Hypertension Hyponatremia Anemia Obesity DVT prophylaxis Full code Recommendations and discussion: Recommend to continue with current medications, management, and symptomatic treatment. Patient's prognosis is extremely guarded. Multiple medical consultations following. Patient continues to be closely monitored in the ICU with multiple medical consultations including nephrology following and patient was recently started on hemodialysis and will continue. Patient's urine culture show Klebsiella oxytoca along with E. coli and is continued on IV Rocephin and continued. Patient continues on dexamethasone along with anticoagulation for DVT prophylaxis. Due to multiple complex medical issues prognosis is extremely guarded. Will repeat a.m. labs along with chest x-ray and continue to monitor closely. Further recommendations to follow. Time with Patient: Greater than 30
[2021-03-28 17:51] LABS: Glucose,Whole Blood 147 mg/dL (75-99)
[2021-03-28 23:53] LABS: Glucose,Whole Blood 153 mg/dL (75-99)
[2021-03-29] MEDS: NOREPINEPHRINE 8 MG in SODIUM CHLORIDE 0.9% 250 ML IV SCH ×2 (00:31→08:58)
[2021-03-29] MEDS: INSULIN ASPART (NovoLOG) 100 UNIT/ML VIAL SQ SCH ×5 (00:35→23:52)
[2021-03-29 04:37] LABS: ABG Base Excess -0.3 mmol/L; ABG HCO3 28 mmol/L (21-25); ABG Oxygen Saturation 92.2 % (94-97); ABG PO2 77 mmHg (83-108); ABG TCO2 30 mmol/L (19-24); Allen Test Performed? Yes
[2021-03-29 04:43] LABS: ABG PH 7.19 (7.35-7.45)
[2021-03-29 04:44] LABS: ABG PCO2 73 mmHg (35-45)
[2021-03-29 04:54] LABS: Basophils % (A) 0 %; Eosinophils % (A) 1 %; HCT 34.7 % (39.0-53.0); HGB 11.8 gm/dL (13.0-17.5); Lymphocytes # (A) 0.3 k/uL (1.0-4.8); Lymphocytes % (A) 4 %; MCH 31.7 pg (25.0-35.0); MCHC 33.9 g/dL (31.0-37.0); MCV 93.6 fL (80.0-100.0); Mean Platelet Volume 9.3; Monocytes # (A) 0.3 k/uL (0-1.0); Monocytes % (A) 4 %; Neutrophils % (A) 91 %; Platelet Count 105 k/uL (150-450); RBC 3.71 m/uL (4.30-5.90); RDW 15.2 % (11.5-15.5); WBC 7.7 k/uL (3.8-10.6)
[2021-03-29 05:10] LABS: Albumin 2.5 g/dL (3.5-5.0); Calcium 7.2 mg/dL (8.4-10.2); Potassium 5.8 mmol/L (3.5-5.1); Total Bilirubin 0.3 mg/dL (0.2-1.3); Total Protein 5.5 g/dL (6.3-8.2)
[2021-03-29 05:20] LABS: C Reactive Protein 19.3 mg/dL (<1.0)
[2021-03-29] MEDS: INSULIN DETEMIR (LEVEMIR) 100 UNIT/ML SYR SQ SCH ×2 (06:09→20:35)
[2021-03-29] MEDS: MIDODRINE 5 MG TAB PO SCH ×3 (06:10→17:24)
--- NOTE | 2021-03-29 07:44 | XR ---
EXAMINATION TYPE: XR chest 1V portable DATE OF EXAM: 03/29/2021 COMPARISON: 03/28/2021 HISTORY: Intubated TECHNIQUE: Single frontal view of the chest is obtained. FINDINGS: Endotracheal tube, NG tube, right jugular central venous catheter are again noted, and the re is right-sided chest tube again seen. No significant pneumothorax. Patchy bibasilar airspace opaci ties with blunting of the the costophrenic angles is again noted. Prominence of the pulmonary interst itium is stable. Cardiomediastinal silhouette is likely stable accounting for rotation. Multiple over lying leads. IMPRESSION: 1. Findings similar to prior exam. Patchy bibasilar airspace opacities with small pleural effusions, right greater than left are stable. Multiple lines and tubes. Pulmonary interstitial prominence may r epresent a component of edema.
[2021-03-29] MEDS: CHLORHEXIDINE GLUCONATE 15 ML CUP MUCOUS MEM SCH ×2 (08:29→20:39)
[2021-03-29] MEDS: ENOXAPARIN 30 MG/0.3 ML SYRINGE SQ SCH (08:29)
[2021-03-29] MEDS: FUROSEMIDE 10 MG/ML 10 ML VIAL IV SCH ×2 (08:29→20:39)
[2021-03-29] MEDS: PANTOPRAZOLE 40 MG/10 ML VIAL IVP SCH (08:30)
[2021-03-29] MEDS: DEXAMETHASONE SOD PHOSPHATE 4 MG/ML 1 ML VIAL IV SCH (08:30)
[2021-03-29 10:50] LABS: Ferritin 1365.7 ng/mL (22.0-322.0)
[2021-03-29] MEDS ORDERED: HEPARIN SODIUM 1,000 UN/ML (10ML VL) ONE (11:15)
[2021-03-29] MEDS: ALBUTEROL HFA INHALER INHALATION PRN ×3 (11:22→20:31)
[2021-03-29 11:34] LABS: Glucose,Whole Blood 106 mg/dL (75-99)
--- NOTE | 2021-03-29 11:41 | P.PN ---
Subjective Progress Note Date: 03/29/21 Principal diagnosis: Respiratory failure Patient doing about the same. Today's ABG show more hypercapnia. Apparently they plan to prone position the patient today. FiO2 down to 70%. Tolerating tube feeds. Objective - Vital Signs Vital signs: Vital Signs Temp 98.7 F 03/29/21 08:00 Pulse 110 H 03/29/21 11:30 Resp 36 H 03/29/21 11:30 BP 117/76 03/29/21 11:30 Pulse Ox 88 L 03/29/21 11:30 Intake & Output 03/28/21 03/29/21 03/29/21 18:59 06:59 18:59 Intake Total 706 1142.055 366.528 Output Total 1740 175 25 Balance -1034 967.055 341.528 Weight 90.9 kg 90.6 kg Intake: IV 292 208 68 D5W 120 130 50 cefTRIAXone 1 gm In 100 Sodium Chloride 0.9% 50 ml @ 100 mls/hr IVPB Q24H [facility] Rx#:[id number] pressure bag 72 78 18 Intake, IV Titration 300 662.055 138.528 Amount Cisatracurium 200 mg In 200 Sodium Chloride 0.9% 180 ml @ 1 MCG/KG/MIN 5.748 mls/hr IV .Q24H [facility] Rx#: [id number] Norepinephrine 8 mg In 38.528 Sodium Chloride 0.9% 250 ml @ 0.05 MCG/KG/MIN 9. 269 mls/hr IV .Q24H [facility] Rx#:[id number] propofoL 1,000 mg In 300 462.055 100 Empty Bag 1 bag @ Titrate IV .Q0M [facility] Rx#: [id number] Tube Feeding 84 182 70 Other 30 90 90 Output: Chest Tube Drainage 0 0 0 Chest Tube Right 0 0 0 Urine 340 175 25 Stool 0 Hemodialysis 1400 Other: Voiding Method Indwelling Catheter Indwelling Catheter Indwelling Catheter ABP, PAP, CO, CI - Last Documented Arterial Blood Pressure 110/61 - Exam Abdomen: Soft, nondistended, nontender - Labs CBC & Chem 7: 03/29/21 04:05 03/29/21 04:05 Labs: Abnormal Lab Results - Last 24 Hours (Table) 03/28/21 03/28/21 03/28/21 Range/Units 12:16 17:50 23:52 RBC (4.30-5.90) m/uL Hgb (13.0-17.5) gm/dL Hct (39.0-53.0) % Plt Count (150-450) k/uL Lymphocytes # (1.0-4.8) k/uL ABG pH (7.35-7.45) ABG pCO2 (35-45) mmHg ABG pO2 (83-108) mmHg ABG HCO3 (21-25) mmol/L ABG Total CO2 (19-24) mmol/L ABG O2 Saturation (94-97) % Sodium (137-145) mmol/L Potassium (3.5-5.1) mmol/L Chloride (98-107) mmol/L BUN (9-20) mg/dL Creatinine (0.66-1.25) mg/dL Glucose (74-99) mg/dL POC Glucose (mg/dL) 132 H 147 H 153 H (75-99) mg/dL Calcium (8.4-10.2) mg/dL Ferritin (22.0-322.0) ng/mL ALT (4-49) U/L Alkaline Phosphatase (38-126) U/L Lactate Dehydrogenase (313-618) U/L C-Reactive Protein (<1.0) mg/dL Total Protein (6.3-8.2) g/dL Albumin (3.5-5.0) g/dL 03/29/21 03/29/21 03/29/21 Range/Units 04:05 04:05 04:32 RBC 3.71 L (4.30-5.90) m/uL Hgb 11.8 L (13.0-17.5) gm/dL Hct 34.7 L (39.0-53.0) % Plt Count 105 L (150-450) k/uL Lymphocytes # 0.3 L (1.0-4.8) k/uL ABG pH 7.19 L* (7.35-7.45) ABG pCO2 73 H* (35-45) mmHg ABG pO2 77 L (83-108) mmHg ABG HCO3 28 H (21-25) mmol/L ABG Total CO2 30 H (19-24) mmol/L ABG O2 Saturation 92.2 L (94-97) % Sodium 132 L (137-145) mmol/L Potassium 5.8 H (3.5-5.1) mmol/L Chloride 93 L (98-107) mmol/L BUN 83 H (9-20) mg/dL Creatinine 4.59 H (0.66-1.25) mg/dL Glucose 107 H (74-99) mg/dL POC Glucose (mg/dL) (75-99) mg/dL Calcium 7.2 L (8.4-10.2) mg/dL Ferritin 1365.7 H (22.0-322.0) ng/mL ALT 89 H (4-49) U/L Alkaline Phosphatase 208 H (38-126) U/L Lactate Dehydrogenase 1227 H (313-618) U/L C-Reactive Protein 19.3 H (<1.0) mg/dL Total Protein 5.5 L (6.3-8.2) g/dL Albumin 2.5 L (3.5-5.0) g/dL 03/29/21 Range/Units 11:32 RBC (4.30-5.90) m/uL Hgb (13.0-17.5) gm/dL Hct (39.0-53.0) % Plt Count (150-450) k/uL Lymphocytes # (1.0-4.8) k/uL ABG pH (7.35-7.45) ABG pCO2 (35-45) mmHg ABG pO2 (83-108) mmHg ABG HCO3 (21-25) mmol/L ABG Total CO2 (19-24) mmol/L ABG O2 Saturation (94-97) % Sodium (137-145) mmol/L Potassium (3.5-5.1) mmol/L Chloride (98-107) mmol/L BUN (9-20) mg/dL Creatinine (0.66-1.25) mg/dL Glucose (74-99) mg/dL POC Glucose (mg/dL) 106 H (75-99) mg/dL Calcium (8.4-10.2) mg/dL Ferritin (22.0-322.0) ng/mL ALT (4-49) U/L Alkaline Phosphatase (38-126) U/L Lactate Dehydrogenase (313-618) U/L C-Reactive Protein (<1.0) mg/dL Total Protein (6.3-8.2) g/dL Albumin (3.5-5.0) g/dL Assessment and Plan (1) Acute respiratory failure due to COVID-19 Narrative/Plan: Patient's respiratory status is about the same. We'll see how patient responds to prone positioning. We will remain on standby for possible tracheostomy and PEG tube placement. Current Visit: Yes Status: Acute Code(s): U07.1 - COVID-19; J96.00 - ACUTE RESPIRATORY FAILURE, UNSP W HYPOXIA OR HYPERCAPNIA SNOMED Code(s): 827189206
--- NOTE | 2021-03-29 13:24 | P.PN ---
Subjective Progress Note Date: 03/29/21 Principal diagnosis: Acute hypoxic respiratory failure secondary to COVID-19 pneumonia 03/23/2021, the patient is being seen for a follow-up. Earlier this morning, the patient was on high flow oxygen with 55 L with an FiO2 of 81%. Subsequently, he became progressively more dyspneic and hypoxic and the patient also developed right-sided chest pain. At that point, he was placed on 100% nonrebreather facemask in addition to his high flow oxygen. His current pulse ox is at 85%. His high flow oxygen is running at extremity liters with an FiO2 of 90%. A chest x-ray was done and showed development of a large right-sided pneumothorax. The patient has also ongoing diffuse pulmonary infiltration involving the left lung. He is currently short of breath. The Neck. Tachyc ardic. Heart rate is around 147, sinus. He is afebrile. He remains on prednisone orally 40 mg by mouth daily. There is COVID-19 related pneumonia/ARDS. The patient will be transferred to the intensive care unit. I will put a Thoravent for him. His platelet count is improving is currently up t o 43. HIV antibodies have been sent and results are still pending. LDH from yesterday was 1002 with a CRP level of 26.4. His inflammatory markers remain elevated although they're not as high as earlier values in regards to his LVH. He is awake. He is conscious. His communicating. He is a bit tachypneic and his current respiratory rate in the mid 30s. IV fluids are running at the rate of 75 mL an hour of normal saline. Remains on multivitamins. Remains on restoril for sleep. He remains on Levemir insulin 40 units daily a.m. and 25 units in p.m. along with a sliding scale coverage. Afebrile. No signs of any fluid overload. \ 03/24, the patient is being seen in follow-up in intensive care unit. He is critically ill and currently intubated on a mechanical ventilator. Events from yesterday were noted. Noted initially the patient developed this moderate- sized right-sided pneumothorax. A Thoravent was inserted and it was successful and the right lung expanded. He was moved to the intensive care unit where he was kept on a combination of high flow oxygen and on the percent nonrebreather facemask. Nevertheless, overnight, his condition decompensated. He became pro gressively more hypoxic. He became progressively more agitated and restless. His pulse ox dropped further and his pO2 on a blood gas was down to 37. At that point, I decided to assess for intubation mechanical ventilation. The patient was intubated successfully and the patient currently has kristen tracheal tube #8. Post intubation, the patient became hypotensive. Immediately a chest x-ray was done that showed a large tension pneumothorax. Immediately a 28-Turkmen chest tube was inserted in the right lung with complete reexpansion of the right chest. Note that the Thoravent is still an adequate location the right chest. He has a right IJ triple-lumen catheter in place. At this point in time, the patient is an assist-control mode at the rate of 36 with a tidal volume of 400 and FiO2 of 100% with a PEEP of 15. Chest x-ray showing diffuse bilateral pulmonary infiltrates right more than left. There is no residual pneumothorax. The right-sided chest tube is in a good location. Output from the chest tube is in the order of 80 mL since the chest tube has been inserted. Also positive air leak. The patient is currently on propofol at 50 mg/kg/m. Patient is also paralyzed with Nimbex at 1 mcg/kg per minute. He is quite successful the mechanical ventilator. Note that post chest tube insertion, the patient improved and the patient's hemodynamics improved. He was taken off pressors. Currently is receiving IV fluids at the rate of 100 mL an hour of D5 150 mEq of sodium bicarbonate. This wish the bicarb infusion was done earlier this morning as the patient was getting acidotic and he has also developed some hyperkalemia. He received also a total of 150 mEq of sodium bicarb IV push which brought his potassium from 6.2 down to 5.4. The most recent blood gas shows a pH of 7.22 with a pCO2 of 68 and pO2 of 103. His peak airway pressure is 36. In terms of COVID-19 treatment, the patient has been maintained on oral prednisone 40 mg IV daily basis. His been on steroids for more than 3 weeks for now. He will be started on enteral feeding for nutritional support. His urine output is known that of 20 mL an hour. His platelet count today is up to 54 and the patient is off Lovenox for now. The antibodies for heparin-induced thrombocytopenia was negative. The d-dimer is down to 1.8. 03/25/2021, the patient is in the intensive care unit, intubated on a mechanical ventilator, sedated and paralyzed. This occurred due to complications of COVID- 19 related pneumonia, ARDS, right-sided pneumothorax. At this point in time, the patient is sedated with propofol which is running at 50 mics of aspirin kilogram per minute and index is at 1 mcg/kg per minute. The patient is quite successful mechanical ventilator. He is an assist-control mode with permissive hypercapnia.. At the rate of 36 with a tidal volume of 400 and FiO2 of 100% with a PEEP of 14. He did have some desaturation in his FiO2 was brought up from 80% to 100%. PH is at 7.27 with a pCO2 of 71 and pO2 of 72 this was done on FiO2 of 100%. His peak airway pressures 34. His static pressures around 32. There is intermittent air leak from the chest tube. The chest x-ray showing diffuse bilateral pulmonary infiltrates consistent with ARDS and there is no evidence of any pneumothorax on today's chest x-ray. Hemodynamically, the patient is on no pressors. Nevertheless, the patient has developed an acute kidney injury. Creatinine is double since yesterday and the patient is not producing any urine output. His creatinine is up to 2.87 with a BUN of 71. I have him on a bicarb infusion to counteract his permissive hypercapnia. His potassium level is at 4.9 and his serum bicarbs at 32 and bicarb infusion is still running at 150 mEq of sodium bicarbonate the rate of 100 mL an hour. He has become somewhat alkalotic, this is essentially metabolic alkalosis. Nevertheless, the overall acid base status is still acidosis in the form of respiratory acidosis with permissive hypercapnia. His platelet count is currently at 62. He was seen by hematology oncology. Heparin-induced thrombocytopenia antibodies have been negative. Lovenox will be started on low- dose knowing that the patient has developed also an acute kidney injury. His d- dimer is down to 1.02. His inflammatory markers including LDH is down to 1212 and his CRP is also added 36. He is receiving enteral feeding for nutritional support and currently is on Nepro at the rate of 14 mL an hour. In terms of his steroids treatment, the patient hasn't placed on Decadron at a dose of 4 mg IV every 24 hours. Condition is critical. Family arrived and was given a full explanation condition. 03/26/2021, the patient is being seen in follow-up in the intensive care unit. He remains intubated, sedated and paralyzed. He is a case of COVID-19 related pneumonia. By ARDS and right-sided pneumothorax. This morning, he still sedated and paralyzed. Propofol still running at 50 g. Nimbex is still running at 1 mcg/kg per minute. Ventilator settings are essentially unchanged compared to yesterday with a rate of 36 and a tidal volume of 400 and FiO2 of 100% with a PEEP of 14. Peak airway pressures 34 which is essentially the same as yesterday. There is still intermittent air leak and the chest tube and out put is minimal at this point in time. There is no evidence of pneumothorax on today's chest x-ray. The blood gases showed some limited improvement in oxygenation. PO2 is up to 82 with a pCO2 of 68 and a pH of 7.34. I dropped FiO2 down to 80%. At the same time, I'm going to give this patient a paralytic holiday today. In terms of his d-dimer, he is at 1.52 and he is on Lovenox 30 mg subcu daily. His inflammatory markers from today shows an LDH level of 97 7 which is improved, CRP level is up to 57.8. The patient remains on a bicarb infusion. Serum bicarb is 3060significant acidosis at this point in time. His acidosis is improved and is at 27.34 and the patient's potassium level is down to 4.4. Nevertheless, he has developed an acute kidney injury as mentioned earlier in his creatinine is at 4.59 and his urine output is order of 5 mL an hour. His net fluid balance is positive in the order of 3.1 and 3.2 L over the past 24-48 hours. As such, nephrology is on the case and the patient may be considered for hemodialysis for fluid retention. He is still requiring pressors and he is on low dose norepinephrine infusion running at 0.03 mics of aspirin kilogram per minute. The patient's platelet counts have been improving and they're up to 72,000. The patient also is on enteral feeding for nutritional support and the patient is receiving Nepro at the rate of 40 mL an hour which is the same as yesterday and the patient is tolerating the enteral feeding without any major issues. No other significant events otherwise for now. 03/27/2021 - seeing this patient for a follow-up. Patient remains intubated on a mechanical ventilator. This morning, the patient is on a propofol running at 60 mcg/kg per minute and the patient is also Nimbex at to make progress. Kilogram per minute.. Quite sick visit a mechanical ventilator. The patient is an assist-control mode at the rate of 36 with tidal volume of 400 and FiO2 of 80% with a PEEP of 14. Morning blood gases showed a pH of 7.37 with a pCO2 of 61 and pO2 of 67. The chest x-ray from this morning is showing no evidence of any pneumothorax. The right-sided chest tube is in place. There is still persistent episodic air leak. Output is minimal as mentioned. Nevertheless, the chest x-ray is not showing any significant pneumothorax. His consistent with COVID-19 related pneumonia/ARDS. Peak airway pressures around 31 static pressures around 28. Anorexia, the patient is on no pressors. Urine output is minimal and the patient continues to be an acute kidney injury. The creatinine from today is at 5.7 with a BUN of 111. This has been discussed with nephrology. I will see the patient is in a positive fluid balance. The patient will need hemodialysis. Vascular surgery has been consulted yesterday and the vascular access has not been established yet. This will be important to be done today. I'm hoping that we can establish hemodialysis today. White cell count at 7.8 with a hemoglobin of 11.7. Potassium level is at 4.8. Serum bicarbs at 34. She will feeds are still running in the form of Nepro at the rate of 40 mL an hour. The patient otherwise has a right IJ triple-lumen catheter, right radial arterial line. Right-sided chest tube. Most recent LDH is at 1113 and the d-dimer is at 1.65. The patient remains on Lovenox. That examination was held yesterday in preparation for a temporary dialysis catheter insertion. Patient was reevaluated today 03/28/2021, patient remains in the ICU, intubated and mechanically ventilated. His assist-control rate is 36, tidal volume is 400 FiO2 is 100% PEEP is 14, ABG showed a pO2 of 62 pCO2 of 62 pH of 7.29. This was on 80% FiO2, and I increased her FiO2 to 100%. Patient is sedated, and paralyzed, he is on propofol at 70 mcg/kg/m, his also on Nimbex at 2 mcg/kg/m. Patient is receiving Nepro for nutritional support/enteral feeding. PEEP was increased today to 16, and the patient is undergoing hemodialysis, recommended norepinephrine if blood pressure is marginal during dialysis. Patient will definitely benefit from more fluid removal and may have to support the low blood pressure with norepinephrine. Patient was intubated on 03/23, his urine has been positive for E. coli and Klebsiella. Remains on Rocephin 1 g every 24 hours. Chest x-ray continues to show bilateral interstitial infiltrates. Consistent with COVID-19 pneumonia. CBC showed WBC count of 7.2 hemoglobin is 12.2 hematocrit is 35.9. Electrolytes are normal. Renal profile is abnormal with BUN of 91 creatinine 4.81 elevated inflammatory markers including LDH of 1147 C- reactive protein of 24 and slightly elevated liver enzymes. Patient remains on Decadron at 4 mg IV push daily, remains on Lovenox at 50 mg subcu daily, Lasix 80 mg IV push every 12 hours Dilaudid every 3 hours when necessary midodrine, and insulin. Patient was reevaluated today on 03/29/2021, remains in the ICU, intubated and mechanically ventilated. Presently on assist control rate of 36, tidal volume was increased yesterday to 450, FiO2 75%, PEEP 16. ABG yesterday on tidal volume of 400 showed a pO2 of 77 pCO2 73 pH of 7.19. Patient remains on propofol at 60 mcg/kg/m, Nimbex at 2 mcg/kg/m. Receiving enteral feeding in the form of Nepro. Receiving hemodialysis this morning, on the goal is to remove 2 L of fluids. Right-sided chest tube remains in place, no air leak noted. And no evidence of pneumothorax on the chest x-ray. However the chest x-ray continues to show bilateral interstitial infiltrates. Peak airway pressure is 38 left toe pressure is also in the low 30s. Obviously this is consistent with ARDS in addition to his COVID-19 pneumonia. WBC count is 7.7 hemoglobin is 11.8. Electrolytes were reviewed potassium is a bit high, but that's because of the acidosis earlier which should be corrected with slight correction of his hypercapnia. LDH remains elevated at 1227, and C-reactive protein is 19.3 Objective - Vital Signs Vital signs: Vital Signs Temp 98.3 F 03/29/21 12:58 Pulse 110 H 03/29/21 12:58 Resp 36 H 03/29/21 12:58 BP 112/61 03/29/21 12:58 Pulse Ox 88 L 03/29/21 11:30 Intake & Output 03/28/21 03/29/21 03/29/21 18:59 06:59 18:59 Intake Total 706 1142.055 366.528 Output Total 6971 648 9902 Balance -1034 967.055 -1658.472 Weight 90.9 kg 90.6 kg Intake: IV 292 208 68 D5W 120 130 50 cefTRIAXone 1 gm In 100 Sodium Chloride 0.9% 50 ml @ 100 mls/hr IVPB Q24H [facility] Rx#:[id number] pressure bag 72 78 18 Intake, IV Titration 300 662.055 138.528 Amount Cisatracurium 200 mg In 200 Sodium Chloride 0.9% 180 ml @ 1 MCG/KG/MIN 5.748 mls/hr IV .Q24H [facility] Rx#: [id number] Norepinephrine 8 mg In 38.528 Sodium Chloride 0.9% 250 ml @ 0.05 MCG/KG/MIN 9. 269 mls/hr IV .Q24H [facility] Rx#:[id number] propofoL 1,000 mg In 300 462.055 100 Empty Bag 1 bag @ Titrate IV .Q0M [facility] Rx#: [id number] Tube Feeding 84 182 70 Other 30 90 90 Output: Chest Tube Drainage 0 0 0 Chest Tube Right 0 0 0 Urine 340 175 25 Stool 0 Hemodialysis 1400 2000 Other: Voiding Method Indwelling Catheter Indwelling Catheter Indwelling Catheter ABP, PAP, CO, CI - Last Documented Arterial Blood Pressure 110/61 - Exam Physical Exam revealed 55-year-old white male sedated and paralyzed, on mechanical ventilation. Patient is now receiving hemodialysis. Head: Atraumatic, normocephalic. Endotracheal tube and orogastric tube are intact. Right-sided chest tube is also intact HEENT:[Neck is supple.] [No neck masses.] [No thyromegaly.] [No JVD.] Chest: Symmetrical expansion fine crackles at the bases no rhonchi and no wheezes.] Right-sided chest tube is intact, no leak noted from the right-sided chest tube. Cardiac Exam: [Normal S1 and S2, no S3 gallop, no murmur.] Abdomen: [Soft, nontender, no megaly, no rebound, no guarding, normal bowel felipa nds.] Extremities: [No clubbing, no edema, no cyanosis.] Neurological Exam: Not assess., patient is sedated and paralyzed. Psychiatric: Could not assess. Skin: No rashes. Musculoskeletal: No deformities. - Labs CBC & Chem 7: 03/29/21 04:05 03/29/21 04:05 Labs: Abnormal Lab Results - Last 24 Hours (Table) 03/28/21 03/28/21 03/29/21 Range/Units 17:50 23:52 04:05 RBC 3.71 L (4.30-5.90) m/uL Hgb 11.8 L (13.0-17.5) gm/dL Hct 34.7 L (39.0-53.0) % Plt Count 105 L (150-450) k/uL Lymphocytes # 0.3 L (1.0-4.8) k/uL ABG pH (7.35-7.45) ABG pCO2 (35-45) mmHg ABG pO2 (83-108) mmHg ABG HCO3 (21-25) mmol/L ABG Total CO2 (19-24) mmol/L ABG O2 Saturation (94-97) % Sodium (137-145) mmol/L Potassium (3.5-5.1) mmol/L Chloride (98-107) mmol/L BUN (9-20) mg/dL Creatinine (0.66-1.25) mg/dL Glucose (74-99) mg/dL POC Glucose (mg/dL) 147 H 153 H (75-99) mg/dL Calcium (8.4-10.2) mg/dL Ferritin (22.0-322.0) ng/mL ALT (4-49) U/L Alkaline Phosphatase (38-126) U/L Lactate Dehydrogenase (313-618) U/L C-Reactive Protein (<1.0) mg/dL Total Protein (6.3-8.2) g/dL Albumin (3.5-5.0) g/dL 03/29/21 03/29/21 03/29/21 Range/Units 04:05 04:32 11:32 RBC (4.30-5.90) m/uL Hgb (13.0-17.5) gm/dL Hct (39.0-53.0) % Plt Count (150-450) k/uL Lymphocytes # (1.0-4.8) k/uL ABG pH 7.19 L* (7.35-7.45) ABG pCO2 73 H* (35-45) mmHg ABG pO2 77 L (83-108) mmHg ABG HCO3 28 H (21-25) mmol/L ABG Total CO2 30 H (19-24) mmol/L ABG O2 Saturation 92.2 L (94-97) % Sodium 132 L (137-145) mmol/L Potassium 5.8 H (3.5-5.1) mmol/L Chloride 93 L (98-107) mmol/L BUN 83 H (9-20) mg/dL Creatinine 4.59 H (0.66-1.25) mg/dL Glucose 107 H (74-99) mg/dL POC Glucose (mg/dL) 106 H (75-99) mg/dL Calcium 7.2 L (8.4-10.2) mg/dL Ferritin 1365.7 H (22.0-322.0) ng/mL ALT 89 H (4-49) U/L Alkaline Phosphatase 208 H (38-126) U/L Lactate Dehydrogenase 1227 H (313-618) U/L C-Reactive Protein 19.3 H (<1.0) mg/dL Total Protein 5.5 L (6.3-8.2) g/dL Albumin 2.5 L (3.5-5.0) g/dL Assessment and Plan Assessment: Impression: Acute hypoxic respiratory failure secondary to acute COVID-19 pneumonia initial diagnosis was on 03/01/2021, received actemra on 03/02/2021, patient was intubated on 03/23/2021, remains sedated and paralyzed since then. Required chest tube placement for barotrauma and right-sided pneumothorax. Patient developed kidney injury requiring hemodialysis and remains on hemodialysis. Acute barotrauma with a right-sided pneumothorax requiring chest tube placement on 03/23. This is expected Elevated inflammatory markers secondary to COVID-19 infection. Acute kidney injury requiring hemodialysis remains on hemodialysis. History of hypertension. Type 2 diabetes. Thrombocytopenia, improving. Hit antibodies negative. History of underlying COPD. Patient will be a failure to wean considering his overall condition, may eventually consult surgery for PEG tube placement and tracheostomy. Will need to discuss his status with family/ and address CODE STATUS again. Patient was DO NOT RESUSCITATE prior to intubation. Recommendation: Trials of placement the patient in prone position today. This will be attempted after his hemodialysis. Is finished today. Continue ventilatory support. Minimal changes made today, PEEP up to 16. FiO2 down to 75% and tidal volume was increased to 450. We'll try today prone position.. Continue paralytics and sedatives. Not ready for any form of weaning. Continue hemodialysis. Use pressors if necessary during hemodialysis. Continue enteral feeding/interstitial support. Continue Decadron. Continue to monitor daily x-rays of the chest and daily labs and renal profile Family has been updated yesterday by Dr. Pruitt, made aware that his condition is critical, and at least given an idea that the patient may require early tracheostomy and PEG tube placement. Continue GI and DVT prophylaxis. No plans to perform any weaning We'll continue to follow, patient remains critically ill. Critical care time is over 30 minutes. Time with Patient: Greater than 30
[2021-03-29] MEDS: HYDROmorphone 1 MG/ML 1 ML SYRINGE IVP PRN (13:34)
--- NOTE | 2021-03-29 15:21 | PN ---
PROGRESS NOTE Patient is seen for followup for acute kidney injury associated with underlying COVID pneumonia and hypotension. The patient's urine output is borderline at about 15 to 10 mL an hour. He has been started on dialysis. The patient is receiving his third treatment today. He was started on 03/27/2021. We have removed about 5.5 L over the last 3 days. Oxygen saturations remain low. There are plans for pronation later on today. FiO2 at 75%, PEEP of 15. Vital signs are reviewed. On examination, blood pressure 112/61, heart rate 110 per minute. Patient is afebrile. Case is discussed with nursing staff. The patient is tolerating tube feeds. Urine output as mentioned, 15-5 mL an hour. Currently seen while undergoing dialysis. Levophed was restarted as blood pressure had been lower with systolic in the high 80s to 90s. LAB: Show sodium 132, potassium 5.8, chloride 93, BUN 83, creatinine 4.59, calcium 7.2, hemoglobin 11.8 g/dL. ASSESSMENT: 1. Acute kidney injury, acute tubular necrosis, currently oliguric, maintained on dialysis started on 03/27/2021. The patient received his third treatment today we have removed about 5.5 L over the last 3 days. 2. Volume overload, slowly improving. 3. Acute hypoxic respiratory failure secondary to pneumonia/ARDS, currently needing pronation for oxygenation. 4. Hyperkalemia associated with acute kidney injury. Expect improvement post dialysis. 5. Hypotension associated with underlying infection. 6. Large right-sided pneumothorax with chest tube. PLAN: Hemodialysis in a.m. Increase UF as tolerated. MMODL / IJN: [id number] /
[2021-03-29] MEDS: CISATRACURIUM 200 MG in SODIUM CHLORIDE 0.9% 180 ML IV SCH (15:48)
--- NOTE | 2021-03-29 16:27 | PN ---
PROGRESS NOTE DATE OF SERVICE: 03/29/2021 This 55-year-old gentleman was admitted with acute hypoxic respiratory failure, Covid 19 pneumonia is being closely monitored at this time. Chest x-ray showed bilateral lesions. The patient also had basilar pneumothorax. No air leak has been determined at this time. The most recent chest x-ray which was done today and reviewed personally by me showed significant bilateral lung lesions. Dr. Alcaraz also planning at this time. The patient also had worsening renal failure and the hemodialysis initiated. The patient also had respiratory acidosis. Possibly combination of respiratory and metabolic acidosis also. The patient has anemia and thrombocytopenia, which are stable at this time. PAST MEDICAL HISTORY: Reviewed. REVIEW OF SYSTEMS: Could not be taken. CURRENT MEDICATIONS: Tylenol, Ventolin, Rocephin, Peridex, , Librium, Lasix. Dilaudid, NovoLog, Levemir. PHYSICAL EXAMINATION: Patient is alert, oriented x3. Pulse is 105, blood pressure 97/58, respiration 36, temperature is 98.3. Pulse ox 88 percent on mechanical ventilation. Vent settings are noted. HEENT: Conjunctivae normal. NECK: No jugular venous distention. CARDIOVASCULAR SYSTEM: S1, S2 muffled. RESPIRATORY SYSTEM: Breath sounds diminished at the bases. A few scattered rhonchi and crackles. ABDOMEN: Soft, nontender. LEGS are no edema. No swelling. NERVOUS SYSTEM: No focal deficits. LAB STUDIES: WBC 7.7, hemoglobin 11.8. Sodium 130, potassium 5.8, creatinine 4.59. ASSESSMENT: 1. Acute hypoxic hypercarbic respiratory failure secondary to Covid 19 pneumonia with possibly ARDS on mechanical ventilation and intubation. 2. Urinary tract infection with E coli and Klebsiella oxytoca. 3. Acute renal failure with acute tubular necrosis. Oligoanuric newly started hemodialysis. 4. Change in mental status, acute metabolic encephalopathy. 5. Right-sided pneumothorax on chest tube. 6. Elevated AST/ALT possibly acute hepatitis secondary to Covid 19. 7. Hypocalcemia. 8. Thrombocytopenia, stable. 9. Acute COVID-19 pneumonia with multiple ground-glass opacities with consolidation. 10.Hyperglycemia. 11.Elevated D-dimer. 12.Lactic acidosis. 13.Acute renal failure with acute tubular necrosis. 14.Leukopenia. 15.Elevated inflammatory markers of Covid 19. 16.Hypertension. 17.Hyponatremia. 18.Anemia of chronic disease. 19.Obesity. 20.FULL CODE. RECOMMENDATIONS AND DISCUSSION: Continue current medications, symptomatic treatment. Otherwise continue with mechanical ventilation. Continue with bronchodilators. Continue with the dexamethasone. Continue with empiric antibiotics. As mentioned earlier, the most recent cultures are negative except the urine culture. Otherwise, we will continue to monitor. Repeat labs. Closely follow with Dr. Alcaraz. Continue the hemodialysis. Prognosis is extremely guarded because of multiple complex medical issues as mentioned earlier. We will monitor the LFTs closely. MMZEVL / IJN: [id number] / MTDD
[2021-03-29 18:22] LABS: Glucose,Whole Blood 114 mg/dL (75-99)
[2021-03-29 20:36] LABS: Glucose,Whole Blood 118 mg/dL (75-99)
[2021-03-29 23:14] LABS: Albumin 2.5 g/dL (3.5-5.0); Calcium 7.2 mg/dL (8.4-10.2); Potassium 5.5 mmol/L (3.5-5.1); Total Bilirubin 0.4 mg/dL (0.2-1.3); Total Protein 5.6 g/dL (6.3-8.2)
[2021-03-29 23:51] LABS: Glucose,Whole Blood 108 mg/dL (75-99)
--- NOTE | 2021-03-29 23:55 | XR ---
EXAMINATION TYPE: XR chest 1V DATE OF EXAM: 03/29/2021 COMPARISON: Today HISTORY: Respiratory failure TECHNIQUE: Single view FINDINGS: There is right jugular catheter with tip in the superior vena cava. The endotracheal tube i s 5.5 cm from the rimma. There is pulmonary interstitial and airspace edema. There is nasogastric tu be in the stomach. There is slight blunting right costophrenic angle. There is right chest tube over the right upper lung field. No pneumothorax. IMPRESSION: Pulmonary edema could relate to RDS is not significantly different than exam this morning .
[2021-03-30] MEDS ORDERED: CALCIUM GLUCONATE 1 GM in SODIUM CHLORIDE 0.9% 100 ML IVPB ONE (02:24)
[2021-03-30] MEDS: CISATRACURIUM 200 MG in SODIUM CHLORIDE 0.9% 180 ML IV SCH ×2 (02:58→17:53)
[2021-03-30 04:45] LABS: Albumin 2.6 g/dL (3.5-5.0); Calcium 7.5 mg/dL (8.4-10.2); Potassium 5.4 mmol/L (3.5-5.1); Total Bilirubin 0.4 mg/dL (0.2-1.3); Total Protein 5.6 g/dL (6.3-8.2)
[2021-03-30 04:47] LABS: HCT 36.1 % (39.0-53.0); HGB 12.3 gm/dL (13.0-17.5); Hypochromasia Slight; MCH 31.9 pg (25.0-35.0); MCV 93.9 fL (80.0-100.0); Mean Platelet Volume 9.7; Platelet Count 141 k/uL (150-450); RBC 3.85 m/uL (4.30-5.90); RDW 15.5 % (11.5-15.5); WBC 8.3 k/uL (3.8-10.6)
[2021-03-30] MEDS ORDERED: DEXTROSE 50% SYRINGE 50 ML IVP STA (05:08)
[2021-03-30] MEDS ORDERED: INSULIN REGULAR 100 UNIT/ML VIAL (IV) IV ONE (05:08)
[2021-03-30 05:24] LABS: Glucose,Whole Blood 127 mg/dL (75-99)
[2021-03-30] MEDS: INSULIN ASPART (NovoLOG) 100 UNIT/ML VIAL SQ SCH ×4 (05:24→23:44)
[2021-03-30 05:41] LABS: Band Neutrophils % 7 %; Eosinophils # (M) 0.17 k/uL (0-0.7); Lymphocytes # (M) 0.33 k/uL (1.0-4.8); Metamyelocytes # (M) 0.17 k/uL (0); Metamyelocytes % 2 %; Monocytes # (M) 0.17 k/uL (0-1.0); Myelocytes # (M) 0.08 k/uL (0); Myelocytes % 1 %; Neutrophils % (M) 83 %; Nucleated Red Blood Cells 0 /100 WBC (0-0); Total Cells Counted 200
[2021-03-30 06:04] LABS: ABG Base Excess -5.3 mmol/L; ABG HCO3 23 mmol/L (21-25); ABG Oxygen Saturation 90.9 % (94-97); ABG PCO2 56 mmHg (35-45); ABG PH 7.22 (7.35-7.45); ABG PO2 72 mmHg (83-108); ABG TCO2 24 mmol/L (19-24)
[2021-03-30 06:06] LABS: Allen Test Performed? no
[2021-03-30] MEDS: MIDODRINE 5 MG TAB PO SCH ×3 (06:26→17:05)
[2021-03-30] MEDS: INSULIN DETEMIR (LEVEMIR) 100 UNIT/ML SYR SQ SCH ×2 (06:27→21:14)
[2021-03-30] MEDS: ALBUTEROL HFA INHALER INHALATION PRN ×3 (07:45→14:50)
--- NOTE | 2021-03-30 07:59 | XR ---
EXAMINATION TYPE: XR chest 1V DATE OF EXAM: 03/30/2021 COMPARISON: 03/29/2021 HISTORY: Covid TECHNIQUE: Single frontal view of the chest is obtained. FINDINGS: Right IJ catheter is seen with its tip at the cavoatrial junction. Endotracheal tube is ab ove the rimma 4.5 cm. Enteric catheter courses towards the stomach, tip not seen. Right-sided chest tube. Multiple overlying leads. Cardiomediastinal silhouette is within normal limits. Patchy bibasila r airspace opacities, right greater than left have decreased since prior exam. Probable [id number] rate right pleural effusion and tiny left pleural effusion. Pulmonary interstitial prominence suggest izzy of mild edema has decreased. No pneumothorax. IMPRESSION: 1. Mildly decreased patchy airspace opacities at the lung bases with small to moderate right pleural effusion and tiny left pleural effusion. Multiple overlying lines and leads. Pulmonary interstitial p rominence suggestive of mild edema has decreased.
[2021-03-30] MEDS: PANTOPRAZOLE 40 MG/10 ML VIAL IVP SCH (08:53)
[2021-03-30] MEDS: CHLORHEXIDINE GLUCONATE 15 ML CUP MUCOUS MEM SCH ×2 (08:53→21:14)
[2021-03-30] MEDS: DEXAMETHASONE SOD PHOSPHATE 4 MG/ML 1 ML VIAL IV SCH (08:53)
[2021-03-30] MEDS: FUROSEMIDE 10 MG/ML 10 ML VIAL IV SCH ×2 (08:53→21:14)
[2021-03-30] MEDS: ENOXAPARIN 30 MG/0.3 ML SYRINGE SQ SCH (08:53)
[2021-03-30] MEDS: NOREPINEPHRINE 8 MG in SODIUM CHLORIDE 0.9% 250 ML IV SCH (09:02)
[2021-03-30] MEDS: fentaNYL (PF). 1,000 MCG in SODIUM CHLORIDE 0.9% 80 ML IV SCH (10:42)
[2021-03-30 12:21] LABS: Glucose,Whole Blood 149 mg/dL (75-99)
--- NOTE | 2021-03-30 14:06 | P.PN ---
Subjective Progress Note Date: 03/30/21 Principal diagnosis: Acute hypoxic respiratory failure secondary to COVID-19 pneumonia 03/23/2021, the patient is being seen for a follow-up. Earlier this morning, the patient was on high flow oxygen with 55 L with an FiO2 of 81%. Subsequently, he became progressively more dyspneic and hypoxic and the patient also developed right-sided chest pain. At that point, he was placed on 100% nonrebreather facemask in addition to his high flow oxygen. His current pulse ox is at 85%. His high flow oxygen is running at extremity liters with an FiO2 of 90%. A chest x-ray was done and showed development of a large right-sided pneumothorax. The patient has also ongoing diffuse pulmonary infiltration involving the left lung. He is currently short of breath. The Neck. Tachyc ardic. Heart rate is around 147, sinus. He is afebrile. He remains on prednisone orally 40 mg by mouth daily. There is COVID-19 related pneumonia/ARDS. The patient will be transferred to the intensive care unit. I will put a Thoravent for him. His platelet count is improving is currently up t o 43. HIV antibodies have been sent and results are still pending. LDH from yesterday was 1002 with a CRP level of 26.4. His inflammatory markers remain elevated although they're not as high as earlier values in regards to his LVH. He is awake. He is conscious. His communicating. He is a bit tachypneic and his current respiratory rate in the mid 30s. IV fluids are running at the rate of 75 mL an hour of normal saline. Remains on multivitamins. Remains on restoril for sleep. He remains on Levemir insulin 40 units daily a.m. and 25 units in p.m. along with a sliding scale coverage. Afebrile. No signs of any fluid overload. \ 03/24, the patient is being seen in follow-up in intensive care unit. He is critically ill and currently intubated on a mechanical ventilator. Events from yesterday were noted. Noted initially the patient developed this moderate- sized right-sided pneumothorax. A Thoravent was inserted and it was successful and the right lung expanded. He was moved to the intensive care unit where he was kept on a combination of high flow oxygen and on the percent nonrebreather facemask. Nevertheless, overnight, his condition decompensated. He became pro gressively more hypoxic. He became progressively more agitated and restless. His pulse ox dropped further and his pO2 on a blood gas was down to 37. At that point, I decided to assess for intubation mechanical ventilation. The patient was intubated successfully and the patient currently has kristen tracheal tube #8. Post intubation, the patient became hypotensive. Immediately a chest x-ray was done that showed a large tension pneumothorax. Immediately a 28-Greek chest tube was inserted in the right lung with complete reexpansion of the right chest. Note that the Thoravent is still an adequate location the right chest. He has a right IJ triple-lumen catheter in place. At this point in time, the patient is an assist-control mode at the rate of 36 with a tidal volume of 400 and FiO2 of 100% with a PEEP of 15. Chest x-ray showing diffuse bilateral pulmonary infiltrates right more than left. There is no residual pneumothorax. The right-sided chest tube is in a good location. Output from the chest tube is in the order of 80 mL since the chest tube has been inserted. Also positive air leak. The patient is currently on propofol at 50 mg/kg/m. Patient is also paralyzed with Nimbex at 1 mcg/kg per minute. He is quite successful the mechanical ventilator. Note that post chest tube insertion, the patient improved and the patient's hemodynamics improved. He was taken off pressors. Currently is receiving IV fluids at the rate of 100 mL an hour of D5 150 mEq of sodium bicarbonate. This wish the bicarb infusion was done earlier this morning as the patient was getting acidotic and he has also developed some hyperkalemia. He received also a total of 150 mEq of sodium bicarb IV push which brought his potassium from 6.2 down to 5.4. The most recent blood gas shows a pH of 7.22 with a pCO2 of 68 and pO2 of 103. His peak airway pressure is 36. In terms of COVID-19 treatment, the patient has been maintained on oral prednisone 40 mg IV daily basis. His been on steroids for more than 3 weeks for now. He will be started on enteral feeding for nutritional support. His urine output is known that of 20 mL an hour. His platelet count today is up to 54 and the patient is off Lovenox for now. The antibodies for heparin-induced thrombocytopenia was negative. The d-dimer is down to 1.8. 03/25/2021, the patient is in the intensive care unit, intubated on a mechanical ventilator, sedated and paralyzed. This occurred due to complications of COVID- 19 related pneumonia, ARDS, right-sided pneumothorax. At this point in time, the patient is sedated with propofol which is running at 50 mics of aspirin kilogram per minute and index is at 1 mcg/kg per minute. The patient is quite successful mechanical ventilator. He is an assist-control mode with permissive hypercapnia.. At the rate of 36 with a tidal volume of 400 and FiO2 of 100% with a PEEP of 14. He did have some desaturation in his FiO2 was brought up from 80% to 100%. PH is at 7.27 with a pCO2 of 71 and pO2 of 72 this was done on FiO2 of 100%. His peak airway pressures 34. His static pressures around 32. There is intermittent air leak from the chest tube. The chest x-ray showing diffuse bilateral pulmonary infiltrates consistent with ARDS and there is no evidence of any pneumothorax on today's chest x-ray. Hemodynamically, the patient is on no pressors. Nevertheless, the patient has developed an acute kidney injury. Creatinine is double since yesterday and the patient is not producing any urine output. His creatinine is up to 2.87 with a BUN of 71. I have him on a bicarb infusion to counteract his permissive hypercapnia. His potassium level is at 4.9 and his serum bicarbs at 32 and bicarb infusion is still running at 150 mEq of sodium bicarbonate the rate of 100 mL an hour. He has become somewhat alkalotic, this is essentially metabolic alkalosis. Nevertheless, the overall acid base status is still acidosis in the form of respiratory acidosis with permissive hypercapnia. His platelet count is currently at 62. He was seen by hematology oncology. Heparin-induced thrombocytopenia antibodies have been negative. Lovenox will be started on low- dose knowing that the patient has developed also an acute kidney injury. His d- dimer is down to 1.02. His inflammatory markers including LDH is down to 1212 and his CRP is also added 36. He is receiving enteral feeding for nutritional support and currently is on Nepro at the rate of 14 mL an hour. In terms of his steroids treatment, the patient hasn't placed on Decadron at a dose of 4 mg IV every 24 hours. Condition is critical. Family arrived and was given a full explanation condition. 03/26/2021, the patient is being seen in follow-up in the intensive care unit. He remains intubated, sedated and paralyzed. He is a case of COVID-19 related pneumonia. By ARDS and right-sided pneumothorax. This morning, he still sedated and paralyzed. Propofol still running at 50 g. Nimbex is still running at 1 mcg/kg per minute. Ventilator settings are essentially unchanged compared to yesterday with a rate of 36 and a tidal volume of 400 and FiO2 of 100% with a PEEP of 14. Peak airway pressures 34 which is essentially the same as yesterday. There is still intermittent air leak and the chest tube and out put is minimal at this point in time. There is no evidence of pneumothorax on today's chest x-ray. The blood gases showed some limited improvement in oxygenation. PO2 is up to 82 with a pCO2 of 68 and a pH of 7.34. I dropped FiO2 down to 80%. At the same time, I'm going to give this patient a paralytic holiday today. In terms of his d-dimer, he is at 1.52 and he is on Lovenox 30 mg subcu daily. His inflammatory markers from today shows an LDH level of 97 7 which is improved, CRP level is up to 57.8. The patient remains on a bicarb infusion. Serum bicarb is 3060significant acidosis at this point in time. His acidosis is improved and is at 27.34 and the patient's potassium level is down to 4.4. Nevertheless, he has developed an acute kidney injury as mentioned earlier in his creatinine is at 4.59 and his urine output is order of 5 mL an hour. His net fluid balance is positive in the order of 3.1 and 3.2 L over the past 24-48 hours. As such, nephrology is on the case and the patient may be considered for hemodialysis for fluid retention. He is still requiring pressors and he is on low dose norepinephrine infusion running at 0.03 mics of aspirin kilogram per minute. The patient's platelet counts have been improving and they're up to 72,000. The patient also is on enteral feeding for nutritional support and the patient is receiving Nepro at the rate of 40 mL an hour which is the same as yesterday and the patient is tolerating the enteral feeding without any major issues. No other significant events otherwise for now. 03/27/2021 - seeing this patient for a follow-up. Patient remains intubated on a mechanical ventilator. This morning, the patient is on a propofol running at 60 mcg/kg per minute and the patient is also Nimbex at to make progress. Kilogram per minute.. Quite sick visit a mechanical ventilator. The patient is an assist-control mode at the rate of 36 with tidal volume of 400 and FiO2 of 80% with a PEEP of 14. Morning blood gases showed a pH of 7.37 with a pCO2 of 61 and pO2 of 67. The chest x-ray from this morning is showing no evidence of any pneumothorax. The right-sided chest tube is in place. There is still persistent episodic air leak. Output is minimal as mentioned. Nevertheless, the chest x-ray is not showing any significant pneumothorax. His consistent with COVID-19 related pneumonia/ARDS. Peak airway pressures around 31 static pressures around 28. Anorexia, the patient is on no pressors. Urine output is minimal and the patient continues to be an acute kidney injury. The creatinine from today is at 5.7 with a BUN of 111. This has been discussed with nephrology. I will see the patient is in a positive fluid balance. The patient will need hemodialysis. Vascular surgery has been consulted yesterday and the vascular access has not been established yet. This will be important to be done today. I'm hoping that we can establish hemodialysis today. White cell count at 7.8 with a hemoglobin of 11.7. Potassium level is at 4.8. Serum bicarbs at 34. She will feeds are still running in the form of Nepro at the rate of 40 mL an hour. The patient otherwise has a right IJ triple-lumen catheter, right radial arterial line. Right-sided chest tube. Most recent LDH is at 1113 and the d-dimer is at 1.65. The patient remains on Lovenox. That examination was held yesterday in preparation for a temporary dialysis catheter insertion. Patient was reevaluated today 03/28/2021, patient remains in the ICU, intubated and mechanically ventilated. His assist-control rate is 36, tidal volume is 400 FiO2 is 100% PEEP is 14, ABG showed a pO2 of 62 pCO2 of 62 pH of 7.29. This was on 80% FiO2, and I increased her FiO2 to 100%. Patient is sedated, and paralyzed, he is on propofol at 70 mcg/kg/m, his also on Nimbex at 2 mcg/kg/m. Patient is receiving Nepro for nutritional support/enteral feeding. PEEP was increased today to 16, and the patient is undergoing hemodialysis, recommended norepinephrine if blood pressure is marginal during dialysis. Patient will definitely benefit from more fluid removal and may have to support the low blood pressure with norepinephrine. Patient was intubated on 03/23, his urine has been positive for E. coli and Klebsiella. Remains on Rocephin 1 g every 24 hours. Chest x-ray continues to show bilateral interstitial infiltrates. Consistent with COVID-19 pneumonia. CBC showed WBC count of 7.2 hemoglobin is 12.2 hematocrit is 35.9. Electrolytes are normal. Renal profile is abnormal with BUN of 91 creatinine 4.81 elevated inflammatory markers including LDH of 1147 C- reactive protein of 24 and slightly elevated liver enzymes. Patient remains on Decadron at 4 mg IV push daily, remains on Lovenox at 50 mg subcu daily, Lasix 80 mg IV push every 12 hours Dilaudid every 3 hours when necessary midodrine, and insulin. Patient was reevaluated today on 03/29/2021, remains in the ICU, intubated and mechanically ventilated. Presently on assist control rate of 36, tidal volume was increased yesterday to 450, FiO2 75%, PEEP 16. ABG yesterday on tidal volume of 400 showed a pO2 of 77 pCO2 73 pH of 7.19. Patient remains on propofol at 60 mcg/kg/m, Nimbex at 2 mcg/kg/m. Receiving enteral feeding in the form of Nepro. Receiving hemodialysis this morning, on the goal is to remove 2 L of fluids. Right-sided chest tube remains in place, no air leak noted. And no evidence of pneumothorax on the chest x-ray. However the chest x-ray continues to show bilateral interstitial infiltrates. Peak airway pressure is 38 left toe pressure is also in the low 30s. Obviously this is consistent with ARDS in addition to his COVID-19 pneumonia. WBC count is 7.7 hemoglobin is 11.8. Electrolytes were reviewed potassium is a bit high, but that's because of the acidosis earlier which should be corrected with slight correction of his hypercapnia. LDH remains elevated at 1227, and C-reactive protein is 19.3 Patient was reevaluated today on 04/26/2021, patient remains in the ICU, intubated and mechanically ventilated, sedated and paralyzed. He is on tidal vo lume is 450 FiO2 of 75% PEEP is 16 rate is 36, assist control rate. He is sedated and paralyzed, on Nimbex at 2 mcg/kg/m, propofol at 60 mcg/kg/m, he is also required norepinephrine at 0.08 mcg/kg/m, IV fluids at KVO, patient is receiving dialysis again today. His ABG showed a pO2 of 72 pCO2 of 56 pH of 7.22, I did cut down his FiO2 to 70%, and increased the PEEP up to 18. His peak airway pressure is 38 his plateau pressure is 32. Patient again is receiving dialysis today. Chest x-ray continues to bilateral interstitial infiltrates, possible interstitial edema in addition to infiltrates. Continues to have chest tube in place, no air leak noted. Patient tolerated about 8 hours of prone position yesterday, however developed some cardiac arrhythmia and abnormal EKG as and of 8 hours, and he was placed back in supine position. We'll try to place him back in prone position again today. Patient has been on daily dialysis for the last 1 week. Electrolytes showed potassium of 5.4 BUN is 73 creatinine 3.99. CBC count is 8.3 hemoglobin is 12.3. Objective - Vital Signs Vital signs: Vital Signs Temp 98.0 F 03/30/21 12:00 Pulse 101 H 03/30/21 13:30 Resp 36 H 03/30/21 13:30 BP 100/69 03/30/21 12:30 Pulse Ox 92 L 03/30/21 13:30 Intake & Output 03/29/21 03/30/21 03/30/21 18:59 06:59 18:59 Intake Total 934.077 876.170 500.379 Output Total 2049 Balance -1115.923 849.170 -1509.621 Weight 85 kg Intake: IV 138 186 112 D5W 120 120 70 pressure bag 18 66 42 Intake, IV Titration 492.077 592.170 230.379 Amount Cisatracurium 200 mg In 193.324 155.388 Sodium Chloride 0.9% 180 ml @ 1 MCG/KG/MIN 5.748 mls/hr IV .Q24H [facility] Rx#: [id number] Norepinephrine 8 mg In 68.311 70.961 47.208 Sodium Chloride 0.9% 250 ml @ 0.05 MCG/KG/MIN 9. 269 mls/hr IV .Q24H [facility] Rx#:[id number] propofoL 1,000 mg In 230.442 365.821 183.171 Empty Bag 1 bag @ Titrate IV .Q0M [facility] Rx#: [id number] Tube Feeding 154 98 98 Other 150 60 Output: Chest Tube Drainage 0 Chest Tube Right 0 Urine 50 27 10 Stool 0 Hemodialysis 1999 1999 Other: Voiding Method Indwelling Catheter Indwelling Catheter Indwelling Catheter # Bowel Movements 1 1 ABP, PAP, CO, CI - Last Documented Arterial Blood Pressure 105/55 - Exam Physical Exam revealed 55-year-old white male , receiving dialysis, sedated and paralyzed, on mechanical ventilation. Head: Atraumatic, normocephalic. Endotracheal tube and orogastric tube are intact. Right-sided chest tube is also intact, no air leak noted. HEENT:[Neck is supple.] [No neck masses.] [No thyromegaly.] [No JVD.]noted from the right-sided chest tube. Cardiac Exam: [Normal S1 and S2, no S3 gallop, no murmur.] Abdomen: [Soft, nontender, no megaly, no rebound, no guarding, normal bowel sounds.] Extremities: [No clubbing, no edema, no cyanosis.] Neurological Exam: Not assess., patient is sedated and paralyzed. Psychiatric: Could not assess. Skin: No rashes. Musculoskeletal: No deformities. - Labs CBC & Chem 7: 03/30/21 03:45 03/30/21 03:45 Labs: Abnormal Lab Results - Last 24 Hours (Table) 03/29/21 03/29/21 03/29/21 Range/Units 18:21 20:34 22:25 RBC (4.30-5.90) m/uL Hgb (13.0-17.5) gm/dL Hct (39.0-53.0) % Plt Count (150-450) k/uL Lymphocytes # (Manual) (1.0-4.8) k/uL Metamyelocytes # (Man) (0) k/uL Myelocytes # (Manual) (0) k/uL ABG pH (7.35-7.45) ABG pCO2 (35-45) mmHg ABG pO2 (83-108) mmHg ABG O2 Saturation (94-97) % Sodium 133 L (137-145) mmol/L Potassium 5.5 H (3.5-5.1) mmol/L Chloride 96 L (98-107) mmol/L BUN 68 H (9-20) mg/dL Creatinine 3.84 H (0.66-1.25) mg/dL Glucose 101 H (74-99) mg/dL POC Glucose (mg/dL) 114 H 118 H (75-99) mg/dL Calcium 7.2 L (8.4-10.2) mg/dL ALT 81 H (4-49) U/L Alkaline Phosphatase 191 H (38-126) U/L Total Protein 5.6 L (6.3-8.2) g/dL Albumin 2.5 L (3.5-5.0) g/dL 03/29/21 03/30/21 03/30/21 Range/Units 23:50 03:45 03:45 RBC 3.85 L (4.30-5.90) m/uL Hgb 12.3 L (13.0-17.5) gm/dL Hct 36.1 L (39.0-53.0) % Plt Count 141 L (150-450) k/uL Lymphocytes # (Manual) 0.33 L (1.0-4.8) k/uL Metamyelocytes # (Man) 0.17 H (0) k/uL Myelocytes # (Manual) 0.08 H (0) k/uL ABG pH (7.35-7.45) ABG pCO2 (35-45) mmHg ABG pO2 (83-108) mmHg ABG O2 Saturation (94-97) % Sodium 132 L (137-145) mmol/L Potassium 5.4 H (3.5-5.1) mmol/L Chloride 97 L (98-107) mmol/L BUN 73 H (9-20) mg/dL Creatinine 3.99 H (0.66-1.25) mg/dL Glucose 120 H (74-99) mg/dL POC Glucose (mg/dL) 108 H (75-99) mg/dL Calcium 7.5 L (8.4-10.2) mg/dL ALT 76 H (4-49) U/L Alkaline Phosphatase 179 H (38-126) U/L Total Protein 5.6 L (6.3-8.2) g/dL Albumin 2.6 L (3.5-5.0) g/dL 03/30/21 03/30/21 03/30/21 Range/Units 05:22 06:00 12:20 RBC (4.30-5.90) m/uL Hgb (13.0-17.5) gm/dL Hct (39.0-53.0) % Plt Count (150-450) k/uL Lymphocytes # (Manual) (1.0-4.8) k/uL Metamyelocytes # (Man) (0) k/uL Myelocytes # (Manual) (0) k/uL ABG pH 7.22 L (7.35-7.45) ABG pCO2 56 H (35-45) mmHg ABG pO2 72 L (83-108) mmHg ABG O2 Saturation 90.9 L (94-97) % Sodium (137-145) mmol/L Potassium (3.5-5.1) mmol/L Chloride (98-107) mmol/L BUN (9-20) mg/dL Creatinine (0.66-1.25) mg/dL Glucose (74-99) mg/dL POC Glucose (mg/dL) 127 H 149 H (75-99) mg/dL Calcium (8.4-10.2) mg/dL ALT (4-49) U/L Alkaline Phosphatase (38-126) U/L Total Protein (6.3-8.2) g/dL Albumin (3.5-5.0) g/dL Assessment and Plan Assessment: Impression: Acute hypoxic respiratory failure secondary to acute COVID-19 pneumonia initial diagnosis was on 03/01/2021, received actemra on 03/02/2021, patient was intubated on 03/23/2021, remains sedated and paralyzed since then. Required chest tube placement for barotrauma and right-sided pneumothorax. Patient developed kidney injury requiring hemodialysis and remains on hemodialysis. Acute barotrauma with a right-sided pneumothorax requiring chest tube placement on 5/27. This is expected Elevated inflammatory markers secondary to COVID-19 infection. Acute kidney injury requiring hemodialysis remains on hemodialysis. History of hypertension. Type 2 diabetes. Thrombocytopenia, improving. Hit antibodies negative. History of underlying COPD. Patient will be a failure to wean considering his overall condition, may eventually consult surgery for PEG tube placement and tracheostomy. Will need to discuss his status with family/ and address CODE STATUS again. Patient was DO NOT RESUSCITATE prior to intubation. Recommendation: Continue daily trials of prone position. Increase PEEP to 18, cut down her FiO2 to 70%. Titrate FiO2 maintaining O2 saturation above 90%. Continue ventilatory support. Continue paralytics and sedatives. Not ready for any form of weaning. Continue hemodialysis. Continue pressors for hemodynamic support. Continue enteral feeding/nutritional support. Continue Decadron. Continue to monitor daily x-rays of the chest and daily labs and renal profile Continue GI and DVT prophylaxis. D for any weaning trials. We'll continue to follow, patient remains critically ill. Critical care time is over 30 minutes. Time with Patient: Greater than 30
--- NOTE | 2021-03-30 14:57 | PN ---
PROGRESS NOTE Patient is seen for followup for acute kidney injury. The patient is maintained on dialysis. He is currently receiving daily dialysis treatments. Hemodialysis was started on 03/27/2021. Today it is the patient's fourth treatment. He remains on the vent, FiO2 at 70%. Blood pressure was 112/56, heart rate 111 per minute. Patient is afebrile. Examination shows persistent edema bilaterally. The patient is tolerating tube feeds. Case is discussed with nursing staff. LAB: Show sodium of 132, potassium 5.4, chloride 97, BUN 73, creatinine 3.9, hemoglobin 12.3 g/dL. ASSESSMENT: 1. Acute kidney injury, ATN, currently oliguric and dialysis dependent, received fourth treatment of hemodialysis today. 2. Volume overload. We will continue with daily treatments for now to help with the oxygenation. 3. Acute hypoxic respiratory failure secondary to pneumonia/ARDS. 4. Hyperkalemia associated with acute kidney injury hypercatabolic state, will adjust with dialysis. 5. Hypotension associated with underlying infection, started on Levophed, particularly during dialysis. PLAN: Hemodialysis today and then repeat again in a.m. MMODL / IJN: [id number] /
--- NOTE | 2021-03-30 16:01 | P.PN ---
Subjective Progress Note Date: 03/30/21 Principal diagnosis: Respiratory failure Patient remains in the prone position. He is back up to 18. FiO2 70%. Patient remains sedated and paralyzed. Remains on pressors. Patient is going to receive dialysis today. Objective - Vital Signs Vital signs: Vital Signs Temp 98.0 F 03/30/21 12:00 Pulse 101 H 03/30/21 13:30 Resp 36 H 03/30/21 13:30 BP 100/69 03/30/21 12:30 Pulse Ox 92 L 03/30/21 13:30 Intake & Output 03/29/21 03/30/21 03/30/21 18:59 06:59 18:59 Intake Total 934.077 876.170 558.001 Output Total 2049 Balance -1115.923 849.170 -1451.999 Weight 85 kg Intake: IV 138 186 112 D5W 120 120 70 pressure bag 18 66 42 Intake, IV Titration 492.077 592.170 288.001 Amount Cisatracurium 200 mg In 193.324 155.388 Sodium Chloride 0.9% 180 ml @ 1 MCG/KG/MIN 5.748 mls/hr IV .Q24H [facility] Rx#: [id number] Norepinephrine 8 mg In 68.311 70.961 47.208 Sodium Chloride 0.9% 250 ml @ 0.05 MCG/KG/MIN 9. 269 mls/hr IV .Q24H [facility] Rx#:[id number] propofoL 1,000 mg In 230.442 365.821 240.793 Empty Bag 1 bag @ Titrate IV .Q0M [facility] Rx#: [id number] Tube Feeding 154 98 98 Other 150 60 Output: Chest Tube Drainage 0 Chest Tube Right 0 Urine 50 27 10 Stool 0 Hemodialysis 1999 1999 Other: Voiding Method Indwelling Catheter Indwelling Catheter Indwelling Catheter # Bowel Movements 1 1 ABP, PAP, CO, CI - Last Documented Arterial Blood Pressure 105/55 - Exam Abdomen: Soft, nontender, nondistended - Labs CBC & Chem 7: 03/30/21 03:45 03/30/21 03:45 Labs: Abnormal Lab Results - Last 24 Hours (Table) 03/29/21 03/29/21 03/29/21 Range/Units 18:21 20:34 22:25 RBC (4.30-5.90) m/uL Hgb (13.0-17.5) gm/dL Hct (39.0-53.0) % Plt Count (150-450) k/uL Lymphocytes # (Manual) (1.0-4.8) k/uL Metamyelocytes # (Man) (0) k/uL Myelocytes # (Manual) (0) k/uL ABG pH (7.35-7.45) ABG pCO2 (35-45) mmHg ABG pO2 (83-108) mmHg ABG O2 Saturation (94-97) % Sodium 133 L (137-145) mmol/L Potassium 5.5 H (3.5-5.1) mmol/L Chloride 96 L (98-107) mmol/L BUN 68 H (9-20) mg/dL Creatinine 3.84 H (0.66-1.25) mg/dL Glucose 101 H (74-99) mg/dL POC Glucose (mg/dL) 114 H 118 H (75-99) mg/dL Calcium 7.2 L (8.4-10.2) mg/dL ALT 81 H (4-49) U/L Alkaline Phosphatase 191 H (38-126) U/L Total Protein 5.6 L (6.3-8.2) g/dL Albumin 2.5 L (3.5-5.0) g/dL 03/29/21 03/30/21 03/30/21 Range/Units 23:50 03:45 03:45 RBC 3.85 L (4.30-5.90) m/uL Hgb 12.3 L (13.0-17.5) gm/dL Hct 36.1 L (39.0-53.0) % Plt Count 141 L (150-450) k/uL Lymphocytes # (Manual) 0.33 L (1.0-4.8) k/uL Metamyelocytes # (Man) 0.17 H (0) k/uL Myelocytes # (Manual) 0.08 H (0) k/uL ABG pH (7.35-7.45) ABG pCO2 (35-45) mmHg ABG pO2 (83-108) mmHg ABG O2 Saturation (94-97) % Sodium 132 L (137-145) mmol/L Potassium 5.4 H (3.5-5.1) mmol/L Chloride 97 L (98-107) mmol/L BUN 73 H (9-20) mg/dL Creatinine 3.99 H (0.66-1.25) mg/dL Glucose 120 H (74-99) mg/dL POC Glucose (mg/dL) 108 H (75-99) mg/dL Calcium 7.5 L (8.4-10.2) mg/dL ALT 76 H (4-49) U/L Alkaline Phosphatase 179 H (38-126) U/L Total Protein 5.6 L (6.3-8.2) g/dL Albumin 2.6 L (3.5-5.0) g/dL 03/30/21 03/30/21 03/30/21 Range/Units 05:22 06:00 12:20 RBC (4.30-5.90) m/uL Hgb (13.0-17.5) gm/dL Hct (39.0-53.0) % Plt Count (150-450) k/uL Lymphocytes # (Manual) (1.0-4.8) k/uL Metamyelocytes # (Man) (0) k/uL Myelocytes # (Manual) (0) k/uL ABG pH 7.22 L (7.35-7.45) ABG pCO2 56 H (35-45) mmHg ABG pO2 72 L (83-108) mmHg ABG O2 Saturation 90.9 L (94-97) % Sodium (137-145) mmol/L Potassium (3.5-5.1) mmol/L Chloride (98-107) mmol/L BUN (9-20) mg/dL Creatinine (0.66-1.25) mg/dL Glucose (74-99) mg/dL POC Glucose (mg/dL) 127 H 149 H (75-99) mg/dL Calcium (8.4-10.2) mg/dL ALT (4-49) U/L Alkaline Phosphatase (38-126) U/L Total Protein (6.3-8.2) g/dL Albumin (3.5-5.0) g/dL Assessment and Plan (1) Acute respiratory failure due to COVID-19 Narrative/Plan: Continue supportive care in the ICU. Will remain on standby for possible tracheostomy and PEG tube placement. Current Visit: Yes Status: Acute Code(s): U07.1 - COVID-19; J96.00 - ACUTE RESPIRATORY FAILURE, UNSP W HYPOXIA OR HYPERCAPNIA SNOMED Code(s): 407029350
[2021-03-30 17:59] LABS: Glucose,Whole Blood 143 mg/dL (75-99)
[2021-03-30 18:15] VITALS: RESP 36
[2021-03-30 20:55] LABS: Glucose,Whole Blood 141 mg/dL (75-99)
--- NOTE | 2021-03-30 21:05 | PN ---
PROGRESS NOTE DATE OF SERVICE: 03/30/2021 This 55-year-old gentleman who was admitted with acute bilateral pneumonia, COVID-19 interstitial pneumonia, acute hypoxic respiratory failure on mechanical ventilation. Patient also had a right tension pneumothorax. Chest tube is draining. Patient is currently on tube feeds at 14 and mechanical ventilation 450 tidal volume, ( ), no PEEP. The most recent chest x-ray which was reviewed personally by me showed persistent bilateral lung lesions also. Dr. Alcaraz is following the patient closely. Otherwise, prone ventilation is also being planned at this time. The his urine culture showed E coli and Klebsiella oxytoca which is polysensitive. The patient is also on a small dose of Levophed for pressure support. The patient also receiving hemodialysis. PAST MEDICAL HISTORY: Reviewed. REVIEW OF SYSTEMS: Could not be taken because the patient is mechanically sedated. CURRENT MEDICATIONS ARE: Tylenol, Ventolin, Rocephin, Peridex, ( ), dexamethasone, Lasix, Dilaudid. Doses reviewed. PHYSICAL EXAMINATION: Patient is alert and oriented x3. The patient is mechanically ventilated and sedated. Pulse 104, blood pressure 106/60, respiration 36, temperature normal, pulse ox 98% on mechanical vent, settings as noted. HEENT: Conjunctivae normal. Oral mucosa moist. NECK: No jugular venous distention. No lymph node enlargement. CARDIOVASCULAR: S1, S2, muffled. No S3, no S4, RESPIRATORY: Diminished breath sounds at the bases. A few scattered rhonchi. ABDOMEN: Soft, nontender. LEGS: No edema, no swelling. NERVOUS SYSTEM: Mechanically sedated. LABS: WBC 12.2, hemoglobin is 8.3. ABGs noted. Sodium 132, potassium 5.4, creatinine 3.99. ASSESSMENT: 1. Acute hypoxic hypercarbic respiratory failure secondary to acute COVID-19 interstitial pneumonia, bilateral, with possibly ARDS and on mechanical ventilation and intubation with possible severe sepsis, hypotension and septic shock. 2. Urinary tract infection with Escherichia coli and Klebsiella oxytoca. 3. Acute renal failure, acute tubular necrosis with oligoanuric, newly started on hemodialysis. 4. Change in mental status, acute metabolic encephalopathy. 5. Right-sided tension pneumothorax on chest tube. 6. Elevated AST/ALT, possibly acute hepatitis secondary to COVID-19. 7. Hypocalcemia. 8. Thrombocytopenia, stable. 9. Acute COVID-19 pneumonia with multiple ground-glass opacities with consolidation. 10.Hyperglycemia. 11.Elevated D-dimer. 12.Lactic acidosis. 13.Acute renal failure with acute tubular necrosis. 14.Leukopenia. 15.Elevated inflammatory markers of COVID-19. 16.Hypertension. 17.Hyponatremia. 18.Hyperkalemia. 19.Anemia of chronic disease. 20.Obesity. 21.FULL CODE. RECOMMENDATIONS: Recommend to continue current medications, continue symptomatic treatment. Otherwise, continue empiric antibiotics. Closely follow with Dr. Alcaraz and once the patient is stable the chest tube may be removed. High PEEP is a concern and Dr. Arnett is also following the patient closely for possible tracheostomy and PEG tube insertion. Further recommendations to follow. MMODL / IJN: [id number] /
[2021-03-30 23:43] LABS: Glucose,Whole Blood 144 mg/dL (75-99)
[2021-03-31] MEDS: fentaNYL (PF). 1,000 MCG in SODIUM CHLORIDE 0.9% 80 ML IV SCH (01:39)
[2021-03-31 03:41] LABS: HCT 36.8 % (39.0-53.0); HGB 12.6 gm/dL (13.0-17.5); Hypochromasia Slight; MCH 32.2 pg (25.0-35.0); MCHC 34.3 g/dL (31.0-37.0); MCV 93.9 fL (80.0-100.0); Mean Platelet Volume 9.4; Platelet Count 268 k/uL (150-450); RBC 3.92 m/uL (4.30-5.90); RDW 15.5 % (11.5-15.5); WBC 10.9 k/uL (3.8-10.6)
[2021-03-31 03:51] LABS: Albumin 2.7 g/dL (3.5-5.0); Calcium 7.7 mg/dL (8.4-10.2); Magnesium 2.1 mg/dL (1.6-2.3); Potassium 5.5 mmol/L (3.5-5.1); Total Bilirubin 0.5 mg/dL (0.2-1.3); Total Protein 5.9 g/dL (6.3-8.2)
[2021-03-31 04:01] VITALS: TEMP 99.3
[2021-03-31] MEDS: NOREPINEPHRINE 8 MG in SODIUM CHLORIDE 0.9% 250 ML IV SCH ×2 (04:22→07:09)
--- NOTE | 2021-03-31 05:15 | XR ---
EXAM: XR Chest, 1 View CLINICAL HISTORY: ITS.REASON XR Reason: vent TECHNIQUE: Frontal view of the chest. COMPARISON: Chest radiograph on 03/30/2021 FINDINGS: Hardware: Endotracheal tube terminates in the region of the upper thoracic trachea, approximately 7.3 cm above the rimma. Enteric tube courses past the diaphragm and out of the [id number]. Right internal jugular central venous catheter terminates in the region of the lower SVC. Stable right-sided chest tube. Lungs/pleura: No definite pneumothorax identified. Similar small right pleural effusion. Atelectasis versus scarring versus pneumonia in the right lower lung. Similar interstitial and hazy opacities throughout the lungs may represent pulmonary vasculature congestion/edema versus infectious/inflammatory process. Heart/mediastinum: Normal. No cardiomegaly. Soft tissues: Unremarkable. Bones: No acute fracture. Upper abdomen: Normal. IMPRESSION: 1. Endotracheal tube terminates in the region of the upper thoracic trachea, approximately 7.3 cm above the rimma. Enteric tube courses past the diaphragm and out of the [id number]. Right internal jugular central venous catheter terminates in the region of the lower SVC. 2. Stable right-sided chest tube. No definite pneumothorax identified. 3. Similar small right pleural effusion. Atelectasis versus scarring versus pneumonia in the right lower lung. Similar interstitial and hazy opacities throughout the lungs may represent pulmonary vasculature congestion/edema versus infectious/inflammatory process.
[2021-03-31 05:24] LABS: Band Neutrophils % 22 %; Eosinophils # (M) 0.22 k/uL (0-0.7); Lymphocytes # (M) 0.44 k/uL (1.0-4.8); Metamyelocytes # (M) 0.33 k/uL (0); Metamyelocytes % 3 %; Myelocytes # (M) 0.22 k/uL (0); Myelocytes % 2 %; Neutrophils % (M) 68 %; Nucleated Red Blood Cells 0 /100 WBC (0-0); Total Cells Counted 200
[2021-03-31 05:25] LABS: Toxic Granulation Present; Toxic Vacuolation Present
[2021-03-31] MEDS ORDERED: ASPIRIN 81 MG PO STA (05:34)
[2021-03-31] MEDS ORDERED: CALCIUM GLUCONATE 1 GM in SODIUM CHLORIDE 0.9% 100 ML IVPB ONE (05:34)
[2021-03-31] MEDS: INSULIN ASPART (NovoLOG) 100 UNIT/ML VIAL SQ SCH (05:59)
[2021-03-31 06:00] LABS: ABG Base Excess -8.5 mmol/L; ABG HCO3 21 mmol/L (21-25); ABG Oxygen Saturation 86.8 % (94-97); ABG PCO2 63 mmHg (35-45); ABG PO2 65 mmHg (83-108); ABG TCO2 23 mmol/L (19-24)
[2021-03-31 06:02] LABS: ABG PH 7.13 (7.35-7.45); Allen Test Performed? no
[2021-03-31] MEDS: MIDODRINE 5 MG TAB PO SCH (06:12)
[2021-03-31] MEDS: INSULIN DETEMIR (LEVEMIR) 100 UNIT/ML SYR SQ SCH (06:12)
[2021-03-31] MEDS ORDERED: SODIUM BICARB 8.4% 50 ML SYR (1 MEQ/ML) IV STA (06:37)
[2021-03-31] MEDS ORDERED: SODIUM BICARB 8.4% 50 ML SYR (1 MEQ/ML) ONE (06:41)
[2021-03-31] MEDS: DEXTROSE 5% IN WATER 1,000 ML with SODIUM BICARB (1 MEQ/ML) 150 ML IV SCH ×2 (07:01→07:03)
[2021-03-31 07:07] VITALS: BP 171/87; PULSE 125
[2021-03-31] MEDS ORDERED: MORPHINE SULFATE 2 MG/ML SYRINGE IV PRN (08:00)
--- NOTE | 2021-03-31 09:26 | CONS ---
CONSULTATION Mr. Ortiz is a 55-year-old male who has a history of hypertension and was admitted to the hospital on March 01 with Covid 19 infection and Covid 19 pneumonia. Patient during his hospitalization deteriorated and required a mechanical ventilation and he had evidence of acute renal injury requiring dialysis. He was still intubated and sedated. Yesterday became more hypotensive and had worsening hypoxemia as well as his ptosis. He was in the prone position and he had a what appears to be possible junctional tachycardia. Subsequently, when he was turned back to supine, his rhythm returned to his baseline, but he had a subsequent episode of wide-complex tachycardia that could represent slow ventricular tachycardia or an episode of accelerated junctional rhythm. He is back in his sinus mechanism, but requiring high dose of norepinephrine. He was given IV bicarb and started on bicarb drip. He continues to be hypoxemic. He has, according to the nursing staff and chart, no prior documented history of cardiac disease. He has no history of CHF. He had the chest tube placed because of a pneumothorax. Medications at this time includes: IV norepinephrine. He is on Lovenox subcu, furosemide 80 mg IV q.12 hours, insulin, midodrine, Protonix. He had an EKG yesterday that did raise possibility of anterior wall ST-segment changes, although he has an that was not noted on March 01 on admission. REVIEW OF SYSTEMS: Review of systems could not be obtained. PHYSICAL EXAMINATION: 55-year-old male, sedated and intubated. Blood pressure running in the 110s to 120s with a heart rate in the high 90s. Afebrile with temperature 99.3. HEAD: Normocephalic. Eyes sclerae anicteric. NECK: No bruit. LUNGS with scattered rhonchi. No wheezes. HEART: Regular rate and rhythm S1, S2. No S3. No rub appreciated. ABDOMEN: Soft. Positive bowel sounds. No organomegaly. EXTREMITIES: No edema. LAB DATA: Lab data revealed a pH 7.13, pCO2 of 63, PO2 of 65 with an O2 saturation of 86.8, potassium 5.5. BUN and creatinine 65 and 3.4. His troponin is 0.084. His hemoglobin 12.6, white blood cell of 10.9. His chest x-ray shows an interstitial infiltrate bilaterally, moderate in the right lower lobe. IMPRESSION: 1. Respiratory failure with COVID-19 pneumonia and ARDS picture with prolonged intubation. 2. Atrial arrhythmia and possible accelerated junctional rhythm, probably worsened by the acidosis and respiratory status. 3. Acute renal injury requiring hemodialysis. 4. Remote history of hypertension. 5. Hypotension related to the sepsis. RECOMMENDATION: From the cardiac standpoint, will obtain echocardiogram with Doppler. His arrhythmia and his mild troponin elevation most likely related to the acidosis and respiratory status. I do not believe that we are dealing with primary ischemic event. I will review the echocardiogram. Unfortunately, the patient's prognosis is very poor. According to the nursing staff, the patient was made DNR by the family. Thank you for this consult. We will follow with you. MMODL / IJN: [id number] /
--- NOTE | 2021-04-01 07:14 | DS ---
DISCHARGE SUMMARY DATE OF SERVICE: 03/31/2021 FINAL DIAGNOSES: 1. Preliminary cause of is acute COVID-19 interstitial pneumonia with acute hypoxic respiratory failure. 2. Other diagnoses are acute hypoxic hypercarbic respiratory failure secondary to COVID-19 interstitial pneumonia, bilateral, with possibly ARDS on mechanical ventilation with severe sepsis and septic shock, present on admission. 3. Urinary tract infection with Escherichia coli and Klebsiella oxytoca. 4. Acute renal failure, acute tubular necrosis which is oligoanuric with newly started hemodialysis. 5. Atrial flutter and arrhythmia. 6. Change in mental status acute metabolic encephalopathy. 7. Right-sided tension pneumothorax on chest tube. 8. Elevated AST ALT possibly acute hepatitis secondary to COVID-19. 9. Hypocalcemia. 10.Thrombocytopenia, stable. 11.Acute COVID-19 pneumonia with multiple ground-glass opacities with consolidations bilaterally. 12.Hyperglycemia. 13.Elevated D-dimer. 14.Lactic acidosis. 15.Acute renal failure with acute tubular necrosis. 16.Leukopenia. 17.Elevated inflammatory markers of COVID-19. 18.Hypertension. 19.Hyponatremia. 20.Hyperkalemia. 21.Anemia of chronic disease. 22.Obesity. 23.FULL CODE. HISTORY OF PRESENT ILLNESS: This 55-year-old gentleman with a past medical history of multiple medical problems was admitted with acute COVID-19 pneumonia. The patient developed complications as listed above. The patient was closely monitored on the floor but subsequently patient developed a tension pneumothorax and patient was monitored in ICU. Chest tube was placed. The patient also developed renal failure and hemodialyzed but the patient was hemodynamically unstable. The patient was treated along with multiple consultants including Dr. Alcaraz and Dr. Hennessy and as well as Surgery. The patient was closely monitored. The patient also developed atrial arrhythmias. The patient had significant acute metabolic and respiratory acidosis. Because of the above-mentioned medical issues, patient succumbed while in ICU. Please refer to multiple consultation notes, multiple progress notes and staff notes for further details. The prognosis remained extremely guarded throughout the hospital stay. Dr. Alcaraz and team monitored the patient closely. MMODL / IJN: [id number] /
--- NOTE | 2021-06-16 15:13 | CDI ---
Pneumothorax and barotrauma is documented and patient had Covid-19 and required Airvo high-flow O2 and NRB. Additional clarification is requested regarding the relationship, if any, that exists between the diagnosis and the Airvo high flow O2. Patients Admitting Diagnosis:Covid-19 pneumonia, acute respiratory failure History/Risk Factors: COPD, former smoker Clinical Indicators: Pt presented with acute respiratory failure 2nd to Covid- 19 pneumonia, pt was placed on Airvo high-flow O2. Per the PN on 03/23, pt had developed a pneumothorax and had a chest tube placed. IM PN on 03/24 noted it was a "tension pneumothorax" and the pt was intubated for worsening dyspnea. Per pulm PN on 03/28 the pt had acute barotrauma w/ a right pneumothorax requiring a chest tube placement and that it was expected. Treatment: chest tube, monitoring Consults: Pulmonology, surgery, cardiology What relationship, if any, exists between the diagnosis of pneumothorax and barotrauma and the Airvo high-flow O2: [ ] Pneumothorax/barotrauma is a complication of the Airvo high flow O2 [ ] Pneumothorax/barotrauma is related to patients co-morbid condition(s) of Covid-19 pneumonia and history of COPD [ ] Other please specify [ ] Unable to determine (Template Last Revised: December 2020) Pneumothorax/barotrauma is related to patients co-morbid condition(s) of Covid- 19 pneumonia and history of COPD MTDD
== END 2021-03-31 12:07 | disposition expired | DRG 870 ==
LOC: EC 13:35 → 3SCARD 17:28 → 2SICU 03-02 11:51 → 4SSUR 03-09 12:30 → 2SICU 03-23 13:51
PROVIDERS: ADMIT Internal Medicine; ATTEND Internal Medicine
PROC: 3E033XZ Introduction of Vasopressor into Peripheral Vein, Percutaneous Approach (ICD-10-PCS; 2021-03-01)
PROC: 5A0955A Assistance with Respiratory Ventilation, Greater than 96 Consecutive Hours, High Flow/Velocity Cannula (ICD-10-PCS; 2021-03-01)
PROC: XW033H5 Introduction of Tocilizumab into Peripheral Vein, Percutaneous Approach, New Technology Group 5 (ICD-10-PCS; 2021-03-02)
PROC: 5A09357 Assistance with Respiratory Ventilation, Less than 24 Consecutive Hours, Continuous Positive Airway Pressure (ICD-10-PCS; 2021-03-04)
PROC: 5A1955Z Respiratory Ventilation, Greater than 96 Consecutive Hours (ICD-10-PCS; principal; 2021-03-23)
PROC: 0BH17EZ Insertion of Endotracheal Airway into Trachea, Via Natural or Artificial Opening (ICD-10-PCS; principal; 2021-03-23)
PROC: 0D9670Z Drainage of Stomach with Drainage Device, Via Natural or Artificial Opening (ICD-10-PCS; 2021-03-23)
PROC: 02HV33Z Insertion of Infusion Device into Superior Vena Cava, Percutaneous Approach (ICD-10-PCS; 2021-03-23)
PROC: 0W9930Z Drainage of Right Pleural Cavity with Drainage Device, Percutaneous Approach (ICD-10-PCS; 2021-03-23)
PROC: 3E0G76Z Introduction of Nutritional Substance into Upper GI, Via Natural or Artificial Opening (ICD-10-PCS; 2021-03-24)
PROC: 06HM33Z Insertion of Infusion Device into Right Femoral Vein, Percutaneous Approach (ICD-10-PCS; 2021-03-27)
PROC: 5A1D70Z Performance of Urinary Filtration, Intermittent, Less than 6 Hours Per Day (ICD-10-PCS; 2021-03-28)
DX: A41.89 Other specified sepsis (principal); U07.1 COVID-19; G93.41 Metabolic encephalopathy; J12.82 Pneumonia due to coronavirus disease 2019; J80 Acute respiratory distress syndrome; N17.0 Acute kidney failure with tubular necrosis; R65.21 Severe sepsis with septic shock; J93.0 Spontaneous tension pneumothorax; N39.0 Urinary tract infection, site not specified; E87.1 Hypo-osmolality and hyponatremia; E87.4 Mixed disorder of acid-base balance; I47.1 Supraventricular tachycardia; I48.92 Unspecified atrial flutter; B17.9 Acute viral hepatitis, unspecified; B96.20 Unspecified Escherichia coli [E. coli] as the cause of diseases classified elsewhere; Z66 Do not resuscitate; D63.8 Anemia in other chronic diseases classified elsewhere; D69.59 Other secondary thrombocytopenia; E83.51 Hypocalcemia; Z51.5 Encounter for palliative care; R73.9 Hyperglycemia, unspecified; J98.2 Interstitial emphysema; Z99.2 Dependence on renal dialysis; E87.5 Hyperkalemia; T38.0X5A Adverse effect of glucocorticoids and synthetic analogues, initial encounter; E66.9 Obesity, unspecified; Z68.32 Body mass index [BMI] 32.0-32.9, adult; D72.810 Lymphocytopenia; G47.9 Sleep disorder, unspecified; B96.89 Other specified bacterial agents as the cause of diseases classified elsewhere; E86.0 Dehydration; E87.70 Fluid overload, unspecified; I10 Essential (primary) hypertension; J98.01 Acute bronchospasm; Z74.01 Bed confinement status; Z79.899 Other long term (current) drug therapy; Z87.891 Personal history of nicotine dependence; Z98.890 Other specified postprocedural states; Z71.3 Dietary counseling and surveillance
CPT/HCPCS: 36415; 36600; 71045; 71275; 80048; 80053; 80076; 82550; 82553; 82728; 82805; 83605; 83615; 83735; 83880; 84100; 84132; 84145; 84443; 84484; 85025; 85379; 85384; 85610; 85730; 86022; 86140; 86704; 86706; 87040; 87070; 87077; 87086; 87186; 87205; 87340; 90935; 93005; 94002; 94003; 94640; 94760; 96360; 99291